=== PATIENT | female | born 2000 | race African-American/Black ===

== ENCOUNTER → 2020-11-05 14:37 | Outpatient (CLI) | payer MEDICAID, SELFPAY ==
[2020-11-05 15:01] LABS: Absolute Lymphocyte Count 2.62 X10^3/uL (0.83-4.51); Basophil# 0.02 X10^3/uL; Basophil% 0.2 % (0-1); Eosinophil# 0.09 X10^3/uL; Hematocrit 37.6 % (37-47); Hemoglobin 12.5 g/dL (12.0-15.0); Lymphocyte # 2.62 X10^3/ul (4.0); Lymphocyte % 28.8 % (19-41); Mean Corp Hgb Conc 33.2 g/dL (32-36); Mean Corpuscular Hgb 29.9 pg (27.0-32.0); Mean Platelet Vol. 8.9 fl (6.2-12.0); Monocyte# 0.37 X10^3/uL; Monocyte% 4.1 % (0-10); NRBC Flagged by Analyzer 0 % (0-5); Neutrophil # 5.98 X10^3/uL (2.7-7.7); Neutrophil % 65.7 % (47-70); Platelet Count 335 K/mm3 (150-450); RBC Distribution Width CV 15.1 % (11.6-14.6); RBC Distribution Width SD 49.8 fl (35.1-43.9); Red Blood Count 4.18 M/mm3 (4.2-5.4); White Blood Count 9.1 K/mm3 (4.4-11.0)
[2020-11-09 20:07] LABS: Alternaria tenuis <0.10 kU/L (Class 0); Ash, White <0.10 kU/L (Class 0); Aspergillus fumigatus <0.10 kU/L (Class 0); Bermuda Grass <0.10 kU/L (Class 0); Birch <0.10 kU/L (Class 0); Black Walnut <0.10 kU/L (Class 0); Cat Hair / Dander,Stand <0.10 kU/L (Class 0); Cedar, Mountain <0.10 kU/L (Class 0); Cladosporium herbarum <0.10 kU/L (Class 0); Cockroach, American <0.10 kU/L (Class 0); Cottonwood <0.10 kU/L (Class 0); D farinae Mite 1.38 kU/L (Class II); D pteronyssinus 0.32 kU/L (Class I); Dog Epithelia <0.10 kU/L (Class 0); Elm, American White <0.10 kU/L (Class 0); Immunoglobulin E 11 IU/mL (6-495); Maple/Box Elder <0.10 kU/L (Class 0); Mulberry, White <0.10 kU/L (Class 0); Oak, White <0.10 kU/L (Class 0); Pecan <0.10 kU/L (Class 0); Penicillium Notatum <0.10 kU/L (Class 0); Pigweed, Rough <0.10 kU/L (Class 0); Ragweed, Short/Common <0.10 kU/L (Class 0); Russian Thistle <0.10 kU/L (Class 0); Sheep Sorrel 0.11 kU/L (Class 0/I); Sycamore, American <0.10 kU/L (Class 0); Timothy Grass <0.10 kU/L (Class 0)
[2020-11-09 20:11] LABS: Mouse Urine <0.10 kU/L (Class 0)
[2020-11-10 15:01] LABS: Immunoglobulin E 11 IU/mL (6-495)
== END ==
PROVIDERS: PCP Family Medicine; Referring Provider Internal Medicine Critical Care Medicine; Visit Provider Internal Medicine Critical Care Medicine
DX: J45.909 Unspecified asthma, uncomplicated (principal)
CPT/HCPCS: 36415; 82785; 85025; 86003

== ENCOUNTER 2021-02-15 23:05 | Emergency (ER) | payer MEDICAID, SELFPAY ==
[2021-02-15 23:06] VITALS: BP 139/87; PULSE 101; RESP 18; TEMP 36.2; O2SAT 97; BMI 41.1
[2021-02-15 23:46] LABS: Bedside Glucose > 500 mg/dL (70-110)
[2021-02-15 23:55] LABS: Absolute Lymphocyte Count 2.97 X10^3/uL (0.83-4.51); Absolute Neutrophil Count 5.5 X10^3/uL (2.0-7.7); Basophil# 0.03 X10^3/uL; Basophil% 0.3 % (0-1); Eosinophil# 0.07 X10^3/uL; Eosinophils% 0.8 % (0-5); Hematocrit 41.6 % (37-47); Hemoglobin 14.8 g/dL (12.0-15.0); Lymphocyte # 2.97 X10^3/ul (0.83-4.51); Mean Corp Hgb Conc 35.6 g/dL (32-36); Mean Corpuscular Volume 92.9 fL (81-99); Mean Platelet Vol. 10.1 fl (6.2-12.0); Monocyte# 0.41 X10^3/uL; Monocyte% 4.6 % (0-10); NRBC Flagged by Analyzer 0 % (0-5); Neutrophil # 5.48 X10^3/uL (2.7-7.7); Platelet Count 295 K/mm3 (150-450); RBC Distribution Width CV 13.2 % (11.6-14.6); RBC Distribution Width SD 44.8 fl (35.1-43.9); Red Blood Count 4.48 M/mm3 (4.2-5.4)
[2021-02-16 00:01] LABS: Internal QC Validated? YES +Cl - CLEAR BKGD; Pregnancy, Serum, hCG Quali. NEGATIVE Negative
[2021-02-16 00:29] LABS: Anion Gap 13 (5-15); BUN 9 mg/dL (7-18); BUN/Creat Ratio 6.7 RATIO (10-20); Calcium,Total 8.8 mg/dL (8.5-10.1); Chloride 96 mmol/L (98-107); Creatinine, Serum 1.35 mg/dL (0.55-1.02); EST Glomerular Filtration Rate 52 mL/min (>60); Est Glom Filt Rate - Afr Amer 63 mL/min (>60); Estimated Creatinine Clearance 73.06 ml/min; Glucose 621 mg/dL (74-106); Potassium 4.4 mmol/L (3.5-5.1); Sodium Level 133 mmol/L (136-145)
[2021-02-16] MEDS: 0.9% Normal Saline 1,000 ML 999 ML IV (00:31)
--- NOTE | 2021-02-16 00:34 | EX.ED.DYSGE1 ---
HPI History of Present Illness Chief Complaint: Hyperglycemia Informant: patient Narrative Narrative: Patient is a 20-year-old female with a past medical history of diabetes, asthma who presents to the emergency department for hyperglycemia. She states that she has not been taking any of her insulin over the past couple of days. She follows with her physician for this but was referred to continuous conveyor screen drier but has not had a chance to get an appointment yet. She states that her sugars drop too quickly whenever she is on her normal dose of insulin. They have been tweaking her dose numbers. Because of this she quit taking it altogether. She has been having increased thirst and urination. She has been feeling generally weak. She has been having nausea and vomiting as well. She denies any fevers or chills. No cough. No chest pain. Some intermittent shortness of breath. No change in bowel movements. No abdominal pain. [facility] Medical History (Updated 02/16/21 @ 02:[address] Solis Gant, DO) Asthma Depression Diabetes Essential hypertension History of migraine Insomnia Left ventricular noncompaction Low back pain Pneumonia (09/09/20) Shortness of breath Home Medications L norgest/E estradiol-E estrad 0.15 mg-30 mcg (84)/10 mcg(7) tabs,3mos 1 tab PO DAILY 10/06/20 [History Last Taken Unknown] albuterol sulfate 2.5 mg INHALATION Q6H PRN 10/06/20 [History Last Taken Unknown] albuterol sulfate 90 mcg/actuation aerosol inhaler 2 puff INHALATION Q6H PRN 10/06/20 [History Last Taken Unknown] amlodipine 5 mg tablet 5 mg PO DAILY 10/06/20 [History Last Taken Unknown] budesonide-formoterol HFA 160 mcg-4.5 mcg/actuation aerosol inhaler 2 puff INHALATION BID 10/06/20 [History Last Taken Unknown] cetirizine 10 mg tablet 10 mg PO DAILY 10/06/20 [History Last Taken Unknown] fluticasone furoate 100 mcg-vilanterol 25 mcg/dose inhalation powder 1 inh INHALATION DAILY 10/06/20 [History Last Taken Unknown] fluticasone propionate 50 mcg/actuation nasal spray,suspension 2 spray INTRANASAL DAILY 10/06/20 [History Last Taken Unknown] insulin glargine 100 unit/mL (3 mL) subcutaneous pen 48 unit SC QPM ml 10/06/20 [History Last Taken Unknown] insulin lispro 100 unit/mL subcutaneous pen 9 unit SC TID ml 10/06/20 [History Last Taken Unknown] propranolol 20 mg tablet 20 mg PO BID 10/06/20 [History Last Taken Unknown] sumatriptan succinate 50 mg tablet See Rx Instructions PO .COMPLEX 10/06/20 [History Last Taken Unknown] sertraline 50 mg PO DAILY 02/15/21 [History Last Taken Unknown] Allergy/AdvReac Type Severity Reaction Status Date / Time amoxicillin Allergy Unknown unknown Verified 02/15/21 23:09 azithromycin Allergy Unknown unknown Verified 02/15/21 23:09 [From Zithromax Z-Clyde] Penicillins Allergy Unknown unknown Verified 02/15/21 23:09 Family History Father Suicide Surgical History History of myringotomy History of tonsillectomy and adenoidectomy Social History Smoking Status: Current every day smoker tobacco type: cigarettes alcohol intake: current alcohol intake frequency: a few times a month Alcohol type: hard liquor substance use type: does not use caffeine: No ROS ROS ED Constitutional Constitutional ED: Denies chills or fever(s) Eyes Eyes: Denies change in vision ENT ENT ED: Denies epistaxis or rhinorrhea Cardiovascular Cardiovascular: Denies chest pain or palpitations Respiratory/Chest Respiratory/Chest: Denies cough, dyspnea or dyspnea on exertion Gastrointestinal Gastrointestinal: Reports nausea and vomiting; Denies abdominal pain or diarrhea Genitourinary Genitourinary ED: Reports urinary frequency; Denies dysuria or hematuria Musculoskeletal Musculoskeletal: Denies back pain or neck pain Integumentary Denies rash Neurologic Neurologic: Denies dizziness, headache(s) or weakness Endocrine Endocrinology: Reports polydipsia and polyuria EXAM Physical Exam Const Vital Signs: 02/15/21 23:06 02/15/21 23:41 Temperature 97.1 F L Temperature Source Temporal Pulse Rate 101 H Respiratory Rate 18 Respiratory Effort Normal Non-Labored Respiratory Pattern Normal Blood Pressure 139/87 H Blood Pressure Mean 104 Pulse Ox 97 Oxygen Delivery Method Room Air Positive well nourished and well developed General Appearance ED: well developed and NAD HEENT Reports normocephalic, head/scalp atraumatic and moist mucous membranes Eyes PERRL and EOMs intact bilaterally Neck no lymphadenopathy and supple General: Negative for tenderness Chest Wall inspection of chest normal Resp normal respiratory effort and clear to auscultation bilaterally Auscultation: Negative for rales, rhonchi or wheezes Cardio regular rate, regular rhythm and no murmurs GI normal to inspection, nondistended, normoactive bowel sounds and non-tender Palpation: soft; Negative for guarding or rebound tenderness present Back/Spine no CVA tenderness Extremity normal to inspection General Extremety ED: Negative for edema or tenderness General Extremity: Negative for edema Neuro oriented x3, CN's II-XII intact bilaterally and no sensory deficits noted Sensorium / Orientation: alert Motor Exam: strength 5/5 throughout Psych mental status grossly normal Skin no rashes or lesions noted MDM MDM MDM Narrative Medical decision making narrative: Patient presents to the emergency department for hyperglycemia. She has not been taking any of her insulin over the past couple of days. Upon arrival she is borderline tachycardic but otherwise normal vital signs. She is in no acute distress. Basic lab work was obtained which did show her to be hyperglycemic. She started on normal saline and given a subcu dose of insulin. No evidence of diabetic ketoacidosis. She does have any ketones and she has a normal anion gap. After patient received fluids and insulin her glucose dropped from 621 to 488. The importance of being compliant with insulin medications was discussed with her. I talked her about acute and future risk associated with having elevated blood sugars. Patient otherwise has remained stable throughout ED stay. At this time will discharge home in stable condition. She is to follow-up with her PCP and continuous conveyor screen drier as soon as possible. She understands and is agreeable with plan. All questions were answered. Lab Data Labs: Laboratory Results - last 24 hr 02/15/21 02/15/21 02/15/21 23:35 23:35 23:35 WBC 9.0 RBC 4.48 Hgb 14.8 Hct 41.6 MCV 92.9 MCH 33.0 H MCHC 35.6 RDW Std Deviation 44.8 H RDW Coeff of [place] 13.2 Plt Count 295 MPV 10.1 Immature Gran % (Auto) 0.300 Neut % (Auto) 61.0 Lymph % (Auto) 33.0 Faulk % (Auto) 4.6 Eos % (Auto) 0.8 Baso % (Auto) 0.3 Absolute Neuts (auto) 5.5 Absolute Lymphs (auto) 2.97 Nucleated RBC % 0 Sodium 133 L Potassium 4.4 Chloride 96 L Carbon Dioxide 24.0 Anion Gap 13 BUN 9 Creatinine 1.35 H Estim Creat Clear Calc 73.06 Est GFR (MDRD) Af Amer 63 Est GFR (MDRD) Non-Af 52 L BUN/Creatinine Ratio 6.7 L Glucose 621 H* Calcium 8.8 Serum , Qual NEGATIVE Acetone Level POC Glucose 02/15/21 02/15/21 02/16/21 23:35 23:40 01:44 WBC RBC Hgb Hct MCV MCH MCHC RDW Std Deviation RDW Coeff of [place] Plt Count MPV Immature Gran % (Auto) Neut % (Auto) Lymph % (Auto) Faulk % (Auto) Eos % (Auto) Baso % (Auto) Absolute Neuts (auto) Absolute Lymphs (auto) Nucleated RBC % Sodium Potassium Chloride Carbon Dioxide Anion Gap BUN Creatinine Estim Creat Clear Calc Est GFR (MDRD) Af Amer Est GFR (MDRD) Non-Af BUN/Creatinine Ratio Glucose Calcium Serum , Qual Acetone Level NEGATIVE POC Glucose > 500 H* 488 H* Discharge Plan Triage Chief Complaint: Hyperglycemia ED Provider: Solis Gant Dx/Rx/DC Orders Clinical Impression: Hyperglycemia Instructions: ED Diabetic Hyperglycemia Prescriptions: No Action albuterol sulfate 2.5 mg /3 mL (0.083 %) solution for nebulization 2.5 mg INHALATION Q6H PRN (Reason: Shortness Of Breath Or Wheezing) RF: 0 albuterol sulfate [ProAir HFA] 90 mcg/actuation HFA aerosol inhaler 2 puff INHALATION Q6H PRN (Reason: Shortness Of Breath Or Wheezing) RF: 0 amlodipine 5 mg tablet 5 mg PO DAILY RF: 0 budesonide-formoterol [Symbicort] 160-4.5 mcg/actuation HFA aerosol inhaler 2 puff INHALATION BID RF: 0 cetirizine 10 mg tablet 10 mg PO DAILY RF: 0 L norgest/e.estradiol-e.estrad [Ashlyna] 0.15 mg-30 mcg (84)/10 mcg (7) tablets,dose pack,3 month 1 tab PO DAILY RF: 0 fluticasone propionate [Allergy Relief (fluticasone)] 50 mcg/actuation spray,suspension 2 spray INTRANASAL DAILY RF: 0 Breo Ellipta 100-25 mcg/dose blister with device 1 inh INHALATION DAILY RF: 0 insulin glargine 100 unit/mL (3 mL) insulin pen 48 unit SC QPM RF: 0 insulin lispro 100 unit/mL insulin pen 9 unit SC TID RF: 0 propranolol 20 mg tablet 20 mg PO BID RF: 0 sumatriptan succinate 50 mg tablet See Rx Instructions PO .COMPLEX RF: 0 sertraline 50 mg tablet 50 mg PO DAILY RF: 0 Primary Care Provider: Jose Sultana Referrals: Jose Sultana MD [Primary Care Provider] - 1 Day Disposition Disposition: Home, self care Discharge Date/Time: 02/16/21 02:14
[2021-02-16] MEDS: Insulin Lispro 100 UNIT/ML INSULN.PEN 15 UNIT SC (00:42)
[2021-02-16 01:51] LABS: Bedside Glucose 488 mg/dL (70-110)
== END 2021-02-16 02:14 | disposition home or self-care (01) ==
PROVIDERS: Emergency Provider Emergency Medicine; PCP Family Medicine
DX: E11.65 Type 2 diabetes mellitus with hyperglycemia (principal); J45.909 Unspecified asthma, uncomplicated; I10 Essential (primary) hypertension; F32.9 Major depressive disorder, single episode, unspecified; F17.210 Nicotine dependence, cigarettes, uncomplicated; Z91.14 Patient's other noncompliance with medication regimen; Z79.4 Long term (current) use of insulin; Z79.51 Long term (current) use of inhaled steroids; Z79.899 Other long term (current) drug therapy
CPT/HCPCS: 80048; 82009; 82962; 84703; 85025; 96360; 99283; J7030; A4216

== ENCOUNTER 2021-04-13 00:18 | Emergency (ER) | payer MEDICAID, SELFPAY ==
[2021-04-13 00:19] VITALS: BP 131/75; PULSE 58; RESP 17; TEMP 36.9; O2SAT 99; BMI 43.3
[2021-04-13] MEDS: Lidocaine 1% (20 ml mdv) 20 ML Vial INFILT (01:14)
[2021-04-13] MEDS: Fluconazole 100 MG Tablet 200 MG PO (01:14)
[2021-04-13] MEDS: Lidocaine/Epi/Tetracaine 50 ML 1 APPLIC TOPICAL (01:14)
--- NOTE | 2021-04-13 01:59 | EX.ED.DYSGE1 ---
HPI History of Present Illness Chief Complaint: General Illness Informant: patient Onset/Context/Timing Onset: Days Narrative Narrative: Patient presents with 2 complaints. She complains of a yeast infection that she has had for the last 1 week. She tried some [id number] treatment without improvement. Patient states she also has a growth on her right thigh for the past couple of days that is becoming larger and more painful. She denies fever or chills. [facility] Medical History Asthma Depression Diabetes Essential hypertension History of migraine Insomnia Left ventricular noncompaction Low back pain Pneumonia (09/09/20) Shortness of breath Home Medications albuterol sulfate 2.5 mg INHALATION Q6H PRN 10/06/20 [History Last Taken Unknown] albuterol sulfate 90 mcg/actuation aerosol inhaler 2 puff INHALATION Q6H PRN 10/06/20 [History Last Taken Unknown] amlodipine 5 mg tablet 5 mg PO DAILY 10/06/20 [History Last Taken Unknown] budesonide-formoterol HFA 160 mcg-4.5 mcg/actuation aerosol inhaler 2 puff INHALATION BID 10/06/20 [History Last Taken Unknown] cetirizine 10 mg tablet 10 mg PO DAILY 10/06/20 [History Last Taken Unknown] fluticasone propionate 50 mcg/actuation nasal spray,suspension 2 spray INTRANASAL DAILY 10/06/20 [History Last Taken Unknown] insulin glargine 100 unit/mL (3 mL) subcutaneous pen 48 unit SC QPM ml 10/06/20 [History Last Taken Unknown] insulin lispro 100 unit/mL subcutaneous pen 9 unit SC TID ml 10/06/20 [History Last Taken Unknown] propranolol 20 mg tablet 20 mg PO BID 10/06/20 [History Last Taken Unknown] sumatriptan succinate 50 mg tablet See Rx Instructions PO .COMPLEX 10/06/20 [History Last Taken Unknown] sertraline 50 mg PO DAILY 02/15/21 [History Last Taken Unknown] Allergy/AdvReac Type Severity Reaction Status Date / Time amoxicillin Allergy Unknown unknown Verified 04/13/21 00:24 azithromycin Allergy Unknown unknown Verified 04/13/21 00:24 [From ZiPearltreesx Z-Clyde] Penicillins Allergy Unknown unknown Verified 04/13/21 00:24 Family History Father Suicide Surgical History History of myringotomy History of tonsillectomy and adenoidectomy Social History Smoking Status: Current every day smoker tobacco type: cigarettes alcohol intake: current alcohol intake frequency: a few times a month Alcohol type: hard liquor substance use type: does not use caffeine: No ROS ROS ED Constitutional Constitutional ED: Denies chills or fever(s) Eyes Eyes: Denies change in vision ENT ENT ED: Denies sore throat Cardiovascular Cardiovascular: Denies chest pain Respiratory/Chest Respiratory/Chest: Denies cough or dyspnea Gastrointestinal Gastrointestinal: Denies abdominal pain, diarrhea, nausea or vomiting Genitourinary Genitourinary ED: Denies dysuria Musculoskeletal Musculoskeletal: Denies back pain Integumentary Reports abscess; Denies rash Neurologic Neurologic: Denies headache(s) or weakness Psychiatric Psychiatric: Denies anxiety or depression Endocrine Endocrinology: Denies polydipsia or polyuria Allergic/Immunologic Allergic/Immunologic ED: Denies urticaria EXAM Physical Exam Const Vital Signs: 04/13/21 00:19 04/13/21 02:27 Temperature 98.4 F Temperature Source Oral Pulse Rate 58 L 78 Respiratory Rate 17 15 Blood Pressure 131/75 H 130/78 H Blood Pressure Mean 93 Pulse Ox 99 99 Oxygen Delivery Method Room Air Positive well nourished and well developed General Appearance ED: well developed HEENT Reports normocephalic and head/scalp atraumatic Eyes PERRL and EOMs intact bilaterally Neck supple Chest Wall inspection of chest normal and palpation of chest normal Resp normal respiratory effort and clear to auscultation bilaterally Cardio regular rate and regular rhythm GI normal to inspection, nondistended, normoactive bowel sounds Palpation: soft Extremity normal to inspection Neuro oriented x3 and no sensory deficits noted Sensorium / Orientation: alert Motor Exam: strength 5/5 throughout Psych mental status grossly normal Skin Skin Narrative: 1 cm diameter cutaneous abscess the proximal right thigh. No surrounding cellulitis. MDM MDM MDM Narrative Medical decision making narrative: Patient given a tab of Diflucan. Patient did agree for I&D of her cutaneous abscess. Treatment and Re-Evaluation Comments:: 1 cc 1% lidocaine is used locally after let had been applied to the wound. As I was infusing the lidocaine the abscess open and spontaneously drained. Wound was cleansed and dressed. Discharge Plan Triage Chief Complaint: General Illness ED Provider: Mónica Zhou Dx/Rx/DC Orders Clinical Impression: Yeast vaginitis, Cutaneous abscess Instructions: ED Abscess Incision And Drainage, ED JUAN VAGINITIS Prescriptions: No Action albuterol sulfate 2.5 mg /3 mL (0.083 %) solution for nebulization 2.5 mg INHALATION Q6H PRN (Reason: Shortness Of Breath Or Wheezing) RF: 0 albuterol sulfate [ProAir HFA] 90 mcg/actuation HFA aerosol inhaler 2 puff INHALATION Q6H PRN (Reason: Shortness Of Breath Or Wheezing) RF: 0 amlodipine 5 mg tablet 5 mg PO DAILY RF: 0 budesonide-formoterol [Symbicort] 160-4.5 mcg/actuation HFA aerosol inhaler 2 puff INHALATION BID RF: 0 cetirizine 10 mg tablet 10 mg PO DAILY RF: 0 fluticasone propionate [Allergy Relief (fluticasone)] 50 mcg/actuation spray,suspension 2 spray INTRANASAL DAILY RF: 0 insulin glargine 100 unit/mL (3 mL) insulin pen 48 unit SC QPM RF: 0 insulin lispro 100 unit/mL insulin pen 9 unit SC TID RF: 0 propranolol 20 mg tablet 20 mg PO BID RF: 0 sumatriptan succinate 50 mg tablet See Rx Instructions PO .COMPLEX RF: 0 sertraline 50 mg tablet 50 mg PO DAILY RF: 0 Primary Care Provider: Jose Sultana Referrals: Jose Sultana MD [Primary Care Provider] - 5-7 Days Disposition Disposition: Home, Self Care Discharge Date/Time: 04/13/21 02:28
[2021-04-13 02:27] VITALS: BP 130/78; PULSE 78; RESP 15; O2SAT 99
== END 2021-04-13 02:28 | disposition home or self-care (01) ==
PROVIDERS: Emergency Provider Emergency Medicine; PCP Family Medicine
DX: L02.415 Cutaneous abscess of right lower limb (principal); B37.3 Candidiasis of vulva and vagina; J45.909 Unspecified asthma, uncomplicated; F32.9 Major depressive disorder, single episode, unspecified; E11.9 Type 2 diabetes mellitus without complications; I10 Essential (primary) hypertension; F17.210 Nicotine dependence, cigarettes, uncomplicated; Z79.4 Long term (current) use of insulin; Z79.51 Long term (current) use of inhaled steroids; Z79.899 Other long term (current) drug therapy
CPT/HCPCS: 10060; 99283

== ENCOUNTER 2021-05-15 23:23 | Emergency (ER) | payer MEDICAID, SELFPAY ==
[2021-05-15 23:23] VITALS: BP 144/95; PULSE 91; RESP 20; TEMP 36.9; O2SAT 98; BMI 39.9
--- NOTE | 2021-05-16 00:33 | EDS_ITS ---
HPI History of Present Illness Chief Complaint: General Illness Narrative Narrative: Patient is a 20-year-old female with history of diabetes who states she has had 3 days of nasal congestion and sinus pressure. She denies any known sick contacts or fevers. She denies any cough associated with this. She also reports he has had vaginal discharge consistent with a yeast infection. She states she feels her symptoms have been progressively worsening over the past few days and therefore comes in for evaluation [facility] Medical History (Updated 05/16/21 @ 00:[address] Elroy Jain, ) Asthma Depression Diabetes Essential hypertension History of migraine Insomnia Left ventricular noncompaction Low back pain Pneumonia (09/09/20) Shortness of breath Home Medications albuterol sulfate 2.5 mg INHALATION Q6H PRN 10/06/20 [History Last Taken Unknown] albuterol sulfate 90 mcg/actuation aerosol inhaler 2 puff INHALATION Q6H PRN 10/06/20 [History Last Taken Unknown] amlodipine 5 mg tablet 5 mg PO DAILY 10/06/20 [History Last Taken Unknown] budesonide-formoterol HFA 160 mcg-4.5 mcg/actuation aerosol inhaler 2 puff INHALATION BID 10/06/20 [History Last Taken Unknown] cetirizine 10 mg tablet 10 mg PO DAILY 10/06/20 [History Last Taken Unknown] fluticasone propionate 50 mcg/actuation nasal spray,suspension 2 spray INTRANASAL DAILY 10/06/20 [History Last Taken Unknown] insulin glargine 100 unit/mL (3 mL) subcutaneous pen 55 unit SC QPM ml 10/06/20 [History Last Taken Unknown] insulin lispro 100 unit/mL subcutaneous pen 15 unit SC TID ml 10/06/20 [History Last Taken Unknown] propranolol 20 mg tablet 20 mg PO BID 10/06/20 [History Last Taken Unknown] sumatriptan succinate 50 mg tablet See Rx Instructions PO .COMPLEX 10/06/20 [History Last Taken Unknown] sertraline 50 mg PO DAILY 02/15/21 [History Last Taken Unknown] azelastine 2 spray INTRANASAL BID #30 ml 05/16/21 [Rx Last Taken Unknown] fluconazole [Diflucan] 150 mg PO Q3D 3 Days #3 tab 05/16/21 [Rx Last Taken Unknown] lorazepam 1 mg PO 4X/DAY PRN PRN 05/16/21 [History Last Taken Unknown] prednisone 40 mg PO DAILY #10 tab 05/16/21 [Rx Last Taken Unknown] Allergy/AdvReac Type Severity Reaction Status Date / Time amoxicillin Allergy Unknown unknown Verified 05/16/21 00:12 azithromycin Allergy Unknown unknown Verified 05/16/21 00:12 [From Zithromax Z-Clyde] Penicillins Allergy Unknown unknown Verified 05/16/21 00:12 Family History Father Suicide Surgical History History of myringotomy History of tonsillectomy and adenoidectomy Social History Smoking Status: Former smoker alcohol intake: current alcohol intake frequency: a few times a month Alcohol type: hard liquor substance use type: does not use caffeine: No ROS ROS ED Constitutional Constitutional ED: Denies chills or fever(s) ENT ENT ED: Reports rhinorrhea; Denies sore throat Cardiovascular Cardiovascular: Denies chest pain Respiratory/Chest Respiratory/Chest: Denies cough or dyspnea Gastrointestinal Gastrointestinal: Denies abdominal pain, diarrhea, nausea or vomiting Genitourinary Genitourinary ED: Denies dysuria Musculoskeletal Musculoskeletal: Denies myalgias Integumentary Denies rash Neurologic Neurologic: Denies headache(s) Hematologic/Lymphatic Hematologic/Lymphatic: Denies easy bleeding or easy bruising EXAM Physical Exam Const Vital Signs: 05/15/21 23:23 05/16/21 00:14 Temperature 98.4 F Temperature Source Temporal Pulse Rate 91 Respiratory Rate 20 H Respiratory Effort Normal Non-Labored Respiratory Pattern Normal Blood Pressure 144/95 H Blood Pressure Mean 111 Pulse Ox 98 Oxygen Delivery Method Room Air Positive well nourished and well developed General Appearance ED: well developed HEENT Reports TM's clear and moist mucous membranes HEENT Narrative: Nasal mucosa is hyperemic and boggy with enlarged inferior nasal turbinates. There is cobblestoning the posterior pharynx consistent with sinus drainage but no airway edema or compromise. No pain to palpation over top the maxillary frontal or ethmoid sinuses Tympanic Membrane ED: Yes TM's clear Eyes PERRL and EOMs intact bilaterally Neck supple Neck Narrative: Positive anterior cervical lymphadenopathy noted Resp normal respiratory effort and clear to auscultation bilaterally Cardio regular rate and regular rhythm GI normal to inspection, nondistended, normoactive bowel sounds, non-tender and non-distended Auscultation: normoactive bowel sounds Palpation: soft Extremity normal to inspection Neuro oriented x3 and CN's II-XII intact bilaterally Sensorium / Orientation: alert Psych mental status grossly normal Skin no rashes or lesions noted MDM MDM MDM Narrative Medical decision making narrative: Patient presented to the ER afebrile with clear lungs and no report of cough or signs of respiratory distress. Her 3 days of congestion along with inflamed nasal turbinates indicates a viral illness. As she is not had symptoms for 10 to 14 days and no fever do not feel this is bacterial in nature. We discussed possible Covid swab the patient has no concern for this and therefore does not want one obtained. At this point I feel she has a viral sinusitis and and be placed on symptomatic medications for this but as I have low concern for systemic infection is safe for discharge Discharge Plan Triage Chief Complaint: General Illness ED Provider: Elroy Jain Dx/Rx/DC Orders Clinical Impression: Viral illness Instructions: ED URI, Viral, No Abx (Adult) Prescriptions: New prednisone 20 mg tablet 40 mg PO DAILY Qty: 10 RF: 0 fluconazole [Diflucan] 150 mg tablet 150 mg PO Q3D 3 Days Qty: 3 RF: 0 azelastine 137 mcg (0.1 %) aerosol,spray 2 spray intranasal BID Qty: 30 RF: 0 No Action albuterol sulfate 2.5 mg /3 mL (0.083 %) solution for nebulization 2.5 mg INHALATION Q6H PRN (Reason: Shortness Of Breath Or Wheezing) RF: 0 albuterol sulfate [ProAir HFA] 90 mcg/actuation HFA aerosol inhaler 2 puff INHALATION Q6H PRN (Reason: Shortness Of Breath Or Wheezing) RF: 0 amlodipine 5 mg tablet 5 mg PO DAILY RF: 0 budesonide-formoterol [Symbicort] 160-4.5 mcg/actuation HFA aerosol inhaler 2 puff INHALATION BID RF: 0 cetirizine 10 mg tablet 10 mg PO DAILY RF: 0 fluticasone propionate [Allergy Relief (fluticasone)] 50 mcg/actuation spray,suspension 2 spray INTRANASAL DAILY RF: 0 insulin glargine 100 unit/mL (3 mL) insulin pen 55 unit SC QPM RF: 0 insulin lispro 100 unit/mL insulin pen 15 unit SC TID RF: 0 propranolol 20 mg tablet 20 mg PO BID RF: 0 sumatriptan succinate 50 mg tablet See Rx Instructions PO .COMPLEX RF: 0 sertraline 50 mg tablet 50 mg PO DAILY RF: 0 lorazepam 1 mg tablet 1 mg PO 4X/DAY PRN PRN (Reason: Anxiety) RF: 0 Primary Care Provider: Jose Sultana Referrals: Jose Sultana MD [Primary Care Provider] - Disposition Disposition: Home, Self Care
[2021-05-16] MEDS: Fluconazole 100 MG Tablet 150 MG PO (00:39)
[2021-05-16] MEDS: dexAMETHasone 4 MG Tablet 10 MG PO (01:00)
== END 2021-05-16 01:32 | disposition home or self-care (01) ==
LOC: ED 05-16 00:53
PROVIDERS: Emergency Provider Emergency Medicine; PCP Family Medicine
DX: B34.9 Viral infection, unspecified (principal); J45.909 Unspecified asthma, uncomplicated; F32.9 Major depressive disorder, single episode, unspecified; E11.9 Type 2 diabetes mellitus without complications; I10 Essential (primary) hypertension; Z79.4 Long term (current) use of insulin; Z79.51 Long term (current) use of inhaled steroids; Z79.899 Other long term (current) drug therapy; Z87.891 Personal history of nicotine dependence
CPT/HCPCS: 99283

== ENCOUNTER → 2021-05-20 16:01 | Outpatient (CLI) | payer MEDICAID, SELFPAY ==
[2021-05-20 17:15] LABS: Vitamin B12 403 pg/mL (211-911); Vitamin D,25 Hydroxy 18.1 ng/mL
[2021-05-20 17:23] LABS: Cholesterol 191 mg/dL (200); High Density Lipoprotein 27 mg/dL; Thyroid Stim Hormone (TSH) 2.68 uIU/mL (0.358-3.74); Triglycerides 578 mg/dL
[2021-05-23 08:23] LABS: C-Peptide 1.6 ng/mL (1.1-4.4)
== END ==
PROVIDERS: PCP Family Medicine; Referring Provider Nurse Practitioner Family; Visit Provider Nurse Practitioner Family
DX: E11.9 Type 2 diabetes mellitus without complications (principal); R20.2 Paresthesia of skin
CPT/HCPCS: 36415; 80061; 82306; 82607; 84443; 84681

== ENCOUNTER 2021-06-08 14:14 | Observation (INO) | payer MEDICAID, SELFPAY ==
[2021-06-08] VITALS (12 sets, daily range): BP systolic 124–148; BP diastolic 74–110; PULSE 76–92; RESP 13–19; TEMP 36.2–37.2; O2SAT 96–99; BMI 33.0; BMI 38.0
--- NOTE | 2021-06-08 15:10 | EDS_ITS ---
HPI History of Present Illness Chief Complaint: General Illness Informant: patient Onset/Context/Timing Onset: Days (2) Context: Gradual Onset Timing: Continuous Quality: Burning, aching Location: Back Worsened by: Nothing Relieved by: Nothing Narrative Narrative: Patient presents with cough, sinus pressure, decreased appetite and myalgias for the past 2 days. Patient states it is gradually gotten worse. Patient states it has been constant. Patient states nothing makes it better nothing makes it worse. Patient admits to a cough but denies any sputum production. Patient admits to subjective fevers and chills. Patient admits to some sharp pain in her chest. Patient denies any exposures to COVID-19. Patient states she has not gotten her COVID-19 vaccine. [facility] Medical History Asthma Depression Diabetes Essential hypertension History of migraine Insomnia Left ventricular noncompaction Low back pain Obesity (BMI 30-39.9) Paresthesia Pneumonia (09/09/20) Shortness of breath Home Medications albuterol sulfate 2.5 mg INHALATION Q6H PRN 10/06/20 [History Last Taken Unkno wn] albuterol sulfate 90 mcg/actuation aerosol inhaler 2 puff INHALATION Q6H PRN 10/06/20 [History Last Taken Unknown] amlodipine 5 mg tablet 5 mg PO DAILY 10/06/20 [History Last Taken Unknown] budesonide-formoterol HFA 160 mcg-4.5 mcg/actuation aerosol inhaler 2 puff INHALATION BID 10/06/20 [History Last Taken Unknown] cetirizine 10 mg tablet 10 mg PO DAILY 10/06/20 [History Last Taken Unknown] fluticasone propionate 50 mcg/actuation nasal spray,suspension 2 spray INTRANASAL DAILY 10/06/20 [History Last Taken Unknown] insulin glargine 100 unit/mL (3 mL) subcutaneous pen 55 unit SC QPM ml 10/06/20 [History Last Taken Unknown] insulin lispro 100 unit/mL subcutaneous pen 15 unit SC TID ml 10/06/20 [History Last Taken Unknown] propranolol 20 mg tablet 20 mg PO BID 10/06/20 [History Last Taken Unknown] sumatriptan succinate 50 mg tablet See Rx Instructions PO .COMPLEX 10/06/20 [History Last Taken Unknown] sertraline 50 mg PO DAILY 02/15/21 [History Last Taken Unknown] azelastine 2 spray INTRANASAL BID #30 ml 05/16/21 [Rx Last Taken Unknown] lorazepam 1 mg PO 4X/DAY PRN PRN 05/16/21 [History Last Taken Unknown] cholecalciferol (vitamin D3) 1,250 mcg (50,000 unit) capsule 1,250 mcg PO QWEEK #12 cap 05/21/21 [Rx Last Taken Unknown] Allergy/AdvReac Type Severity Reaction Status Date / Time amoxicillin Allergy Unknown unknown Verified 06/08/21 14:18 azithromycin Allergy Unknown unknown Verified 06/08/21 14:18 [From Zithromax Z-Clyde] Penicillins Allergy Unknown unknown Verified 06/08/21 14:18 Family History Father Suicide Surgical History History of myringotomy History of tonsillectomy and adenoidectomy Social History Smoking Status: Former smoker alcohol intake: current alcohol intake frequency: a few times a month Alcohol type: hard liquor substance use type: does not use caffeine: No ROS ROS ED Constitutional Constitutional ED: Reports chills, fever(s) and subjective Eyes Eyes: Denies blurry vision or change in vision ENT ENT ED: Reports rhinorrhea; Denies sore throat Cardiovascular Cardiovascular: Reports chest pain; Denies palpitations Respiratory/Chest Respiratory/Chest: Reports cough and dyspnea Gastrointestinal Gastrointestinal: Reports nausea and vomiting Genitourinary Genitourinary ED: Denies dysuria or hematuria Musculoskeletal Musculoskeletal: Reports back pain and myalgias; Denies neck pain Integumentary Denies abscess or rash Neurologic Neurologic: Reports headache(s); Denies weakness Allergic/Immunologic Allergic/Immunologic ED: Denies mouth swelling or urticaria EXAM Physical Exam Const Vital Signs: 06/08/21 14:16 06/08/21 17:44 06/08/21 19:34 Temperature 99 F Temperature Source Oral Pulse Rate 92 88 Respiratory Rate 16 16 Blood Pressure 124/94 H 139/74 H Blood Pressure Mean 104 95 Pulse Ox 97 98 99 Oxygen Delivery Method Room Air Room Air Room Air Positive well nourished and well developed General Appearance ED: well developed HEENT Reports moist mucous membranes Neck supple and no JVD Resp normal respiratory effort and clear to auscultation bilaterally Cardio regular rate, regular rhythm and no murmurs GI normal to inspection, nondistended, normoactive bowel sounds and non-tender Palpation: soft Extremity normal to inspection General Extremety ED: Negative for edema or tenderness General Extremity: Negative for edema Neuro oriented x3, CN's II-XII intact bilaterally and no sensory deficits noted Sensorium / Orientation: alert Motor Exam: strength 5/5 throughout Psych mental status grossly normal Skin no rashes or lesions noted MDM MDM MDM Narrative Medical decision making narrative: COVID-19 rapid antigen was obtained and came back positive. CBC was within normal limits. Comprehensive metabolic profile showed an elevated glucose of 550 with CO2 of 17 and anion gap of 18. Because of this, serum acetone was obtained and was small. Urinalysis does not show any evidence of urinary tract infection. Portable 1 view chest x-ray was obtained. On my interpretation, lung núñez are clear. There is normal cardiac si lhouette. Bony thorax is normal. There is no acute process noted. Radiologist also interpreted the x-ray and agrees. Patient was advised of her findings. Patient was started on insulin drip. Case was discussed with the hospitalist. She will admit the patient to ICU. Patient understood and was agreeable with the plan. All questions were answered. Lab Data Attestation: I reviewed the patient's lab results. Labs: Laboratory Results - last 24 hr 06/08/21 06/08/21 06/08/21 15:20 15:24 15:24 WBC 4.8 RBC 4.12 L Hgb 14.2 Hct 38.9 MCV 94.4 MCH 34.5 H MCHC 36.5 H RDW Std Deviation 39.8 RDW Coeff of [place] 11.7 Plt Count 234 MPV 9.9 Immature Gran % (Auto) 0.200 Neut % (Auto) 74.9 H Lymph % (Auto) 18.7 L [place] % (Auto) 5.4 Eos % (Auto) 0.4 Baso % (Auto) 0.4 Absolute Neuts (auto) 3.6 Absolute Lymphs (auto) 0.90 Nucleated RBC % 0.6 Sodium 132 L Potassium 4.7 Chloride 97 L Carbon Dioxide 17.0 L Anion Gap 18 H BUN 15 Creatinine 0.93 Estim Creat Clear Calc 106.05 Est GFR (MDRD) Af Amer 96 Est GFR (MDRD) Non-Af 79 BUN/Creatinine Ratio 16.1 Glucose 550 H* Calcium 9.0 Total Bilirubin 0.30 AST 64 H ALT TNP Alkaline Phosphatase 106 Total Protein 7.9 Albumin 3.4 Globulin 4.5 H Albumin/Globulin Ratio 0.8 L Urine Color Yellow Urine Clarity Sl. Cloudy Urine pH 6.5 Ur Specific [place] 1.010 Urine Protein Negative Urine Glucose (UA) 1000 H Urine Ketones 5 H Urine Occult Blood Negative Urine Nitrite Negative Urine Bilirubin Negative Urine Urobilinogen Normal Ur Leukocyte Esterase Negative Urine RBC 0 SEEN Urine WBC 0 SEEN Ur Squamous Epith Cells 0-5 SEEN Urine Bacteria RARE Urine Mucus 0 SEEN Acetone Level 06/08/21 17:40 WBC RBC Hgb Hct MCV MCH MCHC RDW Std Deviation RDW Coeff of [place] Plt Count MPV Immature Gran % (Auto) Neut % (Auto) Lymph % (Auto) [place] % (Auto) Eos % (Auto) Baso % (Auto) Absolute Neuts (auto) Absolute Lymphs (auto) Nucleated RBC % Sodium Potassium Chloride Carbon Dioxide Anion Gap BUN Creatinine Estim Creat Clear Calc Est GFR (MDRD) Af Amer Est GFR (MDRD) Non-Af BUN/Creatinine Ratio Glucose Calcium Total Bilirubin AST ALT Alkaline Phosphatase Total Protein Albumin Globulin Albumin/Globulin Ratio Urine Color Urine Clarity Urine pH Ur Specific [place] Urine Protein Urine Glucose (UA) Urine Ketones Urine Occult Blood Urine Nitrite Urine Bilirubin Urine Urobilinogen Ur Leukocyte Esterase Urine RBC Urine WBC Ur Squamous Epith Cells Urine Bacteria Urine Mucus Acetone Level SMALL H Radiography Chest X-Ray - ED: 1 View, Read by ED Physician, Read by Radiologist and Normal Diagnostic Testing: Radiology Impression Chest X-Ray 06/08/21 15:45 IMPRESSION: Normal x-ray examination of the chest. Electronically Signed: Kaden Yoder MD at 16:02 EDT Tel , Service support , Treatment and Re-Evaluation Vital Sign Attestation:: Vital signs were reviewed prior to admission. They are stable. 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
[2021-06-08] MEDS: Acetaminophen 500 MG Tablet 1000 MG PO (15:28)
[2021-06-08 15:31] LABS: Mucous, Urine 0 SEEN /hpf (<or=2+); Red Blood Cells-Urine 0 SEEN /hpf (0-5); White Blood Cells 0 SEEN /hpf (0-5)
[2021-06-08 15:37] LABS: Color, Urine Yellow (Yellow); Glucose, Dipstick 1000 mg/dl (Normal); Ketone-Dipstick 5 mg/dl (Negative); Leukocyte Esterase-Dipstick Negative /ul (Negative); Nitrite-Dipstick Negative (Negative); Occult Blood-Urine Negative /ul (Negative); Protein-Dipstick Negative (Negative); Urine Bilirubin Dipstick Negative (Negative); Urine Clarity Sl. Cloudy (Clear); Urine Urobilinogen Normal (Normal); Urine pH 6.5 (5.0 - 8.0)
--- NOTE | 2021-06-08 15:45 | RAD_ITS ---
STUDY: X-RAY CHEST REASON FOR EXAM: Female, 20 years old. Cough TECHNIQUE: Single AP portable view of the chest. COMPARISON: None. FINDINGS: The lungs are clear and expanded. There is no demonstrated pleural abnormality. Normal size heart. Normal mediastinum and blake. Normal visualized pulmonary arteries. Normal visualized aortic arch and descending thoracic aorta. Normal visualized thoracic spine. Normal visualized ribs, clavicles, and shoulders. There is no demonstrated abnormality of the visualized soft tissue structures of the upper abdomen. RAD/Chest 1 View (Portable) IMPRESSION: Normal x-ray examination of the chest. Electronically Signed: Kaden Yoder MD at 16:02 EDT Tel , Service support ,
[2021-06-08 15:46] LABS: Bacteria RARE /hpf (None Seen); Squamous Epithelial Cells - UA 0-5 SEEN /hpf (5-10)
[2021-06-08 16:02] LABS: Absolute Neutrophil Count 3.6 X10^3/uL (2.0-7.7); Basophil# 0.02 X10^3/uL; Basophil% 0.4 % (0-1); Eosinophil# 0.02 X10^3/uL; Eosinophils% 0.4 % (0-5); Hematocrit 38.9 % (37-47); Hemoglobin 14.2 g/dL (12.0-15.0); Lymphocyte % 18.7 % (19-41); Mean Corp Hgb Conc 36.5 g/dL (32-36); Mean Corpuscular Hgb 34.5 pg (27.0-32.0); Mean Corpuscular Volume 94.4 fL (81-99); Mean Platelet Vol. 9.9 fl (6.2-12.0); Monocyte# 0.26 X10^3/uL; Monocyte% 5.4 % (0-10); NRBC Flagged by Analyzer 0.6 % (0-5); Neutrophil # 3.61 X10^3/uL (2.7-7.7); Neutrophil % 74.9 % (47-70); Platelet Count 234 K/mm3 (150-450); RBC Distribution Width CV 11.7 % (11.6-14.6); RBC Distribution Width SD 39.8 fl (35.1-43.9); Red Blood Count 4.12 M/mm3 (4.2-5.4); White Blood Count 4.8 K/mm3 (4.4-11.0)
[2021-06-08 17:26] LABS: ALB/GLOB Ratio 0.8 RATIO (0.9-2.4); AST(SGOT) 64 U/L (15-37); Albumin, Serum 3.4 g/dL (3.2-5.0); Alkaline Phosphatase 106 U/L (45-117); Anion Gap 18 (5-15); BUN 15 mg/dL (7-18); BUN/Creat Ratio 16.1 RATIO (10-20); Chloride 97 mmol/L (98-107); Creatinine, Serum 0.93 mg/dL (0.55-1.02); EST Glomerular Filtration Rate 79 mL/min (>60); Est Glom Filt Rate - Afr Amer 96 mL/min (>60); Estimated Creatinine Clearance 106.05 ml/min; Globulin 4.5 g/dL (2.2-4.2); Glucose 550 mg/dL (74-106); Potassium 4.7 mmol/L (3.5-5.1); Protein, Total 7.9 g/dL (6.4-8.2); Sodium Level 132 mmol/L (136-145)
[2021-06-08] MEDS: 0.9% Normal Saline 1,000 ML 100 ML IV (20:15)
[2021-06-08] MEDS: 0.9% Normal Saline 1,000 ML 999 ML IV (21:00)
--- NOTE | 2021-06-08 21:24 | PCM.HP.STD ---
HPI - General General Date of Admission: 06/08/21 Date of Service: 06/08/21 Chief Complaint: General Illness HPI Narrative SUGEY CHAVEZ, is a 20 F who presented to the emergency department [facility] on 06/08/2021 with a chief complaint of general illness. She reported that for approximately the past 2 days she has had cough, shortness of breath, sinus pressure, nasal drainage, postnasal drip, decreased appetite, myalgias/arthralgias, nausea, vomiting, loose stools, and chills with no fever. She has not been vaccinated for COVID-19. She reported on admission that nothing made it better or worse and states that her cough is dry with no sputum production. Her rapid Covid in the emergency department was positive for COVID-19. Her vital signs are stable and she is not febrile and is satting 97 to 99% on room air at this time. She has no dyspnea and is not tachycardic. Her CBC is overall unremarkable. [facility] CMP shows a hyponatremia but her serum glucose is is greater than 550. Her serum bicarb is 17, her anion gap is 18, her BUN is 15 with a serum creatinine of 0.93. She has mild transaminitis with an AST of 64 but a normal bilirubin. UA shows no sign of infection. Her chest x-ray is unremarkable at this time. She was started on insulin drip and given IV fluids in the emergency department and will be admitted to the intensive care unit. [facility] Medical History Asthma Depression Diabetes Essential hypertension History of migraine Insomnia Left ventricular noncompaction Low back pain Obesity (BMI 30-39.9) Paresthesia Pneumonia (09/09/20) Shortness of breath Home Medications albuterol sulfate 2.5 mg INHALATION Q6H PRN 10/06/20 [History Last Taken Unknown] albuterol sulfate 90 mcg/actuation aerosol inhaler 2 puff INHALATION Q6H PRN 10/06/20 [History Last Taken Unknown] amlodipine 5 mg tablet 5 mg PO DAILY 10/06/20 [History Last Taken Unknown] budesonide-formoterol HFA 160 mcg-4.5 mcg/actuation aerosol inhaler 2 puff INHALATION BID 10/06/20 [History Last Taken Unknown] cetirizine 10 mg tablet 10 mg PO DAILY 10/06/20 [History Last Taken Unknown] fluticasone propionate 50 mcg/actuation nasal spray,suspension 2 spray INTRANASAL DAILY 10/06/20 [History Last Taken Unknown] insulin glargine 100 unit/mL (3 mL) subcutaneous pen 55 unit SC QPM ml 10/06/20 [History Last Taken Unknown] insulin lispro 100 unit/mL subcutaneous pen 15 unit SC TID ml 10/06/20 [History Last Taken Unknown] propranolol 20 mg tablet 20 mg PO BID 10/06/20 [History Last Taken Unknown] sumatriptan succinate 50 mg tablet See Rx Instructions PO .COMPLEX 10/06/20 [History Last Taken Unknown] sertraline 50 mg PO DAILY 02/15/21 [History Last Taken Unknown] azelastine 2 spray INTRANASAL BID #30 ml 05/16/21 [Rx Last Taken Unknown] lorazepam 1 mg PO 4X/DAY PRN PRN 05/16/21 [History Last Taken Unknown] cholecalciferol (vitamin D3) 1,250 mcg (50,000 unit) capsule 1,250 mcg PO QWEEK #12 cap 05/21/21 [Rx Last Taken Unknown] Allergy/AdvReac Type Severity Reaction Status Date / Time amoxicillin Allergy Unknown unknown Verified 06/08/21 14:18 azithromycin Allergy Unknown unknown Verified 06/08/21 14:18 [From Zithromax Z-Clyde] Penicillins Allergy Unknown unknown Verified 06/08/21 14:18 Family History Father Suicide Surgical History History of myringotomy History of tonsillectomy and adenoidectomy Social History Smoking Status: Former smoker alcohol intake: current alcohol intake frequency: a few times a month Alcohol type: hard liquor substance use type: does not use caffeine: No ROS Constitutional Constitutional: Reports chills, fatigue, malaise and weakness; Denies anorexia, change in weight, fever(s), night sweats or other Eyes Eyes: Denies blurry vision, change in eye color, change in vision, discharge from eye(s), double vision, erythema, eye pain, loss of vision or other ENT HEENT: Reports headache(s), nasal congestion, nasal discharge, post nasal drip and sinus pressure; Denies abnormal hearing, dysphagia, ear pain, epistaxis, hearing loss, sore throat or other Cardiovascular Cardiovascular: Denies chest pain, claudication, dyspnea on exertion, edema, lightheadedness, orthopnea, palpitations, paroxysmal nocturnal dyspnea, rapid heart rate, syncope or other Respiratory/Chest Respiratory/Chest: Reports cough and shortness of breath with exertion; Denies dyspnea, excessive phlegm production, hemoptysis, productive cough, shortness of breath at rest, wheezing or other Gastrointestinal Gastrointestinal: Reports loose stools, nausea and vomiting Genitourinary Genitourinary: Denies burning urination, difficulty urinating, dysuria, hematuria, nocturia, urinary frequency, urinary hesitancy, urinary incontinence, urinary urgency or other Musculoskeletal Musculoskeletal: Reports arthralgias and myalgias; Denies back pain, joint pain, joint stiffness, joint swelling, neck pain or other Neurologic Neurologic: Denies abnormal gait, abnormal speech, confusion, disequilibrium, dizziness, focal weakness, headache(s), numbness, paresthesias, seizure-like activity, seizures, syncope, tingling, tremor(s) or other Psychiatric Psychiatric: Denies anxiety, depression, homicidal ideation, suicidal ideation or other Endocrine Endocrinology: Reports polydipsia and polyuria; Denies change in body appearance, cold intolerance, excessive sweating, heat intolerance or other Hematologic/Lymphatic Hematologic/Lymphatic: Denies anemia, easy bleeding, easy bruising, lymphadenopathy or other Allergic/Immunologic Allergic/Immunologic: Denies rhinitis, hives, eczemia, asthma or other Vital Signs Vital Signs Vital Signs: 06/08/21 14:16 06/08/21 17:44 06/08/21 19:34 Temperature 99 F Temperature Source Oral Pulse Rate 92 88 Respiratory Rate 16 16 Blood Pressure 124/94 H 139/74 H Blood Pressure Mean 104 95 Pulse Ox 97 98 99 Oxygen Delivery Method Room Air Room Air Room Air 06/08/21 20:26 06/08/21 21:05 Temperature 98.1 F Temperature Source Oral Pulse Rate 87 76 Respiratory Rate 16 Blood Pressure 139/91 H Blood Pressure Mean 107 Pulse Ox 97 Oxygen Delivery Method Room Air Weight Weight: 107.501 kg Body Mass Index (BMI) 33.0 Physical Exam Const alert, oriented x3 and no apparent distress Constitutional Narrative: Obese -[place] female sitting up in a chair at the bedside in the emergency department, overall appears nontoxic, pleasant General Appearance: cooperative HEENT normocephalic, head/scalp atraumatic, hearing grossly normal bilaterally and moist oral mucous membranes HEENT Narrative: Mallampati 3, no thrush, nasal congestion noted with erythema around her nares Eyes PERRL, EOMs intact bilaterally and conjunctivae normal Neck no lymphadenopathy, supple and no JVD Neck Narrative: Trachea midline, no thyroid enlargement Resp normal respiratory effort, no retractions, no use of accessory muscles and clear to auscultation bilaterally Auscultation: Negative for crackles, rales, rhonchi or wheezes Cardio regular rate, regular rhythm, S1 normal heart sound, S2 normal heart sound, no murmurs, no rub, no gallops, no clicks and no JVD GI normal to inspection, nondistended, normoactive bowel sounds, soft to palpation, non-tender and non-distended Extremity normal to inspection and no clubbing, cyanosis or edema Peripheral Pulses: Yes pulses 2+ throughout Skin no rashes or lesions noted, no wounds, skin turgor normal, no jaundice, no petechiae and no mottling Neuro oriented x3, CN's II-XII intact bilaterally, moves all extremities and no focal motor deficits Sensorium / Orientation: awake, alert, oriented to person, oriented to place and oriented to time Speech: speech normal Motor Exam: strength 5/5 throughout Psych affect normal Results Lab / Micro Data Attestation: I reviewed the patient's lab results. Result Diagrams: 06/08/21 15:24 06/08/21 15:24 Labs: Laboratory Results - last 24 hr 06/08/21 15:20: Urine Color Yellow, Urine Clarity Sl. Cloudy, Urine pH 6.5, Ur Specific [place] 1.010, Urine Protein Negative, Urine Glucose (UA) 1000 H, Urine Ketones 5 H, Urine Occult Blood Negative, Urine Nitrite Negative, Urine Bilirubin Negative, Urine Urobilinogen Normal, Ur Leukocyte Esterase Negative, Urine RBC 0 SEEN, Urine WBC 0 SEEN, Ur Squamous Epith Cells 0-5 SEEN, Urine Bacteria RARE, Urine Mucus 0 SEEN 06/08/21 15:24: WBC 4.8, RBC 4.12 L, Hgb 14.2, Hct 38.9, MCV 94.4, MCH 34.5 H, MCHC 36.5 H, RDW Std Deviation 39.8, RDW Coeff of [place] 11.7, Plt Count 234, MPV 9.9, Immature Gran % (Auto) 0.200, Neut % (Auto) 74.9 H, Lymph % (Auto) 18.7 L, [place] % (Auto) 5.4, Eos % (Auto) 0.4, Baso % (Auto) 0.4, Absolute Neuts (auto) 3.6, Absolute Lymphs (auto) 0.90, Nucleated RBC % 0.6 06/08/21 15:24: Sodium 132 L, Potassium 4.7, Chloride 97 L, Carbon Dioxide 17.0 L, Anion Gap 18 H, BUN 15, Creatinine 0.93, Estim Creat Clear Calc 106.05, Est GFR (MDRD) Af Amer 96, Est GFR (MDRD) Non-Af 79, BUN/Creatinine Ratio 16.1, Glucose 550 H*, Calcium 9.0, Total Bilirubin 0.30, AST 64 H, ALT TNP, Alkaline Phosphatase 106, Total Protein 7.9, Albumin 3.4, Globulin 4.5 H, Albumin/Globulin Ratio 0.8 L 06/08/21 17:40: Acetone Level SMALL H Micro: Microbiology 06/08/21 15:20 Nasal Secretion SARS-CoV-2 Antigen (Rapid) - Final SARS-CoV-2 (COVID 19) Radiology Impression Chest X-Ray 06/08/21 15:45 IMPRESSION: Normal x-ray examination of the chest. Electronically Signed: Kaden Yoder MD at 16:02 EDT Tel , Service support , Assessment & Plan Assessment/Plan (1) DKA (diabetic ketoacidoses): (2) COVID-19: (3) Pseudohyponatremia: (4) Increased anion gap metabolic acidosis: PLAN: Mild DKA -Serum acetone is positive, serum bicarbonate is slightly low at 17 and anion gap is high at 18 -Consistent with mild DKA -Start IV fluids -Start insulin drip -Check every 4 hour BMPs -Once gap is closed and bicarb is normalized we will convert to subcu insulin -Check hemoglobin A1c -N.p.o. until transitioned off insulin drip -Recommend close follow-up with endocrinology as an outpatient COVID-19 infection -Patient currently symptomatic with nausea, vomiting, diarrhea, congestion, postnasal drip, shortness of breath, cough, myalgias, fatigue -No hypoxia at this time and oxygen saturation is 97 to 99% on room air -No fevers -Supportive care at this time -If patient remains on room air she would qualify for monoclonal antibodies at discharge -I did discuss this initially in the emergency department and her mother indicated that they did not want that -I did recommend she have them and I told him it was their decision whether or not she get them or not and told him that we could make a referral if she changed her mind Anion gap metabolic acidosis -Secondary to DKA -Should resolve with treatment of her hyperglycemia -Every 4-hour BMPs until resolved DM-/2 -Patient reports that she was initially diagnosed as a type II diabetic but recent lab work has indicated she is more of a type I -She is due for more lab work soon per her report -It appears she had a recent visit with the RESORT DESK CLERK on 05/20/2021 for her diabetes and per these documents she was to increase her Lantus to 60 units at at bedtime and utilize a sliding scale since she is not eating meals regularly -Sliding scale is as follows-->humalog with sliding scale every 3 hours: 180-220+3; 221-260+5; 261-300+7; 301-340+9; >340+11 -Insulin pump has been discussed with the patient in the past but she was not ready to pursue this at that time -Check hemoglobin A1c -We will start subcutaneous insulin once patient's DKA resolves Pseudohyponatremia -Secondary to markedly elevated blood glucose level -Anticipate resolution with improved blood sugars Asthma -Continue home medication Hypertension -Continue home medication -Would consider the initiation of an MILDRED inhibitor at home if patient tolerates given her diabetes History of migraines -Hold sumatriptan Depression/anxiety -Continue sertraline -Continue home as needed Ativan Obesity -Recommend weight loss -Complicates treatment, prognosis, outcomes DVT prophylaxis -Subcu Lovenox CODE STATUS -Full code Charges/Coding Visit Charges Inpatient E&M: 05347 Init Hosp L3
[2021-06-08 21:44] LABS: Internal QC Validated? YES +Cl - CLEAR BKGD; Pregnancy, Urine Negative Negative
[2021-06-08 22:40] LABS: Bedside Glucose 223 mg/dL (70-110)
[2021-06-08 22:40] LABS: Bedside Glucose 251 mg/dL (70-110)
[2021-06-08] MEDS: Morphine 2 MG/ML Syringe IV (22:58)
[2021-06-08] MEDS: Propranolol 10 MG Tablet 20 MG PO (22:59)
[2021-06-08] MEDS: 0.9% Saline Lock 10 ML Syringe IV (22:59)
[2021-06-08] MEDS: Enoxaparin 40 MG/0.4 ML Syringe SC (22:59)
[2021-06-08] MEDS: Dext 5%-0.45% NS 1,000 ML 250 ML IV (23:04)
[2021-06-08 23:25] LABS: Bedside Glucose 275 mg/dL (70-110)
[2021-06-09] VITALS (22 sets, daily range): BP systolic 100–155; BP diastolic 45–109; PULSE 57–89; RESP 11–36; TEMP 35.7–36.6; O2SAT 86–100
[2021-06-09] MEDS: Acetaminophen 325 MG Tablet 650 MG PO ×2 (00:16→10:20)
[2021-06-09 00:18] LABS: Anion Gap 10 (5-15); BUN 10 mg/dL (7-18); BUN/Creat Ratio 16.9 RATIO (10-20); Calcium,Total 8.5 mg/dL (8.5-10.1); Chloride 104 mmol/L (98-107); Creatinine, Serum 0.59 mg/dL (0.55-1.02); EST Glomerular Filtration Rate 135 mL/min (>60); Est Glom Filt Rate - Afr Amer 163 mL/min (>60); Estimated Creatinine Clearance 167.17 ml/min; Glucose 222 mg/dL (74-106); Potassium 4.6 mmol/L (3.5-5.1); Sodium Level 137 mmol/L (136-145)
[2021-06-09] MEDS: Albuterol 2.5 MG/3 ML VIAL.NEB. INHALATION ×3 (00:35→14:24)
[2021-06-09 00:56] LABS: Bedside Glucose 190 mg/dL (70-110)
[2021-06-09 00:56] LABS: Bedside Glucose 204 mg/dL (70-110)
--- NOTE | 2021-06-09 02:00 | EKG12_ITS ---
Test Reason : CHEST PAIN Blood Pressure : / mmHG Vent. Rate : 062 BPM Atrial Rate : 062 BPM P-R Int : 186 ms QRS Dur : 108 ms QT Int : 430 ms P-R-T Axes : 043 048 036 degrees QTc Int : 436 ms Sinus rhythm with sinus arrhythmia with Fusion complexes Nonspecific T wave abnormality Abnormal ECG No previous ECGs available Confirmed by CAMERON LU, EDVIN ([id number]), publication editor ROB HATCH ([id number]) on 06/15/2021 10:12:45 AM Referred By: SASHA Confirmed By:EDVIN BARNES MD
[2021-06-09 02:11] LABS: Bedside Glucose 201 mg/dL (70-110)
[2021-06-09 02:41] LABS: Bedside Glucose 241 mg/dL (70-110)
[2021-06-09] MEDS: Morphine 2 MG/ML Syringe IV ×2 (02:52→10:20)
[2021-06-09] MEDS: Ondansetron 4 MG/2 ML Vial IV (02:52)
[2021-06-09] MEDS: 0.9% Saline Lock 10 ML Syringe IV (02:59)
[2021-06-09 03:15] LABS: D-Dimer Quantitative (DVT/PE) 0.37 FEU/ug/m (0.27-0.49)
[2021-06-09 03:20] LABS: Bedside Glucose 186 mg/dL (70-110)
[2021-06-09 03:32] LABS: Anion Gap 7 (5-15); BUN 11 mg/dL (7-18); Calcium,Total 8.4 mg/dL (8.5-10.1); Chloride 103 mmol/L (98-107); Creatinine, Serum 0.65 mg/dL (0.55-1.02); EST Glomerular Filtration Rate 122 mL/min (>60); Est Glom Filt Rate - Afr Amer 147 mL/min (>60); Estimated Creatinine Clearance 151.74 ml/min; Glucose 189 mg/dL (74-106); Potassium 3.6 mmol/L (3.5-5.1); Sodium Level 138 mmol/L (136-145)
[2021-06-09 03:36] LABS: Troponin-I HS 5 pg/mL (3.0-54.0)
[2021-06-09 04:56] LABS: Absolute Lymphocyte Count 2.21 X10^3/uL (0.83-4.51); Absolute Neutrophil Count 2.1 X10^3/uL (2.0-7.7); Basophil# 0.01 X10^3/uL; Basophil% 0.2 % (0-1); Eosinophil# 0.04 X10^3/uL; Eosinophils% 0.9 % (0-5); Hematocrit 37.6 % (37-47); Hemoglobin 13.3 g/dL (12.0-15.0); Lymphocyte # 2.21 X10^3/ul (0.83-4.51); Mean Corp Hgb Conc 35.4 g/dL (32-36); Mean Corpuscular Hgb 34.2 pg (27.0-32.0); Mean Corpuscular Volume 96.7 fL (81-99); Mean Platelet Vol. 9.2 fl (6.2-12.0); Monocyte# 0.21 X10^3/uL; Monocyte% 4.6 % (0-10); NRBC Flagged by Analyzer 0 % (0-5); Neutrophil # 2.12 X10^3/uL (2.7-7.7); Neutrophil % 46.1 % (47-70); Platelet Count 227 K/mm3 (150-450); RBC Distribution Width CV 11.6 % (11.6-14.6); RBC Distribution Width SD 40.5 fl (35.1-43.9); Red Blood Count 3.89 M/mm3 (4.2-5.4); White Blood Count 4.6 K/mm3 (4.4-11.0)
[2021-06-09 05:25] LABS: Anion Gap 7 (5-15); BUN 11 mg/dL (7-18); BUN/Creat Ratio 16.9 RATIO (10-20); Calcium,Total 8.3 mg/dL (8.5-10.1); Chloride 105 mmol/L (98-107); Creatinine, Serum 0.65 mg/dL (0.55-1.02); EST Glomerular Filtration Rate 120 mL/min (>60); Est Glom Filt Rate - Afr Amer 146 mL/min (>60); Estimated Creatinine Clearance 151.74 ml/min; Glucose 190 mg/dL (74-106); Magnesium 1.9 mg/dL (1.6-2.6); Phosphorus 3.9 mg/dL (2.5-4.9); Potassium 3.6 mmol/L (3.5-5.1); Sodium Level 140 mmol/L (136-145)
[2021-06-09 05:35] LABS: Troponin-I HS 6 pg/mL (3.0-54.0)
[2021-06-09] MEDS: Insulin NPH Human 100 UNITS/ML PEN 30 UNITS SC (05:47)
[2021-06-09] MEDS: Budesonide Respules 0.5 MG/2 ML AMPUL.NEB. INHALATION (06:52)
[2021-06-09 08:20] LABS: Bedside Glucose 165 mg/dL (70-110)
[2021-06-09 08:20] LABS: Bedside Glucose 164 mg/dL (70-110)
[2021-06-09 08:20] LABS: Bedside Glucose 176 mg/dL (70-110)
[2021-06-09 09:33] LABS: Troponin-I HS 6 pg/mL (3.0-54.0)
[2021-06-09] MEDS: Loratadine 10 MG Tablet PO (10:09)
[2021-06-09] MEDS: Sertraline 50 MG Tablet PO (10:09)
[2021-06-09] MEDS: Enoxaparin 40 MG/0.4 ML Syringe SC (10:09)
[2021-06-09] MEDS: Propranolol 10 MG Tablet 20 MG PO (10:09)
[2021-06-09] MEDS: Insulin Lispro 100 UNIT/ML INSULN.PEN SC ×3 (10:10→16:59)
[2021-06-09] MEDS: LORazepam 1 MG Tablet PO (10:19)
--- NOTE | 2021-06-09 10:20 | DS.PCM_ITS ---
Providers Date of Admission: 06/08/21 Primary Care Physician: Dr. Jose Sultana MD Reason For Visit: DKA Diagnosis Discharge Diagnosis (1) DKA (diabetic ketoacidoses): Status: Acute Code(s): E11.10 - Type 2 diabetes mellitus with ketoacidosis without coma (2) COVID-19: Status: Acute Code(s): U07.1 - COVID-19 (3) Pseudohyponatremia: Status: Acute Code(s): R79.89 - Other specified abnormal findings of blood chemistry (4) Increased anion gap metabolic acidosis: Status: Acute Code(s): E87.2 - Acidosis Medications at Discharge Home Medications albuterol sulfate 2.5 mg INHALATION Q6H PRN 10/06/20 albuterol sulfate 90 mcg/actuation aerosol inhaler 2 puff INHALATION Q6H PRN 10/06/20 amlodipine 5 mg tablet 5 mg PO DAILY 10/06/20 budesonide-formoterol HFA 160 mcg-4.5 mcg/actuation aerosol inhaler 2 puff INHALATION BID 10/06/20 cetirizine 10 mg tablet 10 mg PO DAILY 10/06/20 fluticasone propionate 50 mcg/actuation nasal spray,suspension 2 spray INTR ANASAL DAILY 10/06/20 insulin glargine 100 unit/mL (3 mL) subcutaneous pen 55 unit SC QPM ml 10/06/20 insulin lispro 100 unit/mL subcutaneous pen 15 unit SC TID ml 10/06/20 propranolol 20 mg tablet 20 mg PO BID 10/06/20 sumatriptan succinate 50 mg tablet See Rx Instructions PO .COMPLEX 10/06/20 sertraline 50 mg PO DAILY 02/15/21 azelastine 2 spray INTRANASAL BID #30 ml 05/16/21 lorazepam 1 mg PO 4X/DAY PRN PRN 05/16/21 cholecalciferol (vitamin D3) 1,250 mcg (50,000 unit) capsule 1,250 mcg PO QWEEK #12 cap 05/21/21 Hospital Course Operations None Procedures None Summary of Care Provided Minutes Spent on Discharge: 35 Hospital Course: Patient is a 20-year-old female with a past medical history of poorly controlled diabetes mellitus was admitted through the ED on 06/08/2021 with a complaint of generalized feeling of unwellness for 2 days prior to admission with associated cough and shortness of breath. Cough was not productive. Patient had not been vaccinated for Covid. On admission, she was found to have markedly elevated blood glucose more than 550 and her serum bicarb was 17 anion gap was 18. Chest x-ray was unremarkable. She was admitted and managed for DKA and started on heparin drip. She was admitted to the ICU. Covid test done was also positive. Anion gap closed and blood sugars trended down so she was transitioned to her home dose of Lantus 55 units nightly. She was transferred out of the ICU. Patient remained asymptomatic from Covid standpoint and remained on room air. Patient was transferred to the regular medical floor on 06/10/2021. Having during the evening of 03/15/2021, patient signed out AGAINST MEDICAL ADVICE. Of note, patient's last A1c in May 2021 was more than 14. Patient was counseled strongly about compliance with her diabetes medications. Patient was seen and examined prior to her signing out AGAINST MEDICAL ADVICE. She felt much better and had no complaints.. Sounds otherwise negative. Labs and vitals were reviewed. Patient was counseled about taking the Covid vaccine once recovered from the acute Covid infection but she adamantly refused. Physical Exam Const alert, oriented x3 and no apparent distress General Appearance: cooperative Exam Limitations: no limitations HEENT normocephalic, head/scalp atraumatic, hearing grossly normal bilaterally and moist oral mucous membranes Eyes PERRL, EOMs intact bilaterally and conjunctivae normal Neck no lymphadenopathy, supple and no JVD Resp normal respiratory effort, no retractions, no use of accessory muscles and clear to auscultation bilaterally Auscultation: Negative for crackles, rales, rhonchi or wheezes Cardio regular rate, regular rhythm, S1 normal heart sound, S2 normal heart sound, no murmurs, no rub, no gallops, no clicks and no JVD GI normal to inspection, nondistended, normoactive bowel sounds, soft to palpation, non-tender and non-distended Extremity normal to inspection, full ROM and no clubbing, cyanosis or edema Skin no rashes or lesions noted, no wounds, skin turgor normal, no jaundice, no petechiae and no mottling Neuro oriented x3, CN's II-XII intact bilaterally, moves all extremities and no focal motor deficits Sensorium / Orientation: awake, alert, oriented to person, oriented to place and oriented to time Speech: speech normal Motor Exam: strength 5/5 throughout Psych affect normal Weight / BMI Weight Weight: 273 lb 5.971 oz Body Mass Index (BMI) 38.0 ABG / Lab / Microbiology Data Result Diagrams: 06/09/21 04:50 06/09/21 04:50 Laboratory: Laboratory Results - last 24 hr 06/09/21 04:50: Hemoglobin A1c 12.7 H 06/09/21 08:51: POC Glucose 210 H 06/09/21 12:22: POC Glucose 278 H 06/09/21 16:55: POC Glucose 430 H 06/09/21 21:58: POC Glucose 267 H Microbiology: Microbiology 06/08/21 15:20 Nasal Secretion SARS-CoV-2 Antigen (Rapid) - Final SARS-CoV-2 (COVID 19) D/C Instructions Discharge Diet: Low fat / Low cholesterol and 1800 Calorie Control Diet Discharge Activity: Return to Normal Activity Call your doctor if you observe: Shortness of breath, Dizziness, Swelling in the ankles, Chest pain and Increased palpitations (irregular heartbeat) Meaningful Use Info Meaningful Use Diagnoses (Choose all that apply): None applicable Discharge Plan Admission Admit Date/Time: 06/08/21 19:53 Primary Reason for Your Visit: DKA, covid 19 infection Attending Provider: Astrid Danielle Primary Care Provider: Jose Sultana Discharge Orders/Prescriptions Prescriptions: No Action albuterol sulfate 2.5 mg /3 mL (0.083 %) solution for nebulization 2.5 mg INHALATION Q6H PRN (Reason: Shortness Of Breath Or Wheezing) RF: 0 albuterol sulfate [ProAir HFA] 90 mcg/actuation HFA aerosol inhaler 2 puff INHALATION Q6H PRN (Reason: Shortness Of Breath Or Wheezing) RF: 0 amlodipine 5 mg tablet 5 mg PO DAILY RF: 0 budesonide-formoterol [Symbicort] 160-4.5 mcg/actuation HFA aerosol inhaler 2 puff INHALATION BID RF: 0 cetirizine 10 mg tablet 10 mg PO DAILY RF: 0 fluticasone propionate [Allergy Relief (fluticasone)] 50 mcg/actuation spray,suspension 2 spray INTRANASAL DAILY RF: 0 insulin glargine 100 unit/mL (3 mL) insulin pen 55 unit SC QPM RF: 0 insulin lispro 100 unit/mL insulin pen 15 unit SC TID RF: 0 propranolol 20 mg tablet 20 mg PO BID RF: 0 sumatriptan succinate 50 mg tablet See Rx Instructions PO .COMPLEX RF: 0 cholecalciferol (vitamin D3) 1,250 mcg (50,000 unit) capsule 1,250 mcg PO QWEEK Qty: 12 RF: 0 sertraline 50 mg tablet 50 mg PO DAILY RF: 0 lorazepam 1 mg tablet 1 mg PO 4X/DAY PRN PRN (Reason: Anxiety) RF: 0 azelastine 137 mcg (0.1 %) aerosol,spray 2 spray intranasal BID Qty: 30 RF: 0 Referrals / Follow Up: Jose Sultana MD [Primary Care Provider] - Disposition Disposition (needs filled in before D/C Order can be placed): Against Medical Advice Charges/Coding Visit Charges Inpatient E&M: 05675 Disch Hosp
--- NOTE | 2021-06-09 10:45 | NS ---
Pt has an active referral for [facility] outpatient [facility] from She Jackson NP. Pt has not scheduled with outpatient team yet. Discussed w/ DM Clinic secretary office clerk Ron Gar will call pt next week to set up appointment once pt is d/c'd from [facility]/out of quarantine. Tristan Diaz MS, RDN, LD
[2021-06-09] MEDS: amLODIPine 5 MG Tablet PO (12:31)
[2021-06-09 12:56] LABS: Bedside Glucose 278 mg/dL (70-110)
--- NOTE | 2021-06-09 13:56 | CASEMGMT ---
RN CM Assessment Patient is Covid positive admitted for DKA, called patient listed cell phone to complete RNCM IA- patient answered and agreeable to complete IA at this time. Introduced role of RN CM to patient. Patient is alert, oriented and able to participate in RN CM Assessment. Care providers, pharmacy, and demographics verified. Admit Dx: DKA (Covid positive in ER) Re-Admit: No Barriers/Issues: Significant other whom patient lives with is also positive for Covid. [facility] gets grocery delivery. PCP: Jose Sultana Specialists: Dee Ross Preferred Pharmacy: [facility] Insurance: [facility] Rx Benefit: Yes LNOK: Gma/RalphJennifer Mag Brett LW/HPOA: None on file Living Arrangements: Lives with significant other Sada in a [facility] apartment with 14 steps ADL?s: Independent with ambulation and ADLs Transportation: Patient drives, significant other will transport upon DC DME: Nebulizer, Glucometer HHC: None SNF: None Goal: Return home and denies any issues, concerns, or questions with DC planning at this time or returning home. Confirmed Glucometer in working condition, has test strips, patient is on insulin and confirmed has insulin needles. Denies any additional needs or concerns with diabetes management. HgbA1C elevated per [facility] high scaler- patient confirmed is working with outpatient to get this down. was diagnosed with diabetes at age 15yo. DC PLAN: Home with no anticipated needs identified at this time. LISS Mendiola
[2021-06-09 15:26] LABS: Bedside Glucose 210 mg/dL (70-110)
--- NOTE | 2021-06-09 16:49 | PN.HOSP_ITS ---
Subjective Subjective Patient seen and examined. She was admitted through the ED on 06/08/2021 with a general feeling of unwellness with associated cough, shortness of breath and nasal discharge as well as nausea and vomiting and loose stools and chills. She did not have any fever. On admission, she tested positive for COVID-19. Her blood glucose was also elevated and bicarb was low at 70 and anion gap was 18. She was admitted and managed for DKA and COVID-19 infection. She had no complaints this morning and felt much better. She denied any chest pain, nausea, vomiting, palpitations or dizziness. Review of symptoms otherwise negative. She has been weaned off of insulin drip and has been transitioned to subcu long acting insulin dose. Objective Data Objective Data Vital Signs: Vital Signs Temp Pulse Resp BP Pulse Ox 97.8 F 67 16 124/73 H 100 06/09/21 16:11 06/09/21 16:11 06/09/21 16:11 06/09/21 16:11 06/09/21 16:11 Oxygen Flow Rate (L/min) 2 Oxygen Delivery Method Nasal Cannula Weight: 273 lb 5.971 oz Body Mass Index (BMI) 38.0 Intake & Output: Intake and Output for Last 24 Hours 06/07/21 06/08/21 06/09/21 23:59 23:59 23:59 Intake Total 1076.67 / 1196.67 740.67 / 740.67 Output Total 350 / 350 Balance 726.67 / 846.67 740.67 / 740.67 Lab / Micro Data Result Diagrams: 06/09/21 04:50 06/09/21 04:50 Labs: Laboratory Results - last 24 hr 06/08/21 15:24: Sodium 132 L, Potassium 4.7, Chloride 97 L, Carbon Dioxide 17.0 L, Anion Gap 18 H, BUN 15, Creatinine 0.93, Estim Creat Clear Calc 106.05, Est GFR (MDRD) Af Amer 96, Est GFR (MDRD) Non-Af 79, BUN/Creatinine Ratio 16.1, Glucose 550 H*, Calcium 9.0, Total Bilirubin 0.30, AST 64 H, ALT TNP, Alkaline Phosphatase 106, Total Protein 7.9, Albumin 3.4, Globulin 4.5 H, [place] min/Globulin Ratio 0.8 L 06/08/21 17:40: Acetone Level SMALL H 06/08/21 20:38: POC Glucose 275 H 06/08/21 21:02: POC Glucose 251 H 06/08/21 21:25: Urine Test Negative 06/08/21 22:00: POC Glucose 223 H 06/08/21 22:10: Sodium Cancelled, Potassium Cancelled, Chloride Cancelled, Carbon Dioxide Cancelled, Anion Gap Cancelled, BUN Cancelled, Creatinine Cancelled, Estim Creat Clear Calc Cancelled, Est GFR (MDRD) Af Amer Cancelled, Est GFR (MDRD) Non-Af Cancelled, BUN/Creatinine Ratio Cancelled, Glucose Cancelled, Calcium Cancelled 06/08/21 23:03: POC Glucose 190 H 06/08/21 23:38: Sodium 137, Potassium 4.6, Chloride 104, Carbon Dioxide 23.0, Anion Gap 10, BUN 10, Creatinine 0.59, Estim Creat Clear Calc 167.17, Est GFR (MDRD) Af Amer 163, Est GFR (MDRD) Non-Af 135, BUN/Creatinine Ratio 16.9, Glucose 222 H, Calcium 8.5 06/09/21 00:07: POC Glucose 204 H 06/09/21 00:54: POC Glucose 201 H 06/09/21 02:00: POC Glucose 241 H 06/09/21 02:50: Sodium 138, Potassium 3.6, Chloride 103, Carbon Dioxide 28.0, Anion Gap 7, BUN 11, Creatinine 0.65, Estim Creat Clear Calc 151.74, Est GFR (MDRD) Af Amer 147, Est GFR (MDRD) Non-Af 122, BUN/Creatinine Ratio 17.0, Glucose 189 H, Calcium 8.4 L 06/09/21 02:50: Troponin I High Sens 5 06/09/21 02:50: D-Dimer Quant (PE/DVT) 0.37 06/09/21 03:01: POC Glucose 186 H 06/09/21 04:07: POC Glucose 164 H 06/09/21 04:50: Sodium 140, Potassium 3.6, Chloride 105, Carbon Dioxide 28.0, Anion Gap 7, BUN 11, Creatinine 0.65, Estim Creat Clear Calc 151.74, Est GFR (M DRD) Af Amer 146, Est GFR (MDRD) Non-Af 120, BUN/Creatinine Ratio 16.9, Glucose 190 H, Calcium 8.3 L, Phosphorus 3.9, Magnesium 1.9 06/09/21 04:50: WBC 4.6, RBC 3.89 L, Hgb 13.3, Hct 37.6, MCV 96.7, MCH 34.2 H, MCHC 35.4, RDW Std Deviation 40.5, RDW Coeff of [place] 11.6, Plt Count 227, MPV 9.2, Immature Gran % (Auto) 0.200, Neut % (Auto) 46.1 L, Lymph % (Auto) 48.0 H, [place] % (Auto) 4.6, Eos % (Auto) 0.9, Baso % (Auto) 0.2, Absolute Neuts (auto) 2.1, Absolute Lymphs (auto) 2.21, Nucleated RBC % 0 06/09/21 04:50: Troponin I High Sens 6 06/09/21 04:55: POC Glucose 165 H 06/09/21 05:50: POC Glucose 176 H 06/09/21 08:51: POC Glucose 210 H 06/09/21 09:05: Troponin I High Sens 6 06/09/21 12:22: POC Glucose 278 H Micro: Microbiology 06/08/21 15:20 Nasal Secretion SARS-CoV-2 Antigen (Rapid) - Final SARS-CoV-2 (COVID 19) Physical Exam Const alert, oriented x3 and no apparent distress Exam Limitations: no limitations HEENT head/scalp atraumatic and moist oral mucous membranes Head and Scalp: normocephalic Eyes PERRL, EOMs intact bilaterally and conjunctivae normal Neck no lymphadenopathy Resp normal respiratory effort, no retractions, no use of accessory muscles and clear to auscultation bilaterally Cardio regular rate, regular rhythm, S1 normal heart sound, S2 normal heart sound and no murmurs GI normal to inspection, nondistended, normoactive bowel sounds, soft to palpation, non-tender and non-distended Extremity normal to inspection, full ROM and no clubbing, cyanosis or edema Peripheral Pulses: Yes pulses 2+ throughout Skin no rashes or lesions noted Neuro oriented x3, CN's II-XII intact bilaterally and moves all extremities Sensorium / Orientation: awake Psych affect normal Assessment & Plan Assessment/Plan (1) DKA (diabetic ketoacidoses): (2) COVID-19: (3) Pseudohyponatremia: (4) Increased anion gap metabolic acidosis: PLAN: #DKA in the setting of poorly controlled diabetes. * resolved. anion gap has closed. * off levophed drip * transitioned to SC lantus 55 units qhs, which is what she takes at home * ISS. Accjarrods ACHS * her last A1C on 05/20/2021 was >14 * patient counseled on compliance with her insulin * to follow up with prison officer upon discharge. * #ANion gap metabolic acidosis * due to DKA * resolved * #COVID 19 infection * currently on room air. feels well * refuses vaccine. Patient also refused to consider monoclonal antibodies if she qualified for it. * #Asthma: breathing treatment with bronchodilators. #History of migraines. on sumatriptan #Depression and anxiety: on sertraline. #Morbid Obesity: complicates acute care, prognosis and expected recovery DVT prophylaxis: lovenox. Charges/Coding Visit Charges Inpatient E&M: 26882 Subs Hosp L2
[2021-06-09 21:56] LABS: Bedside Glucose 430 mg/dL (70-110)
--- NOTE | 2021-06-09 22:10 | NURSING ---
pt tearful. pt had a nosebleed. states she hasn't had a nose bleed since she was 6. pt's hands and arm had blood on them-cleaned up p. pt used a papertowel to squeeze her nose. pt states her family is waiting outside for her and again states she is leaving. pt signed ama papers. pt states that when she was in the ICU she was all alone and she doesn't think people should have to be alone. provided emotional support. pt states she wants to go to [facility] where her aunt works.
--- NOTE | 2021-06-09 22:23 | NURSING ---
2216 Received t/c from Nidhi, resource officer, wanting to know what was going on with this Pt. Nidhi states that Pt's family member is there in the ER wanting her (Sue0 to escort her to Pt's room b/c the nurse will not let the Pt leave. This SN states that Pt is leaving AMA and that YOBANY Colon is currently in the Pt's room about to wheel Pt out in w/c. Nidhi states Pt's family member will meet Pt at main doors. RN aware.
[2021-06-09 22:36] LABS: Hemoglobin A1c 12.7 % (3.8-5.6)
[2021-06-09 23:21] LABS: Bedside Glucose 267 mg/dL (70-110)
== END 2021-06-09 22:15 | disposition left against medical advice (07) | DRG 420 ==
LOC: ED 15:18 → ICU 21:02 → MS3 07-20 11:05
PROVIDERS: Admitting Provider Internal Medicine; Emergency Provider Emergency Medicine; PCP Family Medicine; Visit Provider Student in an Organized Health Care Education/Training Program
DX: E11.10 Type 2 diabetes mellitus with ketoacidosis without coma (principal); U07.1 COVID-19; E66.01 Morbid (severe) obesity due to excess calories; Z68.38 Body mass index [BMI] 38.0-38.9, adult; I10 Essential (primary) hypertension; J45.909 Unspecified asthma, uncomplicated; F41.9 Anxiety disorder, unspecified; F32.9 Major depressive disorder, single episode, unspecified; G43.909 Migraine, unspecified, not intractable, without status migrainosus; Z87.891 Personal history of nicotine dependence; Z79.4 Long term (current) use of insulin; Z79.51 Long term (current) use of inhaled steroids; Z79.899 Other long term (current) drug therapy; Z28.3 Underimmunization status
CPT/HCPCS: 71045; 80048; 80053; 81001; 81025; 82009; 82962; 83036; 83735; 84100; 84484; 85025; 85379; 87426; 93005; 94640; 96361; 96372; 96374; 96375; 96376; 97802; 99218; 99284; J7030; A4216; G0378; J2405; J7799

== ENCOUNTER 2021-06-17 18:22 | Emergency (ER) | payer MEDICAID, SELFPAY ==
[2021-06-17 18:23] VITALS: BP 133/91; PULSE 104; RESP 14; TEMP 36.3; O2SAT 93; BMI 38.5
[2021-06-17 18:56] LABS: Bedside Glucose 390 mg/dL (70-110)
[2021-06-17 19:01] LABS: Bacteria 0 SEEN /hpf (None Seen); Mucous, Urine 0 SEEN /hpf (<or=2+); Red Blood Cells-Urine 0 SEEN /hpf (0-5)
[2021-06-17 19:02] LABS: Color, Urine Yellow (Yellow); Glucose, Dipstick 250 mg/dl (Normal); Ketone-Dipstick 5 mg/dl (Negative); Leukocyte Esterase-Dipstick 100 /ul (Negative); Nitrite-Dipstick Negative (Negative); Occult Blood-Urine Negative /ul (Negative); Protein-Dipstick 15 mg/dl (Negative); Urine Bilirubin Dipstick Negative (Negative); Urine Clarity Sl. Cloudy (Clear); Urine Urobilinogen Normal (Normal)
--- NOTE | 2021-06-17 19:12 | RAD_ITS ---
STUDY: X-RAY CHEST REASON FOR EXAM: Female, 20 years old. Cough. Left-sided jaw pain for 2 days. Bloody nose and coughing up blood for one week. TECHNIQUE: PA and lateral views of the chest. COMPARISON: 06/08/2021. FINDINGS: The lungs are clear and expanded. There is no demonstrated pleural abnormality. Normal size heart. Normal mediastinum and blake. Normal visualized pulmonary arteries. Normal visualized aortic arch and descending thoracic aorta. Normal visualized thoracic spine. Normal visualized ribs, clavicles, and shoulders. There is no demonstrated abnormality of the visualized soft tissue structures of the upper abdomen. RAD/Chest PA and Lateral IMPRESSION: No acute cardiopulmonary disease or major interval change. Electronically Signed: Rudy Sanon DO at 19:33 EDT Tel [phone], Service support ,
[2021-06-17 19:15] LABS: Squamous Epithelial Cells - UA 5-10 SEEN /hpf (5-10); White Blood Cells 0-5 SEEN /hpf (0-5); Yeast-Urine RARE /hpf (None Seen)
--- NOTE | 2021-06-17 20:15 | EDS_ITS ---
HPI History of Present Illness Chief Complaint: General Illness Informant: patient Narrative Narrative: Patient presents with multitude of different complaints. She is complaining of left-sided sinus pressure and jaw pain for the past couple of days. She states that she does have some blood in the mucus when she blows her nose and has intermittently been coughing up mucus with blood streaks for the past week. She denies chest pain. No fever or chills. She also reports yeast infection for the past week. Patient was recently diagnosed with Covid and is currently off quarantine. Patient was recently admitted with DKA. She admits she has not been checking her blood sugars at home. [facility] Medical History Asthma COVID-19 Depression Diabetes Essential hypertension History of migraine Insomnia Left ventricular noncompaction Low back pain Obesity (BMI 30-39.9) Paresthesia Pneumonia (09/09/20) Shortness of breath Home Medications albuterol sulfate 2.5 mg INHALATION Q6H PRN 10/06/20 [History Last Taken Unknown] albuterol sulfate 90 mcg/actuation aerosol inhaler 2 puff INHALATION Q6H PRN 10/06/20 [History Last Taken Unknown] amlodipine 5 mg tablet 5 mg PO DAILY 10/06/20 [History Last Taken Unknown] budesonide-formoterol HFA 160 mcg-4.5 mcg/actuation aerosol inhaler 2 puff INHALATION BID 10/06/20 [History Last Taken Unknown] cetirizine 10 mg tablet 10 mg PO DAILY 10/06/20 [History Last Taken Unknown] fluticasone propionate 50 mcg/actuation nasal spray,suspension 2 spray INTRANASAL DAILY 10/06/20 [History Last Taken Unknown] insulin glargine 100 unit/mL (3 mL) subcutaneous pen 55 unit SC QPM ml 10/06/20 [History Last Taken Unknown] insulin lispro 100 unit/mL subcutaneous pen 15 unit SC TID ml 10/06/20 [History Last Taken Unknown] propranolol 20 mg tablet 20 mg PO BID 10/06/20 [History Last Taken Unknown] sumatriptan succinate 50 mg tablet See Rx Instructions PO .COMPLEX 10/06/20 [History Last Taken Unknown] sertraline 50 mg PO DAILY 02/15/21 [History Last Taken Unknown] azelastine 2 spray INTRANASAL BID #30 ml 09/12/21 [Rx Last Taken Unknown] lorazepam 1 mg PO 4X/DAY PRN PRN 05/16/21 [History Last Taken Unknown] cholecalciferol (vitamin D3) 1,250 mcg (50,000 unit) capsule 1,250 mcg PO QWEEK #12 cap 05/21/21 [Rx Last Taken Unknown] fluconazole 150 mg tablet 150 mg PO Q3D #2 tab 06/15/21 [Rx Last Taken Unknown] doxycycline monohydrate 100 mg PO BID #20 cap 06/17/21 [Rx Last Taken Unknown] fluconazole [Diflucan] 150 mg PO DAILY #1 tab 06/17/21 [Rx Last Taken Unknown] Allergy/AdvReac Type Severity Reaction Status Date / Time amoxicillin Allergy Unknown unknown Verified 06/17/21 18:23 azithromycin Allergy Unknown unknown Verified 06/17/21 18:23 [From Zithromax Z-Clyde] Penicillins Allergy Unknown unknown Verified 06/17/21 18:23 Family History Father Suicide Surgical History History of myringotomy History of tonsillectomy and adenoidectomy Social History Smoking Status: Former smoker alcohol intake: current alcohol intake frequency: a few times a month Alcohol type: hard liquor substance use type: does not use caffeine: No ROS ROS ED Constitutional Constitutional ED: Denies chills or fever(s) Eyes Eyes: Denies change in vision ENT ENT ED: Reports other Details: Sinus pressure ; Denies sore throat Cardiovascular Cardiovascular: Denies chest pain Respiratory/Chest Respiratory/Chest: Reports cough; Denies dyspnea Gastrointestinal Gastrointestinal: Denies abdominal pain, diarrhea, nausea or vomiting Genitourinary Genitourinary ED: Reports other Details: Yeast infection ; Denies dysuria Musculoskeletal Musculoskeletal: Denies back pain Integumentary Denies rash Neurologic Neurologic: Denies headache(s) or weakness Allergic/Immunologic Allergic/Immunologic ED: Denies urticaria EXAM Physical Exam Const Vital Signs: 06/17/21 18:23 06/17/21 18:49 06/17/21 20:34 Temperature 97.3 F L Temperature Source Temporal Pulse Rate 104 H Respiratory Rate 14 14 Respiratory Effort Normal Non-Labored Respiratory Pattern Normal Blood Pressure 133/91 H Blood Pressure Mean 105 Pulse Ox 93 Oxygen Delivery Method Room Air Positive well nourished and well developed General Appearance ED: well developed HEENT Reports normocephalic and head/scalp atraumatic HEENT Narrative: Tenderness to palpation over the left frontal and left max illary sinus. Eyes PERRL and EOMs intact bilaterally Neck supple Chest Wall inspection of chest normal and palpation of chest normal Resp normal respiratory effort and clear to auscultation bilaterally Cardio regular rate and regular rhythm GI normal to inspection, nondistended, normoactive bowel sounds Palpation: soft Back/Spine Negative for no CVA tenderness Extremity normal to inspection Neuro oriented x3 and no sensory deficits noted Sensorium / Orientation: alert Motor Exam: strength 5/5 throughout Psych mental status grossly normal Skin no rashes or lesions noted MDM MDM MDM Narrative Medical decision making narrative: 2 view chest x-ray ordered. Accu-Chek and urinalysis obtained. Lab Data Attestation: I reviewed the patient's lab results. Labs: Laboratory Results - last 24 hr 06/17/21 06/17/21 18:51 18:52 Urine Color Yellow Urine Clarity Sl. Cloudy Urine pH 5.0 Ur Specific [place] 1.020 Urine Protein 15 H Urine Glucose (UA) 250 H Urine Ketones 5 H Urine Occult Blood Negative Urine Nitrite Negative Urine Bilirubin Negative Urine Urobilinogen Normal Ur Leukocyte Esterase 100 H Urine RBC 0 SEEN Urine WBC 0-5 SEEN Ur Squamous Epith Cells 5-10 SEEN Urine Bacteria 0 SEEN Urine Mucus 0 SEEN Urine Yeast RARE POC Glucose 390 H Radiography Diagnostic Testing: Clinical Impression(s) from Imaging Studies Chest X-Ray 06/17/21 19:12 IMPRESSION: No acute cardiopulmonary disease or major interval change. Electronically Signed: Rudy Sanon DO at 19:33 EDT Tel [phone], Service support , Treatment and Re-Evaluation Comments:: Blood sugar is elevated at 390. Patient is advised to closely monitor this at home. Urinalysis shows no sign of infection. She will be given a dose of Diflucan now along with a course of doxycycline to treat her sinus infection. She was written for 1 additional tab of Diflucan to take at the completion of her antibiotic course. Return instructions provided. Discharge Plan Triage Chief Complaint: General Illness ED Provider: Mónica Zhou Dx/Rx/DC Orders Clinical Impression: Sinusitis, Yeast infection Instructions: ED Sinusitis (Antibiotic Treatment), ED JUAN VAGINITIS Prescriptions: New fluconazole [Diflucan] 150 mg tablet 150 mg PO DAILY Qty: 1 RF: 0 doxycycline monohydrate 100 MG capsule 100 mg PO BID Qty: 20 RF: 0 No Action albuterol sulfate 2.5 mg /3 mL (0.083 %) solution for nebulization 2.5 mg INHALATION Q6H PRN (Reason: Shortness Of Breath Or Wheezing) RF: 0 albuterol sulfate [ProAir HFA] 90 mcg/actuation HFA aerosol inhaler 2 puff INHALATION Q6H PRN (Reason: Shortness Of Breath Or Wheezing) RF: 0 amlodipine 5 mg tablet 5 mg PO DAILY RF: 0 budesonide-formoterol [Symbicort] 160-4.5 mcg/actuation HFA aerosol inhaler 2 puff INHALATION BID RF: 0 cetirizine 10 mg tablet 10 mg PO DAILY RF: 0 fluticasone propionate [Allergy Relief (fluticasone)] 50 mcg/actuation spray,suspension 2 spray INTRANASAL DAILY RF: 0 insulin glargine 100 unit/mL (3 mL) insulin pen 55 unit SC QPM RF: 0 insulin lispro 100 unit/mL insulin pen 15 unit SC TID RF: 0 propranolol 20 mg tablet 20 mg PO BID RF: 0 sumatriptan succinate 50 mg tablet See Rx Instructions PO .COMPLEX RF: 0 cholecalciferol (vitamin D3) 1,250 mcg (50,000 unit) capsule 1,250 mcg PO QWEEK Qty: 12 RF: 0 sertraline 50 mg tablet 50 mg PO DAILY RF: 0 lorazepam 1 mg tablet 1 mg PO 4X/DAY PRN PRN (Reason: Anxiety) RF: 0 azelastine 137 mcg (0.1 %) aerosol,spray 2 spray intranasal BID Qty: 30 RF: 0 fluconazole [Diflucan] 150 mg tablet 150 mg PO Q3D Qty: 2 RF: 0 Primary Care Provider: Jose Sultana Referrals: Jose Sultana MD [Primary Care Provider] - 1 Week if not improving Disposition Disposition: Home, Self Care Discharge Date/Time: 06/17/21 21:31
[2021-06-17 20:34] VITALS: RESP 14
[2021-06-17] MEDS: Fluconazole 100 MG Tablet 200 MG PO (20:39)
[2021-06-17] MEDS: Doxycycline 100 MG CAPSULE PO (20:39)
[2021-06-17] MEDS: Acetaminophen 500 MG Tablet 1000 MG PO (21:01)
== END 2021-06-17 21:31 | disposition home or self-care (01) ==
PROVIDERS: Emergency Provider Emergency Medicine; PCP Family Medicine
DX: J32.1 Chronic frontal sinusitis (principal); J32.0 Chronic maxillary sinusitis; B37.9 Candidiasis, unspecified; J45.909 Unspecified asthma, uncomplicated; F32.A Depression, unspecified; E11.9 Type 2 diabetes mellitus without complications; I10 Essential (primary) hypertension; E66.9 Obesity, unspecified; Z79.51 Long term (current) use of inhaled steroids; Z79.4 Long term (current) use of insulin; Z79.899 Other long term (current) drug therapy; Z79.891 Long term (current) use of opiate analgesic
CPT/HCPCS: 71046; 81001; 82962; 99283

== ENCOUNTER → 2021-07-21 | Outpatient (CLI) | payer MEDICAID, SELFPAY ==
[2021-07-21 13:10] LABS: Microalbumin,Random Urine 25.1 mg/L (NO RANGE EST.); Microalbumin:Creatinine Ratio 15.9 mg/g CRE (<30 mg/g CRE)
== END | disposition home or self-care (01) ==
LOC: LABSPEC 10:46
PROVIDERS: PCP Family Medicine; Referring Provider Nurse Practitioner Family; Visit Provider Nurse Practitioner Family
DX: E11.65 Type 2 diabetes mellitus with hyperglycemia (principal); Z79.4 Long term (current) use of insulin
CPT/HCPCS: 82043; 82570

== ENCOUNTER 2021-11-17 15:05 | Outpatient (CLI) | payer MEDICAID, SELFPAY ==
[2021-11-17 17:34] LABS: Amphetamine Urine VISTA NEGATIVE (<1000 ng/mL); Barbiturate Urine VISTA NEGATIVE (< 200 ng/mL); Benzodiazepine Urine VISTA NEGATIVE (< 200 ng/mL); Cocaine Urine VISTA NEGATIVE (< 300 ng/mL); Ecstacy Urine VISTA NEGATIVE (< 500 ng/mL); Methadone Urine VISTA NEGATIVE (< 300 ng/mL); PCP Urine VISTA NEGATIVE (< 25 ng/mL); THC Urine VISTA POSITIVE (< 50 ng/mL); Vista UDS pH Range 5
== END 2021-11-17 23:59 | disposition home or self-care (01) ==
LOC: LABSPEC 15:06
PROVIDERS: PCP Internal Medicine; Visit Provider Nurse Practitioner Family
DX: Z79.899 Other long term (current) drug therapy (principal)
CPT/HCPCS: 80307

== ENCOUNTER 2021-12-08 17:12 | Emergency (ER) | payer MEDICAID, SELFPAY ==
[2021-12-08 17:13] VITALS: BP 144/122; PULSE 76; RESP 15; TEMP 35.9; O2SAT 98; BMI 40.0
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
[2021-12-08] MEDS: Diphth,Pertuss(Acell),Tet Vac 0.5 ML Vial IM (18:31)
[2021-12-08] MEDS: Lidocaine 1% /Epi 1:100 (20ml) 20 ML Vial INFILT (18:32)
== END 2021-12-08 19:51 | disposition home or self-care (01) ==
PROVIDERS: Emergency Provider Emergency Medicine; PCP Internal Medicine; Visit Provider Emergency Medicine
DX: S21.112A Laceration without foreign body of left front wall of thorax without penetration into thoracic cavity, initial encounter (principal); Z68.41 Body mass index [BMI] 40.0-44.9, adult; E11.9 Type 2 diabetes mellitus without complications; Z79.4 Long term (current) use of insulin; I10 Essential (primary) hypertension; Z87.891 Personal history of nicotine dependence; E78.00 Pure hypercholesterolemia, unspecified; W26.8XXA Contact with other sharp object(s), not elsewhere classified, initial encounter; Y93.89 Activity, other specified; Y99.9 Unspecified external cause status; Y92.9 Unspecified place or not applicable; Z23 Encounter for immunization; E66.9 Obesity, unspecified; F32.A Depression, unspecified; Z86.16 Personal history of COVID-19; F41.0 Panic disorder [episodic paroxysmal anxiety]; Z79.899 Other long term (current) drug therapy
CPT/HCPCS: 12001; 90715; 99282

== ENCOUNTER → 2022-06-15 | Outpatient (CLI) | payer MEDICAID, SELFPAY ==
[2022-06-15 12:25] LABS: Absolute Lymphocyte Count 3.02 X10^3/uL (0.83-4.51); Absolute Neutrophil Count 6.7 X10^3/uL (2.0-7.7); Basophil# 0.03 X10^3/uL; Basophil% 0.3 % (0-1); Eosinophil# 0.09 X10^3/uL; Eosinophils% 0.9 % (0-5); Hematocrit 42.2 % (37-47); Hemoglobin 14.3 g/dL (12.0-15.0); Lymphocyte # 3.02 X10^3/ul (0.83-4.51); Lymphocyte % 29.7 % (19-41); Mean Corp Hgb Conc 33.9 g/dL (32-36); Mean Corpuscular Hgb 33.4 pg (27.0-32.0); Mean Corpuscular Volume 98.6 fL (81-99); Monocyte# 0.35 X10^3/uL; Monocyte% 3.4 % (0-10); NRBC Flagged by Analyzer 0 % (0-5); Neutrophil # 6.65 X10^3/uL (2.7-7.7); Neutrophil % 65.3 % (47-70); Platelet Count 319 K/mm3 (150-450); RBC Distribution Width CV 11.9 % (11.6-14.6); RBC Distribution Width SD 42.6 fl (35.1-43.9); Red Blood Count 4.28 M/mm3 (4.2-5.4); White Blood Count 10.2 K/mm3 (4.4-11.0)
[2022-06-15 12:38] LABS: AST(SGOT) 16 U/L (15-37); Alanine Aminotransfer ALT/SGPT 31 U/L (13-56); Albumin, Serum 3.8 g/dL (3.2-5.0); Alkaline Phosphatase 58 U/L (45-117); Anion Gap 5 (5-15); BUN 14 mg/dL (7-18); BUN/Creat Ratio 15.2 RATIO (10-20); Calcium,Total 9.4 mg/dL (8.5-10.1); Chloride 108 mmol/L (98-107); Cholesterol 183 mg/dL (200); Creatinine, Serum 0.92 mg/dL (0.55-1.02); EST Glomerular Filtration Rate 80 mL/min (>60); Est Glom Filt Rate - Afr Amer 97 mL/min (>60); Globulin 3.9 g/dL (2.2-4.2); Glucose 130 mg/dL (74-106); High Density Lipoprotein 38 mg/dL; Potassium 3.9 mmol/L (3.5-5.1); Protein, Total 7.7 g/dL (6.4-8.2); Sodium Level 140 mmol/L (136-145); Thyroid Stim Hormone (TSH) 1.66 uIU/mL (0.358-3.74); Triglycerides 100 mg/dL; Very Low Density Lipoprotein 20 mg/dL (5-40)
[2022-06-15 13:07] LABS: Hemoglobin A1c 6.1 % (3.8-5.6)
== END | disposition home or self-care (01) ==
LOC: BIMLAB 10:42
PROVIDERS: PCP Internal Medicine; Referring Provider Nurse Practitioner Family; Visit Provider Nurse Practitioner Family
DX: I10 Essential (primary) hypertension (principal); E11.9 Type 2 diabetes mellitus without complications; E01.0 Iodine-deficiency related diffuse (endemic) goiter; R73.09 Other abnormal glucose
CPT/HCPCS: 36415; 80053; 80061; 83036; 84439; 84443; 85025

== ENCOUNTER 2022-06-25 13:08 | Emergency (ER) | payer MEDICAID, SELFPAY ==
[2022-06-25 13:09] VITALS: BP 163/137; PULSE 86; RESP 16; TEMP 36.4; O2SAT 98; BMI 37.5
--- NOTE | 2022-06-25 13:32 | EX.ED.VIS.UR ---
HPI HPI - URI History of Present Illness Chief Complaint: Cold Sx Narrative Narrative: 20-year-old female presenting with cough, nasal congestion, body aches, chills for 5 days. She states that she has burning in her chest from the coughing. She thinks she may be wheezing and has a history of asthma. She has albuterol at home and has been using this. Patient also states she has a history of diabetes and uses insulin at home to control her blood sugars. Patient not had a fever. She states she has 1 sick contact in her household. She has no nausea or vomiting. ROS ROS ED Constitutional Constitutional ED: Reports chills Eyes Eyes: Denies change in vision or diplopia ENT ENT ED: Reports rhinorrhea and sore throat Cardiovascular Cardiovascular: Denies chest pain or palpitations Respiratory/Chest Respiratory/Chest: Reports cough Gastrointestinal Gastrointestinal: Denies abdominal pain, nausea or vomiting Genitourinary Genitourinary ED: Denies dysuria or hematuria Musculoskeletal Musculoskeletal: Denies arthralgias or back pain Integumentary Denies abscess or Abrasions Neurologic Neurologic: Reports headache(s); Denies paresthesias Psychiatric Psychiatric: Denies anxiety or depression [facility] Medical History Anemia Asthma Chronic back pain Chronic bronchitis COVID-19 Depression Diabetes Essential hypertension Generalized anxiety disorder Generalized anxiety disorder with panic attacks High cholesterol History of migraine Hypersomnia Insomnia Left shoulder pain Left ventricular noncompaction Low back pain Low calcium levels Obesity (BMI 30-39.9) Paresthesia Pneumonia Right knee pain Shortness of breath Thyromegaly Thyromegaly Vision problems Vitamin deficiency Home Medications albuterol sulfate 2.5 mg/3 mL (0.083 %) solution for nebulization 2.5 mg inhalation Q6H PRN Shortness Of Breath Or Wheezing 10/06/20 [History Last Taken Unknown] albuterol sulfate 90 mcg/actuation aerosol inhaler (ProAir HFA) 2 puff inhalation Q6H PRN Shortness Of Breath Or Wheezing 10/06/20 [History Last Taken Unknown] amlodipine 5 mg tablet 5 mg PO DAILY 10/06/20 [History Last Taken Unknown] cetirizine 10 mg tablet 10 mg PO DAILY 10/06/20 [History Last Taken Unknown] fluticasone propionate 50 mcg/actuation nasal spray,suspension (Allergy Relief (fluticasone)) 2 spray intranasal DAILY 10/06/20 [History Last Taken Unknown] propranolol 20 mg tablet 20 mg PO BID 10/06/20 [History Last Taken Unknown] sumatriptan succinate 50 mg tablet See Rx Instructions PO .COMPLEX 10/06/20 [History Last Taken Unknown] azelastine 137 mcg (0.1 %) nasal spray aerosol 2 spray intranasal BID #30 mL 05/16/21 [Rx Last Taken Unknown] cholecalciferol (vitamin D3) 50 mcg (2,000 unit) capsule 50 mcg PO DAILY #90 caps 07/21/21 [Rx Last Taken Unknown] cyclobenzaprine 10 mg tablet 10 mg PO BID #60 tabs 09/02/21 [Rx Last Taken Unknown] lorazepam 1 mg tablet 1 mg PO 4X/DAY PRN PRN Anxiety #100 tabs 09/02/21 [Rx Last Taken Unknown] meloxicam 15 mg tablet 15 mg PO DAILY PRN Knee Pain #60 tabs 09/02/21 [Rx Last Taken Unknown] sertraline 100 mg tablet 100 mg PO DAILY #90 tabs 01/19/22 [Rx Last Taken Unknown] blood sugar diagnostic (FreeStyle Test strips) #50 ea 06/07/22 [Rx Last Taken Unknown] blood-glucose meter (FreeStyle System Kit) #1 ea 06/07/22 [Rx Last Taken Unknown] buspirone 10 mg tablet 10 mg PO TID #270 tabs 06/07/22 [Rx Last Taken Unknown] lancets 28 gauge (FreeStyle Lancets) #50 ea 06/07/22 [Rx Last Taken Unknown] albuterol sulfate 90 mcg/actuation breath activated powder inhaler 2 inh inhalation Q6H PRN shortness of breath #1 ea 06/25/22 [Rx Last Taken Unknown] prednisone 10 mg tablet 40 mg PO DAILY 4 days #16 tabs 06/25/22 [Rx Last Taken Unknown] Allergy/AdvReac Type Severity Reaction Status Date / Time amoxicillin Allergy Unknown unknown Verified 06/25/22 13:09 azithromycin Allergy Unknown unknown Verified 06/25/22 13:09 [From Zithromax Z-Clyde] Penicillins Allergy Unknown unknown Verified 06/25/22 13:09 Family History Father Suicide Grandfather Diabetes Grandmother Hypertension Aunt Hypertension Other Anxiety Arthritis Asthma Depression Osteoporosis Respiratory disease Severe allergy Surgical History History of myringotomy History of nasal cauterization History of tonsillectomy and adenoidectomy Social History Smoking Status: Former smoker Tobacco: How many years used: 4 how long ago did patient quit smokin09/04/2020 alcohol intake: current alcohol intake frequency: a few times a month Alcohol type: hard liquor substance use type: does not use caffeine: No what type of physical activity do you participate in: walking frequency: daily additional social history: DOES NOT TAKE ASPIRIN DOES TAKE IBUPROFEN NEEDED EXAM Physical Exam Const Vital Signs: 06/25/22 13:09 06/25/22 13:53 06/25/22 13:45 Temperature 97.5 F L Temperature Source Temporal Pulse Rate 86 89 Respiratory Rate 16 16 Respiratory Effort Normal Non-Labored Respiratory Depth Normal Respiratory Pattern Normal Normal Blood Pressure 163/137 H Blood Pressure Mean 145 Pulse Ox 98 Oxygen Delivery Method Room Air Room Air Positive well nourished General Appearance ED: NAD; Negative for pallor HEENT Reports moist mucous membranes normocephalic and atraumatic Throat: posterior oropharynx normal Eyes PERRL and EOMs intact bilaterally General Eye ED: Negative for pale conjunctiva or scleral icterus Neck no lymphadenopathy General: anterior neck swelling Resp normal respiratory effort Auscultation: wheezes scattered wheezes Cardio Rate: regular rate GI Negative for non-tender, non-distended or no masses Extremity normal to inspection Neuro oriented x3 and CN's II-XII intact bilaterally Sensorium / Orientation: alert Motor Exam: strength 5/5 throughout Psych mental status grossly normal Skin General Skin Exam: Negative for jaundice or pallor MDM MDM MDM Narrative Medical decision making narrative: Patient presenting with viral symptoms. On examination she has some mild wheezing. She is given prednisone and breathing treatments. She feels improved after this. I obtained a chest x-ray which on my interpretation shows no acute cardiopulmonary process. The radiologist interprets this and agrees. Patient states that she does have a history of diabetes and is well controlled. Her A1c has come down to 5.4. She does not currently take insulin anymore although she states she has in the past. She does understand that if she has a prednisone burst she should watch her blood sugars and treat them accordingly. She is to follow-up with her PCP to ensure resolution. I did not test her for COVID, influenza or other viral sources today because he is already at 5 days of symptoms. She understands this. I will discharge her home in stable condition. Impression: 1. ED asthma 2. URI Lab Data Attestation: I reviewed the patient's lab results. Radiography Diagnostic Testing: Clinical Impression(s) from Imaging Studies Chest X-Ray 06/25/22 13:34 IMPRESSION: Normal x-ray examination of the chest. Electronically Signed: Anil Laboy MD at 13:52 EDT , Discharge Plan Triage Chief Complaint: Cold Sx ED Provider: Judah Michelle Dx/Rx/DC Orders Instructions: ED Asthma, Acute (Adult), ED Bronchitis, No Antibiotic (Adult) Prescriptions: New prednisone 10 mg tablet 40 mg PO DAILY 4 Days Qty: 16 0RF albuterol sulfate 90 mcg/actuation aerosol powdr breath activated 2 inh inhalation Q6H PRN (Reason: shortness of breath) Qty: 1 0RF No Action albuterol sulfate 2.5 mg /3 mL (0.083 %) solution for nebulization 2.5 mg INHALATION Q6H PRN (Reason: Shortness Of Breath Or Wheezing) albuterol sulfate [ProAir HFA] 90 mcg/actuation HFA aerosol inhaler 2 puff INHALATION Q6H PRN (Reason: Shortness Of Breath Or Wheezing) amlodipine 5 mg tablet 5 mg PO DAILY cetirizine 10 mg tablet 10 mg PO DAILY fluticasone propionate [Allergy Relief (fluticasone)] 50 mcg/actuation spray,suspension 2 spray INTRANASAL DAILY Rx Instructions: administer into each nostril propranolol 20 mg tablet 20 mg PO BID sumatriptan succinate 50 mg tablet See Rx Instructions PO .COMPLEX Rx Instructions: take 1 tab at onset of headache; if no relief may repeat 1 tab after at least 2 hrs; max = 4 tabs/24 hr PO cholecalciferol (vitamin D3) 50 mcg (2,000 unit) capsule 50 mcg PO DAILY Qty: 90 3RF cyclobenzaprine 10 mg tablet 10 mg PO BID Qty: 60 1RF lorazepam 1 mg tablet 1 mg PO 4X/DAY PRN PRN (Reason: Anxiety) Qty: 100 0RF meloxicam 15 mg tablet 15 mg PO DAILY PRN (Reason: Knee Pain) Qty: 60 0RF Rx Instructions: Take daily for 7-10 days then just as needed. (DME) FreeStyle Test Strip See Rx Instructions .ROUTE .MEDSUPPLY Qty: 50 11RF Rx Instructions: check blood glucose daily (DME) blood-glucose meter [FreeStyle System Kit] Kit See Rx Instructions .ROUTE .MEDSUPPLY Qty: 1 0RF Rx Instructions: check blood glucose daily for type 2 DM (DME) lancets [FreeStyle Lancets] 28 gauge misc See Rx Instructions .ROUTE .MEDSUPPLY Qty: 50 11RF Rx Instructions: Check blood glucose daily for type 2 DM buspirone 10 mg tablet 10 mg PO TID Qty: 270 1RF azelastine 137 mcg (0.1 %) aerosol,spray 2 spray intranasal BID Qty: 30 0RF Rx Instructions: administer into each nostril sertraline 100 mg tablet 100 mg PO DAILY Qty: 90 1RF Rx Instructions: Increase to 150 mg in 2 weeks Primary Care Provider: Delma Amos Referrals: Delma Amos MD [Primary Care Provider] - Disposition Disposition: Home, Self Care
--- NOTE | 2022-06-25 13:34 | RAD_ITS ---
STUDY: X-RAY CHEST REASON FOR EXAM: Female, 21 years old. COUGH TECHNIQUE: Single AP portable view of the chest. COMPARISON: 06/17/2021 FINDINGS: The lungs are clear and expanded. There is no demonstrated pleural abnormality. Normal size heart. Normal mediastinum and blake. Normal visualized pulmonary arteries. Normal visualized aortic arch and descending thoracic aorta. Normal visualized thoracic spine. Normal visualized ribs, clavicles, and shoulders. There is no demonstrated abnormality of the visualized soft tissue structures of the upper abdomen. RAD/Chest 1 View (Portable) IMPRESSION: Normal x-ray examination of the chest. Electronically Signed: Anil Laboy MD at 13:52 EDT ,
[2022-06-25] MEDS: Albuterol 2.5 MG/3 ML VIAL.NEB. INHALATION (13:40)
[2022-06-25] MEDS: Ipratropium/Albuterol Sulfate 3 ML AMPUL.NEB INHALATION (13:40)
[2022-06-25] MEDS: predniSONE 20 MG Tablet 60 MG PO (13:44)
[2022-06-25 13:45] VITALS: O2SAT 97
[2022-06-25 13:53] VITALS: PULSE 89; RESP 16
== END 2022-06-25 14:43 | disposition home or self-care (01) ==
PROVIDERS: Emergency Provider Student in an Organized Health Care Education/Training Program; PCP Internal Medicine; Visit Provider Student in an Organized Health Care Education/Training Program
DX: J06.9 Acute upper respiratory infection, unspecified (principal); E11.9 Type 2 diabetes mellitus without complications; Z87.891 Personal history of nicotine dependence; I10 Essential (primary) hypertension; E78.00 Pure hypercholesterolemia, unspecified; J45.909 Unspecified asthma, uncomplicated; Z79.52 Long term (current) use of systemic steroids
CPT/HCPCS: 71045; 94640; 99283

== ENCOUNTER 2022-08-12 15:58 | Emergency (ER) | payer MEDICAID, SELFPAY ==
[2022-08-12 15:59] VITALS: BP 153/88; PULSE 109; RESP 18; TEMP 36.8; O2SAT 99; BMI 38.5
--- NOTE | 2022-08-12 17:00 | EKG12_ITS ---
Test Reason : Blood Pressure : / mmHG Vent. Rate : 094 BPM Atrial Rate : 094 BPM P-R Int : 162 ms QRS Dur : 094 ms QT Int : 362 ms P-R-T Axes : 067 084 047 degrees QTc Int : 452 ms Normal sinus rhythm Normal ECG Confirmed by YOVANY LU, ROBERTO CARLOS ([id number]), order editor ROB HATCH ([id number]) on 08/16/2022 11:06:41 AM Referred By: DELICIA Confirmed By:BOYD PEDROZA MD
--- NOTE | 2022-08-12 17:02 | ED.VIS.DYS ---
HPI History of Present Illness Chief Complaint: Shortness of Breath Narrative Narrative: 21-year-old female with history of asthma presenting with shortness of breath and cough since yesterday. She admits to chills and body aches but has not had a fever. She states her chest feels like it is burning. She denies chest pressure. She states she does not have any sharp or pleuritic pain. Most of the pain comes when she coughs. No cardiac history except for history of wearing a Holter monitor. There is no sputum production. No nausea or vomiting. Patient states the last time she felt this way she was admitted for pneumonia and DKA. She states she does not know if she is a type I or type II diabetic. [facility] Medical History Anemia Asthma Chronic back pain Chronic bronchitis COVID-19 Depression Diabetes Essential hypertension Generalized anxiety disorder Generalized anxiety disorder with panic attacks High cholesterol History of migraine Hypersomnia Insomnia Left shoulder pain Left ventricular noncompaction Low back pain Low calcium levels Obesity (BMI 30-39.9) Paresthesia Pneumonia Right knee pain Shortness of breath Thyromegaly Thyromegaly Vision problems Vitamin deficiency Home Medications albuterol sulfate 2.5 mg/3 mL (0.083 %) solution for nebulization 2.5 mg inhalation Q6H PRN Shortness Of Breath Or Wheezing 10/06/20 [History Last Taken Unknown] albuterol sulfate 90 mcg/actuation aerosol inhaler (ProAir HFA) 2 puff inhalation Q6H PRN Shortness Of Breath Or Wheezing 10/06/20 [History Last Taken Unknown] amlodipine 5 mg tablet 5 mg PO DAILY 10/06/20 [History Last Taken Unknown] cetirizine 10 mg tablet 10 mg PO DAILY 10/06/20 [History Last Taken Unknown] fluticasone propionate 50 mcg/actuation nasal spray,suspension (Allergy Relief (fluticasone)) 2 spray intranasal DAILY 10/06/20 [History Last Taken Unknown] propranolol 20 mg tablet 20 mg PO BID 10/06/20 [History Last Taken Unknown] sumatriptan succinate 50 mg tablet See Rx Instructions PO .COMPLEX 10/06/20 [History Last Taken Unknown] azelastine 137 mcg (0.1 %) nasal spray aerosol 2 spray intranasal BID #30 mL 05/16/21 [Rx Last Taken Unknown] cholecalciferol (vitamin D3) 50 mcg (2,000 unit) capsule 50 mcg PO DAILY #90 caps 07/21/21 [Rx Last Taken Unknown] cyclobenzaprine 10 mg tablet 10 mg PO BID #60 tabs 09/02/21 [Rx Last Taken Unknown] lorazepam 1 mg tablet 1 mg PO 4X/DAY PRN PRN Anxiety #100 tabs 09/02/21 [Rx Last Taken Unknown] meloxicam 15 mg tablet 15 mg PO DAILY PRN Knee Pain #60 tabs 09/02/21 [Rx Last Taken Unknown] sertraline 100 mg tablet 100 mg PO DAILY #90 tabs 01/19/22 [Rx Last Taken Unknown] blood sugar diagnostic (FreeStyle Test strips) #50 ea 06/07/22 [Rx Last Taken Unknown] blood-glucose meter (FreeStyle System Kit) #1 ea 06/07/22 [Rx Last Taken Unknown] buspirone 10 mg tablet 10 mg PO TID #270 tabs 06/07/22 [Rx Last Taken Unknown] lancets 28 gauge (FreeStyle Lancets) #50 ea 06/07/22 [Rx Last Taken Unknown] albuterol sulfate 90 mcg/actuation breath activated powder inhaler 2 inh inhalation Q6H PRN shortness of breath #1 ea 06/25/22 [Rx Last Taken Unknown] prednisone 10 mg tablet 40 mg PO DAILY 4 days #16 tabs 06/25/22 [Rx Last Taken Unknown] prednisone 50 mg tablet 50 mg PO DAILY 5 days #5 tabs 08/12/22 [Rx Last Taken Unknown] Allergy/AdvReac Type Severity Reaction Status Date / Time amoxicillin Allergy Unknown unknown Verified 08/12/22 15:59 azithromycin Allergy Unknown unknown Verified 08/12/22 15:59 [From Zithromax Z-Clyde] Penicillins Allergy Unknown unknown Verified 08/12/22 15:59 Family History Father Suicide Grandfather Diabetes Grandmother Hypertension Aunt Hypertension Other Anxiety Arthritis Asthma Depression Osteoporosis Respiratory disease Severe allergy Surgical History History of myringotomy History of nasal cauterization History of tonsillectomy and adenoidectomy Social History Smoking Status: Former smoker Tobacco: How many years used: 4 how long ago did patient quit smokin09/04/2020 alcohol intake: current alcohol intake frequency: a few times a month Alcohol type: hard liquor substance use type: does not use caffeine: No what type of physical activity do you participate in: walking frequency: daily additional social history: DOES NOT TAKE ASPIRIN DOES TAKE IBUPROFEN NEEDED ROS ROS ED Constitutional Constitutional ED: Denies chills or fever(s) Eyes Eyes: Denies change in vision or diplopia ENT ENT ED: Denies sore throat Cardiovascular Cardiovascular: Reports chest pain Respiratory/Chest Respiratory/Chest: Reports cough and dyspnea Gastrointestinal Gastrointestinal: Denies abdominal pain, nausea or vomiting Genitourinary Genitourinary ED: Denies dysuria or hematuria Musculoskeletal Musculoskeletal: Reports myalgias Integumentary Denies Abrasions Neurologic Neurologic: Denies headache(s) or paresthesias Psychiatric Psychiatric: Denies anxiety or depression EXAM Physical Exam Const Vital Signs: 08/12/22 15:59 08/12/22 16:53 08/12/22 17:13 Temperature 98.3 F Temperature Source Temporal Pulse Rate 109 H Respiratory Rate 18 Respiratory Effort Normal Non-Labored Respiratory Depth Normal Respiratory Pattern Normal Blood Pressure 153/88 H Blood Pressure Mean 109 Pulse Ox 99 Oxygen Delivery Method Room Air Room Air Room Air 08/12/22 17:08 08/12/22 18:14 Temperature Temperature Source Pulse Rate 96 103 H Respiratory Rate 20 H 15 Respiratory Effort Respiratory Depth Respiratory Pattern Normal Blood Pressure Blood Pressure Mean Pulse Ox 99 Oxygen Delivery Method Room Air Positive well nourished HEENT Reports moist mucous membranes atraumatic Neck no lymphadenopathy and supple Resp normal respiratory effort and clear to auscultation bilaterally Auscultation: Negative for rales, rhonchi or wheezes Cardio regular rate and regular rhythm Neuro oriented x3 and CN's II-XII intact bilaterally Sensorium / Orientation: alert Psych mental status grossly normal Skin no wounds and skin turgor normal MDM MDM MDM Narrative Medical decision making narrative: Patient presenting with shortness of breath and burning in her lungs. She requested DuoNeb but she is not wheezing. She has no chest pressure or pleuritic chest pain. I obtain basic blood work and her CBC is within normal limits. BMP shows a slight glucose elevation of 187 without an anion gap. Electrolytes are unremarkable. High-sensitivity troponin is 5 and this has been going on since yesterday in addition to the fact that she is complaining of burning and not pressure or pleuritic pain. Rapid COVID and influenza are negative chest x-ray on my interpretation shows no acute cardiopulmonary process and the radiologist report is agrees. EKG on my interpretation is a normal sinus rhythm with a ventricular rate of 94 bpm without signs of ischemic change or dysrhythmia. Patient feels improved from shortness of breath this point active but states her lungs are still burning. She request prednisone. I did tell her that with her history of diabetes this would make her blood sugars go up. She states I do not care about my blood sugars. Patient was given a dose of prednisone here in the ER. Since her work-up is normal I feel she can be discharged home. She will be given a burst of prednisone for home as well. Return precautions were discussed. Impression: 1. Dyspnea 2. Hyperglycemia 3. Chest pain noncardiac 4. Viral syndrome Lab Data Attestation: I reviewed the patient's lab results. Labs: Laboratory Results - last 24 hr 08/12/22 08/12/22 08/12/22 17:00 17:00 17:10 WBC 9.5 RBC 4.29 Hgb 14.1 Hct 42.4 MCV 98.8 MCH 32.9 H MCHC 33.3 RDW Std Deviation 44.1 H RDW Coeff of [place] 12.1 Plt Count 264 MPV 8.9 Immature Gran % (Auto) 0.400 Neut % (Auto) 71.7 H Lymph % (Auto) 23.0 [place] % (Auto) 4.0 Eos % (Auto) 0.7 Baso % (Auto) 0.2 Absolute Neuts (auto) 6.8 Absolute Lymphs (auto) 2.19 Nucleated RBC % 0 Sodium 141 Potassium 3.6 Chloride 109 H Carbon Dioxide 29.0 Anion Gap 3 L BUN 11 Creatinine 0.83 Estim Creat Clear Calc 117.82 Est GFR (MDRD) Af Amer 110 Est GFR (MDRD) Non-Af 91 BUN/Creatinine Ratio 13.3 Glucose 187 H Calcium 9.5 Troponin I High Sens 5 POC Glucose 186 H Radiography Diagnostic Testing: Clinical Impression(s) from Imaging Studies Chest X-Ray 08/12/22 17:25 IMPRESSION: No radiographic evidence of acute cardiopulmonary disease. Electronically Signed: Efraín Bonilla MD at 17:55 EST , Discharge Plan Triage Chief Complaint: Shortness of Breath Other Complaint: Cough ED Provider: Judah Michelle Dx/Rx/DC Orders Instructions: ED Viral Syndrome (Adult) Prescriptions: New prednisone 50 mg tablet 50 mg PO DAILY 5 Days Qty: 5 0RF No Action albuterol sulfate 2.5 mg /3 mL (0.083 %) solution for nebulization 2.5 mg INHALATION Q6H PRN (Reason: Shortness Of Breath Or Wheezing) albuterol sulfate [ProAir HFA] 90 mcg/actuation HFA aerosol inhaler 2 puff INHALATION Q6H PRN (Reason: Shortness Of Breath Or Wheezing) amlodipine 5 mg tablet 5 mg PO DAILY cetirizine 10 mg tablet 10 mg PO DAILY fluticasone propionate [Allergy Relief (fluticasone)] 50 mcg/actuation spray,suspension 2 spray INTRANASAL DAILY Rx Instructions: administer into each nostril propranolol 20 mg tablet 20 mg PO BID sumatriptan succinate 50 mg tablet See Rx Instructions PO .COMPLEX Rx Instructions: take 1 tab at onset of headache; if no relief may repeat 1 tab after at least 2 hrs; max = 4 tabs/24 hr PO cholecalciferol (vitamin D3) 50 mcg (2,000 unit) capsule 50 mcg PO DAILY Qty: 90 3RF cyclobenzaprine 10 mg tablet 10 mg PO BID Qty: 60 1RF lorazepam 1 mg tablet 1 mg PO 4X/DAY PRN PRN (Reason: Anxiety) Qty: 100 0RF meloxicam 15 mg tablet 15 mg PO DAILY PRN (Reason: Knee Pain) Qty: 60 0RF Rx Instructions: Take daily for 7-10 days then just as needed. (DME) FreeStyle Test Strip See Rx Instructions .ROUTE .MEDSUPPLY Qty: 50 11RF Rx Instructions: check blood glucose daily (DME) blood-glucose meter [FreeStyle System Kit] Kit See Rx Instructions .ROUTE .MEDSUPPLY Qty: 1 0RF Rx Instructions: check blood glucose daily for type 2 DM (DME) lancets [FreeStyle Lancets] 28 gauge misc See Rx Instructions .ROUTE .MEDSUPPLY Qty: 50 11RF Rx Instructions: Check blood glucose daily for type 2 DM buspirone 10 mg tablet 10 mg PO TID Qty: 270 1RF azelastine 137 mcg (0.1 %) aerosol,spray 2 spray intranasal BID Qty: 30 0RF Rx Instructions: administer into each nostril prednisone 10 mg tablet 40 mg PO DAILY 4 Days Qty: 16 0RF albuterol sulfate 90 mcg/actuation aerosol powdr breath activated 2 inh inhalation Q6H PRN (Reason: shortness of breath) Qty: 1 0RF sertraline 100 mg tablet 100 mg PO DAILY Qty: 90 1RF Rx Instructions: Increase to 150 mg in 2 weeks Primary Care Provider: Delma Amos Referrals: Delma Amos MD [Primary Care Provider] - Disposition Disposition: Home, Self Care
[2022-08-12 17:07] LABS: Absolute Lymphocyte Count 2.19 X10^3/uL (0.83-4.51); Absolute Neutrophil Count 6.8 X10^3/uL (2.0-7.7); Basophil# 0.02 X10^3/uL; Basophil% 0.2 % (0-1); Eosinophil# 0.07 X10^3/uL; Eosinophils% 0.7 % (0-5); Hematocrit 42.4 % (37-47); Hemoglobin 14.1 g/dL (12.0-15.0); Lymphocyte # 2.19 X10^3/ul (0.83-4.51); Mean Corp Hgb Conc 33.3 g/dL (32-36); Mean Corpuscular Hgb 32.9 pg (27.0-32.0); Mean Corpuscular Volume 98.8 fL (81-99); Mean Platelet Vol. 8.9 fl (6.2-12.0); Monocyte# 0.38 X10^3/uL; NRBC Flagged by Analyzer 0 % (0-5); Neutrophil # 6.83 X10^3/uL (2.7-7.7); Neutrophil % 71.7 % (47-70); Platelet Count 264 K/mm3 (150-450); RBC Distribution Width CV 12.1 % (11.6-14.6); RBC Distribution Width SD 44.1 fl (35.1-43.9); Red Blood Count 4.29 M/mm3 (4.2-5.4); White Blood Count 9.5 K/mm3 (4.4-11.0)
[2022-08-12 17:08] VITALS: PULSE 96; RESP 20
[2022-08-12] MEDS: Ipratropium/Albuterol Sulfate 3 ML AMPUL.NEB INHALATION (17:08)
[2022-08-12 17:24] LABS: Anion Gap 3 (5-15); BUN 11 mg/dL (7-18); BUN/Creat Ratio 13.3 RATIO (10-20); Calcium,Total 9.5 mg/dL (8.5-10.1); Chloride 109 mmol/L (98-107); Creatinine, Serum 0.83 mg/dL (0.55-1.02); EST Glomerular Filtration Rate 91 mL/min (>60); Est Glom Filt Rate - Afr Amer 110 mL/min (>60); Estimated Creatinine Clearance 117.82 ml/min; Glucose 187 mg/dL (74-106); Potassium 3.6 mmol/L (3.5-5.1); Sodium Level 141 mmol/L (136-145); Troponin-I HS 5 pg/mL (3.0-54.0)
--- NOTE | 2022-08-12 17:25 | RAD_ITS ---
INDICATION: chest pain EXAMINATION/TECHNIQUE: X-RAY - XR Chest 1 View COMPARISON: None. FINDINGS: LINES/DEVICES: None. LUNGS: No consolidation, edema or effusion. No pneumothorax. MEDIASTINUM AND CARDIOVASCULAR STRUCTURES: Cardiac silhouette not enlarged. Central airways and mediastinal contour are unremarkable. BONES AND SOFT TISSUES: Unremarkable. RAD/Chest 1 View (Portable) IMPRESSION: No radiographic evidence of acute cardiopulmonary disease. Electronically Signed: Efraín Bonilla MD at 17:55 EST ,
[2022-08-12 17:30] LABS: Bedside Glucose 186 mg/dL (74-106)
[2022-08-12 18:14] VITALS: PULSE 103; RESP 15; O2SAT 99
[2022-08-12] MEDS: predniSONE 20 MG Tablet 60 MG PO (19:44)
[2022-08-12 19:45] VITALS: RESP 16
== END 2022-08-12 19:46 | disposition home or self-care (01) ==
PROVIDERS: Emergency Provider Student in an Organized Health Care Education/Training Program; PCP Internal Medicine; Visit Provider Student in an Organized Health Care Education/Training Program
DX: R07.89 Other chest pain (principal); E11.65 Type 2 diabetes mellitus with hyperglycemia; B34.9 Viral infection, unspecified; E78.00 Pure hypercholesterolemia, unspecified; I10 Essential (primary) hypertension; R06.02 Shortness of breath; Z87.891 Personal history of nicotine dependence; Z20.822 Contact with and (suspected) exposure to COVID-19
CPT/HCPCS: 71045; 80048; 82962; 84484; 85025; 87428; 93005; 94640; 99285; A4216

== ENCOUNTER → 2022-12-23 | Outpatient (CLI) | payer MEDICAID, SELFPAY ==
--- NOTE | 2022-12-23 10:03 | TELEMED_ITS ---
[facility] has confirmed receipt of a request for visit. This document confirms receipt of the order initiating the consult. To find the results of the consultation, please view the patient's reports for the scanned Tele[facility] Consult.
== END | disposition home or self-care (01) ==
LOC: PSN 08:41
PROVIDERS: PCP Internal Medicine; Referring Provider Psychiatry & Neurology Neurology; Visit Provider Psychiatry & Neurology Neurology
DX: F07.81 Postconcussional syndrome (principal); R41.3 Other amnesia
CPT/HCPCS: 95819

== ENCOUNTER → 2023-03-16 | Outpatient (CLI) | payer MEDICAID, SELFPAY ==
--- NOTE | 2023-03-16 13:11 | MRI_ITS ---
STUDY: MRI RIGHT KNEE REASON FOR EXAM: Female, 22 years old. Medial knee pain. History of fall 7 years ago. TECHNIQUE: Standardized fat and water weighted pulse sequences were obtained in all 3 orthogonal planes. COMPARISON: None. FINDINGS: Complex tear of the posterior horn of the medial meniscus with a vertical component to the tear extending into the anterior horn (coronal series 6 images 7-20). Mild thinning of the articular cartilage of the medial femorotibial compartment (coronal series 6 images 10-16). Normal medial femoral condyle and tibial plateau. Slight thickening of the proximal medial collateral ligament (coronal series 6 image 15). Normal distal semimembranosus, gracilis and semitendinosus tendons. Normal lateral meniscus. Normal hyaline cartilage of the lateral femorotibial compartment. Normal lateral femoral condyle and tibial plateau. Normal proximal tibiofibular articulation. Normal lateral collateral (fibular) ligament. Normal popliteus tendon. Normal biceps femoris tendon. Remote tear of the anteromedial bundle of the ACL with preservation of the posterolateral bundle (sagittal series 3 images 20-24, coronal series 6 images 10-15). Buckling of the PCL compatible with anterior tibial translation (sagittal series 3 image 24). Normal congruent patellofemoral articulation. Normal hyaline cartilage of the patellofemoral compartment. Normal medial and lateral patellar retinaculum. Normal quadriceps tendon. Normal patellar tendon. Normal Hoffa''s fat pad. Small joint effusion (axial series 2 images 7-10). Soft tissues and visualized osseous structures are normal.. MRI/Lower Ext Joint Only (Routine) IMPRESSION: Complex tear of the posterior horn of the medial meniscus with a vertical component to the tear extending from the posterior horn to the anterior horn. No displacement of the inner fragment. Mild thinning of the articular cartilage of the medial femorotibial compartment. Slight thickening of the proximal MCL. Remote tear of the anteromedial bundle of the ACL with preservation of the posterolateral bundle. Buckling of the PCL compatible with anterior tibial translation. Small joint effusion. Electronically Signed: Larry Frost MD at 18:26 EDT ,
--- NOTE | 2023-03-16 13:12 | MRI_ITS ---
INDICATION: POST CONCUSSIVE SYNDROME,HEDACHES,MEMORY LOSS EXAMINATION: MRI - MR Brain WO/W Contrast TECHNIQUE: Multiplanar and multisequence MR images of the brain were obtained without and with gadolinium. IV Contrast Dosage and Agent: 23 ml Clariscan. COMPARISON: None FINDINGS: BRAIN PARENCHYMA: Normal midline developmental anatomy. Cerebellar pontine angles are clear. No Chiari malformation. Borderline low right cerebellar tonsil of unlikely clinical significance. No hydrocephalus. Unremarkable sella and pituitary. Normal naik-white matter signal. No diffusion restriction. No focal susceptibility artifact or other evidence of prior hemorrhage. No evidence of intracranial space occupying mass or mass effect. No abnormal brain parenchymal or meningeal enhancement. INTERNAL AUDITORY CANALS: The internal auditory canals are well visualized and patent. No mass identified. VASCULAR SYSTEM: Normal flow voids in the major intracranial circulation. Scattered mild paranasal sinus mucoperiosteal thickening. Mastoid air cells are clear. CALVARIUM, SKULL BASE, PARANASAL SINUSES AND MASTOID AIR CELLS: Clear. No expansile changes. ORBITS: Both globes, extraocular muscles, optic nerves and retrobulbar fat appear unremarkable. MRI/Brain W/WO Contrast IMPRESSION: No evidence of acute intracranial process or sequela of focal injury. Mild scattered paranasal sinus disease. Electronically Signed: Caio Moralez MD at 3:16 EDT Reading Location ID and State: [facility] / [place] Tel , Service support ,
[2023-03-16 13:40] LABS: CREATININE FINGERSTICK 0.9 mg/dL (0.55-1.02); EGFR FINGERSTICK > 60.0000 mL/min (>60)
[2023-03-16 15:34] LABS: Hematocrit 42.8 % (37-47); Hemoglobin 15.2 g/dL (12.0-15.0); Mean Corp Hgb Conc 35.5 g/dL (32-36); Mean Corpuscular Hgb 34.9 pg (27.0-32.0); Mean Corpuscular Volume 98.2 fL (81-99); Mean Platelet Vol. 9.4 fl (6.2-12.0); Platelet Count 295 K/mm3 (150-450); RBC Distribution Width CV 11.9 % (11.6-14.6); RBC Distribution Width SD 43.1 fl (35.1-43.9); Red Blood Count 4.36 M/mm3 (4.2-5.4); White Blood Count 9.5 K/mm3 (4.4-11.0)
[2023-03-16 16:07] LABS: Vitamin B12 380 pg/mL (211-911)
[2023-03-16 16:18] LABS: AST(SGOT) 17 U/L (15-37); Alanine Aminotransfer ALT/SGPT 46 U/L (13-56); Albumin, Serum 3.8 g/dL (3.2-5.0); Alkaline Phosphatase 74 U/L (45-117); Anion Gap 6 (5-15); BUN 12 mg/dL (7-18); BUN/Creat Ratio 13.5 RATIO (10-20); Calcium,Total 9.3 mg/dL (8.5-10.1); Chloride 104 mmol/L (98-107); Creatinine, Serum 0.89 mg/dL (0.55-1.02); EST Glomerular Filtration Rate 83 mL/min (>60); Est Glom Filt Rate - Afr Amer 101 mL/min (>60); Globulin 3.8 g/dL (2.2-4.2); Glucose 291 mg/dL (74-106); Protein, Total 7.6 g/dL (6.4-8.2); Sodium Level 137 mmol/L (136-145); T4 Free Direct 0.99 ng/dL (0.76-1.46); Thyroid Stim Hormone (TSH) 1.45 uIU/mL (0.358-3.74)
[2023-03-20 12:08] LABS: Vitamin D 1,25-Dihydroxy 49.1 pg/mL (24.8-81.5)
[2023-03-21 17:07] LABS: Vitamin B1, Thiamine 143.8 nmol/L (66.5-200.0)
== END | disposition home or self-care (01) ==
PROVIDERS: PCP Internal Medicine; Referring Provider Psychiatry & Neurology Neurology; Visit Provider Psychiatry & Neurology Neurology
DX: R53.83 Other fatigue (principal); E55.9 Vitamin D deficiency, unspecified; F07.81 Postconcussional syndrome; G43.009 Migraine without aura, not intractable, without status migrainosus; E01.0 Iodine-deficiency related diffuse (endemic) goiter; M25.561 Pain in right knee
CPT/HCPCS: 36415; 70553; 73721; 80053; 82607; 82652; 82746; 84425; 84439; 84443; 85027; A9575

== ENCOUNTER → 2023-05-11 | Outpatient (CLI) | payer MEDICAID, SELFPAY ==
[2023-05-11 16:47] LABS: Absolute Lymphocyte Count 2.33 X10^3/uL (0.83-4.51); Absolute Neutrophil Count 6.9 X10^3/uL (2.0-7.7); Basophil# 0.04 X10^3/uL; Basophil% 0.4 % (0-1); Eosinophil# 0.19 X10^3/uL; Eosinophils% 1.9 % (0-5); Hematocrit 41.6 % (37-47); Hemoglobin 14.1 g/dL (12.0-15.0); Lymphocyte # 2.33 X10^3/ul (0.83-4.51); Lymphocyte % 23.7 % (19-41); Mean Corp Hgb Conc 33.9 g/dL (32-36); Mean Corpuscular Hgb 33.5 pg (27.0-32.0); Mean Corpuscular Volume 98.8 fL (81-99); Mean Platelet Vol. 9.3 fl (6.2-12.0); Monocyte% 4.1 % (0-10); NRBC Flagged by Analyzer 0 % (0-5); Neutrophil # 6.85 X10^3/uL (2.7-7.7); Neutrophil % 69.7 % (47-70); Platelet Count 290 K/mm3 (150-450); RBC Distribution Width CV 11.7 % (11.6-14.6); RBC Distribution Width SD 42.1 fl (35.1-43.9); Red Blood Count 4.21 M/mm3 (4.2-5.4); White Blood Count 9.8 K/mm3 (4.4-11.0)
[2023-05-11 17:15] LABS: ALB/GLOB Ratio 0.9 RATIO (0.9-2.4); AST(SGOT) 16 U/L (15-37); Alanine Aminotransfer ALT/SGPT 32 U/L (13-56); Albumin, Serum 3.4 g/dL (3.2-5.0); Alkaline Phosphatase 66 U/L (45-117); Anion Gap 6 (5-15); BUN 12 mg/dL (7-18); BUN/Creat Ratio 14.8 RATIO (10-20); Calcium,Total 9.1 mg/dL (8.5-10.1); Chloride 107 mmol/L (98-107); Creatinine, Serum 0.81 mg/dL (0.55-1.02); EST Glomerular Filtration Rate 92 mL/min (>60); Est Glom Filt Rate - Afr Amer 111 mL/min (>60); Globulin 3.8 g/dL (2.2-4.2); Glucose 286 mg/dL (74-106); Potassium 3.7 mmol/L (3.5-5.1); Protein, Total 7.2 g/dL (6.4-8.2); Sodium Level 139 mmol/L (136-145)
== END | disposition home or self-care (01) ==
LOC: BIMLAB 15:20
PROVIDERS: PCP Internal Medicine; Visit Provider Internal Medicine
DX: Z01.818 Encounter for other preprocedural examination (principal)
CPT/HCPCS: 36415; 80053; 85025

== ENCOUNTER → 2023-08-03 | Outpatient (CLI) | payer MEDICAID, SELFPAY ==
[2023-08-03 17:13] LABS: Absolute Lymphocyte Count 2.77 X10^3/uL (0.83-4.51); Absolute Neutrophil Count 5.1 X10^3/uL (2.0-7.7); Basophil# 0.02 X10^3/uL; Basophil% 0.2 % (0-1); Eosinophil# 0.09 X10^3/uL; Eosinophils% 1.1 % (0-5); Hematocrit 41.3 % (37-47); Lymphocyte # 2.77 X10^3/ul (0.83-4.51); Lymphocyte % 33.2 % (19-41); Mean Corp Hgb Conc 33.9 g/dL (32-36); Mean Corpuscular Hgb 34.2 pg (27.0-32.0); Mean Platelet Vol. 8.9 fl (6.2-12.0); Monocyte# 0.33 X10^3/uL; NRBC Flagged by Analyzer 0 % (0-5); Neutrophil # 5.13 X10^3/uL (2.7-7.7); Neutrophil % 61.4 % (47-70); Platelet Count 294 K/mm3 (150-450); RBC Distribution Width CV 11.9 % (11.6-14.6); RBC Distribution Width SD 43.4 fl (35.1-43.9); Red Blood Count 4.09 M/mm3 (4.2-5.4); White Blood Count 8.4 K/mm3 (4.4-11.0)
[2023-08-03 17:33] LABS: ALB/GLOB Ratio 0.9 RATIO (0.9-2.4); AST(SGOT) 18 U/L (15-37); Alanine Aminotransfer ALT/SGPT 39 U/L (13-56); Albumin, Serum 3.7 g/dL (3.2-5.0); Alkaline Phosphatase 58 U/L (45-117); Anion Gap 4 (5-15); BUN 14 mg/dL (7-18); BUN/Creat Ratio 19.5 RATIO (10-20); Calcium,Total 9.4 mg/dL (8.5-10.1); Chloride 106 mmol/L (98-107); Creatinine, Serum 0.72 mg/dL (0.55-1.02); EST Glomerular Filtration Rate 105 mL/min (>60); Est Glom Filt Rate - Afr Amer 128 mL/min (>60); Globulin 3.9 g/dL (2.2-4.2); Glucose 90 mg/dL (74-106); Potassium 4.1 mmol/L (3.5-5.1); Protein, Total 7.6 g/dL (6.4-8.2); Sodium Level 140 mmol/L (136-145)
== END | disposition home or self-care (01) ==
LOC: BIMLAB 15:09
PROVIDERS: PCP Internal Medicine; Referring Provider Internal Medicine; Visit Provider Internal Medicine
DX: R05.9 Cough, unspecified (principal); R04.2 Hemoptysis
CPT/HCPCS: 36415; 80053; 85025

== ENCOUNTER → 2023-09-27 | Outpatient (CLI) | payer MEDICAID, SELFPAY ==
--- OUTSIDE RECORDS SUMMARY | 2023-09-27 11:10 | XMS RPT_ITS | CCD ---
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 CONSTRUCTION MANAGER - 06/21/2023 12:15 PM Colleen Jaramillo RDMS - 05/19/2023 10:30 AM EDT Note Date & Type Note Facility 09-11-2023 Note HNO ID: [id number] Author: TORI DURBIN RD Service: ? Author Type: Registered Dietitian Type: Progress Notes Filed: 09/11/2023 13:12 Note Text: Nutrition Therapy Initial Assessment Nutrition Diagnosis: Altered nutrition-related lab values, related to, endocrine dysfunction, as evidenced by uncontrolled diabetes . RECOMMENDED MALNUTRITION DIAGNOSIS: NO MALNUTRITION IDENTIFIED NUTRITION CARE PLAN Nutrition Intervention 09/11/2023: modify type and amount of food or beverage Consider keeping a food and glucose record to determine cause of low blood sugars Have protein and fiber for breakfast; Follow the Plate Method at lunch and dinner: aiming for 2-3 carb choices per meal; make sure carbs are whole grain and high fiber. Use a 9 plate - 1/2 plate vegetables-non starchy such as green beans, greens, broccoli, cauliflower, etc (1 serving of fruit optional outside of plate) - 1/4 plate lean protein-primarily chicken, turkey fish, lean red 1-2 x per week at most (size of palm) - 1/4 plate whole grain or starchy vegetable such as corn, peas, potatoes, beans (size of fist, 1 cup) Nutrition Monitoring AND Evaluation: weight loss and labs in target range Need for Follow up: 4-6 weeks Patient presents for initial MNT as relates to type 2 DM, uncontrolled, diagnosed about 3 years ago. Last HgA1c 6.8 as ob July . Has less appetite with Trulicity, typically eats two meals per day, dinner meal may be late after work if unable to eat at work. Stopped insulin due to frequent low bloods, has on reserve as needed. Will be starting a 75 Hard plan, plans on Pescatarian diet, will avoid alcohol and sugar Patient's symptoms are: fluctuating blood sugars Diet History: 109 range Breakfast - usually skip Snack - no 126 Lunch - usually first meal around noon: broccoli, carrots, vegan sausage, noodles Ramen, perogis, yesterday: chili with turkey and ital sausage and beans, corn bread and deviled eggs. 142 Snack - not usually Dinner - eat at work or after chicken tenders with Ff and broccolli, burger with FF and shauna salad ,or salmon with potato and broccoili; water Snack - not unless sugar low Beverages - water, zero poweraid, o juice if sugar Alcohol- 1-2 x per month, selter drinks Vitamins/Supplements - D3, B12, vit C Lows random: through the night or randomly To the 50's Activity: Activities of Daily Living: Active 50% of the day. 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 Resting Metabolic Rate: 2122 Malnutrition Screening Significant unintentional weight loss? No Eating less than 75% of usual intake for more than 2 weeks? No Potential Signs of Inflammation: no identifiable sources Education Materials Provided: Plate method READINESS TO LEARN Cognitive ability: Alert and oriented Motivation to learn: Interested Family support: Unable to assess - Family not present Instruction provided to: Patient Patient learns best by: Individual Instruction Factors affecting learning: None Physical limitations affecting learning: None Referred/Supervised by: Renzo/Bill LOPES Billing Type: Initial Assess/15 min 3 units SIGNATURE: Tori Durbin RD PATIENT NAME: Sugey West DATE: September 11, 2023 TIME: 11:11 AM [facility] 09-11-2023 Note Education (NUTRWS) KATHYSUGEY ([id number]) 2000 F T Date Time Provider Department 09/11/23 11:00 AM TORI DURBIN Reason for Visit: Patient Education [91] Assessment [673] Primary Visit Diagnosis:Obesity, Class II, BMI 35-39.9 [E66.9] Other Visit Diagnoses:Type II diabetes mellitus with manifestations (HCC) [E11.8] Dietary counseling [Z71.3] Order(s):CONSULT TO NUTRITION THERAPY [9020] Order #: [id number]: 4 During your visit today, we recorded the following information about you: Weight Height 127.6 kg 1.803 m Allergies As of Date: 09/11/2023 Noted Allergy Reaction AMOXICILLIN 04/05/2023 16 - Unknown PENICILLINS 04/05/2023 16 - Unknown SEASONAL ALLERGIES 12/10/2012 14 - Other: See Comments Comments: sneezing, watery eyes, tired ZITHROMAX (AZITHROMYCIN) 05/12/2008 8 - GI Upset Date Reviewed: 09/11/2023 Reviewed by: Tori Durbin, POLINA - Fully Assessed Prescriptions as of 09/11/2023 - dulaglutide (TRULICITY) 3 mg/0.5 mL pen injector Inject 3 mg subcutaneously one time a week. - Blood-Glucose Sensor (FREESTYLE JAZMIN 3 SENSOR) osito CHANGE SENSOR EVERY 14 days. USE FOR CONTINUOUS GLUCOSE MONITORING> MULTIPLE INSULIN INJECTIONS. E11.9 - metFORMIN ER (GLUCOPHAGE XR) 500 mg 24 hr tablet Take 2 tabs with breakfast, 2 tabs with dinner - cyanocobalamin (VITAMIN B-12) 1,000 mcg tab Take 1 tablet by mouth once daily. - cholecalciferol (VITAMIN D-3) 5,000 unit tab Take 1 tablet by mouth once daily. - galcanezumab-gnlm (EMGALITY SYRINGE) 120 mg/mL syringe Inject subcutaneously once every month. Do not shake. - busPIRone (BUSPAR) 7.5 mg tablet 7.5 mg. - FREESTYLE JAZMIN 2 SENSOR kit - fluticasone (FLONASE) 50 mcg/actuation nasal spray place 2 sprays into each nostril once daily - nystatin-triamcinolone (MYCOLOG II) cream 0.5 gm, Topical, BID, # 30 gram(s), 0 Refill(s), Pharmacy: [id number], 177.5, cm, 03/13/23 10:35:00 EDT, Height, 117.5 - SUMAtriptan (IMITREX) 50 mg tablet TAKE 1 TABLET BY MOUTH EVERY 2 HOURS NEEDED FOR HEADACHE. MAX DOSE OF 2 TABLETS A DAY - cyclobenzaprine (FLEXERIL) 10 mg tablet Take 10 mg by mouth three times daily. prn - Insulin Eastman, Disposable, (BD ULTRAFINE III MINI PEN) 31 gauge x 3/16 Uses 4 per day with insulin injection E11.9 - FREESTYLE LITE STRIPS test strip Use up to 3 daily to calibrate CGM or check blood sugar as needed. INSULIN USE, multiple injections. E11.9 - sertraline (ZOLOFT) 25 mg tablet Take 25 mg by mouth once daily. - loratadine 10 mg ORAL Cap Take by mouth. - albuterol HFA 90 mcg/Actuation INHALATION inhaler Inhale 2 Puffs as instructed every 4 hours as needed for Wheezing/Shortness of Breath. - ALBUTEROL SULFATE 2.5 MG/3 ML (0.083 %) NEB SOLUTION 1 nebule every 6 hours as needed for wheezing Encounter Status:Closed by TORI DURBIN on 09/11/23 [facility] 08-30-2023 Note HNO ID: [id number] Author: Masood Lemus RN Service: ? Author Type: Registered Nurse Type: Progress Notes Filed: 08/30/2023 2:50 PM Note Text: DIABETES CARE AND EDUCATION VISIT Location: [place] Type of visit: In person individual PATIENT'S MAIN CONCERN TODAY: Not sure what is causing my weight gain Support person present for education today: none Cognitive ability: Alert and oriented Motivation to learn: Interested Learning barriers identified by educator: none Method of instruction: written, verbal, and demonstration DIABETES FINDINGS: Patient reports she is still having frequent lows, despite only being on the Metformin and Trulicity; stopped insulin due to frequent lows. Gained 20 lbs since June. Reports low blood sugars as often as 2-3x per day in the 50s per patient, although when I reviewed last two weeks of data there was only 4 low events but still uncommon that this would occur. Unclear cause of lows or weight gain. HANDOUTS: Healthy You: Survival Skills and Healthy You: Planning Healthy Meals LEARNING RESPONSE: Healthy eating: Demonstrated understanding/competency today or at previous visit Being active: Demonstrated understanding/competency today or at previous visit Taking medications: Demonstrated understanding/competency today or at previous visit POSSIBLE FUTURE TOPICS: 1. DIABETES CARE AND EDUCATION PLAN: Individual follow-up Time Spent (Minutes): 45 This visit note will be communicated to the healthcare provider via access to shared medical record. SIGNATURE: Masood Leums RN PATIENT NAME: Sugey West DATE: August 30, 2023 TIME: 1:52 PM [facility] 08-09-2023 Note HNO ID: [id number] Author: Mónica Casiano Service: ? Author Type: ? Type: Progress Notes Filed: 08/09/2023 9:52 AM Note Text: [facility] 08-09-2023 Note HNO ID: [id number] Author: Paige Muller APRN.CNP Service: ? Author Type: Nurse Practitioner Type: Progress Notes Filed: 08/09/2023 9:52 AM Note Text: OFFICE VISIT PROGRESS NOTE CC Sugey West is a 22 year old female who presents today for blood sugar review, insulin injections dose adjust. HPI Diagnosed with pre diabetes age 16 Dx with DM2 2019 Last endocrine OV 06/21/2023 Some elements copied from my note 06/21/2023 which have been updated where appropriate, and all reflect current medical decision making from date of this visit. Hospitalized for possible DKA 14% Started on basal and prandial insulin 2019 through 10/2022 In October 2022, patient was using: LANTUS 30 units once daily HUMALOG 15 units with meals. States was taken off the insulin because she was at 5% A1C Previously on OMNIPOD DASH Wants to go back on pump system Since end of November 2022 sugars again elevated into the 300s Pt is modified her diet - more greens, etc Reports neuropathy bilateral feet Did not see DM education Was scheduled for ACL/meniscus needs less than 8% on her A1c Does use FREESTYLE JAZMIN CGM for BG Has not been able to schedule her thyroid ultrasound until this coming Monday. Reports leg cramping, all over cramping - wondering if insulin may be causing Patient was started on EMGALITY one month ago. With further questioning, patient confirms that cramping started with EMGALITY injection start Vit D/B12 was checked during her son hospitalization for DKA Vit D level was 49 B12 low, but in normal range 349 HPI 06/20/2023 Walking for exercise more No changes to nutrition at this time Cut excess sugars out - did increase her greens intake Reports her blood sugars have been much better Would like to start the GLP1 Initially denied for francisco Trulicity was covered HPI 08/09/2023 Stopped insulin all together because she had low Ss fam MD did A1C and her last A1C was 6.1% (aug 03) Sts was on TRULICITY and Metformin and having lows Has not seen DM education Has not seen admissions manager Breakfast: oranges or grits and water Lunch: vegetables and noodles and paki sticks (dumpling) or chicken w cabbage Dinner: potato soup OR ham/mac/cheese and greens OR chicken/rice/brocolli Snacks: none Water for drinks CURRENT DM MEDS TRULICITY 1.5 weekly injection METFORMIN 500 2 tab BID Has not been using the followin weeks HUMALOG plus SS#2 (uses ~ 4-6 extra units) - has not needed TOUJEO units-300 inject 40 units daily - has not needed SMBG Freestyle jazmin Type of Monitor: Other Frequency of Monitorin times a day Hypoglycemia: no Diet: Low carbohydrate Exercise: walking DM REVIEW OF SYSTEMS Last Eye Exam : scheduled today at [facility] Last Podiatry Exam: due Cardiorespiratory: negative, denies chest pain, pressure Claudication: no Dyslipidemia: No High Blood Pressure: yes, on medication CURRENT LABS Component Latest Ref Rng AND Units 04/05/2023 06/21/2023 Hemoglobin A1C 4.3 - 5.6 % 10.9 (H) Estimated Average Glucose mg/dL 266 Glutamic Acid Decarboxylas Ab Qualitative Negative Negative Glutamic Acid Decarboxylase Ab <=5.0 IU/mL <5.0 Islet Cell Ab <1:4 <1:4 Hemoglobin A1C (POCT) 4.2 - 5.6 % 9.1 (A) PAST MEDICAL HISTORY Diagnosis Date Depression Diabetes mellitus (HCC) Essential hypertension Generalized anxiety disorder NEGATIVE MEDICAL HISTORY 09/04/2010 normal color vision PMH - PAST MEDICAL HISTORY OF mother reports has had varicella at age 3-4 years PMH - PAST MEDICAL HISTORY OF intentional ingestion of 10 restoril tabs Post concussion syndrome d/t accident in 2021 Unspecified asthma(493.90) PAST SURGICAL HISTORY Procedure Laterality Date PAST SURGICAL HISTORY OF nose cauterized x 4 PAST SURGICAL HISTORY OF tubes in both ears TONSILLECTOMY AND ADENOIDECTOMY FAMILY HISTORY Problem Relation Age of Onset Hypertension Maternal Grandmother and degenerative disc disease Cataract Other other (mother [Other]) Other other (father [Other]) Other Social History Tobacco Use Smoking status: Never Passive exposure: Yes Smokeless tobacco: Never Tobacco comments: grandmother smokes - she is child's guardian Vaping Use Vaping Use: current everyday user Substances: Nicotine Substance Use Topics Alcohol use: No Drug use: No Current Outpatient Medications Medication Sig dulaglutide (TRULICITY) 1.5 mg/0.5 mL pen injector Inject 1.5 mg subcutaneously one time a week. metFORMIN ER (GLUCOPHAGE XR) 500 mg 24 hr tablet Take 2 tabs with breakfast, 2 tabs with dinner cyanocobalamin (VITAMIN B-12) 1,000 mcg tab Take 1 tablet by mouth once daily. insulin glargine U-300 conc (TOUJEO MAX U-300 SOLOSTAR) 300 unit/mL (3 mL) inpn Inject 40 units daily - can increase by 2 units each week until morning sugar 130 then stay at that dose cholecalciferol (VITAMIN D (more content not included)... [facility] 08-09-2023 History of Presen t illness Narrative Images from the original note were not included. Images from the original note were not included. OFFICE VISIT PROGRESS NOTE MELISSA West is a 22 year old female who presents today for blood sugar review, insulin injections dose adjust. HPI Diagnosed with pre diabetes age 16 Dx with DM2 2020 Last endocrine OV 06/21/2023 Some elements copied from my note 06/21/2023 which have been updated where appropriate, and all reflect current medical decision making from date of this visit. Hospitalized for possible DKA 14% Started on basal and prandial insulin 2019 through 10/2022 In October 2022, patient was using: LANTUS 30 units once daily HUMALOG 15 units with meals. States was taken off the insulin because she was at 5% A1C Previously on OMNIPOD DASH Wants to go back on pump system Since end of November 2022 sugars again elevated into the 300s Pt is modified her diet - more greens, etc Reports neuropathy bilateral feet Did not see DM education Was scheduled for ACL/meniscus needs less than 8% on her A1c Does use [employer] JAZMIN CGM for BG Has not been able to schedule her thyroid ultrasound until this coming Monday. Reports leg cramping, all over cramping - wondering if insulin may be causing Patient was started on EMGALITY one month ago. With further questioning, patient confirms that cramping started with EMGALITY injection start Vit D/B12 was checked during her son hospitalization for DKA Vit D level was 49 B12 low, but in normal range 349 HPI 06/20/2023 Walking for exercise more No changes to nutrition at this time Cut excess sugars out - did increase her greens intake Reports her blood sugars have been much better Would like to start the GLP1 Initially denied for francisco Trulicity was covered HPI 08/09/2023 Stopped insulin all together because she had low Ss fam did A1C and her last A1C was 6.1% (aug 03) Sts was on TRULICITY and Metformin and having lows Has not seen DM education Has not seen admissions manager Breakfast: oranges or grits and water Lunch: vegetables and noodles and paki sticks (dumpling) or chicken w cabbage Dinner: potato soup OR ham/mac/cheese and greens OR chicken/rice/brocolli Snacks: none Water for drinks CURRENT DM MEDS TRULICITY 1.5 weekly injection METFORMIN 500 2 tab BID Has not been using the followin weeks HUMALOG plus SS#2 (uses ~ 4-6 extra units) - has not needed TOUJEO units-300 inject 40 units daily - has not needed SMBG Freestyle jazmin Type of Monitor: Other Frequency of Monitorin times a day Hypoglycemia: no Diet: Low carbohydrate Exercise: walking DM REVIEW OF SYSTEMS Last Eye Exam : scheduled today at [facility] Last Podiatry Exam: due Cardiorespiratory: negative, denies chest pain, pressure Claudication: no Dyslipidemia: No High Blood Pressure: yes, on medication CURRENT LABS Component Latest Ref Rng & Units 04/05/2023 06/21/2023 Hemoglobin A1C 4.3 - 5.6 % 10.9 (H) Estimated Average Glucose mg/dL 266 Glutamic Acid Decarboxylas Ab Qualitative Negative Negative Glutamic Acid Decarboxylase Ab <=5.0 IU/mL <5.0 Islet Cell Ab <1:4 <1:4 Hemoglobin A1C (POCT) 4.2 - 5.6 % 9.1 (A) PAST MEDICAL HISTORY Diagnosis Date Depression Diabetes mellitus (HCC) Essential hypertension Generalized anxiety disorder NEGATIVE MEDICAL HISTORY 09/04/2010 normal color vision PMH - PAST MEDICAL HISTORY OF mother reports has had varicella at age 3-4 years PMH - PAST MEDICAL HISTORY OF intentional ingestion of 10 restoril tabs Post concussion syndrome d/t accident in 2021 Unspecified asthma(493.90) PAST SURGICAL HISTORY Procedure Laterality Date PAST SURGICAL HISTORY OF nose cauterized x 4 PAST SURGICAL HISTORY OF tubes in both ears TONSILLECTOMY & ADENOIDECTOMY <AGE 10 FAMILY HISTORY Problem Relation Age of Onset Hypertension Maternal Grandmother and degenerative disc disease Cataract Other other (mother [Other]) Other other (father [Other]) Other Social History Tobacco Use Smoking status: Never Passive exposure: Yes Smokeless tobacco: Never Tobacco comments: grandmother smokes - she is child's guardian Vaping Use Vaping Use: current everyday user Substances: Nicotine Substance Use Topics Alcohol use: No Drug use: No Current Outpatient Medications Medication Sig dulaglutide (TRULICITY) 1.5 mg/0.5 mL pen injector Inject 1.5 mg subcutaneously one time a week. metFORMIN ER (GLUCOPHAGE XR) 500 mg 24 hr tablet Take 2 tabs with breakfast, 2 tabs with dinner cyanocobalamin (VITAMIN B-12) 1,000 mcg tab Take 1 tablet by mouth once daily. insulin glargine U-300 conc (TOUJEO MAX U-300 SOLOSTAR) 300 unit/mL (3 mL) inpn Inject 40 units daily - can increase by 2 units each week until morning sugar 130 then stay at that dose cholecalciferol (VITAMIN D-3) 5,000 unit tab Take 1 tablet by mouth once daily. insulin lispro (HUMALOG KWIKPEN) 100 unit/mL INJECT 22 UNITS SUBCUTANEOUSLY WITH MEALS PLUS SLIDING SCALE #2 (2 EXTRA UNITS FOR EVERY 50 OVER 150) - 60 UNITS TDD galcanezumab-gnlm (EMGALITY SYRINGE) 120 mg/mL syringe Inject subcutaneously once every month. Do not shake. busPIRone (BUSPAR) 7.5 mg tablet 7.5 mg. FREESTYLE JAZMIN 2 SENSOR kit fluticasone (FLONASE) 50 mcg/actuation nasal spray place 2 sprays into each nostril once daily nystatin-triamcinolone (MYCOLOG II) cream 0.5 gm, Topical, BID, # 30 gram(s), 0 Refill(s), Pharmacy: [facility] #[id number], 177.5, cm, 03/13/23 10:35:00 EDT, Height, 117.5 SUMAtriptan (IMITREX) 50 mg tablet TAKE 1 TABLET BY MOUTH EVERY 2 HOURS NEEDED FOR HEADACHE. MAX DOSE OF 2 TABLETS A DAY cyclobenzaprine (FLEXERIL) 10 mg tablet Take 10 mg by mouth three times daily. prn Insulin Eastman, Disposable, (BD ULTRAFINE III MINI PEN) 31 gauge x 3/16 Uses 4 per day with insulin injection E11.9 FREESTYLE LITE STRIPS test strip Use up to 3 daily to calibrate CGM or check blood sugar as needed. INSULIN USE, multiple injections. E11.9 sertraline (ZOLOFT) 25 mg tablet Take 25 mg by mouth once daily. loratadine 10 mg ORAL Cap Take by mouth. albuterol HFA 90 mcg/Actuation INHALATION inhaler Inhale 2 Puffs as instructed every 4 hours as needed for Wheezing/Shortness of Breath. ALBUTEROL SULFATE 2.5 MG/3 ML (0.083 %) NEB SOLUTION 1 nebule every 6 hours as needed for wheezing No current facility-administered medications for this visit. ALLERGIES Allergen Reactions Amoxicillin Unknown Penicillins Unknown Seasonal Allergies Other: See Comments sneezing, watery eyes, tired Zithromax [Azithrom* GI Upset REVIEW OF SYSTEMS - POSITIVES IN BOLD GENERAL:No weight loss, malaise or fevers HEENT:Negative for frequent or significant headaches, No changes in hearing or vision, no nose bleeds or other nasal problems NECK:Negative for lumps, goiter, pain and significant neck swelling RESPIRATORY: Negative for cough, hemoptysis, wheezing, COPD, dyspnea or shortness of breath CARDIOVASCULAR: Negative for chest pain, leg swelling, hypertension, CHF or palpitations PHYSICAL EXAMINATION: BP 140/90 Pulse 96 Temp 36.9 C (98.5 F) (Temporal Artery) Wt 129 kg (284 lb 6.4 oz) LMP 07/17/2023 (Approximate) SpO2 97% BMI 39.67 kg/m GENERAL: alert and appropriate, in no distress and well-hydrated, well nourished SKIN: no rash noted HEAD: normocephalic, no abnormality or lesion noted EYES: PERRL NECK: full ROM, no cervical LNs noted ACANTHOSIS: none noted EXTREMITIES: no edema NEUROLOGIC: no obvious deficit ASSESSMENT: (E11.65) Poorly controlled type 2 diabetes mellitus (HCC) (primary encounter diagnosis) CGM downloaded and reviewed for OV Recommendations per review and follows Comment: Recommend increase TRULICITY to 3 mg Cont with METFORMIN, cont with B12 RECOMMEND UPGRADE to [employer] JAZMIN 3 for accuracy CGM F/U in December 2023 with full labs Recommended diet: Low carbohydrate and Low saturated fat, low simple sugar, high fiber diet Exercise minimally 150 minutes per week, increase as tolerated. Adequate hydration - 1/2 body wgt in oz of water daily, unless fluid restriction applies. I instructed the patient to monitor blood sugars 4 times per day If blood sugars are persistently high or low, to call our office. Patient to continue to follow up with her PCP and with other consultants regarding her other medical problems. Plan: HEMOGLOBIN A1C (POC) Paige Muller CNP documented in this encounter [facility] 06-21-2023 Note HNO ID: [id number] Author: Paige Muller APRN.CNP Service: ? Author Type: Nurse Practitioner Type: Progress Notes Filed: 06/21/2023 12:45 PM Note Text: OFFICE VISIT PROGRESS NOTE CC Sugey West is a 22 year old female who presents today for blood sugar review, insulin dose review/adjust. HPI Diagnosed with pre diabetes age 16 Dx with DM2 2019 Last endocrine OV 05/17/2023 Some elements copied from my note 05/17/2023 which have been updated where appropriate, and all reflect current medical decision making from date of this visit. Hospitalized for possible DKA 14% Started on basal and prandial insulin 2019 through 10/2022 In October 2022, patient was using: LANTUS 30 units once daily HUMALOG 15 units with meals. States was taken off the insulin because she was at 5% A1C Previously on OMNIPOD DASH Wants to go back on pump system Since end of November 2022 sugars again elevated into the 300s Pt is modified her diet - more greens, etc Reports neuropathy bilateral feet Did not see DM education Was scheduled for ACL/meniscus needs less than 8% on her A1c Does use FREESTYLE JAZMIN CGM for BG Has not been able to schedule her thyroid ultrasound until this coming Monday. Reports leg cramping, all over cramping - wondering if insulin may be causing Patient was started on EMGALITY one month ago. With further questioning, patient confirms that cramping started with EMGALITY injection start Vit D/B12 was checked during her son hospitalization for DKA Vit D level was 49 B12 low, but in normal range 349 HPI 06/20/2023 Walking for exercise more No changes to nutrition at this time Cut excess sugars out - did increase her greens intake Reports her blood sugars have been much better Would like to start the GLP1 Initially denied for Jennifer singh was covered CURRENT DM MEDS HUMALOG plus SS#2 (uses ~ 4-6 extra units) TOUJEO units-300 inject 40 SMBG Freestyle jazmin Type of Monitor: Other Frequency of Monitorin times a day BG Values: Breakfast: 120-125 Lunch: 150-160 Dinner: 160-190 Bed-time: 150 Values over past week: Highest 253; Lowest 92 Hypoglycemia: no Diet: Low carbohydrate Exercise: walking DM REVIEW OF SYSTEMS Last Eye Exam : due Last Podiatry Exam: due Cardiorespiratory: negative, denies chest pain, pressure Claudication: no Dyslipidemia: No High Blood Pressure: yes, on medication CURRENT LABS Component Latest Ref Rng AND Units 04/05/2023 Glucose 74 - 99 mg/dL 235 (H) BUN 7 - 21 mg/dL 14 Creatinine 0.58 - 0.96 mg/dL 0.60 Sodium 136 - 144 mmol/L 139 Potassium 3.7 - 5.1 mmol/L 3.8 Chloride 97 - 105 mmol/L 102 CO2 22 - 30 mmol/L 24 Anion Gap 9 - 18 mmol/L 13 eGFR >=60 mL/min/1.73mA? 129 Total Cholesterol, Nonfasting <200 mg/dL 184 Triglycerides, Nonfasting <150 mg/dL 210 (H) HDL Cholesterol, Nonfasting >39 mg/dL 36 (L) LDL Cholesterol, Nonfasting <100 mg/dL 106 (H) Non HDL Cholesterol, Nonfasting <130 mg/dL 148 (H) VLDL Cholesterol, Nonfasting <30 mg/dL 42 (H) Total Chol/HDL Ratio, Nonfasting <5.10 mg/dL 5.11 (H) LDL/HDL Ratio, Nonfasting <2.54 mg/dL 2.94 (H) Creatinine, Ur Random (UCRR) 20.0 - 300.0 mg/dL 128.4 Albumin, Urine Random mg/L <12.0 Albumin/Creat Ratio <30 mg/g <9 Hemoglobin A1C 4.3 - 5.6 % 10.9 (H) Estimated Average Glucose mg/dL 266 Glutamic Acid Decarboxylas Ab Qualitative Negative Negative Glutamic Acid Decarboxylase Ab <=5.0 IU/mL <5.0 TSH 0.270 - 4.200 mIU/L 0.777 Free T4 0.9 - 1.7 ng/dL 1.0 Islet Cell Ab <1:4 <1:4 Microsomal Antibody <5.6 IU/mL 5.2 PAST MEDICAL HISTORY Diagnosis Date Depression Diabetes mellitus (HCC) Essential hypertension Generalized anxiety disorder NEGATIVE MEDICAL HISTORY 09/04/2010 normal color vision PMH - PAST MEDICAL HISTORY OF mother reports has had varicella at age 3-4 years PMH - PAST MEDICAL HISTORY OF intentional ingestion of 10 restoril tabs Post concussion syndrome d/t accident in 2021 Unspecified asthma(493.90) PAST SURGICAL HISTORY Procedure Laterality Date PAST SURGICAL HISTORY OF nose cauterized x 4 PAST SURGICAL HISTORY OF tubes in both ears TONSILLECTOMY AND ADENOIDECTOMY FAMILY HISTORY Problem Relation Age of Onset Hypertension Maternal Grandmother and degenerative disc disease Cataract Other other (mother [Other]) Other other (father [Other]) Other Social History Tobacco Use Smoking status: Never Passive exposure: Yes Smokeless tobacco: Never Tobacco comments: grandmother smokes - she is child's guardian Vaping Use Vaping Use: current everyday user Substances: Nicotine Substance Use Topics Alcohol use: No Drug use: No Current Outpatient Medications Medication Sig metFORMIN ER (GLUCOPHAGE XR) 500 mg 24 hr tablet Take 2 tabs with breakfast, 2 tabs with dinner cyanocobalamin (VITAMIN B-12) 1,000 mcg tab Take 1 tablet by mouth once da (more content not included)... [facility] 06-21-2023 History of Presen t illness Narrative OFFICE VISIT PROGRESS NOTE CC Sugey West is a 22 year old female who presents today for blood sugar review, insulin dose review/adjust. HPI Diagnosed with pre diabetes age 16 Dx with DM2 2019 Last endocrine OV 05/17/2023 Some elements copied from my note 05/17/2023 which have been updated where appropriate, and all reflect current medical decision making from date of this visit. Hospitalized for possible DKA 14% Started on basal and prandial insulin 2019 through 10/2022 In October 2022, patient was using: LANTUS 30 units once daily HUMALOG 15 units with meals. States was taken off the insulin because she was at 5% A1C Previously on OMNIPOD DASH Wants to go back on pump system Since end of November 2022 sugars again elevated into the 300s Pt is modified her diet - more greens, etc Reports neuropathy bilateral feet Did not see DM education Was scheduled for ACL/meniscus needs less than 8% on her A1c Does use FREESTYLE JAZMIN CGM for BG Has not been able to schedule her thyroid ultrasound until this coming Monday. Reports leg cramping, all over cramping - wondering if insulin may be causing Patient was started on EMGALITY one month ago. With further questioning, patient confirms that cramping started with EMGALITY injection start Vit D/B12 was checked during her son hospitalization for DKA Vit D level was 49 B12 low, but in normal range 349 HPI 06/20/2023 Walking for exercise more No changes to nutrition at this time Cut excess sugars out - did increase her greens intake Reports her blood sugars have been much better Would like to start the GLP1 Initially denied for Mendel singhulicity was covered CURRENT DM MEDS HUMALOG 22-22 plus SS#2 (uses ~ 4-6 extra units) TRINITYO units-300 inject 40 SMBG Freestyle jazmin Type of Monitor: Other Frequency of Monitorin times a day BG Values: Breakfast: 120-125 Lunch: 150-160 Dinner: 160-190 Bed-time: 150 Values over past week: Highest 253; Lowest 92 Hypoglycemia: no Diet: Low carbohydrate Exercise: walking DM REVIEW OF SYSTEMS Last Eye Exam : due Last Podiatry Exam: due Cardiorespiratory: negative, denies chest pain, pressure Claudication: no Dyslipidemia: No High Blood Pressure: yes, on medication CURRENT LABS Component Latest Ref Rng & Units 04/05/2023 Glucose 74 - 99 mg/dL 235 (H) BUN 7 - 21 mg/dL 14 Creatinine 0.58 - 0.96 mg/dL 0.60 Sodium 136 - 144 mmol/L 139 Potassium 3.7 - 5.1 mmol/L 3.8 Chloride 97 - 105 mmol/L 102 CO2 22 - 30 mmol/L 24 Anion Gap 9 - 18 mmol/L 13 eGFR >=60 mL/min/1.73m 129 Total Cholesterol, Nonfasting <200 mg/dL 184 Triglycerides, Nonfasting <150 mg/dL 210 (H) HDL Cholesterol, Nonfasting >39 mg/dL 36 (L) LDL Cholesterol, Nonfasting <100 mg/dL 106 (H) Non HDL Cholesterol, Nonfasting <130 mg/dL 148 (H) VLDL Cholesterol, Nonfasting <30 mg/dL 42 (H) Total Chol/HDL Ratio, Nonfasting <5.10 mg/dL 5.11 (H) LDL/HDL Ratio, Nonfasting <2.54 mg/dL 2.94 (H) Creatinine, Ur Random (UCRR) 20.0 - 300.0 mg/dL 128.4 Albumin, Urine Random mg/L <12.0 Albumin/Creat Ratio <30 mg/g <9 Hemoglobin A1C 4.3 - 5.6 % 10.9 (H) Estimated Average Glucose mg/dL 266 Glutamic Acid Decarboxylas Ab Qualitative Negative Negative Glutamic Acid Decarboxylase Ab <=5.0 IU/mL <5.0 TSH 0.270 - 4.200 mIU/L 0.777 Free T4 0.9 - 1.7 ng/dL 1.0 Islet Cell Ab <1:4 <1:4 Microsomal Antibody <5.6 IU/mL 5.2 PAST MEDICAL HISTORY Diagnosis Date Depression Diabetes mellitus (HCC) Essential hypertension Generalized anxiety disorder NEGATIVE MEDICAL HISTORY 09/04/2010 normal color vision PMH - PAST MEDICAL HISTORY OF mother reports has had varicella at age 3-4 years PMH - PAST MEDICAL HISTORY OF intentional ingestion of 10 restoril tabs Post concussion syndrome d/t accident in 2021 Unspecified asthma(493.90) PAST SURGICAL HISTORY Procedure Laterality Date PAST SURGICAL HISTORY OF nose cauterized x 4 PAST SURGICAL HISTORY OF tubes in both ears TONSILLECTOMY & ADENOIDECTOMY <AGE 10 FAMILY HISTORY Problem Relation Age of Onset Hypertension Maternal Grandmother and degenerative disc disease Cataract Other other (mother [Other]) Other other (father [Other]) Other Social History Tobacco Use Smoking status: Never Passive exposure: Yes Smokeless tobacco: Never Tobacco comments: grandmother smokes - she is child's guardian Vaping Use Vaping Use: current everyday user Substances: Nicotine Substance Use Topics Alcohol use: No Drug use: No Current Outpatient Medications Medication Sig metFORMIN ER (GLUCOPHAGE XR) 500 mg 24 hr tablet Take 2 tabs with breakfast, 2 tabs with dinner cyanocobalamin (VITAMIN B-12) 1,000 mcg tab Take 1 tablet by mouth once daily. insulin glargine U-300 conc (TOUJEO MAX U-300 SOLOSTAR) 300 unit/mL (3 mL) inpn Inject 40 units daily - can increase by 2 units each week until morning sugar 130 then stay at that dose cholecalciferol (VITAMIN D-3) 5,000 unit tab Take 1 tablet by mouth once daily. insulin lispro (HUMALOG KWIKPEN) 100 unit/mL INJECT 22 UNITS SUBCUTANEOUSLY WITH MEALS PLUS SLIDING SCALE #2 (2 EXTRA UNITS FOR EVERY 50 OVER 150) - 60 UNITS TDD galcanezumab-gnlm (EMGALITY SYRINGE) 120 mg/mL syringe Inject subcutaneously once every month. Do not shake. busPIRone (BUSPAR) 7.5 mg tablet 7.5 mg. FREESTYLE JAZMIN 2 SENSOR kit fluticasone (FLONASE) 50 mcg/actuation nasal spray place 2 sprays into each nostril once daily nystatin-triamcinolone (MYCOLOG II) cream 0.5 gm, Topical, BID, # 30 gram(s), 0 Refill(s), Pharmacy: [id number], 177.5, cm, 03/13/23 10:35:00 EDT, Height, 117.5 SUMAtriptan (IMITREX) 50 mg tablet TAKE 1 TABLET BY MOUTH EVERY 2 HOURS NEEDED FOR HEADACHE. MAX DOSE OF 2 TABLETS A DAY cyclobenzaprine (FLEXERIL) 10 mg tablet Take 10 mg by mouth three times daily. prn Insulin [place]man, Disposable, (BD ULTRAFINE III MINI PEN) 31 gauge x 3/16 Uses 4 per day with insulin injection E11.9 FREESTYLE LITE STRIPS test strip Use up to 3 daily to calibrate CGM or check blood sugar as needed. INSULIN USE, multiple injections. E11.9 sertraline (ZOLOFT) 25 mg tablet Take 25 mg by mouth once daily. loratadine 10 mg ORAL Cap Take by mouth. albuterol HFA 90 mcg/Actuation INHALATION inhaler Inhale 2 Puffs as instructed every 4 hours as needed for Wheezing/Shortness of Breath. ALBUTEROL SULFATE 2.5 MG/3 ML (0.083 %) NEB SOLUTION 1 nebule every 6 hours as needed for wheezing No current facility-administered medications for this visit. ALLERGIES Allergen Reactions Amoxicillin Unknown Penicillins Unknown Seasonal Allergies Other: See Comments sneezing, watery eyes, tired Zithromax [Azithrom* GI Upset REVIEW OF SYSTEMS - POSITIVES IN BOLD GENERAL:No weight loss, malaise or fevers HEENT:Negative for frequent or significant headaches, No changes in hearing or vision, no nose bleeds or other nasal problems NECK:Negative for lumps, goiter, pain and significant neck swelling RESPIRATORY: Negative for cough, hemoptysis, wheezing, COPD, dyspnea or shortness of breath CARDIOVASCULAR: Negative for chest pain, leg swelling, hypertension, CHF or palpitations PHYSICAL EXAMINATION: BP 138/84 Pulse 69 Ht 180.3 cm (5' 11 ) Wt 123.8 kg (273 lb) LMP 06/16/2023 (Exact Date) SpO2 95% BMI 38.08 kg/m GENERAL: alert and appropriate, in no distress, well-hydrated, well nourished, and happy, smiling, interactive SKIN: no rash noted HEAD: normocephalic, no abnormality or lesion noted EYES: PERRL NECK: full ROM, no cervical LNs noted ACANTHOSIS: none noted EXTREMITIES: normal NEUROLOGIC: no obvious deficit ASSESSMENT: (E11.65) Poorly controlled type 2 diabetes mellitus (HCC) (primary encounter diagnosis) Comment: Much improved on both reported BG readings AND A1C in office today 9.1 down from 10.9 Start TRULICITY 0.75 once weekly with plans to uptitrate dosing as tolerated, pt will notify us Needs to have her A1C under 8 for ortho surgery. REPEAT A1C July 22. Order placed for patient Recommended diet: Low carbohydrate and Low saturated fat, low simple sugar, high fiber diet Exercise minimally 150 minutes per week, increase as tolerated. Adequate hydration - 1/2 body wgt in oz of water daily, unless fluid restriction applies. I instructed the patient to monitor blood sugars 4 times per day If blood sugars are persistently high or low, to call our office. Patient to continue to follow up with her PCP and with other consultants regarding her other medical problems. Plan: COMP METABOLIC PANEL, LIPID PANEL, NONFASTING, ALBUMIN/CREAT RATIO RND UR, HGB A1C Paige Muller CNP documented in this encounter [facility] 05-30-2023 Miscellaneous Notes Phoned patient relayed message as below. Prior Auth sent for mounjaro electronically. Her thyroid ultrasound showed enlarged thyroid, but no nodules. I did send MOUNJARO for her, this is a once per week injectable, single use pen. Patient's request for medication is as follows Requested Prescriptions Signed Prescriptions Disp Refills tirzepatide (MOUNJARO) 2.5 mg/0.5 mL pen injector 4 Each 4 Sig: Inject 2.5 mg subcutaneously one time a week. Mónica Casiano MA Please call the patient. Her thyroid ultrasound showed enlarged thyroid, but no nodules. I did send MOUNJARO for her, this is a once per week injectable, single use pen. Patient's request for medication is as follows Requested Prescriptions Signed Prescriptions Disp Refills tirzepatide (MOUNJARO) 2.5 mg/0.5 mL pen injector 4 Each 4 Sig: Inject 2.5 mg subcutaneously one time a week. Order entered - please phone pharmacy and notify patient. Paige Muller APRN.CNP documented in this encounter [facility] 05-19-2023 Note HNO ID: [id number] Author: Colleen Wood RDMS Service: ? Author Type: Pleat Patternmaker Type: Progress Notes Filed: 05/19/2023 10:49 AM Note Text: Radiology Service Progress Note PATIENT NAME: Sugey West DATE OF SERVICE: May 19, 2023 TIME: 10:48 AM PATIENT IDENTITY VERIFICATION COMPLETED USING TWO (2) IDENTIFIERS: Name and Date of confirmed by patient verbally. FALL SCREENING: Has the patient had 2 falls in the last year or 1 fall with injury or currently using an Ambulatory Assistive Device (Walker, Cane, Wheelchair, Crutches, etc.)? No PATIENT GENDER DATA: Female. status: : No status: NO. PATIENT RELEVANT IMPLANT DATA REVIEWED: Not Applicable RADIOLOGY DEPARTMENT: Ultrasound PERIPHERAL IV DATA: Not applicable SIGNED BY: Colleen Wood RDMS May 19, 2023 10:48 AM [facility] 05-19-2023 History of Presen t illness Narrative Radiology Service Progress Note PATIENT NAME: Sugey West DATE OF SERVICE: May 19, 2023 TIME: 10:48 AM PATIENT IDENTITY VERIFICATION COMPLETED USING TWO (2) IDENTIFIERS: Name and Date of confirmed by patient verbally. FALL SCREENING: Has the patient had 2 falls in the last year or 1 fall with injury or currently using an Ambulatory Assistive Device (Walker, Cane, Wheelchair, Crutches, etc.)? No PATIENT GENDER DATA: Female. status: : No status: NO. PATIENT RELEVANT IMPLANT DATA REVIEWED: Not Applicable RADIOLOGY DEPARTMENT: Ultrasound PERIPHERAL IV DATA: Not applicable SIGNED BY: Colleen Wood RDMS May 19, 2023 10:48 AM documented in this encounter [facility] 05-17-2023 Note HNO ID: [id number] Author: Mónica Casiano Service: ? Author Type: ? Type: Progress Notes Filed: 05/17/2023 12:06 PM Note Text: [facility] 05-17-2023 Note HNO ID: [id number] Author: Paige Muller APRN.CNP Service: ? Author Type: Nurse Practitioner Type: Progress Notes Filed: 05/17/2023 10:07 AM Note Text: OFFICE VISIT PROGRESS NOTE CC Sugey West is a 22 year old female who presents today for blood sugar review. HPI diagnosed with pre diabetes age 16 Dx with DM2 2019 Last endocrine OV 04/05/2023 Some elements copied from my note 04/05/2023 which have been updated where appropriate, and all reflect current medical decision making from date of this visit. Hospitalized for possible DKA 14% Started on basal and prandial insulin 2019 through 10/2022 In October 2022, patient was using: LANTUS 30 units once daily HUMALOG 15 units with meals. States was taken off the insulin because she was at 5% A1C Previously on OMNIPOD DASH Wants to go back on pump system Since end of November 2022 sugars again elevated into the 300s Pt is modified her diet - more greens, etc Reports neuropathy bilateral feet Did not see DM education Was scheduled for ACL/meniscus needs less than 8% on her A1c Does use FREESTYLE JAZMIN CGM for BG Has not been able to schedule her thyroid ultrasound until this coming Monday. Reports leg cramping, all over cramping - wondering if insulin may be causing Patient was started on EMGALITY one month ago. With further questioning, patient confirms that cramping started with EMGALITY injection start Vit D/B12 was checked during her son hospitalization for DKA Vit D level was 49 B12 low, but in normal range 349 CURRENT DM MEDS HUMALOG 15-15-15 plus SS#2 (uses ~ 4-6 extra units) TOUJEO units-300 Inject 30 units daily SMBG Freestyle jazmin Type of Monitor: Other Frequency of Monitorin times a day BG Values: Breakfast: 250-300 Lunch: 200-350 Dinner: 250 Bed-time: 220-300 Values over past week: Highest 318; Lowest 180 Hypoglycemia: no Diet: Low carbohydrate Exercise: walking DM REVIEW OF SYSTEMS Last Eye Exam : due Last Podiatry Exam: due Cardiorespiratory: negative, denies chest pain, pressure Claudication: no Dyslipidemia: No High Blood Pressure: yes, on medication CURRENT LABS Component Latest Ref Rng AND Units 04/05/2023 Glucose 74 - 99 mg/dL 235 (H) BUN 7 - 21 mg/dL 14 Creatinine 0.58 - 0.96 mg/dL 0.60 Sodium 136 - 144 mmol/L 139 Potassium 3.7 - 5.1 mmol/L 3.8 Chloride 97 - 105 mmol/L 102 CO2 22 - 30 mmol/L 24 Anion Gap 9 - 18 mmol/L 13 eGFR >=60 mL/min/1.73mA? 129 Total Cholesterol, Nonfasting <200 mg/dL 184 Triglycerides, Nonfasting <150 mg/dL 210 (H) HDL Cholesterol, Nonfasting >39 mg/dL 36 (L) LDL Cholesterol, Nonfasting <100 mg/dL 106 (H) Non HDL Cholesterol, Nonfasting <130 mg/dL 148 (H) VLDL Cholesterol, Nonfasting <30 mg/dL 42 (H) Total Chol/HDL Ratio, Nonfasting <5.10 mg/dL 5.11 (H) LDL/HDL Ratio, Nonfasting <2.54 mg/dL 2.94 (H) Creatinine, Ur Random (UCRR) 20.0 - 300.0 mg/dL 128.4 Albumin, Urine Random mg/L <12.0 Albumin/Creat Ratio <30 mg/g <9 Hemoglobin A1C 4.3 - 5.6 % 10.9 (H) Estimated Average Glucose mg/dL 266 Glutamic Acid Decarboxylas Ab Qualitative Negative Negative Glutamic Acid Decarboxylase Ab <=5.0 IU/mL <5.0 TSH 0.270 - 4.200 mIU/L 0.777 Free T4 0.9 - 1.7 ng/dL 1.0 Islet Cell Ab <1:4 <1:4 Microsomal Antibody <5.6 IU/mL 5.2 PAST MEDICAL HISTORY Diagnosis Date Depression Diabetes mellitus (HCC) Essential hypertension Generalized anxiety disorder NEGATIVE MEDICAL HISTORY 09/04/2010 normal color vision PMH - PAST MEDICAL HISTORY OF mother reports has had varicella at age 3-4 years PMH - PAST MEDICAL HISTORY OF intentional ingestion of 10 restoril tabs Post concussion syndrome d/t accident in 2021 Unspecified asthma(493.90) PAST SURGICAL HISTORY Procedure Laterality Date PAST SURGICAL HISTORY OF nose cauterized x 4 PAST SURGICAL HISTORY OF tubes in both ears TONSILLECTOMY AND ADENOIDECTOMY FAMILY HISTORY Problem Relation Age of Onset Hypertension Maternal Grandmother and degenerative disc disease Cataract Other other (mother [Other]) Other other (father [Other]) Other Social History Tobacco Use Smoking status: Never Passive exposure: Yes Smokeless tobacco: Never Tobacco comments: grandmother smokes - she is child's guardian Vaping Use Vaping Use: current everyday user Substances: Nicotine Substance Use Topics Alcohol use: No Drug use: No Current Outpatient Medications Medication Sig insulin lispro (HUMALOG KWIKPEN) 100 unit/mL INJECT 15 UNITS SUBCUTANEOUSLY WITH MEALS PLUS SLIDING SCALE #2 (2 EXTRA UNITS FOR EVERY 50 OVER 150) - 60 UNITS TDD insulin lispro (HUMALOG KWIKPEN INSULIN) 100 unit/mL Inject 15 units with meals PLUS Sliding scale #2 (2 extra units for every 50 over 150) ~ TDD 60 units insulin glargine U-300 conc (TOUJEO MAX U-300 SOLOSTAR) 300 unit/mL (3 mL) inpn Inject 30 units daily - can increase by 2 units each week u (more content not included)... [facility] 05-17-2023 Instructions Paige Muller APRN.CNP - 05/17/2023 9:40 AM EDT TOUJEO Inject 40 units once daily HUMALOG Inject 22 units with meals PLUS SS#2 (PRE MEAL BLOOD SUGAR) Sliding Scale Insulin Dosing Sliding Scale 2 (2 units for every 50 mg/dL > 150 mg/dL) SUPPLEMENTAL INSULIN If Blood Glucose (mg/dL) is < 150 Give 0 units 151-200 Give 2 units 201-250 Give 4 units 251-300 Give 6 units 301-350 Give 8 units 351-400 Give 10 units >400 Give 12 units, call physician if blood glucose does not improve. documented in this encounter [facility] 05-17-2023 History of Presen t illness Narrative Images from the original note were not included. OFFICE VISIT PROGRESS NOTE MELISSA West is a 22 year old female who presents today for blood sugar review. HPI diagnosed with pre diabetes age 16 Dx with DM2 2019 Last endocrine OV 04/05/2023 Some elements copied from my note 04/05/2023 which have been updated where appropriate, and all reflect current medical decision making from date of this visit. Hospitalized for possible DKA 14% Started on basal and prandial insulin 2019 through 10/2022 In October 2022, patient was using: LANTUS 30 units once daily HUMALOG 15 units with meals. States was taken off the insulin because she was at 5% A1C Previously on OMNIPOD DASH Wants to go back on pump system Since end of November 2022 sugars again elevated into the 300s Pt is modified her diet - more greens, etc Reports neuropathy bilateral feet Did not see DM education Was scheduled for ACL/meniscus needs less than 8% on her A1c Does use FREESTYLE JAZMIN CGM for BG Has not been able to schedule her thyroid ultrasound until this coming Monday. Reports leg cramping, all over cramping - wondering if insulin may be causing Patient was started on EMGALITY one month ago. With further questioning, patient confirms that cramping started with EMGALITY injection start Vit D/B12 was checked during her son hospitalization for DKA Vit D level was 49 B12 low, but in normal range 349 CURRENT DM MEDS HUMALOG 15-15-15 plus SS#2 (uses ~ 4-6 extra units) TOUJEO units-300 Inject 30 units daily SMBG Freestyle jazmin Type of Monitor: Other Frequency of Monitorin times a day BG Values: Breakfast: 250-300 Lunch: 200-350 Dinner: 250 Bed-time: 220-300 Values over past week: Highest 318; Lowest 180 Hypoglycemia: no Diet: Low carbohydrate Exercise: walking DM REVIEW OF SYSTEMS Last Eye Exam : due Last Podiatry Exam: due Cardiorespiratory: negative, denies chest pain, pressure Claudication: no Dyslipidemia: No High Blood Pressure: yes, on medication CURRENT LABS Component Latest Ref Rng & Units 04/05/2023 Glucose 74 - 99 mg/dL 235 (H) BUN 7 - 21 mg/dL 14 Creatinine 0.58 - 0.96 mg/dL 0.60 Sodium 136 - 144 mmol/L 139 Potassium 3.7 - 5.1 mmol/L 3.8 Chloride 97 - 105 mmol/L 102 CO2 22 - 30 mmol/L 24 Anion Gap 9 - 18 mmol/L 13 eGFR >=60 mL/min/1.73m 129 Total Cholesterol, Nonfasting <200 mg/dL 184 Triglycerides, Nonfasting <150 mg/dL 210 (H) HDL Cholesterol, Nonfasting >39 mg/dL 36 (L) LDL Cholesterol, Nonfasting <100 mg/dL 106 (H) Non HDL Cholesterol, Nonfasting <130 mg/dL 148 (H) VLDL Cholesterol, Nonfasting <30 mg/dL 42 (H) Total Chol/HDL Ratio, Nonfasting <5.10 mg/dL 5.11 (H) LDL/HDL Ratio, Nonfasting <2.54 mg/dL 2.94 (H) Creatinine, Ur Random (UCRR) 20.0 - 300.0 mg/dL 128.4 Albumin, Urine Random mg/L <12.0 Albumin/Creat Ratio <30 mg/g <9 Hemoglobin A1C 4.3 - 5.6 % 10.9 (H) Estimated Average Glucose mg/dL 266 Glutamic Acid Decarboxylas Ab Qualitative Negative Negative Glutamic Acid Decarboxylase Ab <=5.0 IU/mL <5.0 TSH 0.270 - 4.200 mIU/L 0.777 Free T4 0.9 - 1.7 ng/dL 1.0 Islet Cell Ab <1:4 <1:4 Microsomal Antibody <5.6 IU/mL 5.2 PAST MEDICAL HISTORY Diagnosis Date Depression Diabetes mellitus (HCC) Essential hypertension Generalized anxiety disorder NEGATIVE MEDICAL HISTORY 09/04/2010 normal color vision PMH - PAST MEDICAL HISTORY OF mother reports has had varicella at age 3-4 years PMH - PAST MEDICAL HISTORY OF intentional ingestion of 10 restoril tabs Post concussion syndrome d/t accident in 2021 Unspecified asthma(493.90) PAST SURGICAL HISTORY Procedure Laterality Date PAST SURGICAL HISTORY OF nose cauterized x 4 PAST SURGICAL HISTORY OF tubes in both ears TONSILLECTOMY & ADENOIDECTOMY <AGE 10 FAMILY HISTORY Problem Relation Age of Onset Hypertension Maternal Grandmother and degenerative disc disease Cataract Other other (mother [Other]) Other other (father [Other]) Other Social History Tobacco Use Smoking status: Never Passive exposure: Yes Smokeless tobacco: Never Tobacco comments: grandmother smokes - she is child's guardian Vaping Use Vaping Use: current everyday user Substances: Nicotine Substance Use Topics Alcohol use: No Drug use: No Current Outpatient Medications Medication Sig insulin lispro (HUMALOG KWIKPEN) 100 unit/mL INJECT 15 UNITS SUBCUTANEOUSLY WITH MEALS PLUS SLIDING SCALE #2 (2 EXTRA UNITS FOR EVERY 50 OVER 150) - 60 UNITS TDD insulin lispro (HUMALOG KWIKPEN INSULIN) 100 unit/mL Inject 15 units with meals PLUS Sliding scale #2 (2 extra units for every 50 over 150) ~ TDD 60 units insulin glargine U-300 conc (TOUJEO MAX U-300 SOLOSTAR) 300 unit/mL (3 mL) inpn Inject 30 units daily - can increase by 2 units each week until morning sugar 130 then stay at that dose busPIRone (BUSPAR) 7.5 mg tablet 7.5 mg. Cholecalciferol, Vitamin D3, 50 mcg (2,000 unit) cap Take 1 capsule by mouth every afternoon. FREESTYLE JAZMIN 2 SENSOR kit fluticasone (FLONASE) 50 mcg/actuation nasal spray place 2 sprays into each nostril once daily nystatin-triamcinolone (MYCOLOG II) cream 0.5 gm, Topical, BID, # 30 gram(s), 0 Refill(s), Pharmacy: [facility] [facility] #[id number], 177.5, cm, 03/13/23 10:35:00 EDT, Height, 117.5 SUMAtriptan (IMITREX) 50 mg tablet TAKE 1 TABLET BY MOUTH EVERY 2 HOURS NEEDED FOR HEADACHE. MAX DOSE OF 2 TABLETS A DAY cyclobenzaprine (FLEXERIL) 10 mg tablet Take 10 mg by mouth three times daily. prn Insulin Eastman, Disposable, (BD ULTRAFINE III MINI PEN) 31 gauge x 3/16 Uses 4 per day with insulin injection E11.9 FREESTYLE LITE STRIPS test strip Use up to 3 daily to calibrate CGM or check blood sugar as needed. INSULIN USE, multiple injections. E11.9 sertraline (ZOLOFT) 25 mg tablet Take 25 mg by mouth once daily. loratadine 10 mg ORAL Cap Take by mouth. albuterol HFA 90 mcg/Actuation INHALATION inhaler Inhale 2 Puffs as instructed every 4 hours as needed for Wheezing/Shortness of Breath. ALBUTEROL SULFATE 2.5 MG/3 ML (0.083 %) NEB SOLUTION 1 nebule every 6 hours as needed for wheezing No current facility-administered medications for this visit. ALLERGIES Allergen Reactions Amoxicillin Unknown Penicillins Unknown Seasonal Allergies Other: See Comments sneezing, watery eyes, tired Zithromax [Azithrom* GI Upset REVIEW OF SYSTEMS - POSITIVES IN BOLD GENERAL:No weight loss, malaise or fevers HEENT:Negative for frequent or significant headaches, No changes in hearing or vision, no nose bleeds or other nasal problems NECK:Negative for lumps, goiter, pain and significant neck swelling RESPIRATORY: Negative for cough, hemoptysis, wheezing, COPD, dyspnea or shortness of breath CARDIOVASCULAR: Negative for chest pain, leg swelling, hypertension, CHF or palpitations PHYSICAL EXAMINATION: Pulse 68 Temp 36.4 C (97.6 F) (Temporal Artery) Ht 180.3 cm (5' 11 ) Wt 119.9 kg (264 lb 6.4 oz) LMP 04/18/2023 SpO2 96% BMI 36.88 kg/m GENERAL: alert and appropriate, in no distress and well-hydrated, well nourished SKIN: no rash noted HEAD: normocephalic, no abnormality or lesion noted EYES: PERRL NECK: full ROM, no cervical LNs noted ACANTHOSIS: none noted EXTREMITIES: normal NEUROLOGIC: no obvious deficit ASSESSMENT: (E11.8) Type II diabetes mellitus with manifestations (HCC) (primary encounter diagnosis) Comment: Consider addt of GLP1, however, will await results of thyroid study, pt has appt Monday. Per review of CGM (manual) recommendations are as below: START METFORMIN ER 500 mg 2 tab BID to decrease insulin resistance Start Vit D3 and B12 (due to Metformin use) TOUJEO Inject 40 units once daily HUMALOG Inject 22 units with meals PLUS SS#2 (PRE MEAL BLOOD SUGAR) Sliding Scale Insulin Dosing Sliding Scale 2 (2 units for every 50 mg/dL > 150 mg/dL) SUPPLEMENTAL INSULIN If Blood Glucose (mg/dL) is < 150 Give 0 units 151-200 Give 2 units 201-250 Give 4 units 251-300 Give 6 units 301-350 Give 8 units 351-400 Give 10 units >400 Give 12 units, call physician if blood glucose does not improve. Recommended diet: Low carbohydrate and Low saturated fat, low simple sugar, high fiber diet Exercise minimally 150 minutes per week, increase as tolerated. Adequate hydration - 1/2 body wgt in oz of water daily, unless fluid restriction applies. I instructed the patient to monitor blood sugars 4 times per day If blood sugars are persistently high or low, to call our office. Patient to continue to follow up with her PCP and with other consultants regarding her other medical problems. Plan: COMP METABOLIC PANEL, LIPID PANEL, NONFASTING, ALBUMIN/CREAT RATIO RND UR, HGB A1C Paige Muller CNP documented in this encounter [facility] 04-09-2023 Miscellaneous Notes Please call the patient. Her antibodies are negative. She is confirmed TYPE 2 diabetes. This is treated with lifestyle changes - healthy diet, exercise, weight loss and medications. She can use insulin initially to get her control, but she has options for oral medications in combination with lifestyle changes. I would like for her to see DM education. Order had been placed for her. documented in this encounter [facility] 04-05-2023 Note HNO ID: [id number] Author: Mónica Casiano Service: ? Author Type: ? Type: Progress Notes Filed: 04/06/2023 4:40 PM Note Text: [facility] 04-05-2023 Note HNO ID: [id number] Author: Paige Muller APRN.CNP Service: ? Author Type: Nurse Practitioner Type: Progress Notes Filed: 04/06/2023 4:40 PM Note Text: NEW CONSULT OFFICE PROGRESS NOTE Reason for Consultation: DM Type 2 Referring Physician: SELF My final recommendations will be communicated back to the requesting physician by way of shared Medical record or letter via [place] mail. HISTORY OF PRESENT ILLNESS; Sugey West is a 22 year old FEMALE is presenting as a new patient to me regarding DM Type 2. She was initially diagnosed with diabetes in pre diabetes age 16 Dx with DM2 2019 Hospitalized for possible DKA 14% Started on basal and prandial insulin 2019 through 10/2022 In October 2022, patient was using: LANTUS 30 units once daily HUMALOG 15 units with meals. States was taken off the insulin because she was at 5% A1C Previously on OMNIPOD DASH Wants to go back on pump system Since end of November 2022 sugars again elevated into the 300s Pt is modified her diet - more greens, etc Reports neuropathy bilateral feet She does have a family history of diabetes mellitus in her Grandparents. Maternal The patient reports the following microvascular complications: peripheral neuropathy. Sugey has no know macrovascular complications of diabetes.. DM Education No Knows how to carb count No DIETARY HISTORY: Breakfast: skip IF eating, eggs, sausage and toast (2) water Lunch water, now eating more salads, previously, fast food, frozen preprocessed Dinner same as lunch Snacks none Drinks water, gatorade zero, OJ or apple juice Exercise: walking CURRENT DM MEDS Previously on insulin, basal/prandial following initial dx, 2019, taken off Oct 2022 SMBG Type of Monitor: Other Frequency of Monitoring: FREESTYLE JAZMIN times a day BG Values: Hypoglycemia: no Diet: Low carbohydrate Exercise: walking DM REVIEW OF SYSTEMS Last Eye Exam : due Last Podiatry Exam: due Cardiorespiratory: negative, denies chest pain, pressure Claudication: no Dyslipidemia: No High Blood Pressure: yes, on medication CURRENT LABS none PAST MEDICAL HISTORY Diagnosis Date NEGATIVE MEDICAL HISTORY 2010 normal color vision PMH - PAST MEDICAL HISTORY OF mother reports has had varicella at age 3-4 years PMH - PAST MEDICAL HISTORY OF intentional ingestion of 10 restoril tabs Unspecified asthma(493.90) PAST SURGICAL HISTORY Procedure Laterality Date PAST SURGICAL HISTORY OF nose cauterized x 4 PAST SURGICAL HISTORY OF tubes in both ears TONSILLECTOMY AND ADENOIDECTOMY FAMILY HISTORY Problem Relation Age of Onset Hypertension Maternal Grandmother and degenerative disc disease Cataract Other other (mother [Other]) Other other (father [Other]) Other Social History Tobacco Use Smoking status: Passive Smoke Exposure - Never Smoker Smokeless tobacco: Never Tobacco comments: grandmother smokes - she is child's guardian Substance Use Topics Alcohol use: No Drug use: No Current Outpatient Medications Medication Sig LORazepam (ATIVAN) 1 mg tablet Take 1 mg by mouth every 6 hours as needed. sertraline (ZOLOFT) 25 mg tablet Take 25 mg by mouth once daily. BALZIVA, 28, 0.4-35 mg-mcg per tablet take 1 tablet by mouth once daily COMPOUNDED PRESCRIPTION CONTROL loratadine 10 mg ORAL Cap Take by mouth. albuterol HFA 90 mcg/Actuation INHALATION inhaler Inhale 2 Puffs as instructed every 4 hours as needed for Wheezing/Shortness of Breath. ALBUTEROL SULFATE 2.5 MG/3 ML (0.083 %) NEB SOLUTION 1 nebule every 6 hours as needed for wheezing No current facility-administered medications for this visit. ALLERGIES Allergen Reactions Seasonal Allergies Other: See Comments sneezing, watery eyes, tired Zithromax [Azithrom* GI Upset REVIEW OF SYSTEMS - POSITIVES IN BOLD GENERAL:No weight loss, malaise or fevers HEENT:Negative for frequent or significant headaches, No changes in hearing or vision, no nose bleeds or other nasal problems NECK:Negative for lumps, goiter, pain and significant neck swelling RESPIRATORY: Negative for cough, hemoptysis, wheezing, COPD, dyspnea or shortness of breath CARDIOVASCULAR: Negative for chest pain, leg swelling, hypertension, CHF or palpitations PHYSICAL EXAMINATION: BP 112/82 (BP Site: Right Arm, BP Position: Sitting, BP Cuff Size: Extra Large Adult) Pulse 68 Resp 14 Ht 180.3 cm (5' 11 ) Wt 122 kg (269 lb) LMP 12/05/2012 BMI 37.52 kg/m? General appearance: Well appearing, alert, in no acute distress, well-hydrated, well nourished. and Morbidly obese Skin: Skin color, texture, turgor normal, no suspicious rashes or lesions Head: Normocephalic, no masses, lesions, tenderness or abnormalities Eyes: LINDA Neck: thyroid enlarged, no distinct nodule palpated, ~28 grams size Acanthosis: moderate Extremities: Edema: none Neuro: Negative., Oriented X 3 ASSESSMENT: (E (more content not included)... [facility] 04-05-2023 Miscellaneous Notes [facility] called and they need clarification on the Humalog quick pen. Please advise documented in this encounter [facility] 04-05-2023 Instructions Paige Muller APRN.EVA - 04/05/2023 2:54 PM EDT Sliding Scale Insulin Dosing Sliding Scale 2 (2 units for every 50 mg/dL > 150 mg/dL) SUPPLEMENTAL INSULIN If Blood Glucose (mg/dL) is < 150 Give 0 units 151-200 Give 2 units 201-250 Give 4 units 251-300 Give 6 units 301-350 Give 8 units 351-400 Give 10 units >400 Give 12 units, call physician if blood glucose does not improve. documented in this encounter [facility] 04-05-2023 History of Presen t illness Narrative Images from the original note were not included. Images from the original note were not included. NEW CONSULT OFFICE PROGRESS NOTE Reason for Consultation: DM Type 2 Referring Physician: SELF My final recommendations will be communicated back to the requesting physician by way of shared Medical record or letter via [place] mail. HISTORY OF PRESENT ILLNESS; Sugey West is a 22 year old FEMALE is presenting as a new patient to me regarding DM Type 2. She was initially diagnosed with diabetes in pre diabetes age 16 Dx with DM2 2020 Hospitalized for possible DKA 14% Started on basal and prandial insulin 2019 through 10/2022 In October 2022, patient was using: LANTUS 30 units once daily HUMALOG 15 units with meals. States was taken off the insulin because she was at 5% A1C Previously on OMNIPOD DASH Wants to go back on pump system Since end of November 2022 sugars again elevated into the 300s Pt is modified her diet - more greens, etc Reports neuropathy bilateral feet She does have a family history of diabetes mellitus in her Grandparents. Maternal The patient reports the following microvascular complications: peripheral neuropathy. Sugey has no know macrovascular complications of diabetes.. DM Education No Knows how to carb count No DIETARY HISTORY: Breakfast: skip IF eating, eggs, sausage and toast (2) water Lunch water, now eating more salads, previously, fast food, frozen preprocessed Dinner same as lunch Snacks none Drinks water, gatorade zero, OJ or apple juice Exercise: walking CURRENT DM MEDS Previously on insulin, basal/prandial following initial , 2019, taken off Oct 2022 SMBG Type of Monitor: Other Frequency of Monitoring: FREESTYLE JAZMIN times a day BG Values: Hypoglycemia: no Diet: Low carbohydrate Exercise: walking DM REVIEW OF SYSTEMS Last Eye Exam : due Last Podiatry Exam: due Cardiorespiratory: negative, denies chest pain, pressure Claudication: no Dyslipidemia: No High Blood Pressure: yes, on medication CURRENT LABS none PAST MEDICAL HISTORY Diagnosis Date NEGATIVE MEDICAL HISTORY 2010 normal color vision PMH - PAST MEDICAL HISTORY OF mother reports has had varicella at age 3-4 years PMH - PAST MEDICAL HISTORY OF intentional ingestion of 10 restoril tabs Unspecified asthma(493.90) PAST SURGICAL HISTORY Procedure Laterality Date PAST SURGICAL HISTORY OF nose cauterized x 4 PAST SURGICAL HISTORY OF tubes in both ears TONSILLECTOMY & ADENOIDECTOMY <AGE 10 FAMILY HISTORY Problem Relation Age of Onset Hypertension Maternal Grandmother and degenerative disc disease Cataract Other other (mother [Other]) Other other (father [Other]) Other Social History Tobacco Use Smoking status: Passive Smoke Exposure - Never Smoker Smokeless tobacco: Never Tobacco comments: grandmother smokes - she is child's guardian Substance Use Topics Alcohol use: No Drug use: No Current Outpatient Medications Medication Sig LORazepam (ATIVAN) 1 mg tablet Take 1 mg by mouth every 6 hours as needed. sertraline (ZOLOFT) 25 mg tablet Take 25 mg by mouth once daily. BALZIVA, 28, 0.4-35 mg-mcg per tablet take 1 tablet by mouth once daily COMPOUNDED PRESCRIPTION CONTROL loratadine 10 mg ORAL Cap Take by mouth. albuterol HFA 90 mcg/Actuation INHALATION inhaler Inhale 2 Puffs as instructed every 4 hours as needed for Wheezing/Shortness of Breath. ALBUTEROL SULFATE 2.5 MG/3 ML (0.083 %) NEB SOLUTION 1 nebule every 6 hours as needed for wheezing No current facility-administered medications for this visit. ALLERGIES Allergen Reactions Seasonal Allergies Other: See Comments sneezing, watery eyes, tired Zithromax [Azithrom* GI Upset REVIEW OF SYSTEMS - POSITIVES IN BOLD GENERAL:No weight loss, malaise or fevers HEENT:Negative for frequent or significant headaches, No changes in hearing or vision, no nose bleeds or other nasal problems NECK:Negative for lumps, goiter, pain and significant neck swelling RESPIRATORY: Negative for cough, hemoptysis, wheezing, COPD, dyspnea or shortness of breath CARDIOVASCULAR: Negative for chest pain, leg swelling, hypertension, CHF or palpitations PHYSICAL EXAMINATION: BP 112/82 (BP Site: Right Arm, BP Position: Sitting, BP Cuff Size: Extra Large Adult) Pulse 68 Resp 14 Ht 180.3 cm (5' 11 ) Wt 122 kg (269 lb) LMP 12/05/2012 BMI 37.52 kg/m General appearance: Well appearing, alert, in no acute distress, well-hydrated, well nourished. and Morbidly obese Skin: Skin color, texture, turgor normal, no suspicious rashes or lesions Head: Normocephalic, no masses, lesions, tenderness or abnormalities Eyes: LINDA Neck: thyroid enlarged, no distinct nodule palpated, ~28 grams size Acanthosis: moderate Extremities: Edema: none Neuro: Negative., Oriented X 3 ASSESSMENT: (E11.8) Type II diabetes mellitus with manifestations (HCC) (primary encounter diagnosis) Comment: CGM downloaded and reviewed during OV Recommendations per CGM review as follows: Rule out type 1 status. Patient modified her diet, sugars remain very elevated. DO LABS ON WAY OUT. AWAIT RESULTS. RESTART BASAL/PRANDIAL insulin - will start with insulin dosing that patient was previously using in October. Patient is interested in possible insulin pump therapy. Will await labs for antibodies Toujeo 30 units once daily, can increased by 2 units every 3-4 days until morning fasting sugar is 130 then stay at that dose. HUMALOG 15 units with meals plus SS#2 pre meal blood sugar CONSULT TO DM ED Recommended diet: Low carbohydrate and Low saturated fat, low simple sugar, high fiber diet Exercise minimally 150 minutes per week, increase as tolerated. Adequate hydration - 1/2 body wgt in oz of water daily, unless fluid restriction applies. I instructed the patient to monitor blood sugars 4 times per day If blood sugars are persistently high or low, to call our office. Patient to continue to follow up with her PCP and with other consultants regarding her other medical problems. Plan: CONSULT TO DIABETES EDUCATION DSME/MNT, COMP METABOLIC PANEL, LIPID PANEL, NONFASTING, ALBUMIN/CREAT RATIO RND UR, HGB A1C, TSH BLD, T4 FREE/FREE THYROX, GLUTAMIC AC DECARBOXYLASE AB, ISLET CELL AB, THYROID PEROXIDASE ANTIBODY BLOOD, US THYROID/PARATHYROID (E04.9) Goiter Comment: do labs on way out for thyroid, please schedule for THYROID ULTRASOUND. Order placed for patient Plan: US THYROID/PARATHYROID Paige Muller CNP documented in this encounter [facility] 04-05-2023 Nurse Note Patient presents with: Diabetes: Type II Neuropathy AMB ROOMING INTAKE FLOWSHEET DATA Risk Screening Do you have concerns about personal safety or safety in the home?: No Pain Pain Location: Other: See Comment (Bilateral feet and hands) Description: Tingling Duration Units: Months Frequency: Continuous Type II DM using Freestyle Jazmin sensors documented in this encounter [facility] 03-14-2023 Note . MICRO - Microbiology PROCEDURE: Urine Culture [*1] SOURCE: Urine BODY SITE: COLLECTED DATE/TIME: 03/13/2023 11:09 EDT RECEIVED DATE/TIME: 03/13/2023 18:59 EDT START DATE/TIME: 03/13/2023 18:59 EDT FREE TEXT SOURCE: FINAL REPORTS Final Report [] Verified Date/Time/Personnel: 03/14/2023 15:00 EDT >100,000 cfu/ml Mixed growth consistent with normal urogenital paty. Including >100,000 cfu/ml Group B Beta Hemolytic Strep (Strep agalactiae) Sensitivity testing is not recommended for one of the following reasons: 1. Established susceptibility patterns are available or 2. Interpretative criteria are not available. Performing Locations *1: This test was performed at: [facility], [address] [place] [address], [phone] , [place] [facility] ([place]) 03-13-2023 Evaluation + Plan note Diagnostic Tests PendingHPV Screen, DNA Probe 03/13/23 [facility] 12-09-2022 Note ORIGINAL EXAMINATION: THREE XRAY VIEWS OF THE RIGHT KNEE 12/09/2022 4:01 pm COMPARISON: Right knee x-ray 07/10/2022 HISTORY: ORDERING SYSTEM PROVIDED HISTORY: Reason for Exam: pain. Popped knee today, unable to bear weight. FINDINGS: There appears to be mild deformity to the lateral femoral condyle which may be from lateral patellar subluxation injury. This appears similar to prior studies and may be just related to patient positioning. No evidence of dislocation. The patella appears to be in appropriate position. No large joint effusion or significant soft tissue swelling. IMPRESSION: Question mild deformity of the lateral femoral condyle which appears similar to prior studies and may represent a chronic injury from lateral patellar dislocation or may be related to patient positioning. No evidence of acute fracture. Recommend correlation with patient's history and point tenderness. I have personally reviewed the images of this examination, and agree with the resident's findings and interpretation. Interpreted by: Art Merino MD Preliminary Report By: Torrey Larsen Electronically signed By Art Merino MD Dictated Date: 12/09/2022 4:11:49 PM Prelim Date: 12/09/2022 5:11:23 PM Sign Date: 12/09/2022 11:57:33 PM Ordering Provider: SPRING [facility]AN[facility] 12-09-2022 Hospital Discharg e instructions Patient Education 12/09/2022 17:07:27 Knee Immobilizer Knee Immobilizer A knee immobilizer is a type of brace used to provide support and limit movement of the knee. This will make you more comfortable as your injury heals. Home care The knee brace should be worn whenever you are out of bed, unless told otherwise. You may wear it in bed while asleep for the first few nights or until the pain starts to go away. Otherwise, you can remove the brace at night to avoid muscle stiffness from lack of joint movement. You can open the [id number] brace to dress, bathe, and apply ice or heat packs as directed. Call 911 Call 911 if you have: Shortness of breath Chest pain When to seek medical advice Call your healthcare provider right away if any of these occur: Worsening pain in the knee Weakness, numbness, or tingling in the foot Increased swelling, redness or warmth of the knee joint [id number] [employer]. [address] [place] [address], [place] [address]. All rights reserved. This information is not intended as a substitute for professional medical care. Always follow your healthcare professional's instructions. 12/09/2022 17:07:19 Using Crutches: Up and Down Steps Using Crutches: Up and Down Steps When climbing up and down steps, remember this rule: Up with the good (unaffected leg) and down with the bad (affected leg). Note: If you re supposed to keep all weight off your leg (non weight-bearing), ask your healthcare provider for special instructions. Tip: Ask a friend to carry one of your crutches while you climb or descend stairs. Precautions for using stairs Always use an elevator if one is available. Have someone guard you as you learn to use stairs. A guard stands below you. He or she holds your belt (or a special gait belt you can borrow or buy) to assist you if you lose your balance. When there is no handrail, keep one crutch under each arm. Follow the instructions above. If the stairs are slippery or steep, it may be safer to lift or lower yourself from step to step while sitting. Hold both your crutches in one hand as you do so. Up stairs Hold the handrail with one hand. If a friend is not available to carry one of the crutches, put both crutches in your other hand. Support your weight evenly between the handrail and your crutches. Put some weight on the crutches. Step up with your unaffected foot. Get your balance. Straighten your unaffected knee and lift your body weight. Bring your crutches and affected leg up. Down stairs Hold the handrail with one hand. If a friend is not available to carry one of the crutches, put both crutches in your other hand. Bend your unaffected knee, moving your crutches and affected leg down. Support your weight evenly between the handrail and your crutches. Slowly bring your unaffected leg down. Don t hop. [id number] [employer] [address] [place] [address]. All rights reserved. This information is not intended as a substitute for professional medical care. Always follow your healthcare professional's instructions. 12/09/2022 17:07:17 Using Crutches: Sitting, Standing, Through Doors Using Crutches: Sitting, Standing, Through Doors These instructions will help you get around while on crutches. Sitting down 1. Back up until you feel the chair with the back of your leg. Hold both crutches in the hand on your affected side. 2. Grab the armrest or the side of the chair with your free hand. 3. Lower yourself onto the front of the chair, then slide back. 4. To get up, reverse the 3 steps. Tip: Find sturdy, high-seated chairs with arms. If you must use a chair that swivels or has wheels, back it against something stable before you sit down. Getting into cars 1. Follow the first step above for sitting in a chair. Use the doorjamb or the dashboard for support as you lower yourself. Watch your head. Don t hold on to the car door, or it may close on you. 2. With your hands, lift your affected leg into the car. Or use your unaffected leg to hook your affected leg behind the ankle and lift it in. Through doors To push a door open, stand sideways and push the door open with your body. To pull a door open, stand to the side. Get your balance and pull the door fully open with your hand. Plant the tip of the nearest crutch inside the door to act as a doorstop. Leave the crutch in place until you ve walked through. Tip: Don't go through revolving doors. Instead, use entrances designed for disabled people. 5157-8106 [employer]. [address] [place] [address]. All rights reserved. This information is not intended as a substitute for professional medical care. Always follow your healthcare professional's instructions. 12/09/2022 17:07:16 Fitting Your Crutches Fitting Your Crutches Proper fitting helps you use your crutches safely and effectively. When fitting crutches, stand up straight and wear the shoes you will normally use to walk. If the crutches don t feel right, ask your healthcare provider, nurse, or physical therapist (PT) to check the fit. Getting to know your crutches Crutches are often used for injuries to the knee, ankle, foot, or hip. Using crutches requires good coordination, balance, and upper body strength. If you re using only one crutch, keep it on the unaffected (uninjured) side unless told otherwise. The crutches fit if: You can put 2 to 3 fingers between your armpit and the top of the axillary pad. Your arms are slightly bent at the elbows when your hands are on the handgrips. Your wrists are even with the handgrips when your arms hang at your sides. Precautions Crutches should have nonskid rubber tips to prevent slipping. Change tips that look worn. Don t let your armpits rest on the pads this can cause tingling, numbness, and loss of muscle strength in your arm. Don t use crutches that are too short, too long, or mismatched. They can cause back pain and falls. In wet weather, dry crutch tips when coming indoors. 2276-[address] [employer] [place], [place] [id number]. All rights reserved. This information is not intended as a substitute for professional medical care. Always follow your healthcare professional's instructions. 12/09/2022 17:07:12 Crutch Walking Crutch Walking Crutch adjustment Make sure the crutches you use are adjusted to fit you. When you stand, there should be room to fit 2 to 3 fingers between the top of the crutch and your armpit. Your elbow should be slightly bent when holding the hand brushing machine operator. When your arms hang down, the crutch handle should be at the top of your hip. Crutch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 stairs. Precautions for using stairs Always use an elevator if one is available. Have someone guard you as you learn to use stairs. A guard stands below you. He or she holds your belt (or a special gait belt you can borrow or buy) to assist you if you lose your balance. When there is no handrail, keep one crutch under each arm. Follow the instructions above. If the stairs are slippery or steep, it may be safer to lift or lower yourself from step to step while sitting. Hold both your crutches in one hand as you do so. Up stairs Hold the handrail with one hand. If a friend is not available to carry one of the crutches, put both crutches in your other hand. Support your weight evenly between the handrail and your crutches. Put some weight on the crutches. Step up with your unaffected foot. Get your balance. Straighten your unaffected knee and lift your body weight. Bring your crutches and affected leg up. Down stairs Hold the handrail with one hand. If a friend is not available to carry one of the crutches, put both crutches in your other hand. Bend your unaffected knee, moving your crutches and affected leg down. Support your weight evenly between the handrail and your crutches. Slowly bring your unaffected leg down. Don t hop. 4048-[address] [employer] [place], [place] [id number]. All rights reserved. This information is not intended as a substitute for professional medical care. Always follow your healthcare professional's instructions. Using Crutches: Sitting, Standing, Through Doors These instructions will help you get around while on crutches. Sitting down 1. Back up until you feel the chair with the back of your leg. Hold both crutches in the hand on your affected side. 2. Grab the armrest or the side of the chair with your free hand. 3. Lower yourself onto the front of the chair, then slide back. 4. To get up, reverse the 3 steps. Tip: Find sturdy, high-seated chairs with arms. If you must use a chair that swivels or has wheels, back it against something stable before you sit down. Getting into cars 1. Follow the first step above for sitting in a chair. Use the doorjamb or the dashboard for support as you lower yourself. Watch your head. Don t hold on to the car door, or it may close on you. 2. With your hands, lift your affected leg into the car. Or use your unaffected leg to hook your affected leg behind the ankle and lift it in. Through doors To push a door open, stand sideways and push the door open with your body. To pull a door open, stand to the side. Get your balance and pull the door fully open with your hand. Plant the tip of the nearest crutch inside the door to act as a doorstop. Leave the crutch in place until you ve walked through. Tip: Don't go through revolving doors. Instead, use entrances designed for disabled people. 4462-[address] [employer]. [address] [place] [address]. All rights reserved. This information is not intended as a substitute for professional medical care. Always follow your healthcare professional's instructions. Fitting Your Crutches Proper fitting helps you use your crutches safely and effectively. When fitting crutches, stand up straight and wear the shoes you will normally use to walk. If the crutches don t feel right, ask your healthcare provider, nurse, or physical therapist (PT) to check the fit. Getting to know your crutches Crutches are often used for injuries to the knee, ankle, foot, or hip. Using crutches requires good coordination, balance, and upper body strength. If you re using only one crutch, keep it on the unaffected (uninjured) side unless told otherwise. The crutches fit if: You can put 2 to 3 fingers between your armpit and the top of the axillary pad. Your arms are slightly bent at the elbows when your hands are on the handgrips. Your wrists are even with the handgrips when your arms hang at your sides. Precautions Crutches should have nonskid rubber tips to prevent slipping. Change tips that look worn. Don t let your armpits rest on the pads this can cause tingling, numbness, and loss of muscle strength in your arm. Don t use crutches that are too short, too long, or mismatched. They can cause back pain and falls. In wet weather, dry crutch tips when coming indoors. 1067-[address] [employer]. [address] [place] [address], [place] [address]. All rights reserved. This information is not intended as a substitute for professional medical care. Always follow your healthcare professional's instructions. Crutch Walking Crutch adjustment Make sure the crutches you use are adjusted to fit you. When you stand, there should be room to fit 2 to 3 fingers between the top of the crutch and your armpit. Your elbow should be slightly bent when holding the hand brushing machine operator. When your arms hang down, the crutch handle should be at the top of your hip. Crutch walking Place the crutches forward about 1 foot in front of you. The crutches should be a little farther apart than your body. Lean your weight forward as you push down on the hand brushing machine operator. Make sure your weight is on your hands and your strong leg, not your armpits. Let your body swing forward, landing on the strong leg. Move the crutches forward again. The crutch and your injured leg should move together. Going up steps with no handrails (Up with the good leg) With both crutches (under each armpit) on the same step as your feet, push down on the hand brushing machine operator. Balancing with very light pressure on the weak leg, let your hands support your weight. Raise your strong leg onto the next higher step. Transfer all your weight to your strong leg (still bent). Move the crutches up to the next step, next to your strong leg. Keep your weight evenly balanced on the two crutches and your strong leg. Straighten your strong knee as you raise your weak leg up to the next step. Going down steps with no handrails (Down with the bad leg) With both crutches (under each armpit) on the same step as your feet, push down on the hand brushing machine operator. Keep your weight evenly balanced on the two crutches and your strong leg. Bend your strong knee as you lower your weak leg down to the next step. Let your strong leg support you (still bent) as you move the crutches down next to the weak leg. Transfer your weight to your hands. Balance with very light pressure on your weak leg as you lower your strong leg next to your weak leg Going up steps with handrails (Up with the good leg) Face the stairs, holding the handrail with one hand. Place both crutches under your armpit on the opposite side. Push down on the hand brushing machine operator. Balancing with very light pressure on the weak leg, let your hands support your weight. Raise your strong leg onto the next higher step. Transfer all your weight to your strong leg (still bent) as you move the crutches up (while holding on to the handrail) to the next step next to the strong leg. Keep your weight evenly balanced on the handrail, the crutches (still under the same armpit opposite the handrail), and your strong leg. Straighten your strong knee as you raise the weak leg up to the next step. Going down steps with handrails (Down with the bad leg) Face the stairs, holding the handrail with one hand. Place both crutches under your armpit on the opposite side. Push down on the hand brushing machine operator. Balance your weight evenly on the crutches, handrail, and your strong leg. Then bend your strong knee as you lower the weak leg down to the next step. Let the handrail and your strong leg support you (still bent) as you move the crutches down alongside the weak leg. While holding on to the handrail and crutches (under the same armpit on the other side), transfer your weight to your hands, balancing with very light pressure on the weak leg as you lower your strong leg alongside your weak leg Tip: If you are worried about falling or you feel unsteady, try sitting when going up or down stairs instead. Sit on the bottom step and keep your injured leg out in front of you. Hold your crutches flat against the stairs. Then slide up to the next step on your bottom. Use your free hand and good leg for support. Face the same way when going down stairs. 2359-2358 [employer]. [address] [place] [address], [place] [address]. All rights reserved. This information is not intended as a substitute for professional medical care. Always follow your healthcare professional's instructions. Knee Sprain A sprain is an injury to the ligaments or capsule that holds a joint together. There are no broken bones. Most sprains take 3 to 6 weeks to heal. If it a severe sprain where the ligament is completely torn, it can take months to recover. Most knee sprains are treated with a splint, knee immobilizer brace, or elastic wrap for support. Severe sprains may rarely require surgery. Home care Stay off the injured leg as much as possible until you can walk on it without pain. If you have a lot of pain with walking, crutches or a walker may be prescribed. (These can be rented or purchased at many pharmacies and surgical or orthopedic supply stores). Follow your healthcare provider's advice about when to begin putting weight on that leg. Keep your leg elevated to reduce pain and swelling. When sleeping, place a pillow under the injured leg. When sitting, support the injured leg so it is above heart level. This is very important during the first 48 hours. Apply an ice pack over the injured area for 15 to 20 minutes every 3 to 6 hours. You should do this for the first 24 to 48 hours. You can make an ice pack by filling a plastic bag that seals at the top with ice cubes and then wrapping it with a thin towel. Continue to use ice packs for relief of pain and swelling as needed. As the ice melts, be careful to avoid getting your wrap, splint, or cast wet. After 48 hours, apply heat (warm shower or warm bath) for 15 to 20 minutes several times a day, or alternate ice and heat. You can place the ice pack directly over the splint. If you have to wear a jodv-spo-urjb knee brace, you can open it to apply the ice pack, or heat, directly to the knee. Never put ice directly on the skin. Always wrap the ice in a towel or other type of cloth. You may use uiih-pqu-egcvnsf pain medicine to control pain, unless another pain medicine was prescribed. If you have chronic liver or kidney disease or ever had a stomach ulcer or gastrointestinal bleeding, talk with your healthcare provider before using these medicines. If you were given a splint, keep it completely dry at all times. Bathe with your splint out of the water, protected with 2 large plastic bags, sealed with rubber bands or tape at the top end. If a fiberglass splint gets wet, you can dry it with a rolling chair pusher set to cool. If you have a osca-jeb-eovq knee brace, you can remove this to bathe, unless told otherwise. Follow-up care Follow up with your doctor as advised. Any X-rays you had today don t show any broken bones, breaks, or fractures. Sometimes fractures don t show up on the first X-ray. Bruises and sprains can sometimes hurt as much as a fracture. These injuries can take time to heal completely. If your symptoms don t improve or they get worse, talk with your doctor. You may need a repeat X-ray. If X-rays were taken, you will be told of any new findings that may affect your care. Call 911 Call 911 if you have: Shortness of breath Chest pain When to seek medical advice Call your healthcare provider right away if any of these occur: The splint or knee immobilizer brace becomes wet or soft The fiberglass cast or splint remains wet for more than 24 hours Pain or swelling increases The injured leg or toes become cold, blue, numb, or tingly [id number] [employer]. [address] [place] [address]. All rights reserved. This information is not intended as a substitute for professional medical care. Always follow your healthcare professional's instructions. Result type: XR Knee 3 Views Right Result date: December 09, 2022 16:01 EDT Result status: In Progress Result title: XR KNEE THREE VIEWS RIGHT Performed by: TORREY LARSEN DO on December 09, 2022 15:58 EDT Cosigned by: TORREY LARSEN DO Encounter info: [id number], [facility], Emergency, 12/09/2022 - Contributor system: [employer] * Preliminary Report * [id number] ORIGINAL EXAMINATION: THREE XRAY VIEWS OF THE RIGHT KNEE 12/09/2022 4:01 pm COMPARISON: Right knee x-ray 07/10/2022 HISTORY: ORDERING SYSTEM PROVIDED HISTORY: Reason for Exam: pain. Popped knee today, unable to bear weight. FINDINGS: There is deformity to the lateral femoral condyle likely from lateral patellar subluxation injury. This appears similar to prior studies. No evidence of dislocation. The patella appears to be in appropriate position. No large joint effusion or significant soft tissue swelling. 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 No evidence of acute fracture. Preliminary Report was Dictated by a Resident Preliminary Report By: Torrey Larsen Dictated Time: 12/09/2022 4:11:49 PM Prelim Time: 12/09/2022 4:17:03 PM Ordering Provider: [employer] This document has an image Document Released: 08/21/2006 Document Revised: 08/07/2013 Document Reviewed: 08/22/2014 ExitCare Patient Information 2015 [employer] [facility]. This information is not intended to replace advice given to you by your health care provider. Make sure you discuss any questions you have with your health care provider. Additional Information VACCINATE! IT SAVES LIVES! Members of the community who have not yet received the COVID-19 vaccine and would like to receive it can visit one of [facility] vaccine clinics. There are many vaccine clinic locations within the [facility]. For locations and available times, please visit [email or web address] It is important to note that some COVID mobile vaccine clinics are held outdoors and may be canceled in rainy or stormy conditions. To learn more about pediatric vaccinations (ages 5-11), we invite you to visit the [facility] webpage. [email or web address]/ [email or web address]-[email or web address] To learn more about the COVID-19 vaccine, we invite you to visit the CDC website for a list of frequently asked questions. https://www.cdc.gov/coronavirus /2019-ncov/vaccines/faq.html [facility] Patient Portal Access Instructions: Stay connected with your healthcare team and access your personal medical information anytime with the [facility] Patient Portal. If you would like a full copy of your medical records please contact the [facility] Medical Records Department Monday through Monday between 8a.m. and 4:30p.m. Please follow the directions below to access the portal: 1.Access the email account you provided upon registration to the [facility].2.Look for an invitation email from [facility].3.Open the email and access the invitation link: Accept Invitation to [employer]4.Fill in the required núñez to create your account. Sign into www.[employer] with your username and password that you created in the above steps to stay up to date. You can then view a summary of results, a summary of your visits, and the ability to download your summaries to your computer or send the information securely to a physician. Remember that your healthcare information is confidential, so carefully consider who you will allow to register on the [employer] Patient Portal for access to your information. You can also access the [employer] Patient Portal on the [employer]. Simply click on Health Records under [employer] and then click on the [employer] logo. HOW TO SAFELY DISPOSE OF PRESCRIPTION MEDICATIONS Please use one of the following methods to safely dispose of your unused medications. 1.Use a drug disposal kit: the drug disposal pouch allows you to safely discard your old and unused drugs. Ask your nurse to give you one when you are discharged.2.Visit a local take-back location: Many local pharmacies and police departments have programs that collect old and unwanted prescription drugs. Call your local pharmacy or go to http://[place]anberry/6O6Cv9q to find one close to you.3.Make use of household items: Use cat litter or old coffee grounds to dispose medications if other options are not available. Mix your drugs with these household products, seal them in an airtight container and throw it into the garbage. Call [facility]: [phone] to be sure your drugs can be disposed of in this way. Some medicines may require a different approach.4.Never flush your medications down the toilet. IF YOU HAVE BEEN PRESCRIBED AN OPIOIDS FOR PAIN If you have been prescribed an opioid (such as hydrocodone, oxycodone or morphine), it is critical to understand the possible side effects and risks of opioid pain medications. Even when taken as directed, opioids can have several side effects including: Tolerance, meaning you might need to take more of a medication for the same pain relief. Nausea, vomiting and/or constipation. Sleepiness, dizziness, dry mouth, confusion, depression or itching. Physical dependence, meaning you have withdrawal symptoms when a medication is stopped ? this can develop within a few days. KNOW YOUR RESPONSIBILITIES It is important to know exactly how much and how often to take the opioid pain medications you are prescribed. Never take opioids in higher amounts or more often than prescribed. Do not combine opioids with alcohol or other drugs that cause drowsiness, such as benzodiazepines, also known as benzos, including diazepam and alprazolam, muscle relaxants or sleep aids. Never sell or share prescription opioids. This is illegal. Store opioids in a secure place and out of reach of others (including children, family, friends and visitors). The last page(s) of this document has been signed and retained as a CHART COPY Signatures Patient Education Materials Knee Immobilizer Using Crutches: Up and Down Steps Using Crutches: Sitting, Standing, Through Doors Fitting Your Crutches Crutch Walking Knee Sprain AA Melissa PIZARRO (CUSTOM) Medication Leaflets naproxen My discharge plan and instructions have been reviewed and explained to me and I,SUGEY WEST understand my current condition and have read and understand these discharge instructions. I have received a written copy of the plan/instructions. If I have questions, I am aware that I should contact my doctor. 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 Popped knee today, unable to bear weight. FINDINGS: There appears to be mild deformity to the lateral femoral condyle which may be from lateral patellar subluxation injury. This appears similar to prior studies and may be just related to patient positioning. No evidence of dislocation. The patella appears to be in appropriate position. No large joint effusion or significant soft tissue swelling. IMPRESSION: Question mild deformity of the lateral femoral condyle which appears similar to prior studies and may represent a chronic injury from lateral patellar dislocation or may be related to patient positioning. No evidence of acute fracture. Recommend correlation with patient's history and point tenderness. I have personally reviewed the images of this examination, and agree with the resident's findings and interpretation. Interpreted by: Art Merino MD Preliminary Report By: Torrey Larsen Electronically signed By Art Merino MD Dictated Date: 12/09/2022 4:11:49 PM Prelim Date: 12/09/2022 5:11:23 PM Sign Date: 12/09/2022 11:57:33 PM Ordering Provider: [facility] 12-07-2022 Hospital Discharg e instructions Patient Education 12/07/2022 14:40:13 DYSPNEA Shortness of Breath (Dyspnea) Shortness of breath is the feeling that you can't catch your breath or can't get enough air. It is also known as dyspnea. Dyspnea can be caused by many different conditions. Here are some: Acute asthma attack Worsening of COPD, chronic bronchitis, or emphysema Congestive heart failure, or CHF. This is a weak heart muscle allows extra fluid to collect in the lungs. Panic attacks or anxiety. Fear can cause rapid breathing (hyperventilation). Pneumonia, or an infection in the lung tissue. Exposure to toxic substances, fumes, smoke, or certain medicines Blood clot in the lung (pulmonary embolus) Heart attack or angina Anemia Collapsed lung (pneumothorax) Dehydration Based on your visit today, the exact cause of your shortness of breath is not certain. Your tests don t show any of the serious causes of dyspnea. You may need other tests to find out if you have a serious problem. It s important to watch for any new symptoms or symptoms that get worse. Follow up with your doctor as directed. Home care Follow these tips to take care of yourself at home: When your symptoms are better, go back to your usual activities. If you smoke, you need to stop. Join a stop-smoking program or ask your doctor for help. Eat a healthy diet and get plenty of sleep. Get regular exercise. But talk with your doctor before starting to exercise, especially if you have other medical problems. Cut down on the amount of caffeine and stimulants you have. Follow-up care Follow up with your health care provider. If a culture was done, you will be told if your treatment needs to be changed. You can call in 2 to 3 days, or as directed, for the results. If X-rays were taken, and a radiologist did not see them while you were here, they will be reviewed. You will be told if there is a change in the reading, especially if it affects your treatment. When to call 911 Call 911 if any of these occur: You have trouble breathing You feel confused or it s difficult to wake you You faint or lose consciousness You have a rapid heart rate New pain in your chest, arm, shoulder, neck, or upper back When to seek medical advice Call your health care provider right away if any of these occur: Shortness of breath or wheezing that gets worse Redness, pain or swelling in one leg Swelling in both legs or ankles Unexpected weight gain Chest, arm, shoulder, neck, or upper back pain Dizziness or weakness The sense that your heart is fluttering, or beating fast or hard (palpitations) Fever of 100.4 F (38 C) or higher, or as directed by your health care provider Cough with dark-colored or bloody sputum (mucus) [id number] [employer]. [address] [place] [address], [place] [address]. All rights reserved. This information is not intended as a substitute for professional medical care. Always follow your healthcare professional's instructions. 12/07/2022 14:40:10 Understanding Dysphagia Understanding Dysphagia If you have a problem swallowing foods or liquids, you may have dysphagia. This condition has a number of causes. Your healthcare provider can find out what is causing your problem and help relieve your symptoms. When You Swallow Your tongue pushes foods or liquids from your mouth to your throat as you eat or drink and swallow. They then pass down the esophagus (a muscular tube) into the stomach. To keep foods or liquids moving, the esophagus muscles tighten and relax in wavelive motions. Causes of dysphagia With dysphagia, foods or liquids do not easily pass down the esophagus. Dysphagia may happen if the esophagus mayberry thicken, causing a narrowing (stricture) of the passage. Dysphagia can also be caused by any of the following: A problem in the esophagus, such as an ulcer, stricture, irritation, infection, inflammation, or cancer Muscles in your mouth, throat, or esophagus that don t work right or are not coordinated A nerve or brain problem (such as a stroke) that leaves your mouth, tongue, or throat muscles weak or changes how your muscles coordinate Common symptoms If you have dysphagia, you may: Feel chest pressure or pain when you swallow Choke or cough when swallowing Vomit after eating or drinking Regurgitate food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 manifestations (HCC) Procedures CONSULT TO NUTRITION THERAPY MEDICAL NUTRITION ASSMT&IVNTJ INDIV EACH 15 ND MEDICAL NUTRITION ASSMT&IVNTJ INDIV EACH 15 ND MEDICAL NUTRITION ASSMT&IVNTJ INDIV EACH 15 ND MEDICAL NUTRITION ASSMT&IVNTJ INDIV EACH 15 ND Paige Muller APRN.CNP [id number] [facility] [place] [id number] Referral ID Status Reason Start Date Expiration Date Visits Requested Visits Authorized [id number] Authorized PCP Requested Referral 05/17/2023 05/16/2024 1 1 Specialty Diagnoses / Procedures Referred By Contac t Referred To Contact Paige Muller APRN.PROJECT CONSTRUCTION MANAGER [address] [place] [address] Referral ID Status Reason Start Date Expiration Date Visits Re quested Visits Authorized [id number] Closed 1 1 Specialty Diagnoses / Procedures Referred By Contac t Referred To Contact US IMAGING Diagnoses Type II diabetes mellitus with manifestations (HCC) Procedures US THYROID/PARATHYROID US SOFT TISSUE HEAD & NECK REAL TIME IMGE DOCM Paige Muller, REVERSING MILL ROLLER.PROJECT CONSTRUCTION MANAGER [address] [place] [address] [facility] Referral ID Status Reason Start Date Expiration Date Visits Requested Visits Authorized [id number] Authorized Auto-Generat ed Referral 04/05/2023 05/04/2024 1 1 Specialty Diagnoses / Procedures Referred By Contac t Referred To Contact Diagnoses Type II diabetes mellitus with manifestations (HCC) Procedures CONSULT TO DIABETES EDUCATION DSME/MNT MEDICAL NUTRITION ASSMT&IVNTJ INDIV EACH 15 ND MEDICAL NUTRITION ASSMT&IVNTJ INDIV EACH 15 ND MEDICAL NUTRITION ASSMT&IVNTJ INDIV EACH 15 ND MEDICAL NUTRITION ASSMT&IVNTJ INDIV EACH 15 ND Paige Muller, REVERSING MILL ROLLER.PROJECT CONSTRUCTION MANAGER [address] [place] [address] Referral ID Status Reason Start Date Expiration Date Visits Requested Visits Authorized [id number] Authorized PCP Requested Referral 04/05/2023 04/04/2024 1 1 Additional Source Comments INFORMATION SOURCE (unrecogn ized section and content) DATE CREATED AUTHOR AUTHOR'S ORGANIZ ATION 03/23/2023 [facility] ([place]) DATE CREATED AUTHOR AUTHOR'S ORGANIZ ATION 09/16/2023 [facility] Care Team (unrecognized sect ion and content) Maintenance Mechanic 2Nd Shift Relationship Specialty Start Date End Date Eliazar Amos MD [address] [address] PCP - General Internal Medicine 04/05/23 Maintenance Mechanic 2Nd Shift Relationship Specialty Start Date End Date Eliazar Amos MD [address] [place] [address] PCP - General Internal Medicine 04/05/23 Maintenance Mechanic 2Nd Shift Relationship Specialty Start Date End Date Eliazar Amos MD [address] [place] [address] PCP - General Internal Medicine 04/05/23 Maintenance Mechanic 2Nd Shift Relationship Specialty Start Date End Date Eliazar Amos MD [address] [place] [address] PCP - General Internal Medicine 04/05/23 Maintenance Mechanic 2Nd Shift Relationship Specialty Start Date End Date Eliazar Amos MD [address] [place] [address] PCP - General Internal Medicine 04/05/23 Maintenance Mechanic 2Nd Shift Relationship Specialty Start Date End Date Eliazar Amos MD [address] [place] [address] PCP - General Internal Medicine 04/05/23 Maintenance Mechanic 2Nd Shift Relationship Specialty Start Date End Date Eliazar Amos MD [address] [place] [address] PCP - General Internal Medicine 04/05/23 Care Team (unrecognized sect ion and content) Care Team Personnel Name: ELIAZAR AMOS MD Member Role: Primary Care Physician Address: Address: [address] [place] [address]- Care Team Related Persons Name: DELORES WEST Care Team Personnel Name: ELIAZAR AMOS MD Member Role: Primary Care Physician Address: Address: [address] [place] [address]- [place] Name: DEAN LYON MD Position: ED Physician Member Role: ED Physician Address: Address: [address] [facility] [address] [place], [place] [address] Care Team Related Persons Name: DELORES WEST Source Comments (unrecognize d section and content) In the event this informatio n is protected by the Federal Confidentiality of Alcohol and Drug Abuse Patient Records regulations: The Federal rules restrict any use of the information to criminally investigate or prosecute any alcohol or drug abuse patient.[facility] the event this information is protected by the Federal Confidentiality of Alcohol and Drug Abuse Patient Records regulations: The Federal rules restrict any use of the information to criminally investigate or prosecute any alcohol or drug abuse patient.[facility] the event this information is protected by the Federal Confidentiality of Alcohol and Drug Abuse Patient Records regulations: The Federal rules restrict any use of the information to criminally investigate or prosecute any alcohol or drug abuse patient.[facility] the event this information is protected by the Federal Confidentiality of Alcohol and Drug Abuse Patient Records regulations: The Federal rules restrict any use of the information to criminally investigate or prosecute any alcohol or drug abuse patient.[facility] the event this information is protected by the Federal Confidentiality of Alcohol and Drug Abuse Patient Records regulations: The Federal rules restrict any use of the information to criminally investigate or prosecute any alcohol or drug abuse patient.[facility] the event this information is protected by the Federal Confidentiality of Alcohol and Drug Abuse Patient Records regulations: The Federal rules restrict any use of the information to criminally investigate or prosecute any alcohol or drug abuse patient.[facility] the event this information is protected by the Federal Confidentiality of Alcohol and Drug Abuse Patient Records regulations: The Federal rules restrict any use of the information to criminally investigate or prosecute any alcohol or drug abuse patient.[facility] the event this information is protected by the Federal Confidentiality of Alcohol and Drug Abuse Patient Records regulations: The Federal rules restrict any use of the information to criminally investigate or prosecute any alcohol or drug abuse patient.[facility] the event this information is protected by the Federal Confidentiality of Alcohol and Drug Abuse Patient Records regulations: The Federal rules restrict any use of the information to criminally investigate or prosecute any alcohol or drug abuse patient.[facility] Reason for Visit (unrecogniz ed section and content) Reason Comments Diabetes Type II Neuropathy Reason Comments Med Change Request Reason Comments Results Reason Comments type 2 diabetes Reason Comments type 2 diabetes Reason Comments Radiology US Specialty Diagnoses / Procedures Referred By Contac t Referred To Contact US IMAGING Diagnoses Type II diabetes mellitus with manifestations (HCC) Procedures US THYROID/PARATHYROID US SOFT TISSUE HEAD & NECK REAL TIME IMGE Paige Littlejohn, REVERSING MILL ROLLER.PROJECT CONSTRUCTION MANAGER [address] [place] [address] [place] [id number] Referral ID Status Reason Start Date Expiration Date V isits Requested Visits Authorized [id number] Closed Auto-Generate d Referral 04/05/2023 05/04/2024 1 1 Reason Comments type 2 diabetes Reporting low sugar events FOR RECORDS PERTAINING TO PATIENTS WHO ARE OR HAVE BEEN ENROLLED IN A CHEMICAL DEPENDENCY/SUBSTANCEABUSE PROGRAM, SOME INFORMATION MAY BE OMITTED. This clinical summary was aggregated from multiple sources. Caution should be exercised in using it in the provision of clinical care. This summary normalizes information from multiple sources, and as a consequence, information in this document may materially change the coding, format and clinical context of patient data. In addition, data may be omitted in some cases. CLINICAL DECISIONS SHOULD BE BASED ON THE PRIMARY CLINICAL RECORDS. [employer] [facility]. provides no warranty or guarantee of the accuracy or completeness of information in this document.
--- NOTE | 2023-09-27 11:53 | NEURO ---
NCS and/or EMG Patient Report Ordering Doctor: Indio Olivares DATE OF SERVICE: 09/27/23 Clinical Summary: This is a 22 year old female patient presenting with symptoms of numbness that runs from the elbow along the medial region of the forearm to the left hand. This EMG/NCS was performed to evaluate for left ulnar mononeuropathy. Nerve Conduction Studies Summary: The left median motor conduction velocity was reduced in the forearm segment. Otherwise, nerve conduction studies were normal. Needle Examination Summary: Needle examination of select muscles of the left upper extremity was normal. Impression: There is no electrodiagnostic evidence of a left ulnar mononeuropathy or median mononeuropathy at the wrist (carpal tunnel syndrome). Multi Select Codes Neurology Neurology Interp Codes: 84190-42 Musc test done w/n test comp (interp) (1) and 43551-58 Nrv cndj test 7-8 studies (interp)
== END | disposition home or self-care (01) ==
LOC: PSN 10:44
PROVIDERS: PCP Internal Medicine; Referring Provider Orthopaedic Surgery Sports Medicine; Visit Provider Orthopaedic Surgery Sports Medicine
DX: G56.22 Lesion of ulnar nerve, left upper limb (principal)
CPT/HCPCS: 95886; 95910

== ENCOUNTER → 2023-10-12 | Outpatient (CLI) | payer MEDICAID, SELFPAY ==
[2023-10-12 17:18] LABS: T4 Free Direct 0.88 ng/dL (0.76-1.46); Thyroid Stim Hormone (TSH) 0.87 uIU/mL (0.358-3.74)
== END | disposition home or self-care (01) ==
LOC: BIMLAB 14:42
PROVIDERS: PCP Internal Medicine; Visit Provider Internal Medicine
DX: Z13.29 Encounter for screening for other suspected endocrine disorder (principal)
CPT/HCPCS: 36415; 84439; 84443

== ENCOUNTER 2023-11-22 08:33 | Day surgery (SDC) | payer MEDICAID, SELFPAY ==
[2023-11-22] VITALS (13 sets, daily range): BP systolic 103–150; BP diastolic 84–100; PULSE 89–107; RESP 16–22; TEMP 36.2–36.9; O2SAT 91–99; BMI 41.3
--- NOTE | 2023-11-22 08:42 | EKG12_ITS ---
Test Reason : PRE OP Blood Pressure : / mmHG Vent. Rate : 088 BPM Atrial Rate : 088 BPM P-R Int : 168 ms QRS Dur : 094 ms QT Int : 380 ms P-R-T Axes : 067 055 042 degrees QTc Int : 459 ms Normal sinus rhythm Normal ECG When compared with ECG of 12-AUG-2022 16:10, No significant change was found Confirmed by Galen Stone ([id number]), scientific publications editor ЕЛЕНА TIAN ([id number]) on 11/24/2023 8:39:14 AM Referred By: Delma Amos Confirmed By:Galen Stone
[2023-11-22 09:04] LABS: Internal QC Validated? YES +Cl - CLEAR BKGD; Pregnancy, Urine Negative Negative
[2023-11-22 09:10] LABS: Mean Corp Hgb Conc 33.3 g/dL (32-36); Mean Corpuscular Hgb 32.7 pg (27.0-32.0); Mean Platelet Vol. 8.5 fl (6.2-12.0); Platelet Count 303 K/mm3 (150-450); RBC Distribution Width CV 12.2 % (11.6-14.6); RBC Distribution Width SD 43.5 fl (35.1-43.9); Red Blood Count 3.98 M/mm3 (4.2-5.4); White Blood Count 9.6 K/mm3 (4.4-11.0)
[2023-11-22] MEDS: Lactated Ringers 1,000 ML 15 ML IV (09:17)
[2023-11-22 09:20] LABS: Partial Thromboplast Time 28.1 Seconds (24.1-36.2)
[2023-11-22 09:24] LABS: Prothrombin Time (Protime)PT. 13.6 SECONDS (11.7-14.9)
[2023-11-22 09:36] LABS: Bedside Glucose 117 mg/dL (74-106)
[2023-11-22 09:42] LABS: AST(SGOT) 15 U/L (15-37); Alanine Aminotransfer ALT/SGPT 23 U/L (13-56); Albumin, Serum 3.6 g/dL (3.2-5.0); Alkaline Phosphatase 52 U/L (45-117); Anion Gap 7 (5-15); BUN 8 mg/dL (7-18); BUN/Creat Ratio 11.1 RATIO (10-20); Bilirubin, Direct 0.11 mg/dL (0.00-0.30); Calcium,Total 8.6 mg/dL (8.5-10.1); Chloride 110 mmol/L (98-107); Creatinine, Serum 0.72 mg/dL (0.55-1.02); EST Glomerular Filtration Rate 105 mL/min (>60); Est Glom Filt Rate - Afr Amer 127 mL/min (>60); Estimated Creatinine Clearance 182.94 ml/min; Globulin 3.3 g/dL (2.2-4.2); Glucose 123 mg/dL (74-106); Potassium 3.5 mmol/L (3.5-5.1); Protein, Total 6.9 g/dL (6.4-8.2); Sodium Level 141 mmol/L (136-145)
--- NOTE | 2023-11-22 10:22 | HP.PCM_ITS ---
HPI - General HPI Narrative * SUGEY CHAVEZ, is a 22 F who presents for right knee arthroscopy, anterior cruciate ligament reconstruction quadriceps autograft, medial meniscus repair possible partial meniscectomy. No changes to history and physical exam. Risks alternatives benefits discussed as well as postoperative protocol and narcotic counseling. Patient advised if meniscus repair then it would be partial weightbearing in full extension for 6 weeks with passive range of motion 0 to 90 degrees. They would like to do the physical therapy in [place]. Consent updated right knee marked. The patient would like to go ahead no further concerns. MR#: [id number] Acct: [id number] Name: SUGEY CHAVEZ Rep #: [id number] : 2000 Provider: Dr. Indio Olivares MD Age/Sex: 22/F Location: [facility] [place] Status: Signed Intake Vital Signs 08/03/2314:42 Height 5 ft 11 in Weight: 280 lb BMI 39.0 BP 122/82 H Blood Pressure Location Lt brachial Position Sitting Respiration 16 Pulse 86 Pulse Source Monitor Temp 98.9 F Temp Source Temporal Pulse Oximetry (%) 97 Oxygen Delivery Method room air Intake Visit Reasons: right knee Is patient in pain?: Yes Allergies amoxicillin Allergy (Unknown, Verified 08/21/23 10:49) unknownazithromycin [From Zithromax Z-Clyde] Allergy (Unknown, Verified 08/21/23 10:49) unknownPenicillins Allergy (Unknown, Verified 08/21/23 10:49) unknown Medications albuterol sulfate 2.5 mg/3 mL (0.083 %) solution for nebulization 2.5 mg inhalation Q6H PRN Shortness Of Breath Or Wheezing 10/06/20 [History Confirmed 08/21/23] azelastine 137 mcg (0.1 %) nasal spray aerosol 2 spray intranasal BID #30 mL 05/16/21 [Rx Confirmed 08/21/23] blood-glucose meter (Emprego LigadoStyle System Kit) #1 ea 06/07/22 [Rx Confirmed 08/21/23] buspirone 10 mg tablet 10 mg PO TID #270 tabs 06/07/22 [Rx Confirmed 08/21/23] lancets 28 gauge (FreeStyle Lancets) #50 ea 06/07/22 [Rx Confirmed 08/21/23] albuterol sulfate 90 mcg/actuation breath activated powder inhaler 2 inh inhalation Q6H PRN shortness of breath #1 ea 06/25/22 [Rx Confirmed 08/21/23] blood sugar diagnostic (FreeStyle Test strips) #100 ea 09/23/22 [Rx Confirmed 08/21/23] cetirizine 10 mg tablet 10 mg PO DAILY #90 tabs 01/09/23 [Rx Confirmed 08/21/23] cholecalciferol (vitamin D3) 50 mcg (2,000 unit) capsule 50 mcg PO DAILY #90 caps 01/09/23 [Rx Confirmed 08/21/23] flash glucose sensor (FreeStyle Gualberto 14 Day Sensor kit) #1 ea 01/09/23 [Rx Confirmed 08/21/23] fluticasone propionate 50 mcg/actuation nasal spray,suspension (Allergy Relief (fluticasone)) 2 spray intranasal DAILY #16 grams 01/09/23 [Rx Confirmed 08/21/23] ondansetron HCl 4 mg tablet 4 mg PO TID PRN nausea and vomiting #90 tabs 05/02/23 [Rx Confirmed 08/21/23] sumatriptan succinate 100 mg tablet See Rx Instructions PO .COMPLEX #9 tabs 05/02/23 [Rx Confirmed 08/21/23] albuterol sulfate 90 mcg/actuation aerosol inhaler (ProAir HFA) 2 puff inhalation Q6H PRN Shortness Of Breath Or Wheezing #8.5 grams 05/03/23 [Rx Confirmed 08/21/23] amitriptyline 50 mg tablet 50 mg PO 05/03/23 [History Confirmed 08/21/23] amlodipine 5 mg tablet 5 mg PO DAILY #90 tabs 05/03/23 [Rx Confirmed 08/21/23] cyclobenzaprine 10 mg tablet 10 mg PO BID #60 tabs 05/03/23 [Rx Confirmed 08/21/23] nystatin-triamcinolone 100,000 unit/g-0.1 % topical cream applic topical 05/03/23 [History Confirmed 08/21/23] pen needle, diabetic 31 gauge x 3/16 (Droplet Pen Needle) #1,200 ea 05/03/23 [History Confirmed 08/21/23] arm brace (MILDRED Elbow Brace) #1 ea 05/11/23 [Rx Confirmed 08/21/23] meloxicam 15 mg tablet 15 mg PO DAILY #60 tabs 05/11/23 [Rx Confirmed 08/21/23] sertraline 100 mg tablet 100 mg PO DAILY #90 tabs 05/11/23 [Rx Confirmed 08/21/23] erenumab-aooe 70 mg/mL subcutaneous auto-injector (Aimovig Autoinjector) 70 mg subcut QMONTH #1 mL 05/31/23 [Rx Confirmed 08/21/23] flash glucose sensor (FreeStyle Gualberto 2 Sensor kit) #1 KIT 07/26/23 [Rx Confirmed 08/21/23] dulaglutide 1.5 mg/0.5 mL subcutaneous pen injector (Trulicity) 1.5 mg (0.5 mL) subcut QWEEK #2 mL 08/03/23 [Rx Confirmed 08/21/23] ibuprofen 600 mg tablet 600 mg PO Q6H PRN 08/03/23 [History Confirmed 08/21/23] metformin 500 mg tablet,extended release 24 hr 1,000 mg (2 x 500 mg) PO QPM #180 tabs 08/03/23 [Rx Confirmed 08/21/23] triamcinolone acetonide 0.1 % topical ointment 1 applic topical BID PRN rash #453.6 grams 08/03/23 [Rx Confirmed 08/21/23] PFSH Medical History (Updated 08/03/23 @ 16:[address] Delma Amos MD) Anemia Asthma Chronic back pain Chronic bronchitis Cough COVID-19 Cubital tunnel syndrome on left Depression Dermatitis Diabetes Essential hypertension Generalized anxiety disorder Generalized anxiety disorder with panic attacks Hemoptysis High cholesterol History of migraine Hypersomnia Insomnia Left shoulder pain Left ventricular noncompaction Low back pain Low calcium levels Migraine Obesity (BMI 30-39.9) Paresthesia Pneumonia Post concussion syndrome Preoperative evaluation to rule out surgical contraindication Right knee pain Shortness of breath Thyromegaly Thyromegaly Type 2 diabetes mellitus Ulnar neuropathy Vision problems Vitamin deficiency Surgical History History of myringotomy History of nasal cauterization History of tonsillectomy and adenoidectomy Family History Father No problems noted. Grandfather DiabetesGrandmother HypertensionAunt HypertensionOther Anxiety Arthritis Asthma Depression Osteoporosis Respiratory disease Severe allergy Social History Smoking Status: Former smoker Tobacco: How many years used: 4 how long ago did patient quit smokin09/04/2020 second hand exposure: No alcohol intake: current alcohol intake frequency: a few times a month Alcohol type: hard liquor substance use type: does not use caffeine: No what type of physical activity do you participate in: walking frequency: daily seatbelt use: sometimes additional social history: DOES NOT TAKE ASPIRIN DOES TAKE IBUPROFEN NEEDED HPI right knee Details: This documentation accurately reflects the service provided and the decisions made by me, Dr. Indio Olivares MD 08/21/23 1002. Part of today?s visit was documented by [ ], acting as scribe. SUGEY CHAVEZ is a 22 year old F here today for FU R knee acl and MM to book surgery after hb a1c check. Pt got sugar under control, still having L hand numbness despite brace. Ortho Exam General General: Yes no acute distress Neurologic: Yes alert and Yes oriented x3 Psychologic: Yes reasonable and appropriate Right Knee Skin/Wound: Yes CDI, No erythema, No ecchymosis and No swelling Knee ROM: Yes ROM-Flexion 0-140 Examination: Yes Med jt line tenderness, No Lat jt line tenderness, No TTP inf pole patella, No Crepitus, No Pain with flexion, No Pain with extention, Yes Bhavya's Test and No Illiotibial band tenderness Quad Atrophy: Yes Stability: NML: Posterior Drawer, NML: Valgus 0, NML: Valgus 30, NML: Varus 0 and NML: Varus 30 and 2+: Anterior Drawer and 2+: Veronika Patella Translation: 2 Apprehension with Lateral Translation: No Patellar Tilt Normal: Yes Patella Grind: No KNEE: 2+ pivot shift, nvi, normal sens and motor to the foot, Left Knee Patella Translation: 2 Supplemental Info [facility] [address] [place] [address] Lower Ext Joint Only (Routine) MR#: [id number] Acct: [id number] Name: SUGEY CHAVEZ Rep #: [id number] : 2000 F 22 From: Larry Frost MD PCP: Dr. Delma Amos MD Status: REG CLI Study: Lower Ext Joint Only (Routine) Date of Exam: 03/16/23 Exam# [id number] Ordering Dr: Solis Hassan DO STUDY: MRI RIGHT KNEE REASON FOR EXAM: Female, 22 years old. Medial knee pain. History of fall 7 years ago. TECHNIQUE: Standardized fat and water weighted pulse sequences were obtained in all 3 orthogonal planes. COMPARISON: None. FINDINGS: Complex tear of the posterior horn of the medial meniscus with a vertical component to the tear extending into the anterior horn (coronal series 6 images 7-20). Mild thinning of the articular cartilage of the medial femorotibial compartment (coronal series 6 images 10-16). Normal medial femoral condyle and tibial plateau. Slight thickening of the proximal medial collateral ligament (coronal series 6 image 15). Normal distal semimembranosus, gracilis and semitendinosus tendons. Normal lateral meniscus. Normal hyaline cartilage of the lateral femorotibial compartment. Normal lateral femoral condyle and tibial plateau. Normal proximal tibiofibular articulation. Normal lateral collateral (fibular) ligament. Normal popliteus tendon. Normal biceps femoris tendon. Remote tear of the anteromedial bundle of the ACL with preservation of the posterolateral bundle (sagittal series 3 images 20-24, coronal series 6 images 10-15). Buckling of the PCL compatible with anterior tibial translation (sagittal series 3 image 24). Normal congruent patellofemoral articulation. Normal hyaline cartilage of the patellofemoral compartment. Normal medial and lateral patellar retinaculum. Normal quadriceps tendon. Normal patellar tendon. Normal Hoffa''s fat pad. Small joint effusion (axial series 2 images 7-10). Soft tissues and visualized osseous structures are normal.. MRI/Lower Ext Joint Only (Routine) IMPRESSION: Complex tear of the posterior horn of the medial meniscus with a vertical component to the tear extending from the posterior horn to the anterior horn. No displacement of the inner fragment. Mild thinning of the articular cartilage of the medial femorotibial compartment. Slight thickening of the proximal MCL. Remote tear of the anteromedial bundle of the ACL with preservation of the posterolateral bundle. Buckling of the PCL compatible with anterior tibial translation. Small joint effusion. Electronically Signed: Larry Frost MD at 18:26 EDT , hg a1c down to 6.8 Coding Level of Care Code Off vis,est,level 4 Diagnoses Rupture of anterior cruciate ligament of right knee, subsequent encounter S83.511D Encounter type: subsequent encounter Laterality: right Complex tear of medial meniscus of right knee as current injury, subsequent encounter S83.231D Encounter type: subsequent encounter Laterality: right Meniscus tear of knee type: complex Tear current or old: current Cubital tunnel syndrome on left G56.22 Assessment and Plan Assessment and Plan (1) ACL (anterior cruciate ligament) rupture: Status: Acute Qualifiers: Encounter type: subsequent encounter Laterality: right Qualified Code(s): S83.511D - Sprain of anterior cruciate ligament of right knee, subsequent encounter Plan: 22-year-old female with a right knee ACL tear and medial meniscus tear. She has tried extensive conservative management including bracing. The knee continues to be loose and unstable and giving way. My physical examination and MRI concurs. Patient can continue on nonoperative management although with this degree of laxity and symptoms as well as patient's age and physically demanding job surgery is certainly to be considered here. Patient understands wished to go ahead with surgery may be at increased risk of infection or other complications due to thyroid problems and diabetes. Patient wishes to proceed with right knee arthroscopy, anterior cruciate ligament reconstruction quadriceps autograft, medial meniscus repair possible partial meniscectomy Pros and cons risks and benefits were discussed with the patient including but not limited to infection, pain, stiffness, bleeding, damage to surrounding st ructures, neurovascular injury, recurrence or retear, failure or wear of hardware or fixation, instability, fracture, deep vein thrombosis and pulmonary embolism, anesthetic risks, , patient dissatisfaction, need for further surgery and other risks. Patient understood and wished to proceed with surgery, and signed the informed consent documentation. (2) Medial meniscus tear: Status: Acute Qualifiers: Encounter type: subsequent encounter Laterality: right Meniscus tear of knee type: complex Tear current or old: current Qualified Code(s): S83.231D - Complex tear of medial meniscus, current injury, right knee, subsequent encounter [facility] Medical History (Updated 11/08/23 @ 10:11 by Dori Harrison) Anxiety Asthma Asthma Cardiology follow-up encounter Chronic back pain Cough Cubital tunnel syndrome on left Depression Depression Dermatitis Diabetes Diabetes Dietary restriction Easy bruising Essential hypertension Gastroenteritis Generalized anxiety disorder Generalized anxiety disorder with panic attacks Hemoptysis High cholesterol History of edema History of migraine History of pain when walking Hypersomnia Hypertension Injury of head and neck Insomnia Left shoulder pain Left ventricular noncompaction Low back pain Low iron Migraine Migraine headache Obesity (BMI 30-39.9) Paresthesia Pneumonia Post concussion syndrome Preoperative evaluation to rule out surgical contraindication Right knee pain Screening for thyroid disorder Shortness of breath Shortness of breath on exertion Thyromegaly Thyromegaly Type 2 diabetes mellitus Ulnar neuropathy Vapes nicotine containing substance Vision problems Wears glasses Home Medications albuterol sulfate 2.5 mg/3 mL (0.083 %) solution for nebulization 2.5 mg inhalation PRN PRN Shortness Of Breath Or Wheezing 10/06/20 [History Last Taken Unknown] blood-glucose meter (Emprego LigadoStyle System Kit) #1 ea 06/07/22 [Rx Last Taken Unknown] buspirone 10 mg tablet 10 mg PO TID #270 tabs 06/07/22 [Rx Last Taken 11/21/23] cetirizine 10 mg tablet 10 mg PO DAILY #90 tabs 01/09/23 [Rx Last Taken Unknown] cholecalciferol (vitamin D3) 50 mcg (2,000 unit) capsule 50 mcg PO DAILY #90 caps 01/09/23 [Rx Last Taken Unknown] flash glucose sensor (FreeStyle Gualberto 14 Day Sensor kit) #1 ea 01/09/23 [Rx Last Taken Unknown] fluticasone propionate 50 mcg/actuation nasal spray,suspension (Allergy Relief (fluticasone)) 2 spray intranasal DAILY #16 grams 01/09/23 [Rx Last Taken Unknown] sumatriptan succinate 100 mg tablet See Rx Instructions PO .COMPLEX #9 tabs 05/02/23 [Rx Last Taken Unknown] albuterol sulfate 90 mcg/actuation aerosol inhaler (ProAir HFA) 2 puff inhalation Q6H PRN Shortness Of Breath Or Wheezing #8.5 grams 05/03/23 [Rx Last Taken Unknown] amitriptyline 50 mg tablet 50 mg PO QHS 05/03/23 [History Last Taken Unknown] cyclobenzaprine 10 mg tablet 10 mg PO BID #60 tabs 05/03/23 [Rx Last Taken Unknown] nystatin-triamcinolone 100,000 unit/g-0.1 % topical cream 1 applic topical PRN PRN SKIN 05/03/23 [History Last Taken Unknown] sertraline 100 mg tablet 100 mg PO DAILY #90 tabs 05/11/23 [Rx Last Taken Unknown] ibuprofen 600 mg tablet 600 mg PO Q6H PRN pain 08/03/23 [History Last Taken 11/22/23 07:00] triamcinolone acetonide 0.1 % topical ointment 1 applic topical BID PRN rash #453.6 grams 08/03/23 [Rx Last Taken Unknown] ondansetron HCl 4 mg tablet 4 mg PO TID PRN nausea and vomiting #90 tabs 10/12/23 [Rx Last Taken Unknown] amlodipine 5 mg tablet 5 mg PO DAILY 11/08/23 [History Last Taken Unknown] dulaglutide 1.5 mg/0.5 mL subcutaneous pen injector (Trulicity) 3 mg subcut BO 11/08/23 [History Last Taken Unknown] metformin 500 mg tablet,extended release 24 hr 1,000 mg PO TID 11/08/23 [History Last Taken Unknown] vitamin B12 500 mcg-folic acid 400 mcg tablet 1 tab PO DAILY 11/08/23 [History Last Taken Unknown] Allergy/AdvReac Type Severity Reaction Status Date / Time amoxicillin Allergy Unknown unknown Verified 11/22/23 09:07 azithromycin Allergy Unknown unknown Verified 11/22/23 09:07 [From Zithromax Z-Clyde] Penicillins Allergy Unknown unknown Verified 11/22/23 09:07 Family History Father No problems noted. Grandfather Diabetes Grandmother Hypertension Aunt Hypertension Other Anxiety Arthritis Asthma Depression Osteoporosis Respiratory disease Severe allergy Surgical History (Updated 11/08/23 @ 10:11 by Dori Harrison) History of nasal cauterization History of nasal cauterization History of tonsillectomy and adenoidectomy Hx of myringotomy Social History Smoking Status: Current every day smoker tobacco type: e-cigarettes Tobacco: How many years used: 4 how long ago did patient quit smokin09/04/2020 second hand exposure: No alcohol intake: current alcohol intake frequency: a few times a month Alcohol type: hard liquor substance use type: does not use caffeine: No what type of physical activity do you participate in: walking frequency: daily seatbelt use: sometimes additional social history: DOES NOT TAKE ASPIRIN DOES TAKE IBUPROFEN NEEDED Vital Signs Vital Signs Vital Signs: 11/22/23 09:11 11/22/23 09:11 Temperature 97.1 F L Temperature Source Temporal Pulse Rate 91 Respiratory Rate 16 Respiratory Pattern Normal Blood Pressure 137/89 H Blood Pressure Mean 105 Blood Pressure Source Monitor Blood Pressure Position Sitting Blood Pressure Location Right Arm Pulse Ox 99 Oxygen Delivery Method Room Air Weight Weight: 296 lb Body Mass Index (BMI) 41.3 Results Lab / Micro Data 11/22/23 09:05 11/22/23 09:05 Labs: Laboratory Results - last 24 hr 11/22/23 08:53: Urine Test Negative 11/22/23 09:05: WBC 9.6, RBC 3.98 L, Hgb 13.0, Hct 39.0, MCV 98.0, MCH 32.7 H, MCHC 33.3, RDW Std Deviation 43.5, RDW Coeff of [place] 12.2, Plt Count 303, MPV 8.5, PT 13.6, INR 1.0, APTT 28.1, Sodium 141, Potassium 3.5, Chloride 110 H, Carbon Dioxide 24.0, Anion Gap 7, BUN 8, Creatinine 0.72, Estim Creat Clear Calc 182.94, Est GFR (MDRD) Af Amer 127, Est GFR (MDRD) Non-Af 105, BUN/Creatinine Ratio 11.1, Glucose 123 H, Calcium 8.6, Total Bilirubin 0.40, Direct Bilirubin 0.11, AST 15, ALT 23, Alkaline Phosphatase 52, Total Protein 6.9, Albumin 3.6, Globulin 3.3 11/22/23 09:10: POC Glucose 117 H
[2023-11-22] MEDS: Cefazolin 3 GM in 0.9% Normal Saline (100mL Bag) 100 ML IV (10:35)
[2023-11-22] MEDS: Epinephrine (1 mg/ml) 1 MG/ML VIAL (11:18)
[2023-11-22] MEDS: Bupivacaine 0.25% 30 ML Vial (12:30)
--- NOTE | 2023-11-22 12:45 | PCM.OPRPT ---
Problems Associated Problem List Diagnoses (1) ACL (anterior cruciate ligament) rupture: (2) Medial meniscus tear: Report of Operation Date of Procedure: 11/22/23 Pre-Operative Diagnosis: Left knee ACL tear and medial meniscus tear Post-Operative Diagnosis: Same Surgery/Procedure Performed:: Left knee quadriceps tendon autograft ACL reconstruction and medial meniscus repair Surgeon: Indio Olivares Type of Anesthesia: General and Local Anesthesiologist: Ede Vyas Estimated Blood Loss (mL): 30 Description of Procedure: Patient brought to the operating room theater. Placed supine on the table. 2 g IV Ancef administered prior to start the case. General anesthesia induced. All bony prominences padded. SCD on the nonoperative leg. 40 inch tourniquet applied to the right thigh appropriately padded. Stress positioner to the patient's right side. Lower extremity prepped and draped in the usual sterile fashion with chlorhexidine-based prep solution allowing over 3 minutes drying time prior to draping. Preoperative timeout performed to confirm the site patient and surgery. Began by elevating the limb inflated the tourniquet to 250 mmHg. The standard anterolateral and anteromedial arthroscopy portals as well as accessory anterolateral and anteromedial arthroscopy portals. Did a full diagnostic arthroscopy. Cartilage in all 3 compartments was normal. Normal medial and lateral gutters no loose bodies. There was a full-thickness ACL tear. I debrided the remnant as well as the ligamentum mucosum. PCL appeared normal. Lateral meniscus appears stable solid to probing. Medial meniscus had a vertical outer surface tear at the meniscocapsular junction. This was very unstable that extended from just anterior to the posterior root to the anterior one third junction. Roots were stable. I first used a rasp to freshen up the capsular side. I then used a Arthrex fiber stitch implants 6 implants in total to create a vertical mattress sutures which stabilized and repaired the meniscus nicely against the capsule. I also used a piecrust technique at the proximal origin of the MCL percutaneous spinal needle to open up the medial compartment as well. I took arthroscopy pictures throughout and saved them onto the system. I then turned my attention to harvesting the quadriceps tendon autograft ACL graft. I made a small 1-1/2 inch transverse incision at the superior border of the patella. Carried dissection down through skin and subcutaneous tissue to meticulous hemostasis. I used the Arthrex quad pro 9 mm harvester. I harvested a central third strip extra-articular of the quadriceps tendon. This was a length of about 7-1/2 cm which I shorten to about 7 cm in length. I closed the defect in the quad [id number] loosely with a #1 Vicryl suture. I then took the graft to the back table. The graft I removed any muscle and other soft tissue attachments of the graft. Shorten the graft to length of 7 cm. I used the Arthrex attachable button system on both sides with adjustable loops and ABS tight rope on the tibial side. The graft measured 9 mm throughout. I then put the graft on tension with a wet sponge. I then turned my attention back to the knee. Using arthroscopic retrograde drilling using the third-generation flip cutter I drilled at the appropriate location on the femur a 2-1/2 cm tunnel 9 mm in diameter as well as on the tibial side 9 mm diameter by 3-1/2 cm length well. 4cm long femur and 4.5cm tibia lengths. Cleaned out any sort of bone dust, drove the camera up into the femoral tunnel to confirm appropriate lateral wall. I placed the femoral tunnel in an appropriate low and posterior position ensuring good backwall and the tibial side I placed a approximately 9 mm anterior to the PCL and at the in line with the anterior horn lateral meniscus as well as using previous soft tissue attachments to guide both tunnel placements. I placed a passport cannula at the anteromedial aspect portal and passed sutures passing sutures. I then remove the passport to ensure no soft tissue bridges passed the femoral button up into the femoral tunnel flipped the button and delivered 2 and half centimeters of graft into the femur. I then used a luggage tag passing suture to pass the adjustable button loop sutures through the tibial side. I then attached the tibial button. I cycled the knee 15 times and attached the button in full extension and tension the button appropriately, sequential going back and forth both sides. I ensured that there is no soft tissue impingement of the graft in full extension in the notch. I also performed a small notchplasty at the medial side of the lateral femoral condyle. Graft was tested and found to be stable with Veronika testing. I took final arthroscopy pictures and saved them onto the system.Tourniquet down and hemostasis achieved. Wound thoroughly irrigated subcutaneous tissue closed with 2-0 Vicryl suture skin with 3-0 Monocryl. Skin cleaned with wet and dry dressing 15 cc quarter percent bupivacaine around the incision sites followed by Steri-Strips Adaptic 4 x 4 gauze ABD dressing loosely wrapped Forrest wrap and a hinged knee brace locked in full extension. Patient woken up from the general anesthetic transferred off the operating table and taken to postanesthetic care unit in stable condition. All sponge needle instrument counts were correct. Plan for the patient on crutches at least 2 weeks with the brace locked in full extension ambulating passive range of motion 0 to 90 degrees with physical therapy. cpt 86602, [id number]? Complications none Admit VTE Documentation VTE Present on Admission: No VTE Mechan Device Prophylaxis: SCD's VTE Pharm Prophylaxis ordered?: No Reason prophylaxis not ordered:: Treatment Not Indicated Procedures Musculoskeletal 20xxx-29xxx: Other Procedure See Report
--- NOTE | 2023-11-22 13:04 | DCINST_ITS ---
Discharge Instructions Diet Discharge Diet: No restrictions Activity Discharge Activity: Use Crutches May shower in (days): 10 Weight Bearing Status: Toe touch weight bearing Keep extremity elevated above heart level: Operative Extremity Additional Activity Instructions:: use crutches with leg straight Dressing / Incision Call your doctor if your incision/area has: Continuous Slow Oozing, Sudden Increased Bleeding, Increased Pain/ Swelling, Increased Redness, Foul Smelling Discharge and Swelling at the incision site Change Dressing in: leave in place till F/U Cleanse incision/area with: Keep Dressing Clean & Dry Follow Up Care Please Follow Up With: Indio Olivares MD When: 2 days Test Results: Test results from this visit will be discussed in further detail at your follow- up appointment, if applicable. Discharge Plan Admission Attending Provider: Indio Olivares Primary Care Provider: Delma Amos Discharge Orders/Prescriptions Prescriptions: New aspirin [Adult Aspirin Regimen] 81 mg tablet,delayed release (DR/EC) 81 mg PO BID MDD 2 30 Days Qty: 60 0RF oxycodone-acetaminophen [Percocet] 5-325 mg tablet 1 tab PO Q4H MDD 6 PRN (Reason: pain) 5 Days Qty: 20 0RF No Action albuterol sulfate 2.5 mg /3 mL (0.083 %) solution for nebulization 2.5 mg INHALATION PRN PRN (Reason: Shortness Of Breath Or Wheezing) (DME) blood-glucose meter [FreeStyle System Kit] Kit See Rx Instructions .ROUTE .MEDSUPPLY Qty: 1 0RF Rx Instructions: check blood glucose daily for type 2 DM buspirone 10 mg tablet 10 mg PO TID Qty: 270 1RF sumatriptan succinate 100 mg tablet See Rx Instructions PO .COMPLEX Qty: 9 4RF Rx Instructions: Take 1 tablet PO every 2 hours as needed for headache up to 2 tablets/day amitriptyline 50 mg tablet 50 mg PO QHS Patient Comments: take 1 tablet by mouth at bedtime nystatin-triamcinolone 100,000-0.1 unit/g-% cream 1 applic topical PRN PRN (Reason: SKIN) Patient Comments: apply 1/2 gram topically to affected area twice a day albuterol sulfate [ProAir HFA] 90 mcg/actuation HFA aerosol inhaler 2 puff INHALATION Q6H PRN (Reason: Shortness Of Breath Or Wheezing) Qty: 8.5 1RF cyclobenzaprine 10 mg tablet 10 mg PO BID Qty: 60 1RF ibuprofen 600 mg tablet 600 mg PO Q6H PRN (Reason: pain) triamcinolone acetonide 0.1 % ointment 1 applic topical BID PRN (Reason: rash) Qty: 453.6 0RF sertraline 100 mg tablet 100 mg PO DAILY Qty: 90 1RF ondansetron HCl 4 mg tablet 4 mg PO TID PRN (Reason: nausea and vomiting) Qty: 90 1RF vitamin [id number] acid 500-400 mcg tablet 1 tab PO DAILY Rx Instructions: administer with a meal metformin 500 mg tablet extended release 24 hr 1,000 mg PO TID Trulicity 1.5 mg/0.5 mL pen injector 3 mg subcut BO amlodipine 5 mg tablet 5 mg PO DAILY Rx Instructions: take 1 tablet by mouth daily fluticasone propionate [Allergy Relief (fluticasone)] 50 mcg/actuation spray,suspension 2 spray INTRANASAL DAILY Qty: 16 2RF Rx Instructions: administer into each nostril (DME) FreeStyle Gualberto 14 Day Sensor Kit See Rx Instructions .Route Qty: 1 3RF Rx Instructions: Check blood glucose daily cholecalciferol (vitamin D3) 50 mcg (2,000 unit) capsule 50 mcg PO DAILY Qty: 90 3RF cetirizine 10 mg tablet 10 mg PO DAILY Qty: 90 1RF Other Ambulatory Orders: 12 Lead EKG (Routine) Timeframe: 20231114 Facility: [facility] - Location: Cardiovascular Services Ordered By: Dr. Fortunato Yap Referrals / Follow Up: Delma Amos MD [Primary Care Provider] - Indio Olivares MD [Med Staff - Active Staff] - Disposition Disposition (needs filled in before D/C Order can be placed): Home, Self Care
[2023-11-22 15:32] LABS: Bedside Glucose 165 mg/dL (74-106)
[2023-11-22] MEDS: Oxycodone/Apap 5/325 Tablet PO (16:01)
== END 2023-11-22 17:07 | disposition home or self-care (01) ==
LOC: SDC 08:33 → AC 08:35
PROVIDERS: Anesthesiology; PCP Internal Medicine; Referring Provider Internal Medicine; Visit Provider Orthopaedic Surgery Sports Medicine
PROC: (CPT 29888; principal; 2023-11-22 09:35)
DX: S83.511A Sprain of anterior cruciate ligament of right knee, initial encounter (principal); E11.9 Type 2 diabetes mellitus without complications; S83.231A Complex tear of medial meniscus, current injury, right knee, initial encounter; E78.00 Pure hypercholesterolemia, unspecified; I10 Essential (primary) hypertension; J45.909 Unspecified asthma, uncomplicated; G56.22 Lesion of ulnar nerve, left upper limb; Z79.84 Long term (current) use of oral hypoglycemic drugs; Z79.899 Other long term (current) drug therapy; Z79.85 Long-term (current) use of injectable non-insulin antidiabetic drugs; Z87.891 Personal history of nicotine dependence; W19.XXXA Unspecified fall, initial encounter
CPT/HCPCS: 29888; 29882; 01400; 80048; 80076; 81025; 82962; 85027; 85610; 85730; 93005; J7120; J2405

== ENCOUNTER 2024-03-22 00:08 | Emergency (ER) | payer MEDICAID, SELFPAY ==
[2024-03-22 00:09] VITALS: BP 159/98; PULSE 110; RESP 16; TEMP 37; O2SAT 99; BMI 41.3
--- NOTE | 2024-03-22 00:23 | RAD_ITS ---
EXAM: XR LEFT ELBOW COMPLETE, 3 OR MORE VIEWS CLINICAL INDICATION: pain/injury poss infection TECHNIQUE: Frontal, lateral and oblique views of the left elbow. COMPARISON: No relevant prior studies available. FINDINGS: BONES/JOINTS: Unremarkable. There is no displacement of the anterior or posterior fat pads. No acute fracture. No subluxation. Normal alignment. Preservation of the joint space. No destructive or sclerotic lesions. SOFT TISSUES: Volar soft tissue swelling. No radiopaque foreign body. RAD/Elbow min 3 Views IMPRESSION: Volar soft tissue swelling. Electronically Signed: Dick Nichole MD at 1:08 EDT ,
--- NOTE | 2024-03-22 00:25 | EDS_ITS ---
HPI History of Present Illness Chief Complaint: Abscess Informant: patient Narrative Narrative: Patient states she drank alcohol and was fairly intoxicated last night to the point where she does not remember some of what happened late in the evening/night, and woke up this morning with an abrasion and some bruising in the area of her left antecubital fossa. She does not do any IV drugs, but does not remember how she injured it when she was intoxicated the night before. She states it was maybe a little sore like she had a scrape there but she did not have any significant pain. She presents around midnight because throughout the course of the entire day, it started getting red and more painful and the redness has spread down her forearm. She is diabetic, her blood sugar has been around 150 today, which is not unusual for her, and she denies any fevers, chills, malaise, or other systemic symptoms. She put liquid bandage on it and noticed that during the course of the day there is a little bit of discharge within the bandage but it has not been leaking out. [facility] Medical History Wears glasses Depression Anxiety Diabetes Low iron Easy bruising Injury of head and neck Migraine headache Dietary restriction Vapes nicotine containing substance Asthma Shortness of breath on exertion History of pain when walking History of edema Cardiology follow-up encounter Hypertension Gastroenteritis Screening for thyroid disorder Dermatitis Hemoptysis Cough Cubital tunnel syndrome on left Ulnar neuropathy Preoperative evaluation to rule out surgical contraindication Migraine Type 2 diabetes mellitus Post concussion syndrome Hypersomnia Left shoulder pain Thyromegaly Thyromegaly Vision problems High cholesterol Chronic back pain Right knee pain Generalized anxiety disorder with panic attacks Generalized anxiety disorder Obesity (BMI 30-39.9) Paresthesia Low back pain Shortness of breath Left ventricular noncompaction Pneumonia Asthma Essential hypertension Insomnia History of migraine Diabetes Depression Home Medications ?Medication ?Instructions ?Recorded ?Last Taken ?Type cephalexin 500 mg capsule 500 mg PO Q6 #40 CAPSULES 03/22/24 Unknown Rx Allergy/AdvReac Type Severity Reaction Status Date / Time amoxicillin Allergy Unknown unknown Verified 03/22/24 00:09 azithromycin (From Zithromax Allergy Unknown unknown Verified 03/22/24 00:09 Z-Clyde) Penicillins Allergy Unknown unknown Verified 03/22/24 00:09 Family History Father No problems noted. Grandfather Diabetes Grandmother Hypertension Aunt Hypertension Other Anxiety Arthritis Asthma Depression Osteoporosis Respiratory disease Severe allergy Surgical History History of nasal cauterization History of nasal cauterization History of tonsillectomy and adenoidectomy Hx of myringotomy Social History Smoking Status: Current every day smoker tobacco type: e-cigarettes Tobacco: How many years used: 4 how long ago did patient quit smokin09/04/2020 second hand exposure: No alcohol intake: current alcohol intake frequency: a few times a month Alcohol type: hard liquor substance use type: does not use caffeine: No what type of physical activity do you participate in: walking frequency: daily seatbelt use: sometimes additional social history: DOES NOT TAKE ASPIRIN DOES TAKE IBUPROFEN NEEDED ROS ROS ED Constitutional Constitutional ED: Denies chills, fever(s) or malaise Cardiovascular Cardiovascular: Denies chest pain Respiratory/Chest Respiratory/Chest: Denies dyspnea Gastrointestinal Gastrointestinal: Denies nausea or vomiting Musculoskeletal Musculoskeletal: Reports extremity pain; Denies neck pain Integumentary Reports rash and wounds; Denies Abrasions Neurologic Neurologic: Denies paresthesias or weakness EXAM Physical Exam Const Vital Signs: 03/22/24 00:09 03/22/24 01:14 Temperature 98.6 F 98.8 F Temperature Source Oral Oral Pulse Rate 110 H 88 Respiratory Rate 16 16 Blood Pressure 159/98 H 148/98 H Blood Pressure Mean 118 114 Pulse Ox 99 97 Oxygen Delivery Method Room Air Positive well nourished and well developed General Appearance ED: well developed and NAD Neck full ROM and supple Back/Spine normal ROM and normal to inspection Extremity Extremity Narrative: Left upper extremity abrasion at the mid antecubital fossa with nearby bruising medially distal upper arm as well as some just laterally within the antecubital fossa, and then surrounding erythema that is not ecchymosis or purpura surrounding this and more distal into the volar forearm about 10 or 12 cm then proximal; no lymphangitis. No abscess. No induration around the abrasion and no expressible discharge, the abrasion does look very superficial. Able to range the elbow fully without any difficulty. All compartments soft and nondistended. No palpable subcutaneous emphysema. All of the erythematous area is mildly tender, but the majority of the tenderness is at the abrasion itself. There is a small amount of discharge on the inside of a liquid bandage I had the patient remove from the abrasion. Neuro oriented x3, no focal motor deficits and no sensory deficits noted Sensorium / Orientation: alert Psych mental status grossly normal and thought process normal Skin Skin Narrative: Abrasion with what appears to be surrounding cellulitis without a palpable abscess left volar proximal forearm see above MDM MDM MDM Narrative Medical decision making narrative: There is no abscess here, there is no palpable collection or induration in the area of this abrasion which appears to be the cause of secondary cellulitis given that she is diabetic in my judgment. Hence I had to remove the liquid bandage, and we will replace it with gauze and bacitracin, obtain labs, and give her empiric IV vancomycin 50 mg/kg to cover staph and strep since she is penicillin allergic. Also prior to even obtaining a workup or starting an IV, I outlined the cellulitis with a skin marking pen. She is well-appearing her vital signs are normal and she is not septic from this. I did obtain a three- view x-ray series of the left elbow, mainly to look at the soft tissues and ensure that there is no subcutaneous emphysema to suggest necrotizing fasciitis. On my interpretation, the x-rays do not show any subcutaneous air, radiopaque foreign body, or bony fracture/injury. Labs noted, they are normal. After 1-2 hours in the emergency department I reevaluated the patient, the borders of the erythema is unchanged compared with when I first terry a line around it. Given all of this I think the chances of this being necrotizing fasciitis are extremely low and I think outpatient treatment with antibiotics is appropriate I explained all this to her and we discussed reasons to return to the ER, she understands and is comfortable with that overall plan. With regards to her penicillin allergy she does not know she was a young child, but was never admitted to the ICU in the past. Very unlikely to be anaphylaxis, she has never had Keflex/cephalexin before, but I think the chances of cross-reactivity and reaction here are very low and I think that is the most appropriate medication for this. No evidence that this is MRSA. Lab Data Attestation: I reviewed the patient's lab results. Labs: Laboratory Results - last 24 hr 03/22/24 00:26 WBC 9.0 RBC 4.20 Hgb 13.9 Hct 40.1 MCV 95.5 MCH 33.1 H MCHC 34.7 RDW Std Deviation 42.1 RDW Coeff of [place] 12.1 Plt Count 314 MPV 8.9 Immature Gran % (Auto) 0.800 Neut % (Auto) 59.1 Lymph % (Auto) 35.0 [place] % (Auto) 4.1 Eos % (Auto) 0.9 Baso % (Auto) 0.1 Absolute Neuts (auto) 5.3 Absolute Lymphs (auto) 3.15 Nucleated RBC % 0 Sodium 141 Potassium 3.6 Chloride 107 Carbon Dioxide 27.0 Anion Gap 7 BUN 10 Creatinine 0.78 Estim Creat Clear Calc 167.65 Est GFR (MDRD) Af Amer 115 Est GFR (MDRD) Non-Af 95 BUN/Creatinine Ratio 12.8 Glucose 172 H Calcium 9.1 Radiography Diagnostic Testing: Clinical Impression(s) from Imaging Studies Elbow X-Ray 03/22/24 00:23 IMPRESSION: Volar soft tissue swelling. Electronically Signed: Dick Nichole MD at 1:08 EDT , Discharge Plan Triage Chief Complaint: Abscess ED Provider: Vini Sun Dx/Rx/DC Orders Clinical Impression: Cellulitis of left upper extremity, Type 2 diabetes mellitus, Infected abrasion of forearm Instructions: ED Cellulitis Prescriptions: New cephalexin 500 mg capsule 500 mg PO Q6 Qty: 40 0RF Primary Care Provider: Delma Amos Referrals: Delma Amos MD [Primary Care Provider] - 3-5 Days Print Language: Divehi Disposition Disposition: Home, Self Care
[2024-03-22] MEDS: Vancomycin HCl 2,000 MG in 0.9% Normal Saline (500mL Bag) 500 ML 250 MG IV (00:36)
[2024-03-22 00:42] LABS: Absolute Lymphocyte Count 3.15 X10^3/uL (0.83-4.51); Absolute Neutrophil Count 5.3 X10^3/uL (2.0-7.7); Basophil# 0.01 X10^3/uL; Basophil% 0.1 % (0-1); Eosinophil# 0.08 X10^3/uL; Eosinophils% 0.9 % (0-5); Hematocrit 40.1 % (37-47); Hemoglobin 13.9 g/dL (12.0-15.0); Lymphocyte # 3.15 X10^3/ul (0.83-4.51); Mean Corp Hgb Conc 34.7 g/dL (32-36); Mean Corpuscular Hgb 33.1 pg (27.0-32.0); Mean Corpuscular Volume 95.5 fL (81-99); Mean Platelet Vol. 8.9 fl (6.2-12.0); Monocyte# 0.37 X10^3/uL; Monocyte% 4.1 % (0-10); NRBC Flagged by Analyzer 0 % (0-5); Neutrophil # 5.31 X10^3/uL (2.7-7.7); Neutrophil % 59.1 % (47-70); Platelet Count 314 K/mm3 (150-450); RBC Distribution Width CV 12.1 % (11.6-14.6); RBC Distribution Width SD 42.1 fl (35.1-43.9)
[2024-03-22 00:45] LABS: Anion Gap 7 (5-15); BUN 10 mg/dL (7-18); BUN/Creat Ratio 12.8 RATIO (10-20); Calcium,Total 9.1 mg/dL (8.5-10.1); Chloride 107 mmol/L (98-107); Creatinine, Serum 0.78 mg/dL (0.55-1.02); EST Glomerular Filtration Rate 95 mL/min (>60); Est Glom Filt Rate - Afr Amer 115 mL/min (>60); Estimated Creatinine Clearance 167.65 ml/min; Glucose 172 mg/dL (74-106); Potassium 3.6 mmol/L (3.5-5.1); Sodium Level 141 mmol/L (136-145)
[2024-03-22 01:14] VITALS: BP 148/98; PULSE 88; RESP 16; TEMP 37.1; O2SAT 97
[2024-03-22 02:00] VITALS: BP 146/86; PULSE 88; RESP 18; TEMP 36.8; O2SAT 96
--- NOTE | 2024-03-22 02:15 | ED.RN ---
While triaging patient, patient's visitors are talking stating I hate this [facility], fuck this [facility]. They don't know what they are doing and are fucking stupid. This nurse advised to visitors that they would need to maintain respectful behavior while in the emergency department. Visitors verbalized that they weren't talking to this nurse and to stay out of their conversation. Advised visitors that any additional unruly behavior would not be tolerated and they would be asked to leave. Later, both visitors ambulated out of department with [facility] blankets. This nurse advised that blankets would need to stay in the hospital. Visitors huffed at this nurse and threw blankets. Visitors later return and asked for more blankets. Advised that blankets are for patients and multiple blankets would not be handed out to visitors. Visitors upset and ambulated back to room.
[2024-03-22] MEDS: DiphenhydrAMINE 50 MG/ML Syringe 25 MG IV (02:33)
--- NOTE | 2024-03-22 02:35 | ED.RN ---
Pt called out c/o itching. This RN walked in and noticed hives on one arm. Vancomycin was stopped, dr Sun was informed. Appropriate meds were ordered, see MAR.
[2024-03-22] MEDS: Cephalexin 250 MG Capsule 500 MG PO (03:08)
== END 2024-03-22 03:14 | disposition home or self-care (01) ==
PROVIDERS: Emergency Provider Emergency Medicine; PCP Internal Medicine; Visit Provider Emergency Medicine
DX: L03.114 Cellulitis of left upper limb (principal); E11.9 Type 2 diabetes mellitus without complications; I10 Essential (primary) hypertension; E78.00 Pure hypercholesterolemia, unspecified; F17.290 Nicotine dependence, other tobacco product, uncomplicated; S50.812A Abrasion of left forearm, initial encounter; J45.909 Unspecified asthma, uncomplicated; X58.XXXA Exposure to other specified factors, initial encounter
CPT/HCPCS: 73080; 80048; 85025; 96365; 96366; 96375; 99283; J7040; J7050; A4216

== ENCOUNTER 2024-10-14 22:11 | Emergency (ER) | payer MEDICAID, SELFPAY ==
[2024-10-14 22:15] VITALS: BP 149/106; PULSE 82; RESP 18; TEMP 36.7; O2SAT 99; BMI 44.5
--- NOTE | 2024-10-14 22:41 | EKG12_ITS ---
Test Reason : HYPOGLYCEMIA Blood Pressure : */* mmHG Vent. Rate : 73 BPM Atrial Rate : 73 BPM P-R Int : 180 ms QRS Dur : 98 ms QT Int : 400 ms P-R-T Axes : 26 32 35 degrees QTcB Int : 440 ms Sinus rhythm with marked sinus arrhythmia Otherwise normal ECG Confirmed by Galen Stone ([id number]), acquisition editor ROB HATCH ([id number]) on 10/15/2024 10:00:34 AM Referred By: Confirmed By: Galen Stone
--- NOTE | 2024-10-14 22:41 | RAD_ITS ---
PROCEDURE: CHEST PA AND LATERAL REASON FOR EXAM: Chest pain. TECHNIQUE: Frontal and lateral views of the chest. COMPARISON: Chest x-ray from 08/12/2022. FINDINGS: Cardiac size and pulmonary vasculature are within normal limits. No consolidation, pleural effusion, or pneumothorax is present. RAD/Chest PA and Lateral IMPRESSION: No acute cardiopulmonary process. Reading [facility]
--- NOTE | 2024-10-14 22:47 | EX.ED.DYSGE1 ---
HPI History of Present Illness Chief Complaint: Hypoglycemia Narrative Narrative: Patient is a 23-year-old female with past medical history of anxiety, depression, asthma, diabetes on Trulicity who presented to the emergency department with a chief complaint of chest pain and recurrent low blood glucose. States that no matter what she does her sugar does not go above 120. States that earlier today before work around 10:00 she ate and noted that she did not feel well about an hour into her work. She states that she checked her sugar and was noted to be around 50. Patient states that she has been trying to stay on top of it throughout the day. States that she ate dinner tonight she ate a lunch meat sandwich chips cookie and had a drink. She states that about an hour prior to arrival here her glucose was noted to be 60. She states that she got her Trulicity shot yesterday. [facility] Medical History Poor appetite Wears glasses Depression Anxiety Diabetes Low iron Easy bruising Injury of head and neck Migraine headache Dietary restriction Vapes nicotine containing substance Asthma Shortness of breath on exertion History of pain when walking History of edema Cardiology follow-up encounter Hypertension Gastroenteritis Screening for thyroid disorder Dermatitis Hemoptysis Cough Cubital tunnel syndrome on left Ulnar neuropathy Preoperative evaluation to rule out surgical contraindication Migraine Type 2 diabetes mellitus Post concussion syndrome Hypersomnia Left shoulder pain Thyromegaly Thyromegaly Vision problems High cholesterol Chronic back pain Right knee pain Generalized anxiety disorder with panic attacks Generalized anxiety disorder Obesity (BMI 30-39.9) Paresthesia Low back pain Shortness of breath Left ventricular noncompaction Pneumonia Asthma Essential hypertension Insomnia History of migraine Diabetes Depression Home Medications ?Medication ?Instructions ?Recorded ?Last Taken ?Type blood-glucose sensor (FreeStyle #1 ea 05/03/24 Unknown History Gualberto 3 Sensor device) cholecalciferol (vitamin D3) 125 125 mcg PO QDAY 05/03/24 Unknown History mcg (5,000 unit) tablet cyanocobalamin (vitamin B-12) 1,000 mcg PO QDAY 05/03/24 Unknown History 1,000 mcg tablet famotidine 40 mg tablet 40 mg PO QDAY 05/03/24 Unknown History prednisone 50 mg tablet 50 mg PO QDAY 05/03/24 Unknown History triamcinolone acetonide 0.1 % 1 applic topical BID PRN rash #30 05/03/24 Unknown Rx topical ointment grams dulaglutide 3 mg/0.5 mL 3 mg (0.5 mL) subcut QWEEK #2 mL 07/19/24 Unknown Rx subcutaneous pen injector (Trulicity) sumatriptan succinate 25 mg tablet See Rx Instructions PO .COMPLEX 07/19/24 Unknown Rx (Imitrex) #14 tabs topiramate 25 mg tablet (Topamax) 25 mg PO BID #60 tabs 07/19/24 Unknown Rx hydroxyzine HCl 25 mg tablet 25 mg PO BID PRN anxiety #90 tabs 08/21/24 Unknown Rx quetiapine 50 mg tablet (Seroquel) 50 mg PO QHS #30 tabs 09/09/24 Unknown Rx Allergy/AdvReac Type Severity Reaction Status Date / Time vancomycin Allergy Mild Hives Verified 10/14/24 22:13 amoxicillin Allergy Unknown unknown Verified 10/14/24 22:13 azithromycin (From Zithromax Allergy Unknown unknown Verified 10/14/24 22:13 Z-Clyde) Penicillins Allergy Unknown unknown Verified 10/14/24 22:13 Family History Father No problems noted. Grandfather Diabetes Grandmother Hypertension Aunt Hypertension Other Anxiety Arthritis Asthma Depression Osteoporosis Respiratory disease Severe allergy Surgical History History of nasal cauterization History of tonsillectomy and adenoidectomy Hx of myringotomy History of nasal cauterization Social History Smoking Status: Current every day smoker tobacco type: e-cigarettes Tobacco: How many years used: 4 how long ago did patient quit smokin09/04/2020 second hand exposure: No alcohol intake: current alcohol intake frequency: a few times a month Alcohol type: hard liquor substance use type: does not use caffeine: No what type of physical activity do you participate in: walking frequency: daily seatbelt use: sometimes additional social history: DOES NOT TAKE ASPIRIN DOES TAKE IBUPROFEN NEEDED ROS ROS ED ROS Narrative Constitutional: Denies any fevers, chills, headaches, lightness, dizziness Eyes: Denies change in vision double vision blurry vision Cardiovascular: Denies chest pain denies palpitations Respiratory: Denies coughing wheezing shortness of breath Abdomen: Denies abdominal pain nausea vomit diarrhea : Denies any urinary symptoms Neurological: Denies any numbness, weakness, tingling Musculoskeletal: Denies back pain Skin: Denies rashes or lesions EXAM Physical Exam Narrative Exam Narrative: General: Patient was lying in bed rest comfortably did not appear to be in acute distress Head: Atraumatic, normocephalic Eyes ears, nose, throat: PERRL bilaterally, EOMI bilaterally, no conjunctival injection noted, uvula midline, no concern for peritonsillar abscess, no exudates noted no sublingual swelling Neck: Soft, supple, trachea midline, patient has full range of motion of her neck Cardiovascular: Patient following commands regular rate and rhythm no murmurs gallops rubs noted Respiratory: Clear to auscultation bilaterally no rales rhonchi or wheezes noted Abdomen: Soft, nondistended, nontender to palpation, bowel sounds present x 4 Extremities: +5/5 strength noted in the bilateral upper and lower extremities R, radial pulses +2/4 in the bilateral extremities, no pedal edema no exam Neurological: Patient following commands knew that she was at [facility] the year is 2023 Skin: Warm, dry, tact no rashes or lesions noted Const Vital Signs: 10/14/24 22:13 10/14/24 22:15 10/14/24 22:41 Temperature 98.1 F Temperature Source Temporal Pulse Rate 82 Respiratory Rate 18 Respiratory Effort Normal Non-Labored Respiratory Pattern Normal Blood Pressure 149/106 H Blood Pressure Mean 120 Pulse Ox 99 Oxygen Delivery Method Room Air Room Air 10/15/24 00:13 Temperature Temperature Source Pulse Rate 76 Respiratory Rate 18 Respiratory Effort Respiratory Pattern Blood Pressure 136/99 H Blood Pressure Mean 111 Pulse Ox 99 Oxygen Delivery Method MDM MDM MDM Narrative Medical decision making narrative: Patient is a 23-year-old female who presented to the emerged part with a chief complaint of chest pain and recurrent hypoglycemia after receiving her Trulicity shot yesterday. On the differential diagnose includes but not limited to medication side effect from Trulicity, hyperthyroidism, ACS. Once workup is obtained reviewed she will be reevaluated Patient CBC reviewed and showed no evidence leukocytosis white blood count normal at 9.9, hemoglobin 12.5, plate count was noted to be 273. Patient sodium normal 143, potassium normal at 3.6, creatinine normal at 0.72. Patient glucose was noted to be 108 on her chemistry, troponin normal at 5. Patient's EKG reviewed and independently turbid of myself showed sinus rhythm with a rate of 73 bpm. Patient TSH was 4.22 with a free T4 and T3 normal at 0.95 and 3.4 respectively. Patient's chest x-ray reviewed by myself and by radiology showed no acute cardiopulmonary processes. Patient was observed here in the emergency department for several hours and was made n.p.o. on repeat glucose testing she was noted to be normoglycemic at 88. Did discuss results with the patient she would like to go home at this point time. Patient was advised to eat something before going to bed and wake up with her friend/significant other every few hours to check her glucose. They are advised to return with worsening symptoms and concerns. They are agreeable this plan all question concerns answered she was discharged home in stable condition. Lab Data Labs: Laboratory Results - last 24 hr 10/14/24 10/14/24 10/15/24 22:36 23:02 00:56 WBC 9.9 RBC 3.78 L Hgb 12.5 Hct 35.3 L MCV 93.4 MCH 33.1 H MCHC 35.4 RDW Std Deviation 42.0 RDW Coeff of [place] 12.3 Plt Count 273 MPV 8.4 Immature Gran % (Auto) 0.300 Neut % (Auto) 55.9 Lymph % (Auto) 38.9 [place] % (Auto) 3.5 Eos % (Auto) 1.2 Baso % (Auto) 0.2 Absolute Neuts (auto) 5.5 Absolute Lymphs (auto) 3.85 Nucleated RBC % 0 Sodium 143 Potassium 3.6 Chloride 108 H Carbon Dioxide 30.0 Anion Gap 5 BUN 9 Creatinine 0.72 Estim Creat Clear Calc 189.31 Est GFR (MDRD) Af Amer 127 Est GFR (MDRD) Non-Af 105 BUN/Creatinine Ratio 12.6 Glucose 108 H Calcium 8.9 Troponin I High Sens 5 TSH 4.220 H Free T4 0.95 Free T3 pg/dL 3.4 POC Glucose 98 88 Radiography Diagnostic Testing: Clinical Impression(s) from Imaging Studies Chest X-Ray 10/14/24 22:41 IMPRESSION: No acute cardiopulmonary process. Reading Location: [facility] Discharge Plan Triage Chief Complaint: Hypoglycemia ED Provider: Shlomo Santizo Dx/Rx/DC Orders Clinical Impression: Hypoglycemia, Diabetes Prescriptions: No Action cyanocobalamin (vitamin B-12) 1,000 mcg tablet 1,000 mcg PO QDAY famotidine 40 mg tablet 40 mg PO QDAY prednisone 50 mg tablet 50 mg PO QDAY cholecalciferol (vitamin D3) 125 mcg (5,000 unit) tablet 125 mcg PO QDAY (DME) FreeStyle Gualberto 3 Sensor Device See Rx Instructions .ROUTE .MEDSUPPLY Qty: 1 Patient Comments: [NO ORIGINAL SIG] Rx Instructions: As directed triamcinolone acetonide 0.1 % ointment 1 applic topical BID PRN (Reason: rash) Qty: 30 1RF topiramate [Topamax] 25 mg tablet 25 mg PO BID Qty: 60 1RF Rx Instructions: Take QHS x 2 weeks then increase to BID Trulicity 3 mg/0.5 mL pen injector 3 mg subcut QWEEK Qty: 2 0RF sumatriptan succinate [Imitrex] 25 mg tablet See Rx Instructions PO .COMPLEX Qty: 14 2RF Rx Instructions: take 1 tab at onset of headache; if no relief may repeat 1 tab after at least 2 hrs; max = 4 tabs/24 hr PO hydroxyzine HCl 25 mg tablet 25 mg PO BID PRN (Reason: anxiety) Qty: 90 1RF quetiapine [Seroquel] 50 mg tablet 50 mg PO QHS Qty: 30 1RF Primary Care Provider: Delma Amos Referrals: Delma Amos MD [Primary Care Provider] - Activity Restrictions/Additional Instructions: 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 Admission sure you eat something prior to going to bed. Wake up every 1-2 hours to check your glucose. Return with worsening symptoms or concerns. Your glucose remained normal after several hours of not having any oral intake here in the emergency department Print Language: Belarusian Disposition Disposition: Home, Self Care
[2024-10-14 22:55] LABS: Bedside Glucose 98 mg/dL (74-106)
[2024-10-14 23:14] LABS: Absolute Lymphocyte Count 3.85 X10^3/uL (0.83-4.51); Absolute Neutrophil Count 5.5 X10^3/uL (2.0-7.7); Basophil# 0.02 X10^3/uL; Basophil% 0.2 % (0-1); Eosinophil# 0.12 X10^3/uL; Eosinophils% 1.2 % (0-5); Hematocrit 35.3 % (37-47); Hemoglobin 12.5 g/dL (12.0-15.0); Lymphocyte # 3.85 X10^3/ul (0.83-4.51); Lymphocyte % 38.9 % (19-41); Mean Corp Hgb Conc 35.4 g/dL (32-36); Mean Corpuscular Hgb 33.1 pg (27.0-32.0); Mean Corpuscular Volume 93.4 fL (81-99); Mean Platelet Vol. 8.4 fl (6.2-12.0); Monocyte# 0.35 X10^3/uL; Monocyte% 3.5 % (0-10); NRBC Flagged by Analyzer 0 % (0-5); Neutrophil # 5.52 X10^3/uL (2.7-7.7); Neutrophil % 55.9 % (47-70); Platelet Count 273 K/mm3 (150-450); RBC Distribution Width CV 12.3 % (11.6-14.6); Red Blood Count 3.78 M/mm3 (4.2-5.4); White Blood Count 9.9 K/mm3 (4.4-11.0)
[2024-10-14 23:37] LABS: Anion Gap 5 (5-15); BUN 9 mg/dL (7-18); BUN/Creat Ratio 12.6 RATIO (10-20); Calcium,Total 8.9 mg/dL (8.5-10.1); Chloride 108 mmol/L (98-107); Creatinine, Serum 0.72 mg/dL (0.55-1.02); EST Glomerular Filtration Rate 105 mL/min (>60); Est Glom Filt Rate - Afr Amer 127 mL/min (>60); Estimated Creatinine Clearance 189.31 ml/min; Free T3 3.4 pg/mL (2.18-3.98); Glucose 108 mg/dL (74-106); Potassium 3.6 mmol/L (3.5-5.1); Sodium Level 143 mmol/L (136-145); T4 Free Direct 0.95 ng/dL (0.76-1.46); Troponin-I HS 5 pg/mL (3.0-54.0)
[2024-10-15 00:13] VITALS: BP 136/99; PULSE 76; RESP 18; O2SAT 99
[2024-10-15 01:14] LABS: Bedside Glucose 88 mg/dL (74-106)
[2024-10-15 01:52] VITALS: BP 147/100; PULSE 95; RESP 18; TEMP 36.7; O2SAT 99
== END 2024-10-15 01:53 | disposition home or self-care (01) ==
PROVIDERS: Emergency Provider Emergency Medicine; PCP Internal Medicine; Visit Provider Emergency Medicine
DX: E11.649 Type 2 diabetes mellitus with hypoglycemia without coma (principal); I10 Essential (primary) hypertension; F41.9 Anxiety disorder, unspecified; E78.00 Pure hypercholesterolemia, unspecified; F32.A Depression, unspecified; J45.909 Unspecified asthma, uncomplicated; G43.909 Migraine, unspecified, not intractable, without status migrainosus; F17.290 Nicotine dependence, other tobacco product, uncomplicated; Z88.0 Allergy status to penicillin; Z88.1 Allergy status to other antibiotic agents; Z79.85 Long-term (current) use of injectable non-insulin antidiabetic drugs; Z79.899 Other long term (current) drug therapy
CPT/HCPCS: 71046; 80048; 82962; 84439; 84443; 84481; 84484; 85025; 87631; 93005; 99283; A4216

== ENCOUNTER → 2024-11-15 | Outpatient (CLI) | payer MEDICAID, SELFPAY | END | disposition home or self-care (01) | LOC: LABSPEC 11:53 | PROVIDERS: PCP Internal Medicine; Referring Provider Internal Medicine; Visit Provider Internal Medicine | DX: J02.9 Acute pharyngitis, unspecified (principal) | CPT/HCPCS: 87631 ==

== ENCOUNTER 2025-01-17 20:44 | Emergency (ER) | payer MEDICAID, SELFPAY ==
[2025-01-17 20:44] VITALS: BP 166/114; PULSE 88; RESP 16; TEMP 36.7; O2SAT 96; BMI 42.9
--- NOTE | 2025-01-17 20:57 | EX.ED.DYSGE1 ---
HPI <ALEJANDRA Fry - Last Filed: 01/17/25 21:56> History of Present Illness Chief Complaint: Chest Pain Narrative Narrative: 24-year-old female with past medical history of asthma, diabetes has had 2 days of subjective fever, headache, cough, wheezing, and chest pain. She has been using her albuterol inhaler. She has no exertional or pleuritic chest pain, it just hurts when she coughs. No vomiting. She had a few episodes of loose nonbloody stools yesterday. No urinary symptoms. She vapes nicotine. PFS <ALEJANDRA Fry - Last Filed: 01/17/25 21:56> [facility] Medical History (Updated 01/17/25 @ 21:16 by ALEJANDRA Fry) Upper respiratory infection Poor appetite Wears glasses Depression Anxiety Diabetes Low iron Easy bruising Injury of head and neck Migraine headache Dietary restriction Vapes nicotine containing substance Asthma Shortness of breath on exertion History of pain when walking History of edema Cardiology follow-up encounter Hypertension Gastroenteritis Screening for thyroid disorder Dermatitis Hemoptysis Cough Cubital tunnel syndrome on left Ulnar neuropathy Preoperative evaluation to rule out surgical contraindication Migraine Type 2 diabetes mellitus Post concussion syndrome Hypersomnia Left shoulder pain Thyromegaly Thyromegaly Vision problems High cholesterol Chronic back pain Right knee pain Generalized anxiety disorder with panic attacks Generalized anxiety disorder Obesity (BMI 30-39.9) Paresthesia Low back pain Shortness of breath Left ventricular noncompaction Pneumonia Asthma Essential hypertension Insomnia History of migraine Diabetes Depression Home Medications ?Medication ?Instructions ?Recorded ?Last Taken ?Type blood-glucose sensor (SkillshareStyle #1 ea 05/03/24 Unknown History Gualberto 3 Sensor device) triamcinolone acetonide 0.1 % 1 applic topical BID PRN rash #30 05/03/24 Unknown Rx topical ointment grams sumatriptan succinate 25 mg tablet See Rx Instructions PO .COMPLEX 07/19/24 Unknown Rx (Imitrex) #14 tabs hydroxyzine HCl 25 mg tablet 25 mg PO BID PRN anxiety #90 tabs 08/21/24 Unknown Rx quetiapine 50 mg tablet (Seroquel) 50 mg PO QHS #60 tabs 10/31/24 Unknown Rx blood sugar diagnostic (OneTouch #10 ea 11/06/24 Unknown History Verio test strips) blood-glucose meter (OneTouch #1 ea 11/06/24 Unknown History Verio Flex Meter) dulaglutide 1.5 mg/0.5 mL 1.5 mg subcut QWEEK 11/06/24 Unknown History subcutaneous pen injector (Trulicity) lancets 30 gauge (OneTouch Delica #100 ea 11/06/24 Unknown History Plus Lancet) lorazepam 1 mg capsule,extended 1 mg PO QDAY 11/06/24 Unknown History release 24 hr cholecalciferol (vitamin D3) 125 125 mcg PO QDAY #90 tabs 11/15/24 Unknown Rx mcg (5,000 unit) tablet cyanocobalamin (vitamin B-12) 1,000 mcg PO QDAY #90 tabs 11/15/24 Unknown Rx 1,000 mcg tablet famotidine 40 mg tablet 40 mg PO QDAY #90 tabs 11/15/24 Unknown Rx losartan 25 mg tablet 25 mg PO QDAY #30 tabs 11/15/24 Unknown Rx topiramate 25 mg tablet (Topamax) 75 mg (3 x 25 mg) PO BID 1 month 11/15/24 Unknown Rx #180 tabs albuterol sulfate 90 mcg/actuation 2 puff inhalation Q6H PRN 01/03/25 Unknown Rx aerosol inhaler Shortness Of Breath Or Wheezing #8.5 grams benzonatate 200 mg capsule 200 mg PO BID PRN cough 7 days #14 01/17/25 Unknown Rx caps Allergy/AdvReac Type Severity Reaction Status Date / Time vancomycin Allergy Mild Hives Verified 01/17/25 20:44 amoxicillin Allergy Unknown unknown Verified 01/17/25 20:44 azithromycin (From Zithromax Allergy Unknown unknown Verified 01/17/25 20:44 Z-Clyde) Penicillins Allergy Unknown unknown Verified 01/17/25 20:44 Family History Father No problems noted. Grandfather Diabetes Grandmother Hypertension Aunt Hypertension Other Anxiety Arthritis Asthma Depression Osteoporosis Respiratory disease Severe allergy Surgical History History of nasal cauterization History of tonsillectomy and adenoidectomy Hx of myringotomy History of nasal cauterization Social History Smoking Status: Current every day smoker tobacco type: e-cigarettes Tobacco: How many years used: 4 how long ago did patient quit smokin09/04/2020- pt vapes second hand exposure: No alcohol intake: current alcohol intake frequency: a few times a month Alcohol type: hard liquor substance use type: does not use caffeine: No what type of physical activity do you participate in: walking frequency: daily seatbelt use: sometimes additional social history: DOES NOT TAKE ASPIRIN DOES TAKE IBUPROFEN NEEDED pt admits to vaping, denies marijuana use, denies edibles ROS <ALEJANDRA Fry - Last Filed: 01/17/25 21:56> ROS ED ROS Narrative Constitutional: Positive for fever, chills, malaise. Respiratory: Positive for shortness of breath, cough. GI: Negative for abdominal pain, nausea, vomiting. Neuro: Positive for headache. EXAM <ALEJANDRA Fry - Last Filed: 01/17/25 21:56> Physical Exam Narrative Exam Narrative: CONST: Patient sitting in no acute distress. EYES: Normal inspection. ENT: Normal inspection, moist mucous membranes. NECK: Normal inspection. RESP: No respiratory distress, mild expiratory wheezing throughout. CVS: Regular rate and rhythm, no murmur, no gallop. SKIN: Color normal, no rash, warm, dry, intact. EXTREMITIES: Normal appearance, no pedal edema. NEURO: Alert and answering questions appropriately. PSYCH: Normal affect. Const Vital Signs: 01/17/25 20:44 01/17/25 20:57 01/17/25 21:03 Temperature 98.1 F Temperature Source Oral Pulse Rate 88 81 Respiratory Rate 16 18 Respiratory Effort Short of Breath Respiratory Pattern Normal Blood Pressure 166/114 H Blood Pressure Mean 131 Pulse Ox 96 Oxygen Delivery Method Room Air 01/17/25 21:36 01/17/25 22:05 Temperature 98.1 F Temperature Source Pulse Rate 78 81 Respiratory Rate 23 H Respiratory Effort Respiratory Pattern Blood Pressure 149/86 H 129/95 H Blood Pressure Mean 107 106 Pulse Ox 95 Oxygen Delivery Method <Dr. Fortunato Medina DO - Last Filed: 01/17/25 22:10> Physical Exam Const Vital Signs: 01/17/25 20:44 01/17/25 20:57 01/17/25 21:03 Temperature 98.1 F Temperature Source Oral Pulse Rate 88 81 Respiratory Rate 16 18 Respiratory Effort Short of Breath Respiratory Pattern Normal Blood Pressure 166/114 H Blood Pressure Mean 131 Pulse Ox 96 Oxygen Delivery Method Room Air 01/17/25 21:36 01/17/25 22:05 Temperature 98.1 F Temperature Source Pulse Rate 78 81 Respiratory Rate 23 H Respiratory Effort Respiratory Pattern Blood Pressure 149/86 H 129/95 H Blood Pressure Mean 107 106 Pulse Ox 95 Oxygen Delivery Method [facility] <Faby Niño PA - Last Filed: 01/17/25 21:56> [facility] Narrative Medical decision making narrative: 24-year-old female presents with constellation of fever, chills, and upper respiratory symptoms that flared her asthma symptoms. She appears well and nontoxic. Vital signs noted for hypertension. She speaking in full sentences without distress and is 96% on room air. She has mild to moderate diffuse expiratory wheezing from her asthma. She states she is prone to pneumonia. Differential includes viral URI versus pneumonia so I will order chest x-ray and DuoNebs for her symptoms. On my review 2 view chest x-ray shows no acute infiltrate. After DuoNeb she has improved aeration. Repeat BMP is normal. She has a viral URI with mild asthma exacerbation. She will continue her albuterol inhaler and I prescribed Tessalon Perles. She does not have severe symptoms and since she is diabetic I we will avoid steroids at this time. Return precautions were discussed and she was discharged in stable condition. Radiography Diagnostic Testing: Clinical Impression(s) from Imaging Studies Chest X-Ray 01/17/25 21:00 IMPRESSION: No acute cardiopulmonary process. Reading Location: [facility] <Dr. Fortunato Medina DO - Last Filed: 01/17/25 22:10> [facility] Radiography Chest X-Ray - ED: 2 View, Read by ED Physician, Read by Radiologist and No Acute Disease Diagnostic Testing: Clinical Impression(s) from Imaging Studies Chest X-Ray 01/17/25 21:00 IMPRESSION: No acute cardiopulmonary process. Reading Location: [facility] PA and lateral chest x-ray was obtained. There are 2 views. On my independent interpretation, lung núñez are clear. There is normal cardiac silhouette. Bony thorax is normal. There is no acute process noted. Radiologist also interpreted the x-ray and agrees. Treatment and Re-Evaluation :: I have personally performed a face to face assessment of the patient and have reviewed the DARLENE Note. I performed a substantive portion of the visit including all aspects of the following. My mancia findings include: History: Patient presents with chest pain, cough, and shortness of breath that began yesterday. Patient states it is gradually getting worse. Patient describes her pain as a burning sensation. Patient states it is worse with coughing and better with drinking. Patient admits to some subjective fevers. Patient admits to some shortness of breath. Patient denies any nausea or vomiting. Patient denies any diaphoresis. Exam: Vital signs are stable except for an elevated blood pressure 166/114. Patient is afebrile. Patient is in no acute distress. Oral mucosa is pink and moist. Neck is supple. Trachea is midline. There is no JVD. Heart was regular rate and rhythm. Lungs showed few expiratory wheezes. There is good respiratory effort noted. Abdomen is soft. Bowel sounds are normal. There is no tenderness. Cranial nerves II through XII are intact. There are no focal motor or sensory deficits. Medical Decision Making: Differential diagnosis includes pneumonia, bronchitis, viral illness, upper respiratory infection, and asthma exacerbation. Chest x-ray will be obtained to assess for pneumonia and bronchitis. Patient was given a DuoNeb aerosol here. PA and lateral chest x-ray was obtained. There are 2 views. On my independent interpretation, lung núñez are clear. There is normal cardiac silhouette. Bony thorax is normal. There is no acute process noted. Radiologist also interpreted the x-ray and agrees. Patient was advised of her findings. Patient was instructed to follow-up with her primary care physician in 5 to 7 days. Patient was instructed to return if worse in any way. Patient understood and was agreeable with the plan. All questions were answered. Discharge Plan Triage Chief Complaint: Chest Pain ED Midlevel Provider: Faby Niño ED Provider: Fortunato Medina Dx/Rx/DC Orders Clinical Impression: Acute URI, Asthma exacerbation Instructions: ED URI, Viral, No Abx (Adult), Asthma Prescriptions: New benzonatate 200 mg capsule 200 mg PO BID PRN (Reason: cough) 7 Days Qty: 14 0RF No Action (DME) FreeStyle Gualberto 3 Sensor Device See Rx Instructions .ROUTE .MEDSUPPLY Qty: 1 Patient Comments: [NO ORIGINAL SIG] Rx Instructions: As directed triamcinolone acetonide 0.1 % ointment 1 applic topical BID PRN (Reason: rash) Qty: 30 1RF sumatriptan succinate [Imitrex] 25 mg tablet See Rx Instructions PO .COMPLEX Qty: 14 2RF Rx Instructions: take 1 tab at onset of headache; if no relief may repeat 1 tab after at least 2 hrs; max = 4 tabs/24 hr PO losartan 25 mg tablet 25 mg PO QDAY Qty: 30 3RF topiramate [Topamax] 25 mg tablet 75 mg PO BID 30 Days Qty: 180 1RF Rx Instructions: Take 50 mg at night and 25 mg in the morning. famotidine 40 mg tablet 40 mg PO QDAY Qty: 90 1RF cholecalciferol (vitamin D3) 125 mcg (5,000 unit) tablet 125 mcg PO QDAY Qty: 90 1RF cyanocobalamin (vitamin B-12) 1,000 mcg tablet 1,000 mcg PO QDAY Qty: 90 1RF (DME) blood-glucose meter [OneTouch Verio Flex meter] Misc See Rx Instructions .ROUTE .MEDSUPPLY Qty: 1 Rx Instructions: As directed (DME) OneTouch Verio test strips Strip See Rx Instructions .ROUTE BID Qty: 10 Rx Instructions: As directed (DME) lancets [OneTouch Delica Plus Lancet] 30 gauge misc See Rx Instructions .ROUTE BID Qty: 100 Rx Instructions: As directed Trulicity 1.5 mg/0.5 mL pen injector 1.5 mg subcut QWEEK lorazepam 1 mg capsule,extended release 24hr 1 mg PO QDAY hydroxyzine HCl 25 mg tablet 25 mg PO BID PRN (Reason: anxiety) Qty: 90 1RF quetiapine [Seroquel] 50 mg tablet 50 mg PO QHS Qty: 60 1RF albuterol sulfate 90 mcg/actuation HFA aerosol inhaler 2 puff INHALATION Q6H PRN (Reason: Shortness Of Breath Or Wheezing) Qty: 8.5 1RF Primary Care Provider: Delma Amos Referrals: Delma Amos MD [Primary Care Provider] - Activity Restrictions/Additional Instructions: Thanks for letting us take care of you today. Your chest x-ray showed no signs of pneumonia. I think you have a viral illness causing upper respiratory symptoms. Continue use of your inhaler and I prescribed Tessalon Perles which can help with cough. You can also take [id number] cough medication. Take Tylenol or ibuprofen as needed for fever or pain. Viral illnesses usually last 7 to 10 days. If you have significantly worsening shortness of breath/asthma symptoms please come back to the ER. Print Language: Cape Verdean Disposition Disposition: Home, Self Care
--- NOTE | 2025-01-17 21:00 | RAD_ITS ---
EXAM: XR Chest, 2 Views CLINICAL INDICATION: COUGH TECHNIQUE: Frontal and lateral views of the chest. COMPARISON: No relevant prior studies available. FINDINGS: LUNGS AND PLEURAL SPACES: Unremarkable. No consolidation. No pneumothorax. HEART: Unremarkable. No cardiomegaly. MEDIASTINUM: Unremarkable. Normal mediastinal contour. BONES/JOINTS: Unremarkable. No acute fracture. RAD/Chest PA and Lateral IMPRESSION: No acute cardiopulmonary process. Reading Location: [id number]
[2025-01-17 21:03] VITALS: PULSE 81; RESP 18
[2025-01-17] MEDS: Ipratropium/Albuterol Sulfate 3 ML AMPUL.NEB INHALATION (21:03)
[2025-01-17 21:36] VITALS: BP 149/86; PULSE 78
[2025-01-17 22:05] VITALS: BP 129/95; PULSE 81; RESP 23; TEMP 36.7; O2SAT 95
== END 2025-01-17 22:13 | disposition home or self-care (01) ==
PROVIDERS: Emergency Provider Emergency Medicine; PCP Internal Medicine; Visit Provider Emergency Medicine
DX: J06.9 Acute upper respiratory infection, unspecified (principal); E11.9 Type 2 diabetes mellitus without complications; J45.901 Unspecified asthma with (acute) exacerbation; E78.00 Pure hypercholesterolemia, unspecified; I10 Essential (primary) hypertension; F17.290 Nicotine dependence, other tobacco product, uncomplicated
CPT/HCPCS: 71046; 94640; 99282

== ENCOUNTER 2025-03-18 11:01 | Emergency (ER) | payer MEDICAID, SELFPAY ==
[2025-03-18 11:01] VITALS: BP 133/112; PULSE 77; RESP 16; TEMP 36.9; O2SAT 98; BMI 42.3
--- NOTE | 2025-03-18 11:29 | ED.VIS.BACK ---
HPI History of Present Illness Chief Complaint: Back Narrative Narrative: Chief complaint and HPI: Lumbar back pain. 24-year-old female with past medical history of DM2, depression, migraines, anxiety, chronic back pain presents for evaluation of lumbar back pain. Patient states that she was dropping her kids off at daycare. States while getting in and out of the car she developed lumbar back pain-worse on the right. Describes it as crampy. Denies any trauma or injury. Denies numbness, weakness, urinary retention, stool or urinary incontinence, saddle anesthesia, recent invasive manipulation of the spine, intravenous drug use, or fever. Review of systems: See HPI Medications: As listed on the chart Allergies: As listed on the chart PFSH: Per chart Vital signs: As listed on the chart. Reviewed. Physical exam: Gen: A&O x3, NAD Head: Normocephalic, atraumatic Eyes: No sclera icterus, conjunctiva clear ENT: Moist mucous membranes Neck: Trachea midline, No JVD, full range of motion, nontender CV: RRR, no murmurs, no peripheral edema Resp: Lungs CTA BL, no w/r/c GI: Abd soft, non-distended, non-tender, no r/r/g Musc: Full ROM, no deformity, no midline spinal tenderness, no bony step-offs, tender to palpation of the paraspinal musculature of the lower lumbar spine-worse on the right compared to the left -recreates her pain-muscles are tense, strength +5/5 Skin: Warm, dry Neuro: Alert, oriented, grossly intact, sensation intact Psych: Cooperative, appropriate mood and affect [facility] Medical History (Updated 03/18/25 @ 12:[address] Dedrick Lagos, ) Upper respiratory infection Poor appetite Wears glasses Depression Anxiety Diabetes Low iron Easy bruising Injury of head and neck Migraine headache Dietary restriction Vapes nicotine containing substance Asthma Shortness of breath on exertion History of pain when walking History of edema Cardiology follow-up encounter Hypertension Gastroenteritis Screening for thyroid disorder Dermatitis Hemoptysis Cough Cubital tunnel syndrome on left Ulnar neuropathy Preoperative evaluation to rule out surgical contraindication Migraine Type 2 diabetes mellitus Post concussion syndrome Hypersomnia Left shoulder pain Thyromegaly Thyromegaly Vision problems High cholesterol Chronic back pain Right knee pain Generalized anxiety disorder with panic attacks Generalized anxiety disorder Obesity (BMI 30-39.9) Paresthesia Low back pain Shortness of breath Left ventricular noncompaction Pneumonia Asthma Essential hypertension Insomnia History of migraine Diabetes Depression Home Medications ?Medication ?Instructions ?Recorded ?Last Taken ?Type blood-glucose sensor (FreeStyle #1 ea 05/03/24 Unknown History Gualberto 3 Sensor device) triamcinolone acetonide 0.1 % 1 applic topical BID PRN rash #30 05/03/24 Unknown Rx topical ointment grams sumatriptan succinate 25 mg tablet See Rx Instructions PO .COMPLEX 07/19/24 Unknown Rx (Imitrex) #14 tabs hydroxyzine HCl 25 mg tablet 25 mg PO BID PRN anxiety #90 tabs 08/21/24 Unknown Rx quetiapine 50 mg tablet (Seroquel) 50 mg PO QHS #60 tabs 10/31/24 Unknown Rx blood sugar diagnostic (OneTouch #10 ea 11/06/24 Unknown History Verio test strips) blood-glucose meter (OneTouch #1 ea 11/06/24 Unknown History Verio Flex Meter) dulaglutide 1.5 mg/0.5 mL 1.5 mg subcut QWEEK 11/06/24 Unknown History subcutaneous pen injector (Trulicity) lancets 30 gauge (OneTouch Delica #100 ea 11/06/24 Unknown History Plus Lancet) lorazepam 1 mg capsule,extended 1 mg PO QDAY 11/06/24 Unknown History release 24 hr cholecalciferol (vitamin D3) 125 125 mcg PO QDAY #90 tabs 11/15/24 Unknown Rx mcg (5,000 unit) tablet cyanocobalamin (vitamin B-12) 1,000 mcg PO QDAY #90 tabs 11/15/24 Unknown Rx 1,000 mcg tablet famotidine 40 mg tablet 40 mg PO QDAY #90 tabs 11/15/24 Unknown Rx losartan 25 mg tablet 25 mg PO QDAY #30 tabs 11/15/24 Unknown Rx topiramate 25 mg tablet (Topamax) 75 mg (3 x 25 mg) PO BID 1 month 11/15/24 Unknown Rx #180 tabs albuterol sulfate 90 mcg/actuation 2 puff inhalation Q6H PRN 01/03/25 Unknown Rx aerosol inhaler Shortness Of Breath Or Wheezing #8.5 grams benzonatate 200 mg capsule 200 mg PO BID PRN cough 7 days #14 01/17/25 Unknown Rx caps cyclobenzaprine 5 mg tablet 5 mg PO TID PRN muscle spasm 3 03/18/25 Unknown Rx days #9 tabs Allergy/AdvReac Type Severity Reaction Status Date / Time vancomycin Allergy Mild Hives Verified 03/18/25 11:04 amoxicillin Allergy Unknown unknown Verified 03/18/25 11:04 azithromycin (From Zithromax Allergy Unknown unknown Verified 03/18/25 11:04 Z-Clyde) Penicillins Allergy Unknown unknown Verified 03/18/25 11:04 Family History Father No problems noted. Grandfather Diabetes Grandmother Hypertension Aunt Hypertension Other Anxiety Arthritis Asthma Depression Osteoporosis Respiratory disease Severe allergy Surgical History History of nasal cauterization History of tonsillectomy and adenoidectomy Hx of myringotomy History of nasal cauterization Social History Smoking Status: Current every day smoker tobacco type: e-cigarettes Tobacco: How many years used: 4 how long ago did patient quit smokin09/04/2020- pt vapes second hand exposure: No alcohol intake: current alcohol intake frequency: a few times a month Alcohol type: hard liquor substance use type: does not use caffeine: No what type of physical activity do you participate in: walking frequency: daily seatbelt use: sometimes additional social history: DOES NOT TAKE ASPIRIN DOES TAKE IBUPROFEN NEEDED pt admits to vaping, denies marijuana use, denies edibles EXAM Physical Exam Const Vital Signs: 03/18/25 11:01 03/18/25 11:46 Temperature 98.4 F Temperature Source Temporal Pulse Rate 77 Respiratory Rate 16 Blood Pressure 133/112 H 121/93 H Blood Pressure Mean 119 102 Pulse Ox 98 Oxygen Delivery Method Room Air MDM MDM MDM Narrative Medical decision making narrative: 24-year-old female with past medical history of DM2, depression, migraines, anxiety, chronic back pain presents for evaluation of lumbar back pain. Patient states that she was dropping her kids off at daycare. States while getting in and out of the car she developed lumbar back pain-worse on the right. Physical exam consistent with lumbar paraspinal musculature tenderness. Recreates her pain. There has been no trauma. There is nothing to suggest any infectious etiology. There is no neurologic findings to suggest an acute cauda equina syndrome, infectious etiology, or any acute radiculopathy. At this point I do not feel any emergent imaging such as x-rays or MRI are warranted. Patient symptoms will be treated. She would not be given a muscle relaxer given that she is driving. Will give IM Toradol. Muscle relaxers as needed for home. Patient's blood pressure improved with pain medicine. Patient stable to discharge home. Follow-up with primary care physician. Tylenol and Motrin as needed for pain. Prescription for muscle relaxers as needed. Recommended IcyHot and heating pad as well as gentle stretching. Return precautions explained. Patient confirmed understand the plan. Impression: 1. Lumbar back spasm Discharge Plan Triage Chief Complaint: Back ED Provider: Dedrick Lagos Dx/Rx/DC Orders Clinical Impression: Back muscle spasm Instructions: ED Muscle Spasm Prescriptions: New cyclobenzaprine 5 mg tablet 5 mg PO TID PRN (Reason: muscle spasm) 3 Days Qty: 9 0RF No Action (DME) [email or web address] Gualberto 3 Sensor Device See Rx Instructions .ROUTE .MEDSUPPLY Qty: 1 Patient Comments: [NO ORIGINAL SIG] Rx Instructions: As directed triamcinolone acetonide 0.1 % ointment 1 applic topical BID PRN (Reason: rash) Qty: 30 1RF sumatriptan succinate [Imitrex] 25 mg tablet See Rx Instructions PO .COMPLEX Qty: 14 2RF Rx Instructions: take 1 tab at onset of headache; if no relief may repeat 1 tab after at least 2 hrs; max = 4 tabs/24 hr PO losartan 25 mg tablet 25 mg PO QDAY Qty: 30 3RF topiramate [Topamax] 25 mg tablet 75 mg PO BID 30 Days Qty: 180 1RF Rx Instructions: Take 50 mg at night and 25 mg in the morning. famotidine 40 mg tablet 40 mg PO QDAY Qty: 90 1RF cholecalciferol (vitamin D3) 125 mcg (5,000 unit) tablet 125 mcg PO QDAY Qty: 90 1RF cyanocobalamin (vitamin B-12) 1,000 mcg tablet 1,000 mcg PO QDAY Qty: 90 1RF (DME) blood-glucose meter [OneTouch Verio Flex meter] Misc See Rx Instructions .ROUTE .MEDSUPPLY Qty: 1 Rx Instructions: As directed (DME) OneTouch Verio test strips Strip See Rx Instructions .ROUTE BID Qty: 10 Rx Instructions: As directed (DME) lancets [OneTouch Delica Plus Lancet] 30 gauge misc See Rx Instructions .ROUTE BID Qty: 100 Rx Instructions: As directed Trulicity 1.5 mg/0.5 mL pen injector 1.5 mg subcut QWEEK lorazepam 1 mg capsule,extended release 24hr 1 mg PO QDAY benzonatate 200 mg capsule 200 mg PO BID PRN (Reason: cough) 7 Days Qty: 14 0RF hydroxyzine HCl 25 mg tablet 25 mg PO BID PRN (Reason: anxiety) Qty: 90 1RF quetiapine [Seroquel] 50 mg tablet 50 mg PO QHS Qty: 60 1RF albuterol sulfate 90 mcg/actuation HFA aerosol inhaler 2 puff INHALATION Q6H PRN (Reason: Shortness Of Breath Or Wheezing) Qty: 8.5 1RF Primary Care Provider: Delma Amos Referrals: Delma Amos MD [Primary Care Provider] - 3-5 Days Activity Restrictions/Additional Instructions: You received Toradol here in the emergency department, no ibuprofen for 8 hours. Okay for Tylenol. IcyHot and heating pad as needed for pain. Recommend gentle stretching. Follow-up with primary care physician. Return back to the ED if symptoms change or worsen. Muscle relaxers as needed. Do not drive or operate heavy machinery while taking these. They can increase confusion, fatigue, falls. Print Language: Eritrean Disposition Disposition: Home, Self Care
[2025-03-18] MEDS: Ketorolac 30 MG/ML Syringe IM (11:39)
[2025-03-18 11:46] VITALS: BP 121/93
[2025-03-18 12:30] VITALS: BP 121/93; PULSE 77; RESP 16; TEMP 36.9; O2SAT 98
== END 2025-03-18 12:33 | disposition home or self-care (01) ==
PROVIDERS: Emergency Provider Surgery; PCP Internal Medicine; Visit Provider Surgery
DX: M62.830 Muscle spasm of back (principal); E11.40 Type 2 diabetes mellitus with diabetic neuropathy, unspecified; I10 Essential (primary) hypertension; F32.A Depression, unspecified; F41.1 Generalized anxiety disorder; M54.50 Low back pain, unspecified; G89.29 Other chronic pain; E78.00 Pure hypercholesterolemia, unspecified; J45.909 Unspecified asthma, uncomplicated; G43.909 Migraine, unspecified, not intractable, without status migrainosus; F17.290 Nicotine dependence, other tobacco product, uncomplicated; Z79.85 Long-term (current) use of injectable non-insulin antidiabetic drugs; Z79.899 Other long term (current) drug therapy
CPT/HCPCS: 96372; 99282; A4216

== ENCOUNTER 2025-04-08 23:13 | Emergency (ER) | payer MEDICAID, SELFPAY ==
[2025-04-08 23:14] VITALS: BP 144/88; PULSE 92; RESP 18; TEMP 36.6; O2SAT 98; BMI 41.5
--- NOTE | 2025-04-08 23:21 | EDS_ITS ---
HPI History of Present Illness Chief Complaint: Ear Problem [facility] Medical History (Updated 04/08/25 @ 23:[address] Timo Harris, DO) Acute back pain Upper respiratory infection Poor appetite Wears glasses Depression Anxiety Diabetes Low iron Easy bruising Injury of head and neck Migraine headache Dietary restriction Vapes nicotine containing substance Asthma Shortness of breath on exertion History of pain when walking History of edema Cardiology follow-up encounter Hypertension Gastroenteritis Screening for thyroid disorder Dermatitis Hemoptysis Cough Cubital tunnel syndrome on left Ulnar neuropathy Preoperative evaluation to rule out surgical contraindication Migraine Type 2 diabetes mellitus Post concussion syndrome Hypersomnia Left shoulder pain Thyromegaly Thyromegaly Vision problems High cholesterol Chronic back pain Right knee pain Generalized anxiety disorder with panic attacks Generalized anxiety disorder Obesity (BMI 30-39.9) Paresthesia Low back pain Shortness of breath Left ventricular noncompaction Pneumonia Asthma Essential hypertension Insomnia History of migraine Diabetes Depression Home Medications ?Medication ?Instructions ?Recorded ?Last Taken ?Type blood-glucose sensor (LizhiStyle #1 ea 05/03/24 Unknown History Gualberto 3 Sensor device) triamcinolone acetonide 0.1 % 1 applic topical BID PRN rash #30 05/03/24 Unknown Rx topical ointment grams sumatriptan succinate 25 mg tablet See Rx Instructions PO .COMPLEX 07/19/24 Unknown Rx (Imitrex) #14 tabs hydroxyzine HCl 25 mg tablet 25 mg PO BID PRN anxiety #90 tabs 08/21/24 Unknown Rx quetiapine 50 mg tablet (Seroquel) 50 mg PO QHS #60 ta bs 10/31/24 Unknown Rx blood sugar diagnostic (BranchTouch #10 ea 11/06/24 Unkno wn History Verio test strips) blood-glucose meter (BranchTouch #1 ea 11/06/24 Unknown H istory Verio Flex Meter) dulaglutide 1.5 mg/0.5 mL 1.5 mg subcut QWEEK 11/06/24 Unknown History subcutaneous pen injector (Trulicity) lancets 30 gauge (BranchTouch Delica #100 ea 11/06/24 Unk nown History Plus Lancet) lorazepam 1 mg capsule,extended 1 mg PO QDAY 11/06/24 Unknown History release 24 hr cholecalciferol (vitamin D3) 125 125 mcg PO QDAY #90 t abs 11/15/24 Unknown Rx mcg (5,000 unit) tablet cyanocobalamin (vitamin B-12) 1,000 mcg PO QDAY #90 ta bs 11/15/24 Unknown Rx 1,000 mcg tablet famotidine 40 mg tablet 40 mg PO QDAY #90 tabs 11/15 Unknown Rx losartan 25 mg tablet 25 mg PO QDAY #30 tabs 11/15 Unknown Rx topiramate 25 mg tablet (Topamax) 75 mg (3 x 25 mg) PO BID 1 month 11/15/24 Unknown Rx #180 tabs albuterol sulfate 90 mcg/actuation 2 puff inhalation Q 6H PRN 01/03/25 Unknown Rx aerosol inhaler Shortness Of Breath Or Wheez ing #8.5 grams benzonatate 200 mg capsule 200 mg PO BID PRN cough 7 d ays #14 01/17/25 Unknown Rx caps cyclobenzaprine 5 mg tablet 5 mg PO TID PRN muscle spa sm 3 03/18/25 Unknown Rx days #9 tabs meloxicam 15 mg tablet 15 mg PO QDAY PRN pain #60 t abs 03/20/25 Unknown Rx Allergy/AdvReac Type Severity Reaction Status Date / Time vancomycin Allergy Mild Hives Verified 04/08/25 23:14 amoxicillin Allergy Unknown unknown Verified 04/08/25 23:14 azithromycin (From Zithromax Allergy Unknown unknown Verified 04/08/25 23:14 Z-Clyde) Penicillins Allergy Unknown unknown Verified 04/08/25 23:14 Family History Father No problems noted. Grandfather Diabetes Grandmother Hypertension Aunt Hypertension Other Anxiety Arthritis Asthma Depression Osteoporosis Respiratory disease Severe allergy Surgical History History of nasal cauterization History of tonsillectomy and adenoidectomy Hx of myringotomy History of nasal cauterization Social History (Updated 04/08/25 @ 23:21 by Mariela Olmos) housing: house Smoking Status: Current every day smoker tobacco type: e-cigarettes Tobacco: How many years used: 4 how long ago did patient quit smokin09/04/2020- pt vapes second hand exposure: No alcohol intake: current alcohol intake frequency: a few times a month Alcohol type: hard liquor substance use type: does not use caffeine: No what type of physical activity do you participate in: walking frequency: daily seatbelt use: sometimes additional social history: DOES NOT TAKE ASPIRIN DOES TAKE IBUPROFEN NEEDED pt admits to vaping, denies marijuana use, denies edibles EXAM Physical Exam Const Vital Signs: 04/08/25 23:14 04/08/25 23:35 Temperature 98 F 98 F Temperature Source Temporal Pulse Rate 92 92 Respiratory Rate 18 18 Blood Pressure 144/88 H 144/88 H Blood Pressure Mean 106 106 Pulse Ox 98 98 Oxygen Delivery Method Room Air [facility] [place] Narrative Medical decision making narrative: HISTORY OF PRESENT ILLNESS: Chief complaint: Ear pain 24-year-old female presents with ear pain. Notes she felt something crawl into her ear last night. Noted buzzing noise. Notes today she had ear pain and resulting headache. Patient denies sudden onset or thunderclap headache, denies maximal intensity within 1 minute, vomiting, neck pain, stiffness, changes in vision, fever, history malignancy, syncope, or seizures associated with headache. REVIEW OF SYSTEMS: Pertinent positives: Ear pain, headache Pertinent negatives: Vomiting, loss of vision, focal weakness PHYSICAL EXAM: Nursing triage notes reviewed, Vital signs reviewed Constitutional: please see mdm HENT: MMM, left TM pearly naik, left external auditory canal patent. Right TM pearly naik, intact no sign of TM perforation, right external canal with a small pinpoint abrasion noted to the posterior wall. No active bleeding noted. Eyes: Pupils equal round and reactive to light, Extraocular muscles intact Neck: No stridor, no JVD, full neck ROM Lungs: Clear to auscultation, No wheezing or rales. No increased work of breathing, no conversational dyspnea, no accessory muscle use, no nasal flaring. No respiratory distress noted Heart: Regular rate and rhythm, No murmurs, No rubs and No gallops, 2+ distal pulses (radial, femoral, posterior tibial) in all extremities Abdomen: Soft, there is no tenderness, rigidity, rebound or guarding, no obvious peritoneal signs, no palpable pulsatile abdominal masses, no auscultated abdominal bruit Neuro: Alert and oriented x3, neuro exam at baseline, cranial nerves II through XII are intact. No pain with extraocular muscle movement. There is negative test of skew. 5 of 5 strength in upper and lower extremities in flexion extension. Intact sensation to light touch in upper and lower extremity dermat omes. No truncal or extremity ataxia. No dysdiadochokinesia. Normal gait. 2+ reflexes in upper and lower extremities. No meningeal signs. Negative Babinski. NIH of 0. Skin: No rash or lesions noted MEDICAL DECISION MAKING: Chief Complaint: please see HPI MDM Narrative: The patient was initially hemodynamically stable, afebrile and nontoxic- appearing. Exam with a small abrasion noted to the external auditory canal. No active bleeding noted. TM pearly naki and intact. I considered the following differential diagnosis: Ear foreign body, otitis media, otitis externa The patient's history and physical exam not consistent with acute life- threatening headache pathology. The patient and/or family, caregivers express understanding. The patient and/or family, caregivers agrees with the plan. Shared decision making: I will have a discussion with the patient and or visitors regarding risk/benefits of further testing or admission. They will be made aware of of the risk/benefits inherent in this decision they will be given the opportunity to voice understanding. Total critical care time today provided was at least 0 minutes. This excludes separately billable procedures. Critical care time (if documented) is secondary to the patient having high probability of clinically significant/life threatening deterioration in the patient's condition which required my urgent intervention. Impression: 1. Ear canal abrasion Dispo: Discharge home This note was generated with [employer] dictation software. It may contain incorrect words, spelling, and punctuation that were not noted in review of the chart prior to signing. Discharge Plan Triage Chief Complaint: Ear Problem ED Provider: Timo Harris Dx/Rx/DC Orders Clinical Impression: Ear canal abrasion Instructions: Anatomy of the Ear Prescriptions: No Action (DME) FreeStyle Gualberto 3 Sensor Device See Rx Instructions .ROUTE .MEDSUPPLY Qty: 1 Patient Comments: [NO ORIGINAL SIG] Rx Instructions: As directed triamcinolone acetonide 0.1 % ointment 1 applic topical BID PRN (Reason: rash) Qty: 30 1RF sumatriptan succinate [Imitrex] 25 mg tablet See Rx Instructions PO .COMPLEX Qty: 14 2RF Rx Instructions: take 1 tab at onset of headache; if no relief may repeat 1 tab after at least 2 hrs; max = 4 tabs/24 hr PO losartan 25 mg tablet 25 mg PO QDAY Qty: 30 3RF topiramate [Topamax] 25 mg tablet 75 mg PO BID 30 Days Qty: 180 1RF Rx Instructions: Take 50 mg at night and 25 mg in the morning. famotidine 40 mg tablet 40 mg PO QDAY Qty: 90 1RF cholecalciferol (vitamin D3) 125 mcg (5,000 unit) tablet 125 mcg PO QDAY Qty: 90 1RF cyanocobalamin (vitamin B-12) 1,000 mcg tablet 1,000 mcg PO QDAY Qty: 90 1RF (DME) blood-glucose meter [OneTouch Verio Flex meter] Misc See Rx Instructions .ROUTE .MEDSUPPLY Qty: 1 Rx Instructions: As directed (DME) OneTouch Verio test strips Strip See Rx Instructions .ROUTE BID Qty: 10 Rx Instructions: As directed (DME) lancets [OneTouch Delica Plus Lancet] 30 gauge misc See Rx Instructions .ROUTE BID Qty: 100 Rx Instructions: As directed Trulicity 1.5 mg/0.5 mL pen injector 1.5 mg subcut QWEEK lorazepam 1 mg capsule,extended release 24hr 1 mg PO QDAY meloxicam 15 mg tablet 15 mg PO QDAY PRN (Reason: pain) Qty: 60 0RF benzonatate 200 mg capsule 200 mg PO BID PRN (Reason: cough) 7 Days Qty: 14 0RF cyclobenzaprine 5 mg tablet 5 mg PO TID PRN (Reason: muscle spasm) 3 Days Qty: 9 0RF hydroxyzine HCl 25 mg tablet 25 mg PO BID PRN (Reason: anxiety) Qty: 90 1RF quetiapine [Seroquel] 50 mg tablet 50 mg PO QHS Qty: 60 1RF albuterol sulfate 90 mcg/actuation HFA aerosol inhaler 2 puff INHALATION Q6H PRN (Reason: Shortness Of Breath Or Wheezing) Qty: 8.5 1RF Primary Care Provider: Delma Amos Referrals: Mukesh Vaughan MD [[facility] Staff - Active Staff] - Activity Restrictions/Additional Instructions: Thank you for trusting us with your care today! Your exam was consistent with a ear canal abrasion. This may have been related to the bug or from minor ear canal trauma. Pain should improve in the next several days. You can use peroxide once daily to improve healing and prevent infection as well. Please take Tylenol (2 pills, 650 mg), ibuprofen (2 pills, 400 mg) every 6 hours as needed for pain and fever control. Please return to the emergency department if your symptoms change or worsen. Please follow with [facility] and Throat (Dr. Vaughan) for further outpatient evaluation and management. Print Language: Slovak Disposition Disposition: Home, Self Care Discharge Date/Time: 04/08/25 23:35
[2025-04-08 23:35] VITALS: BP 144/88; PULSE 92; RESP 18; TEMP 36.6; O2SAT 98
--- OUTSIDE RECORDS SUMMARY | 2025-04-08 23:37 | XMS RPT_ITS | CCD ---
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 [place] [address] Performed By: #### U ACR ####[facility] LABCLIA [id number] [place] [address] [place] Albumin/Creatinine (U) [Mass ratio] <19 Normal <30 [facility] Comment on above: Order Comment: Speci men Type: URINE SPECIMENOrdering Facility: [facility] Address: [address] [place] [address] Result Comment: Adul t Male and Female Nephrotic Criteria: <30 mg/g is considered normal to mildly increased 30-300 mg/g is considered moderately increased >300 mg/g is considered severely increased KDIGO. (2013). KDIGO 2012 Clinical Practice Guideline for the Evaluation and Management of Chronic Kidney Disease. Official Journal of the International Society of Nephrology, 3(1), 1-150. Performed By: #### U ACR ####[facility] LABCLIA [id number] [place] [address] [place] Creatinine (U) [Mass/Vol] 62.5 mg/dL Normal 20.0-300.0 [facility] Comment on above: Order Comment: Speci men Type: URINE SPECIMENOrdering Facility: [facility] Address: [address] [place] [address] Performed By: #### U ACR ####[facility] LABCLIA [id number] [place] [id number] [place] CBC W Auto Differential pane l (Bld)on 01-01-2025 Basophils (Bld) [#/Vol] 0.03 10*3/uL [facility] Basophils/100 WBC (Bld) 0.3 % C [facility] Differential cell count method Nom (Bld) Auto [facility] Eosinophils (Bld) [#/Vol] 0.1 10*3/uL [facility] Eosinophils/100 WBC (Bld) 1.2 % [facility] Erythrocyte distribution width (RBC) [Ratio] 12.3 % 11.5 - 15.0 % [facility] Hematocrit (Bld) [Volume fraction] 39.8 % 36.0 - 46.0 % [facility] Hemoglobin (Bld) [Mass/Vol] 13.9 g/dL 11.5 - 15.5 g/dL [facility] Immature granulocytes (Bld) [#/Vol] [facility] Immature granulocytes/100 WBC (Bld) 0.2 % [facility] Lymphocytes (Bld) [#/Vol] 2.97 10*3/uL [facility] Lymphocytes/100 WBC (Bld) 34.5 % [facility] MCH (RBC) [Entitic mass] 33.3 pg 26.0 - 34.0 pg [facility] MCHC (RBC) [Mass/Vol] 34.9 g/dL 30.5 - 36.0 g/dL [facility] MCV (RBC) [Entitic vol] 95.2 fL 80.0 - 100.0 fL [facility] Monocytes (Bld) [#/Vol] 0.43 10*3/uL [facility] Monocytes/100 WBC (Bld) 5 % C [facility] Neutrophils (Bld) [#/Vol] 5.07 10*3/uL [facility] Neutrophils/100 WBC (Bld) 58.8 % [facility] Nucleated RBC (Bld) [#/Vol] [facility] Nucleated RBC/100 WBC (Bld) [Ratio] 0 % /100 WBC [facility] Platelet mean volume (Bld) [Entitic vol] 9.2 fL 9.0 - 12.7 fL [facility] Platelets (Bld) [#/Vol] 280 10*3/uL [facility] RBC (Bld) [#/Vol] 4.18 10*6/uL 3.90 - 5.2 0 m/uL [facility] WBC (Bld) [#/Vol] 8.62 10*3/uL [facility] Basophils (Bld) [#/Vol] 0.03 10*3/uL Normal <0.11 [facility] Comment on above: Order Comment: Speci men Type: BLOOD SPECIMENOrdering Facility: [facility] Address: [address] [place] [address] Performed By: #### 5 7021-8 ####[facility]ITALWWINDOM AREA HOSPITALA [id number] [place] [address] [place] Basophils/100 WBC (Bld) 0.3 % Normal [place] Comment on above: Order Comment: Speci men Type: BLOOD SPECIMENOrdering Facility: [facility] Address: [address] [place] [address] Performed By: #### 5 7021-8 ####[facility] [id number] [place] [address] [place] Differential cell count method Nom (Bld) Auto Normal [facility] Comment on above: Order Comment: Speci men Type: BLOOD SPECIMENOrdering Facility: [facility] Address: [address] [place] [address] Performed By: #### 5 7021-8 ####[facility] HOSPITALLIA [id number] [place] [address] [place] Eosinophils (Bld) [#/Vol] 0.10 10*3/uL Normal <0.46 [facility] Comment on above: Order Comment: Speci men Type: BLOOD SPECIMENOrdering Facility: [facility] Address: [address] [place] [address] Performed By: #### 5 7021-8 ####[facility] FLORIDANCLIA [id number] [place] [address] [place] Eosinophils/100 WBC (Bld) 1.2 % Normal [facility] Comment on above: Order Comment: Speci men Type: BLOOD SPECIMENOrdering Facility: [facility] Address: [address] [place] [address] Performed By: #### 5 7021-8 ####[facility] YOVANY [id number] [place] [address] [place] Erythrocyte distribution width (RBC) [Ratio] 12.3 % Normal 11.5-15.0 [facility] Comment on above: Order Comment: Speci men Type: BLOOD SPECIMENOrdering Facility: [facility] Address: [address] [place] [address] Performed By: #### 5 7021-8 ####[facility] MILADYSCOLORADO CITYELÍAS [id number] [place] [address] [place] Hematocrit (Bld) [Volume fraction] 39.8 % Normal 36.0-46.0 [facility] Comment on above: Order Comment: Speci men Type: BLOOD SPECIMENOrdering Facility: [facility] Address: [address] [place] [address] Performed By: #### 5 7021-8 ####[facility] MILADYSCOLORADO CITYELÍAS [id number] [place] [address] [place] Hemoglobin (Bld) [Mass/Vol] 13.9 g/dL Normal 11.5-15.5 [facility] Comment on above: Order Comment: Speci men Type: BLOOD SPECIMENOrdering Facility: [facility] Address: [address] [place] [address] Performed By: #### 5 7021-8 ####[facility] FLORIDAALICEA [id number] [place] [address] [place] Immature granulocytes (Bld) [#/Vol] 10*3/uL Normal <0.10 [facility] Comment on above: Order Comment: Speci men Type: BLOOD SPECIMENOrdering Facility: [facility] Address: [address] [place] [address] Performed By: #### 5 7021-8 ####[facility] MILLWNCLIA [id number] [address] [place] [facility] Immature granulocytes/100 WBC (Bld) 0.2 % Normal [facility] Comment on above: Order Comment: Speci men Type: BLOOD SPECIMENOrdering Facility: [facility] Address: [address] [place] [address] Performed By: #### 5 7021-8 ####[facility] FLORIDANCLIA [id number] [place] [address] [place] Lymphocytes (Bld) [#/Vol] 2.97 10*3/uL Normal 1.00-4.00 [facility] Comment on above: Order Comment: Speci men Type: BLOOD SPECIMENOrdering Facility: [facility] Address: [address] [place] [address] Performed By: #### 5 7021-8 ####[facility] [id number] [place] [address] [place] Lymphocytes/100 WBC (Bld) 34.5 % Normal [facility] Comment on above: Order Comment: Speci men Type: BLOOD SPECIMENOrdering Facility: [facility] Address: [address] [place] [address] Performed By: #### 5 7021-8 ####[facility] HOSPITALLIA [id number] [place] [address] [place] MCH (RBC) [Entitic mass] 33.3 pg Normal 26.0-34.0 [facility] Comment on above: Order Comment: Speci men Type: BLOOD SPECIMENOrdering Facility: [facility] Address: [address] [place] [address] Performed By: #### 5 7021-8 ####[facility] [id number] [place] [address] [place] MCHC (RBC) [Mass/Vol] 34.9 g/dL Normal 30.5-36.0 [facility] Comment on above: Order Comment: Speci men Type: BLOOD SPECIMENOrdering Facility: [facility] Address: [address] [place] [address] Performed By: #### 5 7021-8 ####[facility]IDANCAMER[facility] [id number] [place] [address] [place] MCV (RBC) [Entitic vol] 95.2 fL Normal 80.0-100.0 [facility] Comment on above: Order Comment: Speci men Type: BLOOD SPECIMENOrdering Facility: [facility] Address: [address] [place] [address] Performed By: #### 5 7021-8 ####[facility] [id number] [place] [address] [place] Monocytes (Bld) [#/Vol] 0.43 10*3/uL Normal <0.87 [facility] Comment on above: Order Comment: Speci men Type: BLOOD SPECIMENOrdering Facility: [facility] Address: [address] [place] [address] Performed By: #### 5 7021-8 ####[facility] FL[facility]IDANCLI [id number] [place] [address] [place] Monocytes/100 WBC (Bld) 5.0 % Normal [facility] Comment on above: Order Comment: Speci men Type: BLOOD SPECIMENOrdering Facility: [facility] Address: [address] [place] [address] Performed By: #### 5 7021-8 ####[facility] FLORIDANCLI [id number] [place] [address] [place] Neutrophils (Bld) [#/Vol] 5.07 10*3/uL Normal 1.45-7.50 [facility] Comment on above: Order Comment: Speci men Type: BLOOD SPECIMENOrdering Facility: [facility] Address: [address] [place] [address] Performed By: #### 5 7021-8 ####[facility] MILADYSCOLORADO CITYELÍAS [id number] [place] [address] [place] Neutrophils/100 WBC (Bld) 58.8 % Normal [facility] Comment on above: Order Comment: Speci men Type: BLOOD SPECIMENOrdering Facility: [facility] Address: [address] [place] [address] Performed By: #### 5 7021-8 ####[facility] [id number] [place] [address] [place] Nucleated RBC (Bld) [#/Vol] 10*3/uL Normal <0.01 [facility] Comment on above: Order Comment: Speci men Type: BLOOD SPECIMENOrdering Facility: [facility] Address: [address] [place] [address] Performed By: #### 5 7021-8 ####[facility] [id number] [place] [address] [place] Nucleated RBC/100 WBC (Bld) [Ratio] 0.0 /100 WBC Normal [facility] Comment on above: Order Comment: Speci men Type: BLOOD SPECIMENOrdering Facility: [facility] Address: [address] [place] [address] Performed By: #### 5 7021-8 ####[facility] [id number] [place] [address] [place] Platelet mean volume (Bld) [Entitic vol] 9.2 fL Normal 9.0-12.7 [facility] Comment on above: Order Comment: Speci men Type: BLOOD SPECIMENOrdering Facility: [facility] Address: [address] [place] [address] Performed By: #### 5 7021-8 ####[facility]OSPITALWNCLIA [id number] [place] [address] [place] Platelets (Bld) [#/Vol] 280 10*3/uL Normal 150-400 [facility] Comment on above: Order Comment: Speci men Type: BLOOD SPECIMENOrdering Facility: [facility] Address: [address] [place] [address] Performed By: #### 5 7021-8 ####[facility] FLORIDANCLIA [id number] [place] [address] [place] RBC (Bld) [#/Vol] 4.18 10*6/uL Normal 3.90-5.20 [facility] Comment on above: Order Comment: Speci men Type: BLOOD SPECIMENOrdering Facility: [facility] Address: [address] [place] [address] Performed By: #### 5 7021-8 ####[facility] FL[facility]IDANCLIA [id number] [place] [address] [place] WBC (Bld) [#/Vol] 8.62 10*3/uL Normal 3.70-11.00 [facility] Comment on above: Order Comment: Speci men Type: BLOOD SPECIMENOrdering Facility: [facility] Address: [address] [place] [address] Performed By: #### 5 7021-8 ####[facility] FLORIDANCLIA [id number] [place] [address] [place] CNOVon 01-01-2025 CNOV Office Visit (ENWSTR ) SUGEY WEST ([id number]) 2000 F CHT Date Time Provider Department 01/01/25 8:45 AM PAIGE MULLER During your visit today, we recorded the following information about you: Pulse Blood pressure Weight 81/minute 123/85 137.4 kg Mónica Casiano MA 01/01/2025 9:01 AM Signed Paige Muller, [employer]EVA 01/01/2025 9:01 AM Signed OFFICE VISIT PROGRESS NOTE CC Sugey West is a 23 year old who presents today for blood sugar review, DM med dose review, adjust. HPI Diagnosed with pre diabetes age 16 Dx with DM2 2019 Last endocrine OV 01/24/2024 Some elements copied from my note 01/24/2024 which have been updated where appropriate, and all reflect current medical decision making from date of this visit. HPI 12/31/2024 Did not do labs for appt Sts is doing well Sts takes TRULICITY and then has 'low event' Sts CGM falls off her arm Not sticky' enough Weight Sts is not using METFORMIN for awhile Did not change her diet - eating 3 meals a day Did have illness several weeks ago, allergies she believes Losing voice - sore throat, coughing, did not feel well CURRENT DM MEDS TRULICITY 1.5 mg weekly injection METFORMIN 500 2 tab BID Has not been using the followin weeks HUMALOG -22-22 plus SS#2 (uses ~ 4-6 extra units) - has not needed TOUJEO units-300 inject 40 units daily - has not needed SMBG Freestyle jazmin 3 Type of Monitor: Other Frequency of Monitorin times a day Hypoglycemia: no Diet: Low carbohydrate Exercise: walking and bike riding DM REVIEW OF SYSTEMS Last Eye Exam : 06/2024 - glasses, normal Last Podiatry Exam: due Cardiorespiratory: negative, denies chest pain, pressure Claudication: no Dyslipidemia: No High Blood Pressure: yes, on medication CURRENT LABS LABS ORDERED FOR APPT, PATIENT DID NOT COMPLETE Recent Labs 02/21/21 0643 04/05/23 1530 04/05/23 1532 06/21/23 1230 02/02/24 1139 05/31/24 1151 ALT -- 30 -- -- 23 -- AST -- 21 -- -- 20 -- UCRR -- -- 128.4 -- -- 256.6 UALBR -- -- <12.0 -- -- 213.8 UALBCR -- -- <9 -- -- 83* TSH -- 0.777 -- -- -- -- TPROT 6.6 6.9 -- -- 7.3 -- ALB 3.9 4.1 -- -- 4.5 -- CA 8.9 9.6 -- -- 10.0 -- TBILI 0.2 0.2 -- -- 0.4 -- ALKPHOS 76 72 -- -- 65 -- GLUC 319* 235* -- -- 202* -- BUN 5* 14 -- -- 11 -- CREAT 0.50* 0.60 -- -- 0.64 -- NA 136 139 -- -- 140 -- K 4.3 3.8 -- -- 3.9 -- CHLOR 102 102 -- -- 105 -- CO2 18* 24 -- -- 27 -- ANION 16 13 -- -- 8* -- EGFROTH >60 129 -- -- 126 -- HBA1C -- 10.9* -- 9.1* 6.4* -- Recent Labs 04/05/23 1530 06/21/23 1230 02/02/24 1139 TG 210* -- 94 CHOL 184 -- 189 HDL 36* -- 34* VLDL 42* -- 19 LDL 106* -- 136* TCHDL 5.11* -- 5.56* LDLHDL 2.94* -- 4.00* NONHDL 148* -- 155* HBA1C 10.9* 9.1* 6.4* HBA0 266 -- 137 PAST MEDICAL HISTORY Diagnosis Date Depression Diabetes [...] she is child's guardian Vaping Use Vaping status: current everyday user Substances: Nicotine Substance Use Topics Alcohol use: No Drug use: No Current Outpatient Medications Medication Sig dulaglutide (TRULICITY) 1.5 mg/0.5 mL pen injector Inject 1.5 mg subcutaneously one time a week. Lancets Checks blood sugar 2 times daily Blood-Glucose Meter DISPENSE ONE METER KIT blood sugar diagnostic (BLOOD GLUCOSE TEST) test strip Use with blood glucose test TWO TIMES DAILY Blood-Glucose Sensor (SwipeToSpin JAZMIN 3 SENSOR PLUS) osito CHANGE SENSOR EVERY 14 days. USE FOR CONTINUOUS GLUCOSE MONITORING> MULTIPLE INSULIN INJECTIONS. E11.9 cyanocobalamin (VITAMIN B-12) 1,000 mcg tab Take 1 tablet by mouth once daily. cholecalciferol (VITAMIN D-3) 5,000 unit tab Take 1 tablet by mouth once daily. metFORMIN ER (GLUCOPHAGE XR) 500 mg 24 hr tablet Take 2 tabs with breakfast, 2 tabs with dinner galcanezumab-gnlm (EMGALITY SYRINGE) 120 mg/mL syringe Inject subcutaneously once every month. Do not shake. busPIRone (BUSPAR) 7.5 mg tablet 7.5 mg. fluticas (more content not included)... Normal [facility] metabolic 2000 panelOrdered By: Jayleen Wilks on 01-01-2025 Albumin [Mass/Vol] 4.3 g/dL 3.9 - 4.9 g/dL [facility] ALP [Catalytic activity/Vol] 67 U/L 34 - 123 U/L [facility] ALT [Catalytic activity/Vol] 59 U/L High 7 - 38 U/L [facility] Anion gap [Moles/Vol] 11 mmol/L 8 - 15 mmol/L [facility] AST [Catalytic activity/Vol] 41 U/L High 13 - 35 U/L [facility] Bilirubin [Mass/Vol] 0.3 mg/dL 0.2 - 1 .3 mg/dL [facility] Calcium [Mass/Vol] 9.6 mg/dL 8.5 - 10. 2 mg/dL [facility] Chloride [Moles/Vol] 103 mmol/L 98 - 10 7 mmol/L [facility] CO2 [Moles/Vol] 27 mmol/L 22 - 30 mmol/L [facility] Creatinine [Mass/Vol] 0.64 mg/dL 0.58 - 0.96 mg/dL [facility] GFR/1.73 sq M.predicted among non-blacks MDRD (S/P/Bld) [Vol rate/Area] 125 mL/min/{1.73_m2} - PINF [facility] Comment on above: Estimated Glomerular Filtration Rate (eGFR) is calculated using the 2020 CKD-EPI creatinine equation. This equation utilizes serum creatinine, sex, and age as parameters. The creatinine assay has traceable calibration to isotope dilution-mass spectrometry. Refer to KDIGO guidelines for clinical interpretation. In patients with unstable renal function, e.g. those with acute kidney injury, the eGFR may not accurately reflect actual GFR. Glucose [Mass/Vol] 264 mg/dL High 74 - 99 mg/dL [facility] Comment on above: The [place] Diabete s Association (ADA) provides guidance for cutoff values for fasting glucose and random glucose. The ADA defines fasting as no caloric intake for at least 8 hours. Fasting plasma glucose results between 100 to 125 mg/dL indicate increased risk for diabetes (prediabetes). Fasting plasma glucose results greater than or equal to 126 mg/dL meet the criteria for diagnosis of diabetes. In the absence of unequivocal hyperglycemia, results should be confirmed by repeat testing. In a patient with classic symptoms of hyperglycemia or hyperglycemic crisis, random plasma glucose results greater than or equal to 200 mg/dL meet the criteria for diagnosis of diabetes. Reference: Standards of Medical Care in Diabetes 2016, [place] Diabetes Association. Diabetes Care. 2016.39(Suppl 1). Interpretation and review of laboratory results Abnormal [facility] Potassium [Moles/Vol] 4.1 mmol/L 3.7 - 5.1 mmol/L [facility] Protein [Mass/Vol] 7 g/dL 6.3 - 8.0 g/dL [facility] Sodium [Moles/Vol] 141 mmol/L 136 - 144 mmol/L [facility] Urea nitrogen [Mass/Vol] 10 mg/dL 7 - 21 mg/dL [facility] Comprehensive metabolic 2000 panelon 01-01-2025 Albumin [Mass/Vol] 4.3 g/dL Normal 3.9-4.9 [facility] Comment on above: Order Comment: Speci men Type: BLOOD SPECIMENOrdering Facility: [facility] Address: [address] [place] [address] Performed By: #### 2 4323-8 ####[facility] FLORIDANCLIA [id number] [place] [address] [place] ALP [Catalytic activity/Vol] 67 U/L Normal 34-123 [facility] Comment on above: Order Comment: Speci men Type: BLOOD SPECIMENOrdering Facility: [facility] Address: [address] [place] [address] Performed By: #### 2 4323-8 ####[facility] FLORIDANCA [id number] [place] [address] [place] ALT [Catalytic activity/Vol] 59 U/L High 7-38 [facility] Comment on above: Order Comment: Speci men Type: BLOOD SPECIMENOrdering Facility: [facility] Address: [address] [place] [address] Performed By: #### 2 4323-8 ####[facility] FLORIDANCLIA [id number] [place] [address] [place] Anion gap [Moles/Vol] 11 mmol/L Normal 8-15 [facility] Comment on above: Order Comment: Speci men Type: BLOOD SPECIMENOrdering Facility: [facility] Address: [address] [place] [address] Performed By: #### 2 4323-8 ####[facility] FLORIDANCLIA [id number] [place] [address] [place] AST [Catalytic activity/Vol] 41 U/L High 13-35 [facility] Comment on above: Order Comment: Speci men Type: BLOOD SPECIMENOrdering Facility: [facility] Address: [address] [place] [address] Performed By: #### 2 4323-8 ####[facility] MILLTOWNCLIA [id number] [place] [address] [place] Bilirubin [Mass/Vol] 0.3 mg/dL Normal 0.2-1.3 [facility] Comment on above: Order Comment: Speci men Type: BLOOD SPECIMENOrdering Facility: [facility] Address: [address] [place] [address] Performed By: #### 2 4323-8 ####[facility] MILLTOWNCLIA [id number] [place] [address] [place] Calcium [Mass/Vol] 9.6 mg/dL Normal 8.5-10.2 [facility] Comment on above: Order Comment: Speci men Type: BLOOD SPECIMENOrdering Facility: [facility] Address: [address] [place] [address] Performed By: #### 2 4323-8 ####[facility] MILLTOWNCLIA [id number] [place] [address] [place] Chloride [Moles/Vol] 103 mmol/L Normal 98-107 [facility] Comment on above: Order Comment: Speci men Type: BLOOD SPECIMENOrdering Facility: [facility] Address: [address] [place] [address] Performed By: #### 2 4323-8 ####[facility] MILLTOWNCLIA [id number] [place] [address] [place] CO2 [Moles/Vol] 27 mmol/L Normal 22-30 [facility] Comment on above: Order Comment: Speci men Type: BLOOD SPECIMENOrdering Facility: [facility] Address: [address] [place] [address] Performed By: #### 2 4323-8 ####[facility] MILLTOWNCLIA [id number] [place] [address] [place] Creatinine [Mass/Vol] 0.64 mg/dL Normal 0.58-0.96 [facility] Comment on above: Order Comment: Yoanna cuba Type: BLOOD SPECIMENOrdering Facility: [facility] Address: [address] [place] [address] Performed By: #### 2 4323-8 ####[facility] [id number] [place] [address] [place] Creatinine and Glomerular filtration rate.predicted panel (S/P/Bld) 125 mL/min/1.73m??? Normal >=60 [facility] Comment on above: Order Comment: Yoanna cuba Type: BLOOD SPECIMENOrdering Facility: [facility] Address: [address] [place] [address] Result Comment: Lizzeth mated Glomerular Filtration Rate (eGFR) is calculated using the 2020 CKD-EPI creatinine equation. This equation utilizes serum creatinine, sex, and age as parameters. The creatinine assay has traceable calibration to isotope dilution-mass spectrometry. Refer to KDIGO guidelines for clinical interpretation. In patients with unstable renal function, e.g. those with acute kidney injury, the eGFR may not accurately reflect actual GFR. Performed By: #### 2 4323-8 ####[facility] [id number] [place] [address] [place] Glucose [Mass/Vol] 264 mg/dL High 74-99 [facility] Comment on above: Order Comment: Yoanna cuba Type: BLOOD SPECIMENOrdering Facility: [facility] Address: [address] [place] [address] Result Comment: The [place] Diabetes Association (ADA) provides guidance for cutoff values for fasting glucose and random glucose. The ADA defines fasting as no caloric intake for at least 8 hours. Fasting plasma glucose results between 100 to 125 mg/dL indicate increased risk for diabetes (prediabetes). Fasting plasma glucose results greater than or equal to 126 mg/dL meet the criteria for diagnosis of diabetes. In the absence of unequivocal hyperglycemia, results should be confirmed by repeat testing. In a patient with classic symptoms of hyperglycemia or hyperglycemic crisis, random plasma glucose results greater than or equal to 200 mg/dL meet the criteria for diagnosis of diabetes. Reference: Standards of Medical Care in Diabetes 2016, [place] Diabetes Association. Diabetes Care. 2016.39(Suppl 1). Performed By: #### 2 4323-8 ####[facility] [id number] [place] [address] [place] Potassium [Moles/Vol] 4.1 mmol/L Normal 3.7-5.1 [facility] Comment on above: Order Comment: Speci men Type: BLOOD SPECIMENOrdering Facility: [facility] Address: [address] [place] [address] Performed By: #### 2 4323-8 ####[facility] [id number] [place] [address] [place] Protein [Mass/Vol] 7.0 g/dL Normal 6.3-8.0 [facility] Comment on above: Order Comment: Speci men Type: BLOOD SPECIMENOrdering Facility: [facility] Address: [address] [place], [place] [address] Performed By: #### 2 4323-8 ####[facility] [id number] [place] [address] [place] Sodium [Moles/Vol] 141 mmol/L Normal 136-144 [facility] Comment on above: Order Comment: Speci men Type: BLOOD SPECIMENOrdering Facility: [facility] Address: [address] [place] [address] Performed By: #### 2 4323-8 ####[facility] [id number] [place] [address] [place] Urea nitrogen [Mass/Vol] 10 mg/dL Normal 7-21 [facility] Comment on above: Order Comment: Speci men Type: BLOOD SPECIMENOrdering Facility: [facility] Address: [address] [place] [address] Performed By: #### 2 4323-8 ####[facility] [id number] [place] [address] [facility] [place] HbA1c (Bld)on 01-01-2025 Average glucose Estimated from glycated hemoglobin (Bld) [Mass/Vol] 171 mg/dL Normal [facility] Comment on above: Order Comment: Yoanna cuba Type: BLOOD SPECIMENOrdering Facility: [facility] Address: [address] [place] [address] Result Comment: eAG: (Estimated average glucose) is a calculated value from HgbA1c and is hr representative of the average blood glucose level in the last 2-3 month period. Performed By: #### 5 5454-3 ####[facility] LABIA [id number] [address] STATES OF [facility] HbA1c (Bld) [Mass fraction] 7.6 % High 4.3-5.6 [facility] Comment on above: Order Comment: Yoanna cuba Type: BLOOD SPECIMENOrdering Facility: [facility] Address: [address] [place] [address] Result Comment: Amer ican Diabetes Association guidelines indicate that patients with HgbA1c in the range 5.7-6.4% are at increased risk for development of diabetes, and intervention by lifestyle modification may be beneficial. HgbA1c greater or equal to 6.5% is considered diagnostic of diabetes. Performed By: #### 5 5454-3 ####[facility] LABIA [id number] [place] [id number] [place] LIPID PANEL, NONFASTINGon Cholesterol [Mass/Vol] 178 mg/dL Normal <200 [facility] Comment on above: Order Comment: Yoanna cuba Type: BLOOD SPECIMENOrdering Facility: [facility] Address: [address] [place] [address] Result Comment: <200 mg/dL, Desirable 200-239 mg/dL, Borderline high >239 mg/dL, High Performed By: #### L IPNF, 3023-7, 3015-3 ####[facility] LABCLIA [id number] [address] [place] HDL CHOLESTEROL, NF 32 mg/dL Low >39 [facility] Comment on above: Order Comment: Speci men Type: BLOOD SPECIMENOrdering Facility: [facility] Address: [address] [place] [address] Result Comment: 40-5 9 mg/dL, Acceptable >59 mg/dL, High: Negative risk factor for coronary heart disease <40 mg/dL, Low: Positive risk factor for coronary heart disease Performed By: #### L IPNF, 3023-, 3015-11 ####[facility] LABCLIA [id number] [address] LDL CHOLESTEROL CALCULATED, NF 120 mg/dL High <100 [facility] Comment on above: Order Comment: Yoanna [facility] Type: BLOOD SPECIMENOrdering Facility: [facility] Address: [address] [place] [address] Result Comment: <100 mg/dL, Optimal 100-129 mg/dL, Near optimal/above optimal 130-159 mg/dL, Borderline high 160-189 mg/dL, High >189 mg/dL, Very high Secondary prevention optimal LDL Cholesterol levels are recommended to be <70 mg/dL LDL cholesterol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 Serum or plasma calcium jalyn urement (mass/volume)Ordered By: Fortunato Yap on 11-22-2023 Calcium [Mass/Vol] 8.6 mg/dL 8.5-10.1 [facility] Serum or plasma creatinine m easurement (mass/volume)Ordered By: Fortunato Yap on 11-22-2023 Creatinine [Mass/Vol] 0.72 mg/dL 0.55-1.02 [facility] Comment on above: The validity of the calculated GFR & GFRAA in patients over 70 years has not been determined. Clinical correlation is essential. Serum or plasma urea nitroge n measurement (mass/volume)Ordered By: Fortunato Yap on 11-22-2023 Urea nitrogen [Mass/Vol] 8 mg/dL 7-18 [facility] Thin prep Papanicolaou smear with manual screeningOrdered By: Indio Olivares on 11-22-2023 Thin prep Papanicolaou smear with manual screening 165 mg/dL 74-106 [facility] Comment on above: MANAGEMENT OF PATIEN T CARE PER NURSING PROTOCOL Thin prep Papanicolaou smear with manual screeningOrdered By: Fortunato Yap on 11-22-2023 Thin prep Papanicolaou smear with manual screening 3.6 g/dL 3.2-5.0 [facility] Thin prep Papanicolaou smear with manual screening 15 U/L 15-37 [facility] Thin prep Papanicolaou smear with manual screening 7 5-15 [facility] CVFLURVon 10-25-2023 FLU A PCR Negative Normal Negative [facility] ([place]) Comment on above: Performed By: #### C VFLURV, STREPA ####[address] [place], [place] [address] FLU B PCR Negative Normal Negative [facility] ([place] Comment on above: Performed By: #### C VFLURV, STREPA ####[address] [place], [place] [address] RSV PCR Negative Normal Negative [facility] ([place] Comment on above: Performed By: #### C VFLURV STREPA ####[address] [place] [address] SARS-CoV-2 (COVID-19) RNA GREYSON+probe Ql (Unsp spec) Negative Normal Negative [facility] ([place]) Comment on above: Result Comment: Resu lts from the Xpert Xpress CoV-2/Flu/RSV plus test should be correlated with the clinical history, epidemiological data, and other data available to the clinical evaluating the patient. Performance of the Xpert Xpress CoV-2/Flu/RSV plus test has only been established in nasopharyngeal swab specimen. Erroneous test results might occur from improper specimen collection, failure to follow the recommended sample collection, handling and storage procedures, technical error, or sample mix-up. False negative results may occur if a virus is present at a level below the analytical limit of detection. Viral nucleic acid may persist in vivo, independent of virus viability. Detection of analyte target(s) does not imply that the corresponding virus(es) are infectious or are the causative agents for clinical symptoms. Recent patient exposure to FluMist or other live attenuated influenza vaccines may cause inaccurate positive results. Performed By: #### C VFLURV STREPA ####[address] [address] STREPAon 10-25-2023 Group A Strep PCR Not detected Normal Not Detected [facility] ([place]) Comment on above: Performed By: #### C VFNICOL STREPA ####[address] [place] [address] Group A Strep PCR Int Normal [facility] ([place]) Comment on above: Result Comment: Nega tive Results: Negative for Streptococcus pyogenes by PCR. A negative test result does not exclude the possibility of infection because the test result may be affected by improper specimen collection, technical error, sample mix-up, or because the number of organisms in the sample is below the limit of detection of the test. The Xpert Xpress Strep A test should not be used as the sole basis for treatment or other patient management decisions. The Xpert Xpress Strep A test does not differentiate asymptomatic carriers of Group A streptococci from those exhibiting streptococcal infection. The results from the Xpert Xpress Strep A test should be interpreted in conjunction with other laboratory and clinical data available to the clinician. The Xpert Xpress Strep A Assay is a real-time polymerase chain reaction (PCR) based qualitative in vitro diagnostic test for the direct detection of Streptococcus pyogenes (Group A Beta hemolytic Streptococcus) in throat swab specimens from patients with signs and symptoms of pharyngitis. The assay is not intended to monitor treatment for Group A Streptococcus infections. See Interp Performed By: #### C VFLUCELESTINA STREPA ####[address] [place], [place] [address] LABORATORYOrdered By: Edith Rodriguez on 10-24-2023 FLUAV RNA GREYSON+probe Ql (Resp) Negative (10/24/23 10:57 PM) Normal Negative AO Auto Urine SS FLUBV RNA GREYSON+probe Ql (Resp) Negative (10/24/23 10:57 PM) Normal Negative AO Auto Urine SS Group A Strep PCR Int Negative Results: Negative for Streptococcus pyogenes by PCR. A negative test result does not exclude the possibility of infection because the test result may be affected by improper specimen collection, technical error, sample mix-up, or because the number of organisms in the sample is below the limit of detection of the test.The Xpert Xpress Strep A test should not be used as the sole basis for treatment or other patient management decisions. The Xpert Xpress Strep A test does not differentiate asymptomatic carriers of Group A streptococci from those exhibiting streptococcal infection. The results from the Xpert Xpress Strep A test should be interpreted in conjunction with other laboratory and clinical data available to the clinician.The Xpert Xpress Strep A Assay is a real-time polymerase chain reaction (PCR) based qualitative in vitro diagnostic test for the direct detection of Streptococcus pyogenes (Group A Beta hemolytic Streptococcus) in throat swab specimens from patients with signs and symptoms of pharyngitis.The assay is not intended to monitor treatment for Group A Streptococcus infections. Normal AO Auto Urine SS RSV RNA GREYSON+probe Ql (Resp) Negative (10/24/23 10:57 PM) Normal Negative AO Auto Urine SS S. pyogenes DNA GREYSON+probe Ql (Throat) Not Detected (10/24/23 10:57 PM) Normal Not Detected AO Auto Urine SS SARS-CoV-2 (COVID-19) RNA GREYSON+probe Ql (Resp) Negative 1 (10/24/23 10:57 PM) Normal Negative AO Auto Urine SS Comment on above: Interpretive Data: R esults from the Xpert Xpress CoV-2/Flu/RSV plus test should be correlated with the clinical history, epidemiological data, and other data available to the clinical evaluating the patient. Performance of the Xpert Xpress CoV-2/Flu/RSV plus test has only been established in nasopharyngeal swab specimen. Erroneous test results might occur from improper specimen collection, failure to follow the recommended sample collection, handling and storage procedures, technical error, or sample mix-up. False negative results may occur if a virus is present at a level below the analytical limit of detection. Viral nucleic acid may persist in vivo, independent of virus viability. Detection of analyte target(s) does not imply that the corresponding virus(es) are infectious or are the causative agents for clinical symptoms. Recent patient exposure to FluMist or other live attenuated influenza vaccines may cause inaccurate positive results. Laboratory - Hematology and Cell countson 10-12-2023 HbA1c (Bld) [Mass fraction] 5.9 % 4.2-6.3 [facility] Serum or plasma thyroid stim ulating hormone (TSH) measurement (units/volume)Ordered By: [facility] Eduardbonnycy[facility] on 10-12-2023 TSH Qn 0.87 uIU/mL 0.358-3.74 [facility] Thin prep Papanicolaou smear with manual screeningOrdered By: [facility] on 10-12-2023 Thin prep Papanicolaou smear with manual screening 0.88 ng/dL 0.76-1.46 [facility] Absolute lymphocyte countOrd ered By: [facility] on 08-03-2023 Lymphocytes Auto (Unsp spec) [#/Vol] 2.77 10*3/uL 0.83-4.51 [facility] Basophil percentageOrdered B y: [facility] Eduardcyn on 08-03-2023 Basophils/100 WBC (Bld) 0.2 % 0-1 [facility] Bilirubin [Mass/Vol] 0.20 mg/dL 0.20-1.00 [facility] Comment on above: For patients on eltr ombopag therapy, use of Dimension Dinosaur TBIL is not recommended. Chloride [Moles/Vol] 106 mmol/L 98-107 [facility] Eosinophils/100 WBC (Bld) 1.1 % 0-5 [facility] Glucose [Mass/Vol] 90 mg/dL 74-106 [facility] Neutrophils (Bld) [#/Vol] 5.1 10*3/uL 2.0-7.7 [facility] Neutrophils/100 WBC (Bld) 61.4 % 47-70 [facility] Potassium [Moles/Vol] 4.1 mmol/L 3.5-5.1 [facility] Protein [Mass/Vol] 7.6 g/dL 6.4-8.2 [facility] Sodium [Moles/Vol] 140 mmol/L 136-145 [facility] WBC (Bld) [#/Vol] 8.4 10*3/uL 4.4-11.0 [facility] Blood erythrocytes count (nu mber/volume)Ordered By: Eliazar Amos on 08-03-2023 RBC (Bld) [#/Vol] 4.09 10*6/uL 4.2-5.4 [facility] Blood hemoglobin measurement (mass/volume)Ordered By: Eliazar Amos on 08-03-2023 Hemoglobin (Bld) [Mass/Vol] 14.0 g/dL 12.0-15.0 [facility] Blood lymphocytes/100 leukoc ytesOrdered By: [facility] on 08-03-2023 Lymphocytes/100 WBC (Bld) 33.2 % 19-41 [facility] Blood monocytes/100 leukocyt esOrdered By: [facility] Am[facility] on 08-03-2023 Monocytes/100 WBC (Bld) 4.0 % 0-10 [facility] Blood platelet mean volumeOr dered By: erniecarbondalesharon Amos on 08-03-2023 Platelet mean volume (Bld) [Entitic vol] 8.9 fL 6.2-12.0 [facility] Determination of erythrocyte mean corpuscular volume (MCV)Ordered By: Eliazar Amos on 08-03-2023 MCV (RBC) [Entitic vol] 101.0 fL 81-99 [facility] Hematocrit Auto (Bld) [Volum e fraction]Ordered By: erniecarbondalesharon Chapacyn on 08-03-2023 Hematocrit (Bld) [Volume fraction] 41.3 % 37-47 [facility] Laboratory - Chemistry and C hemistry - challengeOrdered By: erniecarbondalesharon Amos on 08-03-2023 ALP [Catalytic activity/Vol] 58 U/L 45-117 [facility] ALT [Catalytic activity/Vol] 39 U/L 13-56 [facility] CO2 [Moles/Vol] 30.0 mmol/L 21.0-32.0 [facility] Globulin (S) [Mass/Vol] 3.9 g/dL 2.2-4.2 [facility] Urea nitrogen/Creatinine [Mass ratio] 19.5 mg/mg 10-20 [facility] Laboratory - Hematology and Cell countsOrdered By: Eliazar Amos on 08-03-2023 Erythrocyte distribution width (RBC) [Entitic vol] 43.4 fL 35.1-43.9 [facility] Erythrocyte distribution width (RBC) [Ratio] 11.9 % 11.6-14.6 [facility] Immature granulocytes/100 WBC (Bld) 0.100 % 0.0-0.9 [facility] Comment on above: IG% - Immature Granu locytes (promyelocytes, myelocytes and metamyelocytes) > 1% indicates that a LEFT SHIFT is Present. MCH (RBC) [Entitic mass] 34.2 pg 27.0-32.0 [facility] Nucleated RBC/100 WBC (Bld) [Ratio] 0 % 0-5 [facility] Laboratory - Hematology and Cell countson 08-03-2023 HbA1c (Bld) [Mass fraction] 6.8 % 4.2-6.3 [facility] MCHC Auto (RBC) [Mass/Vol]Or dered By: Eliazar Amos on 08-03-2023 MCHC (RBC) [Mass/Vol] 33.9 g/dL 32-36 [facility] No Panel InformationOrdered By: Eliazar Amos on 08-03-2023 Estimated GFR (MDRD) Amer 128 mL/min >60 [facility] Comment on above: GFR Calc Estimated GFR (MDRD) Non-Af Amer 105 mL/min >60 [facility] Comment on above: Non- GFR Calc Platelets bldOrdered By: Minh Amos on 08-03-2023 Platelets (Bld) [#/Vol] 294 10*3/uL 150-450 [facility] Serum or plasma albumin jalyn urement (mass/volume)Ordered By: Eliazar Amos on 08-03-2023 Albumin [Mass/Vol] 3.7 g/dL 3.2-5.0 [facility] Serum or plasma albumin/glob ulin mass ratioOrdered By: Eliazar Amos on 08-03-2023 Albumin/Globulin [Mass ratio] 0.9 {ratio} 0.9-2.4 [facility] Serum or plasma calcium jalyn urement (mass/volume)Ordered By: Eliazar Amos on 08-03-2023 Calcium [Mass/Vol] 9.4 mg/dL 8.5-10.1 [facility] Serum or plasma creatinine m easurement (mass/volume)Ordered By: Eliazar Amos on 08-03-2023 Creatinine [Mass/Vol] 0.72 mg/dL 0.55-1.02 [facility] Comment on above: The validity of the calculated GFR & GFRAA in patients over 70 years has not been determined. Clinical correlation is essential. Serum or plasma urea nitroge n measurement (mass/volume)Ordered By: Eliazar Amos on 08-03-2023 Urea nitrogen [Mass/Vol] 14 mg/dL - [facility] Thin prep Papanicolaou smear with manual screeningOrdered By: Eliazar Amos on 08-03-2023 Thin prep Papanicolaou smear with manual screening 18 U/L 15- [facility] Thin prep Papanicolaou smear with manual screening 4 5-15 [facility] HEMOGLOBIN A1C (POC)on 06-21 HbA1c (Bld) [Mass fraction] 9.1 % Abnormal 4.2 - 5.6 % [facility] US THYROID/PARATHYROIDon [facility] Absolute lymphocyte countOrd ered By: Eliazar Amos on 05-11-2023 Lymphocytes Auto (Unsp spec) [#/Vol] 2.33 10*3/uL 0.83-4.51 [facility] Basophil percentageOrdered B y: Eliazar Amos on 05-11-2023 Basophils/100 WBC (Bld) 0.4 % 0-1 [facility] Bilirubin [Mass/Vol] 0.40 mg/dL 0.20-1.00 [facility] Comment on above: For patients on eltr ombopag therapy, use of Dimension Dinosaur TBIL is not recommended. Chloride [Moles/Vol] 107 mmol/L 98-107 [facility] Eosinophils/100 WBC (Bld) 1.9 % 0-5 [facility] Glucose [Mass/Vol] 286 mg/dL 74-106 [facility] Comment on above: Glucose result great er than or equal to 200 mg/dLsuggests DIABETES MELLITUS per A.D.A. criteria. Neutrophils (Bld) [#/Vol] 6.9 10*3/uL 2.0-7.7 [facility] Neutrophils/100 WBC (Bld) 69.7 % 47-70 [facility] Potassium [Moles/Vol] 3.7 mmol/L 3.5-5.1 [facility] Protein [Mass/Vol] 7.2 g/dL 6.4-8.2 [facility] Sodium [Moles/Vol] 139 mmol/L 136-145 [facility] WBC (Bld) [#/Vol] 9.8 10*3/uL 4.4-11.0 [facility] Blood erythrocytes count (nu mber/volume)Ordered By: Eliazar Amos on 05-11-2023 RBC (Bld) [#/Vol] 4.21 10*6/uL 4.2-5.4 [facility] Blood hemoglobin measurement (mass/volume)Ordered By: Eliazar Amos on 05-11-2023 Hemoglobin (Bld) [Mass/Vol] 14.1 g/dL 12.0-15.0 [facility] Blood lymphocytes/100 leukoc ytesOrdered By: Eliazar Amos on 05-11-2023 Lymphocytes/100 WBC (Bld) 23.7 % 19-41 [facility] Blood monocytes/100 leukocyt esOrdered By: Eliazar Amos on 05-11-2023 Monocytes/100 WBC (Bld) 4.1 % 0-10 [facility] Blood platelet mean volumeOr dered By: Eliazar Amos on 05-11-2023 Platelet mean volume (Bld) [Entitic vol] 9.3 fL 6.2-12.0 [facility] Determination of erythrocyte mean corpuscular volume (MCV)Ordered By: Eliazar Amos on 05-11-2023 MCV (RBC) [Entitic vol] 98.8 fL 81-99 [facility] Hematocrit Auto (Bld) [Volum e fraction]Ordered By: Eliazar Amos on 05-11-2023 Hematocrit (Bld) [Volume fraction] 41.6 % 37-47 [facility] Laboratory - Chemistry and C hemistry - challengeOrdered By: Eliazar Amos on 05-11-2023 ALP [Catalytic activity/Vol] 66 U/L 45-117 [facility] ALT [Catalytic activity/Vol] 32 U/L 13-56 [facility] CO2 [Moles/Vol] 26.0 mmol/L 21.0-32.0 [facility] Globulin (S) [Mass/Vol] 3.8 g/dL 2.2-4.2 [facility] Urea nitrogen/Creatinine [Mass ratio] 14.8 mg/mg 10-20 [facility] Laboratory - Hematology and Cell countsOrdered By: Eliazar Amos on 05-11-2023 Erythrocyte distribution width (RBC) [Entitic vol] 42.1 fL 35.1-43.9 [facility] Erythrocyte distribution width (RBC) [Ratio] 11.7 % 11.6-14.6 [facility] Immature granulocytes/100 WBC (Bld) 0.200 % 0.0-0.9 [facility] Comment on above: IG% - Immature Granu locytes (promyelocytes, myelocytes and metamyelocytes) > 1% indicates that a LEFT SHIFT is Present. MCH (RBC) [Entitic mass] 33.5 pg 27.0-32.0 [facility] Nucleated RBC/100 WBC (Bld) [Ratio] 0 % 0-5 [facility] MCHC Auto (RBC) [Mass/Vol]Or dered By: Eliazar Amos on 05-11-2023 MCHC (RBC) [Mass/Vol] 33.9 g/dL 32-36 [facility] No Panel InformationOrdered By: Eliazar Amos on 05-11-2023 Estimated GFR (MDRD) Amer 111 mL/min >60 [facility] Comment on above: GFR Calc Estimated GFR (MDRD) Non-Af Amer 92 mL/min >60 [facility] Comment on above: Non- GFR Calc Platelets bldOrdered By: Minh Amos on 05-11-2023 Platelets (Bld) [#/Vol] 290 10*3/uL 150-450 [facility] Serum or plasma albumin jalyn urement (mass/volume)Ordered By: Eliazar Amos on 05-11-2023 Albumin [Mass/Vol] 3.4 g/dL 3.2-5.0 [facility] Serum or plasma albumin/glob ulin mass ratioOrdered By: Eliazar Amos on 05-11-2023 Albumin/Globulin [Mass ratio] 0.9 {ratio} 0.9-2.4 [facility] Serum or plasma calcium jalyn urement (mass/volume)Ordered By: Calvincarbondalesharon Amos on 05-11-2023 Calcium [Mass/Vol] 9.1 mg/dL 8.5-10.1 [facility] Serum or plasma creatinine m easurement (mass/volume)Ordered By: Eliazar Amos on 05-11-2023 Creatinine [Mass/Vol] 0.81 mg/dL 0.55-1.02 [facility] Comment on above: The validity of the calculated GFR & GFRAA in patients over 70 years has not been determined. Clinical correlation is essential. Serum or plasma urea nitroge n measurement (mass/volume)Ordered By: Eliazar Amos on 05-11-2023 Urea nitrogen [Mass/Vol] 12 mg/dL 7-18 [facility] Thin prep Papanicolaou smear with manual screeningOrdered By: Calvincarbondalesharon Amos on 05-11-2023 Thin prep Papanicolaou smear with manual screening 16 U/L 15-37 [facility] Thin prep Papanicolaou smear with manual screening 6 5-15 [facility] Laboratory - Hematology and Cell countson 05-03-2023 HbA1c (Bld) [Mass fraction] 11.9 % 4.2-6.3 [facility] ALBUMIN/CREAT RATIO RND URon 04-06-2023 Albumin DL <= 20 mg/L (U) [Mass/Vol] [facility] Albumin/Creatinine (U) [Mass ratio] <30 mg/g [facility] Creatinine (U) [Mass/Vol] 128.4 mg/dL 20.0 - 300.0 mg/dL [facility] LIPID PANEL, NONFASTINGon Cholesterol [Mass/Vol] 184 mg/dL <200 mg/dL Cl [facility] HDL Cholesterol, Nonfasting 36 mg/dL Low >39 mg/dL [facility] LDL Cholesterol, Nonfasting 106 mg/dL High <100 mg/dL [facility] LDL/HDL Ratio, Nonfasting 2.94 mg/dL High <2.54 mg/dL [facility] Non HDL Cholesterol, Nonfasting 148 mg/dL High <130 mg/dL [facility] Total Chol/HDL Ratio, Nonfasting 5.11 mg/dL High <5.10 mg/dL [facility] Triglycerides, Nonfasting 210 mg/dL High <150 mg/dL [facility] VLDL Cholesterol, Nonfasting 42 mg/dL High <30 mg/dL [facility] T4 FREE/FREE THYROXon 2022 Free T4 [Mass/Vol] 1.0 ng/dL 0.9 - 1.7 ng/dL [facility] TSH BLDon 04-06-2023 TSH Qn 0.777 m[IU]/L 0.270 - 4.200 mIU/L [facility] Comprehensive metabolic 2000 panelon 04-05-2023 Albumin [Mass/Vol] 4.1 g/dL 3.9 - 4.9 g/dL [facility] ALP [Catalytic activity/Vol] 72 U/L 34 - 123 U/L [facility] ALT [Catalytic activity/Vol] 30 U/L 7 - 38 U/L [facility] Anion gap [Moles/Vol] 13 mmol/L 9 - 18 mmol/L [facility] AST [Catalytic activity/Vol] 21 U/L 13 - 35 U/L [facility] Bilirubin [Mass/Vol] 0.2 mg/dL 0.2 - 1 .3 mg/dL [facility] Calcium [Mass/Vol] 9.6 mg/dL 8.5 - 10. 2 mg/dL [facility] Chloride [Moles/Vol] 102 mmol/L 97 - 10 5 mmol/L [facility] CO2 [Moles/Vol] 24 mmol/L 22 - 30 mmol/L [facility] Creatinine [Mass/Vol] 0.60 mg/dL 0.58 - 0.96 mg/dL [facility] Estimated Glomerular Filtration Rate 129 mL/min/1.73m >=60 mL/min/1.73 m [facility] Glucose [Mass/Vol] 235 mg/dL High 74 - 99 mg/dL [facility] Potassium [Moles/Vol] 3.8 mmol/L 3.7 - 5.1 mmol/L [facility] Protein [Mass/Vol] 6.9 g/dL 6.3 - 8.0 g/dL [facility] Sodium [Moles/Vol] 139 mmol/L 136 - 144 mmol/L [facility] Urea nitrogen [Mass/Vol] 14 mg/dL 7 - 21 mg/dL [facility] HbA1c (Bld)on 04-05-2023 Average glucose Estimated from glycated hemoglobin (Bld) [Mass/Vol] 266 mg/dL [facility] HbA1c (Bld) [Mass fraction] 10.9 % High 4.3 - 5.6 % [facility] THYROID PEROXIDASE ANTIBODY BLOODon 04-05-2023 TPO Ab Qn 5.2 [IU]/mL <5.6 IU/mL [facility] US PELVIS NON-OB W/TRANSVAGI NALon 03-22-2023 US PELVIS NON-OB W/TRANSVAGINAL ORIGINAL EXAMINATION: TRANSVAGINAL PELVIC ULTRASOUND03/17/2023 2:57 pm Ultrasound Pelvis: Transabdominal and transvaginal study COMPARISON: 01/23/2018 HISTORY: ORDERING SYSTEM PROVIDED HISTORY: Reason for Exam: oligomenorrhea w prolonged menses. eval endom, FINDINGS: The uterus is retroflexed 7.8 x 5.5 x 4.5 cms. The myometrium is homogeneous. No myometrial mass is seen. The endometrial double wall thickness is 6.6 mm. Right ovary: 4.5 x 2.6 x 2.0 cm.. Volume 11.9 cc Left ovary: 2.7 x 2.2 x 2.5 cm. Volume 7.6 cc. There is no suspicious ovarian lesion. There are a few subcentimeter follicles in the ovaries more on the right side. No dominant ovarian cyst.. No pelvic or adnexal masses are seen. There is a small amount of free fluid in the pelvis which is probably a physiological amount from a recent cyst rupture or leakage. IMPRESSION: Small amount of probably physiologic fluid in the pelvis. Otherwise, normal pelvic echogram. Interpreted by: Claude Wilkerson MD Preliminary Report By: Claude Wilkersno MD Electronically signed By Claude Wilkerson MD Dictated Date: 03/22/2023 12:36:50 PM Prelim Date: 03/22/2023 12:39:27 PM Sign Date: 03/22/2023 12:39:27 PM Ordering Provider: MARINE Alvarado [facility] ([place]) [employer] Cytology Reporton 2022 [employer] Cytology Report . Pathology Reports Accession: Collected Date/Time: Received Date/Time: Pathologist: [id number] 03/13/2023 11:09 EDT 03/13/2023 18:00 EDT TORREY WADE MD [employer] Cytology Report SPECIMEN: Specimen Description: Liquid Prep w/ HPV Specimen: Cervical/Endocervical Screening or Diagnostic: Screening RELEVANT HISTORY: LMP: 02/23/23 SPECIMEN ADEQUACY: SATISFACTORY FOR EVALUATION Endocervical/Transforma tional zone component present INTERPRETATION/RESULTS: EPITHELIAL CELL ABNORMALITIES, SQUAMOUS Atypical squamous cells of undetermined significance (ASC-US) HIGH RISK HPV TESTING: Event Code Result HPV Interp See Interp HPVN HPV Interp Text: High Risk HPV Typing: NEGATIVE HPV types 16, 18, 31, 33, 35, 39, 45, 51, 52, 56, 58, 59, 66 and 68 DNA were undetectable or below the pre-set threshold. The christopher High-Risk HPV DNA Test is not intended for use as a screening device for Pap normal women under age 30 and is not intended to substitute for regular Pap screening. The christopher High-Risk HPV DNA Test is designed to augment existing methods for the detection of cervical disease and should be used in conjunction with clinical information derived from other diagnostic and screening tests, physical examinations and full medical history in accordance with appropriate patient management procedures. NOTE: A negative result does not preclude the presence of HPV infection because results depend on adequate specimen collection, absence of inhibitors and sufficient DNA to be detected. As of: 03/21/23 11:32 EDT COMMENT: This Pap Test was successfully processed and evaluated with the assistance of the [employer] ThinPrep Test Imaging System. Pathology Reports Accession: Collected Date/Time: Received Date/Time: Pathologist: [id number] 03/13/2023 11:09 EDT 03/13/2023 18:00 EDT TORREY WADE MD Electronically Signed by Pathology report verified by [facility] Screened by: ADIN ENCINAS Electronically signed by TORREY WADE Sign-Out Date: 03/21/2023 13:21 Performing Lab: [facility], [address] [place] [id number] [facility] Pathology Dept Disclaimer The Pap test is a screening test for cervical cancer. As evidenced by published data, it is subject to both inherent false negative and false positive results. Your patient's results should be interpreted in context with pertinent clinical history including gynecological examination. Normal [facility] ([place]) HPVon 03-20-2023 HPV Interp Normal See Interp HPVN [facility]) Comment on above: Order Comment: Order placed by AP_HPV_ORDER rule from [id number] Result Comment: High Risk HPV Typing: NEGATIVE HPV types 16, 18, 31, 33, 35, 39, 45, 51, 52, 56, 58, 59, 66 and 68 DNA were undetectable or below the pre-set threshold. The christopher High-Risk HPV DNA Test is not intended for use as a screening device for Pap normal women under age 30 and is not intended to substitute for regular Pap screening. The christopher High-Risk HPV DNA Test is designed to augment existing methods for the detection of cervical disease and should be used in conjunction with clinical information derived from other diagnostic and screening tests, physical examinations and full medical history in accordance with appropriate patient management procedures. NOTE: A negative result does not preclude the presence of HPV infection because results depend on adequate specimen collection, absence of inhibitors and sufficient DNA to be detected. See [facility] HPVN Performed By: #### H PV ####[place] [address] HPV Source Cervix Normal [facility] ([place]) Comment on above: Order Comment: Order placed by AP_HPV_ORDER rule from [id number] Performed By: #### H PV ####[place] [id number] Basophil percentageOrdered B y: Saulo Lacy on 03-16-2023 Bilirubin [Mass/Vol] 0.60 mg/dL 0.20-1.00 [facility] Comment on above: For patients on eltr ombopag therapy, use of Dimension Dinosaur TBIL is not recommended. Chloride [Moles/Vol] 104 mmol/L 98-107 [facility] Glucose [Mass/Vol] 291 mg/dL 74-106 [facility] Comment on above: Glucose result great er than or equal to 200 mg/dLsuggests DIABETES MELLITUS per A.D.A. criteria. Potassium [Moles/Vol] 4.0 mmol/L 3.5-5.1 [facility] Protein [Mass/Vol] 7.6 g/dL 6.4-8.2 [facility] Sodium [Moles/Vol] 137 mmol/L 136-145 [facility] WBC (Bld) [#/Vol] 9.5 10*3/uL 4.4-11.0 [facility] Creatinine [Mass/Vol] 0.9 mg/dL 0.55-1.02 [facility] Blood erythrocytes count (nu mber/volume)Ordered By: Saulo Lacy on 03-16-2023 RBC (Bld) [#/Vol] 4.36 10*6/uL 4.2-5.4 [facility] Blood hemoglobin measurement (mass/volume)Ordered By: Saulo Lacy on 03-16-2023 Hemoglobin (Bld) [Mass/Vol] 15.2 g/dL 12.0-15.0 [facility] Blood platelet mean volumeOr dered By: Saulo Lacy on 03-16-2023 Platelet mean volume (Bld) [Entitic vol] 9.4 fL 6.2-12.0 [facility] Determination of erythrocyte mean corpuscular volume (MCV)Ordered By: Saulo Lacy on 03-16-2023 MCV (RBC) [Entitic vol] 98.2 fL 81-99 [facility] Hematocrit Auto (Bld) [Volum e fraction]Ordered By: Saulo Lacy on 03-16-2023 Hematocrit (Bld) [Volume fraction] 42.8 % 37-47 [facility] Laboratory - Chemistry and C hemistry - challengeOrdered By: Saulo Lacy on 03-16-2023 ALP [Catalytic activity/Vol] 74 U/L 45-117 [facility] ALT [Catalytic activity/Vol] 46 U/L 13-56 [facility] CO2 [Moles/Vol] 27.0 mmol/L 21.0-32.0 [facility] Cobalamin (Vitamin B12) [Mass/Vol] 380 pg/mL 211-911 [facility] Free T4 [Mass/Vol] 0.99 ng/dL 0.76-1.46 [facility] Globulin (S) [Mass/Vol] 3.8 g/dL 2.2-4.2 [facility] Urea nitrogen/Creatinine [Mass ratio] 13.5 mg/mg 10-20 [facility] Laboratory - Hematology and Cell countsOrdered By: Saulo Lacy on 03-16-2023 Erythrocyte distribution width (RBC) [Entitic vol] 43.1 fL 35.1-43.9 [facility] Erythrocyte distribution width (RBC) [Ratio] 11.9 % 11.6-14.6 [facility] MCH (RBC) [Entitic mass] 34.9 pg 27.0-32.0 [facility] MCHC Auto (RBC) [Mass/Vol]Or dered By: Saulo Lacy on 03-16-2023 MCHC (RBC) [Mass/Vol] 35.5 g/dL 32-36 [facility] No Panel InformationOrdered By: Saulo Lacy on 03-16-2023 Estimated GFR (MDRD) Amer 101 mL/min >60 [facility] Comment on above: GFR Calc Estimated GFR (MDRD) Non-Af Amer 83 mL/min >60 [facility] Comment on above: Non- GFR Calc Thyroid Stimulating Hormone (TSH) 1.45 uIU/mL 0.358-3.74 [facility] Whole Blood Vitamin B1 Level 143.8 nmol/L 66.5-200.0 [facility] Comment on above: Performed at: - [address] [id number] Director: Tim Altamirano MD, Phone: [phone] Bedside Estimated GFR (eGFR) > 60.0000 mL/min >60 [facility] Platelets bldOrdered By: Solo Lacy on 03-16-2023 Platelets (Bld) [#/Vol] 295 10*3/uL 150-450 [facility] Serum or plasma albumin jalyn urement (mass/volume)Ordered By: Saulo Lacy on 03-16-2023 Albumin [Mass/Vol] 3.8 g/dL 3.2-5.0 [facility] Serum or plasma albumin/glob ulin mass ratioOrdered By: Saulo Lacy on 03-16-2023 Albumin/Globulin [Mass ratio] 1.0 {ratio} 0.9-2.4 [facility] Serum or plasma calcitriol m easurement (mass/volume)Ordered By: Saulo Lacy on 03-16-2023 1,25-dihydroxyvitamin D3 [Mass/Vol] 49.1 pg/mL 24.8-81.5 [facility] Comment on above: Performed at: [employer] [facility] [id number] Director: Tim Altamirano MD, Phone: [phone] Serum or plasma calcium jalyn urement (mass/volume)Ordered By: Saulo Lacy on 03-16-2023 Calcium [Mass/Vol] 9.3 mg/dL 8.5-10.1 [facility] Serum or plasma creatinine m easurement (mass/volume)Ordered By: Saulo Lacy on 03-16-2023 Creatinine [Mass/Vol] 0.89 mg/dL 0.55-1.02 [facility] Comment on above: The validity of the calculated GFR & GFRAA in patients over 70 years has not been determined. Clinical correlation is essential. Serum or plasma folate measu rement (mass/volume)Ordered By: Saulo Lacy on 03-16-2023 Folate [Mass/Vol] 19.50 ng/mL 3.1-55.4 [facility] Serum or plasma urea nitroge n measurement (mass/volume)Ordered By: Saulo Lacy on 03-16-2023 Urea nitrogen [Mass/Vol] 12 mg/dL 7-18 [facility] Thin prep Papanicolaou smear with manual screeningOrdered By: Saulo Lacy on 03-16-2023 Thin prep Papanicolaou smear with manual screening 17 U/L 15-37 [facility] Thin prep Papanicolaou smear with manual screening 6 5-15 [facility] CTPCRon 03-14-2023 C. trachomatis Interp Normal See CT Interp N [facility] ([place]) Comment on above: Result Comment: C. t rachomatis DNA not detected. Specimen is presumptive negative for C. trachomatis. A negative result does not preclude C. trachomatis infection because results depend on adequate specimen collection, absence of inhibitors, and sufficient DNA to be detected. See CT Interp N Performed By: #### N GPCR1, CTPCR #### [place] [address] C.trachomatis PCR Negative Normal Negative [facility] ([place]) Comment on above: Result Comment: Mole cular (PCR) assay performed on the [employer] 4800 system. Performed By: #### N GPCR1, CTPCR #### [place] [id number] Chlam Source Urine Normal [facility] ([place]) Comment on above: Performed By: #### N GPCR1, CTPCR #### [place] [address] [id number] 03-14-2023 GC PCR Source Urine Normal [facility] ([place]) Comment on above: Performed By: #### N GPCR1, CTPCR #### [place] [address] N. gonorrhoeae (PCR) Negative Normal Negative [facility] ([place]) Comment on above: Result Comment: Mole cular (PCR) assay performed on the [employer] 4800 System. Performed By: #### N GPCR1, CTPCR #### [place] [address] N. gonorrhoeae Interp Normal See NG Interp N [facility] ([place]) Comment on above: Result Comment: N. g onorrhoeae DNA not detected. Specimen is presumptive negative for N. gonorrhoeae. A negative result does not preclude Neisseria gonorrhoeae infection because results depend on adequate specimen collection, absence of inhibitors, and sufficient DNA to be detected. See NG Interp N Performed By: #### N GPCR1, CTPCR #### [place] [address] LABORATORYOrdered By: Clarisse Parker on 03-13-2023 C. trachomatis DNA GREYSON+probe Ql (Unsp spec) Negative (03/13/23 11:09 AM) Invalid Interpretation Code Negative AH Auto Viro/Sero SS C. trachomatis DNA GREYSON+probe Ql (Unsp spec) C. trachomatis DNA not detected. Specimen is presumptive negative forC. trachomatis.A negative result does not preclude C. trachomatis infection becauseresults depend on adequate specimen collection, absence of inhibitors,and sufficient DNA to be detected. Invalid Interpretation Code See CT Interp N AH Auto Viro/Sero SS N. gonorrhoeae DNA GREYSON+probe Ql (Unsp spec) Negative (03/13/23 11:09 AM) Invalid Interpretation Code Negative AH Auto Viro/Sero SS N. gonorrhoeae DNA GREYSON+probe Ql (Unsp spec) N. gonorrhoeae DNA not detected. Specimen is presumptive negative forN. gonorrhoeae. A negative result does not preclude Neisseria gonorrhoeaeinfection because results depend on adequate specimen collection, absenceof inhibitors, and sufficient DNA to be detected. Invalid Interpretation Code See NG Interp N AH Auto Viro/Sero SS Laboratory - Specimen inform ationOrdered By: Clarisse Parker on 03-13-2023 Specimen source Nom (Unsp spec) Urine (03/13/23 11:09 AM) Invalid Interpretation Code AH Auto Viro/Sero SS No Panel Informationon 03-13 Culture Urine >100,000 cfu/ml Mixed growth consistent with normal urogenital paty. Including >100,000 cfu/ml Group B Beta Hemolytic Strep (Strep agalactiae) Sensitivity testing is not recommended for one of the following reasons: 1. Established susceptibility patterns are available or 2. Interpretative criteria are not available. [facility] Work Phone: XR KNEE THREE VIEWS RIGHTon 12-10-2022 XR KNEE THREE VIEWS RIGHT ORIGINAL EXAMINATION: THREE XRAY VIEWS OF THE [...] Date: 12/09/2022 11:57:33 PM Ordering Provider: SPRING Alvarado [facility] ([place]) T4on 12-08-2022 T4 [Mass/Vol] 8.1 ug/dL Normal 4.5-10.9 [facility] ([place]) Comment on above: Result Comment: No te - New Reference Range in effect 20 Performed By: #### M DW, TSH, CBC, GFR, BMP, ADIFF, ANEU ####[place] [id number]#### T4 ####[place] [address] .Auto Diffon 12-07-2022 Basophil, Absolute 0.0 10 3/mcL Normal 0.0-0.2 [facility]) Comment on above: Performed By: #### M DW, TSH, CBC, GFR, BMP, ADIFF, ANEU #### [place] [address] #### T4 #### [address] [address] Basophils/100 WBC (Bld) 0.5 % Normal 0.0-2.5 [facility] ([place]) Comment on above: Performed By: #### M DW, TSH, CBC, GFR, BMP, ADIFF, ANEU #### [place] [address] #### T4 #### [facility] [address] [place], [place] [address] Eosinophil, Absolute 0.1 10 3/mcL Normal 0.0-0.4 [facility] ([place]) Comment on above: Performed By: #### M DW, TSH, CBC, GFR, BMP, ADIFF, ANEU #### [address] [address] #### T4 #### [address] [address] Eosinophils/100 WBC (Bld) 1.0 % Normal 0.0-7.0 [facility] ([place]) Comment on above: Performed By: #### M DW, TSH, CBC, GFR, BMP, ADIFF, ANEU #### [place] [address] #### T4 #### [address] [address] Lymphocyte, Absolute 2.7 10 3/mcL Normal 0.8-3.9 [facility] ([place]) Comment on above: Performed By: #### M DW, TSH, CBC, GFR, BMP, ADIFF, ANEU #### [place] [address] #### T4 #### [address] [address] Lymphocytes/100 WBC (Bld) 33.6 % Normal 10.0-50.0 [facility] ([place]) Comment on above: Performed By: #### M DW, TSH, CBC, GFR, BMP, ADIFF, ANEU #### [place] [address] #### T4 #### [address] [address] Monocyte, Absolute 0.3 10 3/mcL Normal 0.2-1.0 [facility] ([place]) Comment on above: Performed By: #### M DW, TSH, CBC, GFR, BMP, ADIFF, ANEU #### [address] [address] #### T4 #### [address] [address] Monocytes/100 WBC (Bld) 3.6 % Normal 1.7-13.0 [facility] ([place]) Comment on above: Performed By: #### M DW, TSH, CBC, GFR, BMP, ADIFF, ANEU #### [place] [address] [place], [place] [address] #### T4 #### [facility] [address] [place] [address] Neutrophils/100 WBC (Bld) 61.3 % Normal 37.0-80.0 [facility] ([place]) Comment on above: Performed By: #### M DW, TSH, CBC, GFR, BMP, ADIFF, ANEU #### [address] [address] #### T4 #### [facility] [address] [place] [address] .GFRon 12-07-2022 GFR 100 ml/min/1.73sqm Normal [facility] ([place]) Comment on above: Result Comment: GFR Population mean for , Non- Americans Ages 20-29 = 116 mL/min/1.73 sq.m. Ages 30-39 = 107 mL/min/1.73 sq.m. Ages 40-49 = 99 mL/min/1.73 sq.m. Ages 50-59 = 93 mL/min/1.73 sq.m. Ages 60-69 = 85 mL/min/1.73 sq.m. Ages 70+ = 75 mL/min/1.73 sq.m. Chronic Kidney Disease: Less than 60 mL/min/1.73 square meters End Stage Renal Disease: Less than 15 mL/min/1.73 square meters Performed By: #### M DW, TSH, CBC, GFR, BMP, ADIFF, ANEU ####[facility] [place] [place], [place] [address]#### T4 ####[facility] [place] [address] GFR Non- 83 ml/min/1.73sqm Normal [facility] ([place]) Comment on above: Result Comment: GFR Population mean for , Non- Americans Ages 20-29 = 116 mL/min/1.73 sq.m. Ages 30-39 = 107 mL/min/1.73 sq.m. Ages 40-49 = 99 mL/min/1.73 sq.m. Ages 50-59 = 93 mL/min/1.73 sq.m. Ages 60-69 = 85 mL/min/1.73 sq.m. Ages 70+ = 75 mL/min/1.73 sq.m. Chronic Kidney Disease: Less than 60 mL/min/1.73 square meters End Stage Renal Disease: Less than 15 mL/min/1.73 square meters Performed By: #### M DW, TSH, CBC, GFR, BMP, ADIFF, ANEU ####[address] [address]#### T4 ####[place] [address] .MDWon 12-07-2022 Monocyte Distribution Width 15.40 Normal 0.00-20.00 [facility] ([place]) Comment on above: Result Comment: For ED adult patients suspected of sepsis, MDW<=20.0 does not rule out sepsis or risk of sepsis Performed By: #### M DW, TSH, CBC, GFR, BMP, ADIFF, ANEU #### [place] [address] #### T4 #### [place] [address] .NEUABSon 12-07-2022 Neutrophil, Absolute 4.9 10 3/mcL Normal 2.9-6.2 [facility] ([place]) Comment on above: Performed By: #### M DW, TSH, CBC, GFR, BMP, ADIFF, ANEU #### [place] [id number] #### T4 #### [address] 12-07-2022 BUN/Creatinine Ratio 12 ratio Normal 7-27 [facility] ([place] Comment on above: Performed By: #### M DW, TSH, CBC, GFR, BMP, ADIFF, ANEU #### [place] [address] #### T4 #### [address] [address] Calcium [Mass/Vol] 9.2 mg/dL Normal 8.4-10.2 [facility] ([place]) Comment on above: Performed By: #### M DW, TSH, CBC, GFR, BMP, ADIFF, ANEU #### [address] [address] #### T4 #### [address] [address] Chloride [Moles/Vol] 103 mmol/L Normal 98-107 [facility] ([place]) Comment on above: Performed By: #### M DW, TSH, CBC, GFR, BMP, ADIFF, ANEU #### [place] [address] #### T4 #### [address] [address] CO2 [Moles/Vol] 28 mmol/L Normal 22-29 [facility] ([place]) Comment on above: Performed By: #### M DW, TSH, CBC, GFR, BMP, ADIFF, ANEU #### [place] [address] #### T4 #### [place] [address] Creatinine [Mass/Vol] 0.85 mg/dL Normal 0.55-1.02 [facility] ([place]) Comment on above: Performed By: #### M DW, TSH, CBC, GFR, BMP, ADIFF, ANEU #### [place] [address] #### T4 #### [address] [address] Electrolyte Balance 9.0 mEq/L Normal 4.0-15.0 [facility] Comment on above: Performed By: #### M DW, TSH, CBC, GFR, BMP, ADIFF, ANEU #### [place] [address] #### T4 #### [place] [address] Glucose [Mass/Vol] 216 mg/dL High 70-105 [facility] ([place]) Comment on above: Performed By: #### M DW, TSH, CBC, GFR, BMP, ADIFF, ANEU #### [address] [address] #### T4 #### [address] [address] Potassium [Moles/Vol] 4.2 mmol/L Normal 3.5-5.1 [facility] ([place]) Comment on above: Performed By: #### M DW, TSH, CBC, GFR, BMP, ADIFF, ANEU #### [address] [address] #### T4 #### [address] [address] Sodium [Moles/Vol] 140 mmol/L Normal 136-145 [facility] ([place]) Comment on above: Performed By: #### M DW, TSH, CBC, GFR, BMP, ADIFF, ANEU #### [address] [address] #### T4 #### [address] [address] Urea nitrogen [Mass/Vol] 10 mg/dL Normal 7-18 [facility] ([place]) Comment on above: Performed By: #### M DW, TSH, CBC, GFR, BMP, ADIFF, ANEU #### [address] [address] #### T4 #### [address] [address] CBCon 12-07-2022 Erythrocyte distribution width (RBC) [Ratio] 13.0 % Normal 11.5-14.5 [facility] ([place]) Comment on above: Performed By: #### M DW, TSH, CBC, GFR, BMP, ADIFF, ANEU #### [address] [address] #### T4 #### [address] [address] Hematocrit (Bld) [Volume fraction] 41.1 % Normal 37.0-47.0 [facility] ([place]) Comment on above: Performed By: #### M DW, TSH, CBC, GFR, BMP, ADIFF, ANEU #### [place] [address] #### T4 #### [place] [address] Hgb 14.2 G/dL Normal 12.0-16.0 [facility] ([place]) Comment on above: Performed By: #### M DW, TSH, CBC, GFR, BMP, ADIFF, ANEU #### [place] [address] #### T4 #### [place] [address] MCH (RBC) [Entitic mass] 33.8 pg High 27.0-31.2 [facility] ([place]) Comment on above: Performed By: #### M DW, TSH, CBC, GFR, BMP, ADIFF, ANEU #### [place] [address] #### T4 #### [place] [address] MCHC 34.6 G/dL Normal 33.0-37.0 [facility] ([place]) Comment on above: Performed By: #### M DW, TSH, CBC, GFR, BMP, ADIFF, ANEU #### [place] [address] #### T4 #### [place] [address] MCV (RBC) [Entitic vol] 97.6 fL High 80.0-94.0 [facility] ([place]) Comment on above: Performed By: #### M DW, TSH, CBC, GFR, BMP, ADIFF, ANEU #### [place] [address] #### T4 #### [place] [address] Platelet 281 10 3/mcL Normal 130-400 [facility] ([place]) Comment on above: Performed By: #### M DW, TSH, CBC, GFR, BMP, ADIFF, ANEU #### [place] [address] #### T4 #### [place] [address] Platelet mean volume (Bld) [Entitic vol] 6.9 fL Low 7.4-10.4 [facility] ([place]) Comment on above: Performed By: #### M DW, TSH, CBC, GFR, BMP, ADIFF, ANEU #### [place] [address] #### T4 #### [place] [address] RBC 4.21 10 6/mcL Normal 4.20-5.40 [facility] ([place]) Comment on above: Performed By: #### M DW, TSH, CBC, GFR, BMP, ADIFF, ANEU #### [place] [address] #### T4 #### [place] [address] WBC 7.9 10 3/mcL Normal 4.6-10.8 [facility] ([place]) Comment on above: Performed By: #### M DW, TSH, CBC, GFR, BMP, ADIFF, ANEU #### [place] [address] #### T4 #### [place] [address] LABORATORYOrdered By: Brandon Walden on 12-07-2022 Basophil, Absolute 0.0 103/mcL Invalid Interpretation Code 0.0 - 0.2 10^3/mcL AO Workflow SS Basophils/100 WBC (Bld) 0.5 % Invalid Interpretation Code 0.0 - 2.5 % AO Workflow SS Eosinophil, Absolute 0.1 103/mcL Invalid Interpretation Code 0.0 - 0.4 10^3/mcL AO Workflow SS Eosinophils/100 WBC (Bld) 1.0 % Invalid Interpretation Code 0.0 - 7.0 % AO Workflow SS Erythrocyte distribution width (RBC) [Ratio] 13.0 % Invalid Interpretation Code 11.5 - 14.5 % AO Workflow SS Hematocrit (Bld) [Volume fraction] 41.1 % Invalid Interpretation Code 37.0 - 47.0 % AO Workflow SS Hemoglobin (Bld) [Mass/Vol] 14.2 G/dL Invalid Interpretation Code 12.0 - 16.0 G/dL AO Workflow SS Lymphocyte, Absolute 2.7 103/mcL Invalid Interpretation Code 0.8 - 3.9 10^3/mcL AO Workflow SS Lymphocytes/100 WBC (Bld) 33.6 % Invalid Interpretation Code 10.0 - 50.0 % AO Workflow SS MCH (RBC) [Entitic mass] 33.8 pg Invalid Interpretation Code 27.0 - 31.2 pg AO Workflow SS MCHC 34.6 G/dL Invalid Interpretation Code 33.0 - 37.0 G/dL AO Workflow SS MCV (RBC) [Entitic vol] 97.6 fL Invalid Interpretation Code 80.0 - 94.0 fL AO Workflow SS Monocyte distribution width Auto (Bld) [Entitic vol] 15.40 Invalid Interpretation Code 0.00 - 20.00 AO Workflow SS Comment on above: Result Comment: For ED adult patients suspected of sepsis, MDW<=20.0 does not rule out sepsis or risk of sepsis Monocyte, Absolute 0.3 103/mcL Invalid Interpretation Code 0.2 - 1.0 10^3/mcL AO Workflow SS Monocytes/100 WBC (Bld) 3.6 % Invalid Interpretation Code 1.7 - 13.0 % AO Workflow SS Neutrophil, Absolute 4.9 103/mcL Invalid Interpretation Code 2.9 - 6.2 10^3/mcL AO Workflow SS Neutrophils/100 WBC (Bld) 61.3 % Invalid Interpretation Code 37.0 - 80.0 % AO Workflow SS Platelet mean volume (Bld) [Entitic vol] 6.9 fL Invalid Interpretation Code 7.4 - 10.4 fL AO Workflow SS Platelets (Bld) [#/Vol] 281 103/mcL Invalid Interpretation Code 130 - 400 10^3/mcL AO Workflow SS RBC (Bld) [#/Vol] 4.21 106/mcL Invalid Interpretation Code 4.20 - 5.40 10^6/mcL AO Workflow SS WBC (Bld) [#/Vol] 7.9 103/mcL Invalid Interpretation Code 4.6 - 10.8 10^3/mcL AO Workflow SS LABORATORYOrdered By: SYSTEM SYSTEM on 12-07-2022 Calcium [Mass/Vol] 9.2 mg/dL Invalid Interpretation Code 8.4 - 10.2 mg/dL AO ADM SS Chloride [Moles/Vol] 103 mmol/L Invalid Interpretation Code 98 - 107 mmol/L AO ADM SS CO2 [Moles/Vol] 28 mmol/L Invalid Interpretation Code 22 - 29 mmol/L AO ADM SS Creatinine [Mass/Vol] 0.85 mg/dL Invalid Interpretation Code 0.55 - 1.02 mg/dL AO ADM SS Electrolyte Balance 9.0 mEq/L Invalid Interpretation Code 4.0 - 15.0 mEq/L AO ADM SS GFR 100 ml/min/1.73sqm Invalid Interpretation Code AO Chemistry S GFR Non- 83 ml/min/1.73sqm Invalid Interpretation Code AO Chemistry S Glucose [Mass/Vol] 216 mg/dL Invalid Interpretation Code 70 - 105 mg/dL AO ADM SS Potassium [Moles/Vol] 4.2 mmol/L Invalid Interpretation Code 3.5 - 5.1 mmol/L AO ADM SS Sodium [Moles/Vol] 140 mmol/L Invalid Interpretation Code 136 - 145 mmol/L AO ADM SS T4 [Mass/Vol] 8.1 ug/dL Invalid Interpretation Code 4.5 - 10.9 mcg/dL AH ADM SS TSH Qn 1.27 m[IU]/L Invalid Interpretation Code 0.36 - 3.74 mcIU/mL AO ADM SS Urea nitrogen [Mass/Vol] 10 mg/dL Invalid Interpretation Code 7 - 18 mg/dL AO ADM SS Urea nitrogen/Creatinine [Mass ratio] 12 ratio Invalid Interpretation Code 7 - 27 ratio AO ADM SS LABORATORYOrdered By: Blanco Souza on 12-07-2022 Glucose [Mass/Vol] 232 mg/dL Invalid Interpretation Code 70 - 110 mg/dL [facility] Work Phone: TSHon 12-07-2022 TSH Qn 1.27 m[IU]/L Normal 0.36-3.74 [facility] ([place]) Comment on above: Performed By: #### M DW, TSH, CBC, GFR, BMP, ADIFF, ANEU #### [place] [address] #### T4 #### [facility] [address] [place] [address] XR CHEST 2 VIEWSon 3 XR CHEST 2 VIEWS ORIGINAL EXAMINATION: TWO XRAY VIEWS OF THE [...] Date: 12/07/2022 1:47:20 PM Ordering Provider: NAYELY FISHER [facility] ([place]) XR NECK SOFT TISSUEon 2022 XR NECK SOFT TISSUE ORIGINAL EXAMINATION: TWO XRAY VIEWS OF THE [...] Date: 12/07/2022 1:36:44 PM Ordering Provider: NAYELY FISHER [facility] ([place]) Absolute lymphocyte counton 08-12-2022 Lymphocytes Auto (Unsp spec) [#/Vol] 2.19 10*3/uL 0.83-4.51 [facility] Work Phone: Basophil percentageon 2021 Basophils/100 WBC (Bld) 0.2 % 0-1 [facility] Work Phone: Chloride [Moles/Vol] 109 mmol/L 98-107 [facility] Work Phone: Eosinophils/100 WBC (Bld) 0.7 % 0-5 [facility] Work Phone: Glucose [Mass/Vol] 187 mg/dL 74-106 [facility] Work Phone: Comment on above: Fasting Glucose resu lt greater than or equal to 126 mg/dL suggests DIABETES MELLITUS per A.D.A. criteria. Neutrophils (Bld) [#/Vol] 6.8 10*3/uL 2.0-7.7 [facility] Work Phone: Neutrophils/100 WBC (Bld) 71.7 % 47-70 [facility] Work Phone: Potassium [Moles/Vol] 3.6 mmol/L 3.5-5.1 [facility] Work Phone: Sodium [Moles/Vol] 141 mmol/L 136-145 [facility] Work Phone: WBC (Bld) [#/Vol] 9.5 10*3/uL 4.4-11.0 [facility] Work Phone: Blood erythrocytes count (nu mber/volume)on 08-12-2022 RBC (Bld) [#/Vol] 4.29 10*6/uL 4.2-5.4 [facility] Work Phone: Blood hemoglobin measurement (mass/volume)on 08-12-2022 Hemoglobin (Bld) [Mass/Vol] 14.1 g/dL 12.0-15.0 [facility] Work Phone: Blood lymphocytes/100 leukoc yteson 08-12-2022 Lymphocytes/100 WBC (Bld) 23.0 % 19-41 [facility] Work Phone: Blood monocytes/100 leukocyt eson 08-12-2022 Monocytes/100 WBC (Bld) 4.0 % 0-10 [facility] Work Phone: [phone] Blood platelet mean volumeon 08-12-2022 Platelet mean volume (Bld) [Entitic vol] 8.9 fL 6.2-12.0 [facility] Work Phone: [phone] Determination of erythrocyte mean corpuscular volume (MCV)on 08-12-2022 MCV (RBC) [Entitic vol] 98.8 fL 81-99 [facility] Work Phone: [phone] Glucose Glucometer (BldC) [M ass/Vol]on 08-12-2022 Glucose [Mass/Vol] 186 mg/dL 74-106 [facility] Work Phone: [phone] Comment on above: MANAGEMENT OF PATIEN T CARE PER NURSING PROTOCOL Hematocrit Auto (Bld) [Volum e fraction]on 08-12-2022 Hematocrit (Bld) [Volume fraction] 42.4 % 37-47 [facility] Work Phone: [phone] Laboratory - Chemistry and C hemistry - challengeon 08-12-2022 CO2 [Moles/Vol] 29.0 mmol/L 21.0-32.0 [facility] Work Phone: [phone] Urea nitrogen/Creatinine [Mass ratio] 13.3 mg/mg 10-20 [facility] Work Phone: [phone] Laboratory - Hematology and Cell countson 08-12-2022 Erythrocyte distribution width (RBC) [Entitic vol] 44.1 fL 35.1-43.9 [facility] Work Phone: [phone] Erythrocyte distribution width (RBC) [Ratio] 12.1 % 11.6-14.6 [facility] Work Phone: [phone] Immature granulocytes/100 WBC (Bld) 0.400 % 0.0-0.9 [facility] Work Phone: [phone] Comment on above: IG% - Immature Granu locytes (promyelocytes, myelocytes and metamyelocytes) > 1% indicates that a LEFT SHIFT is Present. MCH (RBC) [Entitic mass] 32.9 pg 27.0-32.0 [facility] Work Phone: [phone] Nucleated RBC/100 WBC (Bld) [Ratio] 0 % 0-5 [facility] Work Phone: [phone] MCHC Auto (RBC) [Mass/Vol]on 08-12-2022 MCHC (RBC) [Mass/Vol] 33.3 g/dL 32-36 [facility] Work Phone: No Panel Informationon 08-12 Estimated Creatinine Clearance Calc 117.82 ml/min [facility] Work Phone: [phone] Estimated GFR (MDRD) Amer 110 mL/min >60 [facility] Work Phone: [phone] Comment on above: GFR Calc Estimated GFR (MDRD) Non-Af Amer 91 mL/min >60 [facility] Work Phone: [phone] Comment on above: Non- GFR Calc Troponin I High Sensitivity 5 pg/mL 3.0-54.0 [facility] Work Phone: [phone] Comment on above: Please Note: New Emy t Units and Gender Specific Reference Ranges. For more information see Policy Stat Procedure Dinosaur High Sensitivity Troponin (TNIH) and attachments. Platelets bldon 08-12-2022 Platelets (Bld) [#/Vol] 264 10*3/uL 150-450 [facility] Work Phone: [phone] Serum or plasma calcium jalyn urement (mass/volume)on 08-12-2022 Calcium [Mass/Vol] 9.5 mg/dL 8.5-10.1 [facility] Work Phone: [phone] Serum or plasma creatinine m easurement (mass/volume)on 08-12-2022 Creatinine [Mass/Vol] 0.83 mg/dL 0.55-1.02 [facility] Work Phone: [phone] Comment on above: The validity of the calculated GFR & GFRAA in patients over 70 years has not been determined. Clinical correlation is essential. Serum or plasma urea nitroge n measurement (mass/volume)on 08-12-2022 Urea nitrogen [Mass/Vol] 11 mg/dL 7-18 [facility] Work Phone: Thin prep Papanicolaou smear with manual screeningon 08-12-2022 Thin prep Papanicolaou smear with manual screening 3 5-15 [facility] Work Phone: Absolute lymphocyte counton 06-15-2022 Lymphocytes Auto (Unsp spec) [#/Vol] 3.02 10*3/uL 0.83-4.51 [facility] Work Phone: Basophil percentageon 2021 Basophils/100 WBC (Bld) 0.3 % 0-1 [facility] Work Phone: Bilirubin [Mass/Vol] 0.40 mg/dL 0.20-1.00 [facility] Work Phone: Comment on above: For patients on eltr ombopag therapy, use of Dimension Dinosaur TBIL is not recommended. Chloride [Moles/Vol] 108 mmol/L 98-107 [facility] Work Phone: Cholesterol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 [facility] 04-05-2023 14:22-0400 Respiratory rate 14 /min Paige Cioce HAND BINDER CUTTER.[employer] Work Phone: [facility] 04-05-2023 14:22-0400 Systolic blood pressure 112 mm[Hg] Paige Muller APRN.ELECTRICIAN [employer] Work Phone: [facility] 12-20-2022 09:06-0400 Body height 180.[address] Eliazar Amos Work Phone: [facility] 12-20-2022 09:06-0400 Body mass index (BMI) [Ratio] 38.6 kg/m2 Dr. Eliazar Amos Work Phone: [facility] 12-20-2022 09:06-0400 Body temperature 97.8 [degF] Dr. Eliazar Amos Work Phone: [facility] 12-20-2022 09:06-0400 Body weight 125.[address] Eliazar Amos Work Phone: [facility] 12-20-2022 09:06-0400 Diastolic blood pressure 86 mm[Hg] Dr. Eliazar Amos Work Phone: [facility] 12-20-2022 09:06-0400 Heart rate 78 /min Dr. Eliazar Amos Work Phone: [facility] 12-20-2022 09:06-0400 Respiratory rate 17 /min Dr. Eliazar Amos Work Phone: [facility] 12-20-2022 09:06-0400 SaO2% (BldA) [Mass fraction] 98 % Dr. Eliazar Amos Work Phone: [facility] 12-20-2022 09:06-0400 Systolic blood pressure 120 mm[Hg] Dr. Eliazar Amos Work Phone: [facility] 12-09-2022 17:06-0400 Diastolic Blood Pressure Non-Invasive 96 1 [facility] 12-09-2022 17:06-0400 Heart rate 67 /min SPRING REICHFIELD DO [facility] 12-09-2022 17:06-0400 Respiratory rate 16 /min SPRING REICHFIELD DO [facility] 12-09-2022 17:06-0400 Systolic Blood Pressure Non-Invasive 145 1 SPRING REICHFIELD DO [facility] 12-09-2022 15:35-0400 Body height 180 cm SPRING REICHFIELD DO [facility] 12-09-2022 15:35-0400 Body temperature 97.52 [degF] SPRING REICHFIELD DO [facility] 12-09-2022 15:35-0400 Body weight 110 kg SPRING REICHFIELD DO [facility] 12-09-2022 15:35-0400 Diastolic Blood Pressure Non-Invasive 93 1 SPRING REICHFIELD DO [facility] 12-09-2022 15:35-0400 Heart rate 75 /min SPRING REICHFIELD DO [facility] 12-09-2022 15:35-0400 Respiratory rate 16 /min SPRING REICHFIELD DO [facility] 12-09-2022 15:35-0400 Systolic Blood Pressure Non-Invasive 134 1 SPRING REICHFIELD DO [facility] 12-07-2022 14:43-0400 Diastolic Blood Pressure Non-Invasive [address] NAYELY FISHER MD [facility] 12-07-2022 14:43-0400 Heart rate 90 /min DR NAYELY FISHER MD [facility] 12-07-2022 14:43-0400 Reason For Taking VItal Signs DR NAYELY FISHER MD [facility] 12-07-2022 14:43-0400 Respiratory rate 18 /min DR NAYELY FISHER MD [facility] 12-07-2022 14:43-0400 Systolic Blood Pressure Non-Invasive [address] NAYELY FISHER MD [facility] 12-07-2022 12:52-0400 Diastolic Blood Pressure Non-Invasive [address] NAYELY FISHER MD [facility] 12-07-2022 12:52-0400 Heart rate 68 /min DR NAYELY FISHER MD [facility] 12-07-2022 12:52-0400 Respiratory rate 16 /min DR NAYELY FISHER MD [facility] 12-07-2022 12:52-0400 Systolic Blood Pressure Non-Invasive [address] NAYELY FISHER MD [facility] 12-07-2022 12:30-0400 Body temperature 96.98 [degF] DR NAYELY FISHER MD [facility] 12-07-2022 12:30-0400 Diastolic Blood Pressure Non-Invasive [address] NAYELY FISHER MD [facility] 12-07-2022 12:30-0400 Heart rate 100 /min DR NAYELY FISHER MD [facility] 12-07-2022 12:30-0400 Respiratory rate 18 /min DR NAYELY FISHER MD [facility] 12-07-2022 12:30-0400 Systolic Blood Pressure Non-Invasive [address] NAYELY FISHER MD [facility] 08-12-2022 19:45-0500 Respiratory rate 16 /min Dr. Eliazar Amos Work Phone: [facility] Work Phone: 08-12-2022 18:14-0500 Heart rate 103 /min Dr. Eliazar Amos Work Phone: [facility] Work Phone: 08-12-2022 18:14-0500 SaO2% (BldA) [Mass fraction] 99 % Dr. Eliazar Amos Work Phone: [facility] Work Phone: 08-12-2022 15:59-0500 Body height 180.[address] Eliazar Amos Work Phone: [facility] Work Phone: 08-12-2022 15:59-0500 Body mass index (BMI) [Ratio] 38.5 kg/m2 Dr. Eliazar Amos Work Phone: [facility] Work Phone: 08-12-2022 15:59-0500 Body temperature 98.3 [degF] Dr. Eliazar Amos Work Phone: [facility] Work Phone: 08-12-2022 15:59-0500 Body weight 125.[address] Eliazar Amos Work Phone: [facility] Work Phone: 08-12-2022 15:59-0500 Diastolic blood pressure 88 mm[Hg] Dr. Eliazar Amos Work Phone: [facility] Work Phone: 08-12-2022 15:59-0500 Systolic blood pressure 153 mm[Hg] Dr. Eliazar Amos Work Phone: [facility] Work Phone: 07-10-2022 13:47-0500 Body temperature 98.6 [degF] DEAN LYON MD [facility] 07-10-2022 13:47-0500 Diastolic blood pressure 80 mm[Hg] DEAN LYON MD [facility] 07-10-2022 13:47-0500 Heart rate 85 /min DEAN LYON MD [facility] 07-10-2022 13:47-0500 Respiratory rate 18 /min DEAN LYON MD [facility] 07-10-2022 13:47-0500 Systolic blood pressure 123 mm[Hg] DEAN LYON MD [facility] 06-25-2022 13:53-0400 Heart rate 89 /min Dr. Eliazar Amos Work Phone: [facility] Work Phone: 06-25-2022 13:53-0400 Respiratory rate 16 /min Dr. Eliazar Amos Work Phone: [facility] Work Phone: 06-25-2022 13:09-0400 Body height 180.[address] Eliazar Amos Work Phone: [facility] Work Phone: 06-25-2022 13:09-0400 Body mass index (BMI) [Ratio] 37.5 kg/m2 Dr. Eliazar Amos Work Phone: [facility] Work Phone: 06-25-2022 13:09-0400 Body temperature 97.5 [degF] Dr. Eliazar Amos Work Phone: [facility] Work Phone: 06-25-2022 13:09-0400 Body weight 122.[address] Eliazar Amos Work Phone: [facility] Work Phone: 06-25-2022 13:09-0400 Diastolic blood pressure 137 mm[Hg] Dr. Eliazar Amos Work Phone: [facility] Work Phone: 06-25-2022 13:09-0400 SaO2% (BldA) [Mass fraction] 98 % Dr. Eliazar Amos Work Phone: [facility] Work Phone: 06-25-2022 13:09-0400 Systolic blood pressure 163 mm[Hg] Dr. Eliazar Amos Work Phone: [facility] Work Phone: 06-07-2022 14:33-0400 Body height 180.[address] Eliazar Amos Work Phone: [facility] Work Phone: 06-07-2022 14:33-0400 Body mass index (BMI) [Ratio] 40 kg/m2 Dr. Eliazar Amos Work Phone: [facility] Work Phone: 06-07-2022 14:33-0400 Body temperature 97.1 [degF] Dr. Eliazar Amos Work Phone: [facility] Work Phone: 06-07-2022 14:33-0400 Body weight 130.[address] Eliazar Amos Work Phone: [facility] Work Phone: 06-07-2022 14:33-0400 Diastolic blood pressure 92 mm[Hg] Dr. Eliazar Amos Work Phone: [facility] Work Phone: 06-07-2022 14:33-0400 Heart rate 69 /min Dr. Eliazar Amos Work Phone: [facility] Work Phone: 06-07-2022 14:33-0400 Respiratory rate 14 /min Dr. Eliazar Amos Work Phone: [facility] Work Phone: 06-07-2022 14:33-0400 SaO2% (BldA) [Mass fraction] 97 % Dr. Eliazar Amos Work Phone: [facility] Work Phone: 06-07-2022 14:33-0400 Systolic blood pressure 142 mm[Hg] Dr. Eliazar Amos Work Phone: [facility] Work Phone: 04-04-2022 22:16-0400 Body height 180.[address] PATRIA PARRA DO [facility] 04-04-2022 22:16-0400 Body temperature 98.06 [degF] DR PATRIA PARRA DO [facility] 04-04-2022 22:16-0400 Body weight 118.[address] PATRIA PARRA DO [facility] 04-04-2022 22:16-0400 Diastolic blood pressure 90 mm[Hg] DR PATRIA PARRA DO [facility] 04-04-2022 22:16-0400 Heart rate 75 /min DR PATRIA PARRA DO [facility] 04-04-2022 22:16-0400 Respiratory rate 18 /min DR PATRIA PARRA DO [facility] 04-04-2022 22:16-0400 Systolic blood pressure 135 mm[Hg] DR PATRIA PARRA DO [facility] 02-16-2022 14:15-0400 Body height 177 cm MARIYARADHA LEALKA DO [facility] 02-16-2022 14:15-0400 Body temperature 98.42 [degF] MARIYA BELLAESKA DO [facility] 02-16-2022 14:15-0400 Body weight 122 kg MARIYARADHA LEALKA DO [facility] 02-16-2022 14:15-0400 Diastolic blood pressure 89 mm[Hg] MARIYA BELLAESKA DO [facility] 02-16-2022 14:15-0400 Heart rate 110 /min MARIYA JENAESKA DO [facility] 02-16-2022 14:15-0400 Respiratory rate 18 /min MARIYA JENAESKA DO [facility] 02-16-2022 14:15-0400 Systolic blood pressure 135 mm[Hg] MARIYA BELLAESKA DO [facility] 12-26-2021 16:10-0400 Body temperature 97.7 [degF] DR PATRIA PARRA DO [facility] 12-26-2021 16:10-0400 Diastolic blood pressure 84 mm[Hg] DR PATRIA PARRA DO [facility] 12-26-2021 16:10-0400 Heart rate 94 /min DR PATRIA PARRA DO [facility] 12-26-2021 16:10-0400 Respiratory rate 18 /min DR PATRIA PARRA DO [facility] 12-26-2021 16:10-0400 Systolic blood pressure 122 mm[Hg] DR PATRIA PARRA DO [facility] 12-08-2021 17:13-0400 Body height 180.[address] Maren Sultana Work Phone: [facility] Work Phone: 12-08-2021 17:13-0400 Body mass index (BMI) [Ratio] 40 kg/m2 Dr. Maren Sultana Work Phone: [facility] Work Phone: 12-08-2021 17:13-0400 Body temperature 96.7 [degF] Dr. Maren Sultana Work Phone: [facility] Work Phone: 12-08-2021 17:13-0400 Body weight 130.[address] Maren Sultana Work Phone: [facility] Work Phone: 12-08-2021 17:13-0400 Diastolic blood pressure 122 mm[Hg] Dr. Maren Sultana Work Phone: [facility] Work Phone: 12-08-2021 17:13-0400 Heart rate 76 /min Dr. Maren Sultana Work Phone: [facility] Work Phone: 12-08-2021 17:13-0400 Respiratory rate 15 /min Dr. Maren Sultana Work Phone: [facility] Work Phone: 12-08-2021 17:13-0400 SaO2% (BldA) [Mass fraction] 98 % Dr. Maren Sultana Work Phone: [facility] Work Phone: 12-08-2021 17:13-0400 Systolic blood pressure 144 mm[Hg] Dr. Maren Sultana Work Phone: [facility] Work Phone: 11-17-2021 14:46-0400 Body mass index (BMI) [Ratio] 39.4 kg/m2 Dr. Maren Sultana Work Phone: [facility] Work Phone: 11-17-2021 14:46-0400 Body temperature 98.3 [degF] Dr. Maren Sultana Work Phone: [facility] Work Phone: 11-17-2021 14:46-0400 Body weight 128.[address] Maren Sultana Work Phone: [facility] Work Phone: 11-17-2021 14:46-0400 Diastolic blood pressure 82 mm[Hg] Dr. Maren Sultana Work Phone: [facility] Work Phone: 11-17-2021 14:46-0400 Heart rate 90 /min Dr. Maren Sultana Work Phone: [facility] Work Phone: 11-17-2021 14:46-0400 Respiratory rate 14 /min Dr. Maren Sultana Work Phone: [facility] Work Phone: 11-17-2021 14:46-0400 SaO2% (BldA) [Mass fraction] 98 % Dr. Maren Sultana Work Phone: [facility] Work Phone: 11-17-2021 14:46-0400 Systolic blood pressure 126 mm[Hg] Dr. Maren Sultana Work Phone: [facility] Work Phone: 10-28-2021 13:27-0500 Body mass index (BMI) [Ratio] 40 kg/m2 Dr. Maren Sultana Work Phone: [facility] Work Phone: 10-28-2021 13:27-0500 Body temperature 97.7 [degF] Dr. Maren Sultana Work Phone: [facility] Work Phone: 10-28-2021 13:27-0500 Body weight 130.[address] Maren Sultana Work Phone: [facility] Work Phone: 10-28-2021 13:27-0500 Heart rate 67 /min Dr. Maren Sultana Work Phone: [facility] Work Phone: 10-28-2021 13:27-0500 Respiratory rate 16 /min Dr. Maren Sultana Work Phone: [facility] Work Phone: 10-28-2021 13:27-0500 SaO2% (BldA) [Mass fraction] 97 % Dr. Maren Sultana Work Phone: [facility] Work Phone: 09-02-2021 12:19-0500 Body mass index (BMI) [Ratio] 38.9 kg/m2 Dr. Maren Sultana Work Phone: [facility] Work Phone: 09-02-2021 12:19-0500 Body temperature 95.9 [degF] Dr. Maren Sultana Work Phone: [facility] Work Phone: 09-02-2021 12:19-0500 Body weight 126.[address] Maren Sultana Work Phone: [facility] Work Phone: 09-02-2021 12:19-0500 Diastolic blood pressure 86 mm[Hg] Dr. Maren Sultana Work Phone: [facility] Work Phone: 09-02-2021 12:19-0500 Heart rate 90 /min Dr. Maren Sultana Work Phone: [facility] Work Phone: 09-02-2021 12:19-0500 Respiratory rate 16 /min Dr. Maren Sultana Work Phone: [facility] Work Phone: 09-02-2021 12:19-0500 SaO2% (BldA) [Mass fraction] 97 % Dr. Maren Sultana Work Phone: [facility] Work Phone: 09-02-2021 12:19-0500 Systolic blood pressure 124 mm[Hg] Dr. Maren Sultana Work Phone: [facility] Work Phone: Encounters Encounter Date Encounter Type Care Provider Facility Start: 03-20-2025 End: 03-20-[address] Eliazar Amos MD -[facility] Work Phone: Start: 03-20-2025 End: 03-20-[address] Eliazar Amos MD Work Phone: -[facility] Start: 03-18-2025 End: 03-18-2025 Emergency department patient visit Dr. Eliazar Amos MD Work Phone: -Emergency Department Work Phone: Start: 02-17-2025 ambulatory Eliazar Amos Facili ty:[facility] Start: 01-20-2025 End: 01-20-2025 Telephone encounter Paige Muller HAND BINDER C[employer]TER[employer] Work Phone: [facility] [place] Comment on above: Insurance Authorizat ion (OZEMPIC) 1 mg/dose (4 mg/3 mL)) Start: 01-17-2025 End: 01-17-2025 Emergency department patient visit Dr. Eliazar Amos MD Work Phone: -Emergency Department Work Phone: Start: 01-16-2025 End: 01-20-2025 Telephone encounter Paige Muller HAND BINDER CUTTER.[employer] Work Phone: [facility] [place] Comment on above: Medication Preauthor ization Start: 01-02-2025 End: 01-14-2025 Telephone encounter Paige Muller HAND BINDER CUTTER.[employer] Work Phone: [facility] [place] Comment on above: Insurance Authorizat ion ( (MOUNJARO) 5 mg/0.5 mL); Medication Problem Start: 01-01-2025 End: 01-01-2025 Patient encounter procedure Paige Muller HAND B[employer]ER C[employer]TER.[employer] Work Phone: Endocrinology Comment on above: Diabetes mellitus tr eated with injections of non-insulin medication (HCC) (Primary Dx) Start: 01-01-2025 End: 01-01-2025 ambulatory PAIGE MULLER Facility:[facility] Start: 11-15-2024 End: 11-15-[address] Eliazar Amos MD Work Phone: [facility] Work Phone: Start: 11-15-2024 End: 11-15-[address] Eliazar Amos MD -Laboratory, Specimen Work Phone: Start: 11-15-2024 End: 11-15-[address] Eliazar Amos MD -[facility] Work Phone: Start: 11-15-2024 End: 11-15-2024 ambulatory [facility] Facility:[facility] Start: 11-15-2024 End: 11-15-2024 ambulatory [facility] Facility:[facility] Start: 11-07-2024 End: 11-07-2024 Telephone encounter Paige Hectoroce HAND BINDER CUTTER.[employer] Work Phone: Endocrinology Comment on above: Appointment Office V erification Start: 11-06-2024 End: 11-06-[address] Delores Begum MD -[facility] Work Phone: Start: 11-06-2024 End: 11-06-2024 ambulatory [facility] Facility:[facility] Start: 10-30-2024 End: 10-30-2024 ambulatory Paige C Cioce HAND B[employer]ER C[employer]TER.[employer] Work Phone: Endocrinology Comment on above: Unruly Denial Start: 10-30-2024 End: 10-30-2024 E-mail encounter from caregiver Paige Hectoroce HAND BINDER CUTTER.[employer] Work Phone: Endocrinology Start: 10-28-2024 End: 10-29-2024 Telephone encounter Paige Rober Cioce HAND BINDER CUTTER.[employer] Work Phone: Endocrinology Comment on above: Patient Question (Re quest medication change) Start: 10-14-2024 End: 10-15-2024 Emergency department patient visit Dr. Shlomo Santizo DO -Emergency Department Work Phone: Start: 10-10-2024 End: 10-10-2024 Refill Paige C Cioce HAND B[employer]ER C[employer]TER.[employer] Work Phone: Endocrinology Comment on above: Refill Request Start: 09-24-2024 End: 09-24-2024 Telephone encounter Paigemadeleine Muller APRN.ELECTRICIAN [employer] Work Phone: Endocrinology Comment on above: Prior Authorization freestyle test strips Start: 09-23-2024 End: 09-23-2024 Refill Paige Muller APRN.ELECT[employer]IC[employer] Work Phone: Endocrinology Comment on above: Refill Request Start: 09-07-2024 End: 09-07-2024 Emergency department patient visit Mona Collazo DO Work Phone: [facility] Comment on above: URI with cough and c ongestion (Primary Dx); Left otitis media, unspecified otitis media type; Pharyngitis, unspecified etiology Start: 07-25-2024 End: 07-25-2024 ambulatory KATIE BRIZUELA Facility:[facility] Start: 07-25-2024 End: 07-25-2024 Office outpatient visit 15 minutes Katie Brizuela MD Work Phone: [facility] Comment on above: Acute upper respirat ory infection (Primary Dx) Start: 07-19-2024 End: 07-19-20[facility] Start: 06-26-2024 End: 06-27-2024 Telephone encounter Paige Muller APRN.ELECT[employer]IC[employer] Work Phone: Endocrinology Comment on above: Refill Request (trul icity) Start: 05-31-2024 End: 05-31-2024 ambulatory Paige Muller APRN.ELECT[employer]IC[employer] Work Phone: Endocrinology Comment on above: Trulicity Start: 05-31-2024 End: 05-31-2024 E-mail encounter from caregiver Paige Muller APRN.ELECT[employer]IC[employer] Work Phone: Endocrinology Start: 05-27-2024 End: 05-27-2024 Orders Only Paige Muller APRN.ELECT[employer]IC[employer] Work Phone: Endocrinology Comment on above: Diabetes mellitus tr eated with injections of non-insulin medication (HCC) (Primary Dx) Start: 05-24-2024 End: 05-25-2024 Telephone encounter Paige C Cioce HAND BINDER CUTTER.[employer] Work Phone: Endocrinology Comment on above: Medication Problem Start: 05-03-2024 End: 05-03-2024 ambulatory Eliazar Amos Facility:[facility] Start: 05-02-2024 End: 05-02-2024 Emergency department patient visit SPRING BRANCH DO [facility] Start: 02-20-2024 Refill Paige C Cioce HAND BINDER CUTTER.[employer] Work Phone: Endocrinology Comment on above: Refill Request Start: 02-13-2024 Telephone encounter Paige C C ioce HAND BINDER CUTTER.[employer] Work Phone: Endocrinology Comment on above: Medication Problem; Results; Prior Auth Appeal (Unruly) Start: 02-02-2024 End: 02-02-2024 ambulatory PAIGE C CIOCE Facility:[facility] Start: 01-25-2024 Telephone encounter Paige C C ioce HAND BINDER CUTTER.[employer] Work Phone: Endocrinology Comment on above: Prior Authorization Unruly (Please resend PA in 3 days, to [facility] through [facility]. Not available yet//[place]) Start: 01-24-2024 End: 01-24-2024 ambulatory PAIGE C CIOCE Facility:[facility] Start: 01-24-2024 End: 01-24-2024 Patient encounter procedure Paige C Cioce HAND BINDER CUTTER.[employer] Work Phone: Endocrinology Comment on above: Poorly controlled ty pe 2 diabetes mellitus (HCC) (Primary Dx) Start: 01-16-2024 Refill Paige C Cioce HAND BINDER CUTTER.[employer] Work Phone: Endocrinology Comment on above: Refill Request Start: 11-22-2023 Non-patient / Non-visit Dr. Edwin Amos Work Phone: [facility] Start: 11-22-2023 End: 11-22-2023 Admission to same day surgery center Dr. Eliazar Amos Work Phone: [facility] Start: 11-22-2023 End: 11-22-[address] Eliazar Amos Work Phone: [facility] Work Phone: Start: 10-25-2023 End: 10-25-2023 Emergency department patient visit ELIAZAR AMOS MD Facility:[facility] Start: 10-24-2023 End: 10-24-2023 Emergency department patient visit DR MAREN WAN MD [facility] Start: 10-12-2023 End: 10-12-[address] Eliazar Amos Work Phone: [facility] Work Phone: Start: 10-12-2023 End: 10-12-[address] Eliazar Amos Work Phone: [facility] Work Phone: Start: 10-10-2023 End: 10-10-[address] Eliazar Amos Work Phone: [facility] Work Phone: Start: 09-27-2023 Non-patient / Non-visit Dr. Edwin Amos Work Phone: [facility] Start: 09-27-2023 End: 09-27-[address] Eliazar Amos Work Phone: [facility] Work Phone: Start: 09-27-2023 End: 09-27-[address] Eliazar Amos Work Phone: [facility]/Neurology Work Phone: Start: 08-21-2023 End: 08-21-[address] Eliazar Amos Work Phone: [facility] Work Phone: Start: 08-09-2023 End: 08-09-2023 Patient encounter procedure Paige Muller APRN.[employer]LECTRICIAN [employer] Work Phone: Endocrinology Comment on above: Poorly controlled ty pe 2 diabetes mellitus (HCC) (Primary Dx) Start: 08-03-2023 End: 08-03-[address] Eliazar Amos Work Phone: [facility] Work Phone: Start: 08-03-2023 End: 08-03-[address] Eliazar Amos Work Phone: [facility] Work Phone: Start: 06-21-2023 End: 06-21-2023 Patient encounter procedure Paige Muller HAND BINDER CUTTER.[employer]IC[employer] Work Phone: Endocrinology Comment on above: Poorly controlled ty pe 2 diabetes mellitus (HCC) (Primary Dx) Start: 05-30-2023 End: 05-30-[address] Eliazar Amos Work Phone: [facility] Work Phone: Start: 05-28-2023 ambulatory Paige Muller APRN.[employer]LECT[employer]IC[employer] Work Phone: Endocrinology Comment on above: Thyroid Start: 05-19-2023 End: 05-19-2023 Subsequent hospital visit by physician [facility] Work Phone: Radiology Comment on above: Type II diabetes debbie litus with manifestations (HCC) [E11.8] Start: 05-17-2023 End: 05-17-2023 Patient encounter procedure Paige Muller HAND BINDER CUTTER.[employer] Work Phone: Endocrinology Comment on above: Type II diabetes debbie litus with manifestations (HCC) (Primary Dx) Start: 05-11-[address] Cyn Amos Work Phone: [facility] Start: 05-11-2023 End: 05-11-2023 Emergency department patient visit Dr. Eliazar Amos Work Phone: [facility] Start: 05-11-2023 End: 05-11-[address] Eliazar Amos Work Phone: [facility] Work Phone: Start: 05-09-2023 End: 05-09-[address] Eliazar Amos Work Phone: [facility] Work Phone: Start: 05-03-2023 End: 05-03-[address] Eliazar Amos Work Phone: [facility] Work Phone: Start: 05-03-2023 End: 05-03-[address] Eliazar Amos Work Phone: [facility] Work Phone: Start: 05-02-2023 End: 05-02-[address] Eliazar Amos Work Phone: [facility] Work Phone: Start: 04-09-2023 Telephone encounter Paige ivy HAND BINDER CUTTER.[employer] Work Phone: Endocrinology Comment on above: Results Start: 04-06-2023 Refill Paige Muller HAND BINDER CUTTER.[employer] Work Phone: Endocrinology Comment on above: Med Change Request Start: 04-05-2023 End: 04-05-2023 Patient encounter procedure Paige Muller HAND BINDER CUTTER.[employer] Work Phone: Endocrinology Comment on above: Type II diabetes debbie litus with manifestations (HCC) (Primary Dx); Goiter Start: 04-05-2023 Telephone encounter Paige ivy HAND BINDER CUTTER.[employer] Work Phone: Endocrinology Comment on above: Patient Question Start: 03-17-2023 End: 03-18-2023 ambulatory ELIAZAR AMOS MD Facility:B Start: 03-16-2023 End: 03-16-[address] Eliazar Amos Work Phone: [facility] Work Phone: Start: 03-16-2023 End: 03-16-[address] Eliazar Amos Work Phone: [facility] Work Phone: Start: 03-13-2023 End: 03-18-2023 ambulatory MARINE BACON MD Facility:B Start: 03-13-2023 End: 03-17-2023 Outreach Lab MARINE BACON MD [facility] Start: 12-23-2022 End: 12-23-[address] Eliazar Amos Work Phone: [facility]-Pulmonary Services/Neurology Work Phone: Start: 12-20-2022 End: 12-20-[address] Eliazar Amos Work Phone: [facility] Work Phone: Start: 12-19-2022 End: 12-19-[address] Eliazar Amos Work Phone: [facility] Work Phone: Start: 12-09-2022 End: 12-09-2022 Emergency department patient visit [facility] Facility:B Start: 12-09-2022 End: 12-09-2022 Emergency department patient visit [facility] Start: 12-07-2022 End: 12-07-2022 Emergency department patient visit DR NAYELY FISHER MD Facility:B Start: 12-07-2022 End: 12-07-2022 Emergency department patient visit DR NAYELY FISHER MD [facility] Start: 08-12-2022 End: 08-12-2022 Emergency department patient visit Dr. Eliazar Amos Work Phone: [facility]-Emergency Department Start: 07-10-2022 End: 07-10-2022 Emergency department patient visit DEAN LYON MD [facility] Start: 06-25-2022 End: 06-25-2022 Emergency department patient visit Dr. Eliazar Amos Work Phone: [facility]-Emergency Department Start: 06-15-2022 End: 06-15-[address] Eliazar Amos Work Phone: [facility] Work Phone: Start: 06-15-2022 End: 06-15-[address] Eliazar Amos Work Phone: [facility] Start: 06-07-2022 End: 06-07-[address] Eliazar Amos Work Phone: [facility] Start: 04-04-2022 End: 04-04-2022 Emergency department patient visit DR PATRIA PARRA DO [facility] Start: 02-16-2022 End: 02-16-2022 Emergency department patient visit MARIYA CALI DO [facility] Start: 12-26-2021 End: 12-26-2021 Emergency department patient visit DR PATRIA PARRA DO [facility] Start: 12-08-2021 End: 12-08-2021 Emergency department patient visit Dr. Maren Sultana Work Phone: [facility]-Emergency Department Start: 11-17-2021 End: 11-17-[address] Maren Sultana Work Phone: [facility]-Laboratory, Specimen Start: 10-28-2021 End: 10-28-[address] Maren Sultana Work Phone: [facility] Start: 09-02-2021 End: 09-02-[address] Maren Sultana Work Phone: [facility] Procedures Date Procedure Procedure Detail Performing Clinician Start: 01-17-2025 X-ray of chest, PA a nd lateral views Dr. Eliazar Amos MD Work Phone: Start: 11-15-2024 SARS-CoV-2, Influenz a & RSV (PCR) Dr. Eliazar Amos MD Work Phone: Start: 10-14-[address] Eliazar Amos MD Work Phone: Start: 10-14-2024 Measurement of renal function Dr. Eliazar Amos MD Work Phone: Comment on above: GFR Calc Start: 10-14-2024 X-ray of chest, PA a nd lateral views Dr. Eliazar Amos MD Work Phone: Start: 10-14-2024 SARS-CoV-2, Influenz a & RSV (PCR) Dr. Eliazar Amos MD Work Phone: Start: 11-22-2023 Chondrectomy of semilunar cartilage of knee Dr. 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 Eliazar Amos Work Phone: Start: 03-16-2023 MRI of joint of lowe r extremity Dr. Eliazar Amos Work Phone: Start: 08-12-2022 Plain chest X-ray Dr. Cyn Amos Work Phone: Start: 06-25-2022 Plain chest X-ray Dr. Cyn Amos Work Phone: Start: 02-21-2021 Antibody screen Comment on above: Order Comment: Speci men Type: BLOOD SPECIMEN Performed By: #### T SCR #### [facility] CLIA [id number] [address] [place] [id number] PATRIA PARRA DO Comment on above: nose bleed H/O: surgery History of myringotomy Dr. Rodri Sultana Work Phone: History of tonsillectomy History of tonsillectomy and adenoidectomy Dr. Maren Sultana Work Phone: Myringotomy and insertion of tympanic ventilation tube DR PATRIA PARRA DO SARS-CoV-2 & FLU Ant igen (Rapid) Dr. Eliazar Amos Work Phone: Tonsillectomy and adenoidectomy DR PATRIA PARRA DO Plan of Treatment Date Care Activity Detail Author Start: 04-16-2074 RSV Immunization for Adults (1 - 1-dose 75+ series) RSV Immunization for Adults (1 - 1-dose 75+ series) [facility] Start: 2048 Zoster Vaccines (1 of 2) Zoster Vaccines (1 of 2) [facility] Start: 12-09-2031 Tetanus vaccination [facility] Start: 12-09-2031 Urine microalbumin profile DTaP,Tdap,Td Vaccine (9 - Td or Tdap) [facility] Start: 02-21-2031 DTaP/Tdap/Td Vaccines (8 - Td or Tdap) DTaP/Tdap/Td Vaccines (8 - Td or Tdap) [facility] Start: 02-21-2031 Urine microalbumin profile [facility] Start: 01-01-2026 Hepatitis B screening Urine Albumin:Creatinine Ratio [facility] Start: 01-01-2026 Hepatitis B surface antibody level LDL Cholesterol [facility] Start: 07-03-2025 Hemoglobin A1c measurement HbA1C [facility] Start: 05-05-2025 Influenza vaccination Influenza Vaccine (Season Ended) [facility] Start: 04-02-2025 End: 04-02-2025 Patient encounter procedure 04/02/2025 2:45 PM EDT Office Visit Endocrinology [address] [place] [address] Paige Muller APRN.ELECTRICIAN [employer] [address] [place] [address] 3 month follow up Endocrinology Comment on above: 3 month follow up Start: 03-18-2025 [facility] Start: 02-05-2025 End: 02-05-2025 Patient encounter procedure 02/05/2025 12:15 PM EDT Office Visit Endocrinology [address] [place] [address] Paige Muller APRN.ELECTRICIAN [employer] [address] [place] [address] diabetes Endocrinology Comment on above: diabetes Start: 02-03-2025 End: 02-03-2025 ambulatory 02/03/2025 11:00 AM EDT Education Endocrinology [address] [place] [address] Cristina Delgado, RD [address] [address] Diabetes mellitus treated with injections of non-insulin medication (HCC) [E11.9, Z79.85] Endocrinology Comment on above: Diabetes mellitus treated with injection s of non-insulin medication (HCC) [E11.9, Z79.85] Start: 02-01-2025 Hepatitis B screening Urine Albumin:Creatinine Ratio [facility] Start: 02-01-2025 Hepatitis B surface antibody level LDL Cholesterol [facility] Start: 01-17-2025 End: 01-17-2025 [facility] Start: 01-01-2025 End: 04-02-2025 25-hydroxyvitamin D3 [Mass/volume] in Serum or Plasma [facility] Comment on above: Expected: 01/01/2025, Expires: Start: 01-01-2025 End: 04-02-2025 Hemoglobin A1c in Blood [facility] Comment on above: Expected: 01/01/2025, Expires: Start: 01-01-2025 End: 04-02-2025 LIPID PANEL, NONFASTING [facility] Work Phone: Comment on above: Expected: 01/01/2025, Expires: Start: 01-01-2025 End: 04-02-2025 Microalbumin/Creatinine [Mass Ratio] in Urine [facility] Comment on above: Expected: 01/01/2025, Expires: Start: 01-01-2025 End: 04-02-2025 Thyrotropin [Units/volume] in Serum or Plasma [facility] Comment on above: Expected: 01/01/2025, Expires: Start: 01-01-2025 End: 04-02-2025 Thyroxine (T4) free [Mass/volume] in Serum or Plasma [facility] Comment on above: Expected: 01/01/2025, Expires: Start: 11-07-2024 End: 11-07-2024 Patient encounter procedure 11/07/2024 1:15 PM EST Office Visit Endocrinology [address] [place] [address] Paige Muller APRN.ELECTRICIAN [employer] [address] [place] [address] Follow Up Endocrinology Comment on above: Follow Up Start: 10-15-2024 [facility] Start: 10-14-2024 [facility] Start: 08-03-2024 Hemoglobin A1c measurement HbA1C [facility] Start: 05-05-2024 COVID-19 VACCINE ( season) COVID-19 VACCINE () [facility] Start: 05-05-2024 Covid-19 Vaccine () Covid-19 Vaccine () [facility] Start: 05-05-2024 Influenza vaccination [facility] Start: 04-05-2024 Hepatitis B screening Urine Albumin:Creatinine Ratio [facility] Start: 04-05-2024 Hepatitis B surface antibody level LDL Cholesterol [facility] Start: 12-04-2023 End: 03-04-2024 ALBUMIN/CREAT RATIO RND UR [facility] Work Phone: Comment on above: Expected: 12/04/2023, Expires: 4 Expected: 12/04/2023 , Expires: 03/04/2024 Start: 12-04-2023 End: 03-04-2024 Comprehensive metabolic 2000 panel - Serum or Plasma [facility] Work Phone: Comment on above: Expected: 12/04/2023, Expires: 4 Expected: 12/04/2023 , Expires: 03/04/2024 Start: 12-04-2023 End: 03-04-2024 Hemoglobin A1c in Blood [facility] Work Phone: Comment on above: Expected: 12/04/2023, Expires: 4 Expected: 12/04/2023 , Expires: 03/04/2024 Start: 12-04-2023 End: 03-04-2024 LIPID PANEL, NONFASTING [facility] Work Phone: Comment on above: Expected: 12/04/2023, Expires: Expected: 12/04/2023 , Expires: 03/04/2024 Start: 11-22-2023 Patient discharge [facility] Start: 11-22-2023 Application of ice collar, cap or bag [facility] Start: 11-22-2023 Assessment of risk of venous thromboembolism [facility] Start: 11-22-2023 Catheterization of vein [facility] Start: 11-22-2023 Deep breathing and coughing exercises [facility] Start: 11-22-2023 Following clinical pathway protocol [facility] Start: 11-22-2023 Gait training procedure [facility] Start: 11-22-2023 Incentive spirometry [facility] Start: 11-22-2023 Introduction of urinary catheter [facility] Start: 11-22-2023 Patient education [facility] Start: 11-22-2023 Taking patient vital signs [facility] Start: 11-22-2023 Vital signs measurements [facility] Start: 11-22-2023 [facility] Start: 11-22-2023 Electrocardiographic procedure [facility] Start: 11-22-2023 Medication education [facility] Start: 11-03-2023 End: 01-03-2024 ALBUMIN/CREAT RATIO RND UR ALBUMIN/CREAT RATIO RND UR Lab Routine Type II diabetes mellitus with manifestations (HCC) Expected: 11/03/2023, Expires: 01/03/2024 [facility] Work Phone: Comment on above: Expected: 11/03/2023, Expires: 4 Start: 11-03-2023 End: 01-03-2024 Comprehensive metabolic 2000 panel - Serum or Plasma COMP METABOLIC PANEL Lab Routine Type II diabetes mellitus with manifestations (HCC) Expected: 11/03/2023, Expires: 01/03/2024 [facility] Work Phone: Comment on above: Expected: 11/03/2023, Expires: 4 Start: 11-03-2023 End: 01-03-2024 Hemoglobin A1c in Blood HGB A1C Lab Routine Type II diabetes mellitus with manifestations (HCC) Expected: 11/03/2023, Expires: 01/03/2024 [facility] Work Phone: Comment on above: Expected: 11/03/2023, Expires: Start: 11-03-2023 End: 01-03-2024 LIPID PANEL, NONFASTING LIPID PANEL, NONFASTING Lab Routine Type II diabetes mellitus with manifestations (HCC) Expected: 11/03/2023, Expires: 01/03/2024 [facility] Work Phone: Comment on above: Expected: 11/03/2023, Expires: Start: 09-21-2023 Hemoglobin A1c measurement HbA1C [facility] Start: 09-21-2023 Hemoglobin A1c/Hemoglobin.total in Blood HbA1C [facility] Start: 09-04-2023 Behavioral Health Screening Behavioral Health Screening [facility] Start: 07-06-2023 Hemoglobin A1c/Hemoglobin.total in Blood HbA1C [facility] Start: 06-21-2023 End: 09-20-2023 Hemoglobin A1c in Blood HGB A1C Lab Routine Poorly controlled type 2 diabetes mellitus (HCC) Expected: 06/21/2023, Expires: 09/20/2023 [facility] Work Phone: Comment on above: Expected: 06/21/2023, Expires: 4 Start: 05-05-2023 Covid-19 Vaccine () Covid-19 Vaccine () [facility] Start: 05-05-2023 Influenza vaccination [facility] Start: 04-05-2023 End: 06-05-2023 Glutamate decarboxylase 65 Ab [Units/volume] in Serum [facility] Work Phone: Comment on above: Expected: 04/05/2023, Expires: 3 Start: 04-05-2023 End: 06-05-2023 Pancreatic islet cell Ab [Titer] in Serum [facility] Work Phone: Comment on above: Expected: 04/05/2023, Expires: 3 Start: 09-04-2022 DEPRESSION ASSESSMENT DEPRESSION ASSESSMENT [facility] Start: 08-12-2022 [facility] Work Phone: Start: 06-25-2022 [facility] Work Phone: Start: 01-12-2022 COVID-19 VACCINE (2 - Moderna series) COVID-19 VACCINE (2 - Moderna series) [facility] Start: 12-19-2019 PAP TESTING PAP TESTING [facility] Start: 12-19-2019 Screening for malignant neoplasm of cervix [facility] Start: 2017 Pneumococcal vaccination Pneumococcal Vaccine (1 of 2 - PCV) [facility] Start: 2017 Pneumococcal Vaccine: Pediatrics (0 to 5 Years) and At-Risk Patients (6 to 49 Years) (1 of 2 - PCV) Pneumococcal Vaccine: Pediatrics (0 to 5 Years) and At-Risk Patients (6 to 49 Years) (1 of 2 - PCV) [facility] Start: 2016 Annual PCP Team Chronic Disease Visit Annual PCP Team Chronic Disease Visit [facility] Start: 2016 Anxiety Screening Anxiety Screening [facility] Start: 2016 Depression Screening Depression Screening [facility] Start: 2016 HEPATITIS C SCREENING HEPATITIS C SCREENING [facility] Start: 2016 Hepatitis C screening Hepatitis C Screening [facility] Start: 2016 HIV SCREENING HIV SCREENING [facility] Start: 2016 HIV screening HIV Screening [facility] Start: 2014 Meningococcal B Vaccine: Consider Based On Risk (1 of 2 - Patient Seeks Protection) Meningococcal B Vaccine: Consider Based On Risk (1 of 2 - Patient Seeks Protection) [facility] Start: 2014 MENINGOCOCCAL B: Consider based on risk (1 of 2 - Patient Seeks Protection) MENINGOCOCCAL B: Consider based on risk (1 of 2 - Patient Seeks Protection) [facility] Start: 2014 Screening for Chlamydia trachomatis CHLAMYDIA SCREEN [facility] Start: 2013 HIV screening HIV SCREENING DISCUSSION [facility] Start: 2012 PEDS TO ADULT TRANSITION ANNUAL ASSESSMENT PEDS TO ADULT TRANSITION ANNUAL ASSESSMENT [facility] Start: 12-19-2011 Varicella vaccination Varicella Vaccines (1 of 2 - 13+ 2-dose series) [facility] Start: 11-17-2011 HPV VACCINE (2 - 2-dose series) HPV VACCINE (2 - 2-dose series) [facility] Start: 11-17-2011 HPV Vaccines (2 - 2-dose series) HPV Vaccines (2 - 2-dose series) [facility] Start: 11-17-2011 Vaccination for human papillomavirus HPV VACCINE ADOL (2 - 2-dose series) [facility] Start: 05-24-2011 Glaucoma screening Dilated Retinal Exam [facility] Start: 05-24-2011 Hepatitis C antibody, confirmatory test Dilated Retinal Exam [facility] Start: 2010 Depression Monitoring Depression Monitoring [facility] Start: 2010 PEDS TO ADULT TRANSITION INITIAL DISCUSSION PEDS TO ADULT TRANSITION INITIAL DISCUSSION [facility] Start: 2008 3 comp foot exam completed Diabetic Foot Exam [facility] Start: 2008 Diabetic foot examination [facility]abetic Foot Exam [facility] Start: 2004 Pneumococcal vaccination [facility] Start: 1998 Hepatitis C screening HEPATITIS C VIRUS SCREENING [facility] Start: 1998 HIV screening HIV Screening [facility] Start: 1998 Screening for Chlamydia trachomatis GONORRHEA SCREEN [facility] Basic metabolic 2008 panel with ionized calcium - Serum or Plasma [facility] Electrocardiographic procedure [facility] Hemoglobin A1c/Hemoglobin.total in Blood HEMOGLOBIN A1C (POC) Lab Routine Poorly controlled type 2 diabetes mellitus (HCC) Ordered: 08/08/2023 [facility] Work Phone: Comment on above: Ordered: 08/08/2023 MRA Head vessels contrast [facility] Patient Education [facility] Work Phone: Patient referral [facility] Work Phone: Polysomnography [facility] Work Phone: Polysomnography [facility] Polysomnography [facility] Urine microalbumin/creatinine ratio measurement [facility] Work Phone: End: 05-04-2024 Us soft tissue head & neck real time imge docm US THYROID/PARATHYROID Radiology Routine Type II diabetes mellitus with manifestations (HCC) 1 Occurrences starting 04/05/2023 until 05/04/2024 [facility] Work Phone: Comment on above: 1 Occurrences starting 04/05/2023 until 05/04/2024 XR Chest PA and Lateral [facility] Immunizations Immunization Date Immunization Notes Care Provider Robbie [email or web address] 12-08-2021 tetanus toxoid, redu brannon diphtheria toxoid, and acellular pertussis vaccine, adsorbed Dr. Maren Sultana Work Phone: [facility] 02-21-2021 tetanus toxoid, redu brannon diphtheria toxoid, and acellular pertussis vaccine, adsorbed Paige Cioce HAND BINDER CUTTER.[employer] Work Phone: [facility] 08-17-[address] PATRIA PARRA DO [facility] 08-17-2016 meningococcal polysaccharide (groups A, C, Y and W-135) diphtheria toxoid conjugate vaccine (MCV4P) DR PATRIA PARRA DO [facility] 05-19-2011 human papilloma viru s vaccine, quadrivalent Paige Cioce HAND BINDER CUTTER.[employer] Work Phone: [facility] Work Phone: 05-19-[address] PATRIA PARRA DO [facility] 05-19-2011 meningococcal polysaccharide (groups A, C, Y and W-135) diphtheria toxoid conjugate vaccine (MCV4P) DR PATRIA PARRA DO [facility] 05-19-2011 Meningococcal, MCV4, unspecified conjugate formulation(groups A, C, Y and W-135) Paige Cioce HAND BINDER CUTTER.[employer] Work Phone: [facility] 05-19-2011 tetanus toxoid, redu brannon diphtheria toxoid, and acellular pertussis vaccine, adsorbed DR PATRIA PARRA DO [facility] 05-19-2011 HPV, unspecified formulation Mona Collazo DO Work Phone: [facility] 04-25-2003 diphtheria, tetanus toxoids and acellular pertussis vaccine DR PATRIA PARRA DO [facility] 04-25-2003 measles, mumps and rubella virus vaccine Paige Muller APRN.ELECT[employer] Work Phone: [facility] Work Phone: 04-25-2003 measles/mumps/rubell a virus vaccine DR PATRIA PARRA DO [facility] 04-25-2003 poliovirus vaccine, inactivated DR PARTIA PARRA DO [facility] 03-25-2002 diphtheria, tetanus toxoids and acellular pertussis vaccine DR PATRIA PARRA DO [facility] 03-25-2002 haemophilus influenz ae type b vaccine, HbOC conjugate Paige Muller APRN.[employer] Work Phone: [facility] Work Phone: 03-25-2002 haemophilus influenz ae type b vaccine, PRP-T conjugate DR PATRIA PARRA DO [facility] 03-25-2002 poliovirus vaccine, inactivated DR PATRIA PARRA DO [facility] 02-11-2000 diphtheria, tetanus toxoids and acellular pertussis vaccine DR PATRIA PARRA DO [facility] 02-11-2000 haemophilus influenz ae type b vaccine, HbOC conjugate Paige Cioce HAND BINDER CUTTER.[employer] Work Phone: [facility] Work Phone: 02-11-2000 haemophilus influenz ae type b vaccine, PRP-T conjugate DR PATRIA PARRA DO [facility] 02-11-2000 hepatitis B pediatri c vaccine DR PATRIA PARRA DO [facility] 02-11-2000 hepatitis B vaccine, pediatric or pediatric/adolescent dosage Paige Cioce HAND BINDER CUTTER.ELECTRICIAN SUPERVISOR [employer] Work Phone: [facility] Work Phone: 02-11-2000 measles, mumps and rubella virus vaccine Paige Cioce HAND BINDER CUTTER.ELECTRICIAN SUPER[employer]OR [employer] Work Phone: [facility] Work Phone: 02-11-2000 measles/mumps/rubell a virus vaccine DR PATRIA PARRA DO [facility] 10-30-1999 diphtheria, tetanus toxoids and acellular pertussis vaccine DR PATRIA PARRA DO [facility] 10-30-1999 haemophilus influenz ae type b vaccine, HbOC conjugate Paige Cioce HAND BINDER CUTTER.ELECTRICIAN SUPERVISOR [employer] Work Phone: [facility] Work Phone: 10-30-1999 haemophilus influenz ae type b vaccine, PRP-T conjugate DR PATRIA PARRA DO [facility] 10-30-1999 hepatitis B pediatri c vaccine DR PATRIA PARRA DO [facility] 10-30-1999 hepatitis B vaccine, pediatric or pediatric/adolescent dosage Paige Cioce HAND BINDER CUTTER.ELECTRICIAN SUPER[employer]OR [employer] Work Phone: [facility] Work Phone: 10-30-1999 poliovirus vaccine, inactivated DR PATRIA PARRA DO [facility] 02-22-1999 diphtheria, tetanus toxoids and acellular pertussis vaccine DR PATRIA PARRA DO [facility] 02-22-1999 haemophilus influenz ae type b vaccine, HbOC conjugate Paige Cioce HAND BINDER CUTTER.ELECTRICIAN SUPER[employer]OR [employer] Work Phone: [facility] Work Phone: 02-22-1999 haemophilus influenz ae type b vaccine, PRP-T conjugate DR PATRIA PARRA DO [facility] 02-22-1999 hepatitis B pediatri c vaccine DR PATRIA PARRA DO [facility] 02-22-1999 hepatitis B vaccine, pediatric or pediatric/adolescent dosage Paige Cioce HAND BINDER CUTTER.ELECTRICIAN SUPER[employer]OR [employer] Work Phone: [facility] Work Phone: 02-22-1999 poliovirus vaccine, inactivated DR PATRIA PARRA DO [facility] 1998 hepatitis B pediatri c vaccine DR PATRIA PARRA DO [facility] 2000 hepatitis B vaccine, pediatric or pediatric/adolescent dosage Paige Cioce HAND BINDER CUTTER.ELECTRICIAN SUPERVISOR [employer] Work Phone: [facility] Work Phone: Payers Date Payer Category Payer Medicaid HMO [employer] ODM [id number] 2024 Unknown [employer]D SCHAEFER [id number] 2024-Present [address] [place] [address] [id number] 2024 Self-pay [id number] 2022 Medicaid [id number] 2022 Unknown [id number] 2000 Unknown [id number] 1998 Unknown [id number] 2.840.1.989654.3.579.2.7 1998 Unknown [id number] 1998 Unknown [id number] 2.16840.1.005540.3.579.2.627 1998 Unknown [id number] 2.16.840.1.061091.3.579.2.627 1998 Unknown [id number] [id number]8 Unknown [id number] Unknown [id number] 2.16.840.1.248604.3.579.2.543 Unknown [id number] 2.16.840.1.251806.3.579.2.462 Unknown [id number] 2.16.840.1.288291.3.579.2.462 Unknown [id number] 2.16.840.1.053592.3.579.2.462 Unknown [id number] 2.16.840.1.140961.3.579.2.462 Unknown [id number] 2.16.840.1.598795.3.579.2.462 Unknown [id number] 2.16.840.1.598842.3.579.2.462 Unknown [id number] 2.16.840.1.781160.3.579.2.462 Unknown [id number] 2.16.840.1.957898.3.579.2.462 Unknown [id number] 2.16.840.1.367742.3.579.2.462 Unknown [id number] Social History Date Type Detail Facility Start: 11-17-2021 End: 11-08-2023 Tobacco smoking status DEIS Unknown if ever smoked [facility] Start: 2000 Sex Assigned At Female [facility] Start: 12-21-2020 End: 03-13-2023 Tobacco smoking status Light tobacco smoker (finding) [facility] Sex Assigned At Sex [facility] Tobacco Nicotine Use: Va ping Product in Last 90 Days. Type: Electronic Cigarettes (Vaping). [facility] Start: 11-06-2024 End: 03-18-2025 Tobacco smoking status Smokes tobacco daily (finding) [facility] Start: 04-05-2023 Tobacco smoking status NHIS Never smoked tobacco [facility] History of tobacco use Passive smoker [facility] Start: 04-05-2023 Tobacco use and exposure Smokeless tobacco non-user [facility] Start: 04-05-2023 End: 01-01-2025 Alcohol intake Current non-drinker of alcohol (finding) [facility] Start: 04-05-2023 End: 01-01-2025 History of Social function [facility] Start: 04-05-2023 End: 01-01-2025 Tobacco use panel [facility] National Score (1-100), lower number is lower risk 63 [facility] Start: 04-05-2023 Tobacco Comment grandmother alex jaeger - she is child's guardian [facility] Start: 2000 Sex Assigned At Not on file C [facility] How often to you hav e a drink containing alcohol? Never [facility] Start: 09-07-2024 End: 11-24-2024 Sex Female (finding) [facility] [employer] NEGATED: Highlighted row [facility] Medical Equipment Procedure Code Equipment Code Equipment Origin al Text Equipment Identifier Dates Arthroscopy, knee, with meniscectomy SUT TAPE,T-LOOP [id number] FDA Start: 11-22-2023 Arthroscopy, knee, with meniscectomy Tendon/ligament bone anchor, non-bioabsorbable ()[id number] FDA Start: 11-22-2023 Arthroscopy, knee, with meniscectomy Soft-tissue/mesh anchor, non-bioabsorbable ()[id number] FDA Start: 11-22-2023 Arthroscopy, knee, with meniscectomy Soft-tissue/mesh anchor, non-bioabsorbable ()[id number] J26 FDA Start: 11-22-2023 Arthroscopy, knee, with meniscectomy Soft-tissue/mesh anchor, non-bioabsorbable [id number])[id number] K66 FDA Start: 11-22-2023 Arthroscopy, knee, with meniscectomy Soft-tissue/mesh anchor, non-bioabsorbable [id number] P38 FDA Start: 11-22-2023 Arthroscopy, knee, with meniscectomy Soft-tissue/mesh anchor, non-bioabsorbable [id number] FDA Start: 11-22-2023 Arthroscopy, knee, with meniscectomy Soft-tissue/mesh anchor, non-bioabsorbable [id number])[id number] B43 FDA Start: 11-22-2023 Arthroscopy, knee, with meniscectomy SUT TAPE,T-LOOP [id number] FDA Start: 11-22-2023 Arthroscopy, knee, with meniscectomy SUT TAPE,T-LOOP [id number] FDA Start: 11-22-2023 Arthroscopy, knee, with meniscectomy SUT TAPE,T-LOOP [id number] FDA Start: 11-22-2023 See Instructions , Tests twice daily. Please dispense enough for 3 months with 3 refills, # 1 EA, 3 Refill(s), Pharmacy: [facility] [address] Diabetes, 175.5, cm, 02/08/21 14:56:00 EDT, Height, 136.8, kg, 02/08/21 14:56:00 EDT, Dosing Weight Start: 02-08-2021 See Instructions , qs 1 month supply. check daily. Dx: uncontrolled DM. Adjust to formulary requirements/brand, # 1 EA, 11 Refill(s), Pharmacy: [facility] 180, cm, 02/24/20 14:27:00 EDT, Height, 126.2, kg, 03/18/20 14:08:00 EDT, Dosing We... Start: 03-26-2020 See Instructions , Tests twice daily. Please dispense enough for 3 months with 3 refills, # 1 EA, 3 Refill(s), [facility]: [facility] [address] Diabetes, 175.5, cm, 02/08/21 14:56:00 EDT, Height, 136.8, kg, 02/08/21 14:56:00 EDT, Dosing Weight Start: 02-08-2021 See Instructions , qs 1 month supply. check daily. Dx: uncontrolled DM. Adjust to formulary requirements/brand, # 1 EA, 11 Refill(s), [facility]: [facility] [address] 180, cm, 02/24/20 14:27:00 EDT, Height, 126.2, kg, 03/18/20 14:08:00 EDT, Dosing We... Start: 03-26-2020 See Instructions , Tests twice daily. Please dispense enough for 3 months with 3 refills, # 1 EA, 3 Refill(s), [facility]: [facility] [address] Diabetes, 175.5, cm, 02/08/21 14:56:00 EDT, Height, 136.8, kg, 02/08/21 14:56:00 EDT, Dosing Weight Start: 02-08-2021 See Instructions , qs 1 month supply. check daily. Dx: uncontrolled DM. Adjust to formulary requirements/brand, # 1 EA, 11 Refill(s), [facility]acy: [facility] [address] 180, cm, 02/24/20 14:27:00 EDT, Height, 126.2, kg, 03/18/20 14:08:00 EDT, Dosing We... Start: 03-26-2020 Blood Sugar Diagnostic (Freestyle Test) strip Start: 06-07-2022 Lancets (Freesty le Lancets) 28 gauge misc Start: 06-07-2022 Blood Sugar Diagnostic (Freestyle Test) strip Start: 06-07-2022 Lancets (Freesty le Lancets) 28 gauge misc Start: 06-07-2022 See Instructions , Tests twice daily. Please dispense enough for 3 months with 3 refills, # 1 EA, 3 Refill(s), [facility]acy: [facility] [address] Diabetes, 175.5, cm, 02/08/21 14:56:00 EDT, Height, 136.8, kg, 02/08/21 14:56:00 EDT, Dosing Weight Start: 02-08-2021 See Instructions , qs 1 month supply. check daily. Dx: uncontrolled DM. Adjust to formulary requirements/brand, # 1 EA, 11 Refill(s), Pharmacy: [facility] 180, cm, 02/24/20 14:27:00 EDT, Height, 126.2, kg, 03/18/20 14:08:00 EDT, Dosing We... Start: 03-26-2020 Blood Sugar Diagnostic (Freestyle Test) strip Start: 06-07-2022 Lancets (Freesty le Lancets) 28 gauge misc Start: 06-07-2022 See Instructions , Tests twice daily. Please dispense enough for 3 months with 3 refills, # 1 EA, 3 Refill(s), Pharmacy: [facility] [address] Diabetes, 175.5, cm, 02/08/21 14:56:00 EDT, Height, 136.8, kg, 02/08/21 14:56:00 EDT, Dosing Weight Start: 02-08-2021 See Instructions , qs 1 month supply. check daily. Dx: uncontrolled DM. Adjust to formulary requirements/brand, # 1 EA, 11 Refill(s), Pharmacy: [facility] 180, cm, 02/24/20 14:27:00 EDT, Height, 126.2, kg, 03/18/20 14:08:00 EDT, Dosing We... Start: 03-26-2020 See Instructions , Tests twice daily. Please dispense enough for 3 months with 3 refills, # 1 EA, 3 Refill(s), Pharmacy: [facility] [address] Diabetes, 175.5, cm, 02/08/21 14:56:00 EDT, Height, 136.8, kg, 02/08/21 14:56:00 EDT, Dosing Weight Start: 02-08-2021 See Instructions , qs 1 month supply. check daily. Dx: uncontrolled DM. Adjust to formulary requirements/brand, # 1 EA, 11 Refill(s), Pharmacy: [facility] [address] 180, cm, 02/24/20 14:27:00 EDT, Height, 126.2, kg, 03/18/20 14:08:00 EDT, Dosing We... Start: 03-26-2020 See Instructions , Tests twice daily. Please dispense enough for 3 months with 3 refills, # 1 EA, 3 Refill(s), [facility]: [facility] [address] Diabetes, 175.5, cm, 02/08/21 14:56:00 EDT, Height, 136.8, kg, 02/08/21 14:56:00 EDT, Dosing Weight Start: 02-08-2021 See Instructions , qs 1 month supply. check daily. Dx: uncontrolled DM. Adjust to formulary requirements/brand, # 1 EA, 11 Refill(s), Pharmacy: [facility] [address] 180, cm, 02/24/20 14:27:00 EDT, Height, 126.2, kg, 03/18/20 14:08:00 EDT, Dosing We... Start: 03-26-2020 Blood Sugar Diagnostic (Freestyle Test) strip Start: 09-23-2022 Lancets (Freesty le Lancets) 28 gauge misc Start: 06-07-2022 Blood Sugar Diagnostic (Freestyle Test) strip Start: 06-07-2022 End: 09-22-2022 Blood Sugar Diagnostic (Freestyle Test) strip Start: 09-22-2022 End: 09-23-2022 [id number], [id number], [id number], [id number], [id number] Start: 03-09-2023 End: 09-23-2024 Comment on above: Use up to 3 daily to calibrate CGM or check blood sugar as needed. INSULIN USE, multiple injections. E11.9 Uses 4 per day with insulin injection E11.9 once daily. Blood Sugar Diagnostic (Freestyle Test) strip Start: 09-23-2022 Lancets (Freesty le Lancets) 28 gauge misc Start: 06-07-2022 Pen Needle, Diabetic (Droplet Pen Needle) 31 gauge x 3/16 needle Start: 05-03-2023 Blood Sugar Diagnostic (Freestyle Test) strip Start: 06-07-2022 End: 09-22-2022 Blood Sugar Diagnostic (Freestyle Test) strip Start: 09-22-2022 End: 09-23-2022 Blood Sugar Diagnostic (Freestyle Test) strip Start: 09-23-2022 Lancets (Freesty le Lancets) 28 gauge misc Start: 06-07-2022 Pen Needle, Diabetic (Droplet Pen Needle) 31 gauge x 3/16 needle Start: 05-03-2023 Blood Sugar Diagnostic (Freestyle Test) strip Start: 06-07-2022 End: 09-22-2022 Blood Sugar Diagnostic (Freestyle Test) strip Start: 09-22-2022 End: 09-23-2022 Blood Sugar Diagnostic (Freestyle Test) strip Start: 09-23-2022 Lancets (Freesty le Lancets) 28 gauge misc Start: 06-07-2022 Pen Needle, Diabetic (Droplet Pen Needle) 31 gauge x 3/16 needle Start: 05-03-2023 Blood Sugar Diagnostic (Freestyle Test) strip Start: 06-07-2022 End: 09-22-2022 Blood Sugar Diagnostic (Freestyle Test) strip Start: 09-22-2022 End: 09-23-2022 See Instructions , Tests twice daily. Please dispense enough for 3 months with 3 refills, # 1 EA, 3 Refill(s), Pharmacy: [facility] [address] Diabetes, 175.5, cm, 02/08/21 14:56:00 EDT, Height, 136.8, kg, 02/08/21 14:56:00 EDT, Dosing Weight Start: 02-08-2021 See Instructions , qs 1 month supply. check daily. Dx: uncontrolled DM. Adjust to formulary requirements/brand, # 1 EA, 11 Refill(s), Pharmacy: [facility] [address] 180, cm, 02/24/20 14:27:00 EDT, Height, 126.2, kg, 03/18/20 14:08:00 EDT, Dosing Weight Start: 03-26-2020 Blood Sugar Diagnostic (Freestyle Test) strip Start: 06-07-2022 End: 09-22-2022 Blood Sugar Diagnostic (Freestyle Test) strip Start: 09-22-2022 End: 09-23-2022 See Instructions , Tests twice daily. Please dispense enough for 3 months with 3 refills, # 1 EA, 3 Refill(s), Pharmacy: [facility] [address] Diabetes, 175.5, cm, 02/08/21 14:56:00 EDT, Height, 136.8, kg, 02/08/21 14:56:00 EDT, Dosing Weight Start: 02-08-2021 See Instructions , qs 1 month supply. check daily. Dx: uncontrolled DM. Adjust to formulary requirements/brand, # 1 EA, 11 Refill(s), Pharmacy: [facility] [address] 180, cm, 02/24/20 14:27:00 EDT, Height, 126.2, kg, 03/18/20 14:08:00 EDT, Dosing Weight Start: 03-26-2020 Blood Sugar Diagnostic (Onetouch Verio Test Strips) strip Start: 11-06-2024 Lancets (Onetouc h Delica Plus Lancet) 30 gauge misc Start: 11-06-2024 Blood Sugar Diagnostic (Freestyle Test) strip Start: 06-07-2022 End: 09-22-2022 Blood Sugar Diagnostic (Freestyle Test) strip Start: 09-22-2022 End: 09-23-2022 Blood Sugar Diagnostic (Onetouch Verio Test Strips) strip Start: 11-06-2024 Lancets (Onetouc h Delica Plus Lancet) 30 gauge misc Start: 11-06-2024 Blood Sugar Diagnostic (Freestyle Test) strip Start: 06-07-2022 End: 09-22-2022 Blood Sugar Diagnostic (Freestyle Test) strip Start: 09-22-2022 End: 09-23-2022 Blood Sugar Diagnostic (Onetouch Verio Test Strips) strip Start: 11-06-2024 Lancets (Onetouc h Delica Plus Lancet) 30 gauge misc Start: 11-06-2024 Blood Sugar Diagnostic (Freestyle Test) strip Start: 06-07-2022 End: 09-22-2022 Blood Sugar Diagnostic (Freestyle Test) strip Start: 09-22-2022 End: 09-23-2022 Blood Sugar Diagnostic (Onetouch Verio Test Strips) strip Start: 11-06-2024 Lancets (Onetouc h Delica Plus Lancet) 30 gauge misc Start: 11-06-2024 Blood Sugar Diagnostic (Freestyle Test) strip Start: 06-07-2022 End: 09-22-2022 Blood Sugar Diagnostic (Freestyle Test) strip Start: 09-22-2022 End: 09-23-2022 Goals Date Patient Goal Desired Activity /State Functional Status Date Assessment Result Facility 05-02-2024 Functional Status Independent [facility] 05-02-2024 Functional Status Standard Safet y ID band on, Allergy Band on, Call device within reach, Bed in low position, Wheels locked, personal items within reach, Bedside Cart Locked, Visitor at bedside [facility] 10-24-2023 Functional Status Independent [facility] 12-09-2022 Functional Status Independent [facility] 12-09-2022 Functional Status Standard Safet y ID band on, Allergy Band on, Call device within reach, Bed in low position, Wheels locked, Visitor at bedside [facility] 12-07-2022 Functional Status ID band on, Call device within reach, Bed in low position, Wheels locked, Bedside Cart Locked, Safety level maintained [facility] 07-10-2022 Functional Status Independent [facility] 07-10-2022 Functional Status Standard Safet y ID band on, Allergy Band on, Call device within reach, Bed in low position, Wheels locked, Upper/Half-Length side-rails up, Phone within reach, personal items within reach, Assistive devices within reach, Toileting device within reach, Bedside Cart Locked, Visitor at bedside, Safety level maintained [facility] 04-04-2022 Functional Status Ambulating in huerta, Ambulating in room, Awake [facility] 02-16-2022 Functional Status Standard Safet y ID band on, Allergy Band on, Call device within reach, Bed in low position, Wheels locked [facility] 12-26-2021 Functional Status [facility] Angel gloria [facility] 02-21-2021 Are you deaf, or do you have serious difficulty hearing No 02/21/2021 5:37 PM EDT Bernadette Stanford RN No [facility] 02-21-2021 Are you blind, or do you have serious difficulty seeing, even when wearing glasses No 02/21/2021 5:37 PM EDT Bernadette Stanford RN No [facility] 02-21-2021 Do you have serious difficulty walking or climbing stairs No 02/21/2021 5:37 PM EDT Bernadette Stanford RN No [facility] 02-21-2021 Do you have difficul ty dressing or bathing No 02/21/2021 5:37 PM EDT Bernadette Stanford RN No [facility] 02-21-2021 Because of a physica l, mental, or emotional condition, do you have difficulty doing errands alone such as visiting a physician's office or shopping No 02/21/2021 5:37 PM EDT Bernadette Stanford RN No [facility] Mental Status Date Assessment Result Facility 01-17-2025 Cognitive function Voice/Name [facility] Work Phone: 10-14-2024 Cognitive function Level Of Cons ciousness Awake;Alert;Appropriate;Fol lows Commands [facility] Work Phone: 05-02-2024 Mental Status Orientation Oriented x 4 [facility] 05-02-2024 Mental Status [facility] 11-22-2023 Cognitive function Voice/Name [facility] Work Phone: 10-24-2023 Mental Status Orientation Oriented x 4 [facility] 10-24-2023 Mental Status [facility] 12-09-2022 Mental Status Orientation Oriented x 4 [facility] 12-09-2022 [facility] Status [facility] 12-07-[facility]22 Mental Status Oriented x 4 [facility] 12-07-2022 Mental Status [facility] 07-10-2022 Mental Status Orientation Oriented x 4 [facility] 07-10-2022 Mental Status [facility] 04-04-2022 Mental Status Oriented x 4 [facility] 02-16-2022 Mental Status Orientation Oriented x 4 [facility] 12-26-2021 Mental Status [facility] 02-21-2021 Because of a physica l, mental, or emotional condition, do you have serious difficulty concentrating, remembering, or making decisions 02/21/2021 5:37 PM EDT Bernadette Stanford RN No [facility] Clinical Notes 02-10-2021 to 03-18-2025 Telephone Encounter - Kendrick Fong - 01/20/2025 5:14 PM EDTTelephone Encounter - Kendrick Fong - 01/20/2025 5:14 PM EDTTelephone Encounter - Arlene Carty - 01/16/2025 4:12 PM EDT Note Date & Type Note Facility 03-18-2025 Discharge summary [facility] 01-20-2025 Telephone encounter Note Images from the original note were not included. Kendrick Red Prior Program Counselor Endocrinology & Metabolism [place] [facility] 01-20-2025 Miscellaneous Notes Images from the original note were not included. Kendrick Red Prior Program Counselor Endocrinology & Metabolism [place] Patient calling to report that she uploaded her [employer] insurance card through [employer] (available for review in 01/16/25 scanned docs). RTE verified plan is active. Patient states that she does not have a separate plan for prescription coverage. She spoke with [email or web address] and they advised her to provide their prior auth ph. [phone] to the ordering practitioner. documented in this encounter [facility] 01-20-2025 Telephone encounter Note Initiated PA for semaglutide (OZEMPIC) 1 mg/dose (4 mg/3 mL) through Covermymeds Questions Completed/attached notes Waiting for determination Kendrick Red Prior Program Counselor Endocrinology & Metabolism [place] [facility] 01-20-2025 Miscellaneous Notes Initiated PA for semaglutide (OZEMPIC) 1 mg/dose (4 mg/3 mL) through Covermymeds Questions Completed/attached notes Waiting for determination Kendrick Red Prior Program Counselor Endocrinology & Metabolism [place] documented in this encounter [facility] 01-17-2025 Radiology Diagnostic study note [facility] Imaging Services [address] [place], [place] [id number] Chest PA and Lateral MR#: [id number] Acct: [id number] Name: SUGEY WEST Rep #: [id number] : 2000 F 24 From: Yolanda Patel MD PCP: Dr. Eliazar Amos MD Status: R EG ER Study:Chest PA and Lateral Date of Exam: 01/17/25 Exam# [id number] Ordering Dr: Faby Morales EXAM: XR Chest, 2 Views CLINICAL INDICATION: COUGH TECHNIQUE: Frontal and lateral views of the chest. COMPARISON: No relevant prior studies available. FINDINGS: LUNGS AND PLEURAL SPACES: Unremarkable. No consolidation. No pneumothorax. HEART: Unremarkable. No cardiomegaly. MEDIASTINUM: Unremarkable. Normal mediastinal contour. BONES/JOINTS: Unremarkable. No acute fracture. RAD/Chest PA and Lateral IMPRESSION: No acute cardiopulmonary process. Reading Location: [facility] CC: Dr. Eliazar Amos MD; ALEJANDRA Fry ~ Public Interviewer: Signed [facility] 01-17-2025 Hospital Discharg e instructions Additional Instructions Thanks for letting us take care of you today. Your chest x-ray showed no signs of pneumonia. I think you have a viral illness causing upper respiratory symptoms. Continue use of your inhaler and I prescribed Tessalon Perles which can help with cough. You can also take dmxg-kch-fmpghja cough medication. Take Tylenol or ibuprofen as needed for fever or pain. Viral illnesses usually last 7 to 10 days. If you have significantly worsening shortness of breath/asthma symptoms please come back to the ER. [facility] Work Phone: 01-16-2025 Telephone encounter Note Patient calling to report that she uploaded her [employer] insurance card through [employer] (available for review in 01/16/25 scanned docs). RTE verified plan is active. Patient states that she does not have a separate plan for prescription coverage. She spoke with [employer] and they advised her to provide their prior auth ph. [phone] to the ordering practitioner. [facility] 01-14-2025 Telephone encounter Note Patient's request for medication is as follows Requested Prescriptions Signed Prescriptions Disp Refills semaglutide (OZEMPIC) 1 mg/dose (4 mg/3 mL) pen 9 mL 3 Sig: Inject 1 mg subcutaneously one time a week. Authorizing Provider: PAIGE MULLER Order entered - please phone pharmacy and notify patient. Paige Muller APRN.ELECTRICIAN SUPERVISOR [employer] [facility] 01-14-2025 Miscellaneous Notes Patient's request for medication is as follows Requested Prescriptions Signed Prescriptions Disp Refills semaglutide (OZEMPIC) 1 mg/dose (4 mg/3 mL) pen 9 mL 3 Sig: Inject 1 mg subcutaneously one time a week. Authorizing Provider: PAIGE MULLER Order entered - please phone pharmacy and notify patient. Paige Muller APRN.ELECTRICIAN SUPERVISOR [employer] Patient called. The MOUNJARO is not covered and would like Ozempic order placed to [facility]. Cynthia Redding LPN Images from the original note were not included. Initiated PA for tirzepatide (MOUNJARO) 5 mg/0.5 mL through Covermymeds Waiting on Questions Questions Completed Waiting for determination Darrellieta R. Prior Program Counselor Endocrinology & Metabolism [place] documented in this encounter [facility] 01-13-2025 Telephone encounter Note Patient called. The MOUNJARO is not covered and would like Ozempic order placed to [facility]. Cynthia Redding LPN [facility] 01-02-2025 Telephone encounter Note Images from the original note were not included. Initiated PA for tirzepatide (MOUNJARO) 5 mg/0.5 mL through Covermymeds Waiting on Questions Questions Completed Waiting for determination Tena R. Prior Program Counselor Endocrinology & Metabolism [place] [facility] 01-01-2025 History of Presen t illness Narrative Images from the original note were not included. OFFICE VISIT PROGRESS NOTE CC Sugey West is a 23 year old who presents today for blood sugar review, DM med dose review, adjust. HPI Diagnosed with pre diabetes age 16 Dx with DM2 2019 Last endocrine OV 01/24/2024 Some elements copied from my note 01/24/2024 which have been updated where appropriate, and all reflect current medical decision making from date of this visit. HPI 12/31/2024 Did not do labs for appt Sts is doing well Sts takes TRULICITY and then has 'low event' Sts CGM falls off her arm Not sticky' enough Weight Sts is not using METFORMIN for awhile Did not change her diet - eating 3 meals a day Did have illness several weeks ago, allergies she believes Losing voice - sore throat, coughing, did not feel well CURRENT DM MEDS TRULICITY 1.5 mg weekly injection METFORMIN 500 2 tab BID Has not been using the followin weeks HUMALOG plus SS#2 (uses ~ 4-6 extra units) - has not needed TOUJEO units-300 inject 40 units daily - has not needed SMBG Freestyle jazmin 3 Type of Monitor: Other Frequency of Monitorin times a day Hypoglycemia: no Diet: Low carbohydrate Exercise: walking and bike riding DM REVIEW OF SYSTEMS Last Eye Exam : 06/2024 - glasses, normal Last Podiatry Exam: due Cardiorespiratory: negative, denies chest pain, pressure Claudication: no Dyslipidemia: No High Blood Pressure: yes, on medication CURRENT LABS LABS ORDERED FOR APPT, PATIENT DID NOT COMPLETE Recent Labs 02/21/21 0643 04/05/23 1530 04/05/23 1532 06/21/23 1230 02/02/24 1139 02/02/24 1151 ALT -- 30 -- -- 23 -- AST -- 21 -- -- 20 -- UCRR -- -- 128.4 -- -- 256.6 UALBR -- -- <12.0 -- -- 213.8 UALBCR -- -- <9 -- -- 83* TSH -- 0.777 -- -- -- -- TPROT 6.6 6.9 -- -- 7.3 -- ALB 3.9 4.1 -- -- 4.5 -- CA 8.9 9.6 -- -- 10.0 -- TBILI 0.2 0.2 -- -- 0.4 -- ALKPHOS 76 72 -- -- 65 -- GLUC 319* 235* -- -- 202* -- BUN 5* 14 -- -- 11 -- CREAT 0.50* 0.60 -- -- 0.64 -- NA 136 139 -- -- 140 -- K 4.3 3.8 -- -- 3.9 -- CHLOR 102 102 -- -- 105 -- CO2 18* 24 -- -- 27 -- ANION 16 13 -- -- 8* -- EGFROTH >60 129 -- -- 126 -- HBA1C -- 10.9* -- 9.1* 6.4* -- Recent Labs 04/05/23 1530 06/21/23 1230 02/02/24 1139 TG 210* -- 94 CHOL 184 -- 189 HDL 36* -- 34* VLDL 42* -- 19 LDL 106* -- 136* TCHDL 5.11* -- 5.56* LDLHDL 2.94* -- 4.00* NONHDL 148* -- 155* HBA1C 10.9* 9.1* 6.4* HBA0 266 -- 137 PAST MEDICAL HISTORY Diagnosis Date Depression Diabetes [...] she is child's guardian Vaping Use Vaping status: current everyday user Substances: Nicotine Substance Use Topics Alcohol use: No Drug use: No Current Outpatient Medications Medication Sig dulaglutide (TRULICITY) 1.5 mg/0.5 mL pen injector Inject 1.5 mg subcutaneously one time a week. Lancets Checks blood sugar 2 times daily Blood-Glucose Meter DISPENSE ONE METER KIT blood sugar diagnostic (BLOOD GLUCOSE TEST) test strip Use with blood glucose test TWO TIMES DAILY Blood-Glucose Sensor (FREESTYLE JAZMIN 3 SENSOR PLUS) osito CHANGE SENSOR EVERY 14 days. USE FOR CONTINUOUS GLUCOSE MONITORING> MULTIPLE INSULIN INJECTIONS. E11.9 cyanocobalamin (VITAMIN B-12) 1,000 mcg tab Take 1 tablet by mouth once daily. cholecalciferol (VITAMIN D-3) 5,000 unit tab Take 1 tablet by mouth once daily. metFORMIN ER (GLUCOPHAGE XR) 500 mg 24 hr tablet Take 2 tabs with breakfast, 2 tabs with dinner galcanezumab-gnlm (EMGALITY SYRINGE) 120 mg/mL syringe Inject subcutaneously once every month. Do not shake. busPIRone (BUSPAR) 7.5 mg tablet 7.5 mg. fluticasone (FLONASE) 50 mcg/actuation nasal spray place 2 sprays into each nostril once daily nystatin-triamcinolone (MYCOLOG II) cream 0.5 gm, Topical, BID, # 30 gram(s), 0 Refill(s), [id number], 177.5, cm, 03/13/23 10:35:00 EDT, Height, 117.5 SUMAtriptan (IMITREX) 50 mg tablet TAKE 1 TABLET BY MOUTH EVERY 2 HOURS NEEDED FOR HEADACHE. MAX DOSE OF 2 TABLETS A DAY cyclobenzaprine (FLEXERIL) 10 mg tablet Take 10 mg by mouth three times daily. prn Insulin [place], Disposable, (BD ULTRAFINE III MINI PEN) 31 gauge x 3/16 Uses 4 per day with insulin injection E11.9 sertraline (ZOLOFT) 25 mg tablet Take [...] hypertension, CHF or palpitations PHYSICAL EXAMINATION: BP 123/85 Pulse 81 Wt (!) 137.4 kg (303 lb) LMP 12/20/2023 (Exact Date) SpO2 97% BMI 42.26 kg/m GENERAL: alert and appropriate, in no distress and well-hydrated, well nourished SKIN: no rash noted HEAD: normocephalic, no abnormality or lesion noted EYES: pupil sizes are equal NECK: no obvious neck swelling or mass ACANTHOSIS: none noted EXTREMITIES: normal NEUROLOGIC: no obvious deficit ASSESSMENT/PLAN (E11.9, Z79.85) Diabetes mellitus treated with injections of non-insulin medication (HCC) (primary encounter diagnosis) Comment: Patient did not do labs since last year, to do on way out, ordered in Oct 2024 CGM DOWNLOADED AND REVIEWED FOR OV RECOMMENDATIONS PER REVIEW FOLLOWS: Patient is compliant with CGM use and is benefiting from sensor use. TRULICITY not effective for control of BLOOD SUGARS, patient is gaining weight, recent CGM shows A1C of 8% + CONSULT TO ENDO CHIEF [facility]OOK Will do labs on way out CONT with metformin Supplement with B12 - 1000 mcg Vitamin D3 - 5000 international unit(s) daily with food Recommended diet: Low carbohydrate and Low saturated [...] consultants regarding her other medical problems. Plan: COMPREHENSIVE METABOLIC PANEL, LIPID PANEL, NONFASTING, ALBUMIN/CREATININE RATIO, URINE, HEMOGLOBIN A1C Paige Muller CNP Images from the original note were not included. documented in this encounter [facility] 01-01-2025 Note HNO ID: [id number] Author: PAIGE MULLER APRN.CNP Service: ? Author Type: Nurse Practitioner Type: Progress Notes Filed: 01/01/2025 09:01 Note Text: OFFICE VISIT PROGRESS NOTE CC Sugey West is a 23 year old who presents today for blood sugar review, DM med dose review, adjust. HPI Diagnosed with pre diabetes age 16 Dx with DM2 2019 Last endocrine OV 01/24/2024 Some elements copied from my note 01/24/2024 which have been updated where appropriate, and all reflect current medical decision making from date of this visit. HPI 12/31/2024 Did not do labs for appt Sts is doing well Sts takes TRULICITY and then has 'low event' Sts CGM falls off her arm Not sticky' enough Weight Sts is not using METFORMIN for awhile Did not change her diet - eating 3 meals a day Did have illness several weeks ago, allergies she believes Losing voice - sore throat, coughing, did not feel well CURRENT DM MEDS TRULICITY 1.5 mg weekly injection METFORMIN 500 2 tab BID Has not been using the followin weeks HUMALOG plus SS#2 (uses ~ 4-6 extra units) - has not needed TOUJEO units-300 inject 40 units daily - has not needed SMBG Freestyle jazmin 3 Type of Monitor: Other Frequency of Monitorin times a day Hypoglycemia: no Diet: Low carbohydrate Exercise: walking and bike riding DM REVIEW OF SYSTEMS Last Eye Exam : 06/2024 - glasses, normal Last Podiatry Exam: due Cardiorespiratory: negative, denies chest pain, pressure Claudication: no Dyslipidemia: No High Blood Pressure: yes, on medication CURRENT LABS LABS ORDERED FOR APPT, PATIENT DID NOT COMPLETE Recent Labs 02/21/21 0643 04/05/23 1530 04/05/23 1532 06/21/23 1230 02/02/24 1139 02/02/24 1151 ALT -- 30 -- -- 23 -- AST -- 21 -- -- 20 -- UCRR -- -- 128.4 -- -- 256.6 UALBR -- -- <12.0 -- -- 213.8 UALBCR -- -- <9 -- -- 83* TSH -- 0.777 -- -- -- -- TPROT 6.6 6.9 -- -- 7.3 -- ALB 3.9 4.1 -- -- 4.5 -- CA 8.9 9.6 -- -- 10.0 -- TBILI 0.2 0.2 -- -- 0.4 -- ALKPHOS 76 72 -- -- 65 -- GLUC 319* 235* -- -- 202* -- BUN 5* 14 -- -- 11 -- CREAT 0.50* 0.60 -- -- 0.64 -- NA 136 139 -- -- 140 -- K 4.3 3.8 -- -- 3.9 -- CHLOR 102 102 -- -- 105 -- CO2 18* 24 -- -- 27 -- ANION 16 13 -- -- 8* -- EGFROTH >60 129 -- -- 126 -- HBA1C -- 10.9* -- 9.1* 6.4* -- Recent Labs 04/05/23 1530 06/21/23 1230 02/02/24 1139 TG 210* -- 94 CHOL 184 -- 189 HDL 36* -- 34* VLDL 42* -- 19 LDL 106* -- 136* TCHDL 5.11* -- 5.56* LDLHDL 2.94* -- 4.00* NONHDL 148* -- 155* HBA1C 10.9* 9.1* 6.4* HBA0 266 -- 137 PAST MEDICAL HISTORY Diagnosis Date Depression Diabetes [...] she is child's guardian Vaping Use Vaping status: current everyday user Substances: Nicotine Substance Use Topics Alcohol use: No Drug use: No Current Outpatient Medications Medication Sig dulaglutide (TRULICITY) 1.5 mg/0.5 mL pen injector Inject 1.5 mg subcutaneously one time a week. Lancets Checks blood sugar 2 times daily Blood-Glucose Meter DISPENSE ONE METER KIT blood sugar diagnostic (BLOOD GLUCOSE TEST) test strip Use with blood glucose test TWO TIMES DAILY Blood-Glucose Sensor (Swipe[employer]Spin JAZMIN 3 SENSOR PLUS) osito CHANGE SENSOR EVERY 14 days. USE FOR CONTINUOUS GLUCOSE MONITORING> MULTIPLE INSULIN INJECTIONS. E11.9 cyanocobalamin (VITAMIN B-12) 1,000 mcg tab Take 1 tablet by mouth once daily. cholecalciferol (VITAMIN D-3) 5,000 unit tab Take 1 tablet by mouth once daily. metFORMIN ER (GLUCOPHAGE XR) 500 mg 24 hr tablet Take 2 tabs with breakfast, 2 tabs with dinner galcanezumab-gnlm (EMGALITY SYRINGE) 120 mg/mL syringe Inject subcutaneously once every month. Do not shake. busPIRone (BUSPAR) 7.5 mg tablet 7.5 mg. fluticasone (FLONASE) 50 mcg/actuation nasal spray place 2 sprays into each nostril once daily nystatin-triamcinolone (MYCOLOG II) cream 0.5 gm, Topical, BID, # 30 gram(s), 0 Refill(s), Pharmacy: [facility] #[id number], 177.5, cm, 03/13/23 10:35:00 EDT, Height, 117.5 SUMAtriptan (IMITREX) 50 mg tablet TA (more content not included)... [facility] 01-01-2025 Note HNO ID: [id number] Author: MÓNICA CASIANO MA Service: ? Author Type: Spinner Tender Type: Progress Notes Filed: 01/01/2025 09:01 Note Text: [facility] 11-07-2024 Telephone encounter Note Left patient message to let her know she was scheduled at the [place] office,and that we are 2 1/2 hours away I said she could reschedule with the [place] office.I asked that she call and confirm appointment or message the office. Madison Carlisle MA [facility] 11-07-2024 Miscellaneous Notes Left patient message to let her know she was scheduled at the [place] office,and that we are 2 1/2 hours away I said she could reschedule with the [place] office.I asked that she call and confirm appointment or message the office. Madison Carlisle MA documented in this encounter [facility] 11-06-2024 Evaluation note Diagnosis Onset Date Resolution Breast hypertrophy acute November 06, 2024 3:05pm Breast ptosis acute November 06, 2024 3:05pm Current every day vaping acute November 06, 2024 3:05pm Severe obesity (BMI >= 40) acute November 06, 2024 3:05pm Chronic back pain chronic November 062024 3:05pm Breast hypertrophy acute November 15, 2024 10:07am Upper respiratory infection acute November 15, 2024 10:07am Essential hypertension chronic [facility] 2024 10:07am Migraine chronic November 15 10:07am Type 2 diabetes mellitus chronic November 15, 2024 10:07am [facility] Work Phone: [phone]) 281-242102-24-2025 Telephone encounter Note* Telephone Encounter - Mónica Casiano MA - 10/28/2024 4:38 PM EST Patient phones to request changing trulicity to mounjaro. Patient reports allergic reactions to trulicity. She has been seen in the ED recently for hypoglycemia,tachycardia, rashes, difficulty breathing. Patient states her insurance required her to trial trulicity prior to getting mounjaro. She needs a freestyle lite glucometer as she lost hers. Mónica Casiano MA [facility]02-24-2025 Miscellaneous Notes* Telephone Encounter - Mónica Casiano MA - 10/28/2024 4:38 PM EST Patient phones to request changing trulicity to mounjaro. Patient reports allergic reactions to trulicity. She has been seen in the ED recently for hypoglycemia,tachycardia, rashes, difficulty breathing. Patient states her insurance required her to trial trulicity prior to getting mounjaro. She needs a freestyle lite glucometer as she lost hers. Mónica Casiano MA [facility] Telephone encounter Note * Telephone Encounter - Joana Silva MA - 10/10/2024 12:57 PM EST Requester: Pharmacy Patients last Endocrinology visit occurred 01/24/2024. Follow-up evaluation has been established Upcoming Endocrinology Appointments - Next 365 Days Visit Type Date Time Department EST FRANNY PATIENT 11/07/2024 1:15 PM [facility] . Requested Prescriptions Pending Prescriptions Disp Refills TRULICITY 3 mg/0.5 mL pen injector [Pharmacy Med Name: TRULICITY 3 MG/0.5 ML PEN] Sig: INJECT 3 MG SUBCUTANEOUSLY ONE TIME PER WEEK Patient needs scheduled appointment No Joana Silva MA [facility]02-06-2025 Miscellaneous Notes* Telephone Encounter - Joana Silva MA - 10/10/2024 12:57 PM EST Requester: Pharmacy Patients last Endocrinology visit occurred 01/24/2024. Follow-up evaluation has been established Upcoming Endocrinology Appointments - Next 365 Days Visit Type Date Time Department EST FRANNY PATIENT 11/07/2024 1:15 PM [facility] . Requested Prescriptions Pending Prescriptions Disp Refills TRULICITY 3 mg/0.5 mL pen injector [Pharmacy Med Name: TRULICITY 3 MG/0.5 ML PEN] Sig: INJECT 3 MG SUBCUTANEOUSLY ONE TIME PER WEEK Patient needs scheduled appointment No Joana Silva MA [facility] Tele[facility] encounter Note * Telephone Encounter - Mónica Casiano MA - 09/24/2024 3:36 PM EST Cover my meds PA mancia [id number] started. Mónica Casiano MA [facility]01-21-2025 Miscellaneous Notes* Telephone Encounter - Mónica Casiano MA - 09/24/2024 3:36 PM EST Cover my meds PA mancia [id number] started. Mónica Casiano MA [facility] Telephone encounter Note * Telephone Encounter - Joana Silva MA - 09/23/2024 2:02 PM EST Requester: Patient Patients last Endocrinology visit occurred 01/24/2024. Follow-up evaluation has been established Upcoming Endocrinology Appointments - Next 365 Days No appointments to display . Requested Prescriptions Pending Prescriptions Disp Refills FREESTYLE LITE STRIPS test strip 300 Strip 3 Sig: Use up to 3 daily to calibrate CGM or check blood sugar as needed. INSULIN USE, multiple injections. E11.9 PSS NOTE: please call and schedule a follow up Patient needs scheduled appointment Yes Joana Silva MA [facility]01-20-2025 Miscellaneous Notes* Telephone Encounter - Joana Silva MA - 09/23/2024 2:02 PM EST Requester: Patient Patients last Endocrinology visit occurred 01/24/2024. Follow-up evaluation has been established Upcoming Endocrinology Appointments - Next 365 Days No appointments to display . Requested Prescriptions Pending Prescriptions Disp Refills FREESTYLE LITE STRIPS test strip 300 Strip 3 Sig: Use up to 3 daily to calibrate CGM or check blood sugar as needed. INSULIN USE, multiple injections. E11.9 PSS NOTE: please call and schedule a follow up Patient needs scheduled appointment Yes Joana Silva MA [facility] Hospital Discharge instructions* Discharge Instructions* Mona Collazo DO - 09/07/2024 10:06 PM EST Take Motrin for symptom management. Finish full course of antibiotics. Follow-up with PCP or returnto the ED if no signs of improvement or if worsening shortness of breath. * Attachments The following attachments cannot be sent through Care Everywhere. * Sore Throat in Adults ([place]) * Ear Infections (Otitis Media) in Adults Discharge Instructions ([place]) documented in this [facility]01-04-2025 Emergency department Note* Mona Collazo DO - 09/07/2024 9:31 PM EST EMERGENCY DEPARTMENT ENCOUNTER Pt Name: Sugey West Birthdate 2000 Date of evaluation: 09/07/2024 ED Provider: Mona Collazo DO CHIEF COMPLAINT Chief Complaint Patient presents with Flu Symptoms Cough, headache, chills x2 days. HISTORY OF PRESENT ILLNESS (Location/Symptom, Timing/Onset, Context/Setting, Quality, Duration, Modifying Factors, Severity) Note limiting factors. I wore appropriate PPE for the entirety of this encounter. HPI 23-year-old presents emergency department today with cough, headache, chills ongoing for last 2 days as well as sore throat and earache bilaterally. Nursing Notes were reviewed. Limitations to history: None Outside historians: None REVIEW OF SYSTEMS Review of Systems Constitutional: Positive for chills and fever. HENT: Positive for congestion and ear pain. Respiratory: Positive for cough. Gastrointestinal: Positive for diarrhea. Pertinent positives and negatives as per HPI. PAST MEDICAL HISTORY No past medical history on file. SURGICAL HISTORY No past surgical history on file. CURRENT MEDICATIONS Previous Medications No medications on file ALLERGIES Penicillins FAMILY HISTORY No family history on file. SOCIAL HISTORY SCREENINGS PHYSICAL EXAM ED Triage Vitals [09/07/24 2141] Temp Heart Rate Resp BP 36.6 C (97.8 F) 87 18 (!) 138/98 SpO2 Temp Source Heart Rate Source Patient Position (!) 92 % Temporal Monitor -- BP Location FiO2 (%) -- -- Physical Exam Vitals and nursing note reviewed. Constitutional: General: She is not in acute distress. Appearance: She is well-developed. HENT: Head: Normocephalic and atraumatic. Ears: Comments: Left TM with erythema Nose: Congestion present. Mouth/Throat: Pharynx: Posterior oropharyngeal erythema present. No oropharyngeal exudate. Eyes: Conjunctiva/sclera: Conjunctivae normal. Cardiovascular: Rate and Rhythm: Normal rate and regular rhythm. Heart sounds: No murmur heard. Pulmonary: Effort: Pulmonary effort is normal. No respiratory distress. Breath sounds: Normal breath sounds. Abdominal: Palpations: Abdomen is soft. Tenderness: There is no abdominal tenderness. Musculoskeletal: General: No swelling. Skin: General: Skin is warm and dry. Neurological: Mental Status: She is alert. Psychiatric: Mood and Affect: Mood normal. DIAGNOSTIC RESULTS Procedures/EKG: EKG was reviewed by myself. Physician EKG interpretation can be found in [facility] RADIOLOGY (Per Emergency Physician): Interpretation per the Radiologist below, if available at the time of this note: No orders to display ED BEDSIDE ULTRASOUND: Performed by ED Physician - none LABS: Labs Reviewed - No data to display All other labs were within normal range or not returned as of this dictation. EMERGENCY DEPARTMENT COURSE and DIFFERENTIAL DIAGNOSIS/MDM: Vitals: Vitals: 09/07/24214009/07/242142 BP: (!) 138/98 Pulse: 87 Resp: 18 Temp: 36.6 C (97.8 F) TempSrc: Temporal SpO2: (!) 92% 95% ED Course as of 09/07/242205 Sat Sep 07, [id number] 23-year-old presents emergency department today with cough, headache, chills ongoing for last 2 days as well as sore throat and earache bilaterally. On exam has erythema of the posterior pharynxno exudates or tonsillar hypertrophy does have left otitis media. Lungs clear to auscultation bilate rally. Will treat with cefuroxime for both pharyngitis as well as left otitis media given allergy to both penicillin and azithromycin. Will send in prescription as well for cough syrup. Told to follow-up with PCP if not improving and to return for any worsening shortness of breath. [BM] ED Course User Index [BM] Mona Collazo, Diagnoses as of 09/07/242205 URI with cough and congestion Left otitis media, unspecified otitis media type Pharyngitis, unspecified etiology Medications cefuroxime (Ceftin) tablet 500 mg (has no administration in time range) REVAL: CRITICAL CARE TIME FINAL IMPRESSION 1. URI with cough and congestion 2. Left otitis media, unspecified otitis media type 3. Pharyngitis, unspecified etiology DISPOSITION Discharge 09/07/2024 10:03:59 PM PATIENT REFERRED TO: [facility] EM[facility] [address] [place] [id number] As needed, If symptoms worsen DISCHARGE MEDICATIONS: New Prescriptions CEFUROXIME (CEFTIN) 500 MG TABLET Take 1 tablet (500 mg) by mouth 2 times daily for 10 days. GUAIFENESIN (ROBITUSSIN) 100 MG/5ML SYRUP Take 10 mL (200 mg) by mouth 3 times daily as needed for cough for up to 10 days. IBUPROFEN 800 MG TABLET Take 1 tablet (800 mg) by mouth 3 times daily as needed for mild pain (1-3)for up to 7 days. (Comment: Please note this report has been produced using speech recognition software and may contain errors related to that system including errors in grammar, punctuation, and spelling, as well as words and phrases that may be inappropriate. If there are any questions or concerns please feel freeto contact the dictating provider for clarification.) Mona Collazo DO (electronically signed) Emergency Medicine Provider Mona Collazo DO 09/07/[address] [facility]01-04-2025 Physician Emergency department Note* Mona Collazo DO - 09/07/2024 9:31 PM EST EMERGENCY DEPARTMENT ENCOUNTER Pt Name: Sugey West Birthdate 2000 Date of evaluation: 09/07/2024 ED Provider: Mona Collazo DO CHIEF COMPLAINT Chief Complaint Patient presents with Flu Symptoms Cough, headache, chills x2 days. HISTORY OF PRESENT ILLNESS (Location/Symptom, Timing/Onset, Context/Setting, Quality, Duration, Modifying Factors, Severity) Note limiting factors. I wore appropriate PPE for the entirety of this encounter. HPI 23-year-old presents emergency department today with cough, headache, chills ongoing for last 2 days as well as sore throat and earache bilaterally. Nursing Notes were reviewed. Limitations to history: None Outside historians: None REVIEW OF SYSTEMS Review of Systems Constitutional: Positive for chills and fever. HENT: Positive for congestion and ear pain. Respiratory: Positive for cough. Gastrointestinal: Positive for diarrhea. Pertinent positives and negatives as per HPI. PAST MEDICAL HISTORY No past medical history on file. SURGICAL HISTORY No past surgical history on file. CURRENT MEDICATIONS Previous Medications No medications on file ALLERGIES Penicillins FAMILY HISTORY No family history on file. SOCIAL HISTORY SCREENINGS PHYSICAL EXAM ED Triage Vitals [09/07/24 2141] Temp Heart Rate Resp BP 36.6 C (97.8 F) 87 18 (!) 138/98 SpO2 Temp Source Heart Rate Source Patient Position (!) 92 % Temporal Monitor -- BP Location FiO2 (%) -- -- Physical Exam Vitals and nursing note reviewed. Constitutional: General: She is not in acute distress. Appearance: She is well-developed. HENT: Head: Normocephalic and atraumatic. Ears: Comments: Left TM with erythema Nose: Congestion present. Mouth/Throat: Pharynx: Posterior oropharyngeal erythema present. No oropharyngeal exudate. Eyes: Conjunctiva/sclera: Conjunctivae normal. Cardiovascular: Rate and Rhythm: Normal rate and regular rhythm. Heart sounds: No murmur heard. Pulmonary: Effort: Pulmonary effort is normal. No respiratory distress. Breath sounds: Normal breath sounds. Abdominal: Palpations: Abdomen is soft. Tenderness: There is no abdominal tenderness. Musculoskeletal: General: No swelling. Skin: General: Skin is warm and dry. Neurological: Mental Status: She is alert. Psychiatric: Mood and Affect: Mood normal. DIAGNOSTIC RESULTS Procedures/EKG: EKG was reviewed by myself. Physician EKG interpretation can be found in [facility] RADIOLOGY (Per Emergency Physician): Interpretation per the Radiologist below, if available at the time of this note: No orders to display ED BEDSIDE ULTRASOUND: Performed by ED Physician - none LABS: Labs Reviewed - No data to display All other labs were within normal range or not returned as of this dictation. EMERGENCY DEPARTMENT COURSE and DIFFERENTIAL DIAGNOSIS/MDM: Vitals: Vitals: 09/07/24 2141 09/07/24 2143 BP: (!) 138/98 Pulse: 87 Resp: 18 Temp: 36.6 C (97.8 F) TempSrc: Temporal SpO2: (!) 92% 95% ED Course as of 09/07/242205 Sat Sep 07, 2024 2202 23-year-old presents emergency department today with cough, headache, chills ongoing for last 2 days as well as sore throat and earache bilaterally. On exam has erythema of the posterior pharynxno exudates or tonsillar hypertrophy does have left otitis media. Lungs clear to auscultation bilate rally. Will treat with cefuroxime for both pharyngitis as well as left otitis media given allergy to both penicillin and azithromycin. Will send in prescription as well for cough syrup. Told to follow-up with PCP if not improving and to return for any worsening shortness of breath. [BM] ED Course User Index [BM] Mona Collazo DO Diagnoses as of 01/04/25 2206 URI with cough and congestion Left otitis media, unspecified otitis media type Pharyngitis, unspecified etiology Medications cefuroxime (Ceftin) tablet 500 mg (has no administration in time range) REVAL: CRITICAL CARE TIME FINAL IMPRESSION 1. URI with cough and congestion 2. Left otitis media, unspecified otitis media type 3. Pharyngitis, unspecified etiology DISPOSITION Discharge 09/07/2024 10:03:59 PM PATIENT REFERRED TO: [facility] EM[facility]PT [address] [place] [id number] As needed, If symptoms worsen DISCHARGE MEDICATIONS: New Prescriptions CEFUROXIME (CEFTIN) 500 MG TABLET Take 1 tablet (500 mg) by mouth 2 times daily for 10 days. GUAIFENESIN (ROBITUSSIN) 100 MG/5ML SYRUP Take 10 mL (200 mg) by mouth 3 times daily as needed for cough for up to 10 days. IBUPROFEN 800 MG TABLET Take 1 tablet (800 mg) by mouth 3 times daily as needed for mild pain (1-3)for up to 7 days. (Comment: Please note this report has been produced using speech recognition software and may contain errors related to that system including errors in grammar, punctuation, and spelling, as well as words and phrases that may be inappropriate. If there are any questions or concerns please feel freeto contact the dictating provider for clarification.) Mona Collazo DO (electronically signed) Emergency Medicine Provider Mona Collazo DO 09/07/24 2634 [facility]11-21-2024 History of Present illness Narrative* Katie Brizuela MD - 07/25/2024 11:20 AM EST [facility] PATIENT NAME: Sugey West DATE OF : 2000 DATE OF VISIT: 07/25/2024 PROVIDER: Katie Brizuela MD HISTORY OF PRESENT ILLNESS: Sugey West is a 23 y.o. female who is presenting today with about 4 days of symptoms starting with sore throat and nasal congestion. Has developed some dry cough with intermittent tightness treatedeffectively with her albuterol inhaler. She does have a history of asthma and does tend to get a little tight whenever she gets a cold. There has been no fevers, chills, complaint of nausea, vomiting or diarrhea. Not taking anything for congestion or cough VITAL SIGNS: Vitals: 07/25/24 1128 BP: (!) 135/106 Pulse: 83 Resp: 18 Temp: 98 degrees F (36.7 degrees C) TempSrc: Temporal SpO2: 96% ALLERGIES: Azithromycin and Penicillins MEDICATIONS: Outpatient Medications Prior to Visit Medication Sig Dispense Refill Dulaglutide 3 MG/0.5ML Solution Auto-injector Inject 3 mg under the skin Once a week. QUEtiapine 25 MG tablet Take 1 tablet by mouth 2 times daily. hydrOXYzine hcl 10 MG tablet Take 1 tablet by mouth 3 times daily as needed for Anxiety. No facility-administered medications prior to visit. PAST MEDICAL HISTORY: No past medical history on file. PAST SURGICAL HISTORY: No past surgical history on file. FAMILY HISTORY: No family history on file. SOCIAL HISTORY: Social History Tobacco Use Smoking status: Not on file Smokeless tobacco: Not on file Substance Use Topics Alcohol use: Not on file ROS Constitutional: No complaint of Fever, chills, or body aches Eyes: No complaint of eye pain or vision changes Head/Ear/Nose/Throat: No complaint of headaches, no earache, moderate runny nose, mild sore throat now resolved Cardiac: No complaint of chest pain or palpitations Respiratory: Dry cough with mild intermittent wheezing helped with albuterol, no significant shortness of breath Gastrointestinal: No complaint of abdominal pain, nausea, vomiting, or diarrhea Urinary: No complaint of dysuria, increased urinary frequency, or urinary urgency Musculoskeletal: No complaint of Joint or muscle pain Skin: No complaint of Rash Neurologic: No complaint of numbness/tingling, dizziness, or muscle weakness PHYSICAL EXAM Primary Assessment: Airway patent. Respirations unlabored, Normal respiratory effort Constitutional: Vital signs reviewed. Well appearing. No distress Psychiatric: Mental status appropriate. Normal affect Skin: Warm and dry. No rashes noted HEENT: Normocephalic. Conjunctiva without erythema or photophobia or discharge. Normal TMs. Mild nasal drainage. Mucous membranes moist. Posterior pharynx clear. Sinuses without tenderness to palpation. No submandibular lymphadenopathy or tenderness. Thorax/ Respiratory: Respiratory effort non-labored. Clear to auscultation bilaterally without wheezing or rhonchi. Heart: Regular rate and rhythm without murmurs. Musculoskeletal: Neck supple. All joints grossly normal. Neurologic: Alert and Oriented x 3, CN II-XII grossly intact and nonfocal, gait w/o abnl and unassisted, sensation and strength in major muscle groups intact and symmetric LAB RESULTS: No results found for this or any previous visit (from the past 2 hour(s)). ASSESSMENT & PLAN: Sugey was seen today for nasal congestion, sore throat and cough. Diagnoses and all orders for this visit: Acute upper respiratory infection Other orders - dgsbyzsfjyuetaj-yvjopeakzetmeyf-rgqikwjlanstnpzx 30-2-10 MG/5ML Syrup; Take 5- 10 mL by mouth every 6 hours as needed for Cold Symptoms, Cough or Congestion for up to 10 days. Patient Instructions Thank you for allowing us to care for you! We would love to have you complete your post visit survey and give us an excellent rating. Please let us know now if there is any way we can better serve you in the future. Symptoms are consistent with a viral upper respiratory infection that will have to run its course. This usually takes about 7-10 days with a peak worse day around day 6. However symptoms can persist for several weeks. Drink plenty of extra fluids and get extra rest. Continue your breathing treatments with albuterol as needed. Take the cough/congestion medicine as directed. Cepacol lozenges are helpful for throat pain. I recommend taking the following supplements when starting a viral upper respiratory illness: (Doctor's Best brand is excellent) 1. Chelated Zinc 75 mg daily for 5 days (Three 22mg tabs) 2. Vitamin-C 1000 mg twice a day until symptoms resolve 3. Chelated Magnesium 100 mg twice a day until symptoms resolve 4. Vitamin-D3 2000 iu (50 mcg) twice a day until symptoms resolve Tylenol every 6 hours as needed for fevers or pain. Return for a recheck if there develops worsening shortness of breath, rattling or wheezing with breathing, or sustained fevers over 102. Go directly to the ER if rapidly worsening symptoms with difficulty breathing. You must understand that you've received Urgent Care treatment only and that you may be released before all of your medical problems are known or fully treated. If your condition worsens we recommendthat you either return for a recheck, receive another evaluation at the emergency room immediately,or contact your primary care provider to discuss your concerns. You, the patient, will arrange for follow up care as instructed. If symptoms significantly or rapidly worsen in any way, please make a visit to the ER. [facility] Phone: [phone]) 707-586311-21-2024 Instructions* Patient Instructions* Katie Brizuela MD - 07/25/2024 11:20 AM EST Thank you for allowing us to care for you! We would love to have you complete your post visit survey and give us an excellent rating. Please let us know now if there is any way we can better serve you in the future. Symptoms are consistent with a viral upper respiratory infection that will have to run its course. This usually takes about 7-10 days with a peak worse day around day 6. However symptoms can persist for several weeks. Drink plenty of extra fluids and get extra rest. Continue your breathing treatments with albuterol as needed. Take the cough/congestion medicine as directed. Cepacol lozenges are helpful for throat pain. I recommend taking the following supplements when starting a viral upper respiratory illness: (Doctor's Best brand is excellent) 1. Chelated Zinc 75 mg daily for 5 days (Three 22mg tabs) 2. Vitamin-C 1000 mg twice a day until symptoms resolve 3. Chelated Magnesium 100 mg twice a day until symptoms resolve 4. Vitamin-D3 2000 iu (50 mcg) twice a day until symptoms resolve Tylenol every 6 hours as needed for fevers or pain. Return for a recheck if there develops worsening shortness of breath, rattling or wheezing with breathing, or sustained fevers over 102. Go directly to the ER if rapidly worsening symptoms with difficulty breathing. You must understand that you've received Urgent Care treatment only and that you may be released before all of your medical problems are known or fully treated. If your condition worsens we recommendthat you either return for a recheck, receive another evaluation at the emergency room immediately,or contact your primary care provider to discuss your concerns. You, the patient, will arrange for follow up care as instructed. If symptoms significantly or rapidly worsen in any way, please make a visit to the ER. [facility] Work Phone: [phone] Telephone encounter Note* Telephone Encounter - Mónica Casiano MA - 06/26/2024 3:15 PM EDT Phoned patient regarding request for Trulicity. Previous notes in chart reports patient was seen inED for symptoms caused by trulicity 4.5 mg. Patient states she was told the symptoms were due to the higher dosage by the ED physician. Patient is requesting 3mg Trulicity to updated pharmacy on file. Mónica Casiano MA [facility]10-23-2024 Miscellaneous Notes* Telephone Encounter - Mónica Casiano MA - 06/26/2024 3:15 PM EDT Phoned patient regarding request for Trulicity. Previous notes in chart reports patient was seen inED for symptoms caused by trulicity 4.5 mg. Patient states she was told the symptoms were due to the higher dosage by the ED physician. Patient is requesting 3mg Trulicity to updated pharmacy on file. Mónica Casiano MA * Telephone Encounter - Paige Muller APRN.CNP - 06/26/2024 2:19 PM EDT Message states patient has moved. Which pharmacy does the TRULICITY go now? * Telephone Encounter - Yessica Clemons MA - 06/26/2024 1:21 PM EDT Prescription Refill Information The patient has been identified by name and date of : Yes Caregiver verified no other encounters exist for this prescription request: Yes Caregiver confirmed with patient/requestor that no other refills are due, in the near future, with this provider at this time: No The last office visit in the department: 01/24/24 Does the patient have a future office visit with this provider/department: No Requested Prescriptions No prescriptions requested or ordered in this encounter Yessica Clemons MA June 26, 2024 1:24 PM Patient calling and states she has moved and is able to get the Trulicity in 3 mg. She is asking ifan prescription can be sent for the lower dose since she is unable to take the 4.5 mg? [facility] Telephone encounter Note * Telephone Encounter - Paige Muller APRN.CNP - 06/26/2024 2:19 PM EDT Message states patient has moved. Which pharmacy does the TRULICITY go now? [facility]10-23-2024 Telephone encounter Note* Telephone Encounter - Yessica Clemons MA - 06/26/2024 1:21 PM EDT Prescription Refill Information The patient has been identified by name and date of : Yes Caregiver verified no other encounters exist for this prescription request: Yes Caregiver confirmed with patient/requestor that no other refills are due, in the near future, with this provider at this time: No The last office visit in the department: 01/24/24 Does the patient have a future office visit with this provider/department: No Requested Prescriptions No prescriptions requested or ordered in this encounter Yessica Clemons MA June 26, 2024 1:24 PM Patient calling and states she has moved and is able to get the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 safe to use certain medications at the same time. Some drugs can affect your blood levels of other drugs you take, which may increase side effects or make the medications less effective. Tell your doctor about all your current medicines. Many drugs can affect prednisone, especially: bupropion; cyclosporine; digoxin; ketoconazole; an antibiotic; control pills or hormone replacement therapy; a diuretic or 'water pill'; insulin or oral diabetes medicine; a blood thinner--warfarin, Coumadin, Jantoven; or NSAIDs (nonsteroidal anti-inflammatory drugs)--aspirin, ibuprofen (Advil, Motrin), naproxen (Aleve), celecoxib, diclofenac, indomethacin, meloxicam, and others. This list is not complete and many other drugs may affect prednisone. This includes prescription and njkv-isg-lsemtmo medicines, vitamins, and herbal products. Not all possible drug interactions are listed here. Where can I get more information? Your pharmacist can provide more information about prednisone. Remember, keep this and all other medicines out of the reach of children, never share your medicines with others, and use this medication only for the indication prescribed. Every effort has been made to ensure that the information provided by [employer]. [employer]') is accurate, up-to-date, and complete, but no guarantee is made to that effect. Drug information contained herein may be time sensitive. [employer] information has been compiled for use by healthcare practitioners and consumers in the [place] and therefore [employer] does not warrant that uses outside of the [place] are appropriate, unless specifically indicated otherwise. [employer] drug information does not endorse drugs, diagnose patients or recommend therapy. [employer] drug information isan informational resource designed to assist licensed healthcare practitioners in caring for their p atients and/or to serve consumers viewing this service as a supplement to, and not a substitute for, the expertise, skill, knowledge and judgment of healthcare practitioners. The absence of a warningfor a given drug or drug combination in no way should be construed to indicate that the drug or drug combination is safe, effective or appropriate for any given patient. [employer] does not assume any responsibility for any aspect of healthcare administered with the aid of information [employer] provides. The information contained herein is not intended to cover all possible uses, directions, precautions, warnings, drug interactions, allergic reactions, or adverse effects. If you have questions about the drugs you are taking, check with your doctor, nurse or pharmacist. Copyright 9691-4811 [employer]. Version: 10.. Revision Date: 11/29/2018. diphenhydramine (DYE fen SONU mg) Allergy (Diphenhydramine HCl), Allergy Relief (Diphenhydramine HCl), Banophen, Benadryl, Benadryl Allergy, Benadryl Children's Allergy, Benadryl Children's Allergy Fastmelt, Benadryl Children's Dye Free, Benadryl DF, Benadryl Dye Free Allergy, Benadryl Fastmelt, Benadryl Ultratab, Children's Allergy, Children's Allergy Relief, Childrens Dye-Free Allergy Relief, Compoz Nighttime Sleep Aid, Diphedryl, Diphenhist, Dormin, Fannie-Dryl, K[employer] Kids' Allergy, M-Dryl, Nytol QuickCaps, Scot-Tussin Allergy Relief Formula, Siladryl Allergy, Silphen Cough, Simply Sleep, Sleep-ettes D, Sleepinal, Sominex, Sominex Maximum Strength, Twilite, Un[employer]om Sleep Gels, Un[employer]om Sleepgels Maximum Strength, Unisom Sl eepMelts, Valu-Dryl, Z-Sleep, ZzzQuil What is the most important information I should know about diphenhydramine? Use this medicine exactly as directed. Taking too much diphenhydramine can lead to serious heart problems, seizures, coma, or . Do not use this medicine to make a child sleepy. Diphenhydramine sleep aid medicine is not for use in children younger than 12 years old. What is diphenhydramine? Diphenhydramine is an antihistamine that is used to treat sneezing, runny nose, watery eyes, hives,skin rash, itching, and other cold or allergy symptoms. Diphenhydramine is also used to treat motion sickness, to induce sleep, and to treat certain symptoms of Parkinson's disease. Diphenhydramine sleep aid medicine is not for use in children younger than 12 years old. There are many brands and forms of diphenhydramine available. Not all brands are listed on this leaflet. Diphenhydramine may also be used for purposes not listed in this medication guide. What should I discuss with my healthcare provider before taking diphenhydramine? You should not use diphenhydramine if you are allergic to it. Ask a doctor or pharmacist if this medicine is safe to use if you have ever had: an enlarged prostate or urination problems; asthma, chronic obstructive pulmonary disease (COPD), or other breathing disorder; glaucoma; or a thyroid disorder. Ask a doctor before using this medicine if you are or . Diphenhydramine may slow breast milk production. How should I take diphenhydramine? Use exactly as directed on the label, or as prescribed by your doctor. Diphenhydramine is only for short-term use until your symptoms clear up. Taking too much diphenhydramine can lead to serious heart problems, seizures, coma, or . Always follow directions on the medicine label about giving diphenhydramine to a child. Do not use the medicine only to make a child sleepy. can occur from the misuse of antihistamines in very young children. For motion sickness, take diphenhydramine 30 minutes before you will be in a situation that causes you motion sickness (such as a long car ride, airplane or boat travel, amusement park rides, etc). Continue taking diphenhydramine with meals and at bedtime for the rest of the time you will be in a motion-sickness situation. As a sleep aid, take diphenhydramine within 30 minutes before bedtime. You must chew the chewable tablet before you swallow it. Measure liquid medicine carefully. Use the dosing syringe provided, or use a medicine dose-measuring device (not a kitchen spoon). Remove an orally disintegrating tablet from the package only when you are ready to take the medicine. Place the tablet in your mouth and allow it to dissolve, without chewing. Swallow several times as the tablet dissolves. Call your doctor if the condition you are treating with diphenhydramine does not improve, or if youhave a fever with a headache, cough, or skin rash. Do not use diphenhydramine for longer than 2 weeks to treat sleep problems, or longer than 7 days to treat cold or allergy symptoms. This medicine can affect the results of allergy skin tests. Tell any doctor who treats you that youare using diphenhydramine. Store at room temperature away from moisture and heat. What happens if I miss a dose? Since diphenhydramine is used when needed, you may not be on a dosing schedule. Skip any missed dose if it's almost time for your next dose. Do not use two doses at one time. What happens if I overdose? Seek emergency medical attention or call the Poison Help line at . An overdose of diphenhydramine can be fatal. Overdose symptoms may include vomiting, confusion, severe drowsiness, ringing in your ears, no urination, very dry eyes and mouth, dilated pupils, fast heartbeats, tremor, agitation, hallucinations, or seizure. What should I avoid while taking diphenhydramine? Avoid driving or hazardous activity until you know how this medicine will affect you. Your reactions could be impaired. Drinking alcohol can increase certain side effects of diphenhydramine. Ask a doctor or pharmacist before using any other medicine that may contain diphenhydramine. This includes medicines for sleep, cold/allergy symptoms, or anti-itch medicine used on the skin. Using too much diphenhydramine may lead to a fatal overdose. What are the possible side effects of diphenhydramine? Get emergency medical help if you have signs of an allergic reaction: hives; difficult breathing; swelling of your face, lips, tongue, or throat. Stop using diphenhydramine and call your doctor at once if you have: severe drowsiness; or painful or difficult urination. Side effects such as dry mouth, constipation, and confusion may be more likely in older adults. Common side effects may include: drowsiness; dry eyes, blurred vision; dry mouth, nose, or throat; decreased urination; constipation; feeling restless or excited (especially in children); or day-time drowsiness or 'hangover' feeling after night-time use. This is not a complete list of side effects and others may occur. Call your doctor for medical advice about side effects. You may report side effects to FDA at 9-652-BLW-7383. What other drugs will affect diphenhydramine? Ask a doctor or pharmacist before using diphenhydramine with any other medicines, especially drugs that can cause drowsiness (such as opioid medication, sleep medicine, a muscle relaxer, or medicine for anxiety or seizures). Tell your doctor about all your current medicines and any medicine you start or stop using. This includes prescription and rllj-zyz-bcedgxn medicines, vitamins, and herbal products. Not all possible interactions are listed here. Where can I get more information? Your pharmacist can provide more information about diphenhydramine. Remember, keep this and all other medicines out of the reach of children, never share your medicines with others, and use this medication only for the indication prescribed. Every effort has been made to ensure that the information provided by [employer]. [employer]') is accurate, up-to-date, and complete, but no guarantee is made to that effect. Drug information contained herein may be time sensitive. [employer] information has been compiled for use by healthcare practitioners and consumers in the [place] and therefore [employer] does not warrant that uses outside of the [place] are appropriate, unless specifically indicated otherwise. [employer] drug information does not endorse drugs, diagnose patients or recommend therapy. [employer] drug information isan informational resource designed to assist licensed healthcare practitioners in caring for their p atients and/or to serve consumers viewing this service as a supplement to, and not a substitute for, the expertise, skill, knowledge and judgment of healthcare practitioners. The absence of a warningfor a given drug or drug combination in no way should be construed to indicate that the drug or drug combination is safe, effective or appropriate for any given patient. [facility] does not assume any responsibility for any aspect of healthcare administered with the aid of information [facility] provides. The information contained herein is not intended to cover all possible uses, directions, precautions, warnings, drug interactions, allergic reactions, or adverse effects. If you have questions about the drugs you are taking, check with your doctor, nurse or pharmacist. Copyright [id number] [facility], [facility]. Version: 9.. Revision Date: 04/04/2023. Education Materials General Allergic Reactions An allergic reaction is a set of symptoms caused by an allergen. An allergen is something that causes a person s immune system to react. When a person comes in contact with an allergen, it causes thebody to release chemicals. These include the chemical histamine. Histamine causes swelling and itching. It may affect the entire body. This is called a general allergic reaction. Often symptoms affect only 1 part of the body. This is called a local allergic reaction. You are having an allergic reaction. Almost anything can cause one. Different people are allergic to different things. It is usually something that you ate or swallowed, came into contact with by getting or putting it on your skin or clothes, or something you breathed in the air. This can be very annoying and sometimes scary. Most of us think of allergic reactions when we have a rash or itchy skin. Symptoms can include: Itching of the eyes, nose, and roof of the mouth Runny or stuffy nose Watery eyes Sneezing or coughing A blocked feeling in the ear Red, itchy rash called hives Red and purple spots Rash, redness, welts, blisters Itching, burning, stinging, pain Dry, flaky, cracking, scaly skin Severe symptoms include: Swelling of the face, lips, or other parts of the body Hoarse voice Trouble swallowing, feeling like your throat is closing Trouble breathing, wheezing Nausea, vomiting, diarrhea, stomach cramps Feeling faint or lightheaded, rapid heart rate Sometimes the cause may be obvious. But there are so many things that can cause a reaction that youmay not be able to figure out. The most important things to help find your allergen are: Remembering when it started What you were doing at the time or just before that Any activities you were involved in Any new products or contacts Below are some common causes. But remember that almost anything can cause a reaction. You may not even be aware that you came into contact with one of these things: Dust, mold, pollen Plants (common ones are poison bart and poison oak, but there are many others) Animals Foods such as shrimp, shellfish, peanuts, milk products, gluten, and eggs. Also food colorings, flavorings, and additives. Insect bites or stings such as bees, mosquitos, fleas, ticks Medicines such as penicillin, sulfa medicines, amoxicillin, aspirin, and ibuprofen. But any medicine can cause a reaction. Jewelry such as nickel or gold. This can be new, or something you ve worn for a while, including zippers and buttons. Latex such as in gloves, clothes, toys, balloons, or some tapes. Some people allergic to latex may also have problems with foods like bananas, avocados, kiwi, papaya, or chestnuts. Lotions, perfumes, cosmetics, soaps, shampoos, skincare products, nail products Chemicals or dyes in clothing, linen, vulcanized fiber unit operator, hair dyes, soaps, iodine Many viruses and common colds can cause a rash that is not an allergic reaction. Sometimes it is hard to tell the difference between allergies, sensitivity, or an intolerance to something. This is especially true with food. Many things can cause diarrhea, vomiting, stomach cramps, and skin irritation. Home care The goal of treatment is to help relieve the symptoms and get you feeling better. The rash will usually fade over several days. But it can sometimes last a couple of weeks. Over the next couple of days, there may be times when it is gets a little worse, and then better again. Here are some things to do: If you know what you are allergic to, stay away from it. Future reactions could be worse than this one. Avoid tight clothing and anything that heats up your skin (hot showers or baths, direct sunlight). Heat will make itching worse. An ice pack will relieve local areas of intense itching and redness. To make an ice pack, put ice cubes in a plastic bag that seals at the top. Wrap it in a thin, clean towel. Don t put the ice directly on the skin because it can damage the skin. Oral diphenhydramine is an xpel-gop-hwqpuau antihistamine sold at pharmacy and grocery stores. Unless a prescription antihistamine was given, diphenhydramine may be used to reduce itching if large areas of the skin are involved. It may make you sleepy. So be careful using it in the daytime or when going to school, working, or driving. Note: Don t use diphenhydramine if you have glaucoma or if youare a man with trouble urinating due to an enlarged prostate. There are other antihistamines that won t make you so sleepy. These are good choices for daytime use. Ask your pharmacist for suggestions. Don t use diphenhydramine cream on your skin. It can cause a further reaction in some people. To help prevent an infection, don't scratch the affected area. Scratching may worsen the reaction and damage your skin. It can also lead to an infection. Always check the affected for signs of an infection. Call your healthcare provider and ask what you can use to help decrease the itching. To decrease allergic reactions, try the following: Use heat-steam to clean your home Use high-efficiency particulate (HEPA) vacuums and filters Stay away from food and pet triggers Kill any cockroaches Clean your house often Follow-up care Follow up with your healthcare provider, or as advised. If you had a severe reaction today, or if you have had several mild to medium allergic reactions in the past, ask your provider about allergy testing. This can help you find out what you are allergic to. If your reaction included dizziness, fainting, or trouble breathing or swallowing, ask your provider about carrying auto- injectable epinephrine. Call 911 Call 911 if any of these occur: Trouble breathing or swallowing, wheezing Cool, moist, pale skin Shortness of breath Hoarse voice or trouble speaking Confused Very drowsy or trouble awakening Fainting or loss of consciousness Rapid heart rate Feeling of dizziness or weakness or a sudden drop in blood pressure Feeling of doom Feeling lightheaded Severe nausea or vomiting, or diarrhea Seizure Swelling in the face, eyelids, lips, mouth, throat or tongue Drooling When to seek medical advice Call your healthcare provider right away if any of these occur: Spreading areas of itching, redness or swelling Nausea or stomach cramps or abdominal pain Continuing or recurring symptoms Spreading areas of redness, swelling, or itching Signs of infection at the affected site: oSpreading redness oIncreased pain or swelling oFluid or colored drainage from the site oFever of 100.4 F (38 C) or above lasting for 24 to 48 hours, or as directed by your provider [id number] The [employer]. [address] [place] [address]. All rights reserved. This information is not intended as a substitute for professional medical care. Always follow yourhealthcare professional's instructions. Additional Information VACCINATE! IT SAVES LIVES! Members of the community who have not yet received the COVID-19 vaccine and would like to receive it can visit one of [facility] vaccine clinics. There are many vaccine clinic locations within the [facility]. For locations and available times, please visit [email or web address] It is important to note that some COVID mobile vaccine clinics are held outdoors and may be canceled in rainy or stormy conditions. To learn more about pediatric vaccinations (ages 5-11), we invite you to visit the [facility] webpage. [email or web address] learn more about the COVID-19 vaccine, we invite you to visit the CDC website for a list of frequently asked questions. https://www.cdc.gov/coronavirus/2019-ncov/vaccines/faq.html [facility] Patient Portal Access Instructions: Stay connected with your healthcare team and access your personal medical information anytime with the [facility] Patient Portal. If you would like a full copy of your medical records please contact the [facility] Medical Records Department Monday through Monday between 8a.m. and 4:30p.m. Please follow the directions below to access the portal: 1.Access the email account you provided upon registration to the [facility].2.Look for an invitation email from [facility].3.Open the email and access the invitation link: Accept Invitation to [facility] CS4.Fill in the required núñez to create your account. Sign into [email or web address] with your username and password that you [...] you will allow to register on the [facility] Patient Portal for access to your information. You can also access the [facility] Patient Portal on the [employer]. Simply click on Health Records under [employer] and then click on the [employer] logo. HOW TO SAFELY DISPOSE OF PRESCRIPTION MEDICATIONS Please use one of the following methods to safely dispose of your unused medications. 1.Use a drug disposal kit: the drug disposal pouch allows you to safely discard your old and unuseddrugs. Ask your nurse to give you one when you are discharged.2.Visit a local take-back location: Many local pharmacies and police departments have programs that collect old and unwanted prescriptiondrugs. Call your local pharmacy or go to http://Tervela.Podio/[email or web address] to find one close to you.3.Make use of household items: Use cat litter or old coffee grounds to dispose medications if other options arenot available. Mix your drugs with these household products, seal them in an airtight container andthrow it into the garbage. Call [facility]: [phone] to be sure your drugs can be [...] drowsiness, such as benzodiazepines, also known as benzos,including diazepam and alprazolam, muscle relaxants or sleep aids. Never sell or share prescriptionopioids. This is illegal. Store opioids in a secure place and out of reach of others (including children, family, friends and visitors). The last page(s) of this document has been signed and retained as a CHART COPY Signatures Patient Education Materials Allergic Reaction, Other (General) Medication Leaflets famotidine (oral/injection), prednisone, diphenhydramine My discharge plan and instructions have been reviewed and explained to me and IKATHY NAUTECA C understand my current condition and have read and understand these discharge instructions. I have received a written copy of the plan/instructions. If I have questions, I am aware that I should contact my doctor. 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 Fax confirmation received. Jhoana Anderson RN February 13, 2024 11:01 AM [facility]06-11-2024 Miscellaneous Notes* Telephone Encounter - Jhoana Anderson RN - 02/13/2024 11:00 AM EDT Most recent OV note(s) and lab results faxed to [employer] [place] per Pt request. Fax confirmation received. Jhoana Anderson RN February 13, 2024 11:01 AM * Telephone Encounter - Jhoana Anderson RN - 02/13/2024 10:23 AM EDT Images from the original note were not included. Call received from Pt - name & verified. Pt calls and reports that the pharmacy is unable to get her Trulicity 4.5 mg in stock. Unruly wasDENIED by her insurance. She wonders what she can do to ensure she gets her medication. She's been without for quite a while now, and her sugars are creeping back up to the mid-200's again. Most recent A1c was down to 6.4% on 02/02/2024. 7-day Freestyle Jazmin report pulled into encounter below: Jhoana Anderson RN February 13, 2024 10:29 AM documented in [facility] Telephone encounter Note * Telephone Encounter - Jhoana Anderson RN - 02/13/2024 10:23 AM EDT Images from the original note were not included. Call received from Pt - name & verified. Pt calls and reports that the pharmacy is unable to get her Trulicity 4.5 mg in stock. Unruly wasDENIED by her insurance. She wonders what she can do to ensure she gets her medication. She's been without for quite a while now, and her sugars are creeping back up to the mid-200's again. Most recent A1c was down to 6.4% on 02/02/2024. 7-day Freestyle Jazmin report pulled into encounter below: Jhoana Anderson RN February 13, 2024 10:29 AM [facility]05-23-2024 Note* Addendum Note - Paige Muller APRN.CNP - 01/25/2024 4:31 PM EDTAddended by: PAIGE MULLER on: 01/25/2024 04:31 PM Modules accepted: Orders [facility]05-23-2024 Miscellaneous Notes* Addendum Note - Paige Muller APRN.CNP - 01/25/2024 4:31 PM EDTAddended by: PAIGE MULLER on: 01/25/2024 04:31 PM Modules accepted: Orders * Telephone Encounter - Paige Muller APRN.CNP - 01/25/2024 4:30 PM EDT Patient's request for medication is as follows Requested Prescriptions Signed Prescriptions Disp Refills dulaglutide (TRULICITY) 4.5 mg/0.5 mL pen injector 12 Each 3 Sig: Inject 4.5 mg subcutaneously one time a week. Authorizing Provider: PAIGE MULLER Order entered - please phone pharmacy and notify patient. Paige Muller APRN.ELECTRICIAN SUPERVISOR AIRPLANE * Telephone Encounter - Madison Carlisle MA - 01/25/2024 9:31 AM EDT Denied (MOUNJARO) 7.5 mg/0.5 mL pen injector Inject 7.5 mg subcutaneously one time a week. Coverage is provided when the member meets all the followin. Coverage is provided when the member has a history of at least 120 days of therapy with THREE preferred (medication covered by the Plan) 120 day trials must be Byetta , Victoza Trulicity Farxiga Invokan and Jardiance inadequate clinical response (the inability to reach A1C goal (less than 7%) (a test result that shows a three-month average of blood sugars 4.Documentation includes a patient specific A1C goal if less than 7% and must include current A1C (within the last 6 months). [facility] Policy for Medical Necessity Patient Hospitalized 3 times for DKA, SEE OUTSIDE HOSPITAL RECORDS STARTING 2018. ER VISITS ALSO INCLUDE HYPERGLYCEMIA 7 mo ago Hemoglobin A1C (POCT) 9 mo ago 10.9 High 9.1 Abnormal Madison Carlisle MA documented in this encounterA[facility] Telephone encounter Note * Telephone Encounter - Paige Muller APRN.CNP - 01/25/2024 4:30 PM EDT Patient's request for medication is as follows Requested Prescriptions Signed Prescriptions Disp Refills dulaglutide (TRULICITY) 4.5 mg/0.5 mL pen injector 12 Each 3 Sig: Inject 4.5 mg subcutaneously one time a week. Authorizing Provider: PAIGE MULLER Order entered - please phone pharmacy and notify patient. Paige Muller APRN.CNP [facility]05-23-2024 Telephone encounter Note* Telephone Encounter - Madison Carlisle MA - 01/25/2024 9:31 AM EDT Denied (MOUNJARO) 7.5 mg/0.5 mL pen injector Inject 7.5 mg subcutaneously one time a week. Coverage is provided when the member meets all the followin. Coverage is provided when the member has a history of at least 120 days of therapy with THREE preferred (medication covered by the Plan) 120 day trials must be Byetta , Victoza Trulicity Farxiga Invokan and Jardiance inadequate clinical response (the inability to reach A1C goal (less than 7%) (a test result that shows a three-month average of blood sugars 4.Documentation includes a patient specific A1C goal if less than 7% and must include current A1C (within the last 6 months). [facility] Policy for Medical Necessity Patient Hospitalized 3 times for DKA, SEE OUTSIDE HOSPITAL RECORDS STARTING 2018. ER VISITS ALSO INCLUDE HYPERGLYCEMIA 7 mo ago Hemoglobin A1C (POCT) 9 mo ago 10.9 High 9.1 Abnormal Madison Carlisle MA [facility]05-22-2024 History of Present illness Narrative* Paige Muller, HAND BINDER CUTTER.ELECTRICIAN SUPERVISOR AIRPLANE - 01/24/2024 3:15 PM EDT OFFICE VISIT PROGRESS NOTE MELISSA West is a 22 year old female who presents today for blood sugar review, insulin injections dose adjust. HPI Diagnosed with pre diabetes age 16 Dx with DM2 2019 Last endocrine OV 08/09/2023 Some elements copied from my note 08/09/2023 which have been updated where appropriate, and [...] to start the GLP1 Initially denied for unruly, Trulicity was covered HPI 08/09/2023 Stopped insulin all together because she had low Ss fam did A1C and her last A1C was 6.1% (aug 03) Sts was on TRULICITY and Metformin and having lows Has not seen DM education Has not seen tire beader maker Breakfast: oranges or grits and water Lunch: vegetables and noodles and paki sticks (dumpling) or chicken w cabbage Dinner: potato soup OR ham/mac/cheese and greens OR chicken/rice/brocolli Snacks: none Water for drinks HPI 01/24/2024 Sts eating more protein and less carbs Less rice/ noodles No trulicity for 1-1/2 months - numbers increased Weight - gained SAW DM ED SAW NUTRITION Surgery for meniscus, bed bound for 2 weeks, then limited activity, released january 08 to use brace, which is unlocked. Started back to work this past weekend with restrictions Breakfast: shredded mini wheats OR chex, blackberries or blueberries OJ or water Lunch: black beans, carrots, brocolli, with sausage OR chicken water Dinner: SKIPS or will have turkey sandwich Snack pistachios or almonds or chips doritos Water or OJ for drinks CURRENT DM MEDS TRULICITY 3 mg weekly injection METFORMIN 500 2 tab BID Has not been using the followin weeks HUMALOG plus SS#2 (uses ~ 4-6 extra units) - has not needed TOUJEO units-300 inject 40 units daily - has not needed SMBG Freestyle jazmin 3 Type of Monitor: Other Frequency of Monitorin times a day Breakfast: 150-160 Lunch 150-160 Dinner 160-250 Bedtime: 170 HIGH 280 LOW 68 Hypoglycemia: no Diet: Low carbohydrate Exercise: none secondary DM REVIEW OF SYSTEMS Last Eye Exam : 06/2023 Last Podiatry Exam: due Cardiorespiratory: negative, denies [...] Current Outpatient Medications Medication Sig dulaglutide (TRULICITY) 3 mg/0.5 mL pen injector Inject 3 mg subcutaneously one time a week. Blood-Glucose Sensor (FREESTYLE JAZMIN 3 SENSOR) osito CHANGE SENSOR EVERY 14 days. USE FOR CONTINUOUS GLUCOSE MONITORING> MULTIPLE INSULIN INJECTIONS. E11.9 metFORMIN ER (GLUCOPHAGE XR) 500 mg 24 hr tablet Take 2 tabs with breakfast, 2 tabs with dinner cyanocobalamin (VITAMIN B-12) 1,000 mcg tab Take 1 tablet by mouth once daily. cholecalciferol (VITAMIN D-3) 5,000 unit tab Take 1 tablet by mouth once daily. galcanezumab-gnlm (EMGALITY SYRINGE) 120 mg/mL syringe Inject subcutaneously once every month. Do not shake. busPIRone (BUSPAR) 7.5 mg tablet 7.5 mg. FREESTYLE JAZMIN 2 SENSOR kit fluticasone (FLONASE) 50 mcg/actuation nasal spray place 2 sprays into each nostril once daily nystatin-triamcinolone (MYCOLOG II) cream 0.5 gm, Topical, BID, # 30 gram(s), 0 Refill(s), Pharmacy: [id number], 177.5, cm, 03/13/23 10:35:00 EDT, Height, 117.5 SUMAtriptan (IMITREX) 50 mg tablet TAKE 1 TABLET BY MOUTH EVERY 2 HOURS NEEDED FOR HEADACHE. MAXDOSE OF 2 TABLETS A DAY cyclobenzaprine (FLEXERIL) 10 mg tablet Take 10 mg by mouth three times daily. prn Insulin Bagley, Disposable, (BD ULTRAFINE III MINI PEN) 31 gauge x 3/16 Uses 4 per day with insulin injection E11.9 FREESTYLE LITE STRIPS test strip Use up to 3 daily to calibrate CGM or check blood sugar as needed.INSULIN USE, multiple injections. E11.9 sertraline (ZOLOFT) 25 [...] hypertension, CHF or palpitations PHYSICAL EXAMINATION: BP 108/78 Pulse 86 Temp 36.3 C (97.3 F) (Temporal Artery) Ht 180.3 cm (5' 11) Wt 135 kg (297 lb 9.6 oz) LMP 12/20/2023 (Exact Date) SpO2 96% BMI 41.51 kg/m GENERAL: alert and appropriate, in no distress and well-hydrated, well nourished SKIN: no rash noted HEAD: normocephalic, no abnormality or lesion noted EYES: PERRL NECK: full ROM, no cervical LNs noted ACANTHOSIS: none noted EXTREMITIES: no edema NEUROLOGIC: no obvious deficit ASSESSMENT: (E11.65) Poorly controlled type 2 diabetes mellitus (HCC) (primary encounter diagnosis) No current labs, ordered not completed by patient Had been off her GLP1 for 1-1/2 months due to back order Recommend switch to MOUNJARO for improved efficacy weight loss/blood sugars and portion control. 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 [facility]IEF [facility]OOK when that provider opens her clinic schedules in February Recommended diet: Low carbohydrate and Low saturated [...] regarding her other medical problems. Plan: HEMOGLOBIN A1C, ALBUMIN/CREAT RA, LIPID PANEL, NONF, CMP Paige Muller CNP documented in this encounterA[facility] NoteHNO ID: [id number] Author: PAIGE MULLER APRN.EVA Service: ? Author Type: Nurse Practitioner Type: Progress Notes Filed: 01/25/2024 16:42 Note Text: OFFICE VISIT PROGRESS NOTE CC Sugey West is a 22 year old female who presents today for blood sugar review, insulin injections dose adjust. HPI Diagnosed with pre diabetes age 16 Dx with DM2 2020 Last endocrine OV 08/09/2023 Some elements copied from my note 08/09/2023 which have been updated where appropriate, and [...] to start the GLP1 Initially denied for unruly, Trulicity was covered HPI 08/09/2023 Stopped insulin all together because she had low Ss fam MD did A1C and her last A1C was 6.1% (aug 03) Sts was on TRULICITY and Metformin and having lows Has not seen DM education Has not seen tire beader maker Breakfast: oranges or grits and water Lunch: vegetables and noodles and paki sticks (dumpling) or chicken w cabbage Dinner: potato soup OR ham/mac/cheese and greens OR chicken/rice/brocolli Snacks: none Water for drinks HPI 01/24/2024 Sts eating more protein and less carbs Less rice/ noodles No trulicity for 1-1/2 months - numbers increased Weight - gained SAW DM ED SAW NUTRITION Surgery for meniscus, bed bound for 2 weeks, then limited activity, released january 08 to use brace, which is unlocked. Started back to work this past weekend with restrictions Breakfast: shredded mini wheats OR chex, blackberries or blueberries OJ or water Lunch: black beans, carrots, brocolli, with sausage OR chicken water Dinner: SKIPS or will have turkey sandwich Snack pistachios or almonds or chips doritos Water or OJ for drinks CURRENT DM MEDS TRULICITY 3 mg weekly injection METFORMIN 500 2 tab BID Has not been using the followin weeks HUMALOG 22-22-22 plus SS#2 (uses ~ 4-6 extra units) - has not needed TOUJEO units-300 inject 40 units daily - has not needed SMBG Freestyle jazmin 3 Type of Monitor: Other Frequency of Monitorin times a day Breakfast: 150-160 Lunch 150-160 Dinner 160-250 Bedtime: 170 HIGH 280 LOW 68 Hypoglycemia: no Diet: Low carbohydrate Exercise: none secondary DM REVIEW OF SYSTEMS Last Eye Exam : 06/2023 Last Podiatry Exam: due Cardiorespiratory: negative, denies [...] Tobacco comments: grandmother smokes - she is (more content not included)...[facility]05-14-2024 Telephone encounter Note* Telephone Encounter - Joana Silva MA - 01/16/2024 1:23 PM EDT Patient comment: The pharmacy is having trouble getting this in it s been on back order for a whilenow they suggested I speak to my doctor about switching to a different medication Joana Silva MA Requester: Patient Patients last Endocrinology visit occurred 08/09/2023. Follow-up evaluation has been established Upcoming Endocrinology Appointments - Next 365 Days No appointments to display . Requested Prescriptions Pending Prescriptions Disp Refills dulaglutide (TRULICITY) 3 mg/0.5 mL pen injector 4 Each 5 Sig: Inject 3 mg subcutaneously one time a week. Patient needs scheduled appointment No Joana Silva MA [facility]05-14-2024 Miscellaneous Notes* Telephone Encounter - Joana Silva MA - 01/16/2024 1:23 PM EDT Patient comment: The pharmacy is having trouble getting this in it s been on back order for a whilenow they suggested I speak to my doctor about switching to a different medication Joana Silva MA Requester: Patient Patients last Endocrinology visit occurred 08/09/2023. Follow-up evaluation has been established Upcoming Endocrinology Appointments - Next 365 Days No appointments to display . Requested Prescriptions Pending Prescriptions Disp Refills dulaglutide (TRULICITY) 3 mg/0.5 mL pen injector 4 Each 5 Sig: Inject 3 mg subcutaneously one time a week. Patient needs scheduled appointment No Joana Silva MA [facility] Discharge summary Author Indio Olivares [facility] November 22, 2023 1:08pm Note Date/Time November 22, 2023 1:0 5pm [facility] Medical Records Department [address] [place] [address] Instructions for Home/Discharge Instructions 11/22/23 1304 MR#: [id number] Acct: [id number] Name: SUGEY WEST Rep #:[id number] : 2000 22 From: Indio Olivares MD PCP: Dr. Eliazar Amos MD Status:R [facility] Discharge Instructions Diet Discharge Diet: No restrictions Activity Discharge Activity: Use Crutches May shower in (days): 10 Weight Bearing Status: Toe touch weight bearing Keep extremity elevated above heart level: Operative Extremity Additional Activity Instructions:: use crutches with leg straight Dressing / Incision Call your doctor if your incision/area has: Continuous Slow Oozing, Sudden Increased Bleeding, Increased Pain/ Swelling, Increased Redness, Foul Smelling Discharge and Swelling at the incision site Change Dressing in: leave in place till F/U Cleanse incision/area with: Keep Dressing Clean & Dry Follow Up Care Please Follow Up With: Indio Olivares MD When: 2 days Test Results: Test results from this visit will be discussed in further detail at your follow- up appointment, if applicable. Discharge Plan Admission Attending Provider: Indio Olivares Primary Care Provider: Eliazar Amos Discharge Orders/Prescriptions Prescriptions: New aspirin [Adult Aspirin Regimen] 81 mg tablet,delayed release (DR/EC) 81 mg PO BID MDD 2 30 Days Qty: 60 0RF oxycodone-acetaminophen [Percocet] 5-325 mg tablet 1 tab PO Q4H MDD 6 PRN (Reason: pain) 5 Days Qty: 20 0RF No Action albuterol sulfate 2.5 mg /3 mL (0.083 %) solution for nebulization 2.5 mg INHALATION PRN PRN (Reason: Shortness Of Breath Or Wheezing) (DME) blood-glucose meter [FreeStyle System Kit] Kit See Rx Instructions .ROUTE .MEDSUPPLY Qty: 1 0RF Rx Instructions: check blood glucose daily for type 2 DM buspirone 10 mg tablet 10 mg PO TID Qty: 270 1RF sumatriptan succinate 100 mg tablet See Rx Instructions PO .COMPLEX Qty: 9 4RF Rx Instructions: Take 1 tablet PO every 2 hours as needed for headache up to 2 tablets/day amitriptyline 50 mg tablet 50 mg PO QHS Patient Comments: take 1 tablet by mouth at bedtime nystatin-triamcinolone 100,000-0.1 unit/g-% cream 1 applic topical PRN PRN (Reason: SKIN) Patient Comments: apply 1/2 gram topically to affected area twice a day albuterol sulfate [ProAir HFA] 90 mcg/actuation HFA aerosol inhaler 2 puff INHALATION Q6H PRN (Reason: Shortness Of Breath Or Wheezing) Qty: 8.5 1RF cyclobenzaprine 10 mg tablet 10 mg PO BID Qty: 60 1RF ibuprofen 600 mg tablet 600 mg PO Q6H PRN (Reason: pain) triamcinolone acetonide 0.1 % ointment 1 applic topical BID PRN (Reason: rash) Qty: 453.6 0RF sertraline 100 mg tablet 100 mg PO DAILY Qty: 90 1RF ondansetron HCl 4 mg tablet 4 mg PO TID PRN (Reason: nausea and vomiting) Qty: 90 1RF vitamin Y29-xebxa acid 500-400 mcg tablet 1 tab PO DAILY Rx Instructions: administer with a meal metformin 500 mg tablet extended release 24 hr 1,000 mg PO TID Trulicity 1.5 mg/0.5 mL pen injector 3 mg subcut BO amlodipine 5 mg tablet 5 mg PO DAILY Rx Instructions: take 1 tablet by mouth daily fluticasone propionate [Allergy Relief (fluticasone)] 50 mcg/actuation spray,suspension 2 spray INTRANASAL DAILY Qty: 16 2RF Rx Instructions: administer into each nostril (DME) FreeStyle Jazmin 14 Day Sensor Kit See Rx Instructions .Route Qty: 1 3RF Rx Instructions: Check blood glucose daily cholecalciferol (vitamin D3) 50 mcg (2,000 unit) capsule 50 mcg PO DAILY Qty: 90 3RF cetirizine 10 mg tablet 10 mg PO DAILY Qty: 90 1RF Other Ambulatory Orders: 12 Lead EKG (Routine) Timeframe: 20231114 Facility: [facility] - Location: Cardiovascular Services Ordered By: Dr. Fortunato Yap Referrals / Follow Up: Eliazar Amos MD [Primary Care Provider] - Indio Olivares MD [Med Staff - Active Staff] - Disposition Disposition (needs filled in before D/C Order can be placed): Home, Self Care 11/22/23 1308<Electronically signed by Indio Olivares MD>Indio Olivares MD CC: Dr. Eliazar Amos MD ~ Signed [facility] Work Phone: 1(533) 325-262303-20-2024 Procedure [facility] 11-22-2023 History and physical note Author Indio Olivares [facility] November 22, 2023 10:24am Note Date/Time November 22, 2023 10: 24am [facility] Medical Records Department [address] [place] [address] History & Physical Exam 11/22/23 1022 MR#: [id number] Acct: [id number] Name: SUGEY WEST Rep #:[id number] : 2000 22 From: Indio Olivares MD PCP: Dr. Eliazar Amos MD Status:R [facility] Location: [place] [address] HPI - General HPI Narrative * SUGEY WEST, is a 22 F who presents for right knee arthroscopy, anterior cruciate ligament reconstruction quadriceps autograft, medial meniscus repair possible partial meniscectomy. No changes to history and physical exam. Risks alternatives benefits discussed as well as postoperative protocol and n arcotic counseling. Patient advised if meniscus repair then it would be partial weightbearing in full extension for 6 weeks with passive range of motion 0 to 90 degrees. They would like to do the physical therapy in [place]. Consent updated right knee marked. The patient would like to go ahead no further concerns. MR#: [id number] Acct: [id number] Name: SUGEY WEST Rep #: [id number] : 2000 Provider: Dr. Indio Olivares MD Age/Sex: 22/F Location: [facility] Status: Signed Intake Vital Signs 08/03/2314:42 Height 5 ft 11 in Weight: 280 lb BMI 39.0 BP 122/82 H Blood Pressure Location Lt brachial Position Sitting Respiration 16 Pulse 86 Pulse Source Monitor Temp 98.9 F Temp Source Temporal Pulse Oximetry (%) 97 Oxygen Delivery Method room air Intake Visit Reasons: right knee Is patient in pain?: Yes Allergies amoxicillin Allergy (Unknown, Verified 08/21/23 10:49) unknownazithromycin [From Zithromax Z-Clyde] Allergy (Unknown, Verified 08/21/23 10:49) unknownPenicillins Allergy (Unknown, Verified 08/21/23 10:49) unknown Medications albuterol sulfate 2.5 mg/3 mL (0.083 %) solution for nebulization 2.5 mg inhalation Q6H PRN Shortness Of Breath Or Wheezing 10/06/20 [History Confirmed 08/21/23] azelastine 137 mcg (0.1 %) nasal spray aerosol 2 spray intranasal BID #30 mL 05/16/21 [Rx Confirmed 08/21/23] blood-glucose meter (FreeStyle System Kit) #1 ea 06/07/22 [Rx Confirmed 08/21/23] buspirone 10 mg tablet 10 mg PO TID #270 tabs 06/07/22 [Rx Confirmed 08/21/23] lancets 28 gauge (FreeStyle Lancets) #50 ea 06/07/22 [Rx Confirmed 08/21/23] albuterol sulfate 90 mcg/actuation breath activated powder inhaler 2 inh inhalation Q6H PRN shortness of breath #1 ea 06/25/22 [Rx Confirmed 08/21/23] blood sugar diagnostic (FreeStyle Test strips) #100 ea 09/23/22 [Rx Confirmed 08/21/23] cetirizine 10 mg tablet 10 mg PO DAILY #90 tabs 01/09/23 [Rx Confirmed 08/21/23] cholecalciferol (vitamin D3) 50 mcg (2,000 unit) capsule 50 mcg PO DAILY #90 caps 01/09/23 [Rx Confirmed 08/21/23] flash glucose sensor (FreeStyle Jazmin 14 Day Sensor kit) #1 ea 01/09/23 [Rx Confirmed 08/21/23] fluticasone propionate 50 mcg/actuation nasal spray,suspension (Allergy Relief (fluticasone)) 2 spray intranasal DAILY #16 grams 01/09/23 [Rx Confirmed 08/21/23] ondansetron HCl 4 mg tablet 4 mg PO TID PRN nausea and vomiting #90 tabs 05/02/23 [Rx Confirmed 08/21/23] sumatriptan succinate 100 mg tablet See Rx Instructions PO .COMPLEX #9 tabs 05/02/23 [Rx Confirmed 08/21/23] albuterol sulfate 90 mcg/actuation aerosol inhaler (ProAir HFA) 2 puff inhalation Q6H PRN Shortness Of Breath Or Wheezing #8.5 grams 05/03/23 [Rx Confirmed 08/21/23] amitriptyline 50 mg tablet 50 mg PO 05/03/23 [History Confirmed 08/21/23] amlodipine 5 mg tablet 5 mg PO DAILY #90 tabs 05/03/23 [Rx Confirmed 08/21/23] cyclobenzaprine 10 mg tablet 10 mg PO BID #60 tabs 05/03/23 [Rx Confirmed 08/21/23] nystatin-triamcinolone 100,000 unit/g-0.1 % topical cream applic topical 05/03/23 [History Confirmed 08/21/23] pen needle, diabetic 31 gauge x 3/16 (Droplet Pen Needle) #1,200 ea 05/03/23 [History Confirmed 08/21/23] arm brace (MILDRED Elbow Brace) #1 ea 05/11/23 [Rx Confirmed 08/21/23] meloxicam 15 mg tablet 15 mg PO DAILY #60 tabs 05/11/23 [Rx Confirmed 08/21/23] sertraline 100 mg tablet 100 mg PO DAILY #90 tabs 05/11/23 [Rx Confirmed 08/21/23] erenumab-aooe 70 mg/mL subcutaneous auto-injector (Aimovig Autoinjector) 70 mg subcut QMONTH #1 mL 05/31/23 [Rx Confirmed 08/21/23] flash glucose sensor (FreeStyle Jazmin 2 Sensor kit) #1 KIT 07/26/23 [Rx Confirmed 08/21/23] dulaglutide 1.5 mg/0.5 mL subcutaneous pen injector (Trulicity) 1.5 mg (0.5 mL) subcut QWEEK #2 mL 08/03/23 [Rx Confirmed 08/21/23] ibuprofen 600 mg tablet 600 mg PO Q6H PRN 08/03/23 [History Confirmed 08/21/23] metformin 500 mg tablet,extended release 24 hr 1,000 mg (2 x 500 mg) PO QPM #180tabs 08/03/23 [Rx Confirmed 08/21/23] triamcinolone acetonide 0.1 % topical ointment 1 applic topical BID PRN rash #453.6 grams 08/03/23 [Rx Confirmed 08/21/23] PFSH Medical History (Updated 08/03/23 @ 16:[address] Eliazar Amos MD) Anemia Asthma Chronic back pain Chronic bronchitis Cough COVID-19 Cubital tunnel syndrome on left Depression Dermatitis Diabetes Essential hypertension Generalized anxiety disorder Generalized anxiety disorder with panic attacks Hemoptysis High cholesterol History of migraine Hypersomnia Insomnia Left shoulder pain Left ventricular noncompaction Low back pain Low calcium levels Migraine Obesity (BMI 30-39.9) Paresthesia Pneumonia Post concussion syndrome Preoperative evaluation to rule out surgical contraindication Right knee pain Shortness of breath Thyromegaly Thyromegaly Type 2 diabetes mellitus Ulnar neuropathy Vision problems Vitamin deficiency Surgical History History of myringotomy History of nasal cauterization History of tonsillectomy and adenoidectomy Family History Father No problems noted. Grandfather DiabetesGrandmother HypertensionAunt HypertensionOther Anxiety Arthritis Asthma Depression Osteoporosis Respiratory disease Severe allergy Social History Smoking Status: Former smoker Tobacco: How many years used: 4 how long ago did patient quit smokin09/04/2020 second hand exposure: No alcohol intake: current alcohol intake frequency: a few times a month Alcohol type: hard liquor substance use type: does not use caffeine: No what type of physical activity do you participate in: walking frequency: daily seatbelt use: sometimes additional social history: DOES NOT TAKE ASPIRIN DOES TAKE IBUPROFEN NEEDED HPI right knee Details: This documentation accurately reflects the service provided and the decisions made by me, Dr. Indio Olivares MD 08/21/23 1002. Part of today?s visit was documented by [ ], acting as scribe. SUGEY WEST is a 22 year old F here today for FU R knee acl and MM to book surgery after hb a1c check. Pt got sugar under control, still having L hand numbness despite brace. Ortho Exam General General: Yes no acute distress Neurologic: Yes alert and Yes oriented x3 Psychologic: Yes reasonable and appropriate Right Knee Skin/Wound: Yes CDI, No erythema, No ecchymosis and No swelling Knee ROM: Yes ROM-Flexion 0-140 Examination: Yes Med jt line tenderness, No Lat jt line tenderness, No TTP inf pole patella, No Crepitus, No Pain with flexion, No Pain with extention, Yes Bhavya's Test and No Illiotibial band tenderness Quad Atrophy: Yes Stability: NML: Posterior Drawer, NML: Valgus 0, NML: Valgus 30, NML: Varus 0 and NML: Varus 30 and 2+: Anterior Drawer and 2+: Veronika Patella Translation: 2 Apprehension with Lateral Translation: No Patellar Tilt Normal: Yes Patella Grind: No KNEE: 2+ pivot shift, nvi, normal sens and motor to the foot, Left Knee Patella Translation: 2 Supplemental Info [facility] Imaging Services [address] [place] [address] Lower Ext Joint Only (Routine) MR#: [id number] Acct: [id number] Name: SUGEY WEST Rep #: [id number] : 2000 F 22 From: Larry Frost MD PCP: Dr. Eliazar Amos MD Status: REG CLI Study: Lower Ext Joint Only (Routine) Date of Exam: 03/16/23 Exam# [id number] Ordering Dr: oSlis Hassan DO STUDY: MRI RIGHT KNEE REASON FOR EXAM: Female, 22 years old. Medial knee pain. History of fall 7 years ago. TECHNIQUE: Standardized fat and water weighted pulse sequences were obtained in all 3 orthogonal planes. COMPARISON: None. FINDINGS: Complex tear of the posterior horn of the medial meniscus with a vertical component to the tear extending into the anterior horn (coronal series 6 images 7-20). Mild thinning of the articular cartilage of the medial femorotibial compartment (coronal series 6 images 10-16). Normal medial femoral condyle and tibial plateau. Slight thickening of the proximal medial collateral ligament (coronal series 6 image 15). Normal distal semimembranosus, gracilis and semitendinosus tendons. Normal lateral meniscus. Normal hyaline cartilage of the lateral femorotibial compartment. Normal lateral femoral condyle and tibial plateau. Normal proximal tibiofibular articulation. Normal lateral collateral (fibular) ligament. Normal popliteus tendon. Normal biceps femoris tendon. Remote tear of the anteromedial bundle of the ACL with preservation of the posterolateral bundle (sagittal series 3 images 20-24, coronal series 6 images 10-15). Buckling of the PCL compatible with anterior tibial translation (sagittal series 3 image 24). Normal congruent patellofemoral articulation. Normal hyaline cartilage of the patellofemoral compartment. Normal medial and lateral patellar retinaculum. Normal quadriceps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 MAXDOSE OF 2 TABLETS A DAY cyclobenzaprine (FLEXERIL) 10 mg tablet Take 10 mg by mouth three times daily. prn Insulin Bagley, Disposable, (BD ULTRAFINE III MINI PEN) 31 gauge x 3/16 Uses 4 per day with insulin injection E11.9 FREESTYLE LITE STRIPS test strip Use up to 3 daily to calibrate CGM or check blood sugar as needed.INSULIN USE, multiple injections. E11.9 sertraline (ZOLOFT) 25 [...] METFORMIN, cont with B12 RECOMMEND UPGRADE to AngiodroidYLE JAZMIN 3 for accuracy CGM F/U in [...] (POC) Paige Muller CNP documented in this encounterA[facility]10-18-[facility] History of Present illness Narrative* Paige Muller, JELENA.ELECTRICIAN SUPERVIS[employer] - 06/21/2023 12:15 PM EDT OFFICE VISIT PROGRESS NOTE CC Sugey West [...] singh was covered CURRENT DM MEDS HUMALOG 2222-22 plus SS#2 (uses ~ 4-6 extra units) [...] INJECT 22 UNITS SUBCUTANEOUSLY WITH MEALS PLUS SLIDINGSCALE #2 (2 EXTRA UNITS FOR EVERY 50 [...] BID, # 30 gram(s), 0 Refill(s), Pharmacy: [facility] #[id number], 177.5, cm, 03/13/23 10:35:00 EDT, Height, 117.5 SUMAtriptan (IMITREX) 50 mg tablet TAKE 1 TABLET BY MOUTH EVERY 2 HOURS NEEDED FOR HEADACHE. MAXDOSE OF 2 TABLETS A DAY cyclobenzaprine (FLEXERIL) 10 mg tablet Take 10 mg by mouth three times daily. prn Insulin Bagley, Disposable, (BD ULTRAFINE III MINI PEN) 31 gauge x 3/16 Uses 4 per day with insulin injection E11.9 FREESTYLE LITE STRIPS test strip Use up to 3 daily to calibrate CGM or check blood sugar as needed.INSULIN USE, multiple injections. E11.9 sertraline (ZOLOFT) 25 [...] 138/84 Pulse 69 Ht 180.3 cm (5' 11) Wt 123.8 kg (273 lb) LMP 06/16/2023 [...] A1C Paige Muller CNP documented in this encounterAultman [facility]09-26-2023 Miscellaneous Notes* Telephone Encounter - Mónica Casiano - 05/30/2023 1:53 PM EDT Phoned patient relayed message as below. Prior [...] one time a week. Mónica Casiano MA * Telephone Encounter - Paige Muller APRN.CNP - 05/30/2023 10:36 AM EDT Please call the patient. Her thyroid ultrasound [...] patient. Paige Muller APRN.CNP documented in this encounterAultman [facility]09-15-2023 History of Present illness Narrative* Colleen Wood RDMS - 05/19/2023 10:30 AM EDT Radiology Service Progress Note PATIENT NAME: Sugey West DATE OF SERVICE: May 19, 2023 TIME: 10:48 AM PATIENT IDENTITY VERIFICATION COMPLETED USING TWO (2) IDENTIFIERS: Name and Date of confirmedby patient verbally. FALL SCREENING: Has the patient [...] 19, 2023 10:48 AM documented in this encounterAultman [facility]09-13-2023 Instructions* Patient Instructions* Paige Muller APRN.CNP - 05/17/2023 9:40 AM [...] glucose does not improve. documented in this encounterAultman [facility]ville [facility]09-13-2023 History of Present illness Narrative* Mónica Casiano - 05/17/2023 9:26 AM EDT Images from the original note were not included. * Paige Muller APRN.ELECTRICIAN SUPERVIS[employer]PLANE - 05/17/2023 9:15 AM EDT OFFICE VISIT PROGRESS NOTE CC Sugey West [...] INJECT 15 UNITS SUBCUTANEOUSLY WITH MEALS PLUS SLIDINGSCALE #2 (2 EXTRA UNITS FOR EVERY 50 [...] BID, # 30 gram(s), 0 Refill(s), Pharmacy: [facility] #[id number], 177.5, cm, 03/13/23 10:35:00 EDT, Height, 117.5 SUMAtriptan (IMITREX) 50 mg tablet TAKE 1 TABLET BY MOUTH EVERY 2 HOURS NEEDED FOR HEADACHE. MAXDOSE OF 2 TABLETS A DAY cyclobenzaprine (FLEXERIL) 10 mg tablet Take 10 mg by mouth three times daily. prn Insulin Bagley, Disposable, (BD ULTRAFINE III MINI PEN) 31 gauge x 3/16 Uses 4 per day with insulin injection E11.9 FREESTYLE LITE STRIPS test strip Use up to 3 daily to calibrate CGM or check blood sugar as needed.INSULIN USE, multiple injections. E11.9 sertraline (ZOLOFT) 25 [...] F) (Temporal Artery) Ht 180.3 cm (5' 11) Wt 119.9 kg (264 lb 6.4 oz) [...] A1C Paige Muller CNP documented in this encounterAultman [facility]08-06-2023 Miscellaneous Notes* Telephone Encounter - Paige Muller APRN.CNP - 04/09/2023 3:31 PM EDT Please call the patient. Her antibodies are [...] been placed for her. documented in this encounterAultman [facility]08-02-2023 Miscellaneous Notes* Telephone Encounter - Clary Urbano - 04/05/2023 3:11 PM EDT [facility] called and they need clarification on the Humalog quick pen. Please advise documented in this encounterAultman Orrville [facility]08-02-2023 Instructions* Patient Instructions* Paige Muller APRN.ELECTRICIAN SUPER[employer] - 04/05/2023 2:54 PM EDT Sliding Scale [...] glucose does not improve. documented in this encounterAultman [facility]08-02-2023 History of Present illness Narrative* Mónica Casiano - 04/05/2023 2:42 PM EDT Images from the original note were not included. * Paige Muller APRN.CNP - 04/05/2023 2:00 PM EDT Images from the original note were not [...] MEDS Previously on insulin, basal/prandial following initial 2019, taken off Oct 2022 SMBG Type [...] 68 Resp 14 Ht 180.3 cm (5' 11) Wt 122 kg (269 lb) LMP 12/05/2012 BMI 37.52 kg/m General appearance: Well appearing, alert, in no acute distress, well-hydrated, well nourished. andMorbidly obese Skin: Skin color, texture, turgor normal, [...] THYROID/PARATHYROID Paige Muller CNP documented in this encounterAultman [facility]08-02-2023 Nurse Note* Gayle Alonso RN - 04/05/2023 2:34 PM EDT Patient presents with: Diabetes: Type II Neuropathy AMB ROOMING INTAKE FLOWSHEET DATA Risk Screening Do you have concerns about personal safety or safety in the home?: No Pain Pain Location: Other: See Comment (Bilateral feet and hands) Description: Tingling Duration Units: Months Frequency: Continuous Type II DM using Freestyle Jazmin sensors documented in this encounterAultman [facility]rville [facility]07-11-2023 Note. MICRO - Microbiology PROCEDURE: Urine Culture [*1] [...] Locations *1: This test was performed at: [facility], [address] [place] [address], [phone] , [facility] ([place])03-13-2023 Evaluation + Plan note Diagnostic Tests Pending * HPV Screen, DNA Probe 03/13/23 [facility] 04-07-2023 Note ORIGINAL EXAMINATION: THREE XRAY VIEWS OF [...] 12/09/2022 11:57:33 PM Ordering Provider: [facility]04-07-2023 Hospital Discharge instructions Patient Education 12/09/2022 17:07:27 Knee Immobilizer [...] of joint movement. You can open the zubk-bin-xadp brace to dress, bathe, and apply ice or heat packs as directed. Call 911 Call 911 if you have: Shortness of breath Chest pain When to seek medical advice Call your healthcare provider right away if any of these occur: Worsening pain in the knee Weakness, numbness, or tingling in the foot Increased swelling, redness or warmth of the knee joint [id number] [employer]. [address] [place], [place] [id number]. All rights reserved. This information is not intended as a substitute for professional medical care. Always follow yourhealthcare professional's instructions. 12/09/2022 17:07:19 Using Crutches: Up [...] your unaffected leg down. Don t hop. [employer]. [address] [place] [address]. All rights reserved. This information is not intended as a substitute for professional medical care. Always follow yourhealthcare professional's instructions. 12/09/2022 17:07:17 Using Crutches: Sitting, [...] use a chair that swivels or has wheels,back it against something stable before you sit [...] Instead, use entrances designed for disabled people. [employer]. [address] [place] [address]. All rights reserved. This information is not intended as a substitute for professional medical care. Always follow yourhealthcare professional's instructions. 12/09/2022 17:07:16 Fitting Your Crutches [...] ankle, foot, or hip. Using crutches requires goodcoordination, balance, and upper body strength. If you [...] weather, dry crutch tips when coming indoors. [id number] [employer]. [address] [place] [address]. All rights reserved. This information is not intended as a substitute for professional medical care. Always follow yourhealthcare professional's instructions. 12/09/2022 17:07:12 Crutch Walking Crutch Walking Crutch adjustment Make sure the crutches you use are adjusted to fit you. When you stand, there should be room to fit2 to 3 fingers between the top of the crutch and your armpit. Your elbow should be slightly bent when holding the hand director long term care. When your arms hang down, the crutch handle should be at the top of your hip. Crutch walking Place the crutches forward about 1 foot in front of you. The crutches should be a little farther apart than your body. Lean your weight forward as you push down on the hand director long term care. Make sure your weight is on your [...] your feet, push down on the hand director long term care. Balancing with very light pressure on the [...] your feet, push down on the hand director long term care. Keep your weight evenly balanced on the [...] opposite side. Push down on the hand director long term care. Balancing with very light pressure on the weak leg, let your hands support your weight. Raise your strong leg onto the next higher step. Transfer all your weight to your strong leg (still bent) as you move the crutches up (while holdingon to the handrail) to the next step [...] opposite side. Push down on the hand director long term care. Balance your weight evenly on the crutches, [...] the same way when going down stairs. 7762-2033 [employer]. [address] [place] [address]. All rights reserved. This information is not intended as a substitute for professional medical care. Always follow yourhealthcare professional's instructions. 12/09/2022 16:48:18 Knee Sprain Knee [...] When sleeping, place a pillow under the injuredleg. When sitting, support the injured leg so it is above heart level. This is very important during the first 48 hours. Apply an ice pack over the injured area for 15 to 20 minutes every 3 to 6 hours. You should do thisfor the first 24 to 48 hours. You [...] 15 to 20 minutes several times a day,or alternate ice and heat. You can place the ice pack directly over the splint. If you have to weara jgoo-lmb-htxq knee brace, you can open it to apply the ice pack, or heat, directly to the knee. Never put ice directly on the skin. Always wrap the ice in a towel or other type of cloth. You may use kgps-lxg-cwgruss pain medicine to control pain, unless another [...] wet, you can dry it with a social sciences department chair set to cool. If you have a kvhw-ukz-ulbj knee brace, you can remove this to [...] toes become cold, blue, numb, or tingly 5441-3696 [employer]. [address] [place] [address]. All rights reserved. This information is not intended as a substitute for professional medical care. Always follow yourhealthcare professional's instructions. 12/09/2022 16:48:11 AA Melissa PIZARRO (CUSTOM) Result type:XR Knee 3 Views Right Result date:December 09, 2022 16:01 EDT Result status:In Progress Result title:XR KNEE THREE VIEWS RIGHT Performed by:TORREY LARSEN DO on December 09, 2022 15:58 EDT Cosigned by:TORREY LARSEN DO Encounter info:[id number], [facility], Emergency, 12/09/2022 - Contributor system:Psydex * Preliminary Report * [id number] ORIGINAL EXAMINATION: THREE XRAY VIEWS OF THE [...] 08/21/2006 Document Revised: 08/07/2013 Document Reviewed: 08/22/2014 [facility] Patient Information 2015 [employer]. This information is not intended to replace advicegiven to you by your health care provider. Make sure you discuss any questions you have with your health care provider. Follow Up Care 12/09/2022 15:31:02 With:DO GEORGE VELEZ DO Address: [address] [place], [place] [address] [address] [place] [address] When:3-5 days With:Go to emergency room if symptoms worsen Address:Unknown When:2-4 days With:ELIAZAR AMOS MD Address: [address] [place] [address] [phone] When:2-4 days [facility] 04-07-2023 Note Discharge Instructions Thank you for allowing [facility] to assist you with your healthcare needs. The following is importantdischarge information regarding your hospital visit. Diagnosis from Today's Visit Knee pain Knee injury - Minor What to Do Next Instructions from Your Care Team Wear knee immobilizer and use crutches as instructed. Follow-up with Dr. Velez of orthopedic. Takenaproxen as needed for pain May otherwise take [...] VELEZ DO When Within 3-5 days Where: [address] [place] [address] [address] [place] [address] Follow Up with Go to emergency room if symptoms worsen When Within 2-4 days Follow Up with ELIAZAR AMOS MD When Within 2-4 days Where: [facility] [address] [phone] Allergies Zithromax Z-Clyde amoxicillin penicillin Medications Please ask your primary doctor or pharmacist before taking any other medication not listed, including over the counter drugs, herbal medications, vitamins and or supplements as they may interact withyour home medications. 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 What other drugs will affect naproxen? Ask your doctor before using naproxen if you take an antidepressant. Taking certain antidepressantswith an NSAID may cause you to bruise [...] drugs may affect naproxen, including prescription and kmnr-lau-rfeccyv medicines, vitamins, and herbal products. Not all [...] to ensure that the information provided by [employer]. ('[employer]') is accurate, up-to-date, and complete, but no guarantee is made to that effect. Drug information contained herein may be time sensitive. [employer] information has been compiled for use by healthcare practitioners and consumers in the [place] and therefore [employer] does not warrant that uses outside of the [place] are appropriate, unless specifically indicated otherwise. [employer] drug information does not endorse drugs, diagnose patients or recommend therapy. [employer] drug information isan informational resource designed to assist licensed healthcare practitioners in caring for their p atients and/or to serve consumers viewing this service as a supplement to, and not a substitute for, the expertise, skill, knowledge and judgment of healthcare practitioners. The absence of a warningfor a given drug or drug combination in no way should be construed to indicate that the drug or drug combination is safe, effective or appropriate for any given patient. [employer] does not assume any responsibility for any aspect of healthcare administered with the aid of information [employer] provides. The information contained herein is not intended to cover all possible uses, directions, precautions, warnings, drug interactions, allergic reactions, or adverse effects. If you have questions about the drugs you are taking, check with your doctor, nurse or pharmacist. Copyright 8627-7750 [employer]. Version: 20.. Revision Date: 01/11/2022. Education Materials Knee Immobilizer [...] of joint movement. You can open the psfn-cnq-yufv brace to dress, bathe, and apply ice or heat packs as directed. Call 911 Call 911 if you have: Shortness of breath Chest pain When to seek medical advice Call your healthcare provider right away if any of these occur: Worsening pain in the knee Weakness, numbness, or tingling in the foot Increased swelling, redness or warmth of the knee joint 7995-8361 [employer]. [address] [place] [address], [place] [address]. All rights reserved. This information is not intended as a substitute for professional medical care. Always follow yourhealthcare professional's instructions. Using Crutches: Up and Down [...] your unaffected leg down. Don t hop. 6993-0290 [employer]. [address] [place] [address], [place] [address]. All rights reserved. This information is not intended as a substitute for professional medical care. Always follow yourhealthcare professional's instructions. Using Crutches: Sitting, Standing, Through [...] use a chair that swivels or has wheels,back it against something stable before you sit [...] Instead, use entrances designed for disabled people. 2883-9221 [employer]. [address] [place] [address]. All rights reserved. This information is not intended as a substitute for professional medical care. Always follow yourhealthcare professional's instructions. Fitting Your Crutches Proper fitting [...] ankle, foot, or hip. Using crutches requires goodcoordination, balance, and upper body strength. If you [...] weather, dry crutch tips when coming indoors. 8216-4137 [employer]. [address] [place] [address], [place] [address]. All rights reserved. This information is not intended as a substitute for professional medical care. Always follow yourhealthcare professional's instructions. Crutch Walking Crutch adjustment Make sure the crutches you use are adjusted to fit you. When you stand, there should be room to fit2 to 3 fingers between the top of the crutch and your armpit. Your elbow should be slightly bent when holding the hand director long term care. When your arms hang down, the crutch handle should be at the top of your hip. Crutch walking Place the crutches forward about 1 foot in front of you. The crutches should be a little farther apart than your body. Lean your weight forward as you push down on the hand director long term care. Make sure your weight is on your [...] your feet, push down on the hand director long term care. Balancing with very light pressure on the [...] your feet, push down on the hand director long term care. Keep your weight evenly balanced on the [...] opposite side. Push down on the hand director long term care. Balancing with very light pressure on the weak leg, let your hands support your weight. Raise your strong leg onto the next higher step. Transfer all your weight to your strong leg (still bent) as you move the crutches up (while holdingon to the handrail) to the next step [...] opposite side. Push down on the hand director long term care. Balance your weight evenly on the crutches, [...] the same way when going down stairs. 2977-3000 [employer]. [address] [place], [place] [address] [address]. All rights reserved. This information is not intended as a substitute for professional medical care. Always follow yourhealthcare professional's instructions. Knee Sprain A sprain is [...] When sleeping, place a pillow under the injuredleg. When sitting, support the injured leg so it is above heart level. This is very important during the first 48 hours. Apply an ice pack over the injured area for 15 to 20 minutes every 3 to 6 hours. You should do thisfor the first 24 to 48 hours. You [...] 15 to 20 minutes several times a day,or alternate ice and heat. You can place the ice pack directly over the splint. If you have to weara iuga-sry-pkfr knee brace, you can open it to apply the ice pack, or heat, directly to the knee. Never put ice directly on the skin. Always wrap the ice in a towel or other type of cloth. You may use duew-fux-tudxypx pain medicine to control pain, unless another [...] wet, you can dry it with a social sciences department chair set to cool. If you have a yfxb-swj-zhjc knee brace, you can remove this to [...] toes become cold, blue, numb, or tingly 2763-4900 [employer]. [address] [place] [address]. All rights reserved. This information is not intended as a substitute for professional medical care. Always follow yourhealthcare professional's instructions. Result type: XR Knee 3 Views Right Result date: December 09, 2022 16:01 EDT Result status: In Progress Result title: XR KNEE THREE VIEWS RIGHT Performed by: TORREY LARSEN DO on December 09, 2022 15:58 EDT Cosigned by: TORREY LARSEN DO Encounter info: [id number], [facility], Emergency, 12/09/2022 - Contributor system: Psydex * Preliminary Report * [id number] ORIGINAL EXAMINATION: THREE XRAY VIEWS OF THE [...] Document Reviewed: 08/22/2014 [employer] Patient Information 2015 [employer]. This information is not intended to replace advicegiven to you by your health care provider. Make sure you discuss any questions you have with your health care provider. Additional Information VACCINATE! IT SAVES LIVES! Members of the community who have not yet received the COVID-19 vaccine and would like to receive it can visit one of [facility] vaccine clinics. There are many vaccine clinic locations within the [facility]. For locations and available times, please visit [email or web address]/. It is important to note that some COVID mobile vaccine clinics are held outdoors and may be canceled in rainy or stormy conditions. To learn more about pediatric vaccinations (ages 5-11), we invite you to visit the [facility] webpage. https://www.[facility].org/pages/5450-Rahtu-Nkkanyjtdyw-Eylxbrtuok-Ozgan-Yrl stions.htmlTo learn more about the COVID-19 vaccine, we invite you to visit the CDC website for a list of frequently asked questions. https://www.cdc.gov/coronavirus/2019-ncov/vaccines/faq.html [facility] Patient Portal Access Instructions: Stay connected with your healthcare team and access your personal medical information anytime with the [facility] Patient Portal. If you would like a full copy of your medical records please contact the [facility] Medical Records Department Monday through Monday between 8a.m. and 4:30p.m. Please follow the directions below to access the portal: 1.Access the email account you provided upon registration to the hospital.2.Look for an invitation email from [facility].3.Open the email and access the invitation link: Accept Invitation to [facility]4.Fill in the required núñez to create your account. Sign into [email or web address] Crowd with your username and password that you [...] you will allow to register on the [facility] [employer] Patient Portal for access to your information. You can also access the [facility] Patient Portal on the [employer]. Simply click on Health Records under [employer] and then click on the [employer] logo. HOW TO SAFELY DISPOSE OF PRESCRIPTION MEDICATIONS Please use one of the following methods to safely dispose of your unused medications. 1.Use a drug disposal kit: the drug disposal pouch allows you to safely discard your old and unuseddrugs. Ask your nurse to give you one when you are discharged.2.Visit a local take-back location: Many local pharmacies and police departments have programs that collect old and unwanted prescriptiondrugs. Call your local pharmacy or go to http://Tervela.Podio/5H9Ce4b to find one close to you.3.Make use of household items: Use cat litter or old coffee grounds to dispose medications if other options arenot available. Mix your drugs with these household products, seal them in an airtight container andthrow it into the garbage. Call [facility] [place] [facility]: [phone] to be sure your drugs can be [...] drowsiness, such as benzodiazepines, also known as benzos,including diazepam and alprazolam, muscle relaxants or sleep aids. Never sell or share prescriptionopioids. This is illegal. Store opioids in a [...] aware that I should contact my doctor. Patient/Pharmacology Associate Signature: Date/Time: Relationship to Patient: Witness Name/Signature: Date/Time: [facility]04-07-2023 Note ORIGINAL EXAMINATION: THREE XRAY VIEWS OF [...] Sign Date: 12/09/2022 11:57:33 PM Ordering Provider: [facility]04-05-2023 Hospital Discharge instructions Patient Education 12/07/2022 14:40:13 DYSPNEA Shortness [...] before starting to exercise, especially if you haveother medical problems. Cut down on the amount of caffeine and stimulants you have. Follow-up care Follow up with your health care provider. If a culture was done, you will be told if your treatment needs to be changed. You can call in 2 to3 days, or as directed, for the results. [...] Cough with dark-colored or bloody sputum (mucus) 7958-3165 [employer]. [address] [place] [address]. All rights reserved. This information is not intended as a substitute for professional medical care. Always follow yourhealthcare professional's instructions. 12/07/2022 14:40:10 Understanding Dysphagia Understanding [...] throat as you eat or drink and swallow.They then pass down the esophagus (a muscular tube) into the stomach. To keep foods or liquids moving, the esophagus muscles tighten and relax in wavelive motions. Causes of dysphagia With dysphagia, foods or liquids do not easily pass down the esophagus. Dysphagia may happen if theesophagus mayberry thicken, causing a narrowing (stricture) of [...] you swallow Have fatigue and weight loss 0329-9549 [employer]. [address] [place] [address], [place] [address]. All rights reserved. This information is not intended as a substitute for professional medical care. Always follow yourhealthcare professional's instructions. Follow Up Care 12/07/2022 12:11:20 With:ELIAZAR AMOS MD Address: [address] [place] [phone] When:2-4 days [facility] 04-05-2023 Emergency department Discharge summary Discharge Instructions Thank you for allowing [facility] to assist you with your healthcare needs. The following is importantdischarge information regarding your hospital visit. Diagnosis from [...] AMOS MD When Within 2-4 days Where: [address] [phone] Allergies Zithromax Z-Clyde amoxicillin penicillin Medications Please ask your primary doctor or pharmacist before taking any other medication not listed, including over the counter drugs, herbal medications, vitamins and or supplements as they may interact withyour home medications. 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 Cut down on the amount of caffeine and stimulants you have. Follow-up care Follow up with your health care provider. If a culture was done, you will be told if your treatment needs to be changed. You can call in 2 to3 days, or as directed, for the results. [...] Cough with dark-colored or bloody sputum (mucus) 8957-5800 [employer]. [address] [place] [address], [place] [address]. All rights reserved. This information is not intended as a substitute for professional medical care. Always follow yourhealthcare professional's instructions. Understanding Dysphagia If you have a problem swallowing foods or liquids, you may have dysphagia. This condition has a number of causes. Your healthcare provider can find out what is causing your problem and help relieve your symptoms. When You Swallow Your tongue pushes foods or liquids from your mouth to your throat as you eat or drink and swallow.They then pass down the esophagus (a muscular tube) into the stomach. To keep foods or liquids moving, the esophagus muscles tighten and relax in wavelive motions. Causes of dysphagia With dysphagia, foods or liquids do not easily pass down the esophagus. Dysphagia may happen if theesophagus mayberry thicken, causing a narrowing (stricture) of [...] you swallow Have fatigue and weight loss 3002-5222 [employer]. [address] [place] [address]. All rights reserved. This information is not intended as a substitute for professional medical care. Always follow yourhealthcare professional's instructions. Additional Information VACCINATE! IT SAVES LIVES! Members of the community who have not yet received the COVID-19 vaccine and would like to receive it can visit one of [facility] vaccine clinics. There are many vaccine clinic locations within the [facility]. For locations and available times, please visit [email or web address]/. It is important to note that some COVID mobile vaccine clinics are held outdoors and may be canceled in rainy or stormy conditions. To learn more about pediatric vaccinations (ages 5-11), we invite you to visit the [facility] webpage. https://www.[facility].org/pages/0042-Raerc-Gzvtcpseezk-Zeeaqpminm-Pxhob-Ryx stions.htmlTo learn more about the COVID-19 vaccine, we invite you to visit the CDC website for a list of frequently asked questions. https://www.cdc.gov/coronavirus/2019-ncov/vaccines/faq.html [facility] Patient Portal Access Instructions: Stay connected with your healthcare team and access your personal medical information anytime with the [facility] [employer] Patient Portal. If you would like a full copy of your medical records please contact the [facility] Medical Records Department Monday through Monday between 8a.m. and 4:30p.m. Please follow the directions below to access the portal: 1.Access the email account you provided upon [facility].2.Look for an invitation email from [facility].3.Open the email and access the invitation link: Accept Invitation to [facility]4.Fill in the required núñez to create your account. Sign into www.[email or web address] Crowd with your username and password that you [...] you will allow to register on the [facility] Patient Portal for access to your information. You can also access the [facility] Patient Portal on the [employer]. Simply click on Health Records under [employer] and then click on the [employer] logo. HOW TO SAFELY DISPOSE OF PRESCRIPTION MEDICATIONS Please use one of the following methods to safely dispose of your unused medications. 1.Use a drug disposal kit: the drug disposal pouch allows you to safely discard your old and unuseddrugs. Ask your nurse to give you one when you are discharged.2.Visit a local take-back location: Many local pharmacies and police departments have programs that collect old and unwanted prescriptiondrugs. Call your local pharmacy or go to http://bit.Podio/2M3Rt7l to find one close to you.3.Make use of household items: Use cat litter or old coffee grounds to dispose medications if other options arenot available. Mix your drugs with these household products, seal them in an airtight container andthrow it into the garbage. Call [facility]: [phone] to be sure your drugs can be [...] drowsiness, such as benzodiazepines, also known as benzos,including diazepam and alprazolam, muscle relaxants or sleep aids. Never sell or share prescriptionopioids. This is illegal. Store opioids in a [...] aware that I should contact my doctor. Patient/Pharmacology Associate Signature: Date/Time: Relationship to Patient: Witness Name/Signature: Date/Time: [facility] [id number] Note ORIGINAL EXAMINATION: TWO XRAY VIEWS OF [...] Sign Date: 12/07/2022 1:47:20 PM Ordering Provider: [place] [id number] Note ORIGINAL EXAMINATION: TWO XRAY VIEWS OF [...] Sign Date: 12/07/2022 1:36:44 PM Ordering Provider: [facility]04-05-2023 Note ORIGINAL EXAMINATION: TWO XRAY VIEWS OF [...] Sign Date: 12/07/2022 1:36:44 PM Ordering Provider: [facility]04-05-2023 Note ORIGINAL EXAMINATION: TWO XRAY VIEWS OF [...] Sign Date: 12/07/2022 1:47:20 PM Ordering Provider: [facility]11-06-2022 Hospital Discharge instructions Patient Education 07/10/2022 15:13:52 Knee Sprain [...] When sleeping, place a pillow under the injuredleg. When sitting, support the injured leg so it is above heart level. This is very important during the first 48 hours. Apply an ice pack over the injured area for 15 to 20 minutes every 3 to 6 hours. You should do thisfor the first 24 to 48 hours. You [...] 15 to 20 minutes several times a day,or alternate ice and heat. You can place the ice pack directly over the splint. If you have to weara htpx-jgd-hmzu knee brace, you can open it to apply the ice pack, or heat, directly to the knee. Never put ice directly on the skin. Always wrap the ice in a towel or other type of cloth. You may use lvoi-ekc-biihxvl pain medicine to control pain, unless another [...] wet, you can dry it with a social sciences department chair set to cool. If you have a qqgc-ace-gegi knee brace, you can remove this to [...] toes become cold, blue, numb, or tingly 0282-3208 [employer]. [address] [place] [address]. All rights reserved. This information is not intended as a substitute for professional medical care. Always follow yourhealthcare professional's instructions. Follow Up Care 07/10/2022 13:28:37 With:ELIAZAR AMOS MD Address: [place] [address] [phone] When:2-4 days [facility] 11-06-2022 Emergency department Discharge summary Discharge Instructions Thank you for allowing [facility] to assist you with your healthcare needs. The following is importantdischarge information regarding your hospital visit. Diagnosis from [...] AMOS MD When Within 2-4 days Where: [place] [phone] [phone] Allergies Zithromax Z-Clyde amoxicillin penicillin Medications Please ask your primary doctor or pharmacist before taking any other medication not listed, including over the counter drugs, herbal medications, vitamins and or supplements as they may interact withyour home medications. 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 What happens if I miss a dose? Since this medicine is used for pain, you are not likely to miss a dose. Skip any missed dose if itis almost time for your next dose. Do [...] health department. Make sure any person caring foryou knows where you keep naloxone and how to use it. What should I avoid while taking acetaminophen and hydrocodone? Avoid driving or operating machinery until you know how this medicine will affect you. Dizziness ordrowsiness can cause falls, accidents, or severe injuries. [...] if you have slow breathing with long pauses,blue colored lips, or if you are hard to wake up. In rare cases, acetaminophen may cause a severe skin reaction that can be fatal. This could occur even if you have taken acetaminophen in the past and had no reaction. Stop taking this medicine and call your doctor right away if you have skin redness or a rash that spreads and causes blistering andpeeling. Call your doctor at once if you [...] may report side effects to FDA at 6-376-EFP-8150. What other drugs will affect acetaminophen and [...] affect acetaminophen and hydrocodone, including prescription and hqhy-ppi-ykjkfja medicines, vitamins, and herbal products. Not all [...] to ensure that the information provided by [employer]. ('[employer]') is accurate, up-to-date, and complete, but no guarantee is made to that effect. Drug information contained herein may be time sensitive. [employer] information has been compiled for use by healthcare practitioners and consumers in the [place] and therefore [employer] does not warrant that uses outside of the [place] are appropriate, unless specifically indicated otherwise. [employer] drug information does not endorse drugs, diagnose patients or recommend therapy. [employer] drug information isan informational resource designed to assist licensed healthcare practitioners in caring for their p atients and/or to serve consumers viewing this service as a supplement to, and not a substitute for, the expertise, skill, knowledge and judgment of healthcare practitioners. The absence of a warningfor a given drug or drug combination in no way should be construed to indicate that the drug or drug combination is safe, effective or appropriate for any given patient. [employer] does not assume any responsibility for any aspect of healthcare administered with the aid of information [employer] provides. The information contained herein is not intended to cover all possible uses, directions, precautions, warnings, drug interactions, allergic reactions, or adverse effects. If you have questions about the drugs you are taking, check with your doctor, nurse or pharmacist. Copyright 3277-7078 [employer]. Version: 16.03. Revision Date: 10/06/2020. cefdinir (SE di nebelinda) Omnicef, Omnicef Omni-Pac What is the most [...] feet or ankles, feeling tired or short ofbreath. Common side effects may include: nausea, vomiting, stomach pain, diarrhea; vaginal itching or discharge; headache; or rash (including diaper rash in an taking liquid cefdinir. This is not a complete list of side effects and others may occur. Call your doctor for medical advice about side effects. You may report side effects to FDA at 2-429-ZGB-5154. What other drugs will affect cefdinir? Tell your doctor about all your other medicines, especially: probenecid; or vitamin or mineral supplements that contain iron. This list is not complete. Other drugs may affect cefdinir, including prescription and ksxo-ulz-uvwpfwa medicines, vitamins, and herbal products. Not all [...] to ensure that the information provided by [employer]. ('[employer]') is accurate, up-to-date, and complete, but no guarantee is made to that effect. Drug information contained herein may be time sensitive. [employer] information has been compiled for use by healthcare practitioners and consumers in the [place] and therefore [employer] does not warrant that uses outside of the [place] are appropriate, unless specifically indicated otherwise. [employer] drug information does not endorse drugs, diagnose patients or recommend therapy. [employer] drug information isan informational resource designed to assist licensed healthcare practitioners in caring for their p atients and/or to serve consumers viewing this service as a supplement to, and not a substitute for, the expertise, skill, knowledge and judgment of healthcare practitioners. The absence of a warningfor a given drug or drug combination in no way should be construed to indicate that the drug or drug combination is safe, effective or appropriate for any given patient. [employer] does not assume any responsibility for any aspect of healthcare administered with the aid of information [employer] provides. The information contained herein is not intended to cover all possible uses, directions, precautions, warnings, drug interactions, allergic reactions, or adverse effects. If you have questions about the drugs you are taking, check with your doctor, nurse or pharmacist. Copyright 5157-5028 [employer]. Version: 7.03. Revision Date: 09/07/2020. Education Materials [...] When sleeping, place a pillow under the injuredleg. When sitting, support the injured leg so it is above heart level. This is very important during the first 48 hours. Apply an ice pack over the injured area for 15 to 20 minutes every 3 to 6 hours. You should do thisfor the first 24 to 48 hours. You [...] 15 to 20 minutes several times a day,or alternate ice and heat. You can place the ice pack directly over the splint. If you have to weara hlzv-qpw-jqym knee brace, you can open it to apply the ice pack, or heat, directly to the knee. Never put ice directly on the skin. Always wrap the ice in a towel or other type of cloth. You may use krvy-nru-hyeiscs pain medicine to control pain, unless another [...] wet, you can dry it with a social sciences department chair set to cool. If you have a awfp-syn-nplo knee brace, you can remove this to [...] toes become cold, blue, numb, or tingly 4096-1956 [employer]. [address] [place] [address], [place] [address]. All rights reserved. This information is not intended as a substitute for professional medical care. Always follow yourhealthcare professional's instructions. Additional Information VACCINATE! IT SAVES LIVES! Members of the community who have not yet received the COVID-19 vaccine and would like to receive it can visit one of [facility] vaccine clinics. There are many vaccine clinic locations within the [facility]. For locations and available times, please visit [email or web address]. It is important to note that some COVID mobile vaccine clinics are held outdoors and may be canceled in rainy orstormy conditions. To learn more about pediatric vaccinations (ages 5-11), we invite you to visit the [facility] webpage. [email or web address]/[email or web address] [email or web address].htmlTo learn more about the COVID-19 vaccine, we invite you to visit the [facility] website for a list of frequently asked questions. [email or web address]-[email or web address]/[email or web address]-[email or web address] _[email or web address].pdf [facility] Patient Portal Access Instructions: Stay connected with your healthcare team and access your personal medical information anytime with the [facility] Patient Portal. If you would like a full copy of your medical records please contact the [facility] Medical Records Department Monday through Monday between 8a.m. and 4:30p.m. Please follow the directions below to access the portal: 1.Access the email account you provided upon [facility] to the [facility].2.Look for an invitation email from [facility].3.Open the email and access the invitation link: Accept Invitation to [facility]4.Fill in the required núñez to create your account. Sign into www.[employer] with your username and password that you [...] you will allow to register on the [facility] Patient Portal for access to your information. You can also access the [facility] Patient Portal on the [employer] ambar. Simply click on Health Records under Sokrati and then click on the [employer] logo. HOW TO SAFELY DISPOSE OF PRESCRIPTION MEDICATIONS Please use one of the following methods to safely dispose of your unused medications. 1.Use a drug disposal kit: the drug disposal pouch allows you to safely discard your old and unuseddrugs. Ask your nurse to give you one when you are discharged.2.Visit a local take-back location: Many local pharmacies and police departments have programs that collect old and unwanted prescriptiondrugs. Call your local pharmacy or go to http://Tervela.Podio/[email or web address] to find one close to you.3.Make use of household items: Use cat litter or old coffee grounds to dispose medications if other options arenot available. Mix your drugs with these household products, seal them in an airtight container andthrow it into the garbage. Call [facility] [place] [facility]: [phone] to be sure your drugs can be [...] drowsiness, such as benzodiazepines, also known as benzos,including diazepam and alprazolam, muscle relaxants or sleep aids. Never sell or share prescriptionopioids. This is illegal. Store opioids in a secure place and out of reach of others (including children, family, friends and visitors). The last page(s) of this document has been signed and retained as a CHART COPY Signatures Patient Education Materials Knee Sprain Medication Leaflets acetaminophen and hydrocodone, cefdinir My discharge plan and instructions have been reviewed and explained to me and I,WESTSUGEY Rober understand my current condition and have read and understand these discharge instructions. I have received a written copy of the plan/instructions. If I have questions, I am aware that I should contact my doctor. Patient/Pharmacology Associate Signature: Date/Time: Relationship to Patient: Witness Name/Signature: Date/Time: [facility]11-06-2022 Note ORIGINAL EXAMINATION: THREE XRAY VIEWS OF [...] Sign Date: 07/10/2022 3:14:40 PM Ordering Provider: [facility]11-06-2022 Note ORIGINAL EXAMINATION: THREE XRAY VIEWS OF [...] Sign Date: 07/10/2022 3:14:40 PM Ordering Provider: [facility]08-02-2022 Hospital Discharge instructions Patient Education 04/04/2022 22:29:58 R.I.C.E. RICE [...] and reduce pain. Don t place ice directlyon your skin. Wrap a cold pack or [...] worsens and is not improved with elevation. 8528-2287 [employer]. [address] [place] [address]. All rights reserved. This information is not intended as a substitute for professional medical care. Always follow yourhealthcare professional's instructions. Follow Up Care 04/04/2022 22:10:41 With:ELIAZAR AMOS MD Address: [address] [place] [address] [phone] When:2-4 days [facility] 08-01-2022 Note Discharge Instructions Thank you for allowing [facility] to assist you with your healthcare needs. The following is importantdischarge information regarding your hospital visit. Diagnosis from Today's Visit Knee injury - Minor What to Do Next Instructions from Your Care Team No qualifying data available. Post Acute Orders No qualifying data available. You Need to Schedule the Following Appointments Follow Up with ELIAZAR AMOS MD When Within 2-4 days Where: [facility] [place], [place] [address]- [phone] Allergies Zithromax Z-Clyde amoxicillin penicillin Medications Please ask your primary doctor or pharmacist before taking any other medication not listed, including over the counter drugs, herbal medications, vitamins and or supplements as they may interact withyour home medications. 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 Don t place ice directlyon your skin. Wrap a cold pack or [...] worsens and is not improved with elevation. 3015-2780 [employer]. [address] [place] [address], [place] [address]. All rights reserved. This information is not intended as a substitute for professional medical care. Always follow yourhealthcare professional's instructions. Additional Information VACCINATE! IT SAVES LIVES! Members of the community who have not yet received the COVID-19 vaccine and would like to receive it can visit one of [facility] vaccine clinics. There are many vaccine clinic locations within the [facility]. For locations and available times, please visit [email or web address]. It is important to note that some COVID mobile vaccine clinics are held outdoors and may be canceled in rainy orstormy conditions. To learn more about pediatric vaccinations (ages 5-11), we invite you to visit the [facility] webpage. [email or web address]/pages/[email or web address]-Tlued-Bfqlazyyetv-Mcwbdldzjs-Nixvf-Wkf stions.htmlTo learn more about the COVID-19 vaccine, we invite you to visit the [facility] website for a list of frequently asked questions. [email or web address]/[email or web address]-Ayoxuggyvc _Asked-Questions.pdf [facility] Patient Portal Access Instructions: Stay connected with your healthcare team and access your personal medical information anytime with the [facility] Patient Portal. If you would like a full copy of your medical records please contact the [facility] Medical Records Department Monday through Monday between 8a.m. and 4:30p.m. Please follow the directions below to access the portal: 1.Access the email account you provided upon registration to the hospital.2.Look for an invitation email from [facility].3.Open the email and access the invitation link: Accept Invitation to [facility]4.Fill in the required núñez to create your account. Sign into www.Part[employer]place with your username and password that you [...] you will allow to register on the [facility] Patient Portal for access to your information. You can also access the [facility] Patient Portal on the [employer] ambar. Simply click on Health Records under Sokrati and then click on the Ro[facility] logo. HOW TO SAFELY DISPOSE OF PRESCRIPTION MEDICATIONS Please use one of the following methods to safely dispose of your unused medications. 1.Use a drug disposal kit: the drug disposal pouch allows you to safely discard your old and unuseddrugs. Ask your nurse to give you one when you are discharged.2.Visit a local take-back location: Many local pharmacies and police departments have programs that collect old and unwanted prescriptiondrugs. Call your local pharmacy or go to http://Tervela.Podio/5X3Ze0b to find one close to you.3.Make use of household items: Use cat litter or old coffee grounds to dispose medications if other options arenot available. Mix your drugs with these household products, seal them in an airtight container andthrow it into the garbage. Call [facility] [place] [facility]: [phone] to be sure your drugs can be [...] drowsiness, such as benzodiazepines, also known as benzos,including diazepam and alprazolam, muscle relaxants or sleep aids. Never sell or share prescriptionopioids. This is illegal. Store opioids in a secure place and out of reach of others (including children, family, friends and visitors). The last page(s) of this document has been signed and retained as a CHART COPY Signatures Patient Education Materials R.I.C.E. Medication Leaflets My discharge plan and instructions have been reviewed and explained to me and KATHY Rod NAUTECA C understand my current condition and have read and understand these discharge instructions. I have received a written copy of the plan/instructions. If I have questions, I am aware that I should contact my doctor. Patient/Pharmacology Associate Signature: Date/Time: Relationship to Patient: Witness Name/Signature: Date/Time: [facility]08-01-2022 Note ORIGINAL EXAMINATION: THREE XRAY VIEWS OF [...] Sign Date: 04/04/2022 10:46:56 PM Ordering Provider: PATRIA PARRA [facility]08-01-2022 Note ORIGINAL EXAMINATION: THREE XRAY VIEWS OF [...] Sign Date: 04/04/2022 10:46:56 PM Ordering Provider: [facility]04-24-2022 Hospital Discharge instructions Patient Education 12/26/2021 16:36:18 Viral Syndrome [...] tests to know the difference. Watch for thewarning signs listed below for when to seek medical advice. Home care Follow these guidelines for taking care of yourself at home: If symptoms are severe, rest at home for the first 2 to 3 days. Stay away from cigarette smoke - both your smoke and the smoke from others. You may use emnc-xoh-xeetfeb acetaminophen or ibuprofen for fever, muscle aching, [...] replacement and sports drinks; and decaffeinated teas andcoffee. If you have been diagnosed with a kidney disease, ask your healthcare provider how much andwhat types of fluids you should drink to prevent dehydration. If you have kidney disease, drinking too much fluid can cause it build up in the your body and be dangerous to your health. Cejq-kva-vqzxlnm remedies won't shorten the length of the [...] or as directed by your healthcare provider 3540-1977 [employer]. [address] [place] [address]. All rights reserved. This information is not intended as a substitute for professional medical care. Always follow yourhealthcare professional's instructions. Follow Up Care 12/26/2021 16:05:33 With:ELIAZAR AMOS MD Address: [address] [place] [phone] When:2-4 days [facility] 06-09-2021 Evaluation + Plan note Future Scheduled Tests Laboratory* Pathology Lithograph Press Feeder Request 02/10/21 * Hepatitis B Surface Antigen 02/10/21 * Rapid Plasma Reagin Test 02/10/21 * Rubella Antibody 02/10/21 * Varicella Zoster Antibody 02/10/21 [facility] Date/Time March 18, 2025 12:3 1pm [facility] Medical Records Department [address] [place] [address] Emergency Department Summary 03/18/25 MR#: [id number] Acct: [id number] Name: SUGEY WEST Rep #:[id number] : 2000 24 From: Dedrick calhoun DO PCP: Dr. Eliazar Amos MD Status:R EG ER Location: ED HPI History of Present Illness Chief Complaint: Back Narrative Narrative: Chief complaint and HPI: Lumbar back pain. 24-year-old female with past medicalhistory of DM2, depression, migraines, anxiety, chronic back pain presents for evaluation of lumbar back pain. Patient states that she was dropping her kids off at daycare. States while getting in and out of the car she developed lumbarback pain-worse on the right. Describes it as crampy. Denies any trauma or injury. Denies numbness, weakness, urinary retention, stool or urinary incontinence, saddle anesthesia, recent invasive manipulation of the spine, intravenous drug use, or fever. Review of systems: See HPI Medications: As listed on the chart Allergies: As listed on the chart PFSH: Per chart Vital signs: As listed on the chart. Reviewed. Physical exam: Gen: A&O x3, NAD Head: Normocephalic, atraumatic Eyes: No sclera icterus, conjunctiva clear ENT: Moist mucous membranes Neck: Trachea midline, No JVD, full range of motion, nontender CV: RRR, no murmurs, no peripheral edema Resp: Lungs CTA BL, no w/r/c GI: Abd soft, non-distended, non-tender, no r/r/g Musc: Full ROM, no deformity, no midline spinal tenderness, no bony step-offs, tender to palpation of the paraspinal musculature of the lower lumbar spine-worse on the right compared to the left -recreates her pain-muscles are tense, strength +5/5 Skin: Warm, dry Neuro: Alert, oriented, grossly intact, sensation intact Psych: Cooperative, appropriate mood and affect [facility] Medical History (Updated 03/18/25 @ 12:[address] Dedrick aLgos DO) Upper respiratory infection Poor appetite Wears glasses Depression Anxiety Diabetes Low iron Easy bruising Injury of head and neck Migraine headache Dietary restriction Vapes nicotine containing substance Asthma Shortness of breath on exertion History of pain when walking History of edema Cardiology follow-up encounter Hypertension Gastroenteritis Screening for thyroid disorder Dermatitis Hemoptysis Cough Cubital tunnel syndrome on left Ulnar neuropathy Preoperative evaluation to rule out surgical contraindication Migraine Type 2 diabetes mellitus Post concussion syndrome Hypersomnia Left shoulder pain Thyromegaly Thyromegaly Vision problems High cholesterol Chronic back pain Right knee pain Generalized anxiety disorder with panic attacks Generalized anxiety disorder Obesity (BMI 30-39.9) Paresthesia Low back pain Shortness of breath Left ventricular noncompaction Pneumonia Asthma Essential hypertension Insomnia History of migraine Diabetes Depression Home Medications ?Medication ?Instructions ?Recorded ?Last Taken ?Type blood-glucose sensor (FreeStyle #1 ea 05/03/24 Unknown History Jazmin 3 Sensor device) triamcinolone acetonide 0.1 % 1 applic topical BID PRN rash #30 05/03/24 Unknown Rx topical ointment grams sumatriptan succinate 25 mg tablet See Rx Instructions PO .COMPLEX 07/19/24 Unknown Rx (Imitrex) #14 tabs hydroxyzine HCl 25 mg tablet 25 mg PO BID PRN anxiety #90 tabs 08/21/24 Unknown Rx quetiapine 50 mg tablet (Seroquel) 50 mg PO QHS #60 ta bs 10/31/24 Unknown Rx blood sugar diagnostic (OneTouch #10 ea 11/06/24 Unkno wn History Verio test strips) blood-glucose meter (OneTouch #1 ea 11/06/24 Unknown H istory Verio Flex Meter) dulaglutide 1.5 mg/0.5 mL 1.5 mg subcut QWEEK 11/06/24 Unknown History subcutaneous pen injector (Trulicity) lancets 30 gauge (OneTouch Delica #100 ea 11/06/24 Unk nown History Plus Lancet) lorazepam 1 mg capsule,extended 1 mg PO QDAY 11/06/24 Unknown History release 24 hr cholecalciferol (vitamin D3) 125 125 mcg PO QDAY #90 t abs 11/15/24 Unknown Rx mcg (5,000 unit) tablet cyanocobalamin (vitamin B-12) 1,000 mcg PO QDAY #90 ta bs 11/15/24 Unknown Rx 1,000 mcg tablet famotidine 40 mg tablet 40 mg PO QDAY #90 tabs 11/15 Unknown Rx losartan 25 mg tablet 25 mg PO QDAY #30 tabs 11/15 Unknown Rx topiramate 25 mg tablet (Topamax) 75 mg (3 x 25 mg) PO BID 1 month 11/15/24 Unknown Rx #180 tabs albuterol sulfate 90 mcg/actuation 2 puff inhalation Q 6H PRN 01/03/25 Unknown Rx aerosol inhaler Shortness Of Breath Or Wheez ing #8.5 grams benzonatate 200 mg capsule 200 mg PO BID PRN cough 7 d ays #14 01/17/25 Unknown Rx caps cyclobenzaprine 5 mg tablet 5 mg PO TID PRN muscle spa sm 3 03/18/25 Unknown Rx days #9 tabs Allergy/AdvReac Type Severity Reaction Status Date / Time vancomycin Allergy Mild Hives Verified 03/18/25 11:04 amoxicillin Allergy Unknown unknown Verified 03/18/25 11:04 azithromycin (From Zithromax Allergy Unknown unknown Verified 03/18/25 11:04 Z-Clyde) Penicillins Allergy Unknown unknown Verified 03/18/25 11:04 Family History Father No problems noted. Grandfather Diabetes Grandmother Hypertension Aunt Hypertension Other Anxiety Arthritis Asthma Depression Osteoporosis Respiratory disease Severe allergy Surgical History History of nasal cauterization History of tonsillectomy and adenoidectomy Hx of myringotomy History of nasal cauterization Social History Smoking Status: Current every day smoker tobacco type: e-cigarettes Tobacco: How many years used: 4 how long ago did patient quit smokin09/04/2020- pt vapes second hand exposure: No alcohol intake: current alcohol intake frequency: a few times a month Alcohol type: hard liquor substance use type: does not use caffeine: No what type of physical activity do you participate in: walking frequency: daily seatbelt use: sometimes additional social history: DOES NOT TAKE ASPIRIN DOES TAKE IBUPROFEN NEEDED pt admits to vaping, denies marijuana use, denies edibles EXAM Physical Exam Const Vital Signs: 03/18/25 11:01 03/18/25 11:46 Temperature 98.4 F Temperature Source Temporal Pulse Rate 77 Respiratory Rate 16 Blood Pressure 133/112 H 121/93 H Blood Pressure Mean 119 102 Pulse Ox 98 Oxygen Delivery Method Room Air MDM MDM MDM Narrative Medical decision making narrative: 24-year-old female with past medical history of DM2, depression, migraines, anxiety, chronic back pain presents for evaluation of lumbar back pain. Patientstates that she was dropping her kids off at daycare. States while getting in and out of the car she developed lumbar back pain-worse on the right. Physical exam consistent with lumbar paraspinal musculature tenderness. Recreates her pain. There has been no trauma. There is nothing to suggest any infectious etiology. There is no neurologic findings to suggest an acute cauda equina syndrome, infectious etiology, or any acute radiculopathy. At this point I do not feel any emergent imaging such as x-rays or MRI are warranted. Patient symptoms will be treated. She would not be given a muscle relaxer given that she is driving. Will give IM Toradol. Muscle relaxers as needed for home. Patient's blood pressure improved with pain medicine. Patient stable to discharge home. Follow-up with primary care physician. Tylenol and Motrin as needed for pain. Prescription for muscle relaxers as needed. Recommended IcyHot and heating pad as well as gentle stretching. Return precautions explained. Patient confirmed understand the plan. Impression: 1. Lumbar back spasm Discharge Plan Triage Chief Complaint: Back ED Provider: Dedrick Lagos Dx/Rx/DC Orders Clinical Impression: Back muscle spasm Instructions: ED Muscle Spasm Prescriptions: New cyclobenzaprine 5 mg tablet 5 mg PO TID PRN (Reason: muscle spasm) 3 Days Qty: 9 0RF No Action (DME) FreeStyle Jazmin 3 Sensor Device See Rx Instructions .ROUTE .MEDSUPPLY Qty: 1 Patient Comments: [NO ORIGINAL SIG] Rx Instructions: As directed triamcinolone acetonide 0.1 % ointment 1 applic topical BID PRN (Reason: rash) Qty: 30 1RF sumatriptan succinate [Imitrex] 25 mg tablet See Rx Instructions PO .COMPLEX Qty: 14 2RF Rx Instructions: take 1 tab at onset of headache; if no relief may repeat 1 tab after at least 2 hrs; max = 4 tabs/24 hr PO losartan 25 mg tablet 25 mg PO QDAY Qty: 30 3RF topiramate [Topamax] 25 mg tablet 75 mg PO BID 30 Days Qty: 180 1RF Rx Instructions: Take 50 mg at night and 25 mg in the morning. famotidine 40 mg tablet 40 mg PO QDAY Qty: 90 1RF cholecalciferol (vitamin D3) 125 mcg (5,000 unit) tablet 125 mcg PO QDAY Qty: 90 1RF cyanocobalamin (vitamin B-12) 1,000 mcg tablet 1,000 mcg PO QDAY Qty: 90 1RF (DME) blood-glucose meter [OneTouch Verio Flex meter] Misc See Rx Instructions .ROUTE .MEDSUPPLY Qty: 1 Rx Instructions: As directed (DME) OneTouch Verio test strips Strip See Rx Instructions .ROUTE BID Qty: 10 Rx Instructions: As directed (DME) lancets [OneTouch Delica Plus Lancet] 30 gauge misc See Rx Instructions .ROUTE BID Qty: 100 Rx Instructions: As directed Trulicity 1.5 mg/0.5 mL pen injector 1.5 mg subcut QWEEK lorazepam 1 mg capsule,extended release 24hr 1 mg PO QDAY benzonatate 200 mg capsule 200 mg PO BID PRN (Reason: cough) 7 Days Qty: 14 0RF hydroxyzine HCl 25 mg tablet 25 mg PO BID PRN (Reason: anxiety) Qty: 90 1RF quetiapine [Seroquel] 50 mg tablet 50 mg PO QHS Qty: 60 1RF albuterol sulfate 90 mcg/actuation HFA aerosol inhaler 2 puff INHALATION Q6H PRN (Reason: Shortness Of Breath Or Wheezing) Qty: 8.5 1RF Primary Care Provider: Eliazar Amos Referrals: Eliazar Amos MD [Primary Care Provider] - 3-5 Days Activity Restrictions/Additional Instructions: You received Toradol here in the emergency department, no ibuprofen for 8 hours. Okay for Tylenol. IcyHot and heating pad as needed for pain. Recommend gentlestretching. Follow-up with primary care physician. Return back to the ED if symptoms change or worsen. Muscle relaxers as needed. Do not drive or operate heavy machinery while taking these. They can increase confusion, fatigue, falls. Print Language: [place] Disposition Disposition: Home, Self Care What to do if you have Problems For any increased pain, shortness of breath, bleeding, nausea or vomiting, chestpain, or any unexpected problems, contact your Primary Care Provider. Call [facility] ([phone]) or report to the closest Emergency Room. Call 911 if necessary. 03/18/25 1231 <Electronically signed by Dedrick Lagos DO> Cosigner Signature (if applicable): CC: Dr. Eliazar Amos MD ~ Signed [facility] Work Phone: Evaluation note* Diagnosis Onset Date Resolution Status Right knee pain acute Chronic back pain chronic Diabetes chronic Essential hypertension chron ic Generalized anxiety disorder with panic attacks chronic Former smoker acute Hemoglobin A1c greater than 9.0% acute Intertrigo acute Macromastia acute Chronic midline thoracic back pain chronic Chronic neck pain chronic Diabetes chronic Shoulder pain chronic Generalized anxiety disorder acute Left shoulder pain acute Thyromegaly acute [facility] Work Phone: Evaluation note* Diagnosis Onset Date Resolution Status Hypersomnia acute Thyromegaly acute Diabetes chronic Essential hypertension chron ic Generalized anxiety disorder chronic [facility] Work Phone: Evaluation note* Diagnosis Onset Date Resolution Status Mechanical pain of right knee acute Anxiety chronic Depression chronic Family history of cerebral aneurysm chronic Hypersomnia chronic Migraine headache without aura chronic Post concussion syndrome chr onic [facility] Work Phone: Evaluation note* Diagnosis Type II diabetes mellitus with manifestations (HCC)- Primary Type II or unspecified type diabetes mellitus with other specified manifestations, not stated as uncontrolled Goiter Goiter, unspecified [facility] Diagnosis Type II diabetes mellitus with manifestations (HCC)- Primary Type II or unspecified type diabetes mellitus with other specified manifestations, not stated as uncontrolled [facility] Diagnosis Poorly controlled type 2 diabetes mellitus (HCC)- Primary Type II or unspecified type diabetes mellitus without mention of complication, not stated as uncontrolled [facility] Diagnosis Type II diabetes mellitus with manifestations (HCC) Type II or unspecified type diabetes mellitus with other specified manifestations, not stated as uncontrolled [facility] Diagnosis Onset Date Resolution Status Family history of cerebral aneurysm chronic Fatigue chronic Hypersomnia chronic Migraine headache without aura chronic Post concussion syndrome chr onic ACL (anterior cruciate ligament) rupture acute Medial meniscus tear acute Yeast vaginitis acute Essential hypertension chron ic Post concussion syndrome chr onic Type 2 diabetes mellitus chr onic ACL (anterior cruciate ligament) rupture acute Medial meniscus tear acute Preoperative evaluation to r viviane out surgical contraindication acute Ulnar neuropathy acute Cubital tunnel syndrome on left acute Cough acute Dermatitis acute Hemoptysis acute Essential hypertension chron ic Type 2 diabetes mellitus chr [facility] Work Phone: Evaluation note* Diagnosis Poorly controlled type 2 diabetes mellitus (HCC)- Primary Type II or unspecified type diabetes mellitus without mention of complication, not stated as uncontrolled [facility] Diagnosis Onset Date Resolution Status Cough acute Dermatitis acute Hemoptysis acute Essential hypertension chron ic Type 2 diabetes mellitus chr onic ACL (anterior cruciate ligament) rupture acute Cubital tunnel syndrome on left acute Medial meniscus tear acute [facility] Work Phone: Evaluation note* Diagnosis Onset Date Resolution Status Cough acute Dermatitis acute Hemoptysis acute Essential hypertension chron ic Type 2 diabetes mellitus chr onic ACL (anterior cruciate ligament) rupture acute Cubital tunnel syndrome on left acute Medial meniscus tear acute Gastroenteritis acute Essential hypertension chron ic Generalized anxiety disorder with panic attacks chronic Obesity (BMI 30-39.9) chroni c Type 2 diabetes mellitus chr [facility] Work Phone: Evaluation note* Diagnosis Onset Date Resolution Status Cough acute Dermatitis acute Hemoptysis acute Essential hypertension chron ic Type 2 diabetes mellitus chr onic ACL (anterior cruciate ligament) rupture acute Cubital tunnel syndrome on left acute Medial meniscus tear acute Gastroenteritis acute Essential hypertension chron ic Generalized anxiety disorder with panic attacks chronic Obesity (BMI 30-39.9) chroni c Type 2 diabetes mellitus chr onic ACL (anterior cruciate ligament) rupture acute Medial meniscus tear acute [facility] Work Phone: Evaluation note* Diagnosis Poorly controlled type 2 diabetes mellitus (HCC)- Primary Type II or unspecified type diabetes mellitus without mention of complication, not stated as uncontrolled [facility] Diagnosis Diabetes mellitus treated with injections of non-insulin medication (HCC)- Primary documented in this encounter [facility] note* Diagnosis Acute upper respiratory infection- Primary Acute upper respiratory infections of unspecified site documented in this encounter [facility] Work Phone: Evaluation note* Diagnosis URI with cough and congestion- Primary Left otitis media, unspecified otitis media type Pharyngitis, unspecified etiology documented in this encounter [facility] note* Diagnosis Type II diabetes mellitus with manifestations (HCC)- Primary Type II or unspecified type diabetes mellitus with other specified manifestations, not stated as uncontrolled Poorly controlled type 2 diabetes mellitus (HCC)- Primary Type II or unspecified type diabetes mellitus without mention of complication, not stated as uncontrolled documented in this encounter [facility] note* Diagnosis Diabetes mellitus treated with injections of non-insulin medication (HCC)- Primary documented in this encounter [facility] noteNo assessment information availableWMadison Health Work Phone: Hospital course Narrative No data available for this section [facility] Hospital Discharge instructions No data available for this section [facility] Hospital Discharge instructions Additional Instructions Implant Used?: [facility] Work [facility]: Hospital Discharge instructionsAdditional Instructions You received Toradol here in the emergency department, no ibuprofen for 8 hours. Okay for Tylenol. IcyHot and heating pad as needed for pain. Recommend gentle stretching. Follow- up with primary care physician. Return back to the ED if symptoms change or worsen. Muscle relaxers as needed. Do not drive or operate heavy machinery while taking these. They can increase confusion, fatigue, falls.[facility] Work Phone: Hospital Discharge instructionsAmbulatory Orders* Dermatology Location: None Selected [facility] Work Phone: Progress note No data available for this section [facility] Reason for referral (narrative)* Diagnostic Procedure Only (Routine) - Closed Specialty Diagnoses / Procedures Referred By Lincoln evans Referred To Contact [facility] Diagnoses Type II diabetes mellitus with manifestations (HCC) Procedures US THYROID/PARATHYROID US SOFT TISSUE HEAD & NECK REAL TIME IMGE DOCM Paige Muller APRN.CNP [id number] [place] [address] [place] [address] Referral ID Status Reason Start Date Expiration Date V isits Requested Visits Authorized [id number] Closed Auto-Generate d Referral 04/05/2023 05/04/2024 1 1 [facility]No reason for referral information availableWMadison Health Work Phone: Reason for referral (narrative)* Medication Prior Authorization - Pending Review Specialty Diagnoses / Procedures Referred By Contshirlene t Referred To Contact Paige Muller APRN.CNP [id number] [place] [address] Phone: tel: fax: Referral ID Status Reason Start Date Expiration Date V isits Requested Visits Authorized [id number] Pending Review 1 1 [facility] Summary Purpose Family History No Family History Records Found Relationship Condition Age at Onset Recorded Date/T amena Not Specified Severe allergy Unknown Osteoporosis Unknown Anxiety Unknown Arthritis Unknown Depression Unknown Disorder of respiratory system Unknown Asthma Unknown father Suicide Unknown grandfather Diabetes mellitus Unknown grandmother Hypertension Unknown aunt Hypertension Unknown Relationship Condition Age at Onset Recorded Date/T amena Not Specified Severe allergy Unknown Osteoporosis Unknown Anxiety Unknown Arthritis Unknown Depression Unknown Disorder of respiratory system Unknown Asthma Unknown grandfather Diabetes mellitus Unknown grandmother Hypertension Unknown aunt Hypertension Unknown Advance Directives No Advanced Directives Records Found Advance Directive Response Recorded Date/ Time Living Will No November 17, 2021 3:11pm Power of Pigs Feet Cleaner No November 17 3:11pm Advance Directive Response Recorded Date/ Time Living Will No December 08, 2021 6:35pm Power of Pigs Feet Cleaner No December 08 6:35pm Advance Directive Response Recorded Date/ Time Living Will No June 25 1:45pm Power of Pigs Feet Cleaner No June 25, 2022 1:45pm Advance Directive Response Recorded Date/ Time Living Will No August 12 5:07pm Power of Pigs Feet Cleaner No August 12, 2022 5:07pm Advance Directive Response Recorded Date/ Time Living Will No August 12 6:07pm Power of Pigs Feet Cleaner No August 12, 2022 6:07pm Advance Directive Response Recorded Date/ Time Living Will No October 10 11:53am Power of Pigs Feet Cleaner No October 10, 2023 11:53am Advance Directive Response Recorded Date/ Time Living Will No November 08, 2023 11:01am Power of Pigs Feet Cleaner No November 07 11:01am Advance Directive Response Recorded Date/ Time Living Will No October 14 11:13pm Do you have a Healthcare Power of Pigs Feet Cleaner? No October 14, 2024 11:13pm Advance Directive Response Recorded Date/ Time Living Will No October 14 11:13pm Do you have a Healthcare Power of Pigs Feet Cleaner? No October 14, 2024 11:13pm Do you have a Healthcare Power of Pigs Feet Cleaner? No January 17, 2025 8:56pm Advance Directive Response Recorded Date/ Time Do you have a Healthcare Power of Pigs Feet Cleaner? No January 17, 2025 8:56pm Do you have a Healthcare Power of Pigs Feet Cleaner? 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 PT CONSULT MED REFILL LACERATION Reason for Visit Right knee pain Chronic back pain Diabetes Essential hypertension Generalized anxiety disorder with panic attacks Former smoker Hemoglobin A1c greater than 9.0% Intertrigo Macromastia Chronic midline thoracic back pain Chronic neck pain Diabetes Shoulder pain Generalized anxiety disorder Left shoulder pain Thyromegaly Chief Complaint MED REFILLS AND TSH CONCERNS Reason for Visit Hypersomnia Thyromegaly Diabetes Essential hypertension Generalized anxiety disorder Chief Complaint MED REFILLS AND TSH CONCERNS COLD SX Reason for Visit Hypersomnia Thyromegaly Diabetes Essential hypertension Generalized anxiety disorder Chief Complaint MED REFILLS AND TSH CONCERNS COLD SX COUGH Reason for Visit Hypersomnia Thyromegaly Diabetes Essential hypertension Generalized anxiety disorder Chief Complaint RIGHT KNEE Memory loss, Dizziness, migraines AMNESIA RIGHT KNEE PAIN/ eorders labs/dr lacy Reason for Visit Mechanical pain of r ight knee Anxiety Depression Family history of cerebral aneurysm Hypersomnia Migraine headache without aura Post concussion syndrome Chief Complaint 4 M FU RIGHT KNEE DIABETES FOLLOW UP RIGHT KNEE numbness in lft hand/surgery clearance ELBOW 3 M FU Reason for Visit Family history of ce rebral aneurysm Fatigue Hypersomnia Migraine headache without aura Post concussion syndrome ACL (anterior cruciate ligament) rupture Medial meniscus tear Yeast vaginitis Essential hypertension Post concussion syndrome Type 2 diabetes mellitus ACL (anterior cruciate ligament) rupture Medial meniscus tear Preoperative evaluation to rule out surgical contraindication Ulnar neuropathy Cubital tunnel syndrome on left Cough Dermatitis Hemoptysis Essential hypertension Type 2 diabetes mellitus Chief Complaint 3 M FU right knee LEFT UPPER CTS LEFT UPPER CTS Reason for Visit Cough Dermatitis Hemoptysis Essential hypertension Type 2 diabetes mellitus ACL (anterior cruciate ligament) rupture Cubital tunnel syndrome on left Medial meniscus tear Chief Complaint 3 M FU right knee LEFT UPPER CTS LEFT UPPER CTS PRE EMP/NON DOT/DRUG SCREEN/[place] follow up Reason for Visit Cough Dermatitis Hemoptysis Essential hypertension Type 2 diabetes mellitus ACL (anterior cruciate ligament) rupture Cubital tunnel syndrome on left Medial meniscus tear Gastroenteritis Essential hypertension Generalized anxiety disorder with panic attacks Obesity (BMI 30-39.9) Type 2 diabetes mellitus Chief Complaint 3 M FU right knee LEFT UPPER CTS LEFT UPPER CTS PRE EMP/NON DOT/DRUG SCREEN/[place] follow up RT KNEE ARTHROSCOPY ACL RECONSTRUCTION QUADRICEPS RT KNEE ARTHROSCOPY ACL RECONSTRUCTION QUADRICEPS Reason for Visit Cough Dermatitis Hemoptysis Essential hypertension Type 2 diabetes mellitus ACL (anterior cruciate ligament) rupture Cubital tunnel syndrome on left Medial meniscus tear Gastroenteritis Essential hypertension Generalized anxiety disorder with panic attacks Obesity (BMI 30-39.9) Type 2 diabetes mellitus ACL (anterior cruciate ligament) rupture Medial meniscus tear Chief Complaint Admit Date hypoglycemia October 14, 2024 10:11pm BREAST REDUCTION November 06, 2024 3:05 pm 4 M FU November 15, 2024 10: 07am Reason for Visit Admit Date Breast hypertrophy November 06, 2024 3:05 pm Breast ptosis November 06, 2024 3:05 pm Current every day vaping November 06, 2024 3:05pm Severe obesity (BMI >= 40) November 06 3:05pm Chronic back pain November 06, 2024 3:05 pm Breast hypertrophy November 15, 2024 10: 07am Upper respiratory infection November 15, 2024 10:07am Essential hypertension November 15, 2024 10:07am Migraine November 15, 2024 10: 07am Type 2 diabetes mellitus November 15 10:07am Chief Complaint Admit Date hypoglycemia October 14, 2024 10:11pm BREAST REDUCTION November 06, 2024 3:05 pm 4 M FU November 15, 2024 10: 07am CHEST PAIN January 17, 2025 8:44p m Chief Complaint Admit Date CHEST PAIN January 17, 2025 8:44p m BACK March 18, 2025 11:0 1am Chief Complaint Admit Date CHEST PAIN January 17, 2025 8:44p m BACK March 18, 2025 11:0 1am BACK PAIN March 20, 2025 5:59 pm Reason for Referral Specialty Diagnoses / Procedures Referred By Contac t Referred To Contact Diagnoses Diabetes mellitus treated with injections of non-insulin medication (HCC) Procedures ENDOCRINOLOGY DIETITIAN VISIT (MNT) MEDICAL NUTRITION ASSMT&IVNTJ INDIV EACH 15 CA MEDICAL NUTRITION ASSMT&IVNTJ INDIV EACH 15 CA MEDICAL NUTRITION ASSMT&IVNTJ INDIV EACH 15 CA MEDICAL NUTRITION ASSMT&IVNTJ INDIV EACH 15 CA Paige Muller HAND BINDER CUTTER.ELECTRICIAN SUPERVISOR AIRPLANE [address] [place] [address] Referral ID Status Reason Start Date Expiration Date Visits Requested Visits Authorized [id number] Authorized PCP Requested Referral 05/27/2024 05/27/2025 1 1 Specialty Diagnoses / Procedures Referred By Contac t Referred To Contact Nutrition Diagnoses Type II diabetes mellitus with manifestations (HCC) Procedures CONSULT TO NUTRITION THERAPY MEDICAL NUTRITION ASSMT&IVNTJ INDIV EACH 15 CA MEDICAL NUTRITION ASSMT&IVNTJ INDIV EACH 15 CA MEDICAL NUTRITION ASSMT&IVNTJ INDIV EACH 15 CA MEDICAL NUTRITION ASSMT&IVNTJ INDIV EACH 15 CA Paige Muller APRN.ELECTRICIAN SUPERVISOR [employer]PLANE [address] [place] [address] Referral ID Status Reason Start Date Expiration Date Visits Requested Visits Authorized [id number] Authorized PCP Requested Referral 05/17/2023 05/16/2024 1 1 Specialty Diagnoses / Procedures Referred By Contac t Referred To Contact Paige Muller APRN.ELECTRICIAN SUPERVISOR [employer] [address] [place] [id number] Referral ID Status Reason Start Date Expiration Date Visits Re quested Visits Authorized [id number] Closed 1 1 Specialty Diagnoses / Procedures Referred By Contac t Referred To Contact US IMAGING Diagnoses Type II diabetes mellitus with manifestations (HCC) Procedures US THYROID/PARATHYROID US SOFT TISSUE HEAD & NECK REAL TIME IMGE DOCM Paige Muller APRN.ELECTRICIAN SUPERVISOR [employer]PL[employer] [id number] [place] [id number] [facility] Referral ID Status Reason Start Date Expiration Date Visits Requested Visits Authorized [id number] Authorized Auto-Generat ed Referral 04/05/2023 05/04/2024 1 1 Specialty Diagnoses / Procedures Referred By Contac t Referred To Contact Diagnoses Type II diabetes mellitus with manifestations (HCC) Procedures CONSULT TO DIABETES EDUCATION DSME/MNT MEDICAL NUTRITION ASSMT&IVNTJ INDIV EACH 15 [place] MEDICAL NUTRITION ASSMT&IVNTJ INDIV EACH 15 CA MEDICAL NUTRITION ASSMT&IVNTJ INDIV EACH 15 [place] MEDICAL NUTRITION ASSMT&IVNTJ INDIV EACH 15 [place] Paige Muller APRN.ELECTRICIAN SUPERVISOR [employer] [id number] [place] [id number] Referral ID Status Reason Start Date Expiration Date Visits Requested Visits Authorized [id number] Authorized PCP Requested Referral 04/05/2023 04/04/2024 1 1 Additional Source Comments INFORMATION SOURCE (unrecogn ized section and content) DATE CREATED AUTHOR 03/18/2021 [facility] DATE CREATED AUTHOR AUTHOR'S ORGANIZ ATION 11/01/2023 [facility] DATE CREATED AUTHOR AUTHOR'S ORGANIZ ATION 07/28/2024 [facility] DATE CREATED AUTHOR AUTHOR'S ORGANIZ ATION 08/06/2024 Re Hutchinson jennifer DATE CREATED AUTHOR AUTHOR'S ORGANIZ ATION 09/15/2024 [facility] DATE CREATED AUTHOR AUTHOR'S ORGANIZ ATION 01/21/2025 [facility] DATE CREATED AUTHOR AUTHOR'S ORGANIZ ATION 03/27/2025 [facility] Goals (unrecognized section and content) Goals may be documented in a n alternate sectionGoals may be documented in an alternate section No data available for this section No data available for this section No data available for this sectionGoals may be documented in an alternate sectionGoals may be documented in an alternate section No data available for this sectionGoals may be documented in an alternate section No data available for this section No data available for this section No data available for this sectionGoals may be documented in an alternate sectionGoals may be documented in an alternate sectionGoals may be documented in an alternate sectionGoals may be documented in an alternate section No data available for this section No data available for this sectionGoals may be documented in an alternate sectionGoals may be documented in an alternate sectionGoals may be documented in an alternate sectionGoals may be documented in an alternate section Care Team (unrecognized sect ion and content) Team Status: Active Member Role Status Dates Dr. Clara Green MD Family Provider Active Dr. Eliazar Amos MD Primary Care Provider Active Team Status: Inactive Member Role Status Dates Dr. Eliazar Amos MD Primary Care Provider, Refer ring Provider Active Dr. Saulo Lacy MD Attending Provider Active Team Status: Inactive Member Role Status Dates Dr. Eliazar Amos MD Primary Care Provider, Refer ring Provider Active Dr. Solis Hassan DO Attending Provider Active Team Status: Inactive Member Role Status Dates Dr. Eliazar Amos MD Primary Care Provider Active Dr. Saulo Lacy MD Attending Provider, Referring Provider Active Dr. Solis Hassan DO Other Provider Active Team Status: Inactive Member Role Status Dates Dr. Eliazar Amos MD Primary Care Provider Active Dr. Saulo Lacy MD Attending Provider, Referring Provider Active General Forecaster Relationship Specialty Start Date End Date Eliazar Amos MD [address] [address] PCP - General Internal Medicine 04/05/23 General Forecaster Relationship Specialty Start Date End Date Eliazar Amos MD [address] [address] PCP - General Internal Medicine 04/05/23 General Forecaster Relationship Specialty Start Date End Date Eliazar Amos MD [address] [place] [address] PCP - General Internal Medicine 04/05/23 General Forecaster Relationship Specialty Start Date End Date Eliazar Amos MD [address] [place] [address] PCP - General Internal Medicine 04/05/23 General Forecaster Relationship Specialty Start Date End Date Eliazar Amos MD [address] [address] PCP - General Internal Medicine 04/05/23 General Forecaster Relationship Specialty Start Date End Date Eliazar Amos MD [address] [address] PCP - General Internal Medicine 04/05/23 General Forecaster Relationship Specialty Start Date End Date Eliazar Amos MD [address] [place] [address] PCP - General Internal Medicine 04/05/23 Team Status: Inactive Member Role Status Dates Dr. Eliazar Amos MD Primary Care Moriah pickett, Attending Provider, Referring Provider Active Team Status: Inactive Member Role Status Dates Dr. Eliazar Amos MD Primary Care Provider, Refer ring Provider Active Indio Olivares MD Attending Provider Active Team Status: Inactive Member Role Status Dates Dr. Eliazar Amos MD Primary Care Provider, Atten ding Provider Active General Forecaster Relationship Specialty Start Date End Date Eliazar Amos MD [address] [place] [address] (Fax) PCP - General Internal Medicine 04/05/23 Team Status: Active Member Role Status Dates Dr. Eliazar Amos MD Primary Care Provider Active Indio Olivares MD Referring Provider, Other Provider Active Dr. Juan Fischer MD Attending Provider Active Team Status: Inactive Member Role Status Dates Dr. Eliazar Amos MD Primary Care Provider Active Indio Olivares MD Attending Provider, Referring Prov ider Active Team Status: Inactive Member Role Status Dates Dr. Eliazar Amos MD Primary Care Provider, Refer ring Provider Active Chad ROBERTS, [place] Attending Provider Active Team Status: Active Member Role Status Dates Dr. Eliazar Amos MD Primary Care Provider, Refer ring Provider Active Indio Olivares MD Attending Provider, Other Provider Active General Forecaster Relationship Specialty Start Date End Date Eliazar Amos MD [address] [place] [address] PCP - General Internal Medicine 04/05/23 General Forecaster Relationship Specialty Start Date End Date Eliazar Amos MD [address] [place] [address] PCP - General Internal Medicine 04/05/23 General Forecaster Relationship Specialty Start Date End Date Eliazar Amos MD [address] [place] [address] (Fax) PCP - General Internal Medicine 04/05/23 General Forecaster Relationship Specialty Start Date End Date Eliazar Amos MD [address] [place] [address] PCP - General Internal Medicine 04/05/23 General Forecaster Relationship Specialty Start Date End Date Eliazar Amos MD [address] [address] PCP - General Internal Medicine 04/05/23 General Forecaster Relationship Specialty Start Date End Date Eliazar Amos MD [address] [address] PCP - General Internal Medicine 04/05/23 General Forecaster Relationship Specialty Start Date End Date Eliazar Amos MD [address] [address] PCP - General Internal Medicine 04/05/23 Team Status: Active Member Role Status Dates Dr. Eliazar Amos MD Primary Care Provider Active Team Status: Inactive Member Role Status Dates Dr. Eliazar Amos MD Primary Care Provider Active Start: October 14, 2024 End: October 15, 2024 Dr. Shlomo Santizo DO Attending Provider Active Start: October 14, 2024 End: October 15, 2024 Dr. Shlomo Santizo DO Emergency Provider Active Start: October 14, 2024 End: October 15, 2024 Team Status: Inactive Member Role Status Dates Dr. Eliazar Amos MD Primary Care Provider Active Start: November 06, 2024 End: November 06, 2024 Dr. Eliazar Amos MD Referring Provider Active Start: November 06, 2024 End: November 06, 2024 Dr. Delores Begum MD Attending Provider Active Start: November 06, 2024 End: November 06, 2024 Team Status: Inactive Member Role Status Dates Dr. Eliazar Amos MD Primary Care Provider Active Start: November 15, 2024 End: November 15, 2024 Dr. Eliazar Amos MD Attending Provider Active Start: November 15, 2024 End: November 15, 2024 Dr. Eliazar Amos MD Referring Provider Active Start: November 15, 2024 End: November 15, 2024 General Forecaster Relationship Specialty Start Date End Date Eliazar Amos MD [address] [address] PCP - General Internal Medicine 04/05/23 General Forecaster Relationship Specialty Start Date End Date Eliazar Amos MD [address] [place], [place] [address] PCP - General Internal Medicine 04/05/23 Team Status: Inactive Member Role Status Dates Dr. Eliazar Amos MD Primary Care Provider Active Start: January 17, 2025 End: January 17, 2025 Dr. Fortunato Medina DO Emergency Provider Active Start: January 17, 2025 End: January 17, 2025 Team Status: Active Member Role/Relationship Status Dates Dr. Eliazar Amos MD Primary Care Provider Active Team Status: Inactive Member Role/Relationship Status Dates Dr. Eliazar Amos MD Primary Care Provider Active Start: January 17, 2025 End: January 17, 2025 Dr. Fortunato Medina DO Attending Provider Active Start: January 17, 2025 End: January 17, 2025 Dr. Fortunato Medina DO Emergency Provider Active Start: January 17, 2025 End: January 17, 2025 Team Status: Inactive Member Role/Relationship Status Dates Dr. Eliazar Amos MD Primary Care Provider Active Start: March 18, 2025 End: March 18, 2025 Dr. Dedrick Lagos DO Emergency Provider Activ e Start: March 18, 2025 End: March 18, 2025 Team Status: Inactive Member Role/Relationship Status Dates Dr. Eliazar Amos MD Primary Care Provider Active Start: March 20, 2025 End: March 20, 2025 Dr. Eliazar Amos MD Attending Provider Active Start: March 20, 2025 End: March 20, 2025 Dr. Eliazar Amos MD Referring Provider Active Start: March 20, 2025 End: March 20, 2025 Care Team (unrecognized sect ion and content) Care Team Personnel Name: ELIAZAR AMOS MD Member Role: Primary Care Physician Address: Address: [address] [place], [place] [address] Care Team Related Persons Name: DELORES WEST Care Team Personnel Name: ELIAZAR AMOS MD Member Role: Primary Care Physician Address: Address: [address] [place] [address] A [place], [facility] Name: DEAN LYON MD Position: ED Physician Member Role: ED Physician Address: Address: [address] [place] [address] Care Team Related Persons Name: DELORES WEST Source Comments (unrecognize d section and content) In the event this informatio n is protected by the Federal Confidentiality of Alcohol and Drug Abuse Patient Records regulations: The Federal rules restrict any use of the information to criminally investigate or prosecute any alcohol or drug abuse patient.[facility] the event this information is protected by the Federal Confidentiality of Alcohol and Drug Abuse Patient Records regulations: The Federal rules restrict any use of the information to criminally investigate or prosecute any alcohol or drug abuse patient.[facility] the event this information is protected by the Federal Confidentiality of Alcohol and Drug Abuse Patient Records regulations: The Federal rules restrict any use of the information to criminally investigate or prosecute any alcohol or drug abuse patient.[facility] the event this information is protected by the Federal Confidentiality of Alcohol and Drug Abuse Patient Records regulations: The Federal rules restrict any use of the information to criminally investigate or prosecute any alcohol or drug abuse patient.[facility] the event this information is protected by the Federal Confidentiality of Alcohol and Drug Abuse Patient Records regulations: The Federal rules restrict any use of the information to criminally investigate or prosecute any alcohol or drug abuse patient.[facility]In the event this information is protected by the Federal Confidentiality of Alcohol and Drug Abuse Patient Records regulations: The Federal rules restrict any use of the information to criminally investigate or prosecute any alcohol or drug abuse patient.[facility] the event this information is protected by the Federal Confidentiality of Alcohol and Drug Abuse Patient Records regulations: The Federal rules restrict any use of the information to criminally investigate or prosecute any alcohol or drug abuse patient.[facility] the event this information is protected by the Federal Confidentiality of Alcohol and Drug Abuse Patient Records regulations: The Federal rules restrict any use of the information to criminally investigate or prosecute any alcohol or drug abuse patient.[facility] the event this information is protected by the Federal Confidentiality of Alcohol and Drug Abuse Patient Records regulations: The Federal rules restrict any use of the information to criminally investigate or prosecute any alcohol or drug abuse patient.[facility] the event this information is protected by the Federal Confidentiality of Alcohol and Drug Abuse Patient Records regulations: The Federal rules restrict any use of the information to criminally investigate or prosecute any alcohol or drug abuse patient.[facility]In the event this information is protected by the Federal Confidentiality of Alcohol and Drug Abuse Patient Records regulations: The Federal rules restrict any use of the information to criminally investigate or prosecute any alcohol or drug abuse patient.[facility]In the event this information is protected by the Federal Confidentiality of Alcohol and Drug Abuse Patient Records regulations: The Federal rules restrict any use of the information to criminally investigate or prosecute any alcohol or drug abuse patient.[facility]In the event this information is protected by the Federal Confidentiality of Alcohol and Drug Abuse Patient Records regulations: The Federal rules restrict any use of the information to criminally investigate or prosecute any alcohol or drug abuse patient.[facility] the event this information is protected by the Federal Confidentiality of Alcohol and Drug Abuse Patient Records regulations: The Federal rules restrict any use of the information to criminally investigate or prosecute any alcohol or drug abuse patient.[facility]In the event this information is protected by the Federal Confidentiality of Alcohol and Drug Abuse Patient Records regulations: The Federal rules restrict any use of the information to criminally investigate or prosecute any alcohol or drug abuse patient.[facility]In the event this information is protected by the Federal Confidentiality of Alcohol and Drug Abuse Patient Records regulations: The Federal rules restrict any use of the information to criminally investigate or prosecute any alcohol or drug abuse patient.[facility] HospitalIn the event this information is protected by the Federal Confidentiality of Alcohol and Drug Abuse Patient Records regulations: The Federal rules restrict any use of the information to criminally investigate or prosecute any alcohol or drug abuse patient.[facility] HospitalIn the event this information is protected by the Federal Confidentiality of Alcohol and Drug Abuse Patient Records regulations: The Federal rules restrict any use of the information to criminally investigate or prosecute any alcohol or drug abuse patient.[facility]In the event this information is protected by the Federal Confidentiality of Alcohol and Drug Abuse Patient Records regulations: The Federal rules restrict any use of the information to criminally investigate or prosecute any alcohol or drug abuse patient.[facility] HospitalIn the event this information is protected by the Federal Confidentiality of Alcohol and Drug Abuse Patient Records regulations: The Federal rules restrict any use of the information to criminally investigate or prosecute any alcohol or drug abuse patient.[facility] HospitalIn the event this information is protected by the Federal Confidentiality of Alcohol and Drug Abuse Patient Records regulations: The Federal rules restrict any use of the information to criminally investigate or prosecute any alcohol or drug abuse patient.[facility] HospitalIn the event this information is protected by the Federal Confidentiality of Alcohol and Drug Abuse Patient Records regulations: The Federal rules restrict any use of the information to criminally investigate or prosecute any alcohol or drug abuse patient.[facility] HospitalIn the event this information is protected by the Federal Confidentiality of Alcohol and Drug Abuse Patient Records regulations: The Federal rules restrict any use of the information to criminally investigate or prosecute any alcohol or drug abuse patient.[facility] HospitalIn the event this information is protected by the Federal Confidentiality of Alcohol and Drug Abuse Patient Records regulations: The Federal rules restrict any use of the information to criminally investigate or prosecute any alcohol or drug abuse patient.[facility] HospitalIn the event this information is protected by the Federal Confidentiality of Alcohol and Drug Abuse Patient Records regulations: The Federal rules restrict any use of the information to criminally investigate or prosecute any alcohol or drug abuse patient.[facility] HospitalIn the event this information is protected by the Federal Confidentiality of Alcohol and Drug Abuse Patient Records regulations: The Federal rules restrict any use of the information to criminally investigate or prosecute any alcohol or drug abuse patient.[facility] HospitalIn the event this information is protected by the Federal Confidentiality of Alcohol and Drug Abuse Patient Records regulations: The Federal rules restrict any use of the information to criminally investigate or prosecute any alcohol or drug abuse patient.[facility] HospitalIn the event this information is protected by the Federal Confidentiality of Alcohol and Drug Abuse Patient Records regulations: The Federal rules restrict any use of the information to criminally investigate or prosecute any alcohol or drug abuse patient.[facility] Reason for Visit (unrecogniz ed section and content) Reason Comments Patient Question Reason Comments Diabetes Type II Neuropathy Reason Comments Med Change Request Reason Comments Results Reason Comments type 2 diabetes Reason Comments type 2 diabetes Reason Comments Radiology US Specialty Diagnoses / Procedures Referred By Contac t Referred To Contact US IMAGING Diagnoses Type II diabetes mellitus with manifestations (HCC) Procedures US THYROID/PARATHYROID US SOFT TISSUE HEAD & NECK REAL TIME IMGE Paige Littlejohn, HAND BINDER CUTTER.ELECTRICIAN SUPERVISOR [employer] [id number] [place] [address] [place] [id number] Referral ID Status Reason Start Date Expiration Date V isits Requested Visits Authorized [id number] Closed Auto-Generate d Referral 04/05/2023 05/04/2024 1 1 Reason Comments type 2 diabetes Reporting low sugar events Reason Onset Date Comments Refill Request 01/16/2024 Reason Comments Prior Authorization Unruly Please rese nd PA in 3 days, to [facility]. Not available yetDimontrose Reason Comments Medication Problem Results Prior Auth Appeal Mounle Reason Onset Date Comments Refill Request 02/20/2024 Reason Comments Medication Problem Reason Onset Date Comments Refill Request 06/26/2024 trulicity Reason Comments Nasal Congestion X 2-3 days Sore Throat Cough States it packer in h er chest when she coughs Reason Comments Flu Symptoms Cough, headache, chi lls x2 days. Reason Onset Date Comments Refill Request 09/23/2024 Reason Comments Prior Authorization freestyle test strip s Reason Comments Refill Request Reason Comments Patient Question Request medication c hange Reason Comments Appointment Office Verification Reason Comments Follow Up Reason Comments Insurance Authorization (MOUNJARO) 5 mg/ 0.5 mL Medication Problem Reason Comments Insurance Authorization OZEMPIC) 1 mg/do se (4 mg/3 mL) Reason Comments Medication Preauthorization Scheduled Active and Recently Administ ered Medications (unrecognized section and content) Medication Order 09/05/2024 09/06/2024 09/07/2024 cefuroxime (Ceftin) tablet 500 mg (COMPLETED) 500 mg, Oral, Once, On 09/07/24 at 2205, For 1 dose, Suspected Indication (Select all that apply): Head and Neck Infection 2218 (Given - Provid er: Kimberley Fonseca RN) FOR RECORDS PERTAINING TO PATIENTS WHO ARE [...] BE BASED ON THE PRIMARY CLINICAL RECORDS. [employer] [facility]. provides no warranty or guarantee of the accuracy or completeness of information in this document.
== END 2025-04-08 23:35 | disposition home or self-care (01) ==
LOC: ED 23:34
PROVIDERS: Emergency Provider Emergency Medicine; PCP Internal Medicine; Visit Provider Emergency Medicine
DX: S00.412A Abrasion of left ear, initial encounter (principal); E11.9 Type 2 diabetes mellitus without complications; I10 Essential (primary) hypertension; E78.00 Pure hypercholesterolemia, unspecified; J45.909 Unspecified asthma, uncomplicated; F17.290 Nicotine dependence, other tobacco product, uncomplicated; X58.XXXA Exposure to other specified factors, initial encounter
CPT/HCPCS: 99282

== ENCOUNTER 2025-05-16 12:14 | Emergency (ER) | payer MEDICAID, SELFPAY ==
[2025-05-16 12:14] VITALS: BP 134/85; PULSE 66; RESP 15; TEMP 37; O2SAT 99; BMI 42.7
--- NOTE | 2025-05-16 12:22 | EKG12_ITS ---
Test Reason : Blood Pressure : */* mmHG Vent. Rate : 73 BPM Atrial Rate : 73 BPM P-R Int : 186 ms QRS Dur : 94 ms QT Int : 408 ms P-R-T Axes : 41 30 29 degrees QTcB Int : 449 ms Normal sinus rhythm Normal ECG Confirmed by Galen Stone ([id number]), advertising editor ЕЛЕНА TIAN ([id number]) on 05/19/2025 1:09:13 PM Referred By: ADRIEN Confirmed By: Galen Stoen
--- NOTE | 2025-05-16 12:31 | EX.ED.DYSGE1 ---
HPI History of Present Illness Chief Complaint: Hyperglycemia Narrative Narrative: Patient is a 24-year-old female with a past medical history of diabetes, asthma, hypertension, hypercholesteremia, generalized anxiety disorder, hypertension, migraines, depression, NEELAM who presents to the emergency department chief complaint of elevated blood glucose. She states that earlier today she noted that she was not feeling well checked her blood glucose from her continuous monitor read 350 she states that she took 15 units of insulin and is now at 334. She states that she was recently discontinued Trulicity as her A1c went to 9 and this was not working. She otherwise has no complaints just feels tired. [facility] Medical History Acute back pain Upper respiratory infection Poor appetite Wears glasses Depression Anxiety Diabetes Low iron Easy bruising Injury of head and neck Migraine headache Dietary restriction Vapes nicotine containing substance Asthma Shortness of breath on exertion History of pain when walking History of edema Cardiology follow-up encounter Hypertension Gastroenteritis Screening for thyroid disorder Dermatitis Hemoptysis Cough Cubital tunnel syndrome on left Ulnar neuropathy Preoperative evaluation to rule out surgical contraindication Migraine Type 2 diabetes mellitus Post concussion syndrome Hypersomnia Left shoulder pain Thyromegaly Thyromegaly Vision problems High cholesterol Chronic back pain Right knee pain Generalized anxiety disorder with panic attacks Generalized anxiety disorder Obesity (BMI 30-39.9) Paresthesia Low back pain Shortness of breath Left ventricular noncompaction Pneumonia Asthma Essential hypertension Insomnia History of migraine Diabetes Depression Home Medications ?Medication ?Instructions ?Recorded ?Last Taken ?Type blood-glucose sensor (FeedskyStyle #1 ea 05/03/24 Unknown History Gualberto 3 Sensor device) triamcinolone acetonide 0.1 % 1 applic topical BID PRN rash #30 05/03/24 Unknown Rx topical ointment grams sumatriptan succinate 25 mg tablet See Rx Instructions PO .COMPLEX 07/19/24 Unknown Rx (Imitrex) #14 tabs hydroxyzine HCl 25 mg tablet 25 mg PO BID PRN anxiety #90 tabs 08/21/24 Unknown Rx blood sugar diagnostic (ZampleTouch #10 ea 11/06/24 Unknown History Verio test strips) blood-glucose meter (ZampleTouch #1 ea 11/06/24 Unknown History Verio Flex Meter) lancets 30 gauge (OneTouch Delica #100 ea 11/06/24 Unknown History Plus Lancet) cholecalciferol (vitamin D3) 125 125 mcg PO QDAY #90 tabs 11/15/24 Unknown Rx mcg (5,000 unit) tablet cyanocobalamin (vitamin B-12) 1,000 mcg PO QDAY #90 tabs 11/15/24 Unknown Rx 1,000 mcg tablet famotidine 40 mg tablet 40 mg PO QDAY #90 tabs 11/15/24 Unknown Rx losartan 25 mg tablet 25 mg PO QDAY #30 tabs 11/15/24 Unknown Rx albuterol sulfate 90 mcg/actuation 2 puff inhalation Q6H PRN 01/03/25 Unknown Rx aerosol inhaler Shortness Of Breath Or Wheezing #8.5 grams benzonatate 200 mg capsule 200 mg PO BID PRN cough 7 days #14 01/17/25 Unknown Rx caps cyclobenzaprine 5 mg tablet 5 mg PO TID PRN muscle spasm 3 03/18/25 Unknown Rx days #9 tabs Allergy/AdvReac Type Severity Reaction Status Date / Time vancomycin Allergy Mild Hives Verified 05/16/25 12:17 amoxicillin Allergy Unknown unknown Verified 05/16/25 12:17 azithromycin (From Zithromax Allergy Unknown unknown Verified 05/16/25 12:17 Z-Clyde) Penicillins Allergy Unknown unknown Verified 05/16/25 12:17 Family History Father No problems noted. Grandfather Diabetes Grandmother Hypertension Aunt Hypertension Other Anxiety Arthritis Asthma Depression Osteoporosis Respiratory disease Severe allergy Surgical History History of nasal cauterization History of tonsillectomy and adenoidectomy Hx of myringotomy History of nasal cauterization Social History housing: house Smoking Status: Current every day smoker tobacco type: e-cigarettes Tobacco: How many years used: 4 how long ago did patient quit smokin09/04/2020- pt vapes second hand exposure: No alcohol intake: current alcohol intake frequency: a few times a month Alcohol type: hard liquor substance use type: does not use caffeine: No what type of physical activity do you participate in: walking frequency: daily seatbelt use: sometimes additional social history: DOES NOT TAKE ASPIRIN DOES TAKE IBUPROFEN NEEDED pt admits to vaping, denies marijuana use, denies edibles ROS ROS ED ROS Narrative Constitutional: Denies any fevers, chills, headaches Cardiovascular: Denies chest pain or palpitations Respiratory: Denies coughing wheezing shortness of breath Abdomen: Denies abdominal pain nausea vomiting diarrhea : Denies any urinary symptoms Neurological: Denies any numbness, weakness, tingling Musculoskeletal: Denies back pain Skin: Denies any rashes or lesions EXAM Physical Exam Narrative Exam Narrative: General: Patient was lying in bed resting comfortably did not appear to be in acute distress Head: Atraumatic, normocephalic Eyes: PERRL bilaterally, EOMI bilaterally, no conjunctival injection noted Neck: Soft, supple, trachea midline Cardiovascular: Regular rate and rhythm no murmurs gallops rubs noted Respiratory: Clear to auscultation bilaterally Abdomen: Soft, nondistended, no tenderness to palpation Extremities: +5/5 strength noted in the bilateral lower extremities Neurological: Patient foot commands and that she was at [facility] year is 2024 Skin: Warm, dry, intact no rashes lesions noted Const Vital Signs: 05/16/25 12:14 05/16/25 12:14 Temperature 98.6 F Temperature Source Oral Pulse Rate 66 Respiratory Rate 15 Respiratory Effort Normal Non-Labored Respiratory Pattern Normal Blood Pressure 134/85 H Blood Pressure Mean 101 Pulse Ox 99 Oxygen Delivery Method Room Air MDM MDM MDM Narrative Medical decision making narrative: Patient is a 24-year-old female who presents to the emergency department with concern for hyperglycemia. On the differential diagnose includes but not limited to hyperglycemia, DKA, HHS, UTI, . Once workup is obtained and reviewed she will be reevaluated. Patient be given IV fluids. Patient's CBC reviewed showed a white blood count is normal at 7.6, hemoglobin stable 13.4, platelet count normal at 268. Patient's venous blood gas showed a pH 7.38, sodium normal 137, potassium of 4 anion gap was normal at 11. Patient's AST and ALT were 35 and 47 respectively total bilirubin normal at 0.24. Patient lipase normal at 42, beta-hydroxybutyrate normal at 0.2 test negative. Patient urinalysis reviewed and showed no evidence of infection. Patient was given additional IV fluids Patient's repeat blood glucose was noted be 195. Patient was reevaluated and feels much improved and like to go home at this point time. She advised to follow-up with her doctors in outpatient setting and return with worsening symptoms or any concerns. She is agreeable this plan all course concerns answered she was discharged home in stable condition. Lab Data Labs: Laboratory Results - last 24 hr 05/16/25 05/16/25 12:27 12:32 WBC 7.6 RBC 4.03 L Hgb 13.4 Hct 38.2 MCV 94.8 MCH 33.3 H MCHC 35.1 RDW Std Deviation 39.8 RDW Coeff of [place] 11.7 Plt Count 268 MPV 9.2 Immature Gran % (Auto) 0.300 Neut % (Auto) 66.8 Lymph % (Auto) 27.3 [place] % (Auto) 4.2 Eos % (Auto) 1.1 Baso % (Auto) 0.3 Absolute Neuts (auto) 5.1 Absolute Lymphs (auto) 2.08 Nucleated RBC % 0 Sodium 137 Potassium 4.0 Chloride 101 Carbon Dioxide 25.0 Anion Gap 11 BUN 8 Creatinine 0.77 Estim Creat Clear Calc 171.57 Est GFR (MDRD) Non-Af 108 BUN/Creatinine Ratio 10.7 Glucose 337 H Lactic Acid 1.4 Calcium 9.2 Total Bilirubin 0.24 AST 35 H ALT 47 H Alkaline Phosphatase 65 Total Protein 6.6 Albumin 3.9 Globulin 2.7 Albumin/Globulin Ratio 1.5 Lipase 42 b-Hydroxybutyric mmol/L 0.2 Serum , Qual NEGATIVE Urine Color Yellow Urine Clarity Clear Urine pH 6.5 Ur Specific [place] 1.010 Urine Protein Negative Urine Glucose (UA) 1000 H Urine Ketones 15 H Urine Occult Blood Negative Urine Nitrite Negative Urine Bilirubin Negative Urine Urobilinogen Normal Ur Leukocyte Esterase Negative Urine RBC 0 SEEN Urine WBC 0-5 SEEN Ur Squamous Epith Cells 0-5 SEEN Urine Bacteria 0 SEEN Urine Mucus 0 SEEN ABG Data ABG results: ABG 05/16/25 12:50 Specimen Type JULY Sample Site Not entered O2 % 21.0 VBG pH 7.38 VBG pO2 37 VBG HCO3 32 H VBG Total CO2 33 VBG O2 Sat (Calc) 69 VBG Base Excess 7 H POC Mix VBG pCO2 Pt Tmp 52.7 H O2 Delivery Device Not entered Discharge Plan Triage Chief Complaint: Hyperglycemia ED Provider: Santizo,Shlomo Dx/Rx/DC Orders Clinical Impression: Generalized anxiety disorder, Diabetes, Hyperglycemia Prescriptions: No Action (DME) FreeStyle Gualberto 3 Sensor Device See Rx Instructions .ROUTE .MEDSUPPLY Qty: 1 Patient Comments: [NO ORIGINAL SIG] Rx Instructions: As directed triamcinolone acetonide 0.1 % ointment 1 applic topical BID PRN (Reason: rash) Qty: 30 1RF sumatriptan succinate [Imitrex] 25 mg tablet See Rx Instructions PO .COMPLEX Qty: 14 2RF Rx Instructions: take 1 tab at onset of headache; if no relief may repeat 1 tab after at least 2 hrs; max = 4 tabs/24 hr PO losartan 25 mg tablet 25 mg PO QDAY Qty: 30 3RF famotidine 40 mg tablet 40 mg PO QDAY Qty: 90 1RF cholecalciferol (vitamin D3) 125 mcg (5,000 unit) tablet 125 mcg PO QDAY Qty: 90 1RF cyanocobalamin (vitamin B-12) 1,000 mcg tablet 1,000 mcg PO QDAY Qty: 90 1RF (DME) blood-glucose meter [OneTouch Verio Flex meter] Misc See Rx Instructions .ROUTE .MEDSUPPLY Qty: 1 Rx Instructions: As directed (DME) OneTouch Verio test strips Strip See Rx Instructions .ROUTE BID Qty: 10 Rx Instructions: As directed (DME) lancets [OneTouch Delica Plus Lancet] 30 gauge misc See Rx Instructions .ROUTE BID Qty: 100 Rx Instructions: As directed benzonatate 200 mg capsule 200 mg PO BID PRN (Reason: cough) 7 Days Qty: 14 0RF cyclobenzaprine 5 mg tablet 5 mg PO TID PRN (Reason: muscle spasm) 3 Days Qty: 9 0RF hydroxyzine HCl 25 mg tablet 25 mg PO BID PRN (Reason: anxiety) Qty: 90 1RF albuterol sulfate 90 mcg/actuation HFA aerosol inhaler 2 puff INHALATION Q6H PRN (Reason: Shortness Of Breath Or Wheezing) Qty: 8.5 1RF Primary Care Provider: Delma Amos Referrals: Delma Amos MD [Primary Care Provider] - Activity Restrictions/Additional Instructions: Follow-up your doctor in outpatient setting. Return with worsening symptoms or any concerns. Your blood work did not show any evidence of DKA here in the emergency department. Print Language: Stateless Disposition Disposition: Home, Self Care
[2025-05-16 12:36] LABS: Mucous, Urine 0 SEEN /hpf (<or=2+); Red Blood Cells-Urine 0 SEEN /hpf (0-5)
[2025-05-16 12:36] LABS: Hematocrit 38.2 % (37-47); Hemoglobin 13.4 g/dL (12.0-15.0); Immature Granulocytes Count 0.020 X10^3/uL (0.0-0.0); Mean Corp Hgb Conc 35.1 g/dL (32-36); Mean Corpuscular Volume 94.8 fL (81-99); Mean Platelet Vol. 9.2 fl (6.2-12.0); NRBC Flagged by Analyzer 0 % (0-5); Platelet Count 268 K/mm3 (150-450); RBC Distribution Width CV 11.7 % (11.6-14.6); RBC Distribution Width SD 39.8 fl (35.1-43.9); Red Blood Count 4.03 M/mm3 (4.2-5.4); White Blood Count 7.6 K/mm3 (4.4-11.0)
[2025-05-16] MEDS: 0.9% Normal Saline (1000mL) 1,000 ML 999 ML IV ×2 (12:36→13:15)
[2025-05-16 12:53] LABS: FI02 21.0; SITE Not entered; VBG BASE EXCESS 7 mmol/L (-1.0-3.5); VBG PO2 37 mmHg (25-40); VBG SO2 69 % (50-70); VBG TCO2 33 mmol/L (23-33)
[2025-05-16 12:59] LABS: Internal QC Validated? YES +Cl - CLEAR BKGD; Pregnancy, Serum, hCG Quali. NEGATIVE Negative; Record Kit Lot#, Serum Preg. 0000964736
[2025-05-16 13:02] LABS: Color, Urine Yellow (Yellow); Glucose, Dipstick 1000 mg/dl (Normal); Ketone-Dipstick 15 mg/dl (Negative); Leukocyte Esterase-Dipstick Negative /ul (Negative); Nitrite-Dipstick Negative (Negative); Occult Blood-Urine Negative /ul (Negative); Protein-Dipstick Negative (Negative); Specific Gravity, Urine 1.010 (1.002-1.030); Urine Bilirubin Dipstick Negative (Negative)
[2025-05-16 13:03] LABS: AST(SGOT) 35 U/L (<=31); Alanine Aminotransfer ALT/SGPT 47 U/L (<=34); Albumin, Serum 3.9 g/dL (3.5-5.0); Alkaline Phosphatase 65 U/L (35-104); Anion Gap 11 (5-15); BETA-HYDROXYBUTYRATE 0.2 mmol/L (0.0-0.3); BUN 8 mg/dL (4-19); BUN/Creat Ratio 10.7 RATIO (10-20); Calcium,Total 9.2 mg/dL (7.6-11.0); Carbon Dioxide 25.0 mmol/L (21.0-32.0); Chloride 101 mmol/L (98-108); Estimated Creatinine Clearance 171.57 ml/min (50-250); Globulin 2.7 g/dL (2.2-4.2); Glucose 337 mg/dL (70-99); Lipase 42 U/L (13-75); Potassium 4.0 mmol/L (3.3-5.1)
[2025-05-16 13:24] LABS: Squamous Epithelial Cells - UA 0-5 SEEN /hpf (5-10)
[2025-05-16 14:14] VITALS: BP 132/80; PULSE 70; RESP 16; O2SAT 98
[2025-05-16 14:53] VITALS: BP 132/80; PULSE 70; RESP 16; TEMP 36.8; O2SAT 98
== END 2025-05-16 15:01 | disposition home or self-care (01) ==
PROVIDERS: Emergency Provider Emergency Medicine; PCP Internal Medicine; Visit Provider Emergency Medicine
DX: F41.1 Generalized anxiety disorder (principal); E11.65 Type 2 diabetes mellitus with hyperglycemia; Z79.4 Long term (current) use of insulin; I10 Essential (primary) hypertension; E78.00 Pure hypercholesterolemia, unspecified; J45.909 Unspecified asthma, uncomplicated; F17.290 Nicotine dependence, other tobacco product, uncomplicated
CPT/HCPCS: 80053; 81001; 82010; 82803; 82962; 83605; 83690; 84703; 85025; 93005; 96360; 96361; 99285

== ENCOUNTER 2025-05-30 00:02 | Emergency (ER) | payer MEDICAID, SELFPAY ==
[2025-05-30 00:04] VITALS: BP 160/104; PULSE 53; RESP 18; TEMP 36.8; O2SAT 99
--- NOTE | 2025-05-30 00:43 | ED.RN ---
Addendum entered by Jacki Santiago 05/30/25 00:49: This RN explained to the patient that her oxygen saturation is 99%, which is reassuring. The patient is informed on waiting for the doctor and this RN apologizes for the long wait times d/t the high volume of patients in the ED. Original Note: Pt called this RN into the room to state that she could not breathe and that she was having a panic attack so she took her prn pills for her panic attacks, which were two 10mg tablets of hydroxyzine. The patient states this while the patient is lying comfortably in the bed, without labored breathing or tachypnea. This RN reassured the patient that her oxygen levels were within normal limits.
[2025-05-30 00:47] VITALS: BP 151/83; PULSE 62; RESP 16; O2SAT 99
--- OUTSIDE RECORDS SUMMARY | 2025-05-30 00:57 | XMS RPT_ITS | CCD ---
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 Normal 98-108 [facility] Comment on above: Performed By: #### L 503.6005, L100.0100, L700.6800, L500.4050, L501.6901, L501.2450 #### [facility] [address] [place], [address] CO2 [Moles/Vol] 25.0 mmol/L Normal 21.0-32.0 [facility] Comment on above: Performed By: #### L 503.6005, L100.0100, L700.6800, L500.4050, L501.6901, L501.2450 #### [facility] [address] [place], [address] Creatinine [Mass/Vol] 0.77 mg/dL Normal 0.70-1.20 [facility] Comment on above: Performed By: #### L 503.6005, L100.0100, L700.6800, L500.4050, L501.6901, L501.2450 #### [facility] [address] [place], [address] ECRCL 171.57 ml/min Normal 50-250 [facility] Comment on above: Performed By: #### L 503.6005, L100.0100, L700.6800, L500.4050, L501.6901, L501.2450 #### [facility] [address] [place], [address] GAP 11 Normal 5-15 [facility] Comment on above: Performed By: #### L 503.6005, L100.0100, L700.6800, L500.4050, L501.6901, L501.2450 #### [facility] [address] [place], [address] GFR/1.73 sq M.predicted among non-blacks MDRD (S/P/Bld) [Vol rate/Area] 108 mL/min/{1.73_m2} Normal >60 [facility] Comment on above: Result Comment: mL/m in/1.73m2 CKD-EPI Creatinine Equation (2020) Performed By: #### L 503.6005, L100.0100, L700.6800, L500.4050, L501.6901, L501.2450 #### [facility] [address] [place], [address] Globulin (S) [Mass/Vol] 2.7 g/dL Normal 2.2-4.2 [facility] Comment on above: Performed By: #### L 503.6005, L100.0100, L700.6800, L500.4050, L501.6901, L501.2450 #### [facility] [address] [place], [address] Glucose [Mass/Vol] 337 mg/dL High 70-99 [facility] Comment on above: Performed By: #### L 503.6005, L100.0100, L700.6800, L500.4050, L501.6901, L501.2450 #### [facility] [address] [place], [address] Potassium [Moles/Vol] 4.0 mmol/L Normal 3.3-5.1 [facility] Comment on above: Performed By: #### L 503.6005, L100.0100, L700.6800, L500.4050, L501.6901, L501.2450 #### [facility] [address] [place], [address] Sodium [Moles/Vol] 137 mmol/L Normal 133-145 [facility] Comment on above: Performed By: #### L 503.6005, L100.0100, L700.6800, L500.4050, L501.6901, L501.2450 #### [facility] [address] [place], [address] T PROT 6.6 g/dL Normal 5.9-8.4 [facility] Comment on above: Performed By: #### L 503.6005, L100.0100, L700.6800, L500.4050, L501.6901, L501.2450 #### [facility] [address], [address] Urea nitrogen [Mass/Vol] 8 mg/dL Normal 4-19 [facility] Comment on above: Performed By: #### L 503.6005, L100.0100, L700.6800, L500.4050, L501.6901, L501.2450 #### [facility] [address] [place], [address] Emergency Department Summary on 05-16-2025 Emergency Department Summary [facility] Medical Records Department [address] [place] [address] Emergency Department Summary 05/16/25 MR#: [id number] Acct: [id number] Name: SUGEY WEST Rep #: [id number] : 2000 24 From: Shlomo Santizo DO PCP: Dr. Eliazar Amos MD Status:REG ER Location: ED ADDENDUM by Dr. Shlomo Santizo DO on 05/16/25 at 1443 Patient is EKG reviewed showed sinus rhythm rate of 73 bpm with MO interval 186 05/16/25 1443 Cosigner Signature (if applicable): cc: Dr. Eliazar Amos MD * Signed HPI History of Present Illness Chief Complaint: Hyperglycemia Narrative Narrative: Patient is a 24-year-old female with a past medical history of diabetes, asthma, hypertension, hypercholesteremia, generalized anxiety disorder, hypertension, migraines, depression, NEELAM who presents to the emergency department chief complaint of elevated blood glucose. She states that earlier today she noted that she was not feeling well checked her blood glucose from her continuous monitor read 350 she states that she took 15 units of insulin and is now at 334. She states that she was recently discontinued Trulicity as her A1c went to 9 and this was not working. She otherwise has no complaints just feels tired. [facility] Medical History Acute back pain Upper respiratory infection Poor [...] PRN anxiety #90 tabs 08/21/24 Unknown Rx blood sugar diagnostic (OneTouch #10 ea 11/06/24 Unknown History Verio test strips) blood-glucose meter (OneTouch #1 ea 11/06/24 Unknown History Verio Flex Meter) lancets 30 gauge (OneTouch Delica #100 ea 11/06/24 Unknown History Plus Lancet) cholecalciferol (vitamin D3) 125 125 mcg PO QDAY #90 tabs 11/15/24 Unknown Rx mcg (5,000 unit) tablet cyanocobalamin (vitamin B-12) 1,000 mcg PO QDAY #90 tabs 5 Unknown Rx 1,000 mcg tablet famotidine 40 mg tablet 40 mg PO QDAY #90 tabs 11/15/24 Un known Rx losartan 25 mg tablet 25 mg PO QDAY #30 tabs 11/15/24 Un known Rx albuterol sulfate 90 mcg/actuation 2 puff inhalation Q6H PRN Unknown Rx aerosol inhaler Shortness Of Breath Or Wheezing #8.5 grams benzonatate 200 mg capsule 200 mg PO BID PRN cough 7 days #14 01/17/25 Unknown Rx caps cyclobenzaprine 5 mg tablet 5 mg PO TID PRN muscle spasm 3 Unknown Rx days #9 tabs Allergy/AdvReac Type Severity Reaction Status Date / Time vancomycin Allergy Mild Hives Verified 05/16/25 12:17 amoxicillin Allergy Unknown unknown Verified 05/16/25 12:17 azithromycin (From Zithromax Allergy Unknown unknown Verified 05/16/25 12:17 Z-Clyde) Penicillins Allergy Unknown unknown Verified 05/16/25 12:17 Family History Father No problems noted. Grandfather Diabetes Grandmother Hypertension Aunt Hypertension Other Anxiety Arthritis Asthma Depression Osteoporosis Respiratory disease Severe allergy Surgical History History of nasal cauterization History of tonsillectomy and adenoidectomy Hx of myringotomy History of nasal cauterization Social History housing: house Smoking Status: Current every day smoker tobacco type: e-ciga (more content not included)... Normal [facility] Eosinophil percentageOrdered By: Shlomo Santizo on 05-16-2025 Eosinophils/100 WBC (Bld) 1.1 % 0-5 [facility] Erythrocyte distribution wid th ratioOrdered By: Shlomo Santizo on 05-16-2025 Erythrocyte distribution width (RBC) [Ratio] 11.7 % 11.6-14.6 [facility] Erythrocyte distribution wid th standard deviationOrdered By: Shlomo Santizo on 05-16-2025 Erythrocyte distribution width (RBC) [Ratio] 39.8 fl 35.1-43.9 [facility] Glomerular filtration rate ( GFR) estimation/1.73 sq m using serum, plasma, or whole bOrdered By: Shlomo Santizo on 05-16-2025 GFR/1.73 sq M.predicted among non-blacks MDRD (S/P/Bld) [Vol rate/Area] 108 mL/min/{1.73_m2} >60 [facility] Comment on above: mL/min/1.73m2 CKD-EP I Creatinine Equation (2020) [facility]ucose [facility] deOrdered By: Shlomo Santizo on 05-16-2025 Glucose [Mass/Vol] 195 mg/dL High 74-106 [facility] Comment on above: MANAGEMENT OF PATIEN T CARE PER NURSING PROTOCOL Hematocrit Auto (Bld) [Volum e fraction]Ordered By: Shlomo Santizo on 05-16-2025 Hematocrit (Bld) [Volume fraction] 38.2 % 37-47 [facility] Hemoglobin measurementOrdere d By: Shlomo Santizo on 05-16-2025 Hemoglobin (Bld) [Mass/Vol] 13.4 g/dL 12.0-15.0 [facility] Immature granulocytes/100 WB C Auto (Bld)Ordered By: Shlomo Santizo on 05-16-2025 Immature granulocytes/100 WBC (Bld) 0.300 % 0.0-0.9 [facility] Comment on above: IG% - Immature Granu locytes (promyelocytes, myelocytes and metamyelocytes) > 1% indicates that a LEFT SHIFT is Present. Ketones Test strip Ql (U)Ord ered By: Shlomo Santizo on 05-16-2025 Ketones Ql (U) 15 mg/dl High Negative [facility] - Chemistry and C hemistry - challengeOrdered By: Shlomo Santizo on 05-16-2025 AST [Catalytic activity/Vol] 35 U/L High <32 [facility] Lactic Acidon 05-16-2025 Lactate [Moles/Vol] 1.4 mmol/L Normal 0.0-2.0 [facility] Comment on above: Order Comment: Y Performed By: #### L 503.6005, L100.0100, L700.6800, L500.4050, L501.6901, L501.2450 #### [facility] [address] [place], [place], [address] Lactic acid measurementOrder ed By: Shlomo Santizo on 05-16-2025 Lactate [Moles/Vol] 1.4 mmol/L 0.0-2.0 [facility] Lipaseon 05-16-2025 Lipase [Catalytic activity/Vol] 42 U/L Normal 13- [facility] Comment on above: Result Comment: Plea se note: LIPASE revised reference range effective 22. New Lipase methodology. Expected to produce lower values than the previous assay method. NEW Reference Range: 13 - 75 U/L Performed By: #### L 503.6005, L100.0100, L700.6800, L500.4050, L501.6901, L501.2450 ####[facility] [address] [place], [place], [id number] Lipase measurementOrdered By : Shlomo Santizo on 05-16-2025 Lipase [Catalytic activity/Vol] 42 U/L 13-75 [facility] Comment on above: Please note:LIPASE r evised reference range effective 22. New Lipase methodology. Expected to produce lower values than the previous assay method. NEW Reference Range: 13 - 75 U/L MCV (mean corpuscular volume ) determinationOrdered By: Shlomo Santizo on 05-16-2025 MCV (RBC) [Entitic vol] 94.8 fL 81-99 [facility] Mean corpuscular hemoglobin (MCH) determinationOrdered By: Shlomo Santizo on 05-16-2025 MCH (RBC) [Entitic mass] 33.3 pg High 27.0-32.0 [facility] Mean corpuscular hemoglobin concentration (MCHC) determinationOrdered By: Shlomo Santizo on 05-16-2025 MCHC (RBC) [Mass/Vol] 35.1 g/dL 32-36 [facility] Mean platelet volume determi nationOrdered By: Shlomo Santizo on 05-16-2025 Platelet mean volume (Bld) [Entitic vol] 9.2 fL 6.2-12.0 [facility] Microscopic analysis of urin e for red blood cells (RBC)Ordered By: Shlomo Santizo on 05-16-2025 Microscopic analysis of urine for red blood cells (RBC) 0 SEEN /hpf 0-5 [facility] Monocyte percentageOrdered B y: Shlomo Santizo on 05-16-2025 Monocytes/100 WBC (Bld) 4.2 % 0-10 [facility] Mucus LM Ql (Urine sed)Order ed By: Shlomo Santizo on 05-16-2025 Mucus Ql (Urine sed) 0 SEEN /hpf [facility] Neutrophil percentageOrdered By: Shlomo Santizo on 05-16-2025 Neutrophils/100 WBC (Bld) 66.8 % 47-70 [facility] Nitrite Test strip Ql (U)Ord ered By: Shlomo Santizo on 05-16-2025 Nitrite Ql (U) Negative Negative [facility] No Panel InformationOrdered By: Shlomo Santizo on 05-16-2025 Blood Gas Sample Site Not entered [facility] Blood Gas Specimen Type JULY [facility] Oxygen Delivery Device Not entered [facility] Nucleated red blood cell per centageOrdered By: Shlomo Santizo on 05-16-2025 Nucleated RBC/100 WBC (Bld) [Ratio] 0 % 0-5 [facility] Platelet countOrdered By: Armando Santizo on 05-16-2025 Platelets (Bld) [#/Vol] 268 10*3/uL 150-450 [facility] Potassium measurement (mass/ volume)Ordered By: Shlomo Santizo on 05-16-2025 Potassium (Unsp spec) [Mass/Vol] 4.0 mmol/L 3.3-5.1 [facility] ,Serum,hCG Quali.on 05-16-2025 HCG, SERUM QUAL Negative Normal [facility] Comment on above: Performed By: #### L 503.6005, L100.0100, L700.6800, L500.4050, L501.6901, L501.2450 #### [facility] [address] [place], [place], [id number] Protein Test strip Ql (U)Ord ered By: Shlomo Santizo on 05-16-2025 Protein Ql (U) Negative Negative [facility] RBC Auto (Bld) [#/Vol]Ordere d By: Shlomo Santizo on 05-16-2025 RBC (Bld) [#/Vol] 4.03 10*6/uL Low 4.2-5.4 [facility] Serum beta-hCG test, qualita tiveOrdered By: Shlomo Santizo on 05-16-2025 Beta HCG ( test) Ql Negative [facility] Serum creatinine measurement (mass/volume)Ordered By: Shlomo Santizo on 05-16-2025 Creatinine [Mass/Vol] 0.77 mg/dL 0.70-1.20 [facility] Serum globulin measurementOr dered By: Shlomo Santizo on 05-16-2025 Globulin (S) [Mass/Vol] 2.7 g/dL 2.2-4.2 [facility] Serum glucose measurement (m ass/volume)Ordered By: Shlomo Santizo on 05-16-2025 Glucose [Mass/Vol] 337 mg/dL High 70-99 [facility] Serum or plasma alanine shultz otransferase (ALT) measurementOrdered By: Shlomo Santizo on 05-16-2025 ALT [Catalytic activity/Vol] 47 U/L High <35 [facility] Serum or plasma albumin jalyn urement (mass/volume)Ordered By: Shlomo Santizo on 05-16-2025 Albumin [Mass/Vol] 3.9 g/dL 3.5-5.0 [facility] Serum or plasma albumin/glob ulin mass ratioOrdered By: Shlomo Santizo on 05-16-2025 Albumin/Globulin [Mass ratio] 1.5 {ratio} 0.9-2.4 [facility] Serum or plasma alkaline julio sphatase measurementOrdered By: Shlomo Santizo on 05-16-2025 ALP [Catalytic activity/Vol] 65 U/L 35-104 [facility] Serum or plasma calcium jalyn urement (mass/volume)Ordered By: Shlomo Santizo on 05-16-2025 Calcium [Mass/Vol] 9.2 mg/dL 7.6-11.0 [facility] Serum or plasma urea nitroge n measurement (mass/volume)Ordered By: Shlomo Santizo on 05-16-2025 Urea nitrogen [Mass/Vol] 8 mg/dL 4-19 [facility] Sodium levelOrdered By: Josh Santizo on 05-16-2025 Sodium [Moles/Vol] 137 mmol/L 133-145 [facility] Squamous epithelial cells de tection in urine sediment by light microscopyOrdered By: Shlomo Santizo on 05-16-2025 Epithelial cells.squamous LM Ql (Urine sed) 0-5 SEEN /hpf - [facility] Total proteinOrdered By: Kush Santizo on 05-16-2025 Protein [Mass/Vol] 6.6 g/dL 5.9-8.4 [facility] Urinalysis, Completeon 05-16 EPI,SQUAMOUS 0-5 SEEN Normal - [facility] Comment on above: Order Comment: CLEAN CATCH Performed By: #### L 400.0001 ####[facility] [address] [place], [place], [id number] WBC 0-5 SEEN Normal 0-5 [facility] Comment on above: Order Comment: CLEAN CATCH Performed By: #### L 400.0001 ####[facility] [address] [place], [address] BACTERIA 0 SEEN Normal None Seen [facility] Comment on above: Order Comment: CLEAN CATCH Performed By: #### L 400.0001 ####[facility] [address] [place], [address] Mucus Ql (Urine sed) 0 SEEN Normal [facility] Comment on above: Order Comment: CLEAN CATCH Performed By: #### L 400.0001 ####[facility] [address] [place], [address] RBC 0 SEEN Normal 0-5 [facility] Comment on above: Order Comment: CLEAN CATCH Performed By: #### L 400.0001 ####[facility] [address] [place], [place], [address] Urine clarityOrdered By: Kush Santizo on 05-16-2025 Clarity (U) Clear Clear [facility] Urine color determinationOrd ered By: Shlomo Santizo on 05-16-2025 Color (U) Yellow Yellow [facility] Urine glucose detectionOrder ed By: Shlomo Santizo on 05-16-2025 Glucose Ql (U) 1000 mg/dl High Normal [facility] Urine leukocyte esterase det ection by dipstickOrdered By: Shlomo Santizo on 05-16-2025 Leukocyte esterase Test strip Ql (U) Negative Negative [facility] Urine pHOrdered By: Shlomo walls on 05-16-2025 pH (U) 6.5 [pH] 5.0 - 8.0 [facility] Urine sediment bacteria coun t by microscopy (number/high power field)Ordered By: Shlomo Santizo on 05-16-2025 Bacteria LM.HPF (Urine sed) [#/Area] 0 /[HPF] None Seen [facility] Urine specific gravity measu rementOrdered By: Shlomo Santizo on 05-16-2025 Specific gravity (U) [Rel density] 1.010 1.002-1.030 [facility] Urine urobilinogen measureme ntOrdered By: Shlomo Santizo on 05-16-2025 Urobilinogen Ql (U) Normal mg/dl Normal [facility] Venous Blood Gason Blood Gas Type JULY Normal [facility] Comment on above: Performed By: #### L 9000.0810 #### [facility] [address] [place], [address] CO2 [Moles/Vol] 33 mmol/L Normal 23-33 [facility] Comment on above: Performed By: #### L 9000.0810 #### [facility] [address] [place], [address] FI02 21.0 Normal [facility] Comment on above: Performed By: #### L 9000.0810 #### [facility] [address] [place], [address] HCO3 (Bld) [Moles/Vol] 32 mmol/L High 22-26 [facility] Comment on above: Performed By: #### L 9000.0810 #### [facility] [address] [place], [address] O2 Delivery Dev Not entered Normal [facility] Comment on above: Performed By: #### L 9000.0810 #### [facility] [address] [place], [address] SITE Not entered [facility] Comment on above: Performed By: #### L 9000.0810 #### [facility] [address] [place], [address] VBG BE 7 mmol/L High -1.0-3.5 [facility] Comment on above: Performed By: #### L 9000.0810 #### [facility] [address] [place], [address] VBG pCO2 52.7 mmHg High 41-51 [facility] Comment on above: Performed By: #### L 9000.0810 #### [facility] [address] [place], [address] VBG pH 7.38 Normal 7.32-7.42 [facility] Comment on above: Performed By: #### L 9000.0810 #### [facility] [address] [place], [place], [address] VBG PO2 37 mmHg Normal 25-40 [facility] Comment on above: Performed By: #### L 9000.0810 #### [facility] [address] [place], [place], [address] VBG SO2 69 Normal 50-70 [facility] Comment on above: Performed By: #### L 9000.0810 #### [facility] [address] [place], [place], [id number] Venous blood base excess silvestre surementOrdered By: Shlomo Santizo on 05-16-2025 Base excess Calc (BldV) [Moles/Vol] 7 mmol/L High -1.0-3.5 [facility] Venous blood bicarbonate silvestre surementOrdered By: Shlomo Santizo on 05-16-2025 HCO3 (Bld) [Moles/Vol] 32 mmol/L High 22-26 [facility] Venous blood oxygen saturati on measurementOrdered By: Shlomo Santizo on 05-16-2025 Oxygen saturation in Blood 69 % 50-70 [facility] Venous blood pH measurementO rdered By: Shlomo Santizo on 05-16-2025 pH (BldV) 7.38 [pH] 7.32-7.42 [facility] Venous blood partial pressur e of carbon dioxide measurementOrdered By: Shlomo Santizo on 05-16-2025 CO2 (BldV) [Partial pressure] 52.7 mm[Hg] High 41-51 [facility] Venous blood partial pressur e of oxygen measurementOrdered By: Shlomo Santizo on 05-16-2025 Oxygen (BldV) [Partial pressure] 37 mm[Hg] 25-40 [facility] White blood cell (WBC) count Ordered By: Shlomo Santizo on 05-16-2025 WBC (Bld) [#/Vol] 7.6 10*3/uL 4.4-11.0 [facility] White blood cell countOrdere d By: Shlomo Santizo on 05-16-2025 White blood cell count 0-5 SEEN /hpf 0-5 [facility] CNNURSEon 05-07-2025 CNNURSE Nurse Visit (ENDIMT) SUGEY WEST ([id number]) 2000 F CHT Date Time Provider Department 05/07/25 3:00 PM DULCE SMITH During your visit today, we recorded the following information about you: Dulce Smith, RN 05/07/2025 3:31 PM Signed DIABETES CARE AND EDUCATION VISIT Location: [place] Type of visit: In person individual PATIENT'S MAIN CONCERN TODAY: Learn more Support person present for education today: none Cognitive ability: Alert and oriented Motivation to learn: Interested Learning barriers identified by educator: none Method of instruction: written, verbal, and demonstration Pre-pump Training Assessment - patient is interested in pursuing either Omnipod pump or a Medtronic InPen - encouraged her to begin making a food log and to follow up with office as her blood sugar/insulin needs become more consistent and we can assess her skill at carb counting based on logs Current CGM: Telerivetstyle Jazmin 3+ In need of training for CGM: No Reports she has used Omnipod Current insulin therapy : Injection - restarting today on basal/bolus Estimated total daily dose (TDD): 45 units + 30 units base to start, will need to titrate up Current use of I:C ratio: YES/NO: No - reports she has done carb counting in past Current correction scale: YES/NO: Yes Understanding of basic insulin pump: Basal/bolus, Insulin action time, IOB, I:C ratio, Meal/correction bolus, Correction factor/Insulin sensitivity, Blood glucose targets: YES/NO: Yes Reviewed insulin pen instructions with pat HANDOUTS: Healthy You: Survival Skills and Healthy You: Planning Healthy Meals LEARNING RESPONSE: Taking medications: Demonstrated understanding/competenc y today or at previous visit Monitoring glucose: Demonstrated understanding/competenc y today or at previous visit POSSIBLE FUTURE TOPICS: 1. DIABETES CARE AND EDUCATION PLAN: Education completed and annual diabetes education follow-up visit recommended Time Spent (Minutes): 30 This visit note will be communicated to the healthcare provider via access to shared medical record. SIGNATURE: Dulce Smith RN PATIENT NAME: Sugey West DATE: May 07, 2025 TIME: 2:54 PM Allergies As of Date: 05/07/2025 Noted Allergy Reaction AMOXICILLIN 04/05/2023 16 - Unknown PENICILLINS 04/05/2023 16 - Unknown SEASONAL ALLERGIES 12/10/2012 14 - Other: See Comments Comments: sneezing, watery eyes, tired ZITHROMAX (AZITHROMYCIN) 05/12/2008 8 - GI Upset Date Reviewed: 05/07/2025 Reviewed by: Yumiko Garcia LPN - Fully Assessed Visit Diagnosis:Diabetes mellitus treated with injections of non-insulin medication (HCC) [E11.9, Z79.85] Order(s):ENDOCRINOLOGY DIETITIAN VISIT (MNT) [[id number]] Order #: [id number]: 4 Prescriptions as of 05/07/2025 - dulaglutide (TRULICITY) 1.5 mg/0.5 mL pen injector Inject 1.5 mg subcutaneously one time a week. - insulin glargine U-300 conc (TOUJEO MAX U-300 SOLOSTAR) 300 unit/mL (3 mL) inpn Inject 30 units daily - can increase by 2 units each week until morning sugar 130 then stay at that dose - insulin lispro (HUMALOG KWIKPEN INSULIN) 100 unit/mL Inject 15 units with meals PLUS Sliding scale #2 (2 extra units for every 50 over 150) ~ 60 units - Insulin Sanford, Disposable, (BD ULTRAFINE III MINI PEN) 31 gauge x 3/16 Uses 4 per day with insulin injection E11.9 - metFORMIN ER (GLUCOPHAGE XR) 500 [...] # 30 gram(s), 0 Refill(s), [facility]: [id number], 177.5, cm, 03/13/23 10:35:00 EDT, Height, 117.5 - SUMAtriptan (IMITREX) 50 mg tablet TAKE 1 TABLET BY MOUTH EVERY 2 HOURS NEEDED FOR HEADACHE. MAX DOSE OF 2 TABLETS A DAY - cyclobenzaprine (FLEXERIL) 10 mg tablet Take 10 mg by mouth three times daily. prn - sertraline (ZOLOFT) 25 mg tablet Take 25 mg by mouth once daily. - loratadine 10 mg ORAL Cap Take by mouth. - albuterol HFA 90 mcg/Actuation INHALATION inhaler Inhale 2 Puffs as instruc (more content not included)... Normal [facility] CNOVon 05-07-2025 CNOV Office Visit (ENWSTR ) SUGEY WEST ([id number]) 2000 F T Date Time Provider Department 05/07/25 2:45 PM PAIGE MULLER ENWSTR During your visit today, we recorded the following information about you: Temperature Pulse Respiration Blood pressure 97.4 degrees 74/minute 14/minute 108/86 Weight Height 135.2 kg 1.803 m Mónica Casiano MA 05/07/2025 3:13 PM Signed Paige Muller APRN.CNP 05/07/2025 3:13 PM Signed OFFICE VISIT PROGRESS NOTE CC Sugey West is a 23 year old who presents today for blood sugar review, DM med dose review, adjust. 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 - multiple appts scheduled and cancelled by patient No change in nutrition Was denied jodi by insurance Has not been on insulins at all If needs to go back on insulin, wants to re-look at possibly insulin pump therapy Is using her CGM -- compliant and benefiting from CGM use CURRENT DM MEDS TRULICITY 1.5 mg weekly injection METFORMIN 500 2 tab BID SMBG Freestyle jazmin 3 Type of Monitor: [...] APPT, PATIENT DID NOT COMPLETE Recent Labs 04/05/23 1530 04/05/23 1532 06/21/23 1230 02/02/24 1139 02/02/24 1151 01/01/25 0920 01/01/25 0927 ALT 30 -- -- 23 -- 59* -- AST 21 -- -- 20 -- 41* -- UCRR -- 128.4 -- -- 256.6 -- 62.5 UALBR -- <12.0 -- -- 213.8 -- <12.0 UALBCR -- <9 -- -- 83* -- <19 TSH 0.777 -- -- -- -- 3.010 -- TPROT 6.9 -- -- 7.3 -- 7.0 -- ALB 4.1 -- -- 4.5 -- 4.3 -- CA 9.6 -- -- 10.0 -- 9.6 -- TBILI 0.2 -- -- 0.4 -- 0.3 -- ALKPHOS 72 -- -- 65 -- 67 -- GLUC 235* -- -- 202* -- 264* -- BUN 14 -- -- 11 -- 10 -- CREAT 0.60 -- -- 0.64 -- 0.64 -- NA 139 -- -- 140 -- 141 -- K 3.8 -- -- 3.9 -- 4.1 -- CHLOR 102 -- -- 105 -- 103 -- CO2 24 -- -- 27 -- 27 -- ANION 13 -- -- 8* -- 11 -- EGFROTH 129 -- -- 126 -- 125 -- HBA1C 10.9* -- 9.1* 6.4* -- 7.6* -- Recent Labs 04/05/23 1530 06/21/23 1230 02/02/24 1139 01/01/25 0920 TG 210* -- 94 147 CHOL 184 -- 189 178 HDL 36* -- 34* 32* VLDL 42* -- 19 25 LDL 106* -- 136* 120* TCHDL 5.11* -- 5.56* 5.56* LDLHDL 2.94* -- 4.00* 3.75* NONHDL 148* -- 155* 146* HBA1C 10.9* 9.1* 6.4* 7.6* HBA0 266 -- 137 171 PAST MEDICAL HISTORY Diagnosis Date Depression Diabetes [...] use: No Current Outpatient Medications Medication Sig semaglutide (OZEMPIC) 1 mg/dose (4 mg/3 mL) pen Inject 1 mg subcutaneously one time a week. metFORMIN ER (GLUCOPHAGE XR) 500 mg 24 hr tablet Take 2 (more content not included)... Normal [facility] HEMOGLOBIN A1C (POC)on 05-07 HbA1c (Bld) [Mass fraction] 9.7 % Abnormal 4.3 - 5.6 % [facility] Comment on above: Location:[facility], [address], [place], [address] Point of care (POC) Hemoglobin A1c (HGBA1C) testing is intended to assess glucose control and provide a management tool for patients known to have diabetes and their healthcare providers. Target HGBA1C levels may depend on specific clinical circumstances. POC HGBA1C is not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 Address: [address] [place] [address] Performed By: #### 5 7021-8 ####[facility] MILADYSBRIDGERA [id number] [place] [address] [place] Monocytes/100 WBC (Bld) 5.0 % Normal [facility] Comment on above: Order Comment: Speci men Type: BLOOD SPECIMENOrdering Facility: [facility] Address: [address] [place] [address] Performed By: #### 5 7021-8 ####[facility] [id number] [place] [address] [place] Neutrophils (Bld) [#/Vol] 5.07 10*3/uL Normal 1.45-7.50 [facility] Comment on above: Order Comment: Speci men Type: BLOOD SPECIMENOrdering Facility: [facility] Address: [address] [place] [address] Performed By: #### 5 7021-8 ####[facility] [id number] [place] [address] [place] Neutrophils/100 WBC (Bld) 58.8 % Normal [facility] Comment on above: Order Comment: Speci men Type: BLOOD SPECIMENOrdering Facility: [facility] Address: [address] [place] [address] Performed By: #### 5 7021-8 ####[facility]ENTERLIA [id number] [place] [address] [place] Nucleated RBC (Bld) [#/Vol] 10*3/uL Normal <0.01 [facility] Comment on above: Order Comment: Speci men Type: BLOOD SPECIMENOrdering Facility: [facility] Address: [address] [place] [address] Performed By: #### 5 7021-8 ####[facility] MILADYSCASILIA [id number] [place] [address] [place] Nucleated RBC/100 WBC (Bld) [Ratio] 0.0 /100 WBC Normal [facility] Comment on above: Order Comment: Speci men Type: BLOOD SPECIMENOrdering Facility: [facility] Address: [address] [place] [address] Performed By: #### 5 7021-8 ####[facility] [id number] [place] [address] [place] Platelet mean volume (Bld) [Entitic vol] 9.2 fL Normal 9.0-12.7 [facility] Comment on above: Order Comment: Speci men Type: BLOOD SPECIMENOrdering Facility: [facility] Address: [address] [place] [address] Performed By: #### 5 7021-8 ####[facility] [id number] [place] [address] [place] Platelets (Bld) [#/Vol] 280 10*3/uL Normal 150-400 [facility] Comment on above: Order Comment: Speci men Type: BLOOD SPECIMENOrdering Facility: [facility] Address: [address] [place] [address] Performed By: #### 5 7021-8 ####[facility] [id number] [place] [address] [place] RBC (Bld) [#/Vol] 4.18 10*6/uL Normal 3.90-5.20 [facility] Comment on above: Order Comment: Speci men Type: BLOOD SPECIMENOrdering Facility: [facility] Address: [address] [place] [address] Performed By: #### 5 7021-8 ####[facility] [id number] [place] [address] [place] WBC (Bld) [#/Vol] 8.62 10*3/uL Normal 3.70-11.00 [facility] Comment on above: Order Comment: Speci men Type: BLOOD SPECIMENOrdering Facility: [facility] Address: [address] [place] [address] Performed By: #### 5 7021-8 ####[facility] [id number] [place] [address] [place] CNOVon 01-01-2025 CNOV Office Visit (ENWSTR ) SUGEY WEST ([id number]) 2000 F CHT Date Time Provider Department 01/01/25 8:45 AM PAIGE MULLER ENWSTR During your visit today, we recorded the following information about you: Pulse Blood pressure Weight 81/minute 123/85 137.4 kg Mónica Casiano MA 01/01/2025 9:01 AM Signed Paige Muller, LACTATION SPECIALIST.DATA INTEGRATION DEVELOPER 01/01/2025 9:01 AM Signed OFFICE VISIT PROGRESS NOTE CC Sugey West is a 23 year old who presents today for blood sugar review, DM med dose review, adjust. HPI Diagnosed with pre diabetes age 16 Dx with DM2 2020 Last endocrine OV 01/24/2024 Some elements copied [...] mg. fluticas (more content not included)... Normal [facility] metabolic 2000 panelOrdered By: Jayleen Wilks on 01-01-2025 Albumin [Mass/Vol] 4.3 g/dL 3.9 - 4.9 g/dL [facility] ALP [Catalytic activity/Vol] 67 U/L 34 - 123 U/L [facility] ALT [Catalytic activity/Vol] 59 U/L High 7 - 38 U/L [facility] Anion gap [Moles/Vol] 11 mmol/L 8 - 15 mmol/L [facility] AST [Catalytic activity/Vol] 41 U/L High 13 - 35 U/L [facility] Bilirubin [Mass/Vol] 0.3 mg/dL 0.2 - 1 .3 mg/dL [facility] Calcium [Mass/Vol] 9.6 mg/dL 8.5 - 10. 2 mg/dL [facility] Chloride [Moles/Vol] 103 mmol/L 98 - 10 7 mmol/L [facility] CO2 [Moles/Vol] 27 mmol/L 22 - 30 mmol/L [facility] Creatinine [Mass/Vol] 0.64 mg/dL 0.58 - 0.96 mg/dL [facility] GFR/1.73 sq M.predicted among non-blacks MDRD (S/P/Bld) [Vol rate/Area] 125 mL/min/{1.73_m2} - PINF [facility] Comment on above: Estimated Glomerular Filtration [...] 264 mg/dL High 74 - 99 mg/dL [facility] Comment on above: The [place] Diabete s Association (ADA) provides guidance for [...] Standards of Medical Care in Diabetes 2016, [place] Diabetes Association. Diabetes Care. 2016.39(Suppl 1). Interpretation and review of laboratory results Abnormal [facility] Potassium [Moles/Vol] 4.1 mmol/L 3.7 - 5.1 mmol/L [facility] Protein [Mass/Vol] 7 g/dL 6.3 - 8.0 g/dL [facility] Sodium [Moles/Vol] 141 mmol/L 136 - 144 mmol/L [facility] Urea nitrogen [Mass/Vol] 10 mg/dL 7 - 21 mg/dL [facility] Comprehensive metabolic 2000 panelon 01-01-2025 Albumin [Mass/Vol] 4.3 g/dL Normal 3.9-4.9 [facility] Comment on above: Order Comment: Speci men Type: BLOOD SPECIMENOrdering Facility: [facility] Address: [address] [place] [address] Performed By: #### 2 4323-8 ####[facility] [id number] [place] [address] [place] ALP [Catalytic activity/Vol] 67 U/L Normal 34-123 [facility] Comment on above: Order Comment: Speci men Type: BLOOD SPECIMENOrdering Facility: [facility] Address: [address] [place], [place] [address] Performed By: #### 2 4323-8 ####[facility] [id number] [place] [address] [place] ALT [Catalytic activity/Vol] 59 U/L High 7-38 [facility] Comment on above: Order Comment: Speci men Type: BLOOD SPECIMENOrdering Facility: [facility] Address: [address] [place] [address] Performed By: #### 2 4323-8 ####[facility] MILLTOWNCLIA [id number] [place] [address] [place] Anion gap [Moles/Vol] 11 mmol/L Normal 8-15 [facility] Comment on above: Order Comment: Speci men Type: BLOOD SPECIMENOrdering Facility: [facility] Address: [address] [place] [address] Performed By: #### 2 4323-8 ####[facility] MILLTOWNCLIA [id number] [place] [address] [place] AST [Catalytic activity/Vol] 41 U/L High 13-35 [facility] Comment on above: Order Comment: Speci men Type: BLOOD SPECIMENOrdering Facility: [facility] Address: [address] [place] [address] Performed By: #### 2 4323-8 ####[facility] MILLTOWNCLIA [id number] [place] [address] [place] Bilirubin [Mass/Vol] 0.3 mg/dL Normal 0.2-1.3 [facility] Comment on above: Order Comment: Speci men Type: BLOOD SPECIMENOrdering Facility: [facility] Address: [address] [place] [address] Performed By: #### 2 4323-8 ####[facility] MILLTOWNCLIA [id number] [place] [address] [place] Calcium [Mass/Vol] 9.6 mg/dL Normal 8.5-10.2 [facility] Comment on above: Order Comment: Speci men Type: BLOOD SPECIMENOrdering Facility: [facility] Address: [address] [place] [address] Performed By: #### 2 4323-8 ####[facility] MILLTOWNCLIA [id number] [place] [address] [place] Chloride [Moles/Vol] 103 mmol/L Normal 98-107 [facility] Comment on above: Order Comment: Speci men Type: BLOOD SPECIMENOrdering Facility: [facility] Address: [address] [place] [address] Performed By: #### 2 4323-8 ####[facility] [id number] [place] [address] [place] CO2 [Moles/Vol] 27 mmol/L Normal 22-30 [facility] Comment on above: Order Comment: Speci men Type: BLOOD SPECIMENOrdering Facility: [facility] Address: [address] [place] [address] Performed By: #### 2 4323-8 ####[facility] [id number] [place] [address] [place] Creatinine [Mass/Vol] 0.64 mg/dL Normal 0.58-0.96 [facility] Comment on above: Order Comment: Speci men Type: BLOOD SPECIMENOrdering Facility: [facility] Address: [address] [place] [address] Performed By: #### 2 4323-8 ####[facility] [id number] [address] OF [facility] Creatinine and Glomerular filtration rate.predicted panel (S/P/Bld) 125 mL/min/1.73m??? Normal >=60 [facility] Comment on above: Order Comment: Speci men Type: BLOOD SPECIMENOrdering Facility: [facility] Address: [address] [place] [address] Result Comment: Lizzeth mated Glomerular Filtration Rate [...] actual GFR. Performed By: #### 2 4323-8 ####[facility] [id number] [place] [address] [place] Glucose [Mass/Vol] 264 mg/dL High 74-99 [facility] Comment on above: Order Comment: Speci men Type: BLOOD SPECIMENOrdering Facility: [facility] Address: [address] [place] [address] Result Comment: The [place] Diabetes Association (ADA) provides guidance for cutoff [...] Standards of Medical Care in Diabetes 2016, [place] Diabetes Association. Diabetes Care. 2016.39(Suppl 1). Performed By: #### 2 4323-8 ####[facility] [id number] [place] [address] [place] Potassium [Moles/Vol] 4.1 mmol/L Normal 3.7-5.1 [facility] Comment on above: Order Comment: Yoanna cuba Type: BLOOD SPECIMENOrdering Facility: [facility] Address: [address] [place] [address] Performed By: #### 2 4323-8 ####[facility] [id number] [place] [address] [place] Protein [Mass/Vol] 7.0 g/dL Normal 6.3-8.0 [facility] Comment on above: Order Comment: Yoanna cuba Type: BLOOD SPECIMENOrdering Facility: [facility] Address: [address] [place] [address] Performed By: #### 2 4323-8 ####[facility] [id number] [place] [address] [place] Sodium [Moles/Vol] 141 mmol/L Normal 136-144 [facility] Comment on above: Order Comment: Speci men Type: BLOOD SPECIMENOrdering Facility: [facility] Address: [address] [place] [address] Performed By: #### 2 4323-8 ####[facility] [id number] [place] [address] [place] Urea nitrogen [Mass/Vol] 10 mg/dL Normal 7-21 [facility] Comment on above: Order Comment: Speci men Type: BLOOD SPECIMENOrdering Facility: [facility] Address: [address] [place] [address] Performed By: #### 2 4323-8 ####[facility] [id number] [place] [address] [place] HbA1c (Bld)on 01-01-2025 Average glucose Estimated from glycated hemoglobin (Bld) [Mass/Vol] 171 mg/dL Normal [facility] Comment on above: Order Comment: Speci men Type: BLOOD SPECIMENOrdering Facility: [facility] Address: [address] [place] [address] Result Comment: eAG: (Estimated average glucose) is a calculated value from HgbA1c and is medical device sales representative of the average blood glucose level in the last 2-3 month period. Performed By: #### 5 5454-3 ####[facility] LABCLIA [id number] [place] [address] [place] HbA1c (Bld) [Mass fraction] 7.6 % High 4.3-5.6 [facility] Comment on above: Order Comment: Speci men Type: BLOOD SPECIMENOrdering Facility: [facility] Address: [address] [place] [address] Result Comment: [place] Diabetes Association guidelines indicate that patients with HgbA1c in the range 5.7-6.4% are at increased risk for development of diabetes, and intervention by lifestyle modification may be beneficial. HgbA1c greater or equal to 6.5% is considered diagnostic of diabetes. Performed By: #### 5 5454-3 ####[facility] LABCLIA [id number] [place] [address] [facility] LIPID PANEL, NONFASTINGon Cholesterol [Mass/Vol] 178 mg/dL Normal <200 [facility] Comment on above: Order Comment: Speci men Type: BLOOD SPECIMENOrdering Facility: [facility] Address: [address] [place] [address] Result Comment: <200 mg/dL, Desirable 200-239 mg/dL, Borderline high >239 mg/dL, High Performed By: #### L IPNF, 3024-7, 3016-3 ####[facility] LABCLIA [id number] [address], [facility]95 [place] HDL CHOLESTEROL, NF 32 mg/dL Low >39 [facility] Comment on above: Order Comment: Emeterioi men Type: BLOOD SPECIMENOrdering Facility: [facility] Address: [address] [place] [address] Result Comment: 40-5 9 mg/dL, Acceptable >59 mg/dL, High: Negative risk factor for coronary heart disease <40 mg/dL, Low: Positive risk factor for coronary heart disease Performed By: #### L IPNF, 3024-7, 3016-3 ####[facility] LABCLIA [id number] [place] [id number] [place] LDL CHOLESTEROL CALCULATED, NF 120 mg/dL High <100 [facility] Comment on above: Order Comment: Speci men Type: BLOOD SPECIMENOrdering Facility: [facility] Address: [address] [place] [address] Result Comment: <100 mg/dL, Optimal 100-129 mg/dL, Near optimal/above optimal 130-159 mg/dL, Borderline high 160-189 mg/dL, High >189 mg/dL, Very high Secondary prevention optimal LDL Cholesterol levels are recommended to be <70 mg/dL LDL cholesterol is calculated using the Cardenas-NIH equation. Performed By: #### L KINSEY, 3023-7, 3015-3 ####[facility] LABCLIA [id number] [address] OF [facility] LDL/HDL RATIO, NF 3.75 mg/dL High <2.54 [facility] Comment on above: Order Comment: Yoanna cuba Type: BLOOD SPECIMENOrdering Facility: [facility] Address: [address] [place] [address] Result Comment: Refe rence: 1. National Cholesterol Education Program ATP III Guideline At-A-Glance Quick Desk Reference: National Heart, Lung, and Blood [place]. National Institutes of Health. 2001: NIH Publication No. 01-3305. 2. An International Atherosclerosis Society position paper: global recommendations for the management of dyslipidemia: executive summary, Atherosclerosis. 2014: 232(2):410-413. Performed By: #### L KINSEY, 3024-03, 3015-11 ####[facility] LABCLIA [id number] [address] NON HDL CHOL, NF 146 mg/dL High <130 [facility] Comment on above: Order Comment: Yoanna cuba Type: BLOOD SPECIMENOrdering Facility: [facility] Address: [address] [place] [address] Result Comment: <130 mg/dL, Optimal 130-159 mg/dL, Near optimal/above optimal 160-189 mg/dL, Borderline high 190-219 mg/dL, High >219 mg/dL, Very high Secondary prevention optimal non HDL Cholesterol levels are recommended to be <100 mg/dL Performed By: #### L KINSEY, 3023-, 3015-3 ####[facility] LABCLIA [id number] [place] [address] [place] T CHOL/HDL RATIO NF 5.56 mg/dL High <5.10 [facility] Comment on above: Order Comment: Speci men Type: BLOOD SPECIMENOrdering Facility: [facility] Address: [address] [place] [address] Performed By: #### L IPNF, 3024-03, 301-3 ####[facility] LABCLIA [id number] [place] [address] [place] TRIGLYCERIDES, NF 147 mg/dL Normal <150 [facility] Comment on above: Order Comment: Speci men Type: BLOOD SPECIMENOrdering Facility: [facility] Address: [address] [place] [address] Result Comment: <150 mg/dL, Normal 150-199 mg/dL, Borderline high 200-499 mg/dL, High >499 mg/dL, Very high Performed By: #### L IPNF, 3024-03, 3 ####[facility] LABCLIA [id number] [place] [address] [place] VLDL CHOLESTEROL, NF 25 mg/dL Normal <30 [facility] Comment on above: Order Comment: Speci men Type: BLOOD SPECIMENOrdering Facility: [facility] Address: [address] [place] [address] Performed By: #### L IPNF, 3024-03, 3015-3 ####[facility] LABCLIA [id number] [place] [address] [place] T4 Free SerPl-mCncon 01-01- 025 Free T4 [Mass/Vol] 1.0 ng/dL Normal 0.9-1.7 [facility] Comment on above: Order Comment: Speci men Type: BLOOD SPECIMENOrdering Facility: [facility] Address: [address] [place] [address] Performed By: #### L IPNF, 3024-03, 3015-3 ####[facility] LABCLIA [id number] [address] [address] [place] TSH SerPl-aCncon 01-01-2025 TSH Qn 3.010 m[IU]/L Normal 0.270-4.200 [facility] Comment on above: Order Comment: Speci men Type: BLOOD SPECIMENOrdering Facility: [facility] Address: [facility] [place] [address] Result Comment: If t he patient is , TSH reference range varies by gestational period: First Trimester (weeks 9-12): 0.180-2.990 mIU/L Second Trimester: 0.110-3.980 mIU/L Third Trimester: 0.480-4.710 mIU/L Ulices Ramsey et al. A Practical Approach for the Verifications and Determination of Site- and Trimester-Specific Reference Intervals for Thyroid Function tests in . Thyroid, 2019:29:3:412-420. Robbie [place], et al. 2017 Guidelines of the [place] Thyroid Association for the Diagnosis and Management of Thyroid Disease during and the . Thyroid, 2017:27:3:315-389. Performed By: #### L IPNF, 3024-7, 3016-3 ####[facility] LABCLIA [id number] [place] [address] [place] Influenza virus A and B and SARS-CoV-2 (COVID-19) and Respiratory syncytial virus RNAOrdered By: Eliazar Amos on 11-15-2024 SARS-CoV-2 (COVID-19) RNA GREYSON+probe Ql (Unsp spec) [facility] Internal Medicine Office Vis iton 11-15-2024 Internal Medicine Office Visit [facility] [address] [place], [place] [address] OFFICE VISIT Date of Service: 11/15/24 MR#: [id number] Acct: [id number] Name: SUGEY WEST Rep #: [id number] : 2000 Provider: Dr. Eliazar acosta MD Age/Sex: 23/F Location: [facility] Status: Signed Intake Vital Signs 07/19/24 10:33 [...] ???Medication ???Instructions ???Recorded ???Confirmed ???Type blood-glucose sensor (CRS Electronicsyle #1 ea 05/03/24 11/15/24 History Jazmin 3 [...] 10/31/24 0 11/15/24 Rx blood sugar diagnostic (SkoovyTouch #10 ea 11/06/24 11/15/24 History Verio test strips) blood-glucose meter (OneTouch #1 ea 11/06/24 11/15/24 History Verio Flex Meter) dulaglutide 1.5 mg/0.5 mL 1.5 mg subcut QWEEK 11/06/2411/15 History subcutaneous pen injector (Trulicity) lancets 30 gauge (SkoovyTouch Delio #100 ea 11/06/24 11/15/24 History Plus Lancet) [...] TO LOSE WEIGHT BEFORE BREAST REDUCTION SURGERY [facility] Medical History (Updated 11/15/24 @ 11:09 by [...] daily sea (more content not included)... Normal [facility] Laboratory - Hematology and Cell countsOrdered By: Eliazar Amos on 11-15-2024 HbA1c (Bld) [Mass fraction] 7.2 % High 4.2-6.3 [facility] M100.678on 11-15-2024 M100.678 SARS-CoV-2 (COVID 19 ) Negative INFLUENZA A Negative INFLUENZA B Negative RSV PCR Negative Normal [facility] Comment on above: Performed By: #### M 100.678 #### [facility] Laboratory [address] [place], [address] [facility] 11-07-2024 [facility] Tele[facility] (STED) SUGEY WEST ([id number]) 2000 [facility] Date Time Provider Department 11/07/24 PAIGE MULLER During your visit today, we recorded the following information about you: Madison Carlisle MA 11/07/2024 8:59 AM Signed Left patient message to let her know she was scheduled at the [place] office,and that we are 2 1/2 hours away I said she could reschedule with the [place] office.I asked that she call and confirm [...] test TWO TIMES DAILY - Blood-Glucose Sensor (Asante SolutionsSTYLE JAZMIN 3 SENSOR PLUS) osito CHANGE SENSOR [...] BID, # 30 gram(s), 0 Refill(s), Pharmacy: [id number], 177.5, cm, 03/13/23 10:35:00 EDT, Height, 117.5 - SUMAtriptan (IMITREX) 50 mg tablet TAKE 1 TABLET BY MOUTH EVERY 2 HOURS NEEDED FOR HEADACHE. MAX DOSE OF 2 TABLETS A DAY - cyclobenzaprine (FLEXERIL) 10 mg tablet Take 10 mg by mouth three times daily. prn - Insulin Sanford, Disposable, (BD ULTRAFINE III MINI PEN) 31 [...] Encounter Status:Closed by MADISON CARLISLE on 11/07/24 [facility] Plastic Surgery Visit Report on 11-06-2024 Plastic Surgery Visit Report [facility] Plastic Reconstructive Surgery [address] [facility], [address] [place] [id number] OFFICE VISIT Date of Service: 11/06/24 MR#: [id number] Acct: [id number] Name: SUGEY WEST Rep #: [id number] : 2000 Provider: Dr. Delores park MD Age/Sex: 23/F Location[facility] Status: Signed Intake Vital Signs [...] 10/31/24 0 11/06/24 Rx blood sugar diagnostic (OneTouch #10 ea 11/06/24 11/06/24 History Verio test strips) blood-glucose meter (OneTouch #1 ea 11/06/24 11/06/24 History Verio Flex Meter) dulaglutide 1.5 mg/0.5 mL 1.5 mg subcut QWEEK 11/06/2411/06 History subcutaneous pen injector (Trulicity) lancets 30 gauge (OneTouch Delio #100 ea 11/06/24 11/06/24 History Plus Lancet) lorazepam 1 mg capsule,extended 1 mg PO QDAY 11/06/24 11/06/24 His tory release 24 hr Have you fallen in the past year?: No Nurse's Note: pt here with friend for josette breast reduction consult, pt admits to vaping. [facility] Medical History Poor appetite Wears glasses Depression [...] of physical activity (more content not included)... [facility] 10-28-2024 [facility] Telephone (ENWSTR) SUGEY WEST ([id number]) 2000 [facility] Date Time Provider Department 10/28/24 PAIGE MULLER [...] Gutierrez MA 10/29/2024 3:16 PM Signed ALEJANDRA singh denied Coverage is provided when the member meets [...] two or more drugs concomitantly per ADA ([place] Diabetes Association) guidelines and; 3. Member has documented adherence and appropriate dose escalation (must achieve maximum recommended dose or document that maximum recommended dose is not tolerated or is clinically inappropriate) and; 4. Documentation includes a patient specific A1C goal if less than 7% and must include current A1C (within the last [address] [facility] Policy for Medical Necessity as posted on the [facility] website and [facility] Preferred Drug List criteria were reviewed and per [place] Administrative Code Rule 5160-1-01 (C) and (B), [...] 1 ta (more content not included)... Normal [facility] Bedside Glucoseon 10-15-2024 FINGERSTICK GLU 88 mg/dL Normal 74-106 [facility] Comment on above: Result Comment: RICA OBREGON OF PATIENT CARE PER NURSING PROTOCOL Performed By: #### M [id number] #### [facility] [address] [place], [place], [address] Glucose [facility] at [facility] deOrdered By: Shlomo Santizo on 10-15-2024 Bedside Glucose ([facility] Panel) 88 mg/dL 74-106 [facility] Comment on above: MANAGEMENT OF PATIEN T CARE PER NURSING PROTOCOL Glucose [Mass/Vol] 88 mg/dL 74-106 [facility] Comment on above: MANAGEMENT OF PATIEN T CARE PER NURSING PROTOCOL 12 Lead EKGon 10-14-2024 12 Lead EKG [facility] [address] [place] [address] 12 Lead EKG 10/14/24 2306 MR#: [id number] Acct: [id number] Name: SUGEY WEST Rep #: [id number] : 2000 From: George Stone MD Attending [...] Otherwise normal ECG Confirmed by George Stone ([id number]), editor managing director ROB HATCH ([id number]) on 10/15/2024 10:00:34 AM Referred By: Confirmed By: George Stone 10/15/24 1000 Date George Stone MD CC: Dr. Eliazar Amos MD; Dr. Shlomo Santizo DO Signed Normal [facility] Absolute lymphocyte countOrd ered By: Shlomo Santizo on 10-14-2024 Lymphocytes Auto (Unsp spec) [#/Vol] 3.85 10*3/uL 0.83-4.51 [facility] Absolute neutrophil countOrd ered By: Shlomo Santizo on 10-14-2024 Neutrophils (Bld) [#/Vol] 5.5 10*3/uL 2.0-7.7 [facility] Automated lymphocyte count a s percentage of total leukocytesOrdered By: Shlomo Santizo on 10-14-2024 Lymphocytes/100 WBC Auto (Unsp spec) 38.9 % 19-41 [facility] Basic Metabolic Profile (BMP )on 10-14-2024 BUN/CRE 12.6 RATIO Normal 10- [facility] Comment on above: Order Comment: 'TROP ' Serial specimen #1, #2 or #3: 1 Performed By: #### L 501.9520, L500.2500, L100.0100, L501.4020, L506.0400, L501.03021 ####[facility] [address] [place], [address] CA,Total 8.9 mg/dL Normal 8.5-10.1 [facility] Comment on above: Order Comment: 'TROP ' Serial specimen #1, #2 or #3: 1 Performed By: #### L 501.9520, L500.2500, L100.0100, L501.4020, L506.0400, L501.08065 ####[facility] [address] [place], [address] Chloride [Moles/Vol] 108 mmol/L High 98-107 [facility] Comment on above: Order Comment: 'TROP ' Serial specimen #1, #2 or #3: 1 Performed By: #### L 501.9520, L500.2500, L100.0100, L501.4020, L506.0400, L501.74687 ####[facility] [address] [place], [address] CO2 [Moles/Vol] 30.0 mmol/L Normal 21.0-32.0 [facility] Comment on above: Order Comment: 'TROP ' Serial specimen #1, #2 or #3: 1 Performed By: #### L 501.9520, L500.2500, L100.0100, L501.4020, L506.0400, L501.33093 ####[facility] [address] [place], [address] Creatinine [Mass/Vol] 0.72 mg/dL Normal 0.55-1.02 [facility] Comment on above: Order Comment: 'TROP ' Serial specimen #1, #2 or #3: 1 Result Comment: The validity of the calculated GFR GFRAA in patients over 70 years has not been determined. Clinical correlation is essential. Performed By: #### L 501.9520, L500.2500, L100.0100, L501.4020, L506.0400, L501.08896 ####[facility] [address] [place], [address] ECRCL 189.31 ml/min Normal [facility] Comment on above: Order Comment: 'TROP ' Serial specimen #1, #2 or #3: 1 Performed By: #### L 501.9520, L500.2500, L100.0100, L501.4020, L506.0400, L501.04105 ####[facility] [address] [place], [address] EST GFR - AA 127 mL/min Normal >60 [facility] Comment on above: Order Comment: 'TROP ' Serial specimen #1, #2 or #3: 1 Result Comment: Afri can Irish GFR Calc Performed By: #### L 501.9520, L500.2500, L100.0100, L501.4020, L506.0400, L501.54490 ####[facility] [address] [place], [address] GAP 5 Normal 5-15 [facility] Comment on above: Order Comment: 'TROP ' Serial specimen #1, #2 or #3: 1 Performed By: #### L 501.9520, L500.2500, L100.0100, L501.4020, L506.0400, L501.97437 ####[facility] [address] [place], [address] GFR/1.73 sq M.predicted among non-blacks MDRD (S/P/Bld) [Vol rate/Area] 105 mL/min/{1.73_m2} Normal >60 [facility] Comment on above: Order Comment: 'TROP ' Serial specimen #1, #2 or #3: 1 Result Comment: Non- GFR Calc Performed By: #### L 501.9520, L500.2500, L100.0100, L501.4020, L506.0400, L501.83570 ####[facility] [address] [place], [address] Glucose [Mass/Vol] 108 mg/dL High 74-106 [facility] Comment on above: Order Comment: 'TROP ' Serial specimen #1, #2 or #3: 1 Result Comment: Fast ing Glucose result from 100 to 125 mg/dL suggests IMPAIRED HOMEOSTASIS per A.D.A. criteria. Performed By: #### L 501.9520, L500.2500, L100.0100, L501.4020, L506.0400, L501.69179 ####[facility] [address] [place], [address] Potassium [Moles/Vol] 3.6 mmol/L Normal 3.5-5.1 [facility] Comment on above: Order Comment: 'TROP ' Serial specimen #1, #2 or #3: 1 Performed By: #### L 501.9520, L500.2500, L100.0100, L501.4020, L506.0400, L501.02289 ####[facility] [address] [place], [address] Sodium [Moles/Vol] 143 mmol/L Normal 136-145 [facility] Comment on above: Order Comment: 'TROP ' Serial specimen #1, #2 or #3: 1 Performed By: #### L 501.9520, L500.2500, L100.0100, L501.4020, L506.0400, L501.87417 ####[facility] [address] [place], [address] Urea nitrogen [Mass/Vol] 9 mg/dL Normal 7-18 [facility] Comment on above: Order Comment: 'TROP ' Serial specimen #1, #2 or #3: 1 Performed By: #### L 501.9520, L500.2500, L100.0100, L501.4020, L506.0400, L501.12724 ####[facility] [address] [place], [address] Basophil percentageOrdered B y: Shlomo Santizo on 10-14-2024 Basophils/100 WBC (Bld) 0.2 % 0-1 [facility] Bedside Glucoseon 10-14-2024 FINGERSTICK GLU 98 mg/dL Normal 74-106 [facility] Comment on above: Result Comment: RICA OBREGON OF PATIENT CARE PER NURSING PROTOCOL Performed By: #### L 501.080 #### [facility] [address] [place], [address] Blood urea nitrogen (BUN)/cr eatinine ratioOrdered By: Shlomo Santizo on 10-14-2024 Urea nitrogen/Creatinine [Mass ratio] 12.6 mg/mg 10-20 [facility] CBC W/Diff, Automatedon 10-05 Absolute Lymph 3.85 X10 3/uL Normal 0.83-4.51 [facility] Comment on above: Performed By: #### L 501.9520, L500.2500, L100.0100, L501.4020, L506.0400, L501.37531 ####[facility] [address] [place], [address] Absolute Neut 5.5 X10 3/uL Normal 2.0-7.7 [facility] Comment on above: Performed By: #### L 501.9520, L500.2500, L100.0100, L501.4020, L506.0400, L501.13426 ####[facility] [address] [place], [address] Basophils/100 WBC (Bld) 0.2 % Normal 0-1 [facility] Comment on above: Performed By: #### L 501.9520, L500.2500, L100.0100, L501.4020, L506.0400, L501.59941 ####[facility] [address] [place], [address] Eosinophils/100 WBC (Bld) 1.2 % Normal 0-5 [facility] Comment on above: Performed By: #### L 501.9520, L500.2500, L100.0100, L501.4020, L506.0400, L501.41697 ####[facility] [address] [place], [address] Erythrocyte distribution width (RBC) [Ratio] 12.3 % Normal 11.6-14.6 [facility] Comment on above: Performed By: #### L 501.9520, L500.2500, L100.0100, L501.4020, L506.0400, L501.92885 ####[facility] [address] [place], [address] Hematocrit (Bld) [Volume fraction] 35.3 % Low 37-47 [facility] Comment on above: Performed By: #### L 501.9520, L500.2500, L100.0100, L501.4020, L506.0400, L501.33046 ####[facility] [address] [place], [address] Hemoglobin (Bld) [Mass/Vol] 12.5 g/dL Normal 12.0-15.0 [facility] Comment on above: Performed By: #### L 501.9520, L500.2500, L100.0100, L501.4020, L506.0400, L501.80958 ####[facility] [address] [place], [address] IG% 0.300 Normal 0.0-0.9 [facility] Comment on above: Result Comment: IG% - Immature Granulocytes (promyelocytes, myelocytes and metamyelocytes) > 1% indicates that a LEFT SHIFT is Present. Performed By: #### L 501.9520, L500.2500, L100.0100, L501.4020, L506.0400, L501.76226 ####[facility] [address] [place], [address] Lymphocytes/100 WBC (Bld) 38.9 % Normal 19-41 [facility] Comment on above: Performed By: #### L 501.9520, L500.2500, L100.0100, L501.4020, L506.0400, L501.78777 ####[facility] [address] [place], [address] MCH (RBC) [Entitic mass] 33.1 pg High 27.0-32.0 [facility] Comment on above: Performed By: #### L 501.9520, L500.2500, L100.0100, L501.4020, L506.0400, L501.96248 ####[facility] [address] [place], [address] MCHC (RBC) [Mass/Vol] 35.4 g/dL Normal 32-36 [facility] Comment on above: Performed By: #### L 501.9520, L500.2500, L100.0100, L501.4020, L506.0400, L501.24106 ####[facility] [address] [place], [address] MCV (RBC) [Entitic vol] 93.4 fL Normal 81-99 [facility] Comment on above: Performed By: #### L 501.9520, L500.2500, L100.0100, L501.4020, L506.0400, L501.65786 ####[facility] [address] [place], [address] Monocytes/100 WBC (Bld) 3.5 % Normal 0-10 [facility] Comment on above: Performed By: #### L 501.9520, L500.2500, L100.0100, L501.4020, L506.0400, L501.03795 ####[facility] [address] [place], [address] Neutrophils/100 WBC (Bld) 55.9 % Normal 47-70 [facility] Comment on above: Performed By: #### L 501.9520, L500.2500, L100.0100, L501.4020, L506.0400, L501.60736 ####[facility] [address] [place], [address] Nucleated RBC (Bld) [#/Vol] 0 10*3/uL Normal 0-5 [facility] Comment on above: Performed By: #### L 501.9520, L500.2500, L100.0100, L501.4020, L506.0400, L501.56679 ####[facility] [address] [place], [address] Platelet mean volume (Bld) [Entitic vol] 8.4 fL Normal 6.2-12.0 [facility] Comment on above: Performed By: #### L 501.9520, L500.2500, L100.0100, L501.4020, L506.0400, L501.76488 ####[facility] [address] [place], [address] Platelets (Bld) [#/Vol] 273 10*3/uL Normal 150-450 [facility] Comment on above: Performed By: #### L 501.9520, L500.2500, L100.0100, L501.4020, L506.0400, L501.33673 ####[facility] [address] [place], [address] RBC (Bld) [#/Vol] 3.78 10*6/uL Low 4.2-5.4 [facility] Comment on above: Performed By: #### L 501.9520, L500.2500, L100.0100, L501.4020, L506.0400, L501.80254 ####[facility] [address] [place], [address] RDW SD 42.0 fl Normal 35.1-43.9 [facility] Comment on above: Performed By: #### L 501.9520, L500.2500, L100.0100, L501.4020, L506.0400, L501.87788 ####[facility] [address] [place], [address] WBC (Bld) [#/Vol] 9.9 10*3/uL Normal 4.4-11.0 [facility] Comment on above: Performed By: #### L 501.9520, L500.2500, L100.0100, L501.4020, L506.0400, L501.59787 ####[facility] [address] [place], [address] Carbon dioxide measurementOr dered By: Shlomo Santizo on 10-14-2024 CO2 [Moles/Vol] 30.0 mmol/L 21.0-32.0 [facility] [facility] Chest PA and Lateralon 10-14 Chest PA and Lateral [facility] [address] [place] [address] Chest PA and Lateral MR#: [id number] Acct: [id number] Name: SUGEY WEST Rep #: [id number] : 2000 F 23 [facility] Dr[facility] Eliazar Amos MD Status: [facility] ER Study: Chest PA and Lateral Date of Exam: 10/14/24 Exam# [id number] Ordering Dr: Shlomo Santizo DO PROCEDURE: CHEST PA AND LATERAL REASON FOR EXAM: Chest pain. TECHNIQUE: Frontal and lateral views of the chest. COMPARISON: Chest x-ray from 08/12/2022. FINDINGS: Cardiac size and pulmonary vasculature are within normal limits. No consolidation, pleural effusion, or pneumothorax is present. RAD/Chest PA and Lateral IMPRESSION: No acute cardiopulmonary process. Reading Location: [facility] CC: Dr. Eliazar Amos MD; Dr. Shlomo Santizo DO Associate Web Developer: Signed Normal [facility] Chloride measurementOrdered By: Shlomo Santizo on 10-14-2024 Chloride [Moles/Vol] 108 mmol/L High 98-107 [facility] Direct serum free thyroxine (FT4) measurementOrdered By: Shlomo Santizo on 10-14-2024 Free T4 [Mass/Vol] 0.95 ng/dL 0.76-1.46 [facility] Emergency Department Summary on 10-14-2024 Emergency Department Summary [facility] Medical Records Department [address] [place] [address] Emergency Department Summary 10/14/24 MR#: [id number] Acct: [id number] Name: SUGEY WEST Rep #: [id number] : 2000 23 From: Shlomo Santizo DO PCP: Dr. Eliazar [...] that she got her Trulicity shot yesterday. [facility] Medical History Poor appetite Wears glasses Depression [...] ROS E (more content not included)... Normal [facility] Eosinophil percentageOrdered By: Shlomo Santizo on 10-14-2024 Eosinophils/100 WBC (Bld) 1.2 % 0-5 [facility] Erythrocyte distribution wid th ratioOrdered By: Shlomo Santizo on 10-14-2024 Erythrocyte distribution width (RBC) [Ratio] 12.3 % 11.6-14.6 [facility] Erythrocyte distribution wid th standard deviationOrdered By: Shlomo Santizo on 10-14-2024 Erythrocyte distribution width (RBC) [Entitic vol] 42.0 fL 35.1-43.9 [facility] Erythrocyte distribution width (RBC) [Ratio] 42.0 fl 35.1-43.9 [facility] Estimated glomerular filtrat ion rate (GFR) AmericanOrdered By: Shlomo Santizo on 10-14-2024 Estimated GFR (MDRD) Amer 127 mL/min >60 [facility] Comment on above: GFR Calc Estimation of creatinine caitlin aranceOrdered By: Shlomo Santizo on 10-14-2024 Estimated Creatinine Clearance Calc 189.31 ml/min [facility] Free T3on 10-14-2024 Free T3 [Mass/Vol] 3.4 pg/mL Normal 2.18-3.98 [facility] Comment on above: Order Comment: 'TROP ' Serial specimen #1, #2 or #3: 1 Performed By: #### L 501.9520, L500.2500, L100.0100, L501.4020, L506.0400, L501.68010 ####[facility] [address] [place], [place], [id number] Free F1Acnoxkb By: Shlomo flynn on 10-14-2024 Free T3 [Mass/Vol] 3.4 pg/mL 2.18-3.98 [facility] Free Triiodothyronine (T3) pg/dL 3.4 pg/mL 2.18-3.98 [facility] Glomerular filtration rate ( GFR) estimationOrdered By: Shlomo Santizo on 10-14-2024 Estimated GFR (MDRD) Non-Af Amer 105 mL/min >60 [facility] Comment on above: Non- GFR Calc GFR/1.73 sq M.predicted among non-blacks MDRD (S/P/Bld) [Vol rate/Area] 105 mL/min/{1.73_m2} >60 [facility] Comment on above: Non- GFR Calc Glucose measurementOrdered B y: Shlomo Santizo on 10-14-2024 Glucose [Mass/Vol] 108 mg/dL High 74-106 [facility] Comment on above: Fasting Glucose resu lt from 100 to 125 mg/dL suggests IMPAIRED HOMEOSTASIS per A.D.A. criteria. Hematocrit Auto (Bld) [Volum e fraction]Ordered By: Shlomo Santizo on 10-14-2024 Hematocrit (Bld) [Volume fraction] 35.3 % Low 37-47 [facility] Hemoglobin measurementOrdere d By: Shlomo Santizo on 10-14-2024 Hemoglobin (Bld) [Mass/Vol] 12.5 g/dL 12.0-15.0 [facility] Immature granulocytes/100 WB C Auto (Bld)Ordered By: Shlomo Santizo on 10-14-2024 Immature granulocytes/100 WBC (Bld) 0.300 % 0.0-0.9 [facility] Comment on above: IG% - Immature Granu locytes (promyelocytes, myelocytes and metamyelocytes) > 1% indicates that a LEFT SHIFT is Present. Influenza virus A and B and SARS-CoV-2 (COVID-19) and Respiratory syncytial virus RNAOrdered By: Shlomo Santizo on 10-14-2024 SARS-CoV-2 (COVID-19) RNA GREYSON+probe Ql (Unsp spec) [facility] L501.4020on 10-14-2024 TROPONIN-I HS 5 pg/mL Normal 3.0-54.0 [facility] Comment on above: Order Comment: 'TROP ' Serial specimen #1, #2 or #3: 1 Result Comment: Plea se Note: New Test Units and Gender Specific Reference Ranges. For more information see Policy Stat Procedure [place] High Sensitivity Troponin (TNIH) and attachments. Performed By: #### L 501.9520, L500.2500, L100.0100, L501.4020, L506.0400, L501.84997 ####[facility] [address] [place], [place], [id number]) Lymphocytes Auto (Unsp spec) [#/Vol]Ordered By: Shlomo Santizo on 10-14-2024 Lymphocytes (Bld) [#/Vol] 3.85 10*3/uL 0.83-4.51 [facility] Lymphocytes/100 WBC Auto (Un sp spec)Ordered By: Shlomo Santizo on 10-14-2024 Lymphocytes/100 WBC (Bld) 38.9 % 19-41 [facility] M100.678on 10-14-2024 M100.678 Pending SARS-CoV-2 (COVID 19) Negative INFLUENZA A Negative INFLUENZA B Negative RSV PCR Negative Normal [facility] Comment on above: Performed By: #### M 100.678 #### [facility] Laboratory [address] [place], [address] MCV (mean corpuscular volume ) determinationOrdered By: Shlomo Santizo on 10-14-2024 MCV (RBC) [Entitic vol] 93.4 fL 81-99 [facility] Mean corpuscular hemoglobin (MCH) determinationOrdered By: Shlomo Santizo on 10-14-2024 MCH (RBC) [Entitic mass] 33.1 pg High 27.0-32.0 [facility] Mean corpuscular hemoglobin concentration (MCHC) determinationOrdered By: Shlomo Santizo on 10-14-2024 MCHC (RBC) [Mass/Vol] 35.4 g/dL 32-36 [facility] Mean platelet volume determi nationOrdered By: Shlomo Santizo on 10-14-2024 Platelet mean volume (Bld) [Entitic vol] 8.4 fL 6.2-12.0 [facility] Monocyte percentageOrdered B y: Shlomo Santizo on 10-14-2024 Monocytes/100 WBC (Bld) 3.5 % 0-10 [facility] Neutrophil percentageOrdered By: Shlomo Santizo on 10-14-2024 Neutrophils/100 WBC (Bld) 55.9 % 47-70 [facility] Nucleated red blood cell per centageOrdered By: Shlomo Santizo on 10-14-2024 Nucleated RBC/100 WBC (Bld) [Ratio] 0 % 0-5 [facility] Platelet countOrdered By: Armando Santizo on 10-14-2024 Platelets (Bld) [#/Vol] 273 10*3/uL 150-450 [facility] Potassium measurementOrdered By: Shlomo Santizo on 10-14-2024 Potassium [Moles/Vol] 3.6 mmol/L 3.5-5.1 [facility] RBC Auto (Bld) [#/Vol]Ordere d By: Shlomo Santizo on 10-14-2024 RBC (Bld) [#/Vol] 3.78 10*6/uL Low 4.2-5.4 [facility] Serum anion gap measurementO rdered By: Shlomo Santizo on 10-14-2024 Anion gap [Moles/Vol] 5 mmol/L 5-15 [facility] Serum or plasma calcium jalyn urement (mass/volume)Ordered By: Shlomo Santizo on 10-14-2024 Calcium [Mass/Vol] 8.9 mg/dL 8.5-10.1 [facility] Serum or plasma creatinine m easurement (mass/volume)Ordered By: Shlomo Santizo on 10-14-2024 Creatinine [Mass/Vol] 0.72 mg/dL 0.55-1.02 [facility] Comment on above: The validity of the calculated GFR & GFRAA in patients over 70 years has not been determined. Clinical correlation is essential. Serum or plasma thyroid stim ulating hormone (TSH) measurement (units/volume)Ordered By: Shlomo Santizo on 10-14-2024 TSH Qn 4.220 uIU/mL High 0.358-3.740 [facility] Serum or plasma urea nitroge n measurement (mass/volume)Ordered By: Shlomo Santizo on 10-14-2024 Urea nitrogen [Mass/Vol] 9 mg/dL 7-18 [facility] Sodium levelOrdered By: Josh Santizo on 10-14-2024 Sodium [Moles/Vol] 143 mmol/L 136-145 [facility] T4 Free Directon 10-14-2024 T4 FREE DIRECT 0.95 ng/dL Normal 0.76-1.46 [facility] Comment on above: Order Comment: 'TROP ' Serial specimen #1, #2 or #3: 1 Performed By: #### L 501.9520, L500.2500, L100.0100, L501.4020, L506.0400, L501.39382 ####[facility] [address] [place], [place], [id number] TSH QnOrdered By: Shlomo trevino on 10-14-2024 Thyroid Stimulating Hormone (TSH) 4.220 uIU/mL High 0.358-3.740 [facility] Thyroid Stim Hormone (TSH)on 10-14-2024 TSH 4.220 uIU/mL High 0.358-3.740 [facility] Comment on above: Order Comment: 'TROP ' Serial specimen #1, #2 or #3: 1 Performed By: #### L 501.9520, L500.2500, L100.0100, L501.4020, L506.0400, L501.28146 ####[facility] [address] [place], [address] Troponin IOrdered By: Shlomo Santizo on 10-14-2024 Troponin I 5 pg/mL 3.0-54.0 [facility] Comment on above: Please Note: New Emy t Units and Gender Specific Reference Ranges. For more information see Policy Stat Procedure [place] High Sensitivity Troponin (TNIH) and attachments. Troponin I High Sensitivity 5 pg/mL 3.0-54.0 [facility] Comment on above: Please Note: New Emy t Units and Gender Specific Reference Ranges. For more information see Policy Stat Procedure [place] High Sensitivity Troponin (TNIH) and attachments. White blood cell (WBC) count Ordered By: Shlomo Santizo on 10-14-2024 WBC (Bld) [#/Vol] 9.9 10*3/uL 4.4-11.0 [facility] CNPN Telephone (ENWSTR) SUGEY WEST ([id number]) 2000 F T Date Time Provider Department 09/24/24 PAIGE MULLER ENWSTR During your visit today, we recorded the following information about you: Mónica Casiano MA 09/24/2024 3:42 PM Signed Cover my meds PA mancia [id number] started. NARDA Artis Brittney, RN 10/31/2024 12:03 PM Signed Paige Muller APRN.DATA INTEGRATION DEVELOPER 10/31/2024 12:32 PM Signed Patient's request for [...] notify patient. VICKI Pink Dianne C, APRN.CNP 10/31/2024 12:32 PM Signed Addended by: [...] BID, # 30 gram(s), 0 Refill(s), Pharmacy: [facility] #[id number], 177.5, cm, 03/13/23 10:35:00 EDT, Height, 117.5 - SUMAtriptan (IMITREX) 50 mg tablet TAKE 1 TABLET BY MOUTH EVERY 2 HOURS NEEDED FOR HEADACHE. MAX DOSE OF 2 TABLETS A DAY - cyclobenzaprine (FLEXERIL) 10 mg tablet Take 10 mg by mouth three times daily. prn - Insulin [place], Disposable, (BD ULTRAFINE III MINI PEN) 31 [...] Encounter Status:Closed by MÓNICA CASIANO on 09/24/24 Normal [facility] ED Provider Noteon ED Provider Note EMERGENCY [...] and DIFFERENTIAL DIAGNOSIS/MDM: Vitals: Vitals: 09/07/24 2141 09/07/242142 BP: (!) 138/98 Pulse: 87 Resp: 18 [...] [BM] Mona Collazo DO Diagnoses as of 09/07/242205 URI with cough and congestion Left otitis media, unspecified otitis media type Pharyngitis, unspecified etiology Medications cefuroxime (Ceftin) tablet 500 mg (has no administration in time range) REVAL: CRITICAL CARE TIME FINAL IMPRESSION 1. URI with cough and congestion 2. Left otitis media, unspecified otitis media type 3. Pharyngitis, unspecified etiology DISPOSITION Discharge 09/07/2024 10:03:59 PM PATIENT REFERRED TO: [facility] EM[facility]GENCY DEPT [address] [place] [phone] As needed, If symptoms worsen DISCHARGE [...] and ph (more content not included)... Normal [facility] Internal Medicine Office Vis tim 07-19-2024 Internal Medicine Office Visit [facility] [address] [place], [place] [address] OFFICE VISIT Date of Service: 07/19/24 MR#: [id number] Acct: [id number] Name: SUGEY WEST Rep #: [id number] : 2000 Provider: Dr. Eliazar acosta MD Age/Sex: 23/F Location: [facility] Status: Signed Intake Vital Signs 05/03/24 10:08 [...] fu/med refills Chief Complaint: f/u chronic conditions. Electoral Officer Required: No Accompanied by: Self Is patient [...] that anxiety is (more content not included)... [facility] Yadi 06-26-2024 [facility] Telephone (ENDWST) SUGEY WEST ([id number]) 2000 F CHT Date Time Provider Department 06/26/24 PAIGE MULLER During your visit today, we [...] unable to take the 4.5 mg? Paige Muller, LACTATION SPECIALIST.DATA INTEGRATION DEVELOPER 06/26/2024 2:19 PM Signed Message states patient [...] Reason for Visit: Refill Request [94] Cmt: shalonda Order(s):dulaglutide (TRULICITY) 3 mg/0.5 mL pen injectorInject [...] # 30 gram(s), 0 Refill(s), Pharmacy: [facility] #[id number], 177.5, cm, 03/13/23 10:35:00 EDT, Height, 117.5 - SUMAtriptan (IMITREX) 50 mg tablet TAKE 1 TABLET BY MOUTH EVERY 2 HOURS NEEDED FOR HEADACHE. MAX DOSE OF 2 TABLETS A DAY - cyclobenzaprine (FLEXERIL) 10 mg tablet Take 10 mg by mouth three times daily. prn - Insulin Sanford, Disposable, (BD ULTRAFINE III MINI PEN) 31 [...] Encounter Status:Closed by PAIGE MULLER on 06/27/24 Normal [facility] Activated partial thrombopla stin time (aPTT) in platelet poor plasma by coagulation aOrdered By: Fortunato Yap on 11-22-2023 aPTT Coag (PPP) [Time] 28.1 s 24.1-36.2 [facility] Basophil percentageOrdered B y: Fortunato Yap on 11-22-2023 Bilirubin [Mass/Vol] 0.40 mg/dL 0.20-1.00 [facility] Comment on above: For patients on eltr ombopag therapy, use of Dimension [place] TBIL is not recommended. Chloride [Moles/Vol] 110 mmol/L 98-107 [facility] Glucose [Mass/Vol] 123 mg/dL 74-106 [facility] Comment on above: Fasting Glucose resu lt from 100 to 125 mg/dL suggests IMPAIRED HOMEOSTASIS per A.D.A. criteria. Hemoglobin (Bld) [Mass/Vol] 13.0 g/dL 12.0-15.0 [facility] Potassium [Moles/Vol] 3.5 mmol/L 3.5-5.1 [facility] Protein [Mass/Vol] 6.9 g/dL 6.4-8.2 [facility] Sodium [Moles/Vol] 141 mmol/L 136-145 [facility] WBC (Bld) [#/Vol] 9.6 10*3/uL 4.4-11.0 [facility] Determination of erythrocyte mean corpuscular volume (MCV)Ordered By: Fortunato Yap on 11-22-2023 MCV (RBC) [Entitic vol] 98.0 fL 81-99 [facility] Direct bilirubinOrdered By: Fortunato Yap on 11-22-2023 Bilirubin.direct [Mass/Vol] 0.11 mg/dL 0.00-0.30 [facility] Erythrocyte distribution wid th ratioOrdered By: Fortunato Yap on 11-22-2023 Erythrocyte distribution width (RBC) [Ratio] 12.2 % 11.6-14.6 [facility] Erythrocyte distribution wid th standard deviationOrdered By: Fortunato Yap on 11-22-2023 Erythrocyte distribution width (RBC) [Entitic vol] 43.5 fL 35.1-43.9 [facility] Hematocrit Auto (Bld) [Volum e fraction]Ordered By: Fortunato Yap on 11-22-2023 Hematocrit (Bld) [Volume fraction] 39.0 % 37-47 [facility] Laboratory - Chemistry and C hemistry - challengeOrdered By: Fortunato Yap on 11-22-2023 ALP [Catalytic activity/Vol] 52 U/L 45-117 [facility] ALT [Catalytic activity/Vol] 23 U/L 13-56 [facility] CO2 [Moles/Vol] 24.0 mmol/L 21.0-32.0 [facility] Globulin (S) [Mass/Vol] 3.3 g/dL 2.2-4.2 [facility] Urea nitrogen/Creatinine [Mass ratio] 11.1 mg/mg 10-20 [facility] HCG ( test) Ql (U) Negative [facility] Comment on above: Very dilute urine sp ecimens, as indicated by a low specificgravity, may not contain medical device sales representative levels of hCG. If is still suspected, a first morning urinespecimen should be collected 48 hours later and tested. Laboratory - CoagulationOrde red By: Fortunato Yap on 11-22-2023 INR Coag (Bld) [Relative time] 1.0 {INR} [facility] PT Coag (PPP) [Time] 13.6 s 11.7-14.9 [facility] Laboratory - Hematology and Cell countsOrdered By: Fortunato Yap on 11-22-2023 MCH (RBC) [Entitic mass] 32.7 pg 27.0-32.0 [facility] MCHC (RBC) [Mass/Vol] 33.3 g/dL 32-36 [facility] Platelet mean volume (Bld) [Entitic vol] 8.5 fL 6.2-12.0 [facility] Platelets (Bld) [#/Vol] 303 10*3/uL 150-450 [facility] No Panel InformationOrdered By: Fortunato Yap on 11-22-2023 Estimated Creatinine Clearance Calc 182.94 ml/min [facility] Estimated GFR (MDRD) Amer 127 mL/min >60 [facility] Comment on above: GFR Calc Estimated GFR (MDRD) Non-Af Amer 105 mL/min >60 [facility] Comment on above: Non- GFR Calc RBC Auto (Bld) [#/Vol]Ordere d By: Fortunato Yap on 11-22-2023 RBC (Bld) [#/Vol] 3.98 10*6/uL 4.2-5.4 [facility] Serum or plasma calcium jalyn urement (mass/volume)Ordered By: Fortunato Yap on 11-22-2023 Calcium [Mass/Vol] 8.6 mg/dL 8.5-10.1 [facility] Serum or plasma creatinine m easurement (mass/volume)Ordered By: Fortunato Yap on 11-22-2023 Creatinine [Mass/Vol] 0.72 mg/dL 0.55-1.02 [facility] Comment on above: The validity of the calculated GFR & GFRAA in patients over 70 years has not been determined. Clinical correlation is essential. Serum or plasma urea nitroge n measurement (mass/volume)Ordered By: Fortunato Yap on 11-22-2023 Urea nitrogen [Mass/Vol] 8 mg/dL 7-18 [facility] Thin prep Papanicolaou smear with manual screeningOrdered By: Indio Olivares on 11-22-2023 Thin prep Papanicolaou smear with manual screening 165 mg/dL 74-106 [facility] Comment on above: MANAGEMENT OF PATIEN T CARE PER NURSING PROTOCOL Thin prep Papanicolaou smear with manual screeningOrdered By: Fortunato Yap on 11-22-2023 Thin prep Papanicolaou smear with manual screening 3.6 g/dL 3.2-5.0 [facility] Thin prep Papanicolaou smear with manual screening 15 U/L 15-37 [facility] Thin prep Papanicolaou smear with manual screening 7 5-15 [facility] CVFLURVon 10-25-2023 FLU A PCR Negative Normal Negative [facility] ([place] Comment on above: Performed By: #### C VFLURV, STREPA ####[facility] [address] [place], [place] [address] FLU B PCR Negative Normal Negative [facility] [place] Comment on above: Performed By: #### C VFLURV, STREPA ####[facility] [address] [place], [place] [address] RSV PCR Negative Normal Negative [facility] ([place] Comment on above: Performed By: #### C VFLURV, STREPA ####[facility] [address] [place], [place] [address] SARS-CoV-2 (COVID-19) RNA GREYSON+probe Ql (Unsp spec) Negative Normal Negative [facility] ([place] Comment on above: Result Comment: Resu lts [...] inaccurate positive results. Performed By: #### C VFLURV, STREPA ####[facility] [address] [place], [place] [address] STREPAon 10-25-2023 [facility] Strep PCR Not detected Normal Not Detected [facility] ([place] Comment on above: Performed By: #### C VFLURV, STREPA ####[facility] [address] [place], [place] [address] [facility] Strep PCR Int Normal [facility] ([place]) Comment on above: Result Comment: Nega tive [...] infections. See Interp Performed By: #### C VFLURV, STREPA ####[facility] [address] [place], [place] [address] LABORATORYOrdered By: Edith Rodriguez on 10-24-2023 FLUAV [...] HbA1c (Bld) [Mass fraction] 5.9 % 4.2-6.3 [facility] Serum or plasma thyroid stim ulating hormone (TSH) measurement (units/volume)Ordered By: Eliazar Amos on 10-12-2023 TSH Qn 0.87 uIU/mL 0.358-3.74 [facility] Thin prep Papanicolaou smear with manual screeningOrdered By: ernieloranesharon Amos on 10-12-2023 Thin prep Papanicolaou smear with manual screening 0.88 ng/dL 0.76-1.46 [facility] Absolute lymphocyte countOrd ered By: ernieloranesharon Amos on 08-03-2023 Lymphocytes Auto (Unsp spec) [#/Vol] 2.77 10*3/uL 0.83-4.51 [facility] Basophil percentageOrdered B y: Eliazar Amos on 08-03-2023 Basophils/100 WBC (Bld) 0.2 % 0-1 [facility] Bilirubin [Mass/Vol] 0.20 mg/dL 0.20-1.00 [facility] Comment on above: For patients on eltr ombopag therapy, use of Dimension [place] TBIL is not recommended. Chloride [Moles/Vol] 106 mmol/L 98-107 [facility] Eosinophils/100 WBC (Bld) 1.1 % 0-5 [facility] Glucose [Mass/Vol] 90 mg/dL 74-106 [facility] Neutrophils (Bld) [#/Vol] 5.1 10*3/uL 2.0-7.7 [facility] Neutrophils/100 WBC (Bld) 61.4 % 47-70 [facility] Potassium [Moles/Vol] 4.1 mmol/L 3.5-5.1 [facility] Protein [Mass/Vol] 7.6 g/dL 6.4-8.2 [facility] Sodium [Moles/Vol] 140 mmol/L 136-145 [facility] WBC (Bld) [#/Vol] 8.4 10*3/uL 4.4-11.0 [facility] Blood erythrocytes count (nu mber/volume)Ordered By: Eliazar Amos on 08-03-2023 RBC (Bld) [#/Vol] 4.09 10*6/uL 4.2-5.4 [facility] Blood hemoglobin measurement (mass/volume)Ordered By: Eliazar Eduardbonnycyn on 08-03-2023 Hemoglobin (Bld) [Mass/Vol] 14.0 g/dL 12.0-15.0 [facility] Blood lymphocytes/100 leukoc ytesOrdered By: elijah Amos on 08-03-2023 Lymphocytes/100 WBC (Bld) 33.2 % 19-41 [facility] Blood monocytes/100 leukocyt esOrdered By: [facility] Ricasharon Chapabonnycyn on 08-03-2023 Monocytes/100 WBC (Bld) 4.0 % 0-10 [facility] Blood platelet mean volumeOr dered By: ernieloranesharon Eduardbonnycyn on 08-03-2023 Platelet mean volume (Bld) [Entitic vol] 8.9 fL 6.2-12.0 [facility] Determination of erythrocyte mean corpuscular volume (MCV)Ordered By: Edwinelijah Amos on 08-03-2023 MCV (RBC) [Entitic vol] 101.0 fL 81-99 [facility] Hematocrit Auto (Bld) [Volum e fraction]Ordered By: [facility] Ricasharon Eduardbonnycyn on 08-03-2023 Hematocrit (Bld) [Volume fraction] 41.3 % 37-47 [facility] Laboratory - Chemistry and C hemistry - challengeOrdered By: ernieloranesharon Amos on 08-03-2023 ALP [Catalytic activity/Vol] 58 U/L 45-117 [facility] ALT [Catalytic activity/Vol] 39 U/L 13-56 [facility] CO2 [Moles/Vol] 30.0 mmol/L 21.0-32.0 [facility] Globulin (S) [Mass/Vol] 3.9 g/dL 2.2-4.2 [facility] Urea nitrogen/Creatinine [Mass ratio] 19.5 mg/mg 10-20 [facility] Laboratory - Hematology and Cell countsOrdered By: ernieloranesharon Amos on 08-03-2023 Erythrocyte distribution width (RBC) [Entitic vol] 43.4 fL 35.1-43.9 [facility] Erythrocyte distribution width (RBC) [Ratio] 11.9 % 11.6-14.6 [facility] Immature granulocytes/100 WBC (Bld) 0.100 % 0.0-0.9 [facility] Comment on above: IG% - Immature Granu locytes (promyelocytes, myelocytes and metamyelocytes) > 1% indicates that a LEFT SHIFT is Present. MCH (RBC) [Entitic mass] 34.2 pg 27.0-32.0 [facility] Nucleated RBC/100 WBC (Bld) [Ratio] 0 % 0-5 [facility] Laboratory - Hematology and Cell countson 08-03-2023 HbA1c (Bld) [Mass fraction] 6.8 % 4.2-6.3 [facility] MCHC Auto (RBC) [Mass/Vol]Or dered By: Eliazar Amos on 08-03-2023 MCHC (RBC) [Mass/Vol] 33.9 g/dL 32-36 [facility] No Panel InformationOrdered By: Eliazar Amos on 08-03-2023 Estimated GFR (MDRD) Amer 128 mL/min >60 [facility] Comment on above: GFR Calc Estimated GFR (MDRD) Non-Af Amer 105 mL/min >60 [facility] Comment on above: Non- GFR Calc Platelets bldOrdered By: Minh Amos on 08-03-2023 Platelets (Bld) [#/Vol] 294 10*3/uL 150-450 [facility] Serum or plasma albumin jalyn urement (mass/volume)Ordered By: Eliazar Amos on 08-03-2023 Albumin [Mass/Vol] 3.7 g/dL 3.2-5.0 [facility] Serum or plasma albumin/glob ulin mass ratioOrdered By: Eliazar Amos on 08-03-2023 Albumin/Globulin [Mass ratio] 0.9 {ratio} 0.9-2.4 [facility] Serum or plasma calcium jalyn urement (mass/volume)Ordered By: Eliazar Amos on 08-03-2023 Calcium [Mass/Vol] 9.4 mg/dL 8.5-10.1 [facility] Serum or plasma creatinine m easurement (mass/volume)Ordered By: Eliazar Amos on 08-03-2023 Creatinine [Mass/Vol] 0.72 mg/dL 0.55-1.02 [facility] Comment on above: The validity of the calculated GFR & GFRAA in patients over 70 years has not been determined. Clinical correlation is essential. Serum or plasma urea nitroge n measurement (mass/volume)Ordered By: Eliazar Amos on 08-03-2023 Urea nitrogen [Mass/Vol] 14 mg/dL 03-21 [facility] Thin prep Papanicolaou smear with manual screeningOrdered By: Eliazar Amos on 08-03-2023 Thin prep Papanicolaou smear with manual screening 18 U/L 15 [facility] Thin prep Papanicolaou smear with manual screening 4 5- [facility] HEMOGLOBIN A1C (POC)on 06-21 HbA1c (Bld) [Mass fraction] 9.1 % Abnormal 4.2 - 5.6 % [facility] US THYROID/PARATHYROIDon [facility] Absolute lymphocyte countOrd ered By: Eliazar Amos on 05-11-2023 Lymphocytes Auto (Unsp spec) [#/Vol] 2.33 10*3/uL 0.83-4.51 [facility] Basophil percentageOrdered B y: Eliazar Amos on 05-11-2023 Basophils/100 WBC (Bld) 0.4 % 0-1 [facility] Bilirubin [Mass/Vol] 0.40 mg/dL 0.20-1.00 [facility] Comment on above: For patients on eltr ombopag therapy, use of Dimension [place] TBIL is not recommended. Chloride [Moles/Vol] 107 mmol/L 98-107 [facility] Eosinophils/100 WBC (Bld) 1.9 % 0-5 [facility] Glucose [Mass/Vol] 286 mg/dL 74-106 [facility] Comment on above: Glucose result great er than or equal to 200 mg/dLsuggests DIABETES MELLITUS per A.D.A. criteria. Neutrophils (Bld) [#/Vol] 6.9 10*3/uL 2.0-7.7 [facility] Neutrophils/100 WBC (Bld) 69.7 % 47-70 [facility] Potassium [Moles/Vol] 3.7 mmol/L 3.5-5.1 [facility] Protein [Mass/Vol] 7.2 g/dL 6.4-8.2 [facility] Sodium [Moles/Vol] 139 mmol/L 136-145 [facility] WBC (Bld) [#/Vol] 9.8 10*3/uL 4.4-11.0 [facility] Blood erythrocytes count (nu mber/volume)Ordered By: Eliazar Amos on 05-11-2023 RBC (Bld) [#/Vol] 4.21 10*6/uL 4.2-5.4 [facility] Blood hemoglobin measurement (mass/volume)Ordered By: Eliazar Amos on 05-11-2023 Hemoglobin (Bld) [Mass/Vol] 14.1 g/dL 12.0-15.0 [facility] Blood lymphocytes/100 leukoc ytesOrdered By: Eliazar Amos on 05-11-2023 Lymphocytes/100 WBC (Bld) 23.7 % 19-41 [facility] Blood monocytes/100 leukocyt esOrdered By: Eliazar Amos on 05-11-2023 Monocytes/100 WBC (Bld) 4.1 % 0-10 [facility] Blood platelet mean volumeOr dered By: Eliazar Amos on 05-11-2023 Platelet mean volume (Bld) [Entitic vol] 9.3 fL 6.2-12.0 [facility] Determination of erythrocyte mean corpuscular volume (MCV)Ordered By: Eliazar Amos on 05-11-2023 MCV (RBC) [Entitic vol] 98.8 fL 81-99 [facility] Hematocrit Auto (Bld) [Volum e fraction]Ordered By: Eliazar Amos on 05-11-2023 Hematocrit (Bld) [Volume fraction] 41.6 % 37-47 [facility] Laboratory - Chemistry and C hemistry - challengeOrdered By: Eliazar Amos on 05-11-2023 ALP [Catalytic activity/Vol] 66 U/L 45-117 [facility] ALT [Catalytic activity/Vol] 32 U/L 13-56 [facility] CO2 [Moles/Vol] 26.0 mmol/L 21.0-32.0 [facility] Globulin (S) [Mass/Vol] 3.8 g/dL 2.2-4.2 [facility] Urea nitrogen/Creatinine [Mass ratio] 14.8 mg/mg 10-20 [facility] - Hematology and Cell countsOrdered By: Eliazar Amos on 05-11-2023 Erythrocyte distribution width (RBC) [Entitic vol] 42.1 fL 35.1-43.9 [facility] Erythrocyte distribution width (RBC) [Ratio] 11.7 % 11.6-14.6 [facility] Immature granulocytes/100 WBC (Bld) 0.200 % 0.0-0.9 [facility] Comment on above: IG% - Immature Granu locytes (promyelocytes, myelocytes and metamyelocytes) > 1% indicates that a LEFT SHIFT is Present. MCH (RBC) [Entitic mass] 33.5 pg 27.0-32.0 [facility] Nucleated RBC/100 WBC (Bld) [Ratio] 0 % 0-5 [facility] MCHC Auto (RBC) [Mass/Vol]Or dered By: Eliazar Amos on 05-11-2023 MCHC (RBC) [Mass/Vol] 33.9 g/dL 32-36 [facility] No Panel InformationOrdered By: Eliazar Amos on 05-11-2023 Estimated GFR (MDRD) Amer 111 mL/min >60 [facility] Comment on above: GFR Calc Estimated GFR (MDRD) Non-Af Amer 92 mL/min >60 [facility] Comment on above: Non- GFR Calc Platelets bldOrdered By: Minh Amos on 05-11-2023 Platelets (Bld) [#/Vol] 290 10*3/uL 150-450 [facility] Serum or plasma albumin jalyn urement (mass/volume)Ordered By: Eliazar Amos on 05-11-2023 Albumin [Mass/Vol] 3.4 g/dL 3.2-5.0 [facility] Serum or plasma albumin/glob ulin mass ratioOrdered By: Eliazar Amos on 05-11-2023 Albumin/Globulin [Mass ratio] 0.9 {ratio} 0.9-2.4 [facility] Serum or plasma calcium jalyn urement (mass/volume)Ordered By: Eliazar Amos on 05-11-2023 Calcium [Mass/Vol] 9.1 mg/dL 8.5-10.1 [facility] Serum or plasma creatinine m easurement (mass/volume)Ordered By: Eliazar Amos on 05-11-2023 Creatinine [Mass/Vol] 0.81 mg/dL 0.55-1.02 [facility] Comment on above: The validity of the calculated GFR & GFRAA in patients over 70 years has not been determined. Clinical correlation is essential. Serum or plasma urea nitroge n measurement (mass/volume)Ordered By: Eliazar Amos on 05-11-2023 Urea nitrogen [Mass/Vol] 12 mg/dL 7-18 [facility] Thin prep Papanicolaou smear with manual screeningOrdered By: Eliazar Amos on 05-11-2023 Thin prep Papanicolaou smear with manual screening 16 U/L 15-37 [facility] Thin prep Papanicolaou smear with manual screening 6 5-15 [facility] - Hematology and Cell countson 05-03-2023 HbA1c (Bld) [Mass fraction] 11.9 % 4.2-6.3 [facility] ALBUMIN/CREAT RATIO RND URon 04-06-2023 Albumin DL <= 20 mg/L (U) [Mass/Vol] [facility] Albumin/Creatinine (U) [Mass ratio] <30 mg/g [facility] Creatinine (U) [Mass/Vol] 128.4 mg/dL 20.0 - 300.0 mg/dL [facility] LIPID PANEL, NONFASTINGon Cholesterol [Mass/Vol] 184 mg/dL <200 mg/dL [facility] HDL Cholesterol, Nonfasting 36 mg/dL Low >39 mg/dL [facility] LDL Cholesterol, Nonfasting 106 mg/dL High <100 mg/dL [facility] LDL/HDL Ratio, Nonfasting 2.94 mg/dL High <2.54 mg/dL [facility] Non HDL Cholesterol, Nonfasting 148 mg/dL High <130 mg/dL [facility] Total Chol/HDL Ratio, Nonfasting 5.11 mg/dL High <5.10 mg/dL [facility] Triglycerides, Nonfasting 210 mg/dL High <150 mg/dL [facility] VLDL Cholesterol, Nonfasting 42 mg/dL High <30 mg/dL [facility] T4 FREE/FREE THYROXon 2022 Free T4 [Mass/Vol] 1.0 ng/dL 0.9 - 1.7 ng/dL [facility] TSH BLDon 04-06-2023 TSH Qn 0.777 m[IU]/L 0.270 - 4.200 mIU/L [facility] Comprehensive metabolic 2000 panelon 04-05-2023 Albumin [Mass/Vol] 4.1 g/dL 3.9 - 4.9 g/dL [facility] ALP [Catalytic activity/Vol] 72 U/L 34 - 123 U/L [facility] ALT [Catalytic activity/Vol] 30 U/L 7 - 38 U/L [facility] Anion gap [Moles/Vol] 13 mmol/L 9 - 18 mmol/L [facility] AST [Catalytic activity/Vol] 21 U/L 13 - 35 U/L [facility] Bilirubin [Mass/Vol] 0.2 mg/dL 0.2 - 1 .3 mg/dL [facility] Calcium [Mass/Vol] 9.6 mg/dL 8.5 - 10. 2 mg/dL [facility] Chloride [Moles/Vol] 102 mmol/L 97 - 10 5 mmol/L [facility] CO2 [Moles/Vol] 24 mmol/L 22 - 30 mmol/L [facility] Creatinine [Mass/Vol] 0.60 mg/dL 0.58 - 0.96 mg/dL [facility] Estimated Glomerular Filtration Rate 129 mL/min/1.73m >=60 mL/min/1.73 m [facility] Glucose [Mass/Vol] 235 mg/dL High 74 - 99 mg/dL [facility] Potassium [Moles/Vol] 3.8 mmol/L 3.7 - 5.1 mmol/L [facility] Protein [Mass/Vol] 6.9 g/dL 6.3 - 8.0 g/dL [facility] Sodium [Moles/Vol] 139 mmol/L 136 - 144 mmol/L [facility] Urea nitrogen [Mass/Vol] 14 mg/dL 7 - 21 mg/dL [facility] HbA1c (Bld)on 04-05-2023 Average glucose Estimated from glycated hemoglobin (Bld) [Mass/Vol] 266 mg/dL [facility] HbA1c (Bld) [Mass fraction] 10.9 % High 4.3 - 5.6 % [facility] THYROID PEROXIDASE ANTIBODY BLOODon 04-05-2023 TPO Ab Qn 5.2 [IU]/mL <5.6 IU/mL [facility] US PELVIS NON-OB W/TRANSVAGI NALon 03-22-2023 [...] Date: 03/22/2023 12:39:27 PM Ordering Provider: MARINE BACON [facility] ([place]) Specialist Field Engineer Cytology Reporton 2022 Specialist Field Engineer Cytology Report . Pathology Reports Accession: Collected Date/Time: Received Date/Time: Pathologist: [id number] 03/13/2023 11:09 EDT 03/13/2023 18:00 EDT TORREY WADE MD Specialist Field Engineer Cytology Report SPECIMEN: Specimen Description: Liquid Prep [...] and evaluated with the assistance of the [employer] ThinPrep Test Imaging System. Pathology Reports Accession: Collected Date/Time: Received Date/Time: Pathologist: [id number] 03/13/2023 11:09 EDT 03/13/2023 18:00 EDT TORREY WADE MD Electronically Signed by Pathology report verified by [facility] Screened by: ADIN ENCINAS Electronically signed by TORREY WADE Sign-Out Date: 03/21/2023 13:21 Performing Lab: [facility], [address] [place] [address] Pathology Dept Disclaimer The Pap test is a screening test for cervical cancer. As evidenced by published data, it is subject to both inherent false negative and false positive results. Your patient's results should be interpreted in context with pertinent clinical history including gynecological examination. Normal [facility] [place] HPVon 03-20-2023 HPV Interp Normal See Interp HPVN [facility] [place] Comment on above: Order Comment: Order placed by AP_HPV_ORDER rule from [id number] Result Comment: High Risk HPV Typing: NEGATIVE [...] and sufficient DNA to be detected. See [facility] HPVN Performed By: #### H PV ####[place] [address] HPV Source Cervix Normal [facility] [place] Comment on above: Order Comment: Order placed by AP_HPV_ORDER rule from [id number] Performed By: #### H PV ####[place] [address] Basophil percentageOrdered B y: Saulo Lacy on 03-16-2023 Bilirubin [Mass/Vol] 0.60 mg/dL 0.20-1.00 [facility] Comment on above: For patients on eltr ombopag therapy, use of Dimension [place] TBIL is not recommended. Chloride [Moles/Vol] 104 mmol/L 98-107 [facility] Glucose [Mass/Vol] 291 mg/dL 74-106 [facility] Comment on above: Glucose result great er than or equal to 200 mg/dLsuggests DIABETES MELLITUS per A.D.A. criteria. Potassium [Moles/Vol] 4.0 mmol/L 3.5-5.1 [facility] Protein [Mass/Vol] 7.6 g/dL 6.4-8.2 [facility] Sodium [Moles/Vol] 137 mmol/L 136-145 [facility] WBC (Bld) [#/Vol] 9.5 10*3/uL 4.4-11.0 [facility] Creatinine [Mass/Vol] 0.9 mg/dL 0.55-1.02 [facility] Blood erythrocytes count (nu mber/volume)Ordered By: Saulo Lacy on 03-16-2023 RBC (Bld) [#/Vol] 4.36 10*6/uL 4.2-5.4 [facility] Blood hemoglobin measurement (mass/volume)Ordered By: Saulo Lacy on 03-16-2023 Hemoglobin (Bld) [Mass/Vol] 15.2 g/dL 12.0-15.0 [facility] Blood platelet mean volumeOr dered By: Saulo Lacy on 03-16-2023 Platelet mean volume (Bld) [Entitic vol] 9.4 fL 6.2-12.0 [facility] Determination of erythrocyte mean corpuscular volume (MCV)Ordered By: Saulo Lacy on 03-16-2023 MCV (RBC) [Entitic vol] 98.2 fL 81-99 [facility] Hematocrit Auto (Bld) [Volum e fraction]Ordered By: Saulo Lacy on 03-16-2023 Hematocrit (Bld) [Volume fraction] 42.8 % 37-47 [facility] Laboratory - Chemistry and C hemistry - challengeOrdered By: Charleston Oscar on 03-16-2023 ALP [Catalytic activity/Vol] 74 U/L 45-117 [facility] ALT [Catalytic activity/Vol] 46 U/L 13-56 [facility] CO2 [Moles/Vol] 27.0 mmol/L 21.0-32.0 [facility] Cobalamin (Vitamin B12) [Mass/Vol] 380 pg/mL 211-911 [facility] Free T4 [Mass/Vol] 0.99 ng/dL 0.76-1.46 [facility] Globulin (S) [Mass/Vol] 3.8 g/dL 2.2-4.2 [facility] Urea nitrogen/Creatinine [Mass ratio] 13.5 mg/mg 10-20 [facility] Laboratory - Hematology and Cell countsOrdered By: Saulo Lacy on 03-16-2023 Erythrocyte distribution width (RBC) [Entitic vol] 43.1 fL 35.1-43.9 [facility] Erythrocyte distribution width (RBC) [Ratio] 11.9 % 11.6-14.6 [facility] MCH (RBC) [Entitic mass] 34.9 pg 27.0-32.0 [facility] MCHC Auto (RBC) [Mass/Vol]Or dered By: Saulo Lacy on 03-16-2023 MCHC (RBC) [Mass/Vol] 35.5 g/dL 32-36 [facility] No Panel InformationOrdered By: Saulo Lacy on 03-16-2023 Estimated GFR (MDRD) Amer 101 mL/min >60 [facility] Comment on above: GFR Calc Estimated GFR (MDRD) Non-Af Amer 83 mL/min >60 [facility] Comment on above: Non- GFR Calc Thyroid Stimulating Hormone (TSH) 1.45 uIU/mL 0.358-3.74 [facility] Whole Blood Vitamin B1 Level 143.8 nmol/L 66.5-200.0 [facility] Comment on above: Performed at: [address] [id number] Director: Tim Altamirano MD, Phone: [phone] Bedside Estimated GFR (eGFR) > 60.0000 mL/min >60 [facility] Platelets bldOrdered By: Solo Lacy on 03-16-2023 Platelets (Bld) [#/Vol] 295 10*3/uL 150-450 [facility] Serum or plasma albumin jalyn urement (mass/volume)Ordered By: Saulo Lacy on 03-16-2023 Albumin [Mass/Vol] 3.8 g/dL 3.2-5.0 [facility] Serum or plasma albumin/glob ulin mass ratioOrdered By: Saulo Lacy on 03-16-2023 Albumin/Globulin [Mass ratio] 1.0 {ratio} 0.9-2.4 [facility] Serum or plasma calcitriol m easurement (mass/volume)Ordered By: Saulo Lacy on 03-16-2023 1,25-dihydroxyvitamin D3 [Mass/Vol] 49.1 pg/mL 24.8-81.5 [facility] Comment on above: Performed at: - [address] [id number] Director: Tim Altamirano MD, Phone: [phone] Serum or plasma calcium jalyn urement (mass/volume)Ordered By: Saulo Lacy on 03-16-2023 Calcium [Mass/Vol] 9.3 mg/dL 8.5-10.1 [facility] Serum or plasma creatinine m easurement (mass/volume)Ordered By: Sauloshreya Lacy on 03-16-2023 Creatinine [Mass/Vol] 0.89 mg/dL 0.55-1.02 [facility] Comment on above: The validity of the calculated GFR & GFRAA in patients over 70 years has not been determined. Clinical correlation is essential. Serum or plasma folate measu rement (mass/volume)Ordered By: Saulo Lacy on 03-16-2023 Folate [Mass/Vol] 19.50 ng/mL 3.1-55.4 [facility] Serum or plasma urea nitroge n measurement (mass/volume)Ordered By: Sauloshreay Lacy on 03-16-2023 Urea nitrogen [Mass/Vol] 12 mg/dL 7-18 [facility] Thin prep Papanicolaou smear with manual screeningOrdered By: Charleston Oscar on 03-16-2023 Thin prep Papanicolaou smear with manual screening 17 U/L 15-37 [facility] Thin prep Papanicolaou smear with manual screening 6 5-15 [facility] CTPCRon 03-14-2023 C. trachomatis Interp Normal See CT Interp N [facility] [place] Comment on above: Result Comment: C. t rachomatis DNA not detected. Specimen is presumptive negative for C. trachomatis. A negative result does not preclude C. trachomatis infection because results depend on adequate specimen collection, absence of inhibitors, and sufficient DNA to be detected. See CT Interp N Performed By: #### N GPCR1, CTPCR #### [place] [address] C.trachomatis PCR Negative Normal Negative [facility] [place] Comment on above: Result Comment: Mole cular (PCR) assay performed on the [employer] 4800 system. Performed By: #### N GPCR1, CTPCR #### [address] [address] Chlam Source Urine Normal [facility] [place] Comment on above: Performed By: #### N GPCR1, CTPCR #### [place] [address] [id number] 03-14-2023 GC PCR Source Urine Normal [facility] [place] Comment on above: Performed By: #### N GPCR1, CTPCR #### [place] [address] N. gonorrhoeae (PCR) Negative Normal Negative [facility] ([place]) Comment on above: Result Comment: Mole cular (PCR) assay performed on the [employer] 4800 System. Performed By: #### N GPCR1, CTPCR #### [place] [address] N. gonorrhoeae Interp Normal See NG Interp N [facility] [place] Comment on above: Result Comment: N. g onorrhoeae DNA not detected. Specimen is presumptive negative for N. gonorrhoeae. A negative result does not preclude Neisseria gonorrhoeae infection because results depend on adequate specimen collection, absence of inhibitors, and sufficient DNA to be detected. See NG Interp N Performed By: #### N GPCR1, CTPCR #### [place] [address] LABORATORYOrdered By: Clarisse Parker on 03-13-2023 C. [...] or 2. Interpretative criteria are not available. [facility] Work Phone: XR KNEE THREE VIEWS RIGHTon [...] 12/09/2022 11:57:33 PM Ordering Provider: SPRING Alvarado [facility] [place] T4on 12-08-2022 T4 [Mass/Vol] 8.1 ug/dL Normal 4.5-10.9 [facility] [place] Comment on above: Result Comment: No te - New Reference Range in effect 20 Performed By: #### M DW, TSH, CBC, GFR, BMP, ADIFF, ANEU ####[place] [address]#### T4 ####[place] [address] .Auto Diffon 12-07-2022 Basophil, Absolute 0.0 10 3/mcL Normal 0.0-0.2 [facility] ([place] Comment on above: Performed By: #### M DW, TSH, CBC, GFR, BMP, ADIFF, ANEU #### [place] [address] #### T4 #### [place] [address] Basophils/100 WBC (Bld) 0.5 % Normal 0.0-2.5 [facility] ([place]) Comment on above: Performed By: #### M DW, TSH, CBC, GFR, BMP, ADIFF, ANEU #### [place] [address] #### T4 #### [place] [address] Eosinophil, Absolute 0.1 10 3/mcL Normal 0.0-0.4 [facility] ([place]) Comment on above: Performed By: #### M DW, TSH, CBC, GFR, BMP, ADIFF, ANEU #### [address] [address] #### T4 #### [address] [address] Eosinophils/100 WBC (Bld) 1.0 % Normal 0.0-7.0 [facility] [place] Comment on above: Performed By: #### M DW, TSH, CBC, GFR, BMP, ADIFF, ANEU #### [place] [address] #### T4 #### [address] [address] Lymphocyte, Absolute 2.7 10 3/mcL Normal 0.8-3.9 [facility] ([place] Comment on above: Performed By: #### M DW, TSH, CBC, GFR, BMP, ADIFF, ANEU #### [place] [address] #### T4 #### [address] [address] Lymphocytes/100 WBC (Bld) 33.6 % Normal 10.0-50.0 [facility] [place] Comment on above: Performed By: #### M DW, TSH, CBC, GFR, BMP, ADIFF, ANEU #### [place] [address] #### T4 #### [address] [address] Monocyte, Absolute 0.3 10 3/mcL Normal 0.2-1.0 [facility] ([place] Comment on above: Performed By: #### M DW, TSH, CBC, GFR, BMP, ADIFF, ANEU #### [place] [address] #### T4 #### [address] [address] Monocytes/100 WBC (Bld) 3.6 % Normal 1.7-13.0 [facility] ([place]) Comment on above: Performed By: #### M DW, TSH, CBC, GFR, BMP, ADIFF, ANEU #### [place] [id number] [place], [place] [address] #### T4 #### [facility] [address] [place] [address] Neutrophils/100 WBC (Bld) 61.3 % Normal 37.0-80.0 [facility] [place] Comment on above: Performed By: #### M DW, TSH, CBC, GFR, BMP, ADIFF, ANEU #### [address] [address] #### T4 #### [address] [address] .GFRon 12-07-2022 GFR 100 ml/min/1.73sqm Normal [facility] ([place]) Comment on above: Result Comment: GFR Population [...] DW, TSH, CBC, GFR, BMP, ADIFF, ANEU ####[place] [address] [place], [place] [address]#### T4 ####[facility] [place] [address] GFR Non- 83 ml/min/1.73sqm Normal [facility] ([place] Comment on above: Result Comment: GFR Population [...] DW, TSH, CBC, GFR, BMP, ADIFF, ANEU ####[place] [address]#### T4 ####[address] [address] .MDWon 12-07-2022 Monocyte Distribution Width 15.40 Normal 0.00-20.00 [facility] ([place] Comment on above: Result Comment: For ED adult patients suspected of sepsis, MDW<=20.0 does not rule out sepsis or risk of sepsis Performed By: #### M DW, TSH, CBC, GFR, BMP, ADIFF, ANEU #### [place] [address] #### T4 #### [place] [address] .NEUABSon 12-07-2022 Neutrophil, Absolute 4.9 10 3/mcL Normal 2.9-6.2 [facility] ([place]) Comment on above: Performed By: #### M DW, TSH, CBC, GFR, BMP, ADIFF, ANEU #### [place] [address] #### T4 #### [place] [address] BMPon 12-07-2022 BUN/Creatinine Ratio 12 ratio Normal 7-27 [facility] ([place] Comment on above: Performed By: #### M DW, TSH, CBC, GFR, BMP, ADIFF, ANEU #### [place] [address] #### T4 #### [place] [address] Calcium [Mass/Vol] 9.2 mg/dL Normal 8.4-10.2 [facility] ([place]) Comment on above: Performed By: #### M DW, TSH, CBC, GFR, BMP, ADIFF, ANEU #### [address] [address] #### T4 #### [address] [address] Chloride [Moles/Vol] 103 mmol/L Normal 98-107 [facility] ([place]) Comment on above: Performed By: #### M DW, TSH, CBC, GFR, BMP, ADIFF, ANEU #### [address] [address] #### T4 #### [address] [address] CO2 [Moles/Vol] 28 mmol/L Normal 22-29 [facility] ([place]) Comment on above: Performed By: #### M DW, TSH, CBC, GFR, BMP, ADIFF, ANEU #### [place] [address] #### T4 #### [address] [address] Creatinine [Mass/Vol] 0.85 mg/dL Normal 0.55-1.02 [facility] ([place]) Comment on above: Performed By: #### M DW, TSH, CBC, GFR, BMP, ADIFF, ANEU #### [place] [address] #### T4 #### [address] [address] Electrolyte Balance 9.0 mEq/L Normal 4.0-15.0 [facility] ([place]) Comment on above: Performed By: #### M DW, TSH, CBC, GFR, BMP, ADIFF, ANEU #### [place] [address] #### T4 #### [address] [address] Glucose [Mass/Vol] 216 mg/dL High 70-105 [facility] ([place]) Comment on above: Performed By: #### M DW, TSH, CBC, GFR, BMP, ADIFF, ANEU #### [address] [address] #### T4 #### [address] [address] Potassium [Moles/Vol] 4.2 mmol/L Normal 3.5-5.1 [facility] ([place]) Comment on above: Performed By: #### M DW, TSH, CBC, GFR, BMP, ADIFF, ANEU #### [place] [address] #### T4 #### [address] [address] Sodium [Moles/Vol] 140 mmol/L Normal 136-145 [facility] ([place]) Comment on above: Performed By: #### M DW, TSH, CBC, GFR, BMP, ADIFF, ANEU #### [place] [address] #### T4 #### [place] [address] Urea nitrogen [Mass/Vol] 10 mg/dL Normal 7-18 [facility] ([place]) Comment on above: Performed By: #### M DW, TSH, CBC, GFR, BMP, ADIFF, ANEU #### [place] [address] #### T4 #### [address] [address] CBCon 12-07-2022 Erythrocyte distribution width (RBC) [Ratio] 13.0 % Normal 11.5-14.5 [facility] ([place]) Comment on above: Performed By: #### M DW, TSH, CBC, GFR, BMP, ADIFF, ANEU #### [place] [address] #### T4 #### [place] [address] Hematocrit (Bld) [Volume fraction] 41.1 % Normal 37.0-47.0 [facility] ([place]) Comment on above: Performed By: #### M DW, TSH, CBC, GFR, BMP, ADIFF, ANEU #### [place] [address] #### T4 #### [place] [address] Hgb 14.2 G/dL Normal 12.0-16.0 [facility] ([place]) Comment on above: Performed By: #### M DW, TSH, CBC, GFR, BMP, ADIFF, ANEU #### [place] [address] #### T4 #### [place] [address] MCH (RBC) [Entitic mass] 33.8 pg High 27.0-31.2 [facility] ([place]) Comment on above: Performed By: #### M DW, TSH, CBC, GFR, BMP, ADIFF, ANEU #### [place] [address] #### T4 #### [place] [address] MCHC 34.6 G/dL Normal 33.0-37.0 [facility] ([place]) Comment on above: Performed By: #### M DW, TSH, CBC, GFR, BMP, ADIFF, ANEU #### [place] [address] #### T4 #### [place] [address] MCV (RBC) [Entitic vol] 97.6 fL High 80.0-94.0 [facility] ([place]) Comment on above: Performed By: #### M DW, TSH, CBC, GFR, BMP, ADIFF, ANEU #### [place] [address] #### T4 #### [place] [address] Platelet 281 10 3/mcL Normal 130-400 [facility] ([place]) Comment on above: Performed By: #### M DW, TSH, CBC, GFR, BMP, ADIFF, ANEU #### [place] [address] #### T4 #### [place] [address] Platelet mean volume (Bld) [Entitic vol] 6.9 fL Low 7.4-10.4 [facility] ([place]) Comment on above: Performed By: #### M DW, TSH, CBC, GFR, BMP, ADIFF, ANEU #### [place] [address] #### T4 #### [place] [address] RBC 4.21 10 6/mcL Normal 4.20-5.40 [facility] ([place]) Comment on above: Performed By: #### M DW, TSH, CBC, GFR, BMP, ADIFF, ANEU #### [place] [address] #### T4 #### [place] [address] WBC 7.9 10 3/mcL Normal 4.6-10.8 [facility] ([place]) Comment on above: Performed By: #### M DW, TSH, CBC, GFR, BMP, ADIFF, ANEU #### [place] [address] #### T4 #### [place] [address] LABORATORYOrdered By: Brandon Walden on 12-07-2022 Basophil, [...] Invalid Interpretation Code 70 - 110 mg/dL [facility] Work Phone: TSHon 12-07-2022 TSH Qn 1.27 m[IU]/L Normal 0.36-3.74 [facility] ([place]) Comment on above: Performed By: #### M DW, TSH, CBC, GFR, BMP, ADIFF, ANEU #### [facility] [address] [place], [place] [address] #### T4 #### [address] [address] XR CHEST 2 VIEWSon 3 XR CHEST 2 VIEWS ORIGINAL EXAMINATION: TWO XRAY VIEWS OF THE CHEST4/01/2023 1:17 pm COMPARISON: Chest radiograph 02/25/2021 and [...] Date: 12/07/2022 1:47:20 PM Ordering Provider[facility] XR NECK SOFT TISSUEon 2022 XR NECK [...] Date: 12/07/2022 1:36:44 PM Ordering Provider: [facility] Absolute lymphocyte counton 08-12-2022 Lymphocytes Auto (Unsp spec) [#/Vol] 2.19 10*3/uL 0.83-4.51 [facility] Work Phone: Basophil percentageon 2021 Basophils/100 WBC (Bld) 0.2 % 0-1 [facility] Work Phone: Chloride [Moles/Vol] 109 mmol/L 98-107 [facility] Work Phone: Eosinophils/100 WBC (Bld) 0.7 % 0-5 [facility] Work Phone: Glucose [Mass/Vol] 187 mg/dL 74-106 [facility] Work Phone: Comment on above: Fasting Glucose resu lt greater than or equal to 126 mg/dL suggests DIABETES MELLITUS per A.D.A. criteria. Neutrophils (Bld) [#/Vol] 6.8 10*3/uL 2.0-7.7 [facility] Work Phone: Neutrophils/100 WBC (Bld) 71.7 % 47-70 [facility] Work Phone: Potassium [Moles/Vol] 3.6 mmol/L 3.5-5.1 [facility] Work Phone: Sodium [Moles/Vol] 141 mmol/L 136-145 [facility] Work Phone: WBC (Bld) [#/Vol] 9.5 10*3/uL 4.4-11.0 [facility] Work Phone: Blood erythrocytes count (nu mber/volume)on 08-12-2022 RBC (Bld) [#/Vol] 4.29 10*6/uL 4.2-5.4 [facility] Work Phone: Blood hemoglobin measurement (mass/volume)on 08-12-2022 Hemoglobin (Bld) [Mass/Vol] 14.1 g/dL 12.0-15.0 [facility] Work Phone: Blood lymphocytes/100 leukoc yteson 08-12-2022 Lymphocytes/100 WBC (Bld) 23.0 % 19-41 [facility] Work Phone: Blood monocytes/100 leukocyt eson 08-12-2022 Monocytes/100 WBC (Bld) 4.0 % 0-10 [facility] Work Phone: [phone] Blood platelet mean volumeon 08-12-2022 Platelet mean volume (Bld) [Entitic vol] 8.9 fL 6.2-12.0 [facility] Work Phone: [phone] Determination of erythrocyte mean corpuscular volume (MCV)on 08-12-2022 MCV (RBC) [Entitic vol] 98.8 fL 81-99 [facility] Work Phone: [phone] Glucose Glucometer (BldC) [M ass/Vol]on 08-12-2022 Glucose [Mass/Vol] 186 mg/dL 74-106 [facility] Work Phone: [phone] Comment on above: MANAGEMENT OF PATIEN T CARE PER NURSING PROTOCOL Hematocrit Auto (Bld) [Volum e fraction]on 08-12-2022 Hematocrit (Bld) [Volume fraction] 42.4 % 37-47 [facility] Work Phone: [phone] Laboratory - Chemistry and C hemistry - challengeon 08-12-2022 CO2 [Moles/Vol] 29.0 mmol/L 21.0-32.0 [facility] Work Phone: [phone] Urea nitrogen/Creatinine [Mass ratio] 13.3 mg/mg 10-20 [facility] Work Phone: [phone] Laboratory - Hematology and Cell countson 08-12-2022 Erythrocyte distribution width (RBC) [Entitic vol] 44.1 fL 35.1-43.9 [facility] Work Phone: [phone] Erythrocyte distribution width (RBC) [Ratio] 12.1 % 11.6-14.6 [facility] Work Phone: [phone] Immature granulocytes/100 WBC (Bld) 0.400 % 0.0-0.9 [facility] Work Phone: [phone] Comment on above: IG% - Immature Granu locytes (promyelocytes, myelocytes and metamyelocytes) > 1% indicates that a LEFT SHIFT is Present. MCH (RBC) [Entitic mass] 32.9 pg 27.0-32.0 [facility] Work Phone: [phone] Nucleated RBC/100 WBC (Bld) [Ratio] 0 % 0-5 [facility] Work Phone: MCHC Auto (RBC) [Mass/Vol]on 08-12-2022 MCHC (RBC) [Mass/Vol] 33.3 g/dL 32-36 [facility] Work Phone: No Panel Informationon 08-12 Estimated Creatinine Clearance Calc 117.82 ml/min [facility] Work Phone: Estimated GFR (MDRD) Amer 110 mL/min >60 [facility] Work Phone: Comment on above: GFR Calc Estimated GFR (MDRD) Non-Af Amer 91 mL/min >60 [facility] Work Phone: Comment on above: Non- GFR Calc Troponin I High Sensitivity 5 pg/mL 3.0-54.0 [facility] Work Phone: Comment on above: Please Note: New Emy t Units and Gender Specific Reference Ranges. For more information see Policy Stat Procedure [place] High Sensitivity Troponin (TNIH) and attachments. Platelets bldon 08-12-2022 Platelets (Bld) [#/Vol] 264 10*3/uL 150-450 [facility] Work Phone: Serum or plasma calcium jalyn urement (mass/volume)on 08-12-2022 Calcium [Mass/Vol] 9.5 mg/dL 8.5-10.1 [facility] Work Phone: [phone] Serum or plasma creatinine m easurement (mass/volume)on 08-12-2022 Creatinine [Mass/Vol] 0.83 mg/dL 0.55-1.02 [facility] Work Phone: Comment on above: The validity of the calculated GFR & GFRAA in patients over 70 years has not been determined. Clinical correlation is essential. Serum or plasma urea nitroge n measurement (mass/volume)on 08-12-2022 Urea nitrogen [Mass/Vol] 11 mg/dL 7-18 [facility] Work Phone: Thin prep Papanicolaou smear with manual screeningon 08-12-2022 Thin prep Papanicolaou smear with manual screening 3 5-15 [facility] Work Phone: Absolute lymphocyte counton 06-15-2022 Lymphocytes Auto (Unsp spec) [#/Vol] 3.02 10*3/uL 0.83-4.51 [facility] Work Phone: Basophil percentageon 2021 Basophils/100 WBC (Bld) 0.3 % 0-1 [facility] Work Phone: Bilirubin [Mass/Vol] 0.40 mg/dL 0.20-1.00 [facility] Work Phone: Comment on above: For patients on eltr ombopag therapy, use of Dimension [place] TBIL is not recommended. Chloride [Moles/Vol] 108 mmol/L 98-107 [facility] Work Phone: Cholesterol [Mass/Vol] 183 mg/dL <200 [facility] Work Phone: Comment on above: <200 mg/dL Desirable 200-240 mg/dL Borderline >240 mg/dL High Risk Eosinophils/100 WBC (Bld) 0.9 % 0-5 [facility] Work Phone: Glucose [Mass/Vol] 130 mg/dL 74-106 [facility] Work Phone: Comment on above: Fasting Glucose resu lt greater than or equal to 126 mg/dL suggests DIABETES MELLITUS per A.D.A. criteria. Neutrophils (Bld) [#/Vol] 6.7 10*3/uL 2.0-7.7 [facility] Work Phone: Neutrophils/100 WBC (Bld) 65.3 % 47-70 [facility] Work Phone: Potassium [Moles/Vol] 3.9 mmol/L 3.5-5.1 [facility] Work Phone: [phone] Protein [Mass/Vol] 7.7 g/dL 6.4-8.2 [facility] Work Phone: Sodium [Moles/Vol] 140 mmol/L 136-145 [facility] Work Phone: [phone] Triglyceride [Mass/Vol] 100 mg/dL <199 [facility] Work Phone: [phone] Comment on above: The drugs N-Acetylcy steine and Metamizole may falsely depress this assay.Serum Triglycerides Reference Interval Normal <150 mg/dL Borderline high 150 - 199 mg/dL High 200 - 499 mg/dL Very High > or = 500 mg/dL WBC (Bld) [#/Vol] 10.2 10*3/uL 4.4-11.0 [facility] Work Phone: Blood erythrocytes count (nu mber/volume)on 06-15-2022 RBC (Bld) [#/Vol] 4.28 10*6/uL 4.2-5.4 [facility] Work Phone: Blood hemoglobin measurement (mass/volume)on 06-15-2022 Hemoglobin (Bld) [Mass/Vol] 14.3 g/dL 12.0-15.0 [facility] Work Phone: [phone] Blood lymphocytes/100 leukoc yteson 06-15-2022 Lymphocytes/100 WBC (Bld) 29.7 % 19-41 [facility] Work Phone: [phone] Blood monocytes/100 leukocyt eson 06-15-2022 Monocytes/100 WBC (Bld) 3.4 % 0-10 [facility] Work Phone: [phone] Blood platelet mean volumeon 06-15-2022 Platelet mean volume (Bld) [Entitic vol] 9.0 fL 6.2-12.0 [facility] Work Phone: [phone] Determination of erythrocyte mean corpuscular volume (MCV)on 06-15-2022 MCV (RBC) [Entitic vol] 98.6 fL 81-99 [facility] Work Phone: [phone] Hematocrit Auto (Bld) [Volum e fraction]on 06-15-2022 Hematocrit (Bld) [Volume fraction] 42.2 % 37-47 [facility] Work Phone: [phone] Laboratory - Chemistry and C hemistry - challengeon 06-15-2022 ALP [Catalytic activity/Vol] 58 U/L 45-117 [facility] Work Phone: [phone] ALT [Catalytic activity/Vol] 31 U/L 13-56 [facility] Work Phone: [phone] CO2 [Moles/Vol] 27.0 mmol/L 21.0-32.0 [facility] Work Phone: [phone] Free T4 [Mass/Vol] 1.00 ng/dL 0.76-1.46 [facility] Work Phone: [phone] Globulin (S) [Mass/Vol] 3.9 g/dL 2.2-4.2 [facility] Work Phone: [phone] Urea nitrogen/Creatinine [Mass ratio] 15.2 mg/mg 10-20 [facility] Work Phone: [phone] Laboratory - Hematology and Cell countson 06-15-2022 Erythrocyte distribution width (RBC) [Entitic vol] 42.6 fL 35.1-43.9 [facility] Work Phone: [phone] Erythrocyte distribution width (RBC) [Ratio] 11.9 % 11.6-14.6 [facility] Work Phone: [phone] Immature granulocytes/100 WBC (Bld) 0.400 % 0.0-0.9 [facility] Work Phone: [phone] Comment on above: IG% - Immature Granu locytes (promyelocytes, myelocytes and metamyelocytes) > 1% indicates that a LEFT SHIFT is Present. MCH (RBC) [Entitic mass] 33.4 pg 27.0-32.0 [facility] Work Phone: [phone] Nucleated RBC/100 WBC (Bld) [Ratio] 0 % 0-5 [facility] Work Phone: [phone] MCHC Auto (RBC) [Mass/Vol]on 06-15-2022 MCHC (RBC) [Mass/Vol] 33.9 g/dL 32-36 [facility] Phone: [phone] Panel Informationon 06-15 Estimated GFR (MDRD) Amer 97 mL/min >60 [facility] Work Phone: Comment on above: GFR Calc Estimated GFR (MDRD) Non-Af Amer 80 mL/min >60 [facility] Work Phone: Comment on above: Non- GFR Calc Thyroid Stimulating Hormone (TSH) 1.66 uIU/mL 0.358-3.74 [facility] Work Phone: Platelets bldon 06-15-2022 Platelets (Bld) [#/Vol] 319 10*3/uL 150-450 [facility] Work Phone: Serum or plasma albumin jalyn urement (mass/volume)on 06-15-2022 Albumin [Mass/Vol] 3.8 g/dL 3.2-5.0 [facility] Work Phone: Serum or plasma albumin/glob ulin mass ratioon 06-15-2022 Albumin/Globulin [Mass ratio] 1.0 {ratio} 0.9-2.4 [facility] Work Phone: Serum or plasma calcium jalyn urement (mass/volume)on 06-15-2022 Calcium [Mass/Vol] 9.4 mg/dL 8.5-10.1 [facility] Work Phone: Serum or plasma cholesterol in HDL measurement (mass/volume)on 06-15-2022 Cholesterol in HDL [Mass/Vol] 38 mg/dL >40 [facility] Work Phone: Comment on above: The drugs N-Acetylcy steine and Metamizole may falsely depress this assay. Reference Range HDL <40 mg/dL Low HDL Cholesterol HDL >or= 60 mg/dL High HDL Cholesterol Serum or plasma cholesterol in VLDL measurement (mass/volume)on 06-15-2022 Cholesterol in VLDL [Mass/Vol] 20 mg/dL 5-40 [facility] Work Phone: Serum or plasma creatinine m easurement (mass/volume)on 06-15-2022 Creatinine [Mass/Vol] 0.92 mg/dL 0.55-1.02 [facility] Work Phone: Comment on above: The validity of the calculated GFR & GFRAA in patients over 70 years has not been determined. Clinical correlation is essential. Serum or plasma low density lipoprotein (LDL) cholesterol measurement (mass/volume)on 06-15-2022 Cholesterol in LDL [Mass/Vol] 125 mg/dL 0-130 [facility] Work Phone: [phone] Serum or plasma urea nitroge n measurement (mass/volume)on 06-15-2022 Urea nitrogen [Mass/Vol] 14 mg/dL 7-18 [facility] Work Phone: [phone] Thin prep Papanicolaou smear with manual screeningon 06-15-2022 Thin prep Papanicolaou smear with manual screening 16 U/L 15-37 [facility] Work Phone: [phone] Thin prep Papanicolaou smear with manual screening 5 5-15 [facility] Work Phone: [phone] Whole blood hemoglobin A1c/t otal hemoglobin ratio (mass fraction)on 06-15-2022 HbA1c (Bld) [Mass fraction] 6.1 % 3.8-5.6 [facility] Work Phone: Comment on above: Normal < 5.7 % Predi abetic 5.7 - 6.4 % Diabetic >or= 6.5 % Please note range changes. Laboratory - Hematology and Cell countson 06-07-2022 HbA1c (Bld) [Mass fraction] 5.7 % 4.2-6.3 [facility] Work Phone: [phone] Laboratory - Drug toxicology on 11-17-2021 Amphetamines Ql (U) Negative [facility] Work Phone: [phone] Benzodiazepines Ql (U) Negative [facility] Work Phone: [phone] Cannabinoids Screen Ql (U) Positive [facility] Work Phone: [phone] Cocaine Ql (U) Negative [facility] Work Phone: [phone] Opiates Ql (U) Negative [facility] Work Phone: [phone] Panel Informationon 11-17 MDMA (Ecstasy) Screen Negative [facility] Work Phone: Urine Barbiturates Screen Negative [facility] Work Phone: Urine Drug Screen Comment [facility] Work Phone: Comment on above: CONFIRMATORY [...] USE TESTMNEMONIC: [facility] Urine Methadone Screen Negative [facility] Work Phone: Urine phencyclidine (PCP) de tectionon 11-17-2021 Phencyclidine Ql (U) Negative [facility] Work Phone: ALLIED HEALTHon 02-21-2021 [facility] HNO ID: [id number] Author: Chaplain Jennifer Service: ? Author Type: Fruit Dumper Type: Allied Health Filed: 02/21/2021 6:30 PM Note Text: SPIRITUALCARE Spiritual Care Visit- Brief Note Name: Sugey [place] Date: February 21, 2021 Notes: Dis-charge Patient in need of clothing. Fruit Dumper delivered T shirt Fruit Dumper Signature: Chaplain Jennifer To contact the Spiritual Care Department: Please call [phone] or Page the On-Call Fruit Dumper at pager [phone] Thank you for the opportunity to be of service. This is an electronically created document. IF PRINTED, PLEASE DO NOT REMOVE FROM THE CHART OR MODIFY PRINTED COPY. [facility] ALLIED HEALTH HNO ID: [id number] Author: RT Alicia(R) Service: ? Author Type: Hvac Sales Representative Type: Allied Health Filed: 02/21/2021 3:52 PM [...] IV DATA: Not applicable SIGNED BY: RT Alicia(R) February 21, 2021 3:51 PM [facility] HNO ID: [id number] Author: RT Gifty(R) Service: Radiology Author Type: Hvac Sales Representative Type: [facility] Filed: 02/21/2021 1:56 AM Note Text: [...] IV DATA: Not applicable SIGNED BY: RT Gifty(R) February 21, 2021 1:56 AM [facility] HNO ID: [id number] Author: Chaplain Brenda Service: Spiritual Care Author Type: Fruit Dumper Type: [facility] Filed: 02/21/2021 12:00 PM Note Text: SPIRITUAL CARE PROGRESS NOTE SERVICE DATE: 02/21/2021 SERVICE TIME: 1:32 am Fruit Dumper resp'd to trauma alert per [facility] protocol. Patient is being serviced by multiple caregivers. Fruit Dumper met with aunt of patient in family room and introduced Spiritual Care department along with follow-up. Aunt grateful as physician updated on patient's status. Fruit Dumper escorted aunt to bedside and informed unit that another relative was en route. Fruit Dumper on standby if needed further. To contact the Spiritual Care Department: Please call [phone] SIGNATURE: Chaplain Brenda PATIENT NAME: Sugey West DATE: February 21, 2021 TIME: 11:56 AM PAGER/CONTACT #: [phone] Normal [facility] CBC panel Auto (Bld)on 02-21 Erythrocyte distribution width (RBC) [Ratio] 13.2 % Normal 11.5-15.0 [facility] Comment on above: Order Comment: Speci men Type: BLOOD SPECIMEN Performed By: #### 5 8410-2 ####[facility] LABORATORYCLIA [id number] [place] [address] Hematocrit (Bld) [Volume fraction] 44.7 % Normal 36.0-46.0 [facility] Comment on above: Order Comment: Speci men Type: BLOOD SPECIMEN Performed By: #### 5 8410-2 ####[facility] LABORATORYCLIA [id number] [place] [address] Hemoglobin (Bld) [Mass/Vol] 15.5 g/dL Normal 11.5-15.5 [facility] Comment on above: Order Comment: Speci men Type: BLOOD SPECIMEN Performed By: #### 5 8410-2 ####[facility] LABORATORYCLIA [id number] [place] [address] MCH (RBC) [Entitic mass] 32.2 pg Normal 26.0-34.0 [facility] Comment on above: Order Comment: Speci men Type: BLOOD SPECIMEN Performed By: #### 5 8410-2 ####[facility] LABORATORYCLIA [id number] [place] [address] MCHC (RBC) [Mass/Vol] 34.7 g/dL Normal 30.5-36.0 [facility] Comment on above: Order Comment: Speci men Type: BLOOD SPECIMEN Performed By: #### 5 8410-2 ####[facility] LABORATORYCLIA [id number] [place] [address] MCV (RBC) [Entitic vol] 92.9 fL Normal 80.0-100.0 [facility] Comment on above: Order Comment: Speci men Type: BLOOD SPECIMEN Performed By: #### 5 8410-2 ####[facility] LABORATORYCLIA [id number] [place] [address] Nucleated RBC (Bld) [#/Vol] 10*3/uL Normal <0.01 [facility] Comment on above: Order Comment: Speci men Type: BLOOD SPECIMEN Performed By: #### 5 8410-2 ####[facility] LABORATORYCLIA [id number] [place] [address] Platelet mean volume (Bld) [Entitic vol] 10.4 fL Normal 9.0-12.7 [facility] Comment on above: Order Comment: Speci men Type: BLOOD SPECIMEN Performed By: #### 5 8410-2 ####[facility] LABORATORYCLIA [id number] [place] [address] Platelets (Bld) [#/Vol] 268 10*3/uL Normal 150-400 [facility] Comment on above: Order Comment: Speci men Type: BLOOD SPECIMEN Performed By: #### 5 8410-2 ####[facility] LABORATORYCLIA [id number] [place] [address] RBC (Bld) [#/Vol] 4.81 10*6/uL Normal 3.90-5.20 [facility] Comment on above: Order Comment: Speci men Type: BLOOD SPECIMEN Performed By: #### 5 8410-2 ####[facility] LABORATORYCLIA [id number] [place] [address] WBC (Bld) [#/Vol] 11.25 10*3/uL High 3.70-11.00 [facility] Comment on above: Order Comment: Speci men Type: BLOOD SPECIMEN Performed By: #### 5 8410-2 ####[facility] LABORATORYCLIA [id number] [place] [address] SKYLERDSon 02-21-2021 [facility] HNO ID: [id number] Author: Antonia Norrsi MD Service: General Surgery Author Type: Physician [...] Surgery February 21, 2021 8:54 PM Normal [facility] CT ABD/PEL W IVCONon 021 CT ABD/PEL W IVCON * * *Final Report* * * DATE OF EXAM: Feb 21 2021 2:26AM [facility] 0530 - CT ABD/PEL W IVCON / [...] Automated exposure control(AEC) and iterative recon RESULT: TAX COMPLIANCE REPRESENTATIVE: Unremarkable. THORAX: Motion degrades exam. Within the [...] spine. Details and incidental findings as discussed. Associate Web Developer: PSCB Transcribe Date/Time: Feb 21 2021 2:40A Dictated by : GEORGE VYAS MD This examination was interpreted and the report reviewed and electronically signed by: GEORGE VYAS MD on Feb 21 2021 2:50AM EST [id number] Normal [facility] CT BRAIN WO IVCONon 02-22-20 CT BRAIN WO IVCON * * *Final Report* * * DATE OF EXAM: Feb 21 2021 2:14AM [facility] 0504 - CT BRAIN WO IVCON / [...] the patient is able to voluntarily cooperate. Associate Web Developer: ROSIE Transcribe Date/Time: Feb 21 2021 2:18A Dictated by : GEORGE VYAS MD This examination was interpreted and the report reviewed and electronically signed by: GEORGE VYAS MD on Feb 21 2021 2:20AM EST [id number] Normal [facility] CT CERVICAL SPINE WO IVCONon 02-21-2021 CT CERVICAL SPINE WO IVCON * * *Final Report* * * DATE OF EXAM: Feb 21 2021 2:14AM [facility] 0505 - CT CERVICAL SPINE WO IVCON [...] Counting reference: Craniocervical junction. Anatomic Variants: None. Payroll Accounting Manager (topogram) images: Alignment: Alignment is anatomic. Craniocervical [...] vertebrae with counting from the craniocervical junction. Associate Web Developer: ROSIE Transcribe Date/Time: Feb 21 2021 2:21A Dictated by : GEORGE VYAS MD This examination was interpreted and the report reviewed and electronically signed by: GEORGE VYAS MD on Feb 21 2021 2:28AM EST [id number] Normal [facility] CT CHEST W IVCONon 1 CT CHEST W IVCON * * *Final Report* * * DATE OF EXAM: Feb 21 2021 2:26AM [facility] 0539 - CT CHEST W IVCON / [...] Automated exposure control(AEC) and iterative recon RESULT: TAX COMPLIANCE REPRESENTATIVE: Unremarkable. THORAX: Motion degrades exam. Within the [...] spine. Details and incidental findings as discussed. Associate Web Developer: ROSIE Transcribe Date/Time: Feb 21 2021 2:40A Dictated by : GEORGE VYAS MD This examination was interpreted and the report reviewed and electronically signed by: GEORGE VYAS MD on Feb 21 2021 2:50AM EST [id number] Normal [facility] CT FACIAL BONE/BRIAN WO IVCON on 02-21-2021 CT FACIAL BONE/BRIAN WO IVCON * * *Final Report* * * DATE OF EXAM: Feb 21 2021 2:14AM [facility] 0507 - CT FACIAL BONE/BRIAN WO IVCON [...] Reduction Employed: Iterative recon COMPARISON: None. RESULT: Payroll Accounting Manager (topogram) images: No additional findings. Soft Tissues: [...] in the left nasal cavity and nasopharynx. Associate Web Developer: PSCB Transcribe Date/Time: Feb 21 2021 2:30A Dictated by : MATTIE FRYE MD This examination was interpreted and the report reviewed and electronically signed by: MATTIE FRYE MD on Feb 21 2021 2:47AM EST [id number] Normal [facility] CT LUMBAR SPINE W RECON DATA -NBon 02-21-2021 CT LUMBAR SPINE W RECON DATA -NB * * *Final Report* * * DATE OF EXAM: Feb 21 2021 2:26AM [facility] 0481 - CT LUMBAR SPINE W RECON [...] Automated exposure control(AEC) and iterative recon RESULT: TAX COMPLIANCE REPRESENTATIVE: Unremarkable. THORAX: Motion degrades exam. Within the [...] spine. Details and incidental findings as discussed. Associate Web Developer: ROSIE Transcribe Date/Time: Feb 21 2021 2:40A Dictated by : GEORGE VYAS MD This examination was interpreted and the report reviewed and electronically signed by: GEORGE VYAS MD on Feb 21 2021 2:50AM EST [id number] Normal [facility] CT T-SPINE W RECON DATA -NBo n 02-21-2021 CT T-SPINE W RECON DATA -NB * * *Final Report* * * DATE OF EXAM: Feb 21 2021 2:26AM [facility] 0485 - CT T-SPINE W RECON DATA [...] Automated exposure control(AEC) and iterative recon RESULT: TAX COMPLIANCE REPRESENTATIVE: Unremarkable. THORAX: Motion degrades exam. Within the [...] spine. Details and incidental findings as discussed. Associate Web Developer: PSCJulieth Transcribe Date/Time: Feb 21 2021 2:40A Dictated by : GEORGE VYAS MD This examination was interpreted and the report reviewed and electronically signed by: GEORGE VYAS MD on Feb 21 2021 2:50AM EST [id number] Normal [facility] Comprehensive metabolic 2000 panelon 02-21-2021 Albumin [Mass/Vol] 3.9 g/dL Normal 3.9-4.9 [facility] Comment on above: Order Comment: Speci men Type: BLOOD SPECIMEN Performed By: #### 2 4323-8 ####[facility]ORATORYCLIA [id number] [place] [address] ALP [Catalytic activity/Vol] 76 U/L Normal 34-123 [facility] Comment on above: Order Comment: Speci men Type: BLOOD SPECIMEN Performed By: #### 2 4323-8 ####[facility] LABORATORYCLIA [id number] [place] [address] ALT With P-5'-P [Catalytic activity/Vol] Normal [facility] Comment on above: Order Comment: Speci men Type: BLOOD SPECIMEN Result Comment: Unab le to assay due to interference from hemolysis. Suggest reorder as clinically indicated. Performed By: #### 2 4323-8 ####[facility] LABORATORYCLIA [id number] [place] [address] Anion gap [Moles/Vol] 16 mmol/L Normal 9-18 [facility] Comment on above: Order Comment: Speci men Type: BLOOD SPECIMEN Performed By: #### 2 4323-8 ####[facility] LABORATORYCLIA [id number] [place] [address] AST With P-5'-P [Catalytic activity/Vol] Normal [facility] Comment on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 Amos Work Phone: [facility] 11-22-2023 09:11-0400 Body weight 134.[address] Eliazar Amos Work Phone: [facility] 10-24-2023 22:07-0500 Body temperature 97.7 [degF] DR MAREN WAN MD [facility] 10-24-2023 22:07-0500 Diastolic Blood Pressure Non-Invasive 92 mm[Hg] DR MAREN WAN MD [facility] 10-24-2023 22:07-0500 Heart rate 74 /min DR MAREN WAN MD [facility] 10-24-2023 22:07-0500 Respiratory rate 18 /min DR MAREN WAN MD [facility] 10-24-2023 22:07-0500 Systolic Blood Pressure Non-Invasive 142 mm[Hg] DR MAREN WAN MD [facility] 10-12-2023 14:13-0500 Body height 180.[address] Eliazar Amos Work Phone: [facility] 10-12-2023 14:13-0500 Body mass index (BMI) [Ratio] 40.4 kg/m2 Dr. Eliazar Amos Work Phone: [facility] 10-12-2023 14:13-0500 Body temperature 97.9 [degF] Dr. Eliazar Amos Work Phone: [facility] 10-12-2023 14:13-0500 Body weight 131.[address] Eliazar Amos Work Phone: [facility] 10-12-2023 14:13-0500 Diastolic blood pressure 82 mm[Hg] Dr. Eliazar Amos Work Phone: [facility] 10-12-2023 14:13-0500 Heart rate 88 /min Dr. Eliazar Amos Work Phone: [facility] 10-12-2023 14:13-0500 Respiratory rate 16 /min Dr. Eliazar Amos Work Phone: [facility] 10-12-2023 14:13-0500 SaO2% (BldA) [Mass fraction] 97 % Dr. Eliazar Amos Work Phone: [facility] 10-12-2023 14:13-0500 Systolic blood pressure 120 mm[Hg] Dr. Eliazar Amos Work Phone: [facility] 08-09-2023 09:28-0500 Body temperature 98.49 [degF] Paige Cioce LACTATION SPECIALIST.DATA INTEGRATION DEVELOPER Work Phone: [facility] 08-09-2023 09:28-0500 Body weight 129 kg Paige Cioce LACTATION SPECIALIST.DATA INTEGRATION DEVELOPER Work Phone: [facility] 08-09-2023 09:28-0500 Diastolic blood pressure 90 mm[Hg] Paige Cioce LACTATION SPECIALIST.DATA INTEGRATION DEVELOPER Work Phone: [facility] 08-09-2023 09:28-0500 Heart rate 96 /min Paige Cioce LACTATION SPECIALIST.DATA INTEGRATION DEVELOPER Work Phone: [facility] 08-09-2023 09:28-0500 SaO2% (BldA) [Mass fraction] 97 % Paige Cioce LACTATION SPECIALIST.DATA INTEGRATION DEVELOPER Work Phone: [facility] 08-09-2023 09:28-0500 Systolic blood pressure 140 mm[Hg] Paige Cioce LACTATION SPECIALIST.DATA INTEGRATION DEVELOPER Work Phone: [facility] 08-03-2023 14:42-0500 Body height 180.[address] Eliazar Amos Work Phone: [facility] 08-03-2023 14:42-0500 Body mass index (BMI) [Ratio] 39 kg/m2 Dr. Eliazar Amos Work Phone: [facility] 08-03-2023 14:42-0500 Body temperature 98.9 [degF] Dr. Eliazar Amos Work Phone: [facility] 08-03-2023 14:42-0500 Body weight [address] Eliazar Amos Work Phone: [facility] 08-03-2023 14:42-0500 Diastolic blood pressure 82 mm[Hg] Dr. Eliazar Amos Work Phone: [facility] 08-03-2023 14:42-0500 Heart rate 86 /min Dr. Eliazar Amos Work Phone: [facility] 08-03-2023 14:42-0500 Respiratory rate 16 /min Dr. Eliazar Amos Work Phone: [facility] 08-03-2023 14:42-0500 SaO2% (BldA) [Mass fraction] 97 % Dr. Eliazar Amos Work Phone: [facility] 08-03-2023 14:42-0500 Systolic blood pressure 122 mm[Hg] Dr. Eliazar Amos Work Phone: [facility] 06-21-2023 12:11-0400 Body height 180.3 cm Paige Cioce LACTATION SPECIALIST.DATA INTEGRATION DEVELOPER Work Phone: [facility] 06-21-2023 12:11-0400 Body weight 123.83 kg Paige Cioce LACTATION SPECIALIST.DATA INTEGRATION DEVELOPER Work Phone: [facility] 06-21-2023 12:11-0400 Diastolic blood pressure 84 mm[Hg] Paige Cioce LACTATION SPECIALIST.DATA INTEGRATION DEVELOPER Work Phone: [facility] 06-21-2023 12:11-0400 Heart rate 69 /min Paige Cioce LACTATION SPECIALIST.DATA INTEGRATION DEVELOPER Work Phone: [facility] 06-21-2023 12:11-0400 SaO2% (BldA) [Mass fraction] 95 % Paige Cioce LACTATION SPECIALIST.DATA INTEGRATION DEVELOPER Work Phone: [facility] 06-21-2023 12:11-0400 Systolic blood pressure 138 mm[Hg] Paige Cioce LACTATION SPECIALIST.DATA INTEGRATION DEVELOPER Work Phone: [facility] 05-17-2023 09:52-0400 Body height 180.3 cm Paige Cioce LACTATION SPECIALIST.DATA INTEGRATION DEVELOPER Work Phone: [facility] 05-17-2023 09:52-0400 Body temperature 97.59 [degF] Paige Cioce LACTATION SPECIALIST.DATA INTEGRATION DEVELOPER Work Phone: [facility] 05-17-2023 09:52-0400 Body weight 119.93 kg Paige Cioce LACTATION SPECIALIST.DATA INTEGRATION DEVELOPER Work Phone: [facility] 05-17-2023 09:52-0400 Heart rate 68 /min Paige Cioce LACTATION SPECIALIST.DATA INTEGRATION DEVELOPER Work Phone: [facility] 05-17-2023 09:52-0400 SaO2% (BldA) [Mass fraction] 96 % Paige Cioce LACTATION SPECIALIST.DATA INTEGRATION DEVELOPER Work Phone: [facility] 05-11-2023 14:52-0400 Body mass index (BMI) [Ratio] 37.2 kg/m2 Dr. Eliazar Amos Work Phone: [facility] 05-11-2023 14:52-0400 Body temperature 96.2 [degF] Dr. Eliazar Amos Work Phone: [facility] 05-11-2023 14:52-0400 Body weight 121.[address] Eliazar Amos Work Phone: [facility] 05-11-2023 14:52-0400 Diastolic blood pressure 90 mm[Hg] Dr. Eliazar Amos Work Phone: [facility] 05-11-2023 14:52-0400 Heart rate 87 /min Dr. Eliazar Amos Work Phone: [facility] 05-11-2023 14:52-0400 Respiratory rate 16 /min Dr. Eliazar Amos Work Phone: [facility] 05-11-2023 14:52-0400 SaO2% (BldA) [Mass fraction] 97 % Dr. Eliazar Amos Work Phone: [facility] 05-11-2023 14:52-0400 Systolic blood pressure 120 mm[Hg] Dr. Eliazar Amos Work Phone: [facility] 05-03-2023 15:23-0400 Body mass index (BMI) [Ratio] 36.8 kg/m2 Dr. Eliazar Amos Work Phone: [facility] 05-03-2023 15:23-0400 Body temperature 96.8 [degF] Dr. Eliazar Amos Work Phone: [facility] 05-03-2023 15:23-0400 Body weight 119.[address] Eliazar Amos Work Phone: [facility] 05-03-2023 15:23-0400 Diastolic blood pressure 88 mm[Hg] Dr. Eliazar Amos Work Phone: [facility] 05-03-2023 15:23-0400 Heart rate 73 /min Dr. Eliazar Amos Work Phone: [facility] 05-03-2023 15:23-0400 Respiratory rate 18 /min Dr. Eliazar Amos Work Phone: [facility] 05-03-2023 15:23-0400 SaO2% (BldA) [Mass fraction] 98 % Dr. Eliazar Amos Work Phone: [facility] 05-03-2023 15:23-0400 Systolic blood pressure 128 mm[Hg] Dr. Eliaazr Amos Work Phone: [facility] 05-02-2023 11:43-0400 Body mass index (BMI) [Ratio] 36.8 kg/m2 Dr. Eliazar Amos Work Phone: [facility] 05-02-2023 11:43-0400 Body temperature 98.1 [degF] Dr. Eliazar Amos Work Phone: [facility] 05-02-2023 11:43-0400 Body weight 119.[address] Eliazar Amos Work Phone: [facility] 05-02-2023 11:43-0400 Diastolic blood pressure 80 mm[Hg] Dr. Eliazar Amos Work Phone: [facility] 05-02-2023 11:43-0400 Heart rate 81 /min Dr. Eliazar Amos Work Phone: [facility] 05-02-2023 11:43-0400 Respiratory rate 17 /min Dr. Eliazar Amos Work Phone: [facility] 05-02-2023 11:43-0400 SaO2% (BldA) [Mass fraction] 97 % Dr. Eliazar Amos Work Phone: [facility] 05-02-2023 11:43-0400 Systolic blood pressure 100 mm[Hg] Dr. Eliazar Amos Work Phone: [facility] 04-05-2023 14:22-0400 Body height 180.3 cm Paige Cioce LACTATION SPECIALIST.DATA INTEGRATION DEVELOPER Work Phone: [facility] 04-05-2023 14:22-0400 Body weight 122.02 kg Paige Cioce LACTATION SPECIALIST.DATA INTEGRATION DEVELOPER Work Phone: [facility] 04-05-2023 14:22-0400 Diastolic blood pressure 82 mm[Hg] Paige Cioce LACTATION SPECIALIST.DATA INTEGRATION DEVELOPER Work Phone: [facility] 04-05-2023 14:22-0400 Heart rate 68 /min Paige Cioce LACTATION SPECIALIST.DATA INTEGRATION DEVELOPER Work Phone: [facility] 04-05-2023 14:22-0400 Respiratory rate 14 /min Paige Cioce LACTATION SPECIALIST.DATA INTEGRATION DEVELOPER Work Phone: [facility] 04-05-2023 14:22-0400 Systolic blood pressure 112 mm[Hg] Paige Cioce LACTATION SPECIALIST.DATA INTEGRATION DEVELOPER Work Phone: [facility] 12-20-2022 09:06-0400 Body height 180.[address] Eliazar Amos Work Phone: [facility] 12-20-2022 09:06-0400 Body mass index (BMI) [Ratio] 38.6 kg/m2 Dr. Eliazar Amos Work Phone: [facility] 12-20-2022 09:06-0400 Body temperature 97.8 [degF] Dr. Eliazar Amos Work Phone: [facility] 12-20-2022 09:06-0400 Body weight 125.[address] Eliazar Amos Work Phone: [facility] 12-20-2022 09:06-0400 Diastolic blood pressure 86 mm[Hg] Dr. Eliazar Amos Work Phone: [facility] 12-20-2022 09:06-0400 Heart rate 78 /min Dr. Eliazar Amos Work Phone: [facility] 12-20-2022 09:06-0400 Respiratory rate 17 /min Dr. Eliazar Amos Work Phone: [facility] 12-20-2022 09:06-0400 SaO2% (BldA) [Mass fraction] 98 % Dr. Eliazar Amos Work Phone: [facility] 12-20-2022 09:06-0400 Systolic blood pressure 120 mm[Hg] Dr. Eliazar Amos Work Phone: [facility] 12-09-2022 17:06-0400 Diastolic Blood Pressure Non-Invasive 96 1 [place] [place] DO [facility] 12-09-2022 17:06-0400 Heart rate 67 /min [place] DO [facility] 12-09-2022 17:06-0400 Respiratory rate 16 /min [place] DO [facility] 12-09-2022 17:06-0400 Systolic Blood Pressure Non-Invasive 145 1 [place] DO [facility] 12-09-2022 15:35-0400 Body height 180 cm [place] DO [facility] 12-09-2022 15:35-0400 Body temperature 97.52 [degF] [place] DO [facility] 12-09-2022 15:35-0400 Body weight 110 kg [facility] [place] DO [facility] 12-09-2022 15:35-0400 Diastolic Blood Pressure Non-Invasive 93 1 [place] DO [facility] 12-09-2022 15:35-0400 Heart rate 75 /min [place] DO [facility] 12-09-2022 15:35-0400 Respiratory rate 16 /min [place] DO [facility] 12-09-2022 15:35-0400 Systolic Blood Pressure Non-Invasive 134 1 [place] DO [facility] 12-07-2022 14:43-0400 Diastolic Blood Pressure Non-Invasive [address] NAYELY FISHER MD [facility] 12-07-2022 14:43-0400 Heart rate 90 /min DR NAYELY FISHER MD [facility] 12-07-2022 14:43-0400 Reason For Taking VItal Signs DR NAYELY FISHER MD [facility] 12-07-2022 14:43-0400 Respiratory rate 18 /min DR NAYELY FISHER MD [facility] 12-07-2022 14:43-0400 Systolic Blood Pressure Non-Invasive [address] NAYELY FISHER MD [facility] 12-07-2022 12:52-0400 Diastolic Blood Pressure Non-Invasive [address] NAYELY FISHER MD [facility] 12-07-2022 12:52-0400 Heart rate 68 /min DR NAYELY FISHER MD [facility] 12-07-2022 12:52-0400 Respiratory rate 16 /min DR NAYELY FISHER MD [facility] 12-07-2022 12:52-0400 Systolic Blood Pressure Non-Invasive [address] NAYELY FISHER MD [facility] 12-07-2022 12:30-0400 Body temperature 96.98 [degF] DR NAYELY FISHER MD [facility] 12-07-2022 12:30-0400 Diastolic Blood Pressure Non-Invasive [address] NAYELY FISHER MD [facility] 12-07-2022 12:30-0400 Heart rate 100 /min DR NAYELY FISHER MD [facility] 12-07-2022 12:30-0400 Respiratory rate 18 /min DR NAYELY FISHER MD [facility] 12-07-2022 12:30-0400 Systolic Blood Pressure Non-Invasive [address] NAYELY FISHER MD [facility] 08-12-2022 19:45-0500 Respiratory rate 16 /min Dr. Eliazar Amos Work Phone: [facility] Work Phone: 08-12-2022 18:14-0500 Heart rate 103 /min Dr. Eliazar Amos Work Phone: [facility] Work Phone: 08-12-2022 18:14-0500 SaO2% (BldA) [Mass fraction] 99 % Dr. Eliazar Amos Work Phone: [facility] Work Phone: 08-12-2022 15:59-0500 Body height 180.[address] Eliazar Amos Work Phone: [facility] Work Phone: 08-12-2022 15:59-0500 Body mass index (BMI) [Ratio] 38.5 kg/m2 Dr. Eliazar Amos Work Phone: [facility] Work Phone: 08-12-2022 15:59-0500 Body temperature 98.3 [degF] Dr. Eliazar Amos Work Phone: [facility] Work Phone: 08-12-2022 15:59-0500 Body weight 125.[address] Eliazar Amos Work Phone: [facility] Work Phone: 08-12-2022 15:59-0500 Diastolic blood pressure 88 mm[Hg] Dr. Eliazar Amos Work Phone: [facility] Work Phone: 08-12-2022 15:59-0500 Systolic blood pressure 153 mm[Hg] Dr. Eliazar Amos Work Phone: [facility] Work Phone: 07-10-2022 13:47-0500 Body temperature 98.6 [degF] DEAN LYON MD [facility] 07-10-2022 13:47-0500 Diastolic blood pressure 80 mm[Hg] DEAN LYON MD [facility] 07-10-2022 13:47-0500 Heart rate 85 /min DEAN LYON MD [facility] 07-10-2022 13:47-0500 Respiratory rate 18 /min DEAN LYON MD [facility] 07-10-2022 13:47-0500 Systolic blood pressure 123 mm[Hg] DEAN LYON MD [facility] 06-25-2022 13:53-0400 Heart rate 89 /min Dr. Eliazar Aoms Work Phone: [facility] Work Phone: 06-25-2022 13:53-0400 Respiratory rate 16 /min Dr. Eliazar Amos Work Phone: [facility] Work Phone: 06-25-2022 13:09-0400 Body height 180.[address] Eliazar Amos Work Phone: [facility] Work Phone: 06-25-2022 13:09-0400 Body mass index (BMI) [Ratio] 37.5 kg/m2 Dr. Eliazar Amos Work Phone: [facility] Work Phone: 06-25-2022 13:09-0400 Body temperature 97.5 [degF] Dr. Eliazar Amos Work Phone: [facility] Work Phone: 06-25-2022 13:09-0400 Body weight 122.[address] Eliazar Amos Work Phone: [facility] Work Phone: 06-25-2022 13:09-0400 Diastolic blood pressure 137 mm[Hg] Dr. Eliazar Amos Work Phone: [facility] Work Phone: 06-25-2022 13:09-0400 SaO2% (BldA) [Mass fraction] 98 % Dr. Eliazar Amos Work Phone: [facility] Work Phone: 06-25-2022 13:09-0400 Systolic blood pressure 163 mm[Hg] Dr. Eliazar Amos Work Phone: [facility] Work Phone: 06-07-2022 14:33-0400 Body height 180.[address] Eliazar Amos Work Phone: [facility] Work Phone: 06-07-2022 14:33-0400 Body mass index (BMI) [Ratio] 40 kg/m2 Dr. Eliazar Amos Work Phone: [facility] Work Phone: 06-07-2022 14:33-0400 Body temperature 97.1 [degF] Dr. Eliazar Amos Work Phone: [facility] Work Phone: 06-07-2022 14:33-0400 Body weight 130.[address] Eliazar Amos Work Phone: [facility] Work Phone: 06-07-2022 14:33-0400 Diastolic blood pressure 92 mm[Hg] Dr. Eliazar Amos Work Phone: [facility] Work Phone: 06-07-2022 14:33-0400 Heart rate 69 /min Dr. Eliazar Amos Work Phone: [facility] Work Phone: 06-07-2022 14:33-0400 Respiratory rate 14 /min Dr. Eliazar Amos Work Phone: [facility] Work Phone: 06-07-2022 14:33-0400 SaO2% (BldA) [Mass fraction] 97 % Dr. Eliazar Amos Work Phone: [facility] Work Phone: 06-07-2022 14:33-0400 Systolic blood pressure 142 mm[Hg] Dr. Eliazar Amos Work Phone: [facility] Work Phone: 04-04-2022 22:16-0400 Body height 180.[address] PATRIA PARRA DO [facility] 04-04-2022 22:16-0400 Body temperature 98.06 [degF] DR PATRIA PARRA DO [facility] 04-04-2022 22:16-0400 Body weight 118.[address] PATRIA PARRA DO [facility] 04-04-2022 22:16-0400 Diastolic blood pressure 90 mm[Hg] DR PATRIA PARRA DO [facility] 04-04-2022 22:16-0400 Heart rate 75 /min DR PATRIA PARRA DO [facility] 04-04-2022 22:16-0400 Respiratory rate 18 /min DR PATRIA PARRA DO [facility] 04-04-2022 22:16-0400 Systolic blood pressure 135 mm[Hg] DR PATRIA PARRA DO [facility] 02-16-2022 14:15-0400 Body height 177 cm MARIYA LEALДМИТРИЙ DO [facility] 02-16-2022 14:15-0400 Body temperature 98.42 [degF] MARIYARADHA LEALKA DO [facility] 02-16-2022 14:15-0400 Body weight 122 kg MARIYA CALI DO [facility] 02-16-2022 14:15-0400 Diastolic blood pressure 89 mm[Hg] MARIYA LEALKA DO [facility] 02-16-2022 14:15-0400 Heart rate 110 /min MARIYA LEALKA DO [facility] 02-16-2022 14:15-0400 Respiratory rate 18 /min MARIYA JENAESKA DO [facility] 02-16-2022 14:15-0400 Systolic blood pressure 135 mm[Hg] MARIYA KARELY DO [facility] 12-26-2021 16:10-0400 Body temperature 97.7 [degF] DR PATRIA PARRA DO [facility] 12-26-2021 16:10-0400 Diastolic blood pressure 84 mm[Hg] DR PATRIA PARRA DO [facility] 12-26-2021 16:10-0400 Heart rate 94 /min DR PATRIA PARRA DO [facility] 12-26-2021 16:10-0400 Respiratory rate 18 /min DR PATRIA PARRA DO [facility] 12-26-2021 16:10-0400 Systolic blood pressure 122 mm[Hg] DR PATRIA PARRA DO [facility] 12-08-2021 17:13-0400 Body height 180.[address] Maren Sultana Work Phone: [facility] Work Phone: 12-08-2021 17:13-0400 Body mass index (BMI) [Ratio] 40 kg/m2 Dr. Maren Sultana Work Phone: [facility] Work Phone: 12-08-2021 17:13-0400 Body temperature 96.7 [degF] Dr. Maren Sultana Work Phone: [facility] Work Phone: 12-08-2021 17:13-0400 Body weight 130.[address] Maren Sultana Work Phone: [facility] Work Phone: 12-08-2021 17:13-0400 Diastolic blood pressure 122 mm[Hg] Dr. Maren Sultana Work Phone: [facility] Work Phone: 12-08-2021 17:13-0400 Heart rate 76 /min Dr. Maren Sultana Work Phone: [facility] Work Phone: 12-08-2021 17:13-0400 Respiratory rate 15 /min Dr. Maren Sultana Work Phone: [facility] Work Phone: 12-08-2021 17:13-0400 SaO2% (BldA) [Mass fraction] 98 % Dr. Maren Sultana Work Phone: [facility] Work Phone: 12-08-2021 17:13-0400 Systolic blood pressure 144 mm[Hg] Dr. Maren Sultana Work Phone: [facility] Work Phone: 11-17-2021 14:46-0400 Body mass index (BMI) [Ratio] 39.4 kg/m2 Dr. Maren Sultana Work Phone: [facility] Work Phone: 11-17-2021 14:46-0400 Body temperature 98.3 [degF] Dr. Maren Sultana Work Phone: [facility] Work Phone: 11-17-2021 14:46-0400 Body weight 128.[address] Maren Sultana Work Phone: [facility] Work Phone: 11-17-2021 14:46-0400 Diastolic blood pressure 82 mm[Hg] Dr. Maren Sultana Work Phone: [facility] Work Phone: 11-17-2021 14:46-0400 Heart rate 90 /min Dr. Maren Sultana Work Phone: [facility] Work Phone: 11-17-2021 14:46-0400 Respiratory rate 14 /min Dr. Maren Sultana Work Phone: [facility] Work Phone: 11-17-2021 14:46-0400 SaO2% (BldA) [Mass fraction] 98 % Dr. Maren Sultana Work Phone: [facility] Work Phone: 11-17-2021 14:46-0400 Systolic blood pressure 126 mm[Hg] Dr. Maren Sultana Work Phone: [facility] Work Phone: 10-28-2021 13:27-0500 Body mass index (BMI) [Ratio] 40 kg/m2 Dr. Maren Sultana Work Phone: [facility] Work Phone: 10-28-2021 13:27-0500 Body temperature 97.7 [degF] Dr. Maren Sultana Work Phone: [facility] Work Phone: 10-28-2021 13:27-0500 Body weight 130.[address] Maren Sultana Work Phone: [facility] Work Phone: 10-28-2021 13:27-0500 Heart rate 67 /min Dr. Maren Sultana Work Phone: [facility] Work Phone: 10-28-2021 13:27-0500 Respiratory rate 16 /min Dr. Maren Sultana Work Phone: [facility] Work Phone: 10-28-2021 13:27-0500 SaO2% (BldA) [Mass fraction] 97 % Dr. Maren Sultana Work Phone: [facility] Work Phone: 09-02-2021 12:19-0500 Body mass index (BMI) [Ratio] 38.9 kg/m2 Dr. Maren Sultana Work Phone: [facility] Work Phone: 09-02-2021 12:19-0500 Body temperature 95.9 [degF] Dr. Maren Sultana Work Phone: [facility] Work Phone: 09-02-2021 12:19-0500 Body weight 126.[address] Maren Sulatna Work Phone: [facility] Work Phone: 09-02-2021 12:19-0500 Diastolic blood pressure 86 mm[Hg] Dr. Maren Sultana Work Phone: [facility] Work Phone: 09-02-2021 12:19-0500 Heart rate 90 /min Dr. Maren Sultana Work Phone: [facility] Work Phone: 09-02-2021 12:19-0500 Respiratory rate 16 /min Dr. Maren Sultana Work Phone: [facility] Work Phone: 09-02-2021 12:19-0500 SaO2% (BldA) [Mass fraction] 97 % Dr. Maren Sultana Work Phone: [facility] Work Phone: 09-02-2021 12:19-0500 Systolic blood pressure 124 mm[Hg] Dr. Maren Sultana Work Phone: [facility] Work Phone: Encounters Encounter Date Encounter Type Care Provider Facility Start: 05-16-2025 End: 05-16-2025 Emergency department patient visit Dr. Eliazar Amos MD Work Phone: -Emergency Department Work Phone: Start: 05-07-2025 End: 05-07-2025 Nursing evaluation of patient and report Dulce Smith RN Work Phone: Endocrinology Comment on above: Diabetes mellitus tr eated with injections of non-insulin medication (HCC) Start: 05-07-2025 End: 05-07-2025 Patient encounter procedure Paige Muller APRN.DATA INTEGRATION DEVELOPER Work Phone: Endocrinology Comment on above: Diabetes mellitus tr eated with injections of non-insulin medication (HCC) (Primary Dx); Obesity, Class III, BMI 40-49.9 (morbid obesity) (HCC); Poorly controlled type 2 diabetes mellitus (HCC) Start: 05-07-2025 End: 05-07-2025 ambulatory ELIAZAR AMOS Facility:[facility] Start: 05-02-2025 End: 05-02-[address] Eliazar Amos MD -[place] [facility] Work Phone: Start: 05-02-2025 End: 05-02-[address] Eliazar Amos MD Work Phone: -[place] [facility] Start: 04-08-2025 End: 04-08-2025 Emergency department patient visit Dr. Eliazar Amos MD Work Phone: -Emergency Department Work Phone: Start: 03-20-2025 End: 03-20-[address] Eliazar Amos MD -[place] [facility] Work Phone: Start: 03-20-2025 End: 03-20-[address] Eliazar Amos MD Work Phone: -[place] [facility] Start: 03-18-2025 End: 03-18-2025 Emergency department patient visit Dr. Eliazar Amos MD Work Phone: -Emergency Department Work Phone: Start: 02-17-2025 ambulatory Eliazar Alvaradoi ty:[facility] Start: 01-20-2025 End: 01-20-2025 Telephone encounter Paige Muller LACTATION SPECIALIST.DATA INTEGRATION DEVELOPER Work Phone: [facility] [place] Comment on above: Insurance Authorizat ion (OZEMPIC) 1 mg/dose (4 mg/3 mL)) Start: 01-17-2025 End: 01-17-2025 Emergency department patient visit Dr. Eliazar Amos MD Work Phone: -Emergency Department Work Phone: Start: 01-16-2025 End: 01-20-2025 Telephone encounter Paige Muller LACTATION SPECIALIST.DATA INTEGRATION DEVELOPER Work Phone: [facility] [place] Comment on above: Medication Preauthor ization Start: 01-02-2025 End: 01-14-2025 Telephone encounter Paige Muller APRN.DATA INTEGRATION DEVELOPER Work Phone: [facility] [place] Comment on above: Insurance Authorizat ion ( (MOUNJARO) 5 mg/0.5 mL); Medication Problem Start: 01-01-2025 End: 01-01-2025 Patient encounter procedure Paige Muller LACTATION SPECIALIST.DATA INTEGRATION DEVELOPER Work Phone: Endocrinology Comment on above: Diabetes mellitus tr eated with injections of non-insulin medication (HCC) (Primary Dx) Start: 01-01-2025 End: 01-01-2025 ambulatory ELIAZAR AMOS Facility:[facility] Start: 11-15-2024 End: 11-15-[address] Eliazar Amos MD Work Phone: [facility] Work Phone: Start: 11-15-2024 End: 11-15-[address] Eliazar Amos MD -Laboratory, Specimen Work Phone: Start: 11-15-2024 End: 11-15-[address] Eliazar Amos MD -[place] [facility] Work Phone: Start: 11-15-2024 End: 11-15-2024 ambulatory [facility] Facility:[facility] Start: 11-15-2024 End: 11-15-2024 ambulatory [facility] Facility:[facility] Start: 11-07-2024 End: 11-07-2024 Telephone encounter Paige Muller LACTATION SPECIALIST.DATA INTEGRATION DEVELOPER Work Phone: Endocrinology Comment on above: Appointment Office V erification Start: 11-06-2024 End: 11-06-[address] Delores Begum MD -[place] [facility] Work Phone: Start: 11-06-2024 End: 11-06-2024 ambulatory Delores Begum Facility:[facility] Start: 10-30-2024 End: 10-30-2024 ambulatory Paige Muller LACTATION SPECIALIST.DATA INTEGRATION DEVELOPER Work Phone: Endocrinology Comment on above: Moopal Denial Start: 10-30-2024 End: 10-30-2024 E-mail encounter from caregiver Paige Muller LACTATION SPECIALIST.DATA INTEGRATION DEVELOPER Work Phone: Endocrinology Start: 10-28-2024 End: 10-29-2024 Telephone encounter Paige Muller LACTATION SPECIALIST.DATA INTEGRATION DEVELOPER Work Phone: Endocrinology Comment on above: Patient Question (Re quest medication change) Start: 10-14-2024 End: 10-15-2024 Emergency department patient visit Dr. Shlomo Santizo DO -Emergency Department Work Phone: Start: 10-10-2024 End: 10-10-2024 Refill Paige Muller LACTATION SPECIALIST.DATA INTEGRATION DEVELOPER Work Phone: Endocrinology Comment on above: Refill Request Start: 09-24-2024 End: 09-24-2024 Telephone encounter Paige Mulelr LACTATION SPECIALIST.DATA INTEGRATION DEVELOPER Work Phone: Endocrinology Comment on above: Prior Authorization freestyle test strips Start: 09-23-2024 End: 09-23-2024 Refill Paige Muller APRN.DATA INTEGRATION DEVELOPER Work Phone: Endocrinology Comment on above: Refill Request Start: 09-07-2024 End: 09-07-2024 Emergency department patient visit Mona Collazo DO Work Phone: [facility] Comment on above: URI with cough and c ongestion (Primary Dx); Left otitis media, unspecified otitis media type; Pharyngitis, unspecified etiology Start: 07-25-2024 End: 07-25-2024 ambulatory KATIE BRIZUELA Facility:[facility] Start: 07-25-2024 End: 07-25-2024 Office outpatient visit 15 minutes Katie Brizuela MD Work Phone: [facility] Comment on above: Acute upper respirat ory infection (Primary Dx) Start: 07-19-2024 End: 07-19-20[facility] Start: 06-26-2024 End: 06-27-2024 Telephone encounter Paige Muller APRN.DATA INTEGRATION DEVELOPER Work Phone: Endocrinology Comment on above: Refill Request (trul icity) Start: 05-31-2024 End: 05-31-2024 ambulatory Paige Muller APRN.DATA INTEGRATION DEVELOPER Work Phone: Endocrinology Comment on above: Trulicity Start: 05-31-2024 End: 05-31-2024 E-mail encounter from caregiver Paige Muller APRN.DATA INTEGRATION DEVELOPER Work Phone: Endocrinology Start: 05-27-2024 End: 05-27-2024 Orders Only Paige Muller LACTATION SPECIALIST.DATA INTEGRATION DEVELOPER Work Phone: Endocrinology Comment on above: Diabetes mellitus tr eated with injections of non-insulin medication (HCC) (Primary Dx) Start: 05-24-2024 End: 05-25-2024 Telephone encounter Paige Muller APRN.DATA INTEGRATION DEVELOPER Work Phone: Endocrinology Comment on above: Medication Problem Start: 05-02-2024 End: 05-02-2024 Emergency department patient visit SPRING BRANCH DO [facility] Start: 02-20-2024 Refill Paige C Cioce LACTATION SPECIALIST.DATA INTEGRATION DEVELOPER Work Phone: Endocrinology Comment on above: Refill Request Start: 02-13-2024 Telephone encounter Paige C C ioce LACTATION SPECIALIST.DATA INTEGRATION DEVELOPER Work Phone: Endocrinology Comment on above: Medication Problem; Results; Prior Auth Appeal (Unruly) Start: 01-25-2024 Telephone encounter Paige C C ioce LACTATION SPECIALIST.DATA INTEGRATION DEVELOPER Work Phone: Endocrinology Comment on above: Prior Authorization Unruly (Please resend PA in 3 days, to [facility] through [employer]. Not available yet//[place]) Start: 01-24-2024 End: 01-24-2024 Patient encounter procedure Paige C Cioce LACTATION SPECIALIST.DATA INTEGRATION DEVELOPER Work Phone: Endocrinology Comment on above: Poorly controlled ty pe 2 diabetes mellitus (HCC) (Primary Dx) Start: 01-16-2024 Refill Paige C Cioce LACTATION SPECIALIST.DATA INTEGRATION DEVELOPER Work Phone: Endocrinology Comment on above: Refill Request Start: 11-22-2023 Non-patient / Non-visit Dr. Edwin Amos Work Phone: [facility] Start: 11-22-2023 End: 11-22-2023 Admission to same day surgery center Dr. Eliazar Amos Work Phone: [facility] Start: 11-22-2023 End: 11-22-[address] Eliazar Amos Work Phone: [facility] Work Phone: Start: 10-25-2023 End: 10-25-2023 Emergency department patient visit ELIAZAR AMOS MD Facility:B Start: 10-24-2023 End: 10-24-2023 Emergency department patient visit DR MAREN WAN MD [facility] Start: 10-12-2023 End: 10-12-[address] Eliazar Amos Work Phone: [facility] Work Phone: Start: 10-12-2023 End: 10-12-[address] Eliazar Amos Work Phone: [facility] Work Phone: Start: 10-10-2023 End: 10-10-[address] Eliazar Amos Work Phone: [facility] Work Phone: Start: 09-27-2023 Non-patient / Non-visit Dr. Edwin Amos Work Phone: [facility] Start: 09-27-2023 End: 09-27-[address] Eliazar Amos Work Phone: [facility] Work Phone: Start: 09-27-2023 End: 09-27-[address] Eliazar Amos Work Phone: [facility]-Pulmonary Services/Neurology Work Phone: Start: 08-21-2023 End: 08-21-[address] Eliazar Amos Work Phone: [facility] Work Phone: Start: 08-09-2023 End: 08-09-2023 Patient encounter procedure Paige Muller APRN.DATA INTEGRATION DEVELOPER Work Phone: Endocrinology Comment on above: Poorly controlled ty pe 2 diabetes mellitus (HCC) (Primary Dx) Start: 08-03-2023 End: 08-03-[address] Eliazar Amos Work Phone: [facility] Work Phone: Start: 08-03-2023 End: 08-03-[address] Eliazar Amos Work Phone: [facility] Work Phone: Start: 06-21-2023 End: 06-21-2023 Patient encounter procedure Paige Muller LACTATION SPECIALIST.DATA INTEGRATION DEVELOPER Work Phone: Endocrinology Comment on above: Poorly controlled ty pe 2 diabetes mellitus (HCC) (Primary Dx) Start: 05-30-2023 End: 05-30-[address] Eliazar Amos Work Phone: [facility] Work Phone: Start: 05-28-2023 ambulatory Paige Hectoroccyn LACTATION SPECIALIST.DATA INTEGRATION DEVELOPER Work Phone: Endocrinology Comment on above: Thyroid Start: 05-19-2023 End: 05-19-2023 Subsequent hospital visit by physician [facility] Work Phone: Radiology Comment on above: Type II diabetes debbie litus with manifestations (HCC) [E11.8] Start: 05-17-2023 End: 05-17-2023 Patient encounter procedure Paige Hectoroce LACTATION SPECIALIST.DATA INTEGRATION DEVELOPER Work Phone: Endocrinology Comment on above: Type II diabetes debbie litus with manifestations (HCC) (Primary Dx) Start: 05-11-[address] Cyn Amos Work Phone: [facility] Start: 05-11-2023 End: 05-11-2023 Emergency department patient visit Dr. Eliazar Amos Work Phone: [facility] Start: 05-11-2023 End: 05-11-[address] Eliazar Amos Work Phone: [facility] Work Phone: Start: 05-09-2023 End: 05-09-[address] Eliazar Amos Work Phone: [facility] Work Phone: Start: 05-03-2023 End: 05-03-[address] Eliazar Amos Work Phone: [facility] Work Phone: Start: 05-03-2023 End: 05-03-[address] Eliazar Amos Work Phone: [facility] Work Phone: Start: 05-02-2023 End: 05-02-[address] Eliazar Amos Work Phone: [facility] Neurology Work Phone: Start: 04-09-2023 Telephone encounter Paige C C ioce LACTATION SPECIALIST.DATA INTEGRATION DEVELOPER Work Phone: Endocrinology Comment on above: Results Start: 04-06-2023 Refill Paige C Cioce LACTATION SPECIALIST.DATA INTEGRATION DEVELOPER Work Phone: Endocrinology Comment on above: Med Change Request Start: 04-05-2023 End: 04-05-2023 Patient encounter procedure Paige C Cioce LACTATION SPECIALIST.DATA INTEGRATION DEVELOPER Work Phone: Endocrinology Comment on above: Type II diabetes debbie litus with manifestations (HCC) (Primary Dx); Goiter Start: 04-05-2023 Telephone encounter Paige C C ioce LACTATION SPECIALIST.DATA INTEGRATION DEVELOPER Work Phone: Endocrinology Comment on above: Patient Question Start: 03-17-2023 End: 03-18-2023 ambulatory ELIAZAR AMOS MD Facility:[facility] Start: 03-16-2023 End: 03-16-[address] Eliazar Amos Work Phone: [facility] Work Phone: Start: 03-16-2023 End: 03-16-[address] Eliazar Amos Work Phone: [facility] Work Phone: Start: 03-13-2023 End: 03-18-2023 ambulatory MARINE BACON MD Facility:B Start: 03-13-2023 End: 03-17-2023 Outreach Lab MARINE BACON MD [facility] Start: 12-23-2022 End: 12-23-[address] Eliazar Amos Work Phone: [facility]-Pulmonary Services/Neurology Work Phone: Start: 12-20-2022 End: 12-20-[address] Eliazar Amos Work Phone: [facility] Work Phone: Start: 12-19-2022 End: 12-19-[address] Eliazar Amos Work Phone: [facility] Work Phone: Start: 12-09-2022 End: 12-09-2022 Emergency department patient visit [facility] Facility:[facility] Start: 12-09-2022 End: 12-09-2022 Emergency department patient visit [facility] Start: 12-07-2022 End: 12-07-2022 Emergency department patient visit DR NAYELY FISHER MD Facility:B Start: 12-07-2022 End: 12-07-2022 Emergency department patient visit DR NAYELY FISHER MD [facility] Start: 08-12-2022 End: 08-12-2022 Emergency department patient visit Dr. Eliazar Amos Work Phone: [facility]-Emergency Department Start: 07-10-2022 End: 07-10-2022 Emergency department patient visit DEAN LYON MD [facility] Start: 06-25-2022 End: 06-25-2022 Emergency department patient visit Dr. Eliazar Amos Work Phone: [facility]-Emergency Department Start: 06-15-2022 End: 06-15-[address] Eliazar Amos Work Phone: [facility] [facility] Work Phone: Start: 06-15-2022 End: 06-15-[address] Eliazar Amos Work Phone: [facility] Start: 06-07-2022 End: 06-07-[address] Eliazar Amos Work Phone: [facility] Start: 04-04-2022 End: 04-04-2022 Emergency department patient visit DR PATRIA PARRA DO [facility] Start: 02-16-2022 End: 02-16-2022 Emergency department patient visit MARIYA CALI DO [facility] Start: 12-26-2021 End: 12-26-2021 Emergency department patient visit DR PATRIA PARRA DO [facility] Start: 12-08-2021 End: 12-08-2021 Emergency department patient visit Dr. Maren Sultana Work Phone: [facility]-Emergency Department Start: 11-17-2021 End: 11-17-[address] Maren Sultana Work Phone: [facility]-Laboratory, Specimen Start: 10-28-2021 End: 10-28-[address] Maren Sultana Work Phone: [facility] Start: 09-02-2021 End: 09-02-[address] Maren Sultana Work Phone: [facility] Procedures Date Procedure Procedure Detail Performing Clinician Start: 05-16-[address] Eliazar Amos MD Work Phone: Start: 05-16-2025 Urnls dip stick/tabl et reagent auto microscopy Dr. Eliazar Amos MD Work Phone: Start: 05-16-[address] Eliazar Amos MD Work Phone: Start: 05-07-2025 Hemoglobin A1c/Hemoglobin.total in Blood Paige C Cioce LACTATION SPECIALIST.DATA INTEGRATION DEVELOPER Work Phone: Start: 01-17-2025 X-ray of chest, PA a [...] Start: 06-21-2023 Hemoglobin A1c/Hemoglobin.total in Blood Paige Hectoroce LACTATION SPECIALIST.DATA INTEGRATION DEVELOPER Work Phone: Start: 05-19-2023 Us soft tissue head & neck real time imge docm Paigemadeleine Hectoroce LACTATION SPECIALIST.DATA INTEGRATION DEVELOPER Work Phone: Start: 03-16-2023 MRI of brain [...] SPECIMEN Performed By: #### T SCR #### [facility] CLIA [id number] [address] [place] [address] PATRIA PARRA DO Comment on [...] Treatment Date Care Activity Detail Author Start: 2073 RSV Immunization for Adults (1 - 1-dose 75+ series) RSV Immunization for Adults (1 - 1-dose 75+ series) [facility] Start: 2048 Zoster Vaccines (1 of 2) Zoster Vaccines (1 of 2) [facility] Start: 12-09-2031 Tetanus vaccination [facility] Start: 12-09-2031 Urine microalbumin profile DTaP,Tdap,Td Vaccine (9 - Td or Tdap) [facility] Start: 02-21-2031 DTaP/Tdap/Td Vaccines (8 - Td or Tdap) DTaP/Tdap/Td Vaccines (8 - Td or Tdap) [facility] Start: 02-21-2031 Urine microalbumin profile [facility] Start: 01-01-2026 Hepatitis B screening Urine Albumin:Creatinine Ratio [facility] Start: 01-01-2026 Hepatitis B surface antibody level LDL Cholesterol [facility] Start: 08-06-2025 Hemoglobin A1c measurement HbA1C [facility] Start: 07-03-2025 Hemoglobin A1c measurement HbA1C [facility] Start: 05-16-2025 [facility] Start: 05-07-2025 End: 08-06-2025 Comprehensive metabolic 2000 panel - Serum or Plasma COMPREHENSIVE METABOLIC PANEL Lab Routine Diabetes mellitus treated with injections of non-insulin medication (HCC) Expected: 05/07/2025, Expires: 08/06/2025 [facility] Work Phone: Comment on above: Expected: 05/07/2025, Expires: Start: 05-07-2025 End: 08-06-2025 Hemoglobin A1c in Blood HEMOGLOBIN A1C Lab Routine Diabetes mellitus treated with injections of non-insulin medication (HCC) Expected: 05/07/2025, Expires: 08/06/2025 [facility] Comment on above: Expected: 05/07/2025, Expires: Start: 05-07-2025 End: 08-06-2025 LIPID PANEL, NONFASTING LIPID PANEL, NONFASTING Lab Routine Diabetes mellitus treated with injections of non-insulin medication (HCC) Expected: 05/07/2025, Expires: 08/06/2025 [facility] Comment on above: Expected: 05/07/2025, Expires: Start: 05-07-2025 End: 08-06-2025 Microalbumin/Creatinine [Mass Ratio] in Urine ALBUMIN/CREATININE RATIO, URINE Lab Routine Diabetes mellitus treated with injections of non-insulin medication (HCC) Expected: 05/07/2025, Expires: 08/06/2025 [facility] Comment on above: Expected: 05/07/2025, Expires: Start: 05-05-2025 Influenza vaccination [facility] Start: 04-08-2025 [facility] Start: 04-02-2025 End: 04-02-2025 Patient encounter procedure 04/02/2025 2:45 PM EDT Office Visit Endocrinology [address] [place] [address] Paige Muller APRN.DATA INTEGRATION DEVELOPER [address] [place] [address] 3 month follow up Endocrinology Comment on above: 3 month follow up Start: 03-18-2025 [facility] Start: 02-05-2025 End: 02-05-2025 Patient encounter procedure 02/05/2025 12:15 PM EDT Office Visit Endocrinology [address] [place] [address] Paige Muller LACTATION SPECIALIST.DATA INTEGRATION DEVELOPER [address] [place] [address] diabetes Endocrinology Comment on above: diabetes Start: 02-03-2025 End: 02-03-2025 ambulatory 02/03/2025 11:00 AM EDT Education Endocrinology [address] [place] [address] Cristina Delgado, POLINA [address] [address] Diabetes mellitus treated with injections of non-insulin medication (HCC) [E11.9, Z79.85] Endocrinology Comment on above: Diabetes mellitus treated with injection s of non-insulin medication (HCC) [E11.9, Z79.85] Start: 02-01-2025 Hepatitis B screening Urine Albumin:Creatinine Ratio [facility] Start: 02-01-2025 Hepatitis B surface antibody level LDL Cholesterol [facility] Start: 01-17-2025 End: 01-17-2025 [facility] Start: 01-01-2025 End: 04-02-2025 25-hydroxyvitamin D3 [Mass/volume] in Serum or Plasma [facility] Comment on above: Expected: 01/01/2025, Expires: Start: 01-01-2025 End: 04-02-2025 Hemoglobin A1c in Blood [facility] Comment on above: Expected: 01/01/2025, Expires: Start: 01-01-2025 End: 04-02-2025 LIPID PANEL, NONFASTING [facility] Work Phone: Comment on above: Expected: 01/01/2025, Expires: Start: 01-01-2025 End: 04-02-2025 Microalbumin/Creatinine [Mass Ratio] in Urine [facility] Comment on above: Expected: 01/01/2025, Expires: Start: 01-01-2025 End: 04-02-2025 Thyrotropin [Units/volume] in Serum or Plasma [facility] Comment on above: Expected: 01/01/2025, Expires: Start: 01-01-2025 End: 04-02-2025 Thyroxine (T4) free [Mass/volume] in Serum or Plasma [facility] Comment on above: Expected: 01/01/2025, Expires: Start: 11-07-2024 End: 11-07-2024 Patient encounter procedure 11/07/2024 1:15 PM EST Office Visit Endocrinology [address] [place] [address] Paige Muller, LACTATION SPECIALIST.DATA INTEGRATION DEVELOPER [address] [place] [address] Follow Up Endocrinology Comment on above: Follow Up Start: 10-15-2024 [facility] Start: 10-14-2024 [facility] Start: 08-03-2024 Hemoglobin A1c measurement HbA1C [facility] Start: 05-05-2024 COVID-19 VACCINE ( season) COVID-19 VACCINE ( season) [facility] Start: 05-05-2024 Covid-19 Vaccine ( season) Covid-19 Vaccine () [facility] Start: 05-05-2024 Influenza vaccination [facility] Start: 04-05-2024 Hepatitis B screening Urine Albumin:Creatinine Ratio [facility] Start: 04-05-2024 Hepatitis B surface antibody level LDL Cholesterol [facility] Start: 12-04-2023 End: 03-04-2024 ALBUMIN/CREAT RATIO RND UR [facility] Work Phone: Comment on above: Expected: 12/04/2023, Expires: Expected: 12/04/2023 , Expires: 03/04/2024 Start: 12-04-2023 End: 03-04-2024 Comprehensive metabolic 2000 panel - Serum or Plasma [facility] Work Phone: Comment on above: Expected: 12/04/2023, Expires: 4 Expected: 12/04/2023 , Expires: 03/04/2024 Start: 12-04-2023 End: 03-04-2024 Hemoglobin A1c in Blood [facility] Work Phone: Comment on above: Expected: 12/04/2023, Expires: 4 Expected: 12/04/2023 , Expires: 03/04/2024 Start: 12-04-2023 End: 03-04-2024 LIPID PANEL, NONFASTING [facility] Work Phone: Comment on above: Expected: 12/04/2023, Expires: 4 Expected: 12/04/2023 , Expires: 03/04/2024 Start: 11-22-2023 Patient discharge [facility] Start: 11-22-2023 Application of ice collar, cap or bag [facility] Start: 11-22-2023 Assessment of risk of venous thromboembolism [facility] Start: 11-22-2023 Catheterization of vein [facility] Start: 11-22-2023 Deep breathing and coughing exercises [facility] Start: 11-22-2023 Following clinical pathway protocol [facility] Start: 11-22-2023 Gait training procedure [facility] Start: 11-22-2023 Incentive spirometry [facility] Start: 11-22-2023 Introduction of urinary catheter [facility] Start: 11-22-2023 Patient education [facility] Start: 11-22-2023 Taking patient vital signs [facility] Start: 11-22-2023 Vital signs measurements [facility] Start: 11-22-2023 [facility] Start: 11-22-2023 Electrocardiographic procedure [facility] Start: 11-22-2023 Medication education [facility] Start: 11-03-2023 End: 01-03-2024 ALBUMIN/CREAT RATIO RND UR ALBUMIN/CREAT RATIO RND UR Lab Routine Type II diabetes mellitus with manifestations (HCC) Expected: 11/03/2023, Expires: 01/03/2024 [facility] Work Phone: Comment on above: Expected: 11/03/2023, Expires: Start: 11-03-2023 End: 01-03-2024 Comprehensive metabolic 2000 panel - Serum or Plasma COMP METABOLIC PANEL Lab Routine Type II diabetes mellitus with manifestations (HCC) Expected: 11/03/2023, Expires: 01/03/2024 [facility] Work Phone: Comment on above: Expected: 11/03/2023, Expires: 4 Start: 11-03-2023 End: 01-03-2024 Hemoglobin A1c in Blood HGB A1C Lab Routine Type II diabetes mellitus with manifestations (HCC) Expected: 11/03/2023, Expires: 01/03/2024 [facility] Work Phone: Comment on above: Expected: 11/03/2023, Expires: 4 Start: 11-03-2023 End: 01-03-2024 LIPID PANEL, NONFASTING LIPID PANEL, NONFASTING Lab Routine Type II diabetes mellitus with manifestations (HCC) Expected: 11/03/2023, Expires: 01/03/2024 [facility] Work Phone: Comment on above: Expected: 11/03/2023, Expires: 4 Start: 09-21-2023 [facility] Start: 09-21-2023 Hemoglobin A1c/Hemoglobin.total in Blood HbA1C [facility] Start: 09-04-2023 Behavioral Health Screening Behavioral Health Screening [facility] Start: 07-06-2023 Hemoglobin A1c/Hemoglobin.total in Blood HbA1C [facility] Start: 06-21-2023 End: 09-20-2023 Hemoglobin A1c in Blood HGB A1C Lab Routine Poorly controlled type 2 diabetes mellitus (HCC) Expected: 06/21/2023, Expires: 09/20/2023 [facility] Work Phone: Comment on above: Expected: 06/21/2023, Expires: 4 Start: 05-05-2023 Covid-19 Vaccine (2022- season) Covid-19 Vaccine () [facility] Start: 05-05-2023 Influenza vaccination [facility] Start: 04-05-2023 End: 06-05-2023 Glutamate decarboxylase 65 Ab [Units/volume] in Serum [facility] Work Phone: Comment on above: Expected: 04/05/2023, Expires: 3 Start: 04-05-2023 End: 06-05-2023 Pancreatic islet cell Ab [Titer] in Serum [facility] Work Phone: Comment on above: Expected: 04/05/2023, Expires: 3 Start: 09-04-2022 DEPRESSION ASSESSMENT DEPRESSION ASSESSMENT [facility] Start: 08-12-2022 [facility] Work Phone: Start: 06-25-2022 [facility] Work Phone: Start: 01-12-2022 COVID-19 VACCINE (2 - Moderna series) COVID-19 VACCINE (2 - Moderna series) [facility] Start: 12-19-2019 PAP TESTING PAP TESTING [facility] Start: 12-19-2019 Screening for malignant neoplasm of cervix [facility] Start: 2017 Pneumococcal vaccination Pneumococcal Vaccine (1 of 2 - PCV) [facility] Start: 2017 Pneumococcal Vaccine: Pediatrics (0 to 5 Years) and At-Risk Patients (6 to 49 Years) (1 of 2 - PCV) Pneumococcal Vaccine: Pediatrics (0 to 5 Years) and At-Risk Patients (6 to 49 Years) (1 of 2 - PCV) [facility] Start: 2016 Annual PCP Team Chronic Disease Visit Annual PCP Team Chronic Disease Visit [facility] Start: 2016 Anxiety Screening Anxiety Screening [facility] Start: 2016 Depression Screening Depression Screening [facility] Start: 2016 HEPATITIS C SCREENING HEPATITIS C SCREENING [facility] Start: 2016 Hepatitis C screening Hepatitis C Screening [facility] Start: 2016 HIV SCREENING HIV SCREENING [facility] Start: 2016 HIV screening HIV Screening [facility] Start: 2014 Meningococcal B Vaccine: Consider Based On Risk (1 of 2 - Patient Seeks Protection) Meningococcal B Vaccine: Consider Based On Risk (1 of 2 - Patient Seeks Protection) [facility] Start: 2014 MENINGOCOCCAL B: Consider based on risk (1 of 2 - Patient Seeks Protection) MENINGOCOCCAL B: Consider based on risk (1 of 2 - Patient Seeks Protection) [facility] Start: 2014 Screening for Chlamydia trachomatis CHLAMYDIA SCREEN [facility] Start: 2013 HIV screening HIV SCREENING DISCUSSION [facility] Start: 2012 PEDS TO ADULT TRANSITION ANNUAL ASSESSMENT PEDS TO ADULT TRANSITION ANNUAL ASSESSMENT [facility] Start: 12-19-2011 Varicella vaccination Varicella Vaccines (1 of 2 - 13+ 2-dose series) [facility] Start: 11-17-2011 HPV VACCINE (2 - 2-dose series) HPV VACCINE (2 - 2-dose series) [facility] Start: 11-17-2011 HPV Vaccines (2 - 2-dose series) HPV Vaccines (2 - 2-dose series) [facility] Start: 11-17-2011 Vaccination for human papillomavirus HPV VACCINE ADOL (2 - 2-dose series) [facility] Start: 05-24-2011 Glaucoma screening Dilated Retinal Exam [facility] Start: 05-24-2011 Hepatitis C antibody, confirmatory test Dilated Retinal Exam [facility] Start: 2010 Depression Monitoring Depression Monitoring [facility] Start: 2010 PEDS TO ADULT TRANSITION INITIAL DISCUSSION PEDS TO ADULT TRANSITION INITIAL DISCUSSION [facility] Start: 2008 3 comp foot exam completed Diabetic Foot Exam [facility] Start: 2008 Diabetic foot examination Diabetic Foot Exam [facility] Start: 2004 Pneumococcal vaccination [facility] Start: 1998 Hepatitis C screening HEPATITIS C VIRUS SCREENING [facility] Start: 1998 HIV screening HIV Screening [facility] Start: 1998 Screening for Chlamydia trachomatis GONORRHEA SCREEN [facility] Basic metabolic 2008 panel with ionized calcium - Serum or Plasma [facility] Electrocardiographic procedure [facility] Hemoglobin A1c/Hemoglobin.total in Blood HEMOGLOBIN A1C (POC) Lab Routine Poorly controlled type 2 diabetes mellitus (HCC) Ordered: 08/08/2023 [facility] Work Phone: Comment on above: Ordered: 08/08/2023 MRA Head vessels [facility] Patient Education [facility] Work Phone: Patient referral [facility] Work Phone: Polysomnography [facility] Work Phone: Polysomnography [facility] Polysomnography [facility] Urine microalbumin/creatinine ratio measurement [facility] Work Phone: End: 05-04-2024 Us soft tissue head & neck real time imge docm US THYROID/PARATHYROID Radiology Routine Type II diabetes mellitus with manifestations (HCC) 1 Occurrences starting 04/05/2023 until 05/04/2024 [facility] Work Phone: Comment on above: 1 Occurrences starting 04/05/2023 until 05/04/2024 XR Chest PA and Lateral [facility] Immunizations Immunization Date Immunization Notes Care Provider Fa gaetano 12-08-2021 tetanus toxoid, redu brannon diphtheria toxoid, and acellular pertussis vaccine, adsorbed Dr. Maren Sultana Work Phone: [facility] 02-21-2021 tetanus toxoid, redu brannon diphtheria toxoid, and acellular pertussis vaccine, adsorbed Paige Cioce LACTATION SPECIALIST.DATA INTEGRATION DEVELOPER Work Phone: [facility] 08-17-[address] PATRIA PARRA DO [facility] 08-17-2016 meningococcal polysaccharide (groups A, C, Y and W-135) diphtheria toxoid conjugate vaccine (MCV4P) DR PATRIA PARRA DO [facility] 05-19-2011 human papilloma viru s vaccine, quadrivalent Paige Cioce LACTATION SPECIALIST.DATA INTEGRATION DEVELOPER Work Phone: [facility] Work Phone: 05-19-[address] PATRIA PARRA DO [facility] 05-19-2011 meningococcal polysaccharide (groups A, C, Y and W-135) diphtheria toxoid conjugate vaccine (MCV4P) DR PATRIA PARRA DO [facility] 05-19-2011 Meningococcal, MCV4, unspecified conjugate formulation(groups A, C, Y and W-135) Paige Cioce LACTATION SPECIALIST.DATA INTEGRATION DEVELOPER Work Phone: [facility] 05-19-2011 tetanus toxoid, redu brannon diphtheria toxoid, and acellular pertussis vaccine, adsorbed DR PATRIA PARRA DO [facility] 05-19-2011 HPV, unspecified formulation Mona Collazo DO Work Phone: [facility] 04-25-2003 diphtheria, tetanus toxoids and acellular pertussis vaccine DR PATRIA PARRA DO [facility] 04-25-2003 measles, mumps and rubella virus vaccine Paige Hectoroccyn LACTATION SPECIALIST.DATA INTEGRATION DEVELOPER Work Phone: [facility] Work Phone: 04-25-2003 measles/mumps/rubell a virus vaccine DR PATRIA PARRA DO [facility] 04-25-[address], inactivated DR PATRIA PARRA DO [facility] 03-25-2002 diphtheria, tetanus toxoids and acellular pertussis vaccine DR PATRIA PARRA DO [facility] 03-25-2002 haemophilus influenz ae type b vaccine, HbOC conjugate Paige Cioce LACTATION SPECIALIST.DATA INTEGRATION DEVELOPER Work Phone: [facility] Work Phone: 03-25-2002 haemophilus influenz ae type b vaccine, PRP-T conjugate DR PATRIA PARRA DO [facility] 03-25-[address], inactivated [address] PATRIA PARRA DO [facility] 02-11-2000 diphtheria, tetanus toxoids and acellular pertussis vaccine DR PATRIA PARRA DO [facility] 02-11-2000 haemophilus influenz ae type b vaccine, HbOC conjugate Paige Cioce LACTATION SPECIALIST.DATA INTEGRATION DEVELOPER Work Phone: [facility] Work Phone: 02-11-2000 haemophilus influenz ae type b vaccine, PRP-T conjugate DR PATRIA PARRA DO [facility] 02-11-2000 hepatitis B pediatri c vaccine DR PATRIA PARRA DO [facility] 02-11-2000 hepatitis B vaccine, pediatric or pediatric/adolescent dosage Paige Cioce LACTATION SPECIALIST.DATA INTEGRATION DEVELOPER Work Phone: [facility] Work Phone: 02-11-2000 measles, mumps and rubella virus vaccine Paige Cioce LACTATION SPECIALIST.DATA INTEGRATION DEVELOPER Work Phone: [facility] Work Phone: 02-11-2000 measles/mumps/rubell a virus vaccine DR PATRIA PARRA DO [facility] 10-30-1999 diphtheria, tetanus toxoids and acellular pertussis vaccine DR PATRIA PARRA DO [facility] 10-30-1999 haemophilus influenz ae type b vaccine, HbOC conjugate Paige Cioce LACTATION SPECIALIST.DATA INTEGRATION DEVELOPER Work Phone: [facility] Work Phone: 10-30-1999 haemophilus influenz ae type b vaccine, PRP-T conjugate DR PATRIA PARRA DO [facility] 10-30-1999 hepatitis B pediatri c vaccine DR PATRIA PARRA DO [facility] 10-30-1999 hepatitis B vaccine, pediatric or pediatric/adolescent dosage Paige Cioce LACTATION SPECIALIST.DATA INTEGRATION DEVELOPER Work Phone: [facility] Work Phone: 10-30-1999 poliovirus vaccine, inactivated DR PATRIA PARRA DO [facility] 02-22-1999 diphtheria, tetanus toxoids and acellular pertussis vaccine DR PATRIA PARRA DO [facility] 02-22-1999 haemophilus influenz ae type b vaccine, HbOC conjugate Paige Cioce LACTATION SPECIALIST.DATA INTEGRATION DEVELOPER Work Phone: [facility] Work Phone: 02-22-1999 haemophilus influenz ae type b vaccine, PRP-T conjugate DR PATRIA PARRA DO [facility] 02-22-1999 hepatitis B pediatri c vaccine DR PATRIA PARRA DO [facility] 02-22-1999 hepatitis B vaccine, pediatric or pediatric/adolescent dosage Paige Cioce LACTATION SPECIALIST.DATA INTEGRATION DEVELOPER Work Phone: [facility] Work Phone: 02-22-1999 poliovirus vaccine, inactivated DR PATRIA PARRA DO [facility] 1998 hepatitis B pediatri c vaccine DR PATRIA PARRA DO [facility] 1998 hepatitis B vaccine, pediatric or pediatric/adolescent dosage Paige Cioce LACTATION SPECIALIST.DATA INTEGRATION DEVELOPER Work Phone: [facility] Work Phone: Payers Date Payer Category Payer Medicaid [facility] [id number] 2024 Unknown EVANS SCHAEFER [id number] 2024-Present [address] [place] [address] [id number] 2024 Self-pay [id number] 2022 Medicaid [id number] 2022 Unknown [id number] 1998 Unknown [id number] 1998 Unknown [id number] 1998 Unknown [id number] 1998 Unknown [id number] 1998 Unknown [id number] 1998 Unknown [id number] Unknown [id number] Unknown [id number] Unknown [id number] Unknown [id number] Unknown [id number] Unknown [id number] Unknown [id number] Unknown [id number] Unknown [id number] [id number] Unknown [id number] [id number] Unknown [id number] [id number] Unknown [id number] [id number] Unknown [id number] Unknown [id number] Social History Date Type Detail Facility Start: 11-17-2021 End: 11-08-2023 Tobacco smoking status MEIS Unknown if ever smoked [facility] Start: 2000 Sex Assigned At Female [facility] Start: 12-21-2020 End: 03-13-2023 Tobacco smoking status Light tobacco smoker (finding) [facility] Sex Assigned At Sex [facility] Tobacco Nicotine Use: Va ping Product in Last 90 Days. Type: Electronic Cigarettes (Vaping). [facility] Start: 11-06-2024 End: 05-16-2025 Tobacco smoking status Smokes tobacco daily (finding) [facility] Start: 04-05-2023 Tobacco smoking status NHIS Never smoked tobacco [facility] History of tobacco use Passive smoker [facility] Start: 04-05-2023 Tobacco use and exposure Smokeless tobacco non-user [facility] Start: 04-05-2023 End: 05-07-2025 Alcohol intake Current non-drinker of alcohol (finding) [facility] Start: 04-05-2023 End: 05-07-2025 History of Social function [facility] Start: 04-05-2023 End: 05-07-2025 Tobacco use panel [facility] Start: 08-05-2012 National Score (1-100), lower number is lower risk 63 [facility] Start: 04-05-2023 Tobacco Comment grandmother alex jaeger - she is child's guardian [facility] Start: 2000 Sex Assigned At Not on file [facility] How often to you hav e a drink containing alcohol? Never [place] [facility] Start: 09-07-2024 End: 11-24-2024 Sex Female (finding) [facility] NEGATED: Highlighted row [facility] Medical Equipment Procedure Code Equipment Code Equipment Origin al Text Equipment Identifier Dates Arthroscopy, knee, with meniscectomy SUT TAPE,T-LOOP [id number] FDA Start: 11-22-2023 Arthroscopy, knee, with meniscectomy Tendon/ligament bone anchor, non-bioabsorbable ()[id number] FDA Start: 11-22-2023 Arthroscopy, knee, with meniscectomy Soft-tissue/mesh anchor, non-bioabsorbable ()[id number] FDA Start: 11-22-2023 Arthroscopy, knee, with meniscectomy Soft-tissue/mesh anchor, non-bioabsorbable ()[id number] FDA Start: 11-22-2023 Arthroscopy, knee, with meniscectomy Soft-tissue/mesh anchor, non-bioabsorbable ()[id number] K66 FDA Start: 11-22-2023 Arthroscopy, knee, with meniscectomy Soft-tissue/mesh anchor, non-bioabsorbable [id number] FDA Start: 11-22-2023 Arthroscopy, knee, with meniscectomy Soft-tissue/mesh anchor, non-bioabsorbable ()[id number] FDA Start: 11-22-2023 Arthroscopy, knee, with meniscectomy Soft-tissue/mesh anchor, non-bioabsorbable ()[id number])[id number] B43 FDA Start: 11-22-2023 Arthroscopy, knee, with [...] refills, # 1 EA, 3 Refill(s), Pharmacy: [facility] [address] Diabetes, 175.5, cm, 02/08/21 14:56:00 EDT, Height, [...] Start: 06-07-2022 Lancets (Freesty le Lancets) [facility] Start: 06-07-2022 See Instructions , Tests twice [...] strip Start: 06-07-2022 Lancets (Freesty le Lancets) [address] [place] [address] Start: 06-07-2022 See Instructions , Tests twice [...] 09-23-2022 Lancets (Freesty le Lancets) 28 gauge [facility] Start: 06-07-2022 Blood Sugar Diagnostic (Freestyle Test) strip Start: 06-07-2022 End: 09-22-2022 Blood Sugar Diagnostic (Freestyle Test) strip Start: 09-22-2022 End: 09-23-2022 [id number], [id number], [id number], [id number], [id number], [id number] Start: 03-09-2023 End: 05-07-2025 Comment on above: Use up to 3 [...] refills, # 1 EA, 3 Refill(s), Pharmacy: [facility] Diabetes, 175.5, cm, 02/08/21 14:56:00 EDT, Height, 136.8, kg, 02/08/21 14:56:00 EDT, Dosing Weight Start: 02-08-2021 See Instructions , qs 1 month supply. check daily. Dx: uncontrolled DM. Adjust to formulary requirements/brand, # 1 EA, 11 Refill(s), Pharmacy: [facility] 180, cm, 02/24/20 14:27:00 EDT, Height, 126.2, kg, 03/18/20 14:08:00 EDT, Dosing Weight Start: 03-26-2020 Blood Sugar Diagnostic (Freestyle Test) strip Start: 06-07-2022 End: 09-22-2022 Blood Sugar Diagnostic (Freestyle Test) strip Start: 09-22-2022 End: 09-23-2022 See Instructions , Tests twice daily. Please dispense enough for 3 months with 3 refills, # 1 EA, 3 Refill(s), [facility] [address] Diabetes, 175.5, cm, 02/08/21 14:56:00 EDT, Height, 136.8, kg, 02/08/21 14:56:00 EDT, Dosing Weight Start: 02-08-2021 See Instructions , qs 1 month supply. check daily. Dx: uncontrolled DM. Adjust to formulary requirements/brand, # 1 EA, 11 Refill(s), [facility] [address] 180, cm, 02/24/20 14:27:00 [...] Assessment Result Facility 05-02-2024 Functional Status Independent [facility] 05-02-2024 Functional Status Standard Safet y ID band on, Allergy Band on, Call device within reach, Bed in low position, Wheels locked, personal items within reach, Bedside Cart Locked, Visitor at bedside [facility] 10-24-2023 Functional Status Independent [facility] 12-09-2022 Functional Status Independent [facility] 12-09-2022 Functional Status Standard Safet y ID band on, Allergy Band on, Call device within reach, Bed in low position, Wheels locked, Visitor at bedside [facility] 12-07-2022 Functional Status ID band on, Call device within reach, Bed in low position, Wheels locked, Bedside Cart Locked, Safety level maintained [facility] 07-10-2022 Functional Status [facility] 07-10-[facility]22 Functional Status Standard Safet y ID band on, Allergy Band on, Call device within reach, Bed in low position, Wheels locked, Upper/Half-Length side-rails up, Phone within reach, personal items within reach, Assistive devices within reach, Toileting device within reach, Bedside Cart Locked, Visitor at bedside, Safety level maintained [facility] 04-04-2022 Functional Status Ambulating in huerta, Ambulating in room, Awake [facility] 02-16-2022 Functional Status Standard Safet y ID band on, Allergy Band on, Call device within reach, Bed in low position, Wheels locked [facility] 12-26-2021 Functional Status [facility] 02-21-2021 Are you deaf, or do you have serious difficulty hearing No 02/21/2021 5:37 PM Bernadette Whitehead RN No [facility] 02-21-2021 Are you blind, or do you have serious difficulty seeing, even when wearing glasses No 02/21/2021 5:37 PM Bernadette Whitehead RN No [facility] 02-21-2021 Do you have serious difficulty walking or climbing stairs No 02/21/2021 5:37 PM EDT Bernadette Stanford RN No [facility] 02-21-2021 Do you have difficul ty dressing or bathing No 02/21/2021 5:37 PM EDT Bernadette Stanford RN No [facility] 02-21-2021 Because of a physica l, mental, or emotional condition, do you have difficulty doing errands alone such as visiting a physician's office or shopping No 02/21/2021 5:37 PM EDT Bernadette Stanford RN No [facility] Mental Status Date Assessment Result Facility 05-16-2025 Cognitive function Level Of Cons ciousness Awake;Alert;Appropriate;Fol lows Commands [facility] Work Phone: 01-17-2025 Cognitive function Voice/Name [facility] Work Phone: 10-14-2024 Cognitive function Level Of Cons ciousness Awake;Alert;Appropriate;Fol lows Commands [facility] Work Phone: 05-02-2024 Mental Status Orientation Oriented x 4 [facility] 05-02-2024 Mental Status [facility] 11-22-2023 Cognitive function Voice/Name [facility] Work Phone: 10-24-2023 Mental Status Orientation Oriented x 4 [facility] 10-24-2023 Mental Status [facility] 12-09-2022 Mental Status Orientation Oriented x 4 [facility] 12-09-2022 Mental Status [facility] 12-07-2022 Mental Status Oriented x 4 [facility] 12-07-2022 Mental Status [facility] 07-10-2022 Mental Status Orientation Oriented x 4 [facility] 07-10-2022 Mental Status [facility] 04-04-2022 Mental Status Oriented x 4 [facility] 02-16-2022 Mental Status Orientation Oriented x 4 [facility] 12-26-2021 Mental Status [facility] 02-21-2021 Because of a physica l, mental, or emotional condition, do you have serious difficulty concentrating, remembering, or making decisions No 02/21/2021 5:37 PM EDT Bernadette Stanford, MCKENNA No [facility] Clinical Notes 02-10-2021 to 05-16-2025 Note Date & Type Note Facility 05-16-2025 Discharge summary [facility] 05-16-2025 Discharge summary Note Date/Time May 16, 2025 2:43pm [facility] Medical Records Department [address] [place] [address] Emergency Department Summary 05/16/25 MR#: [id number] Acct: [id number] Name: SUGEY WEST Rep #:[id number] : 2000 24 From: Shlomo Santizo DO PCP: Dr. Eliazar Amos MD Status:R ER Location: ED ADDENDUM by Dr. Shlomo Santizo DO on 05/16/25 at 1443 Patient is EKG reviewed showed sinus rhythm rate of 73 bpm with MO interval 186 05/16/25 1443<Electronically signed by Shlomo Santizo DO> Cosigner Signature (if applicable): cc: Dr. Eliazar Amos MD ~* Signed HPI History of Present Illness Chief Complaint: Hyperglycemia Narrative Narrative: Patient is a 24-year-old female with a past medical history of diabetes, asthma,hypertension, hypercholesteremia, generalized anxiety disorder, hypertension, migraines, depression, NEELAM who presents to the emergency department chief complaint of elevated blood glucose. She states that earlier today she noted that she was not feeling well checked her blood glucose from her continuous monitor read 350 she states that she took 15 units of insulin and is now at 334. She states that she was recently discontinued Trulicity as her A1c went to 9 and this was not working. She otherwise has no complaints just feels tired. [facility] Medical History Acute back pain Upper respiratory infection Poor [...] PRN anxiety #90 tabs 08/21/24 Unknown Rx blood sugar diagnostic (OneTouch #10 ea 11/06/24 Unkno wn History Verio test strips) blood-glucose meter (OneTouch #1 ea 11/06/24 Unknown H istory Verio Flex Meter) lancets 30 gauge (OneTouch Delica #100 ea 11/06/24 Unk nown History Plus Lancet) cholecalciferol (vitamin D3) 125 125 mcg PO QDAY #90 t abs 11/15/24 Unknown Rx mcg (5,000 unit) tablet cyanocobalamin (vitamin B-12) 1,000 mcg PO QDAY #90 ta bs 11/15/24 Unknown Rx 1,000 mcg tablet famotidine 40 mg tablet 40 mg PO QDAY #90 tabs 11/15 Unknown Rx losartan 25 mg tablet 25 mg PO QDAY #30 tabs 11/15 Unknown Rx albuterol sulfate 90 mcg/actuation 2 puff inhalation [...] / Time vancomycin Allergy Mild Hives Verified 05/16/25 12:17 amoxicillin Allergy Unknown unknown Verified 05/16/25 12:17 azithromycin (From Zithromax Allergy Unknown unknown Verified 05/16/25 12:17 Z-Clyde) Penicillins Allergy Unknown unknown Verified 05/16/25 12:17 Family History Father No problems noted. Grandfather Diabetes Grandmother Hypertension Aunt Hypertension Other Anxiety Arthritis Asthma Depression Osteoporosis Respiratory disease Severe allergy Surgical History History of nasal cauterization History of tonsillectomy and adenoidectomy Hx of myringotomy History of nasal cauterization Social History housing: house Smoking Status: Current every day smoker tobacco [...] to vaping, denies marijuana use, denies edibles ROS ROS ED ROS Narrative Constitutional: Denies any fevers, chills, headaches Cardiovascular: Denies chest pain or palpitations Respiratory: Denies coughing wheezing shortness of breath Abdomen: Denies abdominal pain nausea vomiting diarrhea : Denies any urinary symptoms Neurological: Denies any numbness, weakness, tingling Musculoskeletal: Denies back pain Skin: Denies any rashes or lesions EXAM Physical Exam Narrative Exam Narrative: General: Patient was lying in bed resting comfortably did not appear to be in acute distress Head: Atraumatic, normocephalic Eyes: PERRL bilaterally, EOMI bilaterally, no conjunctival injection noted Neck: Soft, supple, trachea midline Cardiovascular: Regular rate and rhythm no murmurs gallops rubs noted Respiratory: Clear to auscultation bilaterally Abdomen: Soft, nondistended, no tenderness to palpation Extremities: +5/5 strength noted in the bilateral lower extremities Neurological: Patient foot commands and that she was at [facility] year [id number] Skin: Warm, dry, intact no rashes lesions noted Const Vital Signs: 05/16/25 12:14 05/16/25 12:14 Temperature 98.6 F Temperature Source Oral Pulse Rate 66 Respiratory Rate 15 Respiratory Effort Normal Non-Labored Respiratory Pattern Normal Blood Pressure 134/85 H Blood Pressure Mean 101 Pulse Ox 99 Oxygen Delivery Method Room Air MDM MDM MDM Narrative Medical decision making narrative: Patient is a 24-year-old female who presents to the emergency department with concern for hyperglycemia. On the differential diagnose includes but not limited to hyperglycemia, DKA, HHS, UTI, . Once workup is obtained andreviewed she will be reevaluated. Patient be given IV fluids. Patient's CBC reviewed showed a white blood count is normal at 7.6, hemoglobin stable 13.4, platelet count normal at 268. Patient's venous blood gas showed a pH 7.38, sodium normal 137, potassium of 4 anion gap was normal at 11. Patient's AST and ALT were 35 and 47 respectively total bilirubin normal at 0.24. Patient lipase normal at 42, beta-hydroxybutyrate normal at 0.2 pregnancytest negative. Patient urinalysis reviewed and showed no evidence of infection. Patient was given additional IV fluids Patient's repeat blood glucose was noted be 195. Patient was reevaluated and feels much improved and like to go home at this point time. She advised to follow-up with her doctors in outpatient setting andreturn with worsening symptoms or any concerns. She is agreeable this plan all course concerns answered she was discharged home in stable condition. Lab Data Labs: Laboratory Results - last 24 hr 05/16/25 05/16/25 12:27 12:32 WBC 7.6 RBC 4.03 L Hgb 13.4 Hct 38.2 MCV 94.8 MCH 33.3 H MCHC 35.1 RDW Std Deviation 39.8 RDW Coeff of [place] 11.7 Plt Count 268 MPV 9.2 Immature Gran % (Auto) 0.300 Neut % (Auto) 66.8 Lymph % (Auto) 27.3 [place] % (Auto) 4.2 Eos % (Auto) 1.1 Baso % (Auto) 0.3 Absolute Neuts (auto) 5.1 Absolute Lymphs (auto) 2.08 Nucleated RBC % 0 Sodium 137 Potassium 4.0 Chloride 101 Carbon Dioxide 25.0 Anion Gap 11 BUN 8 Creatinine 0.77 Estim Creat Clear Calc 171.57 Est GFR (MDRD) Non-Af 108 BUN/Creatinine Ratio 10.7 Glucose 337 H Lactic Acid 1.4 Calcium 9.2 Total Bilirubin 0.24 AST 35 H ALT 47 H Alkaline Phosphatase 65 Total Protein 6.6 Albumin 3.9 Globulin 2.7 Albumin/Globulin Ratio 1.5 Lipase 42 b-Hydroxybutyric mmol/L 0.2 Serum , Qual NEGATIVE Urine Color Yellow Urine Clarity Clear Urine pH 6.5 Ur Specific [place] 1.010 Urine Protein Negative Urine Glucose (UA) 1000 H Urine Ketones 15 H Urine Occult Blood Negative Urine Nitrite Negative Urine Bilirubin Negative Urine Urobilinogen Normal Ur Leukocyte Esterase Negative Urine RBC 0 SEEN Urine WBC 0-5 SEEN Ur Squamous Epith Cells 0-5 SEEN Urine Bacteria 0 SEEN Urine Mucus 0 SEEN ABG Data ABG results: ABG 05/16/25 12:50 Specimen Type JULY Sample Site Not entered O2 % 21.0 VBG pH 7.38 VBG pO2 37 VBG HCO3 32 H VBG Total CO2 33 VBG O2 Sat (Calc) 69 VBG Base Excess 7 H POC Mix VBG pCO2 Pt Tmp 52.7 H O2 Delivery Device Not entered Discharge Plan Triage Chief Complaint: Hyperglycemia ED Provider: Shlomo Santizo Dx/Rx/DC Orders Clinical Impression: Generalized anxiety disorder, Diabetes, Hyperglycemia Prescriptions: No Action (DME) FreeStyle Jazmin 3 Sensor [...] 25 mg PO QDAY Qty: 30 3RF famotidine 40 mg tablet 40 mg PO [...] BID Qty: 100 Rx Instructions: As directed benzonatate 200 mg capsule 200 mg PO BID PRN (Reason: cough) 7 Days Qty: 14 0RF cyclobenzaprine 5 mg tablet 5 mg PO TID PRN (Reason: muscle spasm) 3 Days Qty: 9 0RF hydroxyzine HCl 25 mg tablet 25 mg PO BID PRN (Reason: anxiety) Qty: 90 1RF albuterol sulfate 90 mcg/actuation HFA aerosol inhaler 2 puff INHALATION Q6H PRN (Reason: Shortness Of Breath Or Wheezing) Qty: 8.5 1RF Primary Care Provider: Eliazar Amos Referrals: Eliazar Amos MD [Primary Care Provider] - Activity Restrictions/Additional Instructions: Follow-up your doctor in outpatient setting. Return with worsening symptoms or any concerns. Your blood work did not show any evidence of DKA here in the emergency department. Print Language: Estonian Disposition Disposition: Home, Self Care What to do if you have Problems For any increased pain, shortness of breath, bleeding, nausea or vomiting, chestpain, or any unexpected problems, contact your Primary Care Provider. Call [facility] ([phone]) or report to the closest Emergency Room. Call 911 if necessary. 05/16/25 1441 <Electronically signed by Shlomo Santizo DO> Marilia Signature (if applicable): CC: Dr. Eliazar Amos MD ~ Signed [facility] Work Phone: 1(211) 696-595509-03-2025 NoteHNO ID: [id number] Author: DULCE SMITH RN Service: ? Author Type: Registered Nurse Type: Progress Notes Filed: 05/07/2025 15:31 Note Text: DIABETES CARE AND EDUCATION VISIT Location: [place] Type of visit: In person individual PATIENT'S MAIN CONCERN TODAY: Learn more Support person present for education today: none Cognitive ability: Alert and oriented Motivation to learn: Interested Learning barriers identified by educator: none Method of instruction: written, verbal, and demonstration Pre-pump Training Assessment - patient is interested in pursuing either Omnipod pump or a Medtronic InPen - encouraged her to begin making a food log and to follow up with office as her blood sugar/insulin needs become more consistent and we can assess her skill at carb counting based on logs Current CGM: DoCircuitse 3+ In need of training for CGM: No Reports she has used Omnipod Current insulin therapy : Injection - restarting today on basal/bolus Estimated total daily dose (TDD): 45 units + 30 units base to start, will need to titrate up Current use of I:C ratio: YES/NO: No - reports she has done carb counting in past Current correction scale: YES/NO: Yes Understanding of basic insulin pump: Basal/bolus, Insulin action time, IOB, I:C ratio, Meal/correction bolus, Correction factor/Insulin sensitivity, Blood glucose targets: YES/NO: Yes Reviewed insulin pen instructions with pat HANDOUTS: Healthy You: Survival Skills and Healthy You: Planning Healthy Meals LEARNING RESPONSE: Taking medications: Demonstrated understanding/competency today or at previous visit Monitoring glucose: Demonstrated understanding/competency today or at previous visit POSSIBLE FUTURE TOPICS: 1. DIABETES CARE AND EDUCATION PLAN: Education completed and annual diabetes education follow-up visit recommended Time Spent (Minutes): 30 This visit note will be communicated to the healthcare provider via access to shared medical record. SIGNATURE: Dulce Smith RN PATIENT NAME: Sugey West DATE: May 07, 2025 TIME: 2:54 [facility]09-03-2025 History of Present illness Narrative* Dulce Smith RN - 05/07/2025 2:53 PM EDT DIABETES CARE AND EDUCATION VISIT Location: [place] Type of visit: In person individual PATIENT'S MAIN CONCERN TODAY: Learn more Support person present for education today: none Cognitive ability: Alert and oriented Motivation to learn: Interested Learning barriers identified by educator: none Method of instruction: written, verbal, and demonstration Pre-pump Training Assessment - patient is interested in pursuing either Omnipod pump or a MedtronicInPen - encouraged her to begin making a food log and to follow up with office as her blood sugar/insulin needs become more consistent and we can assess her skill at carb counting based on logs Current CGM: DoCircuitse 3+ In need of training for CGM: No Reports she has used Omnipod Current insulin therapy : Injection - restarting today on basal/bolus Estimated total daily dose (TDD): 45 units + 30 units base to start, will need to titrate up Current use of I:C ratio: YES/NO: No - reports she has done carb counting in past Current correction scale: YES/NO: Yes Understanding of basic insulin pump: Basal/bolus, Insulin action time, IOB, I:C ratio, Meal/correction bolus, Correction factor/Insulin sensitivity, Blood glucose targets: YES/NO: Yes Reviewed insulin pen instructions with pat HANDOUTS: Healthy You: Survival Skills and Healthy You: Planning Healthy Meals LEARNING RESPONSE: Taking medications: Demonstrated understanding/competency today or at previous visit Monitoring glucose: Demonstrated understanding/competency today or at previous visit POSSIBLE FUTURE TOPICS: 1. DIABETES CARE AND EDUCATION PLAN: Education completed and annual diabetes education follow-up visit recommended Time Spent (Minutes): 30 This visit note will be communicated to the healthcare provider via access to shared medical record. SIGNATURE: Dulce Smith RN PATIENT NAME: Sugey West DATE: May 07, 2025 TIME: 2:54 [facility] History of Present illness Narrative* Paige Muller APRN.EVA - 05/07/2025 2:45 PM EDT Images from the original note were not included. OFFICE VISIT PROGRESS NOTE CC Sugey West is a 23 year old who presents today for blood sugar review, DM med dose review, adjust. 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 - multiple appts scheduled and cancelled by patient No change in nutrition Was denied gonzalomaria g by insurance Has not been on insulins at all If needs to go back on insulin, wants to re-look at possibly insulin pump therapy Is using her CGM -- compliant and benefiting from CGM use CURRENT DM MEDS TRULICITY 1.5 mg weekly injection METFORMIN 500 2 tab BID SMBG Freestyle jazmin 3 Type of Monitor: [...] APPT, PATIENT DID NOT COMPLETE Recent Labs 04/05/23 1530 04/05/23 1532 06/21/23 1230 02/02/24 1139 02/02/24 1151 01/01/25 0920 01/01/25 0927 ALT 30 -- -- 23 -- 59* -- AST 21 -- -- 20 -- 41* -- UCRR -- 128.4 -- -- 256.6 -- 62.5 UALBR -- <12.0 -- -- 213.8 -- <12.0 UALBCR -- <9 -- -- 83* -- <19 TSH 0.777 -- -- -- -- 3.010 -- TPROT 6.9 -- -- 7.3 -- 7.0 -- ALB 4.1 -- -- 4.5 -- 4.3 -- CA 9.6 -- -- 10.0 -- 9.6 -- TBILI 0.2 -- -- 0.4 -- 0.3 -- ALKPHOS 72 -- -- 65 -- 67 -- GLUC 235* -- -- 202* -- 264* -- BUN 14 -- -- 11 -- 10 -- CREAT 0.60 -- -- 0.64 -- 0.64 -- NA 139 -- -- 140 -- 141 -- K 3.8 -- -- 3.9 -- 4.1 -- CHLOR 102 -- -- 105 -- 103 -- CO2 24 -- -- 27 -- 27 -- ANION 13 -- -- 8* -- 11 -- EGFROTH 129 -- -- 126 -- 125 -- HBA1C 10.9* -- 9.1* 6.4* -- 7.6* -- Recent Labs 04/05/23 1530 06/21/23 1230 02/02/24 1139 01/01/25 0920 TG 210* -- 94 147 CHOL 184 -- 189 178 HDL 36* -- 34* 32* VLDL 42* -- 19 25 LDL 106* -- 136* 120* TCHDL 5.11* -- 5.56* 5.56* LDLHDL 2.94* -- 4.00* 3.75* NONHDL 148* -- 155* 146* HBA1C 10.9* 9.1* 6.4* 7.6* HBA0 266 -- 137 171 PAST MEDICAL HISTORY Diagnosis Date Depression Diabetes [...] use: No Current Outpatient Medications Medication Sig semaglutide (OZEMPIC) 1 mg/dose (4 mg/3 mL) pen Inject 1 mg subcutaneously one time a week. metFORMIN ER (GLUCOPHAGE XR) 500 mg 24 hr tablet Take 2 tabs with breakfast, 2 tabs with dinner Blood-Glucose Sensor (FREESTYLE JAZMIN 3 PLUS SENSOR) osito CHANGE SENSOR EVERY 15 days. USE FOR CONTINUOUS GLUCOSE MONITORING> MULTIPLE INSULIN INJECTIONS. E11.9 cyanocobalamin (VITAMIN B-12) 1,000 mcg tab Take 1 tablet by mouth once daily. cholecalciferol (VITAMIN D-3) 5,000 unit tab Take 1 tablet by mouth once daily. Lancets Checks blood sugar 2 times daily Blood-Glucose Meter DISPENSE ONE METER KIT blood sugar diagnostic (BLOOD GLUCOSE TEST) test strip Use with blood glucose test TWO TIMES DAILY galcanezumab-gnlm (EMGALITY SYRINGE) 120 mg/mL syringe Inject subcutaneously once every month. Do not shake. busPIRone (BUSPAR) 7.5 mg tablet 7.5 mg. fluticasone (FLONASE) 50 mcg/actuation nasal spray place 2 sprays into each nostril once daily nystatin-triamcinolone (MYCOLOG II) cream 0.5 gm, Topical, BID, # 30 gram(s), 0 Refill(s), [facility]acy: [facility] #[id number], 177.5, cm, 03/13/23 10:35:00 EDT, Height, 117.5 SUMAtriptan (IMITREX) 50 mg tablet TAKE 1 TABLET BY MOUTH EVERY 2 HOURS NEEDED FOR HEADACHE. MAXDOSE OF 2 TABLETS A DAY cyclobenzaprine (FLEXERIL) 10 mg tablet Take 10 mg by mouth three times daily. prn Insulin Sanford, Disposable, (BD ULTRAFINE III MINI PEN) 31 [...] swelling, hypertension, CHF or palpitations PHYSICAL EXAMINATION: LMP 12/20/2023 (Exact Date) BP 108/86 (BP Site: Right Arm, BP Position: Sitting, BP Cuff Size: Large Adult) Pulse 74 Temp 36.3 C (97.4 F) (Temporal) Resp 14 Ht 180.3 cm (5' 11) Wt 135.2 kg (298 lb) LMP 12/20/2023 (Exact Date) SpO2 97% BMI 41.56 kg/m GENERAL: alert and appropriate, in no distress and well-hydrated, well nourished SKIN: no rash noted HEAD: normocephalic, no abnormality or lesion noted EYES: pupil sizes are equal NECK: no obvious neck swelling or mass ACANTHOSIS: none noted EXTREMITIES: normal NEUROLOGIC: no obvious deficit ASSESSMENT/PLAN (E11.9, Z79.85) Diabetes mellitus treated with injections of non-insulin medication (HCC) (primary encounter diagnosis) Comment: CGM DOWNLOADED AND REVIEWED FOR OV RECOMMENDATIONS PER REVIEW FOLLOWS: Patient is compliant with CGM use and is benefiting from sensor use. RESTART TOUJEO 30 units daily RESTART HUMALOG 15-15-15 plus SS#2 (pre meal blood sugar) Discussed cannot start SGLT2 with blood sugars as elevated as they are Will need to bring blood sugars down and then can add SGLT2 Patient states wants to trial for 120 days as required by insurance to be able to add MOUNJARO PATIENT WILL STOP TRULICITY due to allergic reaction at site and break out welts (hives) pt sts on abdomen at injection site Patient sts has seen ENDO BALL MACHINE OPERATOR. EPIC chart shows numerous appts cancelled or no show CONSULT TO DM ED for pre pump ed - will see educator today following appt Recommended diet: Low carbohydrate and Low saturated [...] RATIO, URINE, HEMOGLOBIN A1C Paige Muller CNP * Mónica Casiano MA - 05/07/2025 2:42 PM EDT Images from the original note were not included. [facility] in [facility] NoteHNO ID: [id number] Author: PAIGE MULLER APRN.CNP Service: ? Author Type: Nurse Practitioner Type: Progress Notes Filed: 05/07/2025 15:13 Note Text: OFFICE VISIT PROGRESS NOTE CC Sugey West is a 23 year old who presents today for blood sugar review, DM med dose review, adjust. 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 - multiple appts scheduled and cancelled by patient No change in nutrition Was denied unruly blum shamikadamarimaria g by insurance Has not been on insulins at all If needs to go back on insulin, wants to re-look at possibly insulin pump therapy Is using her CGM -- compliant and benefiting from CGM use CURRENT DM MEDS TRULICITY 1.5 mg weekly injection METFORMIN 500 2 tab BID SMBG Freestyle jazmin 3 Type of Monitor: [...] APPT, PATIENT DID NOT COMPLETE Recent Labs 04/05/23 1530 04/05/23 1532 06/21/23 1230 02/02/24 1139 02/02/24 1151 01/01/25 0920 01/01/25 0927 ALT 30 -- -- 23 -- 59* -- AST 21 -- -- 20 -- 41* -- UCRR -- 128.4 -- -- 256.6 -- 62.5 UALBR -- <12.0 -- -- 213.8 -- <12.0 UALBCR -- <9 -- -- 83* -- <19 TSH 0.777 -- -- -- -- 3.010 -- TPROT 6.9 -- -- 7.3 -- 7.0 -- ALB 4.1 -- -- 4.5 -- 4.3 -- CA 9.6 -- -- 10.0 -- 9.6 -- TBILI 0.2 -- -- 0.4 -- 0.3 -- ALKPHOS 72 -- -- 65 -- 67 -- GLUC 235* -- -- 202* -- 264* -- BUN 14 -- -- 11 -- 10 -- CREAT 0.60 -- -- 0.64 -- 0.64 -- NA 139 -- -- 140 -- 141 -- K 3.8 -- -- 3.9 -- 4.1 -- CHLOR 102 -- -- 105 -- 103 -- CO2 24 -- -- 27 -- 27 -- ANION 13 -- -- 8* -- 11 -- EGFROTH 129 -- -- 126 -- 125 -- HBA1C 10.9* -- 9.1* 6.4* -- 7.6* -- Recent Labs 04/05/23 1530 06/21/23 1230 02/02/24 1139 01/01/25 0920 TG 210* -- 94 147 CHOL 184 -- 189 178 HDL 36* -- 34* 32* VLDL 42* -- 19 25 LDL 106* -- 136* 120* TCHDL 5.11* -- 5.56* 5.56* LDLHDL 2.94* -- 4.00* 3.75* NONHDL 148* -- 155* 146* HBA1C 10.9* 9.1* 6.4* 7.6* HBA0 266 -- 137 171 PAST MEDICAL HISTORY Diagnosis Date Depression Diabetes [...] use: No Current Outpatient Medications Medication Sig semaglutide (OZEMPIC) 1 mg/dose (4 mg/3 mL) pen Inject 1 mg subcutaneously one time a week. metFORMIN ER (GLUCOPHAGE XR) 500 mg 24 hr tablet Take 2 tabs with breakfast, 2 tabs with dinner Blood-Glucose Sensor (FREESTYLE JAZMIN 3 PLUS SENSOR) osito CHANGE SENSOR EVERY 15 days. USE FOR CONTINUOUS GLUCOSE MONITORING> MULTIPLE INSULIN INJECTIONS. E11.9 cyanocobalamin (VITAMIN B-12) 1,000 mcg tab Take 1 tablet by mouth once daily. cholecalciferol (VITAMIN D-3) 5,000 unit tab Take 1 tablet by mouth (more content not included)...[facility]09-03-2025 NoteHNO ID: [id number] Author: MÓNICA CASIANO MA Service: ? Author Type: Manager Psychiatry Type: Progress Notes Filed: 05/07/2025 15:13 Note Text:[facility]07-17-2025 Evaluation note* Diagnosis Onset Date Resolution Status Admit Date Acute back pain acute March 5:59pm Dermatitis chronic March 20 5:59pm Essential hypertension chronic Ju 2024 5:59pm Migraine chronic March 20 5:59pm Type 2 diabetes mellitus chronic March 20, 2025 5:59pm [facility] Work Phone: 1(125) 673-919207-17-2025 Evaluation note* Diagnosis Onset Date Resolution Status Admit Date Acute back pain acute March 5:59pm Dermatitis chronic March 20 5:59pm Essential hypertension chronic Ju 2024 5:59pm Migraine chronic March 20 5:59pm Type 2 diabetes mellitus chronic March 20, 2025 5:59pm Acute back pain acute May 022024 9:44am Yeast vaginitis acute May 022024 9:44am [facility] Work Phone: 1(452) 618-274507-15-2025 Discharge summary [facility] Medical Records Department [address] [place] [address] Emergency Department Summary 03/18/25 MR#: [id number] Acct: [id number] Name: SUGEY WEST Rep #:[id number] : 2000 24 From: Dedrick calhoun DO [...] the paraspinal musculature of the lower lumbar spine- worse on the right compared to the left -recreates her pain-muscles are tense, strength +5/5 Skin: Warm, dry Neuro: Alert, oriented, grossly intact, sensation intact Psych: Cooperative, appropriate mood and affect [facility] Medical History (Updated 03/18/25 @ 12:[address] Dedrick Christina-Ermias, DO) Upper respiratory infection Poor appetite Wears [...] ?Instructions ?Recorded ?Last Taken ?Type blood-glucose sensor (Sumo Logic #1 ea 05/03/24 Unknown History Jazmin 3 [...] bs 10/31/24 Unknown Rx blood sugar diagnostic (SkoovyTouch #10 ea 11/06/24 Unkno wn History Verio test strips) blood-glucose meter (WorldPassKeyuch #1 ea 11/06/24 Unknown H istory Verio Flex Meter) dulaglutide 1.5 mg/0.5 mL 1.5 mg subcut QWEEK 11/06/24 Unknown History subcutaneous pen injector (Trulicity) lancets 30 gauge (Insitu Mobile Delica #100 ea 11/06/24 Unk nown History [...] [facility] States while getting in and out of [...] Days Qty: 9 0RF No Action (DME) Red's All naturale 3 Sensor Device See Rx Instructions .ROUTE [...] can increase confusion, fatigue, falls. Print Language: Estonian Disposition Disposition: Home, Self Care What to do if you have Problems For any increased pain, shortness of breath, bleeding, nausea or vomiting, chestpain, or any unexpected problems, contact your Primary Care Provider. Call [facility] ([phone]) or report tothe closest Emergency Room. Call 911 if necessary. 03/18/25 1230 Cosigner Signature (if applicable): CC: Dr. Eliazar Amos MD ~ Signed [facility]05-19-2025 Telephone encounter Note* Telephone Encounter - Kendrick Fong - 01/20/2025 5:14 PM EDT Images from the original note were not included. Kendrick Red Prior Access Analyst Endocrinology & Metabolism [place] [facility]05-19-2025 Miscellaneous Notes* Telephone Encounter - Kendrick Fong - 01/20/2025 5:14 PM EDT Images from the original note were not included. Kendrick Red Prior Access Analyst Endocrinology & Metabolism [place] * Telephone Encounter - Arlene Carty - 01/16/2025 4:12 PM EDT Patient calling to report that she uploaded her [employer] insurance card through [employer] (available for review in 01/16/25 scanned docs). RTE verified plan is active. Patient states that she does not have a separate plan for prescription coverage. She spoke with evans and they advised her to provide their prior auth ph. [phone] to the ordering practitioner. documented in this encounterBlanch[facility]05-[facility] Telephone encounter Note * Telephone Encounter - Kendrick Fong - 01/20/2025 5:13 PM EDT Initiated PA for semaglutide (OZEMPIC) 1 mg/dose (4 mg/3 mL) through Covermymeds Questions Completed/attached notes Waiting for determination Kendrick Red Prior Access Analyst Endocrinology & Metabolism [place] [facility]05-19-2025 Miscellaneous Notes* Telephone Encounter - Kendrick Fong - 01/20/2025 5:13 PM EDT Initiated PA for semaglutide (OZEMPIC) 1 mg/dose (4 mg/3 mL) through Covermymeds Questions Completed/attached notes Waiting for determination Kendrick Red Prior Access Analyst Endocrinology & Metabolism [place] documented in this encounterBlanchard Valley [facility]05-[facility] Radiology Diagnostic study note [facility] [address] [place] [id number] Chest PA and Lateral MR#: [id number] Acct: [id number] Name: SUGEY WEST Rep #: [id number] : 2000 F 24 From: Yloanda Patel MD PCP: Dr. Eliazar Amos MD Status: R EG ER Study:Chest PA and Lateral Date of Exam: 01/17/25 Exam# [id number] Ordering Dr: Faby Morales EXAM: XR Chest, 2 Views CLINICAL INDICATION: COUGH TECHNIQUE: Frontal and lateral views of the chest. COMPARISON: No relevant prior studies available. FINDINGS: LUNGS AND PLEURAL SPACES: Unremarkable. No consolidation. No pneumothorax. HEART: Unremarkable. No cardiomegaly. MEDIASTINUM: Unremarkable. Normal mediastinal contour. BONES/JOINTS: Unremarkable. No acute fracture. RAD/Chest PA and Lateral IMPRESSION: No acute cardiopulmonary process. Reading Location: [facility] CC: Dr. Eliazar Amos MD; ALEJANDRA Fry ~ Associate Web Developer: Signed [facility]05-16-2025 Hospital Discharge instructions Additional Instructions Thanks for letting us take care of you today. Your chest x-ray showed no signs of pneumonia. I think you have a viral illness causing upper respiratory symptoms. Continue use of your inhaler and I prescribed Tessalon Perles which can help with cough. You can also take mdcw-alg-topezea cough medication. Take Tylenol or ibuprofen as needed for fever or pain. Viral illnesses usually last 7 to 10 days. If you have significantly worsening shortness of breath/asthma symptoms please come back to the ER.[facility] Work Phone: [phone]) 324-551905-15-2025 Telephone encounter Note* Telephone Encounter - Arlene Carty - 01/16/2025 4:12 PM EDT Patient calling to report that she uploaded her [employer] insurance card through Setup (available for review in 01/16/25 scanned docs). RTE verified plan is active. Patient states that she does not have a separate plan for prescription coverage. She spoke with [employer] and they advised her to provide their prior auth ph. [phone] to the ordering practitioner. [facility]05-13-2025 Telephone encounter Note* Telephone Encounter - Paige Muller APRN.CNP - 01/14/2025 8:58 AM EDT Patient's request for medication is as follows Requested Prescriptions Signed Prescriptions Disp Refills semaglutide (OZEMPIC) 1 mg/dose (4 mg/3 mL) pen 9 mL 3 Sig: Inject 1 mg subcutaneously one time a week. Authorizing Provider: PAIGE MULLER Order entered - please phone pharmacy and notify patient. Paige Muller APRN.CNP [facility]05-13-2025 Miscellaneous Notes* Telephone Encounter - Paige Muller APRN.CNP - 01/14/2025 8:58 AM EDT Patient's request for medication is as follows Requested Prescriptions Signed Prescriptions Disp Refills semaglutide (OZEMPIC) 1 mg/dose (4 mg/3 mL) pen 9 mL 3 Sig: Inject 1 mg subcutaneously one time a week. Authorizing Provider: PAIGE MULLER Order entered - please phone pharmacy and notify patient. Paige Muller APRN.CNP * Telephone Encounter - Cynthia Redding LPN - 01/13/2025 3:50 PM EDT Patient called. The MOUNJARO is not covered and would like Ozempic order placed to [facility]. Cynthia Redding LPN * Telephone Encounter - Kendrick Fong - 01/02/2025 10:31 AM EDT Images from the original note were not included. Initiated PA for tirzepatide (MOUNJARO) 5 mg/0.5 mL through Covermymeds Waiting on Questions Questions Completed Waiting for determination Kendrick Red Prior Access Analyst Endocrinology & Metabolism [place] documented in this encounterBlanchard [facility]05-[facility] Telephone encounter Note * Telephone Encounter - Cynthia Redding LPN - 01/13/2025 3:50 PM EDT Patient called. The MOUNJARO is not covered and would like Ozempic order placed to [facility] Son. Cynthia Redding LPN [facility]05-01-2025 Telephone encounter Note* Telephone Encounter - Kendrick Fong - 01/02/2025 10:31 AM EDT Images from the original note were not included. Initiated PA for tirzepatide (MOUNJARO) 5 mg/0.5 mL through Covermymeds Waiting on Questions Questions Completed Waiting for determination Kendrick Red Prior Access Analyst Endocrinology & Metabolism [place] [facility]04-30-2025 History of Present illness Narrative* Paige Muller APRN.DATA INTEGRATION DEVELOPER - 01/01/2025 8:45 AM EDT Images from the original note [...] 30 gram(s), 0 Refill(s), [facility]acy: [facility] #[id number], 177.5, cm, 03/13/23 10:35:00 EDT, Height, 117.5 SUMAtriptan (IMITREX) 50 mg tablet TAKE 1 TABLET BY MOUTH EVERY 2 HOURS NEEDED FOR HEADACHE. MAXDOSE OF 2 TABLETS A DAY cyclobenzaprine (FLEXERIL) 10 mg tablet Take 10 mg by mouth three times daily. prn Insulin Sanford, Disposable, (BD ULTRAFINE III MINI PEN) 31 [...] A1C of 8% + CONSULT TO ENDO BALL MACHINE OPERATOR Will do labs on way out CONT [...] RATIO, URINE, HEMOGLOBIN A1C Paige Muller CNP * Mónica Casiano MA - 01/01/2025 8:31 AM EDT Images from the original note were not included. documented in this encounterBlanchard Valley [facility]04-30-2025 NoteHNO ID: [id number] Author: PAIGE MULLER APRN.EVA Service: ? Author Type: Nurse Practitioner Type: Progress Notes Filed: 01/01/2025 09:01 Note Text: OFFICE VISIT PROGRESS NOTE CC Sugey West is a 23 year old who presents today for blood sugar review, DM med dose review, adjust. HPI Diagnosed with pre diabetes age 16 Dx with DM2 2020 Last endocrine OV 01/24/2024 Some elements copied [...] BID, # 30 gram(s), 0 Refill(s), Pharmacy: [facility] #[id number], 177.5, cm, 03/13/23 10:35:00 EDT, Height, 117.5 SUMAtriptan (IMITREX) 50 mg tablet TA (more content not included)...[facility]04-30-2025 NoteHNO ID: [id number] Author: MÓNICA CASIANO MA Service: ? Author Type: Manager Psychiatry Type: Progress Notes Filed: 01/01/2025 09:01 Note Text:[facility]03-06-2025 Telephone encounter Note* Telephone Encounter - Madison Carlisle MA - 11/07/2024 8:56 AM EST Left patient message to let her know she was scheduled at the [place] office,and that we are 2 1/2 hours away I said she could reschedule with the [place] office.I asked that she call and confirm appointment or message the office. Madison Carlisle MA [facility]03-06-2025 Miscellaneous Notes* Telephone Encounter - Madison Carlisle MA - 11/07/2024 8:56 AM EST Left patient message to let her know she was scheduled at the [place] office,and that we are 2 1/2 hours away I said she could reschedule with the [place] office.I asked that she call and confirm appointment or message the office. Madison Carlisle MA documented in this encounterBlanchard Valley [facility]03-[facility] Evaluation note* Diagnosis Onset Date Resolution Status Admit Date Breast hypertrophy acute November 06, 2024 3:05pm Breast ptosis acute November 06, 2024 3:05pm Current every day vaping acute November 06, 2024 3:05pm Severe obesity (BMI >= 40) acute November 06, 2024 3:05pm Chronic back pain chronic November 062024 3:05pm Breast hypertrophy acute November 15, 2024 10:07am Upper respiratory infection acute November 15, 2024 10:07am Essential hypertension chronic [facility] 2024 10:07am Migraine chronic November 15 10:07am Type 2 diabetes mellitus chronic November 15, 2024 10:07am [facility] Work Phone: 1(264) 813-233602-24-2025 Telephone encounter Note* Telephone Encounter - Mónica [...] as she lost hers. Mónica Casiano MA [facility]02-24-2025 Miscellaneous Notes* Telephone Encounter - Mónica [...] hers. Mónica Casiano MA documented in this encounterBlanchard Valley Health System [facility]02-[facility] Telephone encounter Note * Telephone Encounter - Joana Silva MA - 10/10/2024 12:57 PM EST Requester: Pharmacy Patients last Endocrinology visit occurred 01/24/2024. Follow-up evaluation has been established Upcoming Endocrinology Appointments - Next 365 Days Visit Type Date Time Department EST FRANNY PATIENT 11/07/2024 1:15 PM [facility] . Requested Prescriptions Pending Prescriptions Disp Refills TRULICITY 3 mg/0.5 mL pen injector [Pharmacy Med Name: TRULICITY 3 MG/0.5 ML PEN] Sig: INJECT 3 MG SUBCUTANEOUSLY ONE TIME PER WEEK Patient needs scheduled appointment No Joana Silva MA [facility]02-06-2025 Miscellaneous Notes* Telephone Encounter - Joana Silva MA - 10/10/2024 12:57 PM EST Requester: Pharmacy Patients last Endocrinology visit occurred 01/24/2024. Follow-up evaluation has been established Upcoming Endocrinology Appointments - Next 365 Days Visit Type Date Time Department EST FRANNY PATIENT 11/07/2024 1:15 PM [facility] . Requested Prescriptions Pending Prescriptions Disp Refills TRULICITY 3 mg/0.5 mL pen injector [Pharmacy Med Name: TRULICITY 3 MG/0.5 ML PEN] Sig: INJECT 3 MG SUBCUTANEOUSLY ONE TIME PER WEEK Patient needs scheduled appointment No Joana Silva MA documented in this encounterBlanchard Valley [facility]01-21-[facility]25 Telephone encounter Note * Telephone Encounter - Mónica Casiano MA - 09/24/2024 3:36 PM EST Cover my meds PA mancia [id number] started. Mónica Casiano MA [facility]01-21-2025 Miscellaneous Notes* Telephone Encounter - Mónica Casiano MA - 09/24/2024 3:36 PM EST Cover my meds PA mancia [id number] started. Mónica Casiano MA documented in this encounterBlanchard Valley Health System [facility]01-20-2025 Telephone encounter Note * Telephone Encounter [...] needs scheduled appointment Yes Joana Silva MA [facility]01-20-2025 Miscellaneous Notes* Telephone Encounter - Joana [...] Yes Joana Silva MA documented in this encounterBlanchard Valley [facility]01[facility] Hospital Discharge instructions* Discharge Instructions* Mona Collazo DO - 09/07/2024 10:06 PM EST Take Motrin for symptom management. Finish full course of antibiotics. Follow-up with PCP or returnto the ED if no signs of improvement or if worsening shortness of breath. * Attachments The following attachments cannot be sent through Care Everywhere. * Sore Throat in Adults (Estonian) * Ear Infections (Otitis Media) in Adults Discharge Instructions (Estonian) documented in this [facility]01-04-2025 Emergency department Note* Mona Collazo DO - [...] HISTORY SCREENINGS PHYSICAL EXAM ED Triage Vitals [09/07/242140] Temp Heart Rate Resp BP 36.6 C [...] [BM] Mona Collazo DO Diagnoses as of 09/07/24 2206 URI with cough and congestion Left otitis media, unspecified otitis media type Pharyngitis, unspecified etiology Medications cefuroxime (Ceftin) tablet 500 mg (has no administration in time range) REVAL: CRITICAL CARE TIME FINAL IMPRESSION 1. URI with cough and congestion 2. Left otitis media, unspecified otitis media type 3. Pharyngitis, unspecified etiology DISPOSITION Discharge 09/07/2024 10:03:59 PM PATIENT REFERRED TO: [facility] EMERGENCY DEPT [address] [place] [phone] As needed, If symptoms worsen DISCHARGE [...] Emergency Medicine Provider Mona Collazo DO 09/07/24 7947 documented in this [facility]01-04-2025 Physician Emergency department Note* Mona Collazo DO [...] [BM] Mona Collazo DO Diagnoses as of 09/07/242205 URI with cough and congestion Left otitis media, unspecified otitis media type Pharyngitis, unspecified etiology Medications cefuroxime (Ceftin) tablet 500 mg (has no administration in time range) REVAL: CRITICAL CARE TIME FINAL IMPRESSION 1. URI with cough and congestion 2. Left otitis media, unspecified otitis media type 3. Pharyngitis, unspecified etiology DISPOSITION Discharge 09/07/2024 10:03:59 PM PATIENT REFERRED TO: [facility] [address] [place] [id number] As needed, If symptoms worsen DISCHARGE [...] Emergency Medicine Provider Mona Collazo DO 09/07/24 [id number] History of Present illness Narrative* Katie Brizuela MD - 07/25/2024 11:20 AM EST [facility] PATIENT NAME: Sugey [place] [...] Acute upper respiratory infection Other orders - lwuwmupjhxsjfxl-jixonycncwagesq-cckzjlpzkozqtswq 30-2-10 MG/5ML Syrup; Take 5- 10 mL [...] visit to the ER. documented in this [facility] [employer] Work Phone: [phone] Instructions* Patient Instructions* Katie Brizuela MD - [...] visit to the ER. documented in this encounterMEKYRICA [employer] Work Phone: [phone] Telephone encounter Note* Telephone Encounter - Mónica [...] updated pharmacy on file. Mónica Casiano MA [facility]10-23-2024 Miscellaneous Notes* Telephone Encounter - Mónica [...] take the 4.5 mg? [facility] Telephone encounter Note * Telephone Encounter - Paige Muller APRN.CNP - 06/26/2024 2:19 PM EDT Message states patient has moved. Which pharmacy does the TRULICITY go now? [facility]10-23-2024 Telephone encounter Note* Telephone Encounter - [...] is unable to take the 4.5 mg? [facility]09-20-2024 Telephone encounter Note* Telephone Encounter - Mignon Cohen RN - 05/24/2024 3:09 PM EDT Sugey called, verified name and date of . She is having problems with two items. 1) She needs a new prescription sent to [facility] in [place], [place], for Jazmin 3 Plus sensors, as [...] didn't work for me. Mignon Cohen RN [facility]09-20-2024 Miscellaneous Notes* Telephone Encounter - Mignon Cohen RN - 05/24/2024 3:09 PM EDT Sugey called, verified name and date of . She is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 Relationship Specialty Start Date End Date Eliazar Amos MD [address] [place] [address] PCP - General Internal Medicine 04/05/23 Team [...] End: January 17, 2025 Dr. Fortunato Medina , Emergency Provider Active Start: January 17, 2025 [...] March 20, 2025 End: March 20, 2025 Team Status: Inactive Member Role/Relationship Status Dates Dr. Eliazar Amos MD Primary Care Provider Active Start: March 18, 2025 End: March 18, 2025 Dr. Dedrick Lagos DO Attending Provider Activ e Start: March 18, 2025 End: March 18, 2025 Dr. Dedrick Lagos DO Emergency Provider Activ e Start: March 18, 2025 End: March 18, 2025 Team Status: Inactive Member Role/Relationship Status Dates Dr. Eliazar Amos MD Primary Care Provider Active Start: April 08, 2025 End: April 08, 2025 Dr. Timo Harris DO Emergency Provider Active Start: April 08, 2025 End: April 08, 2025 Team Status: Inactive Member Role/Relationship Status Dates Dr. Eliazar Amos MD Primary Care Provider Active Start: April 08, 2025 End: April 08, 2025 Dr. Timo Harris DO Attending Provider Active Start: April 08, 2025 End: April 08, 2025 Dr. Timo Harris DO Emergency Provider Active Start: April 08, 2025 End: April 08, 2025 Team Status: Inactive Member Role/Relationship Status Dates Dr. Eliazar Amos MD Primary Care Provider Active Start: May 02, 2025 End: May 02, 2025 Dr. Eliazar Amos MD Attending Provider Active Start: May 02, 2025 End: May 02, 2025 Dr. 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 Eliazar Amos MD Primary Care Provider Active Start: May 16, 2025 End: May 16, 2025 Dr. Shlomo Santizo DO Emergency Provider Active Start: May 16, 2025 End: May 16, 2025 Care Team (unrecognized sect ion and content) Care Team Personnel Name: ELIAZAR AMOS MD Member Role: Primary Care Physician Address: Address: [address] [place] [address] [address] Care Team Related Persons Name: DELORES WEST Care Team Personnel Name: ELIAZAR AMOS MD Member Role: Primary Care Physician Address: Address: [address] [place] [address] Name: DEAN LYON MD Position: ED Physician Member Role: ED Physician Address: Address: [address] [place] [address] Care Team Related Persons Name: DELORES WEST Source Comments (unrecognize d section and content) In the event this informatio n is protected by the Federal Confidentiality of Alcohol and Drug Abuse Patient Records regulations: The Federal rules restrict any use of the information to criminally investigate or prosecute any alcohol or drug abuse patient.[facility] the event this information is protected by the Federal Confidentiality of Alcohol and Drug Abuse Patient Records regulations: The Federal rules restrict any use of the information to criminally investigate or prosecute any alcohol or drug abuse patient.[facility] the event this information is protected by the Federal Confidentiality of Alcohol and Drug Abuse Patient Records regulations: The Federal rules restrict any use of the information to criminally investigate or prosecute any alcohol or drug abuse patient.[facility] the event this information is protected by the Federal Confidentiality of Alcohol and Drug Abuse Patient Records regulations: The Federal rules restrict any use of the information to criminally investigate or prosecute any alcohol or drug abuse patient.[facility] the event this information is protected by the Federal Confidentiality of Alcohol and Drug Abuse Patient Records regulations: The Federal rules restrict any use of the information to criminally investigate or prosecute any alcohol or drug abuse patient.[facility] the event this information is protected by the Federal Confidentiality of Alcohol and Drug Abuse Patient Records regulations: The Federal rules restrict any use of the information to criminally investigate or prosecute any alcohol or drug abuse patient.[facility] the event this information is protected by the Federal Confidentiality of Alcohol and Drug Abuse Patient Records regulations: The Federal rules restrict any use of the information to criminally investigate or prosecute any alcohol or drug abuse patient.[facility] the event this information is protected by the Federal Confidentiality of Alcohol and Drug Abuse Patient Records regulations: The Federal rules restrict any use of the information to criminally investigate or prosecute any alcohol or drug abuse patient.[facility] the event this information is protected by the Federal Confidentiality of Alcohol and Drug Abuse Patient Records regulations: The Federal rules restrict any use of the information to criminally investigate or prosecute any alcohol or drug abuse patient.[facility] the event this information is protected by the Federal Confidentiality of Alcohol and Drug Abuse Patient Records regulations: The Federal rules restrict any use of the information to criminally investigate or prosecute any alcohol or drug abuse patient.[facility] the event this information is protected by the Federal Confidentiality of Alcohol and Drug Abuse Patient Records regulations: The Federal rules restrict any use of the information to criminally investigate or prosecute any alcohol or drug abuse patient.[facility] the event this information is protected by the Federal Confidentiality of Alcohol and Drug Abuse Patient Records regulations: The Federal rules restrict any use of the information to criminally investigate or prosecute any alcohol or drug abuse patient.[facility] the event this information is protected by the Federal Confidentiality of Alcohol and Drug Abuse Patient Records regulations: The Federal rules restrict any use of the information to criminally investigate or prosecute any alcohol or drug abuse patient.[facility] the event this information is protected by the Federal Confidentiality of Alcohol and Drug Abuse Patient Records regulations: The Federal rules restrict any use of the information to criminally investigate or prosecute any alcohol or drug abuse patient.[facility] the event this information is protected by the Federal Confidentiality of Alcohol and Drug Abuse Patient Records regulations: The Federal rules restrict any use of the information to criminally investigate or prosecute any alcohol or drug abuse patient.[facility] the event this information is protected by the Federal Confidentiality of Alcohol and Drug Abuse Patient Records regulations: The Federal rules restrict any use of the information to criminally investigate or prosecute any alcohol or drug abuse patient.[facility] the event this information is protected by the Federal Confidentiality of Alcohol and Drug Abuse Patient Records regulations: The Federal rules restrict any use of the information to criminally investigate or prosecute any alcohol or drug abuse patient.[facility] the event this information is protected by the Federal Confidentiality of Alcohol and Drug Abuse Patient Records regulations: The Federal rules restrict any use of the information to criminally investigate or prosecute any alcohol or drug abuse patient.[facility]In the event this information is protected by the Federal Confidentiality of Alcohol and Drug Abuse Patient Records regulations: The Federal rules restrict any use of the information to criminally investigate or prosecute any alcohol or drug abuse patient.[facility]In the event this information is protected by the Federal Confidentiality of Alcohol and Drug Abuse Patient Records regulations: The Federal rules restrict any use of the information to criminally investigate or prosecute any alcohol or drug abuse patient.[facility]In the event this information is protected by the Federal Confidentiality of Alcohol and Drug Abuse Patient Records regulations: The Federal rules restrict any use of the information to criminally investigate or prosecute any alcohol or drug abuse patient.[facility]In the event this information is protected by the Federal Confidentiality of Alcohol and Drug Abuse Patient Records regulations: The Federal rules restrict any use of the information to criminally investigate or prosecute any alcohol or drug abuse patient.[facility]In the event this information is protected by the Federal Confidentiality of Alcohol and Drug Abuse Patient Records regulations: The Federal rules restrict any use of the information to criminally investigate or prosecute any alcohol or drug abuse patient.[facility]In the event this information is protected by the Federal Confidentiality of Alcohol and Drug Abuse Patient Records regulations: The Federal rules restrict any use of the information to criminally investigate or prosecute any alcohol or drug abuse patient.[facility]In the event this information is protected by the Federal Confidentiality of Alcohol and Drug Abuse Patient Records regulations: The Federal rules restrict any use of the information to criminally investigate or prosecute any alcohol or drug abuse patient.[facility]In the event this information is protected by the Federal Confidentiality of Alcohol and Drug Abuse Patient Records regulations: The Federal rules restrict any use of the information to criminally investigate or prosecute any alcohol or drug abuse patient.[facility]In the event this information is protected by the Federal Confidentiality of Alcohol and Drug Abuse Patient Records regulations: The Federal rules restrict any use of the information to criminally investigate or prosecute any alcohol or drug abuse patient.[facility]In the event this information is protected by the Federal Confidentiality of Alcohol and Drug Abuse Patient Records regulations: The Federal rules restrict any use of the information to criminally investigate or prosecute any alcohol or drug abuse patient.[facility]In the event this information is protected by the Federal Confidentiality of Alcohol and Drug Abuse Patient Records regulations: The Federal rules restrict any use of the information to criminally investigate or prosecute any alcohol or drug abuse patient.[facility]In the event this information is protected by the Federal Confidentiality of Alcohol and Drug Abuse Patient Records regulations: The Federal rules restrict any use of the information to criminally investigate or prosecute any alcohol or drug abuse patient.[facility] Reason for Visit (unrecogniz ed section [...] TISSUE HEAD & NECK REAL TIME IMGE JAYASHREEM Paige Muller, LACTATION SPECIALIST.DATA INTEGRATION DEVELOPER [address] [place] [address] Us Imaging [id number] Referral ID Status Reason Start Date Expiration Date V isits Requested Visits Authorized [id number] Closed Auto-Generate d Referral 04/05/2023 05/04/2024 1 1 Reason Comments type 2 diabetes Reporting low sugar events Reason Onset Date Comments Refill Request 01/16/2024 Reason Comments Prior Authorization Mounjaro Please rese nd PA in 3 days, to [facility] through [employer]. Not available yetDilamar Reason Comments Medication Problem Results Prior Auth Appeal Mounjaro Reason Onset Date Comments Refill Request 02/20/2024 [...] BE BASED ON THE PRIMARY CLINICAL RECORDS. [employer] provides no warranty or guarantee of the accuracy or completeness of information in this document.
--- NOTE | 2025-05-30 01:25 | RAD_ITS ---
PROCEDURE: CHEST PA AND LATERAL 05/29/2025 REASON FOR EXAM: COUGH TECHNIQUE: Procedure Code: RADCXR Modality: DX Procedure: CHEST PA AND LATERAL COMPARISON: 01/17/2025 FINDINGS: Hardware: None. Heart: The heart size is normal. Mediastinum: The mediastinal contour is unremarkable. Lungs: The lungs are clear. Bones: The bones are unremarkable. RAD/Chest PA and Lateral IMPRESSION: NO ACUTE FINDINGS. Reading [facility]
--- NOTE | 2025-05-30 02:00 | EDS_ITS ---
HPI History of Present Illness Chief Complaint: Cold Sx Informant: patient Narrative Narrative: Patient is a 24-year-old female with past medical history of hypertension asthma anxiety and depression. She states she has had 2 to 3 days of increased nasal congestion sore throat cough. She reports she has noticed bilateral ear pain worse on the left. She states that she feels like her symptoms are worsening and has concern that this may be a bacterial infection requiring antibiotics and secondary to this comes in for evaluation [facility] Medical History Acute back pain Upper respiratory infection Poor appetite Wears glasses Depression Anxiety Diabetes Low iron Easy bruising Injury of head and neck Migraine headache Dietary restriction Vapes nicotine containing substance Asthma Shortness of breath on exertion History of pain when walking History of edema Cardiology follow-up encounter Hypertension Gastroenteritis Screening for thyroid disorder Dermatitis Hemoptysis Cough Cubital tunnel syndrome on left Ulnar neuropathy Preoperative evaluation to rule out surgical contraindication Migraine Type 2 diabetes mellitus Post concussion syndrome Hypersomnia Left shoulder pain Thyromegaly Thyromegaly Vision problems High cholesterol Chronic back pain Right knee pain Generalized anxiety disorder with panic attacks Generalized anxiety disorder Obesity (BMI 30-39.9) Paresthesia Low back pain Shortness of breath Left ventricular noncompaction Pneumonia Asthma Essential hypertension Insomnia History of migraine Diabetes Depression Home Medications ?Medication ?Instructions ?Recorded ?Last Taken ?Type blood-glucose sensor (PrestaShopStyle #1 ea 05/03/24 Unknown History Gualberto 3 Sensor device) triamcinolone acetonide 0.1 % 1 applic topical BID PRN rash #30 05/03/24 Unknown Rx topical ointment grams sumatriptan succinate 25 mg tablet See Rx Instructions PO .COMPLEX 07/19/24 Unknown Rx (Imitrex) #14 tabs hydroxyzine HCl 25 mg tablet 25 mg PO BID PRN anxiety #90 tabs 08/21/24 Unknown Rx blood sugar diagnostic (TripLingoTouch #10 ea 11/06/24 Unkno wn History Verio test strips) blood-glucose meter (TripLingoTouch #1 ea 11/06/24 Unknown H istory Verio Flex Meter) lancets 30 gauge (OneTouch Delica #100 ea 11/06/24 Unk nown History Plus Lancet) cholecalciferol (vitamin D3) 125 125 mcg PO QDAY #90 t abs 11/15/24 Unknown Rx mcg (5,000 unit) tablet cyanocobalamin (vitamin B-12) 1,000 mcg PO QDAY #90 ta bs 11/15/24 Unknown Rx 1,000 mcg tablet famotidine 40 mg tablet 40 mg PO QDAY #90 tabs 11/15 Unknown Rx losartan 25 mg tablet 25 mg PO QDAY #30 tabs 11/15 Unknown Rx albuterol sulfate 90 mcg/actuation 2 puff inhalation Q 6H PRN 01/03/25 Unknown Rx aerosol inhaler Shortness Of Breath Or Wheez ing #8.5 grams benzonatate 200 mg capsule 200 mg PO BID PRN cough 7 d ays #14 01/17/25 Unknown Rx caps cyclobenzaprine 5 mg tablet 5 mg PO TID PRN muscle spa sm 3 03/18/25 Unknown Rx days #9 tabs azelastine 137 mcg (0.1 %) nasal 2 spray intranasal BI D #30 mL 05/30/25 Unknown Rx spray codeine 10 mg-guaifenesin 100 mg/5 10 ml PO 4X/DAY PRN cough 7 days 05/30/25 Unknown Rx mL oral liquid #280 mL prednisone 20 mg tablet 40 mg (2 x 20 mg) PO DAILY 5 days 05/30/25 Unknown Rx #10 tabs Allergy/AdvReac Type Severity Reaction Status Date / Time vancomycin Allergy Mild Hives Verified 05/30/25 00:04 amoxicillin Allergy Unknown unknown Verified 05/30/25 00:04 azithromycin (From Zithromax Allergy Unknown unknown Verified 05/30/25 00:04 Z-Clyde) Penicillins Allergy Unknown unknown Verified 05/30/25 00:04 Family History Father No problems noted. Grandfather Diabetes Grandmother Hypertension Aunt Hypertension Other Anxiety Arthritis Asthma Depression Osteoporosis Respiratory disease Severe allergy Surgical History History of nasal cauterization History of tonsillectomy and adenoidectomy Hx of myringotomy History of nasal cauterization Social History housing: house Smoking Status: Current every day smoker tobacco type: e-cigarettes Tobacco: How many years used: 4 how long ago did patient quit smokin09/04/2020- pt vapes second hand exposure: No alcohol intake: current alcohol intake frequency: a few times a month Alcohol type: hard liquor substance use type: does not use caffeine: No what type of physical activity do you participate in: walking frequency: daily seatbelt use: sometimes additional social history: DOES NOT TAKE ASPIRIN DOES TAKE IBUPROFEN NEEDED pt admits to vaping, denies marijuana use, denies edibles ROS ROS ED Constitutional Constitutional ED: Reports other Details: Positive fatigue ; Denies chills or fever(s) ENT ENT ED: Reports ear pain, rhinorrhea and sore throat Cardiovascular Cardiovascular: Denies chest pain Respiratory/Chest Respiratory/Chest: Reports cough; Denies dyspnea Gastrointestinal Gastrointestinal: Denies abdominal pain, diarrhea, nausea or vomiting Genitourinary Genitourinary ED: Denies dysuria Musculoskeletal Musculoskeletal: Reports myalgias Integumentary Denies rash Neurologic Neurologic: Reports headache(s) Hematologic/Lymphatic Hematologic/Lymphatic: Denies easy bleeding or easy bruising Allergic/Immunologic Allergic/Immunologic ED: Denies mouth swelling or tongue swelling EXAM Physical Exam Const Vital Signs: 05/30/25 00:04 05/30/25 00:47 05/30/25 00:47 Temperature 98.2 F Temperature Source Temporal Pulse Rate 53 L 62 Respiratory Rate 18 16 Respiratory Effort Normal Non-Labored Respiratory Pattern Normal Blood Pressure 160/104 H 151/83 H Blood Pressure Mean 122 105 Pulse Ox 99 99 Oxygen Delivery Method Room Air Room Air Positive well nourished, well developed and obese General Appearance ED: well developed; Negative for pallor Nutritional Appearance: obese HEENT HEENT Narrative: Normocephalic atraumatic Bilateral TMs are retracted but show no secondary findings to suggest infection Nasal mucosa is hyperemic and boggy There is cobblestoning the posterior pharynx consistent with sinus drainage without airway edema or compromise; no secondary findings to suggest infection Eyes PERRL and EOMs intact bilaterally Neck supple Neck Narrative: No nuchal rigidity or meningeal signs Resp normal respiratory effort Resp Narrative: Breath sounds are slightly diminished throughout with faint expiratory wheeze in the bilateral lower lobes but no signs of respiratory distress Cardio regular rate and regular rhythm Extremity normal to inspection Neuro oriented x3, CN's II-XII intact bilaterally and no sensory deficits noted Sensorium / Orientation: alert Motor Exam: strength 5/5 throughout Psych mental status grossly normal Skin no rashes or lesions noted General Skin Exam: Negative for jaundice or pallor MDM MDM MDM Narrative Medical decision making narrative: Patient is a 24-year-old female who reports congestion drainage cough and ear pain for the past few days. Symptoms are most consistent with viral infection such as COVID influenza or RSV. We discussed obtaining a viral swab but as she is not have hypoxia or respiratory distress it would not change treatment options and therefore there is no need to obtain this. With concern she may have a potential pneumonia and x-ray was ordered. X-ray revealed no acute findings. History exam and workup at this time is most consistent with a viral URI. As she does not have signs of respiratory distress or hypoxia there is no need for further intervention and should be given symptomatic care and is otherwise safe for discharge. History & Record Review Discussion w/independent historian: Patient Radiography Diagnostic Testing: Clinical Impression(s) from Imaging Studies Chest X-Ray 05/30/25 01:25 IMPRESSION: NO ACUTE FINDINGS. Reading Location: [facility] Chest x-ray as interpreted by the emergency medicine physician reveals no acute infiltrate pneumothorax or pleural effusion Discharge Plan Triage Chief Complaint: Cold Sx ED Provider: Elroy Jain Dx/Rx/DC Orders Clinical Impression: Viral upper respiratory tract infection with cough, Depression, Generalized anxiety disorder, Essential hypertension, Asthma Instructions: ED URI, Viral, No Abx (Adult) Prescriptions: New azelastine 137 mcg (0.1 %) spray,non-aerosol 2 spray intranasal BID Qty: 30 0RF Rx Instructions: administer into each nostril codeine-guaifenesin 10-100 mg/5 mL liquid 10 ml PO 4X/DAY PRN (Reason: cough) 7 Days Qty: 280 0RF prednisone 20 mg tablet 40 mg PO DAILY 5 Days Qty: 10 0RF No Action (DME) FreeRoadtrippersyle Gualberto 3 Sensor Device See Rx Instructions .ROUTE .MEDSUPPLY Qty: 1 Patient Comments: [NO ORIGINAL SIG] Rx Instructions: As directed triamcinolone acetonide 0.1 % ointment 1 applic topical BID PRN (Reason: rash) Qty: 30 1RF sumatriptan succinate [Imitrex] 25 mg tablet See Rx Instructions PO .COMPLEX Qty: 14 2RF Rx Instructions: take 1 tab at onset of headache; if no relief may repeat 1 tab after at least 2 hrs; max = 4 tabs/24 hr PO losartan 25 mg tablet 25 mg PO QDAY Qty: 30 3RF famotidine 40 mg tablet 40 mg PO QDAY Qty: 90 1RF cholecalciferol (vitamin D3) 125 mcg (5,000 unit) tablet 125 mcg PO QDAY Qty: 90 1RF cyanocobalamin (vitamin B-12) 1,000 mcg tablet 1,000 mcg PO QDAY Qty: 90 1RF (DME) blood-glucose meter [OneTouch Verio Flex meter] Misc See Rx Instructions .ROUTE .MEDSUPPLY Qty: 1 Rx Instructions: As directed (DME) OneTouch Verio test strips Strip See Rx Instructions .ROUTE BID Qty: 10 Rx Instructions: As directed (DME) lancets [OneTouch Delica Plus Lancet] 30 gauge misc See Rx Instructions .ROUTE BID Qty: 100 Rx Instructions: As directed benzonatate 200 mg capsule 200 mg PO BID PRN (Reason: cough) 7 Days Qty: 14 0RF cyclobenzaprine 5 mg tablet 5 mg PO TID PRN (Reason: muscle spasm) 3 Days Qty: 9 0RF hydroxyzine HCl 25 mg tablet 25 mg PO BID PRN (Reason: anxiety) Qty: 90 1RF albuterol sulfate 90 mcg/actuation HFA aerosol inhaler 2 puff INHALATION Q6H PRN (Reason: Shortness Of Breath Or Wheezing) Qty: 8.5 1RF Stand Alone Forms: ED Work / School Excuse Primary Care Provider: Delma Amos Referrals: Delma Amos MD [Primary Care Provider, Internal Medicine] Activity Restrictions/Additional Instructions: Your history and exam is consistent with a viral upper respiratory tract infection. This will take on average 18 to 21 days to resolve. Take the prescribed medication as directed to help control symptoms and return to the ER should you have any further concerns Print Language: [place] Citizen Disposition Disposition: Home, Self Care Discharge Date/Time: 05/30/25 02:12
[2025-05-30 02:05] VITALS: BP 126/78; PULSE 66; RESP 18; TEMP 36.8; O2SAT 95
== END 2025-05-30 02:12 | disposition home or self-care (01) ==
PROVIDERS: Emergency Provider Emergency Medicine; PCP Internal Medicine; Visit Provider Emergency Medicine
DX: J06.9 Acute upper respiratory infection, unspecified (principal); E11.9 Type 2 diabetes mellitus without complications; I10 Essential (primary) hypertension; F41.1 Generalized anxiety disorder; F32.A Depression, unspecified; M54.9 Dorsalgia, unspecified; G89.29 Other chronic pain; J45.909 Unspecified asthma, uncomplicated; G43.909 Migraine, unspecified, not intractable, without status migrainosus; F17.290 Nicotine dependence, other tobacco product, uncomplicated; Z79.899 Other long term (current) drug therapy
CPT/HCPCS: 71046; 99282

== ENCOUNTER 2025-06-29 23:42 | Emergency (ER) | payer MEDICAID, SELFPAY ==
[2025-06-29 23:43] VITALS: BP 156/94; PULSE 89; RESP 18; TEMP 36.6; O2SAT 97; BMI 42.0
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
--- NOTE | 2025-06-30 00:20 | CT_ITS ---
PROCEDURE: BRAIN/HEAD WITHOUT CONTRAST 06/29/2025 REASON FOR EXAM: TRAUMA TECHNIQUE: Procedure Code: CTBR Modality: CT Procedure: BRAIN/HEAD WITHOUT CONTRAST Coronal and Sagittal reconstruction series were provided. One or more dose reduction techniques were used (e.g., Automated exposure control, adjustment of the mA and/or kV according to patient size, use of iterative reconstruction technique. RADIATION DOSE SUMMARY: DLP: 830 mGycm COMPARISON: None FINDINGS: There is no acute infarct, intracranial hemorrhage, or mass effect. There is no hydrocephalus or significant midline shift. No acute, depressed calvarial fractures. No large scalp hematomas. The paranasal sinuses are clear. CT/Brain/Head without Contrast IMPRESSION: No acute intracranial process. Reading Location: [id number]
--- NOTE | 2025-06-30 00:25 | RAD_ITS ---
PROCEDURE: CERV SPINE 2 OR 3 VIEWS 06/29/2025 REASON FOR EXAM: PAIN, TRAUMA TECHNIQUE: Procedure Code: RADSPCL Modality: DX Procedure: CERV SPINE 2 OR 3 VIEWS FINDINGS: No acute cervical fracture or subluxations. No significant degenerative changes No acute soft tissue abnormalities. No radiographic foreign body. RAD/Cerv Spine 2 or 3 Views IMPRESSION: No acute cervical fracture or subluxations. Reading Location: [id number]
--- OUTSIDE RECORDS SUMMARY | 2025-06-30 00:38 | XMS RPT_ITS | CCD ---
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 ulnar nerve] 05-11-2023 Chronic Other nervous system disorders (18 sources) H/O: migraine; Translations: [Personal history of other diseases of the nervous system and sense organs] 11-04-2020 Episodic Other nervous system disorders (18 sources) Paresthesia; Translations: [Paresthesia of skin] 05-20-2021 [...] shoulder region] Episodic Other non-traumatic joint disorders (15 sources) Pain in left shoulder; Translations: [Pain in joint, shoulder region] Episodic Other non-traumatic joint disorders (1 source) Pain in unspecified knee; Translations: [Pain of joint of knee] Onset: 12-09-2022 Episodic Other nutritional; endocrine; and metabolic disorders (18 sources) Body mass index 30+ - obesity; Translations: [Obesity, unspecified] 05-20-2021 Chronic Other nutritional; endocrine; and metabolic disorders (2 sources) Obesity, unspecified; Translations: [Obesity, unspecified] 10-12-2023 Chronic Other nutritional; endocrine; and metabolic disorders (13 sources) Body mass index 40+ - severely obese; Translations: [Morbid (severe) obesity due to excess calories] Onset: 05-07-2025 11-06-2024 Chronic Other nutritional; endocrine; and metabolic disorders (8 sources) Decrease in appetite; Translations: [Anorexia] 05-03-2024 Episodic Other screening for suspected conditions (not mental disorders or infectious disease) (20 sources) Pseudohyponatremia; Translations: [Other specified abnormal findings of blood chemistry] Onset: 03-13-2023 06-17-2021 Episodic Other upper respiratory disease (9 sources) Epistaxis 10-29-2015 Episodic Other upper respiratory infections (18 sources) Sinusitis; Translations: [Chronic sinusitis, unspecified] 06-25-2021 Chronic Otitis media and related conditions (4 sources) Otitis media of left ear; Translations: [Otitis media, unspecified, left ear] Onset: 09-07-2024 09-07-2024 Episodic Maia-; endo-; and myocarditis; cardiomyopathy (except that caused by tuberculosis or sexually transmitted disease) (9 sources) 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 Pneumonia (except that caused by tuberculosis or sexually transmitted disease) (18 sources) Pneumonia; Translations: [Pneumonia, unspecified organism] 10-30-2021 Episodic Residual codes; unclassified (16 sources) Hypersomnia; Translations: [Hypersomnia, unspecified] 12-20-2022 Chronic Residual codes; unclassified (5 sources) Hypersomnia, unspecified; Translations: [Hypersomnia, unspecified] Chronic Residual codes; unclassified (18 sources) Past history of procedure; Translations: [Other specified postprocedural states] 09-02-2021 Episodic Residual codes; unclassified (20 sources) Insomnia; Translations: [Insomnia, unspecified] 10-29-2015 Episodic Residual codes; unclassified (13 sources) Amnesia; Translations: [Other amnesia] 12-20-2022 Episodic Residual codes; unclassified (13 sources) Family history of aneurysm of artery; Translations: [Family history of ischemic heart disease and other diseases of the circulatory system] 12-20-2022 Episodic Residual codes; unclassified (2 sources) Family history of ischemic heart disease and other diseases of the circulatory system; Translations: [Family history of stroke (cerebrovascular)] 12-20-2022 Episodic Residual codes; unclassified (10 sources) Electronic cigarette user; Translations: [Other problems related to lifestyle] 11-06-2024 Episodic Screening and history of mental health and substance abuse codes (20 sources) Ex-smoker; Translations: [Personal history of nicotine dependence] Episodic Skin and subcutaneous tissue infections (20 sources) Abscess of skin and/or subcutaneous tissue; Translations: [Cutaneous abscess, unspecified] 04-13-2021 Episodic Spondylosis; intervertebral disc disorders; other back problems (20 sources) Low back pain; Translations: [Low back pain] Episodic Sprains and strains (19 sources) Sprain of knee; Translations: [Sprain of unspecified site of unspecified knee, initial encounter] Onset: 07-10-2022 Episodic Substance-related disorders (20 sources) Nicotine dependence; Translations: [Nicotine dependence, unspecified, uncomplicated] Onset: 03-17-2021 03-17-2021 Chronic Superficial injury; contusion (12 sources) Abrasion of forearm, infected; Translations: [Abrasion of unspecified forearm, initial encounter] 03-30-2024 Episodic Thyroid disorders (20 sources) Goiter; 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 Unclassified (9 sources) L30.9 - Dermatitis, unspecified Unclassified (1 source) Obesity, Class III, BMI 40-49.9 (morbid obesity) ([facility]); Translations: [Obesity, Class III, BMI 40-49.9 (morbid obesity) (HCC)] Onset: 05-07-2025 Unclassified (1 source) Cough, unspecified; Translations: [Cough, unspecified] Onset: 06-04-2025 Unclassified (1 source) Low back pain, unspecified; Translations: [Low back pain, unspecified] Onset: 03-25-2025 Viral infection (18 sources) Viral disease; Translations: [Viral infection, unspecified] [...] Test Name Value Interpretation Reference Range Facility Chest PA and Lateralon 05-30 Chest PA and Lateral [facility] Imaging Services [address], [place] [address] Chest PA and Lateral MR#: [id number] Acct: [id number] Name: SUGEY WEST Rep #: [id number] : 2000 F 24 From: Jeff Benton MD PCP: Dr. Eliazar Amos MD Status: DEP ER Study: Chest PA and Lateral Date of Exam: 05/30/25 Exam# [id number] Ordering Dr: Elroy Jain DO PROCEDURE: CHEST PA AND LATERAL 05/29/2025 REASON FOR EXAM: COUGH TECHNIQUE: Procedure Code: RADCXR Modality: DX Procedure: CHEST PA AND LATERAL COMPARISON: 01/17/2025 FINDINGS: Hardware: None. Heart: The heart size is normal. Mediastinum: The mediastinal contour is unremarkable. Lungs: The lungs are clear. Bones: The bones are unremarkable. RAD/Chest PA and Lateral IMPRESSION: NO ACUTE FINDINGS. [facility] CC: Dr. Eliazar Amos MD; Elroy Jain DO Web Offset Press Feeder: Signed Normal [facility] Emergency Department Summary on 05-30-2025 Emergency Department Summary [facility] Medical Records Department [address] [place] [address] Emergency Department Summary 05/30/25 MR#: [id number] Acct: [id number] Name: SUGEY WEST Rep #: [id number] : 2000 24 From: Elroy Jain DO PCP: Dr. Eliazar Amos MD Status:DEP ER Location: ED HPI History of Present Illness Chief Complaint: Cold Sx Informant: patient Narrative Narrative: Patient is a 24-year-old female with past medical history of hypertension asthma anxiety and depression. She states she has had 2 to 3 days of increased nasal congestion sore throat cough. She reports she has noticed bilateral ear pain worse on the left. She states that she feels like her symptoms are worsening and has concern that this may be a bacterial infection requiring antibiotics and secondary to this comes in for evaluation [facility] Medical History Acute back pain Upper respiratory [...] spasm 3 Unknown Rx days #9 tabs azelastine 137 mcg (0.1 %) nasal 2 spray intranasal BID #30 mL 05/06 02/26 Unknown Rx spray codeine 10 mg-guaifenesin 100 mg/5 10 ml PO 4X/DAY PRN cough 7 days 05/30/25 Unknown Rx mL oral liquid #280 mL prednisone 20 mg tablet 40 mg (2 x 20 mg) PO DAILY 5 days 05/30/25 Unknown Rx #10 tabs Allergy/AdvReac Type Severity Reaction Status Date / Time vancomycin Allergy Mild Hives Verified 05/30/25 00:04 amoxicillin Allergy Unknown unknown Verified 05/30/25 00:04 azithromycin (From Zithromax Allergy Unknown unknown Verified 05/30/25 00:04 Z-Clyde) Penicillins Allergy Unknown unknown Verified 05/30/25 00:04 Family History Father No problems noted. Grandfather [...] did patient quit smokin09/04/2020- pt vapes second mccormack (more content not included)... Normal [facility] 12 Lead EKGon 05-16-2025 12 Lead EKG [facility] Cardiovascular Services [address] [place] [address] 12 Lead EKG 05/16/25 1234 MR#: [id number] Acct: [id number] Name: SUGEY WEST Rep #: [id number] : 2000 24 From: George Stone MD [...] sinus rhythm Normal ECG Confirmed by George Stone ([id number]), desk editor ЕЛЕНА TIAN ([id number]) on 05/19/2025 1:09:13 PM Referred By: ADRIEN Confirmed By: George Stone 05/19/25 1309 Date George Stone MD CC: Dr. Eliazar Amos MD; Dr. Shlomo Santizo DO Signed Normal [facility] Absolute lymphocyte countOrd ered By: Shlomo Santizo on 05-16-2025 Lymphocytes Auto (Unsp spec) [#/Vol] 2.08 10*3/uL 0.83-4.51 [facility] Absolute neutrophil countOrd ered By: Shlomo Santizo on 05-16-2025 Neutrophils (Bld) [#/Vol] 5.1 10*3/uL 2.0-7.7 [facility] Anion gap in Serum or Plasma Ordered By: Shlomo Santizo on 05-16-2025 Anion gap [Moles/Vol] 11 mmol/L 5-15 [facility] Automated lymphocyte count a s percentage of total leukocytesOrdered By: Shlomo Santizo on 05-16-2025 Lymphocytes/100 WBC Auto (Unsp spec) 27.3 % 19-41 [facility] BUN/creatinine ratioOrdered By: Shlomo Santizo on 05-16-2025 Urea nitrogen/Creatinine [Mass ratio] 10.7 mg/mg 10-20 [facility] Basophil percentageOrdered B y: Shlomo Santizo on 05-16-2025 Basophils/100 WBC (Bld) 0.3 % 0-1 [facility] Bedside Glucoseon 05-16-2025 FINGERSTICK GLU 334 mg/dL High 74-106 [facility] Comment on above: Result Comment: RICA GEMENT OF PATIENT CARE PER NURSING PROTOCOL Performed By: #### L 501.080 #### [facility] Laboratory [address] [place], [address] FINGERSTICK GLU 195 mg/dL High 74-106 [facility] Comment on above: Result Comment: RICA GEMENT OF PATIENT CARE PER NURSING PROTOCOL Performed By: #### L 501.080 ####[facility] [address] [place], [address] Beta-Hydroxbytyrateon 2024 BETA-HYDROXYBUT 0.2 mmol/L Normal 0.0-0.3 [facility] Comment on above: Performed By: #### L 503.6005, L100.0100, L700.6800, L500.4050, L501.6901, L501.2450 ####[facility] [address] [place], [address] Beta-hydroxybutyrateOrdered By: Shlomo Santizo on 05-16-2025 Beta hydroxybutyrate [Mass/Vol] 0.2 mmol/L 0.0-0.3 [facility] Bilirubin Test strip Ql (U)O rdered By: Shlomo Santizo on 05-16-2025 Bilirubin Ql (U) Negative Negative [facility] Bilirubin, totalOrdered By: Shlomo Santizo on 05-16-2025 Bilirubin [Mass/Vol] 0.24 mg/dL 0.00-1.30 [facility] CBC W/Diff, Automatedon 05-05 Absolute Lymph 2.08 X10 3/uL Normal 0.83-4.51 [facility] Comment on above: Performed By: #### L 503.6005, L100.0100, L700.6800, L500.4050, L501.6901, L501.2450 #### [facility] [address] [place], [address] Absolute Neut 5.1 X10 3/uL Normal 2.0-7.7 [facility] Comment on above: Performed By: #### L 503.6005, L100.0100, L700.6800, L500.4050, L501.6901, L501.2450 #### [facility] [address] [place], [address] Basophils/100 WBC (Bld) 0.3 % Normal 0-1 [facility] Comment on above: Performed By: #### L 503.6005, L100.0100, L700.6800, L500.4050, L501.6901, L501.2450 #### [facility] [address] [place], [address] Eosinophils/100 WBC (Bld) 1.1 % Normal 0-5 [facility] Comment on above: Performed By: #### L 503.6005, L100.0100, L700.6800, L500.4050, L501.6901, L501.2450 #### [facility] [address] [place], [address] Erythrocyte distribution width (RBC) [Ratio] 11.7 % Normal 11.6-14.6 [facility] Comment on above: Performed By: #### L 503.6005, L100.0100, L700.6800, L500.4050, L501.6901, L501.2450 #### [facility] [address] [place], [address] Hematocrit (Bld) [Volume fraction] 38.2 % Normal 37-47 [facility] Comment on above: Performed By: #### L 503.6005, L100.0100, L700.6800, L500.4050, L501.6901, L501.2450 #### [facility] [address] [place], [address] Hemoglobin (Bld) [Mass/Vol] 13.4 g/dL Normal 12.0-15.0 [facility] Comment on above: Performed By: #### L 503.6005, L100.0100, L700.6800, L500.4050, L501.6901, L501.2450 #### [facility] [address] [place], [address] IG% 0.300 Normal 0.0-0.9 [facility] Comment on above: Result Comment: IG% - Immature Granulocytes (promyelocytes, myelocytes and metamyelocytes) > 1% indicates that a LEFT SHIFT is Present. Performed By: #### L 503.6005, L100.0100, L700.6800, L500.4050, L501.6901, L501.2450 #### [facility] [address] [place], [address] Lymphocytes/100 WBC (Bld) 27.3 % Normal 19-41 [facility] Comment on above: Performed By: #### L 503.6005, L100.0100, L700.6800, L500.4050, L501.6901, L501.2450 #### [facility] [address] [place], [address] MCH (RBC) [Entitic mass] 33.3 pg High 27.0-32.0 [facility] Comment on above: Performed By: #### L 503.6005, L100.0100, L700.6800, L500.4050, L501.6901, L501.2450 #### [facility] [address] [place], [address] MCHC (RBC) [Mass/Vol] 35.1 g/dL Normal 32-36 [facility] Comment on above: Performed By: #### L 503.6005, L100.0100, L700.6800, L500.4050, L501.6901, L501.2450 #### [facility] [address] [place], [address] MCV (RBC) [Entitic vol] 94.8 fL Normal 81-99 [facility] Comment on above: Performed By: #### L 503.6005, L100.0100, L700.6800, L500.4050, L501.6901, L501.2450 #### [facility] [address] [place], [address] Monocytes/100 WBC (Bld) 4.2 % Normal 0-10 [facility] Comment on above: Performed By: #### L 503.6005, L100.0100, L700.6800, L500.4050, L501.6901, L501.2450 #### [facility] [address] [place], [address] Neutrophils/100 WBC (Bld) 66.8 % Normal 47-70 [facility] Comment on above: Performed By: #### L 503.6005, L100.0100, L700.6800, L500.4050, L501.6901, L501.2450 #### [facility] [address] [place], [address] Nucleated RBC (Bld) [#/Vol] 0 10*3/uL Normal 0-5 [facility] Comment on above: Performed By: #### L 503.6005, L100.0100, L700.6800, L500.4050, L501.6901, L501.2450 #### [facility] [address] [place], [address] Platelet mean volume (Bld) [Entitic vol] 9.2 fL Normal 6.2-12.0 [facility] Comment on above: Performed By: #### L 503.6005, L100.0100, L700.6800, L500.4050, L501.6901, L501.2450 #### [facility] [address] [place], [address] Platelets (Bld) [#/Vol] 268 10*3/uL Normal 150-450 [facility] Comment on above: Performed By: #### L 503.6005, L100.0100, L700.6800, L500.4050, L501.6901, L501.2450 #### [facility] [address] [place], [address] RBC (Bld) [#/Vol] 4.03 10*6/uL Low 4.2-5.4 [facility] Comment on above: Performed By: #### L 503.6005, L100.0100, L700.6800, L500.4050, L501.6901, L501.2450 #### [facility] [address] [place], [address] RDW SD 39.8 fl Normal 35.1-43.9 [facility] Comment on above: Performed By: #### L 503.6005, L100.0100, L700.6800, L500.4050, L501.6901, L501.2450 #### [facility] [address] [place], [address] WBC (Bld) [#/Vol] 7.6 10*3/uL Normal 4.4-11.0 [facility] Comment on above: Performed By: #### L 503.6005, L100.0100, L700.6800, L500.4050, L501.6901, L501.2450 #### [facility] [address] [place], [address] CO2 (BldV) [Moles/Vol]Ordere d By: Shlomo Santizo on 05-16-2025 CO2 [Moles/Vol] 33 mmol/L 23-33 [facility] Carbon dioxide, total [Moles /volume] in Central venous bloodOrdered By: Shlomo Santizo on 05-16-2025 CO2 [Moles/Vol] 25.0 mmol/L 21.0-32.0 [facility] Chloride assayOrdered By: Armando Santizo on 05-16-2025 Chloride [Moles/Vol] 101 mmol/L 98-108 [facility] Comprehensive Metabolic Prof ilon 05-16-2025 Albumin [Mass/Vol] 3.9 g/dL Normal 3.5-5.0 [facility] Comment on above: Performed By: #### L 503.6005, L100.0100, L700.6800, L500.4050, L501.6901, L501.2450 #### [facility] [address] [place], [address] Albumin/Globulin [Mass ratio] 1.5 {ratio} Normal 0.9-2.4 [facility] Comment on above: Performed By: #### L 503.6005, L100.0100, L700.6800, L500.4050, L501.6901, L501.2450 #### [facility] [address] [place], [address] ALK PHOS 65 U/L Normal 35-104 [facility] Comment on above: Performed By: #### L 503.6005, L100.0100, L700.6800, L500.4050, L501.6901, L501.2450 #### [facility] [address] [place], [address] ALT [Catalytic activity/Vol] 47 U/L High <=34 [facility] Comment on above: Performed By: #### L 503.6005, L100.0100, L700.6800, L500.4050, L501.6901, L501.2450 #### [facility] [address] [place], [address] AST [Catalytic activity/Vol] 35 U/L High <=31 [facility] Comment on above: Performed By: #### L 503.6005, L100.0100, L700.6800, L500.4050, L501.6901, L501.2450 #### [facility] [address] [place], [address] Bilirubin [Mass/Vol] 0.24 mg/dL Normal 0.00-1.30 [facility] Comment on above: Performed By: #### L 503.6005, L100.0100, L700.6800, L500.4050, L501.6901, L501.2450 #### [facility] [address] [place], [address] BUN/CRE 10.7 RATIO Normal 10-20 [facility] Comment on above: Performed By: #### L 503.6005, L100.0100, L700.6800, L500.4050, L501.6901, L501.2450 #### [facility] [address] [place], [address] Calcium [Mass/Vol] 9.2 mg/dL Normal 7.6-11.0 [facility] Comment on above: Performed By: #### L 503.6005, L100.0100, L700.6800, L500.4050, L501.6901, L501.2450 #### [facility] [address] [place], [address] Chloride [Moles/Vol] 101 mmol/L Normal 98-108 [facility] Comment on above: Performed By: #### L 503.6005, L100.0100, L700.6800, L500.4050, L501.6901, L501.2450 #### [facility] [address] [place], [address] CO2 [Moles/Vol] 25.0 mmol/L Normal 21.0-32.0 [facility] Comment on above: Performed By: #### L 503.6005, L100.0100, L700.6800, L500.4050, L501.6901, L501.2450 #### [facility] [address] [place], [address] Creatinine [Mass/Vol] 0.77 mg/dL Normal 0.70-1.20 [facility] Comment on above: Performed By: #### L 503.6005, L100.0100, L700.6800, L500.4050, L501.6901, L501.2450 #### [facility] [address] [place], [address] ECRCL 171.57 ml/min Normal 50-250 [facility] Comment on above: Performed By: #### L 503.6005, L100.0100, L700.6800, L500.4050, L501.6901, L501.2450 #### [facility] [address] [place], [address] GAP 11 Normal 5-15 [facility] Comment on above: Performed By: #### L 503.6005, L100.0100, L700.6800, L500.4050, L501.6901, L501.2450 #### [facility] [address] [place], [address] GFR/1.73 sq M.predicted among non-blacks MDRD (S/P/Bld) [Vol rate/Area] 108 mL/min/{1.73_m2} Normal >60 [facility] Comment on above: Result Comment: mL/m in/1.73m2 CKD-EPI Creatinine Equation (2020) Performed By: #### L 503.6005, L100.0100, L700.6800, L500.4050, L501.6901, L501.2450 #### [facility] [address] [place], [address] Globulin (S) [Mass/Vol] 2.7 g/dL Normal 2.2-4.2 [facility] Comment on above: Performed By: #### L 503.6005, L100.0100, L700.6800, L500.4050, L501.6901, L501.2450 #### [facility] [address] [place], [address] Glucose [Mass/Vol] 337 mg/dL High 70-99 [facility] Comment on above: Performed By: #### L 503.6005, L100.0100, L700.6800, L500.4050, L501.6901, L501.2450 #### [facility] [address] [place], [address] Potassium [Moles/Vol] 4.0 mmol/L Normal 3.3-5.1 [facility] Comment on above: Performed By: #### L 503.6005, L100.0100, L700.6800, L500.4050, L501.6901, L501.2450 #### [facility] [address] [place], [address] Sodium [Moles/Vol] 137 mmol/L Normal 133-145 [facility] Comment on above: Performed By: #### L 503.6005, L100.0100, L700.6800, L500.4050, L501.6901, L501.2450 #### [facility] [address] [place], [address] T PROT 6.6 g/dL Normal 5.9-8.4 [facility] Comment on above: Performed By: #### L 503.6005, L100.0100, L700.6800, L500.4050, L501.6901, L501.2450 #### [facility] [address] [place], [address] Urea nitrogen [Mass/Vol] 8 mg/dL Normal 4-19 [facility] Comment on above: Performed By: #### L 503.6005, L100.0100, L700.6800, L500.4050, L501.6901, L501.2450 #### [facility] [address] [place], [address] Emergency Department Summary on 05-16-2025 Emergency Department Summary [facility] Medical Records Department [address] [place] [address] Emergency Department Summary 05/16/25 MR#: [id number] Acct: [id number] Name: SUGEY WEST Rep #: [id number] : 2000 24 From: Shlomo Santizo DO PCP: Dr. Eliazar Amos MD Status:REG ER Location: ED ADDENDUM by Dr. Shlomo Santizo DO on 05/16/25 at 1443 Patient is EKG reviewed showed sinus rhythm rate of 73 bpm with DE interval 186 05/16/25 1443 Cosigner Signature (if [...] otherwise has no complaints just feels tired. [facility] Medical History Acute back pain Upper respiratory [...] type: e-ciga (more content not included)... Normal [facility] Eosinophil percentageOrdered By: Shlomo Santizo on 05-16-2025 Eosinophils/100 WBC (Bld) 1.1 % 0-5 [facility] Erythrocyte distribution wid th ratioOrdered By: Shlomo Santizo on 05-16-2025 Erythrocyte distribution width (RBC) [Ratio] 11.7 % 11.6-14.6 [facility] Erythrocyte distribution wid th standard deviationOrdered By: Shlomo Santizo on 05-16-2025 Erythrocyte distribution width (RBC) [Ratio] 39.8 fl 35.1-43.9 [facility] Glomerular filtration rate ( GFR) estimation/1.73 sq m using serum, plasma, or whole bOrdered By: Shlomo Santizo on 05-16-2025 GFR/1.73 sq M.predicted among non-blacks MDRD (S/P/Bld) [Vol rate/Area] 108 mL/min/{1.73_m2} >60 [facility] Comment on above: mL/min/1.73m2 CKD-EP I Creatinine Equation (2020) [facility] deOrdered By: Shlomo Santizo on 05-16-2025 Glucose [Mass/Vol] 195 mg/dL High 74-106 [facility] Comment on above: MANAGEMENT OF PATIEN T CARE PER NURSING PROTOCOL Hematocrit Auto (Bld) [Volum e fraction]Ordered By: Shlomo Santizo on 05-16-2025 Hematocrit (Bld) [Volume fraction] 38.2 % 37-47 [facility] Hemoglobin measurementOrdere d By: Shlomo Santizo on 05-16-2025 Hemoglobin (Bld) [Mass/Vol] 13.4 g/dL 12.0-15.0 [facility] Immature granulocytes/100 WB C Auto (Bld)Ordered By: Shlomo Santizo on 05-16-2025 Immature granulocytes/100 WBC (Bld) 0.300 % 0.0-0.9 [facility] Comment on above: IG% - Immature Granu locytes (promyelocytes, myelocytes and metamyelocytes) > 1% indicates that a LEFT SHIFT is Present. Ketones Test strip Ql (U)Ord ered By: Shlomobelinda Santizo on 05-16-2025 Ketones Ql (U) 15 mg/dl High Negative [facility] Laboratory - Chemistry and C hemistry - challengeOrdered By: Shlomo Santizo on 05-16-2025 AST [Catalytic activity/Vol] 35 U/L High <32 [facility] Lactic Acidon 05-16-2025 Lactate [Moles/Vol] 1.4 mmol/L Normal 0.0-2.0 [facility] Comment on above: Order Comment: Y Performed By: #### L 503.6005, L100.0100, L700.6800, L500.4050, L501.6901, L501.2450 #### [facility] [address] [place], [address] Lactic acid measurementOrder ed By: Shlomo Santizo on 05-16-2025 Lactate [Moles/Vol] 1.4 mmol/L 0.0-2.0 [facility] Lipaseon 05-16-2025 Lipase [Catalytic activity/Vol] 42 U/L Normal - [facility] Comment on above: Result Comment: Plea se note: LIPASE revised reference range effective 22. New Lipase methodology. Expected to produce lower values than the previous assay method. NEW Reference Range: 13 - 75 U/L Performed By: #### L 503.6005, L100.0100, L700.6800, L500.4050, L501.6901, L501.2450 ####[facility] [address] [place], [address] Lipase measurementOrdered By : Shlomo Santizo on 05-16-2025 Lipase [Catalytic activity/Vol] 42 U/L 13-75 [facility] Comment on above: Please note:LIPASE r evised reference range effective 22. New Lipase methodology. Expected to produce lower values than the previous assay method. NEW Reference Range: 13 - 75 U/L MCV (mean corpuscular volume ) determinationOrdered By: Shlomo Santizo on 05-16-2025 MCV (RBC) [Entitic vol] 94.8 fL 81-99 [facility] Mean corpuscular hemoglobin (MCH) determinationOrdered By: Shlomo Santizo on 05-16-2025 MCH (RBC) [Entitic mass] 33.3 pg High 27.0-32.0 [facility] Mean corpuscular hemoglobin concentration (MCHC) determinationOrdered By: Shlomo Santizo on 05-16-2025 MCHC (RBC) [Mass/Vol] 35.1 g/dL 32-36 [facility] Mean platelet volume determi nationOrdered By: Shlomo Santizo on 05-16-2025 Platelet mean volume (Bld) [Entitic vol] 9.2 fL 6.2-12.0 [facility] Microscopic analysis of urin e for red blood cells (RBC)Ordered By: Shlomo Santizo on 05-16-2025 Microscopic analysis of urine for red blood cells (RBC) 0 SEEN /hpf 0-5 [facility] Monocyte percentageOrdered B y: Shlomo Santizo on 05-16-2025 Monocytes/100 WBC (Bld) 4.2 % 0-10 [facility] Mucus LM Ql (Urine sed)Order ed By: Shlomo Santizo on 05-16-2025 Mucus Ql (Urine sed) 0 SEEN /hpf [facility] Neutrophil percentageOrdered By: Shlomo Santizo on 05-16-2025 Neutrophils/100 WBC (Bld) 66.8 % 47-70 [facility] Nitrite Test strip Ql (U)Ord ered By: Shlomo Santizo on 05-16-2025 Nitrite Ql (U) Negative Negative [facility] No Panel InformationOrdered By: Shlomo Santizo on 05-16-2025 Blood Gas Sample Site Not entered [facility] Blood Gas Specimen Type JULY W [facility] Oxygen Delivery Device Not entered [facility] Nucleated red blood cell per centageOrdered By: Shlomo Santizo on 05-16-2025 Nucleated RBC/100 WBC (Bld) [Ratio] 0 % 0-5 [facility] Platelet countOrdered By: Armando Santizo on 05-16-2025 Platelets (Bld) [#/Vol] 268 10*3/uL 150-450 [facility] Potassium measurement (mass/ volume)Ordered By: Shlomo Santizo on 05-16-2025 Potassium (Unsp spec) [Mass/Vol] 4.0 mmol/L 3.3-5.1 [facility] ,Serum,hCG Quali.on 05-16-2025 HCG, SERUM QUAL Negative Normal [facility] Comment on above: Performed By: #### L 503.6005, L100.0100, L700.6800, L500.4050, L501.6901, L501.2450 #### [facility] [address] [place], [place], [id number] Protein Test strip Ql (U)Ord ered By: Shlomo Santizo on 05-16-2025 Protein Ql (U) Negative Negative [facility] RBC Auto (Bld) [#/Vol]Ordere d By: Shlomo Santizo on 05-16-2025 RBC (Bld) [#/Vol] 4.03 10*6/uL Low 4.2-5.4 [facility] Serum beta-hCG test, qualita tiveOrdered By: Shlomo Santizo on 05-16-2025 Beta HCG ( test) Ql Negative [facility] Serum creatinine measurement (mass/volume)Ordered By: Shlomo Santizo on 05-16-2025 Creatinine [Mass/Vol] 0.77 mg/dL 0.70-1.20 [facility] Serum globulin measurementOr dered By: Shlomo Santizo on 05-16-2025 Globulin (S) [Mass/Vol] 2.7 g/dL 2.2-4.2 [facility] Serum glucose measurement (m ass/volume)Ordered By: Shlomo Santizo on 05-16-2025 Glucose [Mass/Vol] 337 mg/dL High 70-99 [facility] Serum or plasma alanine shultz otransferase (ALT) measurementOrdered By: Shlomo Santizo on 05-16-2025 ALT [Catalytic activity/Vol] 47 U/L High <35 [facility] Serum or plasma albumin jalyn urement (mass/volume)Ordered By: Shlomo Santizo on 05-16-2025 Albumin [Mass/Vol] 3.9 g/dL 3.5-5.0 [facility] Serum or plasma albumin/glob ulin mass ratioOrdered By: Shlomo Santizo on 05-16-2025 Albumin/Globulin [Mass ratio] 1.5 {ratio} 0.9-2.4 [facility] Serum or plasma alkaline julio sphatase measurementOrdered By: Shlomo Santizo on 05-16-2025 ALP [Catalytic activity/Vol] 65 U/L 35-104 [facility] Serum or plasma calcium jalyn urement (mass/volume)Ordered By: Shlomo Santizo on 05-16-2025 Calcium [Mass/Vol] 9.2 mg/dL 7.6-11.0 [facility] Serum or plasma urea nitroge n measurement (mass/volume)Ordered By: Shlomo Santizo on 05-16-2025 Urea nitrogen [Mass/Vol] 8 mg/dL 4-19 [facility] Sodium levelOrdered By: Josh Santizo on 05-16-2025 Sodium [Moles/Vol] 137 mmol/L 133-145 [facility] Squamous epithelial cells de tection in urine sediment by light microscopyOrdered By: Shlomo Santizo on 05-16-2025 Epithelial cells.squamous LM Ql (Urine sed) 0-5 SEEN /hpf 5-10 [facility] Total proteinOrdered By: Kush Santizo on 05-16-2025 Protein [Mass/Vol] 6.6 g/dL 5.9-8.4 [facility] Urinalysis, Completeon 05-16 EPI,SQUAMOUS 0-5 SEEN Normal 5-10 [facility] Comment on above: Order Comment: CLEAN CATCH Performed By: #### L 400.0001 ####[facility] [address] [place], [address] WBC 0-5 SEEN Normal 0-5 [facility] Comment on above: Order Comment: CLEAN CATCH Performed By: #### L 400.0001 ####[facility] [address] [place], [address] BACTERIA 0 SEEN Normal None Seen [facility] Comment on above: Order Comment: CLEAN CATCH Performed By: #### L 400.0001 ####[facility] [address] [place], [address] Mucus Ql (Urine sed) 0 SEEN Normal [facility] Comment on above: Order Comment: CLEAN CATCH Performed By: #### L 400.0001 ####[facility] [address] [place], [address] RBC 0 SEEN Normal 0-5 [facility] Comment on above: Order Comment: CLEAN CATCH Performed By: #### L 400.0001 ####[facility] [address] [place], [place], [id number] Urine clarityOrdered By: Kush Santizo on 05-16-2025 Clarity (U) Clear Clear [facility] Urine color determinationOrd ered By: Shlomo Santizo on 05-16-2025 Color (U) Yellow Yellow [facility] Urine glucose detectionOrder ed By: Shlomo Santizo on 05-16-2025 Glucose Ql (U) 1000 mg/dl High Normal [facility] Urine leukocyte esterase det ection by dipstickOrdered By: Shlomo Santizo on 05-16-2025 Leukocyte esterase Test strip Ql (U) Negative Negative [facility] Urine pHOrdered By: Shlomo walls on 05-16-2025 pH (U) 6.5 [pH] 5.0 - 8.0 [facility] Urine sediment bacteria coun t by microscopy (number/high power field)Ordered By: Shlomo Santizo on 05-16-2025 Bacteria LM.HPF (Urine sed) [#/Area] 0 /[HPF] None Seen [facility] Urine specific gravity measu rementOrdered By: Shlomo Santizo on 05-16-2025 Specific gravity (U) [Rel density] 1.010 1.002-1.030 [facility] Urine urobilinogen measureme ntOrdered By: Shlomo Santizo on 05-16-2025 Urobilinogen Ql (U) Normal mg/dl Normal [facility] Venous Blood Gason 5 Blood Gas Type JULY Normal [facility] Comment on above: Performed By: #### L 9000.0810 #### [facility] [address] [place], [address] CO2 [Moles/Vol] 33 mmol/L Normal 23-33 [facility] Comment on above: Performed By: #### L 9000.0810 #### [facility] [address] [place], [address] FI02 21.0 Normal [facility] Comment on above: Performed By: #### L 9000.0810 #### [facility] [address] [place], [address] HCO3 (Bld) [Moles/Vol] 32 mmol/L High 22-26 [facility] Comment on above: Performed By: #### L 9000.0810 #### [facility] [address] [place], [address] O2 Delivery Dev Not entered Normal [facility] Comment on above: Performed By: #### L 9000.0810 #### [facility] [address] [place], [address] SITE Not entered [facility] Comment on above: Performed By: #### L 9000.0810 #### [facility] [address] [place], [address] VBG BE 7 mmol/L High -1.0-3.5 [facility] Comment on above: Performed By: #### L 9000.0810 #### [facility] [address] [place], [address] VBG pCO2 52.7 mmHg High 41-51 [facility] Comment on above: Performed By: #### L 9000.0810 #### [facility] [address] [place], [address] VBG pH 7.38 Normal 7.32-7.42 [facility] Comment on above: Performed By: #### L 9000.0810 #### [facility] [address] [place], [place], [address] VBG PO2 37 mmHg Normal 25-40 [facility] Comment on above: Performed By: #### L 9000.0810 #### [facility] [address] [place], [place], [address] VBG SO2 69 Normal 50-70 [facility] Comment on above: Performed By: #### L 9000.0810 #### [facility] [address] [place], [place], [address] Venous blood base excess silvestre surementOrdered By: Shlomo Santizo on 05-16-2025 Base excess Calc (BldV) [Moles/Vol] 7 mmol/L High -1.0-3.5 [facility] Venous blood bicarbonate silvestre surementOrdered By: Shlomo Santizo on 05-16-2025 HCO3 (Bld) [Moles/Vol] 32 mmol/L High 22-26 [facility] Venous blood oxygen saturati on measurementOrdered By: Shlomo Santizo on 05-16-2025 Oxygen saturation in Blood 69 % 50-70 [facility] Venous blood pH measurementO rdered By: Shlomo Santizo on 05-16-2025 pH (BldV) 7.38 [pH] 7.32-7.42 [facility] Venous blood partial pressur e of carbon dioxide measurementOrdered By: Shlomo Santizo on 05-16-2025 CO2 (BldV) [Partial pressure] 52.7 mm[Hg] High 41-51 [facility] Venous blood partial pressur e of oxygen measurementOrdered By: Shlomo Santizo on 05-16-2025 Oxygen (BldV) [Partial pressure] 37 mm[Hg] 25-40 [facility] White blood cell (WBC) count Ordered By: Shlomo Santizo on 05-16-2025 WBC (Bld) [#/Vol] 7.6 10*3/uL 4.4-11.0 [facility] White blood cell countOrdere d By: Shlomo Santizo on 05-16-2025 White blood cell count 0-5 SEEN /hpf 0-5 [facility] CNNURSEon 05-07-2025 CNNURSE Nurse Visit (ENDIMT) SUGEY WEST ([id number]) 2000 F T Date Time Provider Department 05/07/25 3:00 PM DULCE SMITH During your visit today, we recorded the following information about you: Dulce Smith RN 05/07/2025 3:31 PM Signed DIABETES CARE AND EDUCATION VISIT Location: [place] Type of visit: In person individual PATIENT'S [...] carb counting based on logs Current CGM: Freestyle Jazmin 3+ In need of training for [...] (HCC) [E11.9, Z79.85] Order(s):ENDOCRINOLOGY DIETITIAN VISIT (MNT) [6797777] Order #: [id number]: 4 Prescriptions as of 05/07/2025 - dulaglutide [...] over 150) ~ 60 units - Insulin [place], Disposable, (BD ULTRAFINE III MINI PEN) 31 gauge x 3/16" Uses 4 per day with insulin injection [...] BID, # 30 gram(s), 0 Refill(s), Pharmacy: [facility] #[id number], 177.5, cm, 03/13/23 10:35:00 EDT, Height, 117.5 [...] as instruc (more content not included)... Normal [facility] CNOVon 05-07-2025 CNOV Office Visit (ENWSTR ) SUGEY WEST ([id number]) 2000 F T Date Time Provider Department [...] at hospital) Has not yet seen ENDO MANAGER LOSS PREVENTION - multiple appts scheduled and cancelled by patient No change in nutrition Was denied unruly and haseeb by insurance Has not been on insulins [...] Take 2 (more content not included)... Normal [facility] HEMOGLOBIN A1C (POC)on 05-07 HbA1c (Bld) [Mass fraction] 9.7 % Abnormal 4.3 - 5.6 % [facility] Comment on above: Location:[facility], [address], [place], [address] Point of care (POC) Hemoglobin A1c (HGBA1C) [...] specific diabetes management situations: The POC device hotel maintenance worker provides a normal range of 4.2% to 6.5% for the HGBA1C POC test. However, the [place] [employer] guidelines indicate that patients with [...] Interpretation and review of laboratory results Abnormal [facility] Internal Medicine Office Vis iton 05-02-2025 Internal Medicine Office Visit [facility] [address] [place] [address] OFFICE VISIT Date of Service: 05/02/25 MR#: [id number] Acct: [id number] Name: SUGEY WEST Rep #: [id number] : 2000 Provider: Dr. Eliazar acosta MD Age/Sex: 24/F Location: [facility] Status: Signed Intake Vital Signs 03/20/25 18:09 [...] Chief Complaint: Follow-up back pain. 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 [facility] 04-25-2025 [facility] Telephone (ENDWST) SUGEY WEST ([id number]) 2000 F CHT Date Time Provider Department 04/25/25 ALEX ONTIVEROS During your visit today, we recorded the following information about you: Antonia Ramsey MA 04/25/2025 1:09 PM Signed Received a call from patient. She is requesting to speak only with Endocrinology nurse. She will not give any details about why she is calling. States she is having a problem. Attempted to reach Endo nurse. Please call patient back at [phone]. Mónica Casiano MA 04/25/2025 2:39 PM Signed [...] placed on waitlist. NARDA Artis Dianne C, [facility]NA[facility] 04/27/2025 7:02 PM Signed I have sent this patient to MANAGER LOSS PREVENTION and EDUCATOR. Doesn't appear that she has [...] over 150) ~ 60 units - Insulin [place], Disposable, (BD ULTRAFINE III MINI PEN) 31 gauge x 3/16" Uses 4 per day with insulin injection E11.9 - metFORMIN ER (GLUCOPHAGE XR) 500 mg 24 hr tablet Take 2 tabs with breakfast, 2 tabs with dinner - Blood-Glucose Sensor (CamioCamSTYLE JAZMIN 3 PLUS SENSOR) osito CHANGE SENSOR [...] BID, # 30 gram(s), 0 Refill(s), Pharmacy: [facility] #[id number], 177.5, cm, 03/13/23 10:35:00 EDT, Height, 117.5 [...] Encounter Status:Closed by ANTONIA RAMSEY on 05/23/25 [facility] Emergency Department Summary on 04-08-2025 Emergency Department Summary [facility] Medical Records Department [address] [place] [address] Emergency Department Summary 04/08/25 MR#: [id number] Acct: [id number] Name: SUGEY WEST Rep #: [id number] : 2000 24 From: Timo Harris DO PCP: Dr. Eliazar Amos MD Status:DEP ER Location: ED HPI History of Present Illness Chief Complaint: Ear Problem [facility] Medical History (Updated 04/08/25 @ 23:33 by [...] 10/31/24 U nknown Rx blood sugar diagnostic (Nimbus ConceptsTouch #10 ea 11/06/24 Unknown History Verio test [...] DOES VALENTINO (more content not included)... Normal [facility] Internal Medicine Office Vis itoeric 03-20-2025 Internal Medicine Office Visit [facility] [address] [place] [address] [address] [place], [place] [address] OFFICE VISIT Date of Service: 03/20/25 MR#: [id number] Acct: [id number] Name: SUGEY WEST Rep #: [id number] : 2000 Provider: Dr. Eliazar acosta MD Age/Sex: 24/F Location: [facility] Status: Signed Intake Vital Signs 03/18/25 11:01 [...] Complaint: Back pain and follow-up chronic conditions Yeast Distiller Required: No Accompanied by: Self Is patient [...] back pain mid lower back lumbar region [facility] Medical History (Updated 03/20/25 @ 18:58 by [...] History (Revi (more content not included)... Normal [facility] Laboratory - Hematology and Cell countsOrdered By: Eliazar Amos on 03-20-2025 HbA1c (Bld) [Mass fraction] 8.8 % High 4.2-6.3 [facility] Emergency Department Summary on 03-18-2025 Emergency Department Summary [facility] Medical Records Department [address] [place] [address] Emergency Department Summary 03/18/25 MR#: [id number] Acct: [id number] Name: SUGEY WEST Rep #: [id number] : 2000 24 From: Dedrick Lagos DO [...] intact Psych: Cooperative, appropriate mood and affect [facility] Medical History (Updated 03/18/25 @ 12:28 [...] days #9 tabs (more content not included)... [facility] 01-20-2025 [facility] Telephone (EMQ) SUGEY WEST ([id number]) 2000 F CHT Date Time Provider Department 01/20/25 PAIGE MULLER During your visit today, we recorded the following information about you: Kendrick Fong 01/20/2025 5:14 PM Signed Initiated PA for semaglutide (OZEMPIC) 1 mg/dose (4 mg/3 mL) through Covermymeds Questions Completed/attached notes Waiting for determination Kendrick Red Prior [facility] [place] Allergies As of Date: 01/20/2025 Noted Allergy [...] 30 gram(s), 0 Refill(s), Pharmacy: [facility] #[id number], 177.5, cm, 03/13/23 10:35:00 EDT, Height, 117.5 - SUMAtriptan (IMITREX) 50 mg tablet TAKE 1 TABLET BY MOUTH EVERY 2 HOURS NEEDED FOR HEADACHE. MAX DOSE OF 2 TABLETS A DAY - cyclobenzaprine (FLEXERIL) 10 mg tablet Take 10 mg by mouth three times daily. prn - Insulin [place], Disposable, (BD ULTRAFINE III MINI PEN) 31 gauge x 3/16" Uses 4 per day with insulin injection [...] Status:Closed by KENDRICK FONG on 01/20/25 Normal [facility] Chest PA and Lateralon 01-17 Chest PA and Lateral [facility] Imaging Services [address] [place] [address] Chest PA and Lateral MR#: [id number] Acct: [id number] Name: SUGEY WEST Rep #: [id number] : 2000 F 24 From: Marshall Patel MD PCP: Dr. Eliazar Amos MD Status: REG ER Study: Chest PA and Lateral Date of Exam: 01/17/25 Exam# [id number] Ordering Dr: Faby Niño EXAM: XR Chest, 2 Views CLINICAL INDICATION: COUGH TECHNIQUE: Frontal and lateral views of the chest. COMPARISON: No relevant prior studies available. FINDINGS: LUNGS AND PLEURAL SPACES: Unremarkable. No consolidation. No pneumothorax. HEART: Unremarkable. No cardiomegaly. MEDIASTINUM: Unremarkable. Normal mediastinal contour. BONES/JOINTS: Unremarkable. No acute fracture. RAD/Chest PA and Lateral IMPRESSION: No acute cardiopulmonary process. Reading Location: [facility] CC: Dr. Eliazar Amos MD; ALEJANDRA Fry Web Offset Press Feeder: Signed Normal [facility] Emergency Department Summary on 01-17-2025 Emergency Department Summary [facility] Medical Records Department [address] [place] [address] Emergency Department Summary 01/17/25 MR#: [id number] Acct: [id number] Name: SUGEY WEST Rep #: [id number] : 2000 24 From: Faby ROBERTS PCP: [...] yesterday. No urinary symptoms. She vapes nicotine. [facility] Medical History (Updated 01/17/25 @ 21:16 [...] type: does not (more content not included)... [facility] 01-16-2025 [facility] Telephone (EMQ) SUGEY WEST ([id number]) 2000 F T Date Time Provider Department 01/16/25 PAIGE MULLER During your visit today, we recorded the following information about you: Arlene Carty 01/16/2025 4:17 PM Signed Patient calling to report that she uploaded her [employer] insurance card through [email or web address] (available for review in 01/16/25 scanned docs). RTE verified plan is active. Patient states that she does not have a separate plan for prescription coverage. She spoke with [employer] [email or web address] and they advised her to provide their prior auth ph. [phone] to the ordering practitioner. Kendrick Fong 01/20/2025 5:14 PM Signed Kendrick Red [facility] [place] Allergies As of Date: 01/16/2025 Noted Allergy [...] 30 gram(s), 0 Refill(s), Pharmacy: [facility] #[id number], 177.5, cm, 03/13/23 10:35:00 EDT, Height, 117.5 - SUMAtriptan (IMITREX) 50 mg tablet TAKE 1 TABLET BY MOUTH EVERY 2 HOURS NEEDED FOR HEADACHE. MAX DOSE OF 2 TABLETS A DAY - cyclobenzaprine (FLEXERIL) 10 mg tablet Take 10 mg by mouth three times daily. prn - Insulin [place], Disposable, (BD ULTRAFINE III MINI PEN) 31 gauge x 3/16" Uses 4 per day with insulin injection [...] Encounter Status:Closed by KENDRICK FONG on 01/20/25 [facility] 01-02-2025 [facility] Telephone (EMQ) SUGEY WEST ([id number]) 2000 F CHT Date Time Provider Department 01/02/25 PAIGE MULLER EMQ During your visit today, we recorded the following information about you: Kendrick Fong 01/02/2025 10:31 AM Signed Initiated PA for tirzepatide (MOUNJARO) 5 mg/0.5 mL through Covermymeds Waiting on Questions Questions Completed Waiting for determination Kendrick Red [facility] [place] Cynthia Redding LPN 01/13/2025 3:52 PM Signed Patient called. The MOUNJARO is not covered and would like Ozempic order placed to [facility]. AISHA Rodriguez Dianne C, APRN.ELECTRICAL HARDWARE ENGINEER 01/14/2025 8:58 AM Signed Patient's request for medication is as follows Requested Prescriptions Signed Prescriptions Disp Refills semaglutide (OZEMPIC) 1 mg/dose (4 mg/3 mL) pen 9 mL 3 Sig: Inject 1 mg subcutaneously one time a week. Authorizing Provider: PAIGE MULLER Order entered - please phone pharmacy and notify patient. Paige Muller APRN.ELECTRICAL HARDWARE ENGINEER Allergies As of Date: 01/02/2025 Noted Allergy Reaction AMOXICILLIN 04/05/2023 16 - Unknown PENICILLINS 04/05/2023 16 - Unknown SEASONAL ALLERGIES 12/10/2012 14 - Other: See Comments Comments: sneezing, watery eyes, tired ZITHROMAX (AZITHROMYCIN) 05/12/2008 8 - GI Upset Date Reviewed: 01/01/2025 Reviewed by: Violeta Owen MA - Fully Assessed Reason for Visit: Insurance Authorization [1693] Cmt: (MOUNJARO) 5 mg/0.5 mL Medication Problem [...] BID, # 30 gram(s), 0 Refill(s), Pharmacy: [id number], 177.5, cm, 03/13/23 10:35:00 EDT, Height, 117.5 - SUMAtriptan (IMITREX) 50 mg tablet TAKE 1 TABLET BY MOUTH EVERY 2 HOURS NEEDED FOR HEADACHE. MAX DOSE OF 2 TABLETS A DAY - cyclobenzaprine (FLEXERIL) 10 mg tablet Take 10 mg by mouth three times daily. prn - Insulin [place], Disposable, (BD ULTRAFINE III MINI PEN) 31 gauge x 3/16" Uses 4 per day with insulin injection [...] Status:Closed by PAIGE MULLER on 01/14/25 Normal [facility] 25(OH)D3 SerPl-ncon 2024 25-hydroxyvitamin D3 [Mass/Vol] 8.7 ng/mL Low 31.0-80.0 [facility] Comment on above: Order Comment: Speci men Type: BLOOD SPECIMENOrdering Facility: [facility] Address: [address] [place] [address] Performed By: #### 1 989-3 ####[facility] [id number] [place] [address] [place] ALBUMIN/CREATININE RATIO, UR INEon 01-01-2025 Albumin DL <= 20 mg/L (U) [Mass/Vol] mg/dL Normal [facility] Comment on above: Order Comment: Speci men Type: URINE SPECIMENOrdering Facility: [facility] Address: [address] [place] [address] Performed By: #### U ACR ####[facility] LABIA [id number] [place] [address] [place] Albumin/Creatinine (U) [Mass ratio] <19 Normal <30 [facility] Comment on above: Order Comment: Speci men Type: URINE SPECIMENOrdering Facility: [facility] Address: [address] [place] [address] Result Comment: Adul t Male and Female Nephrotic Criteria: <30 mg/g is considered normal to mildly increased 30-300 mg/g is considered moderately increased >300 mg/g is considered severely increased KDIGO. (2013). KDIGO 2012 Clinical Practice Guideline for the Evaluation and Management of Chronic Kidney Disease. Official Journal of the International Society of Nephrology, 3(1), 1-150. Performed By: #### U ACR ####[facility] LABCLIA [id number] [address] [place] Creatinine (U) [Mass/Vol] 62.5 mg/dL Normal 20.0-300.0 [facility] Comment on above: Order Comment: Speci men Type: URINE SPECIMENOrdering Facility: [facility] Address: [address] [place] [address] Performed By: #### U ACR ####[facility] LABCLIA [id number] [address] [place] CBC W Auto Differential pane l (Bld)on 01-01-2025 Basophils (Bld) [#/Vol] 0.03 10*3/uL [facility] Basophils/100 WBC (Bld) 0.3 % [facility] Differential cell count method Nom (Bld) Auto [facility] Eosinophils (Bld) [#/Vol] 0.1 10*3/uL [facility] Eosinophils/100 WBC (Bld) 1.2 % [facility] Erythrocyte distribution width (RBC) [Ratio] 12.3 % 11.5 - 15.0 % [facility] Hematocrit (Bld) [Volume fraction] 39.8 % 36.0 - 46.0 % [facility] Hemoglobin (Bld) [Mass/Vol] 13.9 g/dL 11.5 - 15.5 g/dL [facility] Immature granulocytes (Bld) [#/Vol] [facility] Immature granulocytes/100 WBC (Bld) 0.2 % [facility] Lymphocytes (Bld) [#/Vol] 2.97 10*3/uL [facility] Lymphocytes/100 WBC (Bld) 34.5 % [facility] MCH (RBC) [Entitic mass] 33.3 pg 26.0 - 34.0 pg [facility] MCHC (RBC) [Mass/Vol] 34.9 g/dL 30.5 - 36.0 g/dL [facility] MCV (RBC) [Entitic vol] 95.2 fL 80.0 - 100.0 fL [facility] Monocytes (Bld) [#/Vol] 0.43 10*3/uL [facility] Monocytes/100 WBC (Bld) 5 % [facility] Neutrophils (Bld) [#/Vol] 5.07 10*3/uL [facility] Neutrophils/100 WBC (Bld) 58.8 % [facility] Nucleated RBC (Bld) [#/Vol] NINF [facility] Nucleated RBC/100 WBC (Bld) [Ratio] 0 % /100 WBC [facility] Platelet mean volume (Bld) [Entitic vol] 9.2 fL 9.0 - 12.7 fL [facility] Platelets (Bld) [#/Vol] 280 10*3/uL [facility] RBC (Bld) [#/Vol] 4.18 10*6/uL 3.90 - 5.2 0 m/uL [facility] WBC (Bld) [#/Vol] 8.62 10*3/uL [facility] Basophils (Bld) [#/Vol] 0.03 10*3/uL Normal <0.11 [facility] Comment on above: Order Comment: Speci men Type: BLOOD SPECIMENOrdering Facility: [facility] Address: [address] [place] [address] Performed By: #### 5 7021-8 ####[facility] [id number] [address] [place] Basophils/100 WBC (Bld) 0.3 % Normal [facility] Comment on above: Order Comment: Speci men Type: BLOOD SPECIMENOrdering Facility: [facility] Address: [address] [place] [address] Performed By: #### 5 7021-8 ####[facility] [id number] [place] [address] [place] Differential cell count method Nom (Bld) Auto Normal [facility] Comment on above: Order Comment: Speci men Type: BLOOD SPECIMENOrdering Facility: [facility] Address: [address] [place] [address] Performed By: #### 5 7021-8 ####[facility]PITALNCA [id number] [place] [address] [place] Eosinophils (Bld) [#/Vol] 0.10 10*3/uL Normal <0.46 [facility] Comment on above: Order Comment: Speci men Type: BLOOD SPECIMENOrdering Facility: [facility] Address: [address] [place] [address] Performed By: #### 5 7021-8 ####[facility] [id number] [place] [address] [place] Eosinophils/100 WBC (Bld) 1.2 % Normal [facility] Comment on above: Order Comment: Speci men Type: BLOOD SPECIMENOrdering Facility: [facility] Address: [address] [place] [address] Performed By: #### 5 7021-8 ####[facility]ITALNCBEAV[facility] [id number] [place] [address] [place] Erythrocyte distribution width (RBC) [Ratio] 12.3 % Normal 11.5-15.0 [facility] Comment on above: Order Comment: Speci men Type: BLOOD SPECIMENOrdering Facility: [facility] Address: [address] [place] [address] Performed By: #### 5 7021-8 ####[facility]ITALNC[facility] [id number] [place] [address] [place] Hematocrit (Bld) [Volume fraction] 39.8 % Normal 36.0-46.0 [facility] Comment on above: Order Comment: Speci men Type: BLOOD SPECIMENOrdering Facility: [facility] Address: [address] [place] [address] Performed By: #### 5 7021-8 ####[facility]OSPITALJESSABEAVER VALLEY HOSPITAL [id number] [place] [address] [place] Hemoglobin (Bld) [Mass/Vol] 13.9 g/dL Normal 11.5-15.5 [facility] Comment on above: Order Comment: Speci men Type: BLOOD SPECIMENOrdering Facility: [facility] Address: [address] [place] [address] Performed By: #### 5 7021-8 ####[facility] [id number] [place] [address] [place] Immature granulocytes (Bld) [#/Vol] 10*3/uL Normal <0.10 [facility] Comment on above: Order Comment: Speci men Type: BLOOD SPECIMENOrdering Facility: [facility] Address: [address] [place] [address] Performed By: #### 5 7021-8 ####[facility] [id number] [place] [address] [place] Immature granulocytes/100 WBC (Bld) 0.2 % Normal [facility] Comment on above: Order Comment: Speci men Type: BLOOD SPECIMENOrdering Facility: [facility] Address: [address] [place] [address] Performed By: #### 5 7021-8 ####[facility] [id number] [place] [address] [place] Lymphocytes (Bld) [#/Vol] 2.97 10*3/uL Normal 1.00-4.00 [facility] Comment on above: Order Comment: Speci men Type: BLOOD SPECIMENOrdering Facility: [facility] Address: [address] [place] [address] Performed By: #### 5 7021-8 ####[facility] MILADYSWJESSALIA [id number] [place] [address] [place] Lymphocytes/100 WBC (Bld) 34.5 % Normal [facility] Comment on above: Order Comment: Speci men Type: BLOOD SPECIMENOrdering Facility: [facility] Address: [address] [place] [address] Performed By: #### 5 7021-8 ####[facility] HOSPITALJESSALIA [id number] [place] [address] [place] MCH (RBC) [Entitic mass] 33.3 pg Normal 26.0-34.0 [facility] Comment on above: Order Comment: Speci men Type: BLOOD SPECIMENOrdering Facility: [facility] Address: [address] [place] [address] Performed By: #### 5 7021-8 ####[facility]OSPITALJESSABEAVER VALLEY [facility] [id number] [place] [address] [place] MCHC (RBC) [Mass/Vol] 34.9 g/dL Normal 30.5-36.0 [facility] Comment on above: Order Comment: Speci men Type: BLOOD SPECIMENOrdering Facility: [facility] Address: [address] [place] [address] Performed By: #### 5 7021-8 ####[facility] HOSPITALJESSAA [id number] [place] [address] [place] MCV (RBC) [Entitic vol] 95.2 fL Normal 80.0-100.0 [facility] Comment on above: Order Comment: Speci men Type: BLOOD SPECIMENOrdering Facility: [facility] Address: [address] [place] [address] Performed By: #### 5 7021-8 ####[facility]OSPITALNCLI [id number] [place] [address] [place] Monocytes (Bld) [#/Vol] 0.43 10*3/uL Normal <0.87 [facility] Comment on above: Order Comment: Speci men Type: BLOOD SPECIMENOrdering Facility: [facility] Address: [address] [place] [address] Performed By: #### 5 7021-8 ####[facility] CLINICLIA [id number] [place] [address] [place] Monocytes/100 WBC (Bld) 5.0 % Normal [facility] Comment on above: Order Comment: Speci men Type: BLOOD SPECIMENOrdering Facility: [facility] Address: [address] [place] [address] Performed By: #### 5 7021-8 ####[facility] [id number] [place] [address] [place] Neutrophils (Bld) [#/Vol] 5.07 10*3/uL Normal 1.45-7.50 [facility] Comment on above: Order Comment: Speci men Type: BLOOD SPECIMENOrdering Facility: [facility] Address: [address] [place] [address] Performed By: #### 5 7021-8 ####[facility]A [id number] [place] [address] [place] Neutrophils/100 WBC (Bld) 58.8 % Normal [facility] Comment on above: Order Comment: Speci men Type: BLOOD SPECIMENOrdering Facility: [facility] Address: [address] [place] [address] Performed By: #### 5 7021-8 ####[facility]ENTERA [id number] [place] [address] [place] Nucleated RBC (Bld) [#/Vol] 10*3/uL Normal <0.01 [facility] Comment on above: Order Comment: Speci men Type: BLOOD SPECIMENOrdering Facility: [facility] Address: [address] [place] [address] Performed By: #### 5 7021-8 ####[facility] MILADYSGLORIA [id number] [place] [address] [place] Nucleated RBC/100 WBC (Bld) [Ratio] 0.0 /100 WBC Normal [facility] Comment on above: Order Comment: Speci men Type: BLOOD SPECIMENOrdering Facility: [facility] Address: [address] [place] [address] Performed By: #### 5 7021-8 ####[facility] HOSPITALNCFRANCA [id number] [place] [address] [place] Platelet mean volume (Bld) [Entitic vol] 9.2 fL Normal 9.0-12.7 [facility] Comment on above: Order Comment: Speci men Type: BLOOD SPECIMENOrdering Facility: [facility] Address: [address] [place] [address] Performed By: #### 5 7021-8 ####[facility] CENTERRodri [id number] [place] [address] [place] Platelets (Bld) [#/Vol] 280 10*3/uL Normal 150-400 [facility] Comment on above: Order Comment: Speci men Type: BLOOD SPECIMENOrdering Facility: [facility] Address: [address] [place] [address] Performed By: #### 5 7021-8 ####[facility] CLINICLI [id number] [place] [address] [place] RBC (Bld) [#/Vol] 4.18 10*6/uL Normal 3.90-5.20 [facility] Comment on above: Order Comment: Speci men Type: BLOOD SPECIMENOrdering Facility: [facility] Address: [address] [place] [address] Performed By: #### 5 7021-8 ####[facility] HOOKTOWNCLIA [id number] [place] [address] [place] WBC (Bld) [#/Vol] 8.62 10*3/uL Normal 3.70-11.00 [facility] Comment on above: Order Comment: Speci men Type: BLOOD SPECIMENOrdering Facility: [facility] Address: [address] [place] [address] Performed By: #### 5 7021-8 ####[facility]PITALTANO RIGGSWNCLIA [id number] [address] [place] CNOVon 01-01-2025 CNOV Office Visit (ENWSTR ) [place] ([id number]) 2000 F CHT Date Time Provider Department 01/01/25 8:45 AM PAIGE MULLER ENWSTR During your visit today, we recorded the following information about you: Pulse Blood pressure Weight 81/minute 123/85 137.4 kg Mónica Casiano MA 01/01/2025 9:01 AM Signed Paige Muller APRN.ELECTRICAL HARDWARE ENGINEER 01/01/2025 9:01 AM Signed OFFICE VISIT PROGRESS [...] mg. fluticas (more content not included)... Normal [facility] metabolic 2000 panelOrdered By: Jayleen Wilks on 01-01-2025 Albumin [Mass/Vol] 4.3 g/dL 3.9 - 4.9 g/dL [facility] ALP [Catalytic activity/Vol] 67 U/L 34 - 123 U/L [facility] ALT [Catalytic activity/Vol] 59 U/L High 7 - 38 U/L [facility] Anion gap [Moles/Vol] 11 mmol/L 8 - 15 mmol/L [facility] AST [Catalytic activity/Vol] 41 U/L High 13 - 35 U/L [facility] Bilirubin [Mass/Vol] 0.3 mg/dL 0.2 - 1 .3 mg/dL [facility] Calcium [Mass/Vol] 9.6 mg/dL 8.5 - 10. 2 mg/dL [facility] Chloride [Moles/Vol] 103 mmol/L 98 - 10 7 mmol/L [facility] CO2 [Moles/Vol] 27 mmol/L 22 - 30 mmol/L [facility] Creatinine [Mass/Vol] 0.64 mg/dL 0.58 - 0.96 mg/dL [facility] GFR/1.73 sq M.predicted among non-blacks MDRD (S/P/Bld) [Vol rate/Area] 125 mL/min/{1.73_m2} - PINF [facility] Comment on above: Estimated Glomerular Filtration Rate [...] 264 mg/dL High 74 - 99 mg/dL [facility] Comment on above: The [place] Diabete s Association (ADA) provides guidance for [...] Standards of Medical Care in Diabetes 2016, [place] Diabetes Association. Diabetes Care. 2016.39(Suppl 1). Interpretation and review of laboratory results Abnormal [facility] Potassium [Moles/Vol] 4.1 mmol/L 3.7 - 5.1 mmol/L [facility] Protein [Mass/Vol] 7 g/dL 6.3 - 8.0 g/dL [facility] Sodium [Moles/Vol] 141 mmol/L 136 - 144 mmol/L [facility] Urea nitrogen [Mass/Vol] 10 mg/dL 7 - 21 mg/dL [facility] Comprehensive metabolic 2000 panelon 01-01-2025 Albumin [Mass/Vol] 4.3 g/dL Normal 3.9-4.9 [facility] Comment on above: Order Comment: Speci men Type: BLOOD SPECIMENOrdering Facility: [facility] Address: [address] [place] [address] Performed By: #### 2 4323-8 ####[facility] [id number] [place] [address] [place] ALP [Catalytic activity/Vol] 67 U/L Normal 34-123 [facility] Comment on above: Order Comment: Speci men Type: BLOOD SPECIMENOrdering Facility: [facility] Address: [address] [place] [address] Performed By: #### 2 4323-8 ####[facility] [id number] [place] [address] [place] ALT [Catalytic activity/Vol] 59 U/L High 7-38 [facility] Comment on above: Order Comment: Speci men Type: BLOOD SPECIMENOrdering Facility: [facility] Address: [address] [place] [address] Performed By: #### 2 4323-8 ####[facility] CENTERWNCLIA [id number] [place] [address] [place] Anion gap [Moles/Vol] 11 mmol/L Normal 8-15 [facility] Comment on above: Order Comment: Speci men Type: BLOOD SPECIMENOrdering Facility: [facility] Address: [address] [place] [address] Performed By: #### 2 4323-8 ####[facility] CLINICLIA [id number] [place] [address] [place] AST [Catalytic activity/Vol] 41 U/L High 13-35 [facility] Comment on above: Order Comment: Speci men Type: BLOOD SPECIMENOrdering Facility: [facility] Address: [address] [place] [address] Performed By: #### 2 4323-8 ####[facility] CENTERA [id number] [place] [address] [place] Bilirubin [Mass/Vol] 0.3 mg/dL Normal 0.2-1.3 [facility] Comment on above: Order Comment: Speci men Type: BLOOD SPECIMENOrdering Facility: [facility] Address: [address] [place] [address] Performed By: #### 2 4323-8 ####[facility]OSPITALNCLIA [id number] [place] [address] [place] Calcium [Mass/Vol] 9.6 mg/dL Normal 8.5-10.2 [facility] Comment on above: Order Comment: Speci men Type: BLOOD SPECIMENOrdering Facility: [facility] Address: [address] [place] [address] Performed By: #### 2 4323-8 ####[facility] CLINICLIA [id number] [place] [address] [place] Chloride [Moles/Vol] 103 mmol/L Normal 98-107 [facility] Comment on above: Order Comment: Speci men Type: BLOOD SPECIMENOrdering Facility: [facility] Address: [address] [place] [address] Performed By: #### 2 4323-8 ####[facility] [id number] [place] [address] [place] CO2 [Moles/Vol] 27 mmol/L Normal 22-30 [facility] Comment on above: Order Comment: Speci men Type: BLOOD SPECIMENOrdering Facility: [facility] Address: [address] [place] [address] Performed By: #### 2 4323-8 ####[facility] [id number] [place] [address] [place] Creatinine [Mass/Vol] 0.64 mg/dL Normal 0.58-0.96 [facility] Comment on above: Order Comment: Speci men Type: BLOOD SPECIMENOrdering Facility: [facility] Address: [address] [place] [address] Performed By: #### 2 4323-8 ####[facility] [id number] [address] Creatinine and Glomerular filtration rate.predicted panel (S/P/Bld) 125 mL/min/1.73m??? Normal >=60 [facility] Comment on above: Order Comment: Speci men Type: BLOOD SPECIMENOrdering Facility: [facility] Address: [address] [place] [address] Result Comment: Lizzeth mated Glomerular Filtration Rate [...] actual GFR. Performed By: #### 2 4323-8 ####[facility] MED[facility] CENTERWNCLIRodri [id number] [place] [address] [place] Glucose [Mass/Vol] 264 mg/dL High 74-99 [facility] Comment on above: Order Comment: Yoanna cuba Type: BLOOD SPECIMENOrdering Facility: [facility] Address: [address] [place] [address] Result Comment: The [place] Diabetes Association (ADA) provides guidance for cutoff [...] Standards of Medical Care in Diabetes 2016, [place] Diabetes Association. Diabetes Care. 2016.39(Suppl 1). Performed By: #### 2 4323-8 ####[facility] HOSPITALNCLIA [id number] [place] [address] [place] Potassium [Moles/Vol] 4.1 mmol/L Normal 3.7-5.1 [facility] Comment on above: Order Comment: Yoanna cuba Type: BLOOD SPECIMENOrdering Facility: [facility] Address: [address] [place] [address] Performed By: #### 2 4323-8 ####[facility] HOSPITALNCLIA [id number] [place] [address] [place] Protein [Mass/Vol] 7.0 g/dL Normal 6.3-8.0 [facility] Comment on above: Order Comment: Speci men Type: BLOOD SPECIMENOrdering Facility: [facility] Address: [address] [place] [address] Performed By: #### 2 4323-8 ####[facility] [id number] [place] [address] [place] Sodium [Moles/Vol] 141 mmol/L Normal 136-144 [facility] Comment on above: Order Comment: Speci men Type: BLOOD SPECIMENOrdering Facility: [facility] Address: [address] [place] [address] Performed By: #### 2 4323-8 ####[facility] [id number] [place] [address] [place] Urea nitrogen [Mass/Vol] 10 mg/dL Normal 7-21 [facility] Comment on above: Order Comment: Speci men Type: BLOOD SPECIMENOrdering Facility: [facility] Address: [address] [place] [address] Performed By: #### 2 4323-8 ####[facility] [id number] [place] [address] [place] HbA1c (Bld)on 01-01-2025 Average glucose Estimated from glycated hemoglobin (Bld) [Mass/Vol] 171 mg/dL Normal [facility] Comment on above: Order Comment: Speci men Type: BLOOD SPECIMENOrdering Facility: [facility] Address: [address] [place] [address] Result Comment: eAG: (Estimated average glucose) is a calculated value from HgbA1c and is sales representative metals of the average blood glucose level in the last 2-3 month period. Performed By: #### 5 5454-3 ####[facility] LABCLIA [id number] [place] [address] [place] HbA1c (Bld) [Mass fraction] 7.6 % High 4.3-5.6 [facility] Comment on above: Order Comment: Speci bereket Type: BLOOD SPECIMENOrdering Facility: [facility] Address: [address] [place] [address] Result Comment: [place] Diabetes Association guidelines indicate that patients with HgbA1c in the range 5.7-6.4% are at increased risk for development of diabetes, and intervention by lifestyle modification may be beneficial. HgbA1c greater or equal to 6.5% is considered diagnostic of diabetes. Performed By: #### 5 5454-3 ####[facility] LABCLIA [id number] [place] [address] [place] LIPID PANEL, NONFASTINGon Cholesterol [Mass/Vol] 178 mg/dL Normal <200 [facility] Comment on above: Order Comment: Yoanna bereket Type: BLOOD SPECIMENOrdering Facility: [facility] Address: [address] [place] [address] Result Comment: <200 mg/dL, Desirable 200-239 mg/dL, Borderline high >239 mg/dL, High Performed By: #### L IPNF, 4-7, 3016-3 ####[facility] LABCLIA [id number] [place] [address] [place] HDL CHOLESTEROL, NF 32 mg/dL Low >39 [facility] Comment on above: Order Comment: Emeterioi bereket Type: BLOOD SPECIMENOrdering Facility: [facility] Address: [address] [place] [address] Result Comment: 40-5 9 mg/dL, Acceptable >59 mg/dL, High: Negative risk factor for coronary heart disease <40 mg/dL, Low: Positive risk factor for coronary heart disease Performed By: #### L IPNF, 4-7, 3016-3 ####[facility] LABCLIA [id number] [facility] O50YLPLKUTMN, [facility]95 [place] LDL CHOLESTEROL CALCULATED, NF 120 mg/dL High <100 [facility] Comment on above: Order Comment: Speci men Type: BLOOD SPECIMENOrdering Facility: [facility] Address: [address] [place] [address] Result Comment: <100 mg/dL, Optimal 100-129 mg/dL, Near optimal/above optimal 130-159 mg/dL, Borderline high 160-189 mg/dL, High >189 mg/dL, Very high Secondary prevention optimal LDL Cholesterol levels are recommended to be <70 mg/dL LDL cholesterol is calculated using the Cardenas-NIH equation. Performed By: #### L KINSEY, 3023-, 3015-3 ####[facility] LABIA [id number] [place] [address] [place] LDL/HDL RATIO, NF 3.75 mg/dL High <2.[address] [facility] Comment on above: Order Comment: Yoanna cuba Type: BLOOD SPECIMENOrdering Facility: [facility] Address: [address] [place] [address] Result Comment: Refcyn vargas: 1. National Cholesterol Education Program ATP III Guideline At-A-Glance Quick Desk Reference: National Heart, Lung, and Blood [place]. National Institutes of Health. 2001: NIH Publication No. 01-3305. 2. An International Atherosclerosis Society position paper: global recommendations for the management of dyslipidemia: executive summary, Atherosclerosis. 2014: 232(2):410-413. Performed By: #### L KINSEY, 3024-03, 3015-11 ####[facility] LABIA [id number] [address] [place] NON HDL CHOL, NF 146 mg/dL High <130 [facility] Comment on above: Order Comment: Yoanna cuba Type: BLOOD SPECIMENOrdering Facility: [facility] Address: [address] [place] [address] Result Comment: <130 mg/dL, Optimal 130-159 mg/dL, Near optimal/above optimal 160-189 mg/dL, Borderline high 190-219 mg/dL, High >219 mg/dL, Very high Secondary prevention optimal non HDL Cholesterol levels are recommended to be <100 mg/dL Performed By: #### L KINSEY, 3024-03, 3016-3 ####[facility] LABCLIA [id number] [address] [address] [place] T CHOL/HDL RATIO NF 5.56 mg/dL High <5.10 [facility] Comment on above: Order Comment: Speci men Type: BLOOD SPECIMENOrdering Facility: [facility] Address: [address] [place] [address] Performed By: #### L IPNF, 3024-03, 3 ####[facility] LABCLIA [id number] [address] [address] [place] TRIGLYCERIDES, NF 147 mg/dL Normal <[address] [facility] Comment on above: Order Comment: Speci men Type: BLOOD SPECIMENOrdering Facility: [facility] Address: [address] [place] [address] Result Comment: <150 mg/dL, Normal 150-199 mg/dL, Borderline high 200-499 mg/dL, High >499 mg/dL, Very high Performed By: #### L IPNF, 3024-03, 3 ####[facility] LABCLIA [id number] [place] [address] [place] VLDL CHOLESTEROL, NF 25 mg/dL Normal <30 [facility] Comment on above: Order Comment: Speci men Type: BLOOD SPECIMENOrdering Facility: [facility] Address: [address] [place] [address] Performed By: #### L IPNF, 3024-03, 3 ####[facility] LABCLIA [id number] [address] [address] [place] T4 Free SerPl-mCncon 025 Free T4 [Mass/Vol] 1.0 ng/dL Normal 0.9-1.7 [facility] Comment on above: Order Comment: Speci men Type: BLOOD SPECIMENOrdering Facility: [facility] Address: [address] [place] [address] Performed By: #### L IP, 3024-7, 3016-3 ####[facility] LABIA [id number] [place] [id number] [place] TSH SerPl-aCncon 01-01-2025 TSH Qn 3.010 m[IU]/L Normal 0.270-4.200 [facility] Comment on above: Order Comment: Speci men Type: BLOOD SPECIMENOrdering Facility: [facility] Address: [address] [place] [address] [place] [address] Result Comment: If t he patient is , TSH reference range varies by gestational period: First Trimester (weeks 9-12): 0.180-2.990 mIU/L Second Trimester: 0.110-3.980 mIU/L Third Trimester: 0.480-4.710 mIU/L Ulices Ramsey et al. A Practical Approach for the Verifications and Determination of Site- and Trimester-Specific Reference Intervals for Thyroid Function tests in . Thyroid, 2019:29:3:412-420. Robbie Addison, et al. 2017 Guidelines of the [place] Thyroid Association for the Diagnosis and Management of Thyroid Disease during and the . Thyroid, 2017:27:3:315-389. Performed By: #### L IPROJAS, 3024-7, 3016-3 ####[facility] LABIA [id number] [address] [address] [place] Influenza virus A and B and SARS-CoV-2 (COVID-19) and Respiratory syncytial virus RNAOrdered By: Eliazar Amos on 11-15-2024 SARS-CoV-2 (COVID-19) RNA GREYSON+probe Ql (Unsp spec) [facility] Internal Medicine Office Vis iton 11-15-2024 Internal Medicine Office Visit [facility] [address] [place] [address] [address] [place], [place] [address] OFFICE VISIT Date of Service: 11/15/24 MR#: [id number] Acct: [id number] Name: KATHYDINORACASI DIAMOND Rep #: [id number] : 2000 Provider: Dr. Eliazar acosta MD Age/Sex: 23/F Location: [facility] Status: Signed Intake Vital Signs 07/19/24 10:33 [...] TO LOSE WEIGHT BEFORE BREAST REDUCTION SURGERY [facility] Medical History (Updated 11/15/24 @ 11:09 by [...] daily sea (more content not included)... Normal [facility] Laboratory - Hematology and Cell countsOrdered By: Eliazar Amos on 11-15-2024 HbA1c (Bld) [Mass fraction] 7.2 % High 4.2-6.3 [facility] M100.678on 11-15-2024 M100.678 SARS-CoV-2 (COVID 19 ) Negative INFLUENZA A Negative INFLUENZA B Negative RSV PCR Negative Normal [facility] Comment on above: Performed By: #### M 100.678 #### [facility] [address] [place], [address] [facility] 11-07-2024 [facility] Telephone (STED) SUGEY WEST ([id number]) 2000 F T Date Time Provider Department 11/07/24 PAIGE MULLER STED During your visit today, we recorded the following information about you: Madison Carlisle MA 11/07/2024 8:59 AM Signed Left patient message to let her know she was scheduled at the [place] office,and that we are 2 1/2 hours away I said she could reschedule with the [place] office.I asked that she call and confirm [...] test TWO TIMES DAILY - Blood-Glucose Sensor (CamioCamSTYLE JAZMIN 3 SENSOR PLUS) osito CHANGE SENSOR [...] BID, # 30 gram(s), 0 Refill(s), Pharmacy: [id number], 177.5, cm, 03/13/23 10:35:00 EDT, Height, 117.5 - SUMAtriptan (IMITREX) 50 mg tablet TAKE 1 TABLET BY MOUTH EVERY 2 HOURS NEEDED FOR HEADACHE. MAX DOSE OF 2 TABLETS A DAY - cyclobenzaprine (FLEXERIL) 10 mg tablet Take 10 mg by mouth three times daily. prn - Insulin [place], Disposable, (BD ULTRAFINE III MINI PEN) 31 gauge x 3/16" Uses 4 per day with insulin injection [...] Status:Closed by MADISON CARLISLE on 11/07/24 Normal [facility] Plastic Surgery Visit Report on 11-06-2024 Plastic Surgery Visit Report [facility] Plastic Reconstructive Surgery [address] [facility], [address] [place] [address] OFFICE VISIT Date of Service: 11/06/24 MR#: [id number] Acct: [id number] Name: SUGEY WEST Rep #: [id number] : 2000 Provider: Dr. Delores park MD Age/Sex: 23/F Location: [facility] Status: Signed Intake Vital Signs 10/14/24 22:15 [...] subcutaneous pen injector (Trulicity) lancets 30 gauge (John Schaferica #100 ea 11/06/24 11/06/24 History Plus Lancet) lorazepam 1 mg capsule,extended 1 mg PO QDAY 11/06/24 11/06/24 His tory release 24 hr Have you fallen in the past year?: No Nurse's Note: pt here with friend for josette breast reduction consult, pt admits to vaping. [facility] Medical History Poor appetite Wears glasses Depression [...] of physical activity (more content not included)... [facility] Tele[facility] (ENJAVIERTR) KATHYSUGEY ([id number]) 2000 [facility] Date Time Provider Department 10/28/24 PAIGE MULLER During your visit today, we [...] Artis Jennifer, MA 10/29/2024 2:33 PM Signed PA [id number] started. Patient also requesting MOUNJARO to replace trulicity. Please advise. NARDA Artis Dianne C, APRN.[facility] 10/29/2024 2:54 PM Signed Patient's request for [...] and notify patient. VICKI Pink Dianne C, APRN.[facility] 10/29/2024 2:54 PM Signed Addended by: PAIGE MULLER on: 10/29/2024 02:54 PM Modules accepted: Orders Stephenie, Mónica, MA 10/29/2024 3:16 PM Signed ALEJANDRA ramon [...] two or more drugs concomitantly per ADA ([place] Diabetes Association) guidelines and; 3. Member has documented adherence and appropriate dose escalation (must achieve maximum recommended dose or document that maximum recommended dose is not tolerated or is clinically inappropriate) and; 4. Documentation includes a patient specific A1C goal if less than 7% and must include current A1C (within the last 6 months). The [facility] Policy for Medical Necessity as posted on the [facility] website and [facility] Preferred Drug List criteria were reviewed and per [place] Administrative Code Rule 5160-1-01 (C) and (B), [...] 1 ta (more content not included)... Normal [facility] Bedside Glucoseon 10-15-2024 FINGERSTICK GLU 88 mg/dL Normal 74-106 [facility] Comment on above: Result Comment: RICA OBREGON OF PATIENT CARE PER NURSING PROTOCOL Performed By: #### M 100.674 #### [facility] [address] [place], [address] [facility] deOrdered By: Shlomo Santizo on 10-15-2024 Bedside Glucose (Misc Panel) 88 mg/dL 74-106 [facility] Comment on above: MANAGEMENT OF PATIEN T CARE PER NURSING PROTOCOL Glucose [Mass/Vol] 88 mg/dL 74-106 [facility] Comment on above: MANAGEMENT OF PATIEN T CARE PER NURSING PROTOCOL 12 Lead EKGon 10-14-2024 12 Lead EKG [facility] Cardiovascular Services [address] [place] [address] 12 Lead EKG 10/14/24 2306 MR#: [id number] Acct: [id number] Name: SUGEY WEST Rep #: [id number] : 2000 From: George Stone MD Attending [...] Otherwise normal ECG Confirmed by George Stone ([id number]), desk editor ROB HATCH ([id number]) on 10/15/2024 10:00:34 AM Referred By: Confirmed By: George Stone 10/15/24999 Date George Stoen MD CC: Dr. Eliazar Amos MD; Dr. Shlomo Santizo DO Signed Normal [facility] Absolute lymphocyte countOrd ered By: Shlomo Santizo on 10-14-2024 Lymphocytes Auto (Unsp spec) [#/Vol] 3.85 10*3/uL 0.83-4.51 [facility] Absolute neutrophil countOrd ered By: Shlomo Santizo on 10-14-2024 Neutrophils (Bld) [#/Vol] 5.5 10*3/uL 2.0-7.7 [facility] Automated lymphocyte count a s percentage of total leukocytesOrdered By: Shlomo Santizo on 10-14-2024 Lymphocytes/100 WBC Auto (Unsp spec) 38.9 % 19-41 [facility] Basic Metabolic Profile (BMP )on 10-14-2024 BUN/CRE 12.6 RATIO Normal 06-23 [facility] Comment on above: Order Comment: 'TROP ' Serial specimen #1, #2 or #3: 1 Performed By: #### L 501.9520, L500.2500, L100.0100, L501.4020, L506.0400, L501.37996 ####[facility] [address] [place], [address] CA,Total 8.9 mg/dL Normal 8.5-10.1 [facility] Comment on above: Order Comment: 'TROP ' Serial specimen #1, #2 or #3: 1 Performed By: #### L 501.9520, L500.2500, L100.0100, L501.4020, L506.0400, L501.59416 ####[facility] [address] [place], [address] Chloride [Moles/Vol] 108 mmol/L High 98-107 [facility] Comment on above: Order Comment: 'TROP ' Serial specimen #1, #2 or #3: 1 Performed By: #### L 501.9520, L500.2500, L100.0100, L501.4020, L506.0400, L501.01220 ####[facility] [address] [place], [address] CO2 [Moles/Vol] 30.0 mmol/L Normal 21.0-32.0 [facility] Comment on above: Order Comment: 'TROP ' Serial specimen #1, #2 or #3: 1 Performed By: #### L 501.9520, L500.2500, L100.0100, L501.4020, L506.0400, L501.59222 ####[facility] [address] [place], [address] Creatinine [Mass/Vol] 0.72 mg/dL Normal 0.55-1.02 [facility] Comment on above: Order Comment: 'TROP ' Serial specimen #1, #2 or #3: 1 Result Comment: The validity of the calculated GFR GFRAA in patients over 70 years has not been determined. Clinical correlation is essential. Performed By: #### L 501.9520, L500.2500, L100.0100, L501.4020, L506.0400, L501.99399 ####[facility] [address] [place], [address] ECRCL 189.31 ml/min Normal [facility] Comment on above: Order Comment: 'TROP ' Serial specimen #1, #2 or #3: 1 Performed By: #### L 501.9520, L500.2500, L100.0100, L501.4020, L506.0400, L501.66956 ####[facility] [address] [place], [address] EST GFR - AA 127 mL/min Normal >60 [facility] Comment on above: Order Comment: 'TROP ' Serial specimen #1, #2 or #3: 1 Result Comment: Afri can [place] GFR Calc Performed By: #### L 501.9520, L500.2500, L100.0100, L501.4020, L506.0400, L501.58745 ####[facility] [address] [place], [address] GAP 5 Normal 5-15 [facility] Comment on above: Order Comment: 'TROP ' Serial specimen #1, #2 or #3: 1 Performed By: #### L 501.9520, L500.2500, L100.0100, L501.4020, L506.0400, L501.68878 ####[facility] [address] [place], [address] GFR/1.73 sq M.predicted among non-blacks MDRD (S/P/Bld) [Vol rate/Area] 105 mL/min/{1.73_m2} Normal >60 [facility] Comment on above: Order Comment: 'TROP ' Serial specimen #1, #2 or #3: 1 Result Comment: Non- GFR Calc Performed By: #### L 501.9520, L500.2500, L100.0100, L501.4020, L506.0400, L501.85770 ####[facility] [address] [place], [address] Glucose [Mass/Vol] 108 mg/dL High 74-106 [facility] Comment on above: Order Comment: 'TROP ' Serial specimen #1, #2 or #3: 1 Result Comment: Fast ing Glucose result from 100 to 125 mg/dL suggests IMPAIRED HOMEOSTASIS per A.D.A. criteria. Performed By: #### L 501.9520, L500.2500, L100.0100, L501.4020, L506.0400, L501.45585 ####[facility] [address] [place], [address] Potassium [Moles/Vol] 3.6 mmol/L Normal 3.5-5.1 [facility] Comment on above: Order Comment: 'TROP ' Serial specimen #1, #2 or #3: 1 Performed By: #### L 501.9520, L500.2500, L100.0100, L501.4020, L506.0400, L501.07353 ####[facility] [address] [place], [address] Sodium [Moles/Vol] 143 mmol/L Normal 136-145 [facility] Comment on above: Order Comment: 'TROP ' Serial specimen #1, #2 or #3: 1 Performed By: #### L 501.9520, L500.2500, L100.0100, L501.4020, L506.0400, L501.80889 ####[facility] [address] [place], [address] Urea nitrogen [Mass/Vol] 9 mg/dL Normal 7-18 [facility] Comment on above: Order Comment: 'TROP ' Serial specimen #1, #2 or #3: 1 Performed By: #### L 501.9520, L500.2500, L100.0100, L501.4020, L506.0400, L501.81687 ####[facility] [address] [place], [address] Basophil percentageOrdered B y: Shlomo Santizo on 10-14-2024 Basophils/100 WBC (Bld) 0.2 % 0-1 [facility] Bedside Glucoseon 10-14-2024 FINGERSTICK GLU 98 mg/dL Normal 74-106 [facility] Comment on above: Result Comment: RICA OBREGON OF PATIENT CARE PER NURSING PROTOCOL Performed By: #### L 501.080 #### [facility] [address] [place], [address] Blood urea nitrogen (BUN)/cr eatinine ratioOrdered By: Shlomo Santizo on 10-14-2024 Urea nitrogen/Creatinine [Mass ratio] 12.6 mg/mg 10-20 [facility] CBC W/Diff, Automatedon 10-05 Absolute Lymph 3.85 X10 3/uL Normal 0.83-4.51 [facility] Comment on above: Performed By: #### L 501.9520, L500.2500, L100.0100, L501.4020, L506.0400, L501.51954 ####[facility] [address] [place], [address] Absolute Neut 5.5 X10 3/uL Normal 2.0-7.7 [facility] Comment on above: Performed By: #### L 501.9520, L500.2500, L100.0100, L501.4020, L506.0400, L501.03853 ####[facility] [address] [place], [address] Basophils/100 WBC (Bld) 0.2 % Normal 0-1 [facility] Comment on above: Performed By: #### L 501.9520, L500.2500, L100.0100, L501.4020, L506.0400, L501.17794 ####[facility] [address] [place], [address] Eosinophils/100 WBC (Bld) 1.2 % Normal 0-5 [facility] Comment on above: Performed By: #### L 501.9520, L500.2500, L100.0100, L501.4020, L506.0400, L501.41621 ####[facility] [address] [place], [address] Erythrocyte distribution width (RBC) [Ratio] 12.3 % Normal 11.6-14.6 [facility] Comment on above: Performed By: #### L 501.9520, L500.2500, L100.0100, L501.4020, L506.0400, L501.31750 ####[facility] [address] [place], [address] Hematocrit (Bld) [Volume fraction] 35.3 % Low 37-47 [facility] Comment on above: Performed By: #### L 501.9520, L500.2500, L100.0100, L501.4020, L506.0400, L501.31058 ####[facility] [address] [place], [address] Hemoglobin (Bld) [Mass/Vol] 12.5 g/dL Normal 12.0-15.0 [facility] Comment on above: Performed By: #### L 501.9520, L500.2500, L100.0100, L501.4020, L506.0400, L501.32667 ####[facility] [address] [place], [address] IG% 0.300 Normal 0.0-0.9 [facility] Comment on above: Result Comment: IG% - Immature Granulocytes (promyelocytes, myelocytes and metamyelocytes) > 1% indicates that a LEFT SHIFT is Present. Performed By: #### L 501.9520, L500.2500, L100.0100, L501.4020, L506.0400, L501.57757 ####[facility] [address] [place], [address] Lymphocytes/100 WBC (Bld) 38.9 % Normal 19-41 [facility] Comment on above: Performed By: #### L 501.9520, L500.2500, L100.0100, L501.4020, L506.0400, L501.97229 ####[facility] [address] [place], [address] MCH (RBC) [Entitic mass] 33.1 pg High 27.0-32.0 [facility] Comment on above: Performed By: #### L 501.9520, L500.2500, L100.0100, L501.4020, L506.0400, L501.62013 ####[facility] [address] [place], [address] MCHC (RBC) [Mass/Vol] 35.4 g/dL Normal 32-36 [facility] Comment on above: Performed By: #### L 501.9520, L500.2500, L100.0100, L501.4020, L506.0400, L501.84975 ####[facility] [address] [place], [address] MCV (RBC) [Entitic vol] 93.4 fL Normal 81-99 [facility] Comment on above: Performed By: #### L 501.9520, L500.2500, L100.0100, L501.4020, L506.0400, L501.28424 ####[facility] [address] [place], [address] Monocytes/100 WBC (Bld) 3.5 % Normal 0-10 [facility] Comment on above: Performed By: #### L 501.9520, L500.2500, L100.0100, L501.4020, L506.0400, L501.11767 ####[facility] [address] [place], [address] Neutrophils/100 WBC (Bld) 55.9 % Normal 47-70 [facility] Comment on above: Performed By: #### L 501.9520, L500.2500, L100.0100, L501.4020, L506.0400, L501.01489 ####[facility] [address] [place], [address] Nucleated RBC (Bld) [#/Vol] 0 10*3/uL Normal 0-5 [facility] Comment on above: Performed By: #### L 501.9520, L500.2500, L100.0100, L501.4020, L506.0400, L501.21314 ####[facility] [address] [place], [address] Platelet mean volume (Bld) [Entitic vol] 8.4 fL Normal 6.2-12.0 [facility] Comment on above: Performed By: #### L 501.9520, L500.2500, L100.0100, L501.4020, L506.0400, L501.05410 ####[facility] [address] [place], [address] Platelets (Bld) [#/Vol] 273 10*3/uL Normal 150-450 [facility] Comment on above: Performed By: #### L 501.9520, L500.2500, L100.0100, L501.4020, L506.0400, L501.58281 ####[facility] [address] [place], [address] RBC (Bld) [#/Vol] 3.78 10*6/uL Low 4.2-5.4 [facility] Comment on above: Performed By: #### L 501.9520, L500.2500, L100.0100, L501.4020, L506.0400, L501.88290 ####[facility] [address] [place], [address] RDW SD 42.0 fl Normal 35.1-43.9 [facility] Comment on above: Performed By: #### L 501.9520, L500.2500, L100.0100, L501.4020, L506.0400, L501.31476 ####[facility] [address] [place], [address] WBC (Bld) [#/Vol] 9.9 10*3/uL Normal 4.4-11.0 [facility] Comment on above: Performed By: #### L 501.9520, L500.2500, L100.0100, L501.4020, L506.0400, L501.82207 ####[facility] [address] [place], [address] Carbon dioxide measurementOr dered By: Shlomo Santizo on 10-14-2024 CO2 [Moles/Vol] 30.0 mmol/L 21.0-32.0 [facility] Chest PA and Lateralon 10-14 Chest PA and Lateral [facility] Imaging Services [address] [place] [address] Chest PA and Lateral MR#: [id number] Acct: [id number] Name: SUGEY WEST Rep #: [id number] : 2000 F 23 From: Deepak Hyatt DO PCP: Dr. Eliazar Amos MD Status: [facility] ER Study: Chest PA and Lateral Date of Exam: 10/14/24 Exam# [id number] Ordering Dr: Shlomo Santizo DO PROCEDURE: CHEST PA AND LATERAL REASON FOR EXAM: Chest pain. TECHNIQUE: Frontal and lateral views of the chest. COMPARISON: Chest x-ray from 08/12/2022. FINDINGS: Cardiac size and pulmonary vasculature are within normal limits. No consolidation, pleural effusion, or pneumothorax is present. RAD/Chest PA and Lateral IMPRESSION: No acute cardiopulmonary process. Reading Location: [facility] CC: Dr. Eliazar Amos MD; Dr. Shlomo Santizo DO Web Offset Press Feeder: Signed Normal [facility] Chloride measurementOrdered By: Shlomo Santizo on 10-14-2024 Chloride [Moles/Vol] 108 mmol/L High 98-107 [facility] Direct serum free thyroxine (FT4) measurementOrdered By: Shlomo Santizo on 10-14-2024 Free T4 [Mass/Vol] 0.95 ng/dL 0.76-1.46 [facility] Emergency Department Summary on 10-14-2024 Emergency Department Summary [facility] Medical Records Department [address] [place] [address] Emergency Department Summary 10/14/24 MR#: [id number] Acct: [id number] Name: SUGEY WEST Rep #: [id number] : 2000 From: Shlomo Santizo DO PCP: [...] that she got her Trulicity shot yesterday. PFSH PFSH Medical History Poor appetite Wears glasses [...] ROS E (more content not included)... Normal [facility] Eosinophil percentageOrdered By: Shlomo Santizo on 10-14-2024 Eosinophils/100 WBC (Bld) 1.2 % 0-5 [facility] [facility] Erythrocyte distribution wid th ratioOrdered By: Shlomo Santizo on 10-14-2024 Erythrocyte distribution width (RBC) [Ratio] 12.3 % 11.6-14.6 [facility] Erythrocyte distribution wid th standard deviationOrdered By: Shlomo Santizo on 10-14-2024 Erythrocyte distribution width (RBC) [Entitic vol] 42.0 fL 35.1-43.9 [facility] Erythrocyte distribution width (RBC) [Ratio] 42.0 fl 35.1-43.9 [facility] Estimated glomerular filtrat ion rate (GFR) AmericanOrdered By: Shlomo Santizo on 10-14-2024 Estimated GFR (MDRD) Amer 127 mL/min >60 [facility] Comment on above: GFR Calc Estimation of creatinine crow aranceOrdered By: Shlomo Santizo on 10-14-2024 Estimated Creatinine Clearance Calc 189.31 ml/min [facility] Free T3on 10-14-2024 Free T3 [Mass/Vol] 3.4 pg/mL Normal 2.18-3.98 [facility] Comment on above: Order Comment: 'TROP ' Serial specimen #1, #2 or #3: 1 Performed By: #### L 501.9520, L500.2500, L100.0100, L501.4020, L506.0400, L501.87391 ####[facility] [id number] [place], [address] Free J0Aojlnks By: Shlomo flynn on 10-14-2024 Free T3 [Mass/Vol] 3.4 pg/mL 2.18-3.98 [facility] Free Triiodothyronine (T3) pg/dL 3.4 pg/mL 2.18-3.98 [facility] Glomerular filtration rate ( GFR) estimationOrdered By: Slhomo Santizo on 10-14-2024 Estimated GFR (MDRD) Non-Af Amer 105 mL/min >60 [facility] Comment on above: Non- GFR Calc GFR/1.73 sq M.predicted among non-blacks MDRD (S/P/Bld) [Vol rate/Area] 105 mL/min/{1.73_m2} >60 [facility] Comment on above: Non- GFR Calc Glucose measurementOrdered B y: Shlomo Santizo on 10-14-2024 Glucose [Mass/Vol] 108 mg/dL High 74-106 [facility] Comment on above: Fasting Glucose resu lt from 100 to 125 mg/dL suggests IMPAIRED HOMEOSTASIS per A.D.A. criteria. Hematocrit Auto (Bld) [Volum e fraction]Ordered By: Shlomo Santizo on 10-14-2024 Hematocrit (Bld) [Volume fraction] 35.3 % Low 37-47 [facility] Hemoglobin measurementOrdere d By: Shlomo Santizo on 10-14-2024 Hemoglobin (Bld) [Mass/Vol] 12.5 g/dL 12.0-15.0 [facility] Immature granulocytes/100 WB C Auto (Bld)Ordered By: Shlomo Santizo on 10-14-2024 Immature granulocytes/100 WBC (Bld) 0.300 % 0.0-0.9 [facility] Comment on above: IG% - Immature Granu locytes (promyelocytes, myelocytes and metamyelocytes) > 1% indicates that a LEFT SHIFT is Present. Influenza virus A and B and SARS-CoV-2 (COVID-19) and Respiratory syncytial virus RNAOrdered By: Shlomo Santizo on 10-14-2024 SARS-CoV-2 (COVID-19) RNA RGEYSON+probe Ql (Unsp spec) [facility] L501.4020on 10-14-2024 TROPONIN-I HS 5 pg/mL Normal 3.0-54.0 [facility] Comment on above: Order Comment: 'TROP ' Serial specimen #1, #2 or #3: 1 Result Comment: Plea se Note: New Test Units and Gender Specific Reference Ranges. For more information see Policy Stat Procedure [facility] High Sensitivity Troponin (TNIH) and attachments. Performed By: #### L 501.9520, L500.2500, L100.0100, L501.4020, L506.0400, L501.34277 ####[facility] [id number] [place], [address] Lymphocytes Auto (Unsp spec) [#/Vol]Ordered By: Shlomo Santizo on 10-14-2024 Lymphocytes (Bld) [#/Vol] 3.85 10*3/uL 0.83-4.51 [facility] Lymphocytes/100 WBC Auto (Un sp spec)Ordered By: Shlomo Santizo on 10-14-2024 Lymphocytes/100 WBC (Bld) 38.9 % 19-41 [facility] M100.678on 10-14-2024 M100.678 Pending SARS-CoV-2 (COVID 19) Negative INFLUENZA A Negative INFLUENZA B Negative RSV PCR Negative Normal [facility] Comment on above: Performed By: #### M 100.678 #### [facility] [place], [address] MCV (mean corpuscular volume ) determinationOrdered By: Shlomo Santizo on 10-14-2024 MCV (RBC) [Entitic vol] 93.4 fL 81-99 [facility] Mean corpuscular hemoglobin (MCH) determinationOrdered By: Shlomo Santizo on 10-14-2024 MCH (RBC) [Entitic mass] 33.1 pg High 27.0-32.0 [facility] Mean corpuscular hemoglobin concentration (MCHC) determinationOrdered By: Shlomo Santizo on 10-14-2024 MCHC (RBC) [Mass/Vol] 35.4 g/dL 32-36 [facility] Mean platelet volume determi nationOrdered By: Shlomo Santizo on 10-14-2024 Platelet mean volume (Bld) [Entitic vol] 8.4 fL 6.2-12.0 [facility] Monocyte percentageOrdered B y: Shlomo Santizo on 10-14-2024 Monocytes/100 WBC (Bld) 3.5 % 0-10 [facility] Neutrophil percentageOrdered By: Shlomo Santizo on 10-14-2024 Neutrophils/100 WBC (Bld) 55.9 % 47-70 [facility] Nucleated red blood cell per centageOrdered By: Shlomo Santizo on 10-14-2024 Nucleated RBC/100 WBC (Bld) [Ratio] 0 % 0-5 [facility] Platelet countOrdered By: Armando Santizo on 10-14-2024 Platelets (Bld) [#/Vol] 273 10*3/uL 150-450 [facility] Potassium measurementOrdered By: Shlomo Santizo on 10-14-2024 Potassium [Moles/Vol] 3.6 mmol/L 3.5-5.1 [facility] RBC Auto (Bld) [#/Vol]Ordere d By: Shlomo Santizo on 10-14-2024 RBC (Bld) [#/Vol] 3.78 10*6/uL Low 4.2-5.4 [facility] Serum anion gap measurementO rdered By: Shlomo Santizo on 10-14-2024 Anion gap [Moles/Vol] 5 mmol/L 5-15 [facility] Serum or plasma calcium jalyn urement (mass/volume)Ordered By: Shlomo Santizo on 10-14-2024 Calcium [Mass/Vol] 8.9 mg/dL 8.5-10.1 [facility] Serum or plasma creatinine m easurement (mass/volume)Ordered By: Shlomo Santizo on 10-14-2024 Creatinine [Mass/Vol] 0.72 mg/dL 0.55-1.02 [facility] Comment on above: The validity of the calculated GFR & GFRAA in patients over 70 years has not been determined. Clinical correlation is essential. Serum or plasma thyroid stim ulating hormone (TSH) measurement (units/volume)Ordered By: Shlomo Santizo on 10-14-2024 TSH Qn 4.220 uIU/mL High 0.358-3.740 [facility] Serum or plasma urea nitroge n measurement (mass/volume)Ordered By: Shlomo Santizo on 10-14-2024 Urea nitrogen [Mass/Vol] 9 mg/dL 7-18 [facility] Sodium levelOrdered By: Josh Santizo on 10-14-2024 Sodium [Moles/Vol] 143 mmol/L 136-145 [facility] T4 Free Directon 10-14-2024 T4 FREE DIRECT 0.95 ng/dL Normal 0.76-1.46 [facility] Comment on above: Order Comment: 'TROP ' Serial specimen #1, #2 or #3: 1 Performed By: #### L 501.9520, L500.2500, L100.0100, L501.4020, L506.0400, L501.42404 ####[facility] [id number] [place], [place], [id number] TSH QnOrdered By: Shlomo trevino on 10-14-2024 Thyroid Stimulating Hormone (TSH) 4.220 uIU/mL High 0.358-3.740 [facility] Thyroid Stim Hormone (TSH)on 10-14-2024 TSH 4.220 uIU/mL High 0.358-3.740 [facility] Comment on above: Order Comment: 'TROP ' Serial specimen #1, #2 or #3: 1 Performed By: #### L 501.9520, L500.2500, L100.0100, L501.4020, L506.0400, L501.91816 ####[facility] [id number] [place], [address] Troponin IOrdered By: Shlomo Santizo on 10-14-2024 Troponin I 5 pg/mL 3.0-54.0 [facility] Comment on above: Please Note: New Emy t Units and Gender Specific Reference Ranges. For more information see Policy Stat Procedure [facility] High Sensitivity Troponin (TNIH) and attachments. Troponin I High Sensitivity 5 pg/mL 3.0-54.0 [facility] Comment on above: Please Note: New Emy t Units and Gender Specific Reference Ranges. For more information see Policy Stat Procedure [facility] High Sensitivity Troponin (TNIH) and attachments. White blood cell (WBC) count Ordered By: Shlomo Santizo on 10-14-2024 WBC (Bld) [#/Vol] 9.9 10*3/uL 4.4-11.0 [facility] CNPNon 09-24-2024 CNPN Telephone (ENWSTR) SUGEY WEST ([id number]) 2000 F T Date Time Provider Department 09/24/24 PAIGE MULLER ENWSTR During your visit today, we recorded the following information about you: Mónica Casiano MA 09/24/2024 3:42 PM Signed Cover my meds [place] mancia [id number] started. NARDA Artis Brittney, RN 10/31/2024 12:03 PM Signed Paige Muller, FORGING PRESS SETTER UP.[facility] 10/31/2024 12:32 PM Signed Patient's request for [...] BID, # 30 gram(s), 0 Refill(s), Pharmacy: [facility] #[id number], 177.5, cm, 03/13/23 10:35:00 EDT, Height, 117.5 - SUMAtriptan (IMITREX) 50 mg tablet TAKE 1 TABLET BY MOUTH EVERY 2 HOURS NEEDED FOR HEADACHE. MAX DOSE OF 2 TABLETS A DAY - cyclobenzaprine (FLEXERIL) 10 mg tablet Take 10 mg by mouth three times daily. prn - Insulin [place], Disposable, (BD ULTRAFINE III MINI PEN) 31 gauge x 3/16" Uses 4 per day with insulin injection [...] Encounter Status:Closed by MÓNICA CASIANO on 09/24/24 [facility] ED Provider Noteon ED Provider Note [...] Discharge 09/07/2024 10:03:59 PM PATIENT REFERRED TO: [facility] EMERGENCY DEPT [address] [place] [phone] As needed, If symptoms worsen DISCHARGE [...] and ph (more content not included)... Normal [facility] Internal Medicine Office Vis tim 07-19-2024 Internal Medicine Office Visit [facility] [place] [address] OFFICE VISIT Date of Service: 07/19/24 MR#: [id number] Acct: [id number] Name: SUGEY WEST Rep #: [id number] : 2000 Provider: Dr. Eliazar acosta MD Age/Sex: 23/F Location: [facility] Status: Signed Intake Vital Signs 05/03/24 10:08 [...] fu/med refills Chief Complaint: f/u chronic conditions. 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 Normal [facility] 06-26-2024 [facility] Telephone (ENDWST) KATHYSUGEY ([id number]) 2000 F CHT Date Time Provider Department [...] to take the 4.5 mg? 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 MAX DOSE OF 2 TABLETS A DAY - cyclobenzaprine (FLEXERIL) 10 mg tablet Take 10 mg by mouth three times daily. prn - Insulin [place], Disposable, (BD ULTRAFINE III MINI PEN) 31 gauge x 3/16" Uses 4 per day with insulin injection [...] Status:Closed by PAIGE MULLER on 06/27/24 Normal [facility] Activated partial thrombopla stin time (aPTT) in platelet poor plasma by coagulation aOrdered By: Fortunato Yap on 11-22-2023 aPTT Coag (PPP) [Time] 28.1 s 24.1-36.2 [facility] Basophil percentageOrdered B y: Fortunato Yap on 11-22-2023 Bilirubin [Mass/Vol] 0.40 mg/dL 0.20-1.00 [facility] Comment on above: For patients on eltr ombopag therapy, use of Dimension [facility] TBIL is not recommended. Chloride [Moles/Vol] 110 mmol/L 98-107 [facility] Glucose [Mass/Vol] 123 mg/dL 74-106 [facility] Comment on above: Fasting Glucose resu lt from 100 to 125 mg/dL suggests IMPAIRED HOMEOSTASIS per A.D.A. criteria. Hemoglobin (Bld) [Mass/Vol] 13.0 g/dL 12.0-15.0 [facility] Potassium [Moles/Vol] 3.5 mmol/L 3.5-5.1 [facility] Protein [Mass/Vol] 6.9 g/dL 6.4-8.2 [facility] Sodium [Moles/Vol] 141 mmol/L 136-145 [facility] WBC (Bld) [#/Vol] 9.6 10*3/uL 4.4-11.0 [facility] Determination of erythrocyte mean corpuscular volume (MCV)Ordered By: Fortunato Yap on 11-22-2023 MCV (RBC) [Entitic vol] 98.0 fL 81-99 [facility] Direct bilirubinOrdered By: Fortunatomaria g Yap on 11-22-2023 Bilirubin.direct [Mass/Vol] 0.11 mg/dL 0.00-0.30 [facility] Erythrocyte distribution wid th ratioOrdered By: [facility] Marely on 11-22-2023 Erythrocyte distribution width (RBC) [Ratio] 12.2 % 11.6-14.6 [facility] Erythrocyte distribution wid th standard deviationOrdered By: Fortunatomaria g Yap on 11-22-2023 Erythrocyte distribution width (RBC) [Entitic vol] 43.5 fL 35.1-43.9 [facility] Hematocrit Auto (Bld) [Volum e fraction]Ordered By: Fortunato Yap on 11-22-2023 Hematocrit (Bld) [Volume fraction] 39.0 % 37-47 [facility] Laboratory - Chemistry and C hemistry - challengeOrdered By: Fortunatomaria g Yap on 11-22-2023 ALP [Catalytic activity/Vol] 52 U/L 45-117 [facility] ALT [Catalytic activity/Vol] 23 U/L 13-56 [facility] CO2 [Moles/Vol] 24.0 mmol/L 21.0-32.0 [facility] Globulin (S) [Mass/Vol] 3.3 g/dL 2.2-4.2 [facility] Urea nitrogen/Creatinine [Mass ratio] 11.1 mg/mg 10-20 [facility] HCG ( test) Ql (U) Negative [facility] Comment on above: Very dilute urine sp ecimens, as indicated by a low specificgravity, may not contain sales representative metals levels of hCG. If is still suspected, a first morning urinespecimen should be collected 48 hours later and tested. Laboratory - CoagulationOrde red By: Fortunato Yap on 11-22-2023 INR Coag (Bld) [Relative time] 1.0 {INR} [facility] PT Coag (PPP) [Time] 13.6 s 11.7-14.9 [facility] Laboratory - Hematology and Cell countsOrdered By: Fortunato Yap on 11-22-2023 MCH (RBC) [Entitic mass] 32.7 pg 27.0-32.0 [facility] MCHC (RBC) [Mass/Vol] 33.3 g/dL 32-36 [facility] Platelet mean volume (Bld) [Entitic vol] 8.5 fL 6.2-12.0 [facility] Platelets (Bld) [#/Vol] 303 10*3/uL 150-450 [facility] No Panel InformationOrdered By: Fortunato Yap on 11-22-2023 Estimated Creatinine Clearance Calc 182.94 ml/min [facility] Estimated GFR (MDRD) Amer 127 mL/min >60 [facility] Comment on above: GFR Calc Estimated GFR (MDRD) Non-Af Amer 105 mL/min >60 [facility] Comment on above: Non- GFR Calc RBC Auto (Bld) [#/Vol]Ordere d By: Fortunato Yap on 11-22-2023 RBC (Bld) [#/Vol] 3.98 10*6/uL 4.2-5.4 [facility] Serum or plasma calcium jalyn urement (mass/volume)Ordered By: Fortunato Yap on 11-22-2023 Calcium [Mass/Vol] 8.6 mg/dL 8.5-10.1 [facility] Serum or plasma creatinine m easurement (mass/volume)Ordered By: Fortunato Yap on 11-22-2023 Creatinine [Mass/Vol] 0.72 mg/dL 0.55-1.02 [facility] Comment on above: The validity of the calculated GFR & GFRAA in patients over 70 years has not been determined. Clinical correlation is essential. Serum or plasma urea nitroge n measurement (mass/volume)Ordered By: Fortunato Yap on 11-22-2023 Urea nitrogen [Mass/Vol] 8 mg/dL 7-18 [facility] Thin prep Papanicolaou smear with manual screeningOrdered By: Indio Olivares on 11-22-2023 Thin prep Papanicolaou smear with manual screening 165 mg/dL 74-106 [facility] Comment on above: MANAGEMENT OF PATIEN T CARE PER NURSING PROTOCOL Thin prep Papanicolaou smear with manual screeningOrdered By: Fortunato Yap on 11-22-2023 Thin prep Papanicolaou smear with manual screening 3.6 g/dL 3.2-5.0 [facility] Thin prep Papanicolaou smear with manual screening 15 U/L 15-37 [facility] Thin prep Papanicolaou smear with manual screening 7 5-15 [facility] CVFLURVon 10-25-2023 FLU A PCR Negative Normal [facility] Comment on above: Performed By: #### C VFLURV, STREPA ####[facility] [address] [place] [address] FLU B PCR Negative Normal [facility] Comment on above: Performed By: #### C VFLURV, STREPA ####[facility] [address] [place], [place] [address] RSV PCR Negative Normal [facility] Comment on above: Performed By: #### C VFLURV STREPA ####[facility] [address] [address] SARS-CoV-2 (COVID-19) RNA GREYSON+probe Ql (Unsp spec) Negative Normal [facility] Comment on above: Result Comment: Resu lts [...] results. Performed By: #### C VFLURV STREPA ####[facility] [address] [place], [place] [address] STREPAon 10-25-2023 Group A Strep PCR Not detected Normal Not Detected [facility] Comment on above: Performed By: #### C VFSAMARIARV STREPA ####[facility] [address] [place] [address] Group A Strep PCR Int Normal [facility] Comment on above: Result Comment: Nega tive [...] infections. See Interp Performed By: #### C VFLURV STREPA ####[facility] [address] [place], [place] [address] LABORATORYOrdered By: Edith Rodriguez on 10-24-2023 FLUAV [...] HbA1c (Bld) [Mass fraction] 5.9 % 4.2-6.3 [facility] Serum or plasma thyroid stim ulating hormone (TSH) measurement (units/volume)Ordered By: [facility] on 10-12-2023 TSH Qn 0.87 uIU/mL 0.358-3.74 [facility] Thin prep Papanicolaou smear with manual screeningOrdered By: [facility] on 10-12-2023 Thin prep Papanicolaou smear with manual screening 0.88 ng/dL 0.76-1.46 [facility] Absolute lymphocyte countOrd ered By: [facility] on 08-03-2023 Lymphocytes Auto (Unsp spec) [#/Vol] 2.77 10*3/uL 0.83-4.51 [facility] Basophil percentageOrdered B y: [facility] Eduardcy[facility] on 08-03-2023 Basophils/100 WBC (Bld) 0.2 % 0-1 [facility] Bilirubin [Mass/Vol] 0.20 mg/dL 0.20-1.00 [facility] Comment on above: For patients on eltr ombopag therapy, use of Dim[facility] TBIL is not recommended. Chloride [Moles/Vol] 106 mmol/L 98-107 [facility] Eosinophils/100 WBC (Bld) 1.1 % 0-5 [facility] Glucose [Mass/Vol] 90 mg/dL 74-106 [facility] Neutrophils (Bld) [#/Vol] 5.1 10*3/uL 2.0-7.7 [facility] Neutrophils/100 WBC (Bld) 61.4 % 47-70 [facility] Potassium [Moles/Vol] 4.1 mmol/L 3.5-5.1 [facility] Protein [Mass/Vol] 7.6 g/dL 6.4-8.2 [facility] Sodium [Moles/Vol] 140 mmol/L 136-145 [facility] WBC (Bld) [#/Vol] 8.4 10*3/uL 4.4-11.0 [facility] Blood erythrocytes count (nu mber/volume)Ordered By: Eliazar Amos on 08-03-2023 RBC (Bld) [#/Vol] 4.09 10*6/uL 4.2-5.4 [facility] Blood hemoglobin measurement (mass/volume)Ordered By: Eliazar Amos on 08-03-2023 Hemoglobin (Bld) [Mass/Vol] 14.0 g/dL 12.0-15.0 [facility] Blood lymphocytes/100 leukoc ytesOrdered By: [facility] on 08-03-2023 Lymphocytes/100 WBC (Bld) 33.2 % 19-41 [facility] Blood monocytes/100 leukocyt esOrdered By: [facility] on 08-03-2023 Monocytes/100 WBC (Bld) 4.0 % 0-10 [facility] Blood platelet mean volumeOr dered By: Eliazar Amos on 08-03-2023 Platelet mean volume (Bld) [Entitic vol] 8.9 fL 6.2-12.0 [facility] Determination of erythrocyte mean corpuscular volume (MCV)Ordered By: Eliazar Amos on 08-03-2023 MCV (RBC) [Entitic vol] 101.0 fL 81-99 [facility] Hematocrit Auto (Bld) [Volum e fraction]Ordered By: [facility] on 08-03-2023 Hematocrit (Bld) [Volume fraction] 41.3 % 37-47 [facility] Laboratory - Chemistry and C hemistry - challengeOrdered By: Calvin[facility] bendsharon Amos on 08-03-2023 ALP [Catalytic activity/Vol] 58 U/L 45-117 [facility] ALT [Catalytic activity/Vol] 39 U/L 13-56 [facility] CO2 [Moles/Vol] 30.0 mmol/L 21.0-32.0 [facility] Globulin (S) [Mass/Vol] 3.9 g/dL 2.2-4.2 [facility] Urea nitrogen/Creatinine [Mass ratio] 19.5 mg/mg 10-20 [facility] Laboratory - Hematology and Cell countsOrdered By: Eliazar Amos on 08-03-2023 Erythrocyte distribution width (RBC) [Entitic vol] 43.4 fL 35.1-43.9 [facility] Erythrocyte distribution width (RBC) [Ratio] 11.9 % 11.6-14.6 [facility] Immature granulocytes/100 WBC (Bld) 0.100 % 0.0-0.9 [facility] Comment on above: IG% - Immature Granu locytes (promyelocytes, myelocytes and metamyelocytes) > 1% indicates that a LEFT SHIFT is Present. MCH (RBC) [Entitic mass] 34.2 pg 27.0-32.0 [facility] Nucleated RBC/100 WBC (Bld) [Ratio] 0 % 0-5 [facility] Laboratory - Hematology and Cell countson 08-03-2023 HbA1c (Bld) [Mass fraction] 6.8 % 4.2-6.3 [facility] MCHC Auto (RBC) [Mass/Vol]Or dered By: Eliazar Amos on 08-03-2023 MCHC (RBC) [Mass/Vol] 33.9 g/dL 32-36 [facility] No Panel InformationOrdered By: Eliazar Amos on 08-03-2023 Estimated GFR (MDRD) Amer 128 mL/min >60 [facility] Comment on above: GFR Calc Estimated GFR (MDRD) Non-Af Amer 105 mL/min >60 [facility] Comment on above: Non- GFR Calc Platelets bldOrdered By: Minh Amos on 08-03-2023 Platelets (Bld) [#/Vol] 294 10*3/uL 150-450 [facility] Serum or plasma albumin jalyn urement (mass/volume)Ordered By: Eliazar Amos on 08-03-2023 Albumin [Mass/Vol] 3.7 g/dL 3.2-5.0 [facility] Serum or plasma albumin/glob ulin mass ratioOrdered By: Eliazar Amos on 08-03-2023 Albumin/Globulin [Mass ratio] 0.9 {ratio} 0.9-2.4 [facility] Serum or plasma calcium jalyn urement (mass/volume)Ordered By: Eliazar Amos on 08-03-2023 Calcium [Mass/Vol] 9.4 mg/dL 8.5-10.1 [facility] Serum or plasma creatinine m easurement (mass/volume)Ordered By: Eliazar Amos on 08-03-2023 Creatinine [Mass/Vol] 0.72 mg/dL 0.55-1.02 [facility] Comment on above: The validity of the calculated GFR & GFRAA in patients over 70 years has not been determined. Clinical correlation is essential. Serum or plasma urea nitroge n measurement (mass/volume)Ordered By: Eliazar Amos on 08-03-2023 Urea nitrogen [Mass/Vol] 14 mg/dL 03-21 [facility] Thin prep Papanicolaou smear with manual screeningOrdered By: Eliazar Amos on 08-03-2023 Thin prep Papanicolaou smear with manual screening 18 U/L 15- [facility] Thin prep Papanicolaou smear with manual screening 4 5-15 [facility] HEMOGLOBIN A1C (POC)on 06-21 HbA1c (Bld) [Mass fraction] 9.1 % Abnormal 4.2 - 5.6 % [facility] US THYROID/PARATHYROIDon [facility] Absolute lymphocyte countOrd ered By: Eliazar Amos on 05-11-2023 Lymphocytes Auto (Unsp spec) [#/Vol] 2.33 10*3/uL 0.83-4.51 [facility] Basophil percentageOrdered B y: Eliazar Amos on 05-11-2023 Basophils/100 WBC (Bld) 0.4 % 0-1 [facility] Bilirubin [Mass/Vol] 0.40 mg/dL 0.20-1.00 [facility] Comment on above: For patients on eltr ombopag therapy, use of Dim[facility] TBIL is not recommended. Chloride [Moles/Vol] 107 mmol/L 98-107 [facility] Eosinophils/100 WBC (Bld) 1.9 % 0-5 [facility] Glucose [Mass/Vol] 286 mg/dL 74-106 [facility] Comment on above: Glucose result great er than or equal to 200 mg/dLsuggests DIABETES MELLITUS per A.D.A. criteria. Neutrophils (Bld) [#/Vol] 6.9 10*3/uL 2.0-7.7 [facility] Neutrophils/100 WBC (Bld) 69.7 % 47-70 [facility] Potassium [Moles/Vol] 3.7 mmol/L 3.5-5.1 [facility] Protein [Mass/Vol] 7.2 g/dL 6.4-8.2 [facility] Sodium [Moles/Vol] 139 mmol/L 136-145 [facility] WBC (Bld) [#/Vol] 9.8 10*3/uL 4.4-11.0 [facility] Blood erythrocytes count (nu mber/volume)Ordered By: Eliazar Amos on 05-11-2023 RBC (Bld) [#/Vol] 4.21 10*6/uL 4.2-5.4 [facility] Blood hemoglobin measurement (mass/volume)Ordered By: Eliazar Amos on 05-11-2023 Hemoglobin (Bld) [Mass/Vol] 14.1 g/dL 12.0-15.0 [facility] Blood lymphocytes/100 leukoc ytesOrdered By: Eliazar Amos on 05-11-2023 Lymphocytes/100 WBC (Bld) 23.7 % 19-41 [facility] Blood monocytes/100 leukocyt esOrdered By: Eliazar Amos on 05-11-2023 Monocytes/100 WBC (Bld) 4.1 % 0-10 [facility] Blood platelet mean volumeOr dered By: Eliazar Amos on 05-11-2023 Platelet mean volume (Bld) [Entitic vol] 9.3 fL 6.2-12.0 [facility] Determination of erythrocyte mean corpuscular volume (MCV)Ordered By: Eliazar Amos on 05-11-2023 MCV (RBC) [Entitic vol] 98.8 fL 81-99 [facility] Hematocrit Auto (Bld) [Volum e fraction]Ordered By: Eliazar Amos on 05-11-2023 Hematocrit (Bld) [Volume fraction] 41.6 % 37-47 [facility] Laboratory - Chemistry and C hemistry - challengeOrdered By: Eliazar Amos on 05-11-2023 ALP [Catalytic activity/Vol] 66 U/L 45-117 [facility] ALT [Catalytic activity/Vol] 32 U/L 13-56 [facility] CO2 [Moles/Vol] 26.0 mmol/L 21.0-32.0 [facility] Globulin (S) [Mass/Vol] 3.8 g/dL 2.2-4.2 [facility] Urea nitrogen/Creatinine [Mass ratio] 14.8 mg/mg 10-20 [facility] Laboratory - Hematology and Cell countsOrdered By: Eliazar Amos on 05-11-2023 Erythrocyte distribution width (RBC) [Entitic vol] 42.1 fL 35.1-43.9 [facility] Erythrocyte distribution width (RBC) [Ratio] 11.7 % 11.6-14.6 [facility] Immature granulocytes/100 WBC (Bld) 0.200 % 0.0-0.9 [facility] Comment on above: IG% - Immature Granu locytes (promyelocytes, myelocytes and metamyelocytes) > 1% indicates that a LEFT SHIFT is Present. MCH (RBC) [Entitic mass] 33.5 pg 27.0-32.0 [facility] Nucleated RBC/100 WBC (Bld) [Ratio] 0 % 0-5 [facility] MCHC Auto (RBC) [Mass/Vol]Or dered By: Eliazar Amos on 05-11-2023 MCHC (RBC) [Mass/Vol] 33.9 g/dL 32-36 [facility] No Panel InformationOrdered By: Eliazar Amos on 05-11-2023 Estimated GFR (MDRD) Amer 111 mL/min >60 [facility] Comment on above: GFR Calc Estimated GFR (MDRD) Non-Af Amer 92 mL/min >60 [facility] Comment on above: Non- GFR Calc Platelets bldOrdered By: Minh Amos on 05-11-2023 Platelets (Bld) [#/Vol] 290 10*3/uL 150-450 [facility] Serum or plasma albumin jalyn urement (mass/volume)Ordered By: Eliazar Amos on 05-11-2023 Albumin [Mass/Vol] 3.4 g/dL 3.2-5.0 [facility] Serum or plasma albumin/glob ulin mass ratioOrdered By: Eliazar Amos on 05-11-2023 Albumin/Globulin [Mass ratio] 0.9 {ratio} 0.9-2.4 [facility] Serum or plasma calcium jalyn urement (mass/volume)Ordered By: Calvinwest bendsharon Amos on 05-11-2023 Calcium [Mass/Vol] 9.1 mg/dL 8.5-10.1 [facility] Serum or plasma creatinine m easurement (mass/volume)Ordered By: Calvinwest bendsharon Amos on 05-11-2023 Creatinine [Mass/Vol] 0.81 mg/dL 0.55-1.02 [facility] Comment on above: The validity of the calculated GFR & GFRAA in patients over 70 years has not been determined. Clinical correlation is essential. Serum or plasma urea nitroge n measurement (mass/volume)Ordered By: Eliazar Amos on 05-11-2023 Urea nitrogen [Mass/Vol] 12 mg/dL 7-18 [facility] Thin prep Papanicolaou smear with manual screeningOrdered By: Calvinwest bendsharon Amos on 05-11-2023 Thin prep Papanicolaou smear with manual screening 16 U/L 15-37 [facility] Thin prep Papanicolaou smear with manual screening 6 5-15 [facility] Laboratory - Hematology and Cell countson 05-03-2023 HbA1c (Bld) [Mass fraction] 11.9 % 4.2-6.3 [facility] ALBUMIN/CREAT RATIO RND URon 04-06-2023 Albumin DL <= 20 mg/L (U) [Mass/Vol] [facility] Albumin/Creatinine (U) [Mass ratio] <30 mg/g [facility] Creatinine (U) [Mass/Vol] 128.4 mg/dL 20.0 - 300.0 mg/dL [facility] LIPID PANEL, NONFASTINGon Cholesterol [Mass/Vol] 184 mg/dL <200 mg/dL [facility] HDL Cholesterol, Nonfasting 36 mg/dL Low >39 mg/dL [facility] LDL Cholesterol, Nonfasting 106 mg/dL High <100 mg/dL [facility] LDL/HDL Ratio, Nonfasting 2.94 mg/dL High <2.54 mg/dL [facility] Non HDL Cholesterol, Nonfasting 148 mg/dL High <130 mg/dL [facility] Total Chol/HDL Ratio, Nonfasting 5.11 mg/dL High <5.10 mg/dL [facility] Triglycerides, Nonfasting 210 mg/dL High <150 mg/dL [facility] VLDL Cholesterol, Nonfasting 42 mg/dL High <30 mg/dL [facility] T4 FREE/FREE THYROXon 2022 Free T4 [Mass/Vol] 1.0 ng/dL 0.9 - 1.7 ng/dL [facility] TSH BLDon 04-06-2023 TSH Qn 0.777 m[IU]/L 0.270 - 4.200 mIU/L [facility] Comprehensive metabolic 2000 panelon 04-05-2023 Albumin [Mass/Vol] 4.1 g/dL 3.9 - 4.9 g/dL [facility] ALP [Catalytic activity/Vol] 72 U/L 34 - 123 U/L [facility] ALT [Catalytic activity/Vol] 30 U/L 7 - 38 U/L [facility] Anion gap [Moles/Vol] 13 mmol/L 9 - 18 mmol/L [facility] AST [Catalytic activity/Vol] 21 U/L 13 - 35 U/L [facility] Bilirubin [Mass/Vol] 0.2 mg/dL 0.2 - 1 .3 mg/dL [facility] Calcium [Mass/Vol] 9.6 mg/dL 8.5 - 10. 2 mg/dL [facility] Chloride [Moles/Vol] 102 mmol/L 97 - 10 5 mmol/L [facility] CO2 [Moles/Vol] 24 mmol/L 22 - 30 mmol/L [facility] Creatinine [Mass/Vol] 0.60 mg/dL 0.58 - 0.96 mg/dL [facility] Estimated Glomerular Filtration Rate 129 mL/min/1.73m >=60 mL/min/1.73 m [facility] Glucose [Mass/Vol] 235 mg/dL High 74 - 99 mg/dL [facility] Potassium [Moles/Vol] 3.8 mmol/L 3.7 - 5.1 mmol/L [facility] Protein [Mass/Vol] 6.9 g/dL 6.3 - 8.0 g/dL [facility] Sodium [Moles/Vol] 139 mmol/L 136 - 144 mmol/L [facility] Urea nitrogen [Mass/Vol] 14 mg/dL 7 - 21 mg/dL [facility] HbA1c (Bld)on 04-05-2023 Average glucose Estimated from glycated hemoglobin (Bld) [Mass/Vol] 266 mg/dL [facility] HbA1c (Bld) [Mass fraction] 10.9 % High 4.3 - 5.6 % [facility] THYROID PEROXIDASE ANTIBODY BLOODon 04-05-2023 TPO Ab Qn 5.2 [IU]/mL <5.6 IU/mL [facility] US PELVIS NON-OB W/TRANSVAGI NALon 03-22-2023 US [...] 03/22/2023 12:39:27 PM Ordering Provider: MARINE Alvarado [facility] Machine Feed Operator Cytology Reporton 2022 Machine Feed Operator Cytology Report . Pathology Reports Accession: Collected Date/Time: Received Date/Time: Pathologist: [id number] 03/13/2023 11:09 EDT 03/13/2023 18:00 EDT TORREY WADE MD Machine Feed Operator Cytology Report SPECIMEN: Specimen Description: Liquid Prep [...] and evaluated with the assistance of the [employer] ThinPrep Test Imaging System. Pathology Reports Accession: Collected Date/Time: Received Date/Time: Pathologist: [id number] 03/13/2023 11:09 EDT 03/13/2023 18:00 EDT TORREY WADE MD Electronically Signed by Pathology report verified by [facility] Screened by: ADIN ENCINAS Electronically signed by TORREY WADE Sign-Out Date: 03/21/2023 13:21 Performing Lab: [facility], [address] [place] [address] Pathology Dept Disclaimer The Pap test is a screening test for cervical cancer. As evidenced by published data, it is subject to both inherent false negative and false positive results. Your patient's results should be interpreted in context with pertinent clinical history including gynecological examination. Normal [facility] HPVon 03-20-2023 HPV Interp Normal See Interp HPVN [facility]) Comment on above: Order Comment: Order placed by AP_HPV_ORDER rule from [id number] Result Comment: High Risk HPV Typing: NEGATIVE [...] sufficient DNA to be detected. See [facility] HPVN Performed By: #### H PV ####[place] [address] HPV Source Cervix Normal [facility] Comment on above: Order Comment: Order placed by AP_HPV_ORDER rule from [id number] Performed By: #### H PV ####[place] [address] Basophil percentageOrdered B y: Saulo Lacy on 03-16-2023 Bilirubin [Mass/Vol] 0.60 mg/dL 0.20-1.00 [facility] Comment on above: For patients on eltr ombopag therapy, use of Dimension [place] TBIL is not recommended. Chloride [Moles/Vol] 104 mmol/L 98-107 [facility] Glucose [Mass/Vol] 291 mg/dL 74-106 [facility] Comment on above: Glucose result great er than or equal to 200 mg/dLsuggests DIABETES MELLITUS per A.D.A. criteria. Potassium [Moles/Vol] 4.0 mmol/L 3.5-5.1 [facility] Protein [Mass/Vol] 7.6 g/dL 6.4-8.2 [facility] Sodium [Moles/Vol] 137 mmol/L 136-145 [facility] WBC (Bld) [#/Vol] 9.5 10*3/uL 4.4-11.0 [facility] Creatinine [Mass/Vol] 0.9 mg/dL 0.55-1.02 [facility] Blood erythrocytes count (nu mber/volume)Ordered By: Saulo Lacy on 03-16-2023 RBC (Bld) [#/Vol] 4.36 10*6/uL 4.2-5.4 [facility] Blood hemoglobin measurement (mass/volume)Ordered By: Saulo Lacy on 03-16-2023 Hemoglobin (Bld) [Mass/Vol] 15.2 g/dL 12.0-15.0 [facility] Blood platelet mean volumeOr dered By: Saulo Lacy on 03-16-2023 Platelet mean volume (Bld) [Entitic vol] 9.4 fL 6.2-12.0 [facility] Determination of erythrocyte mean corpuscular volume (MCV)Ordered By: Saulo Lacy on 03-16-2023 MCV (RBC) [Entitic vol] 98.2 fL 81-99 [facility] Hematocrit Auto (Bld) [Volum e fraction]Ordered By: Saulo Lacy on 03-16-2023 Hematocrit (Bld) [Volume fraction] 42.8 % 37-47 [facility] Laboratory - Chemistry and C hemistry - challengeOrdered By: Saulo Lacy on 03-16-2023 ALP [Catalytic activity/Vol] 74 U/L 45-117 [facility] ALT [Catalytic activity/Vol] 46 U/L 13-56 [facility] CO2 [Moles/Vol] 27.0 mmol/L 21.0-32.0 [facility] Cobalamin (Vitamin B12) [Mass/Vol] 380 pg/mL 211-911 [facility] Free T4 [Mass/Vol] 0.99 ng/dL 0.76-1.46 [facility] Globulin (S) [Mass/Vol] 3.8 g/dL 2.2-4.2 [facility] Urea nitrogen/Creatinine [Mass ratio] 13.5 mg/mg 10-20 [facility] Laboratory - Hematology and Cell countsOrdered By: Saulo Lacy on 03-16-2023 Erythrocyte distribution width (RBC) [Entitic vol] 43.1 fL 35.1-43.9 [facility] Erythrocyte distribution width (RBC) [Ratio] 11.9 % 11.6-14.6 [facility] MCH (RBC) [Entitic mass] 34.9 pg 27.0-32.0 [facility] MCHC Auto (RBC) [Mass/Vol]Or dered By: Saulo Lacy on 03-16-2023 MCHC (RBC) [Mass/Vol] 35.5 g/dL 32-36 [facility] No Panel InformationOrdered By: Saulo Lacy on 03-16-2023 Estimated GFR (MDRD) Amer 101 mL/min >60 [facility] Comment on above: GFR Calc Estimated GFR (MDRD) Non-Af Amer 83 mL/min >60 [facility] Comment on above: Non- GFR Calc Thyroid Stimulating Hormone (TSH) 1.45 uIU/mL 0.358-3.74 [facility] Whole Blood Vitamin B1 Level 143.8 nmol/L 66.5-200.0 [facility] Comment on above: Performed at: - [address] [id number] Director: Tim Altamirano MD, Phone: [phone] Bedside Estimated GFR (eGFR) > 60.0000 mL/min >60 [facility] Platelets bldOrdered By: Solo Lacy on 03-16-2023 Platelets (Bld) [#/Vol] 295 10*3/uL 150-450 [facility] Serum or plasma albumin jalyn urement (mass/volume)Ordered By: Saulo Lacy on 03-16-2023 Albumin [Mass/Vol] 3.8 g/dL 3.2-5.0 [facility] Serum or plasma albumin/glob ulin mass ratioOrdered By: Saulo Lacy on 03-16-2023 Albumin/Globulin [Mass ratio] 1.0 {ratio} 0.9-2.4 [facility] Serum or plasma calcitriol m easurement (mass/volume)Ordered By: Saulo Lacy on 03-16-2023 1,25-dihydroxyvitamin D3 [Mass/Vol] 49.1 pg/mL 24.8-81.5 [facility] Comment on above: Performed at: [facility] - [address] [id number] Director: Tim Altamirano MD, Phone: [phone] Serum or plasma calcium jalyn urement (mass/volume)Ordered By: Saulo Lacy on 03-16-2023 Calcium [Mass/Vol] 9.3 mg/dL 8.5-10.1 [facility] Serum or plasma creatinine m easurement (mass/volume)Ordered By: Saulo Lacy on 03-16-2023 Creatinine [Mass/Vol] 0.89 mg/dL 0.55-1.02 [facility] Comment on above: The validity of the calculated GFR & GFRAA in patients over 70 years has not been determined. Clinical correlation is essential. Serum or plasma folate measu rement (mass/volume)Ordered By: Saulo Lacy on 03-16-2023 Folate [Mass/Vol] 19.50 ng/mL 3.1-55.4 [facility] Serum or plasma urea nitroge n measurement (mass/volume)Ordered By: Saulo Lacy on 03-16-2023 Urea nitrogen [Mass/Vol] 12 mg/dL 7-18 [facility] Thin prep Papanicolaou smear with manual screeningOrdered By: Saulo Lacy on 03-16-2023 Thin prep Papanicolaou smear with manual screening 17 U/L 15-37 [facility] Thin prep Papanicolaou smear with manual screening 6 5-15 [facility] CTPCRon 03-14-2023 C. trachomatis Interp Normal See CT Interp N [facility] Comment on above: Result Comment: C. t rachomatis DNA not detected. Specimen is presumptive negative for C. trachomatis. A negative result does not preclude C. trachomatis infection because results depend on adequate specimen collection, absence of inhibitors, and sufficient DNA to be detected. See CT Interp N Performed By: #### N GPCR1, CTPCR #### [place] [address] C.trachomatis PCR Negative Normal Negative [facility] Comment on above: Result Comment: Mole cular (PCR) assay performed on the [employer] [place] 4800 system. Performed By: #### N GPCR1, CTPCR #### [place] [id number] Chlam Source Urine Normal [facility] Comment on above: Performed By: #### N GPCR1, CTPCR #### [place] [address] [id number] 03-14-2023 GC PCR Source Urine Normal [facility] Comment on above: Performed By: #### N GPCR1, CTPCR #### [place] [address] N. gonorrhoeae (PCR) Negative Normal Negative [facility] ([place] Comment on above: Result Comment: Mole cular (PCR) assay performed on the [employer] [place] 4800 System. Performed By: #### N GPCR1, CTPCR #### [place] [address] N. gonorrhoeae Interp Normal See NG Interp N [facility] Comment on above: Result Comment: N. g onorrhoeae DNA not detected. Specimen is presumptive negative for N. gonorrhoeae. A negative result does not preclude Neisseria gonorrhoeae infection because results depend on adequate specimen collection, absence of inhibitors, and sufficient DNA to be detected. See NG Interp N Performed By: #### N GPCR1, CTPCR #### [place] [address] LABORATORYOrdered By: Clarisse Parker on 03-13-2023 C. [...] or 2. Interpretative criteria are not available. [facility] Work Phone: XR KNEE THREE VIEWS RIGHTon [...] 12/09/2022 11:57:33 PM Ordering Provider: SPRING Alvarado [facility] T4on 12-08-2022 T4 [Mass/Vol] 8.1 ug/dL Normal 4.5-10.9 [facility] Comment on above: Result Comment: No te - New Reference Range in effect 20 Performed By: #### M DW, TSH, CBC, GFR, BMP, ADIFF, ANEU ####[place] [address]#### T4 ####[place] [address] .Auto Diffon 12-07-2022 Basophil, Absolute 0.0 10 3/mcL Normal 0.0-0.2 [facility]) Comment on above: Performed By: #### M DW, TSH, CBC, GFR, BMP, ADIFF, ANEU #### [place] [address] #### T4 #### [place] [address] Basophils/100 WBC (Bld) 0.5 % Normal 0.0-2.5 [facility] ([place]) Comment on above: Performed By: #### M DW, TSH, CBC, GFR, BMP, ADIFF, ANEU #### [place] [address] #### T4 #### [facility] [address] [place], [place] [address] Eosinophil, Absolute 0.1 10 3/mcL Normal 0.0-0.4 [facility] ([place] Comment on above: Performed By: #### M DW, TSH, CBC, GFR, BMP, ADIFF, ANEU #### [address] [address] #### T4 #### [address] [address] Eosinophils/100 WBC (Bld) 1.0 % Normal 0.0-7.0 [facility] Comment on above: Performed By: #### M DW, TSH, CBC, GFR, BMP, ADIFF, ANEU #### [place] [address] #### T4 #### [address] [address] Lymphocyte, Absolute 2.7 10 3/mcL Normal 0.8-3.9 [facility] ([place] Comment on above: Performed By: #### M DW, TSH, CBC, GFR, BMP, ADIFF, ANEU #### [place] [address] #### T4 #### [address] [address] Lymphocytes/100 WBC (Bld) 33.6 % Normal 10.0-50.0 [facility] Comment on above: Performed By: #### M DW, TSH, CBC, GFR, BMP, ADIFF, ANEU #### [place] [address] #### T4 #### [address] [address] Monocyte, Absolute 0.3 10 3/mcL Normal 0.2-1.0 [facility] ([place] Comment on above: Performed By: #### M DW, TSH, CBC, GFR, BMP, ADIFF, ANEU #### [place] [address] #### T4 #### [address] [address] Monocytes/100 WBC (Bld) 3.6 % Normal 1.7-13.0 [facility] ([place] Comment on above: Performed By: #### M DW, TSH, CBC, GFR, BMP, ADIFF, ANEU #### [address] [address] #### T4 #### [facility] [address] [place] [address] Neutrophils/100 WBC (Bld) 61.3 % Normal 37.0-80.0 [facility] Comment on above: Performed By: #### M DW, TSH, CBC, GFR, BMP, ADIFF, ANEU #### [address] [address] #### T4 #### [facility] [address] [place] [address] .GFRon 12-07-2022 GFR 100 ml/min/1.73sqm Normal [facility] Comment on above: Result Comment: GFR Population [...] DW, TSH, CBC, GFR, BMP, ADIFF, ANEU ####[facility] [place], [place] [address]#### T4 ####[facility] [place] [address] GFR Non- 83 ml/min/1.73sqm Normal [facility] Comment on above: Result Comment: GFR Population [...] DW, TSH, CBC, GFR, BMP, ADIFF, ANEU ####[address] [address]#### T4 ####[place] [address] .MDWon 12-07-2022 Monocyte Distribution Width 15.40 Normal 0.00-20.00 [facility] Comment on above: Result Comment: For ED adult patients suspected of sepsis, MDW<=20.0 does not rule out sepsis or risk of sepsis Performed By: #### M DW, TSH, CBC, GFR, BMP, ADIFF, ANEU #### [place] [address] #### T4 #### [place] [address] .NEUABSon 12-07-2022 Neutrophil, Absolute 4.9 10 3/mcL Normal 2.9-6.2 [facility] ([place] Comment on above: Performed By: #### M DW, TSH, CBC, GFR, BMP, ADIFF, ANEU #### [address] [address] #### T4 #### [address] 12-07-2022 BUN/Creatinine Ratio 12 ratio Normal 7-27 [facility] ([place] Comment on above: Performed By: #### M DW, TSH, CBC, GFR, BMP, ADIFF, ANEU #### [place] [address] #### T4 #### [address] [address] Calcium [Mass/Vol] 9.2 mg/dL Normal 8.4-10.2 [facility] ([place] Comment on above: Performed By: #### M DW, TSH, CBC, GFR, BMP, ADIFF, ANEU #### [address] [address] #### T4 #### [address] [address] Chloride [Moles/Vol] 103 mmol/L Normal 98-107 [facility] ([place] Comment on above: Performed By: #### M DW, TSH, CBC, GFR, BMP, ADIFF, ANEU #### [place] [address] #### T4 #### [address] [address] CO2 [Moles/Vol] 28 mmol/L Normal 22-29 [facility] Comment on above: Performed By: #### M DW, TSH, CBC, GFR, BMP, ADIFF, ANEU #### [place] [address] #### T4 #### [address] [address] Creatinine [Mass/Vol] 0.85 mg/dL Normal 0.55-1.02 [facility] ([place] Comment on above: Performed By: #### M DW, TSH, CBC, GFR, BMP, ADIFF, ANEU #### [place] [address] #### T4 #### [address] [address] Electrolyte Balance 9.0 mEq/L Normal 4.0-15.0 [facility] ([place] Comment on above: Performed By: #### M DW, TSH, CBC, GFR, BMP, ADIFF, ANEU #### [address] [address] #### T4 #### [address] [address] Glucose [Mass/Vol] 216 mg/dL High 70-105 [facility] ([place] Comment on above: Performed By: #### M DW, TSH, CBC, GFR, BMP, ADIFF, ANEU #### [address] [address] #### T4 #### [address] [address] Potassium [Moles/Vol] 4.2 mmol/L Normal 3.5-5.1 [facility] ([place] Comment on above: Performed By: #### M DW, TSH, CBC, GFR, BMP, ADIFF, ANEU #### [address] [address] #### T4 #### [address] [address] Sodium [Moles/Vol] 140 mmol/L Normal 136-145 [facility] ([place] Comment on above: Performed By: #### M DW, TSH, CBC, GFR, BMP, ADIFF, ANEU #### [address] [address] #### T4 #### [address] [address] Urea nitrogen [Mass/Vol] 10 mg/dL Normal 7-18 [facility] Comment on above: Performed By: #### M DW, TSH, CBC, GFR, BMP, ADIFF, ANEU #### [address] [address] #### T4 #### [address] [address] CBCon 12-07-2022 Erythrocyte distribution width (RBC) [Ratio] 13.0 % Normal 11.5-14.5 [facility] Comment on above: Performed By: #### M DW, TSH, CBC, GFR, BMP, ADIFF, ANEU #### [address] [address] #### T4 #### [address] [address] Hematocrit (Bld) [Volume fraction] 41.1 % Normal 37.0-47.0 [facility] Comment on above: Performed By: #### M DW, TSH, CBC, GFR, BMP, ADIFF, ANEU #### [place] [address] #### T4 #### [place] [address] Hgb 14.2 G/dL Normal 12.0-16.0 [facility] [place] Comment on above: Performed By: #### M DW, TSH, CBC, GFR, BMP, ADIFF, ANEU #### [place] [address] #### T4 #### [place] [address] MCH (RBC) [Entitic mass] 33.8 pg High 27.0-31.2 [facility] [place] Comment on above: Performed By: #### M DW, TSH, CBC, GFR, BMP, ADIFF, ANEU #### [place] [address] #### T4 #### [place] [address] MCHC 34.6 G/dL Normal 33.0-37.0 [facility] [place] Comment on above: Performed By: #### M DW, TSH, CBC, GFR, BMP, ADIFF, ANEU #### [place] [address] #### T4 #### [place] [address] MCV (RBC) [Entitic vol] 97.6 fL High 80.0-94.0 [facility] ([place]) Comment on above: Performed By: #### M DW, TSH, CBC, GFR, BMP, ADIFF, ANEU #### [place] [address] #### T4 #### [place] [address] Platelet 281 10 3/mcL Normal 130-400 [facility] Comment on above: Performed By: #### M DW, TSH, CBC, GFR, BMP, ADIFF, ANEU #### [place] [address] #### T4 #### [place] [address] Platelet mean volume (Bld) [Entitic vol] 6.9 fL Low 7.4-10.4 [facility] [place] Comment on above: Performed By: #### M DW, TSH, CBC, GFR, BMP, ADIFF, ANEU #### [place] [address] #### T4 #### [place] [address] RBC 4.21 10 6/mcL Normal 4.20-5.40 [facility] Comment on above: Performed By: #### M DW, TSH, CBC, GFR, BMP, ADIFF, ANEU #### [place] [address] #### T4 #### [place] [address] WBC 7.9 10 3/mcL Normal 4.6-10.8 [facility] Comment on above: Performed By: #### M DW, TSH, CBC, GFR, BMP, ADIFF, ANEU #### [place] [address] #### T4 #### [place] [address] LABORATORYOrdered By: Brandon Walden on 12-07-2022 Basophil, [...] Invalid Interpretation Code 70 - 110 mg/dL [facility] Work Phone: TSHon 12-07-2022 TSH Qn 1.27 m[IU]/L Normal 0.36-3.74 [facility] Comment on above: Performed By: #### M DW, TSH, CBC, GFR, BMP, ADIFF, ANEU #### [facility] [address] [place] [address] #### T4 #### [facility] [address] [place], [place] [address] XR CHEST 2 VIEWSon 3 XR CHEST [...] 12/07/2022 1:47:20 PM Ordering Provider: NAYELY FISHER [facility] ([place] XR NECK SOFT TISSUEon 2022 XR NECK [...] 12/07/2022 1:36:44 PM Ordering Provider: NAYELY FISHER [facility] ([place] Absolute lymphocyte counton 08-12-2022 Lymphocytes Auto (Unsp spec) [#/Vol] 2.19 10*3/uL 0.83-4.51 [facility] Work Phone: Basophil percentageon 2021 Basophils/100 WBC (Bld) 0.2 % 0-1 [facility] Work Phone: Chloride [Moles/Vol] 109 mmol/L 98-107 [facility] Work Phone: Eosinophils/100 WBC (Bld) 0.7 % 0-5 [facility] Work Phone: Glucose [Mass/Vol] 187 mg/dL 74-106 [facility] Work Phone: Comment on above: Fasting Glucose resu lt greater than or equal to 126 mg/dL suggests DIABETES MELLITUS per A.D.A. criteria. Neutrophils (Bld) [#/Vol] 6.8 10*3/uL 2.0-7.7 [facility] Work Phone: Neutrophils/100 WBC (Bld) 71.7 % 47-70 [facility] Work Phone: Potassium [Moles/Vol] 3.6 mmol/L 3.5-5.1 [facility] Work Phone: Sodium [Moles/Vol] 141 mmol/L 136-145 [facility] Work Phone: WBC (Bld) [#/Vol] 9.5 10*3/uL 4.4-11.0 [facility] Work Phone: Blood erythrocytes count (nu mber/volume)on 08-12-2022 RBC (Bld) [#/Vol] 4.29 10*6/uL 4.2-5.4 [facility] Work Phone: Blood hemoglobin measurement (mass/volume)on 08-12-2022 Hemoglobin (Bld) [Mass/Vol] 14.1 g/dL 12.0-15.0 [facility] Work Phone: Blood lymphocytes/100 leukoc yteson 08-12-2022 Lymphocytes/100 WBC (Bld) 23.0 % 19-41 [facility] Work Phone: Blood monocytes/100 leukocyt eson 08-12-2022 Monocytes/100 WBC (Bld) 4.0 % 0-10 [facility] Work Phone: [phone] Blood platelet mean volumeon 08-12-2022 Platelet mean volume (Bld) [Entitic vol] 8.9 fL 6.2-12.0 [facility] Work Phone: [phone] Determination of erythrocyte mean corpuscular volume (MCV)on 08-12-2022 MCV (RBC) [Entitic vol] 98.8 fL 81-99 [facility] Work Phone: [phone] Glucose Glucometer (BldC) [M ass/Vol]on 08-12-2022 Glucose [Mass/Vol] 186 mg/dL 74-106 [facility] Work Phone: [phone] Comment on above: MANAGEMENT OF PATIEN T CARE PER NURSING PROTOCOL Hematocrit Auto (Bld) [Volum e fraction]on 08-12-2022 Hematocrit (Bld) [Volume fraction] 42.4 % 37-47 [facility] Work Phone: [phone] Laboratory - Chemistry and C hemistry - challengeon 08-12-2022 CO2 [Moles/Vol] 29.0 mmol/L 21.0-32.0 [facility] Work Phone: [phone] Urea nitrogen/Creatinine [Mass ratio] 13.3 mg/mg 10-20 [facility] Work Phone: [phone] Laboratory - Hematology and Cell countson 08-12-2022 Erythrocyte distribution width (RBC) [Entitic vol] 44.1 fL 35.1-43.9 [facility] Work Phone: [phone] Erythrocyte distribution width (RBC) [Ratio] 12.1 % 11.6-14.6 [facility] Work Phone: [phone] Immature granulocytes/100 WBC (Bld) 0.400 % 0.0-0.9 [facility] Work Phone: [phone] Comment on above: IG% - Immature Granu locytes (promyelocytes, myelocytes and metamyelocytes) > 1% indicates that a LEFT SHIFT is Present. MCH (RBC) [Entitic mass] 32.9 pg 27.0-32.0 [facility] Work Phone: [phone] Nucleated RBC/100 WBC (Bld) [Ratio] 0 % 0-5 [facility] Work Phone: [phone] MCHC Auto (RBC) [Mass/Vol]on 08-12-2022 MCHC (RBC) [Mass/Vol] 33.3 g/dL 32-36 [facility] Work Phone: No Panel Informationon 08-12 Estimated Creatinine Clearance Calc 117.82 ml/min [facility] Work Phone: [phone] Estimated GFR (MDRD) Amer 110 mL/min >60 [facility] Work Phone: [phone] Comment on above: GFR Calc Estimated GFR (MDRD) Non-Af Amer 91 mL/min >60 [facility] Work Phone: [phone] Comment on above: Non- GFR Calc Troponin I High Sensitivity 5 pg/mL 3.0-54.0 [facility] Work Phone: Comment on above: Please Note: New Emy t Units and Gender Specific Reference Ranges. For more information see Policy Stat Procedure [facility] High Sensitivity Troponin (TNIH) and attachments. Platelets bldon 08-12-2022 Platelets (Bld) [#/Vol] 264 10*3/uL 150-450 [facility] Work Phone: [phone] Serum or plasma calcium jalyn urement (mass/volume)on 08-12-2022 Calcium [Mass/Vol] 9.5 mg/dL 8.5-10.1 [facility] Work Phone: [phone] Serum or plasma creatinine m easurement (mass/volume)on 08-12-2022 Creatinine [Mass/Vol] 0.83 mg/dL 0.55-1.02 [facility] Work Phone: Comment on above: The validity of the calculated GFR & GFRAA in patients over 70 years has not been determined. Clinical correlation is essential. Serum or plasma urea nitroge n measurement (mass/volume)on 08-12-2022 Urea nitrogen [Mass/Vol] 11 mg/dL 7-18 [facility] Work Phone: Thin prep Papanicolaou smear with manual screeningon 08-12-2022 Thin prep Papanicolaou smear with manual screening 3 5-15 [facility] Work Phone: Absolute lymphocyte counton 06-15-2022 Lymphocytes Auto (Unsp spec) [#/Vol] 3.02 10*3/uL 0.83-4.51 [facility] Work Phone: Basophil percentageon 2021 Basophils/100 WBC (Bld) 0.3 % 0-1 [facility] Work Phone: Bilirubin [Mass/Vol] 0.40 mg/dL 0.20-1.00 [facility] Work Phone: Comment on above: For patients on eltr ombopag therapy, use of Dimension [facility] TBIL is not recommended. Chloride [Moles/Vol] 108 mmol/L 98-107 [facility] Work Phone: Cholesterol [Mass/Vol] 183 mg/dL <200 [facility] Work Phone: Comment on above: <200 mg/dL Desirable 200-240 mg/dL Borderline >240 mg/dL High Risk Eosinophils/100 WBC (Bld) 0.9 % 0-5 [facility] Work Phone: Glucose [Mass/Vol] 130 mg/dL 74-106 [facility] Work Phone: Comment on above: Fasting Glucose resu lt greater than or equal to 126 mg/dL suggests DIABETES MELLITUS per A.D.A. criteria. Neutrophils (Bld) [#/Vol] 6.7 10*3/uL 2.0-7.7 [facility] Work Phone: Neutrophils/100 WBC (Bld) 65.3 % 47-70 [facility] Work Phone: Potassium [Moles/Vol] 3.9 mmol/L 3.5-5.1 [facility] Work Phone: Protein [Mass/Vol] 7.7 g/dL 6.4-8.2 [facility] Work Phone: [phone] Sodium [Moles/Vol] 140 mmol/L 136-145 [facility] Work Phone: [phone] Triglyceride [Mass/Vol] 100 mg/dL <199 [facility] Work Phone: [phone] Comment on above: The drugs N-Acetylcy steine and Metamizole may falsely depress this assay.Serum Triglycerides Reference Interval Normal <150 mg/dL Borderline high 150 - 199 mg/dL High 200 - 499 mg/dL Very High > or = 500 mg/dL WBC (Bld) [#/Vol] 10.2 10*3/uL 4.4-11.0 [facility] Work Phone: [phone] Blood erythrocytes count (nu mber/volume)on 06-15-2022 RBC (Bld) [#/Vol] 4.28 10*6/uL 4.2-5.4 [facility] Work Phone: [phone] Blood hemoglobin measurement (mass/volume)on 06-15-2022 Hemoglobin (Bld) [Mass/Vol] 14.3 g/dL 12.0-15.0 [facility] Work Phone: [phone] Blood lymphocytes/100 leukoc yteson 06-15-2022 Lymphocytes/100 WBC (Bld) 29.7 % 19-41 [facility] Work Phone: [phone] Blood monocytes/100 leukocyt eson 06-15-2022 Monocytes/100 WBC (Bld) 3.4 % 0-10 [facility] Work Phone: [phone] Blood platelet mean volumeon 06-15-2022 Platelet mean volume (Bld) [Entitic vol] 9.0 fL 6.2-12.0 [facility] Work Phone: [phone] Determination of erythrocyte mean corpuscular volume (MCV)on 06-15-2022 MCV (RBC) [Entitic vol] 98.6 fL 81-99 [facility] Work Phone: [phone] Hematocrit Auto (Bld) [Volum e fraction]on 06-15-2022 Hematocrit (Bld) [Volume fraction] 42.2 % 37-47 [facility] Work Phone: [phone] Laboratory - Chemistry and C hemistry - challengeon 06-15-2022 ALP [Catalytic activity/Vol] 58 U/L 45-117 [facility] Work Phone: [phone] ALT [Catalytic activity/Vol] 31 U/L 13-56 [facility] Work Phone: [phone] CO2 [Moles/Vol] 27.0 mmol/L 21.0-32.0 [facility] Work Phone: [phone] Free T4 [Mass/Vol] 1.00 ng/dL 0.76-1.46 [facility] Work Phone: [phone] Globulin (S) [Mass/Vol] 3.9 g/dL 2.2-4.2 [facility] Work Phone: [phone] Urea nitrogen/Creatinine [Mass ratio] 15.2 mg/mg 10-20 [facility] Work Phone: [phone] Laboratory - Hematology and Cell countson 06-15-2022 Erythrocyte distribution width (RBC) [Entitic vol] 42.6 fL 35.1-43.9 [facility] Work Phone: [phone] Erythrocyte distribution width (RBC) [Ratio] 11.9 % 11.6-14.6 [facility] Work Phone: [phone] Immature granulocytes/100 WBC (Bld) 0.400 % 0.0-0.9 [facility] Work Phone: [phone] Comment on above: IG% - Immature Granu locytes (promyelocytes, myelocytes and metamyelocytes) > 1% indicates that a LEFT SHIFT is Present. MCH (RBC) [Entitic mass] 33.4 pg 27.0-32.0 [facility] Work Phone: [phone] Nucleated RBC/100 WBC (Bld) [Ratio] 0 % 0-5 [facility] Work Phone: [phone] MCHC Auto (RBC) [Mass/Vol]on 06-15-2022 MCHC (RBC) [Mass/Vol] 33.9 g/dL 32-36 [facility] Work Phone: No Panel Informationon 06-15 Estimated GFR (MDRD) Amer 97 mL/min >60 [facility] Work Phone: Comment on above: GFR Calc Estimated GFR (MDRD) Non-Af Amer 80 mL/min >60 [facility] Work Phone: Comment on above: Non- GFR Calc Thyroid Stimulating Hormone (TSH) 1.66 uIU/mL 0.358-3.74 [facility] Work Phone: Platelets bldon 06-15-2022 Platelets (Bld) [#/Vol] 319 10*3/uL 150-450 [facility] Work Phone: Serum or plasma albumin jalyn urement (mass/volume)on 06-15-2022 Albumin [Mass/Vol] 3.8 g/dL 3.2-5.0 [facility] Work Phone: Serum or plasma albumin/glob ulin mass ratioon 06-15-2022 Albumin/Globulin [Mass ratio] 1.0 {ratio} 0.9-2.4 [facility] Work Phone: Serum or plasma calcium jalyn urement (mass/volume)on 06-15-2022 Calcium [Mass/Vol] 9.4 mg/dL 8.5-10.1 [facility] Work Phone: [phone] Serum or plasma cholesterol in HDL measurement (mass/volume)on 06-15-2022 Cholesterol in HDL [Mass/Vol] 38 mg/dL >40 [facility] Work Phone: Comment on above: The drugs N-Acetylcy steine and Metamizole may falsely depress this assay. Reference Range HDL <40 mg/dL Low HDL Cholesterol HDL >or= 60 mg/dL High HDL Cholesterol Serum or plasma cholesterol in VLDL measurement (mass/volume)on 06-15-2022 Cholesterol in VLDL [Mass/Vol] 20 mg/dL 5-40 [facility] Work Phone: [phone] Serum or plasma creatinine m easurement (mass/volume)on 06-15-2022 Creatinine [Mass/Vol] 0.92 mg/dL 0.55-1.02 [facility] Work Phone: [phone] Comment on above: The validity of the calculated GFR & GFRAA in patients over 70 years has not been determined. Clinical correlation is essential. Serum or plasma low density lipoprotein (LDL) cholesterol measurement (mass/volume)on 06-15-2022 Cholesterol in LDL [Mass/Vol] 125 mg/dL 0-130 [facility] Work Phone: [phone] Serum or plasma urea nitroge n measurement (mass/volume)on 06-15-2022 Urea nitrogen [Mass/Vol] 14 mg/dL 7-18 [facility] Work Phone: [phone] Thin prep Papanicolaou smear with manual screeningon 06-15-2022 Thin prep Papanicolaou smear with manual screening 16 U/L 15-37 [facility] Work Phone: [phone] Thin prep Papanicolaou smear with manual screening 5 5-15 [facility] Work Phone: [phone] Whole blood hemoglobin A1c/t otal hemoglobin ratio (mass fraction)on 06-15-2022 HbA1c (Bld) [Mass fraction] 6.1 % 3.8-5.6 [facility] Work Phone: Comment on above: Normal < 5.7 % Predi abetic 5.7 - 6.4 % Diabetic >or= 6.5 % Please note range changes. Laboratory - Hematology and Cell countson 06-07-2022 HbA1c (Bld) [Mass fraction] 5.7 % 4.2-6.3 [facility] Work Phone: [phone] Laboratory - Drug toxicology on 11-17-2021 Amphetamines Ql (U) Negative [facility] Work Phone: [phone] Benzodiazepines Ql (U) Negative [facility] Work Phone: [phone] Cannabinoids Screen Ql (U) Positive [facility] Work Phone: [phone] Cocaine Ql (U) Negative [facility] Work Phone: Opiates Ql (U) Negative [facility] Work Phone: No Panel Informationon 11-17 MDMA (Ecstasy) Screen Negative [facility] Work Phone: Urine Barbiturates Screen Negative [facility] Work Phone: Urine Drug Screen Comment [facility] Work Phone: Comment on above: CONFIRMATORY [...] USE TESTMNEMONIC: [facility] Urine Methadone Screen Negative [facility] Work Phone: Urine phencyclidine (PCP) de tectionon 11-17-2021 Phencyclidine Ql (U) Negative [facility] Work Phone: ALLIED HEALTHon 02-21-2021 [facility] HNO ID: [id number] Author: Chaplain Jennifer Service: ? Author Type: Real Time Operator Type: [facility] Filed: 02/21/2021 6:30 PM Note Text: SPIRITUALCARE Spiritual Care Visit- Brief Note Name: Sugey West Date: February 21, 2021 Notes: Dis-charge Patient in need of clothing. Real Time Operator delivered T shirt Real Time Operator Signature: Chaplain Jennifer To contact the Spiritual Care Department: Please call [phone] or Page the On-Call Real Time Operator at pager [phone] Thank you for the opportunity to be of service. This is an electronically created document. IF PRINTED, PLEASE DO NOT REMOVE FROM THE CHART OR MODIFY PRINTED COPY. [facility] HNO ID: [id number] Author: RT Alicia(Edgardo) Service: ? Author Type: [employer] Type: [employer] [facility] Filed: 02/21/2021 3:52 PM Note Text: [...] RT Alicia(Edgardo) February 21, 2021 3:51 PM [facility] HNO ID: [id number] Author: AMIRA Durbin) Service: Radiology Author Type: [employer] Type: [employer] Filed: 02/21/2021 1:56 AM Note Text: [...] RT Gifty(Edgardo) February 21, 2021 1:56 AM [facility] HNO ID: [id number] Author: Chaplain Brenda Service: Spiritual Care Author Type: Real Time Operator Type: Allied Health Filed: 02/21/2021 12:00 PM Note Text: SPIRITUAL CARE PROGRESS NOTE SERVICE DATE: 02/21/2021 SERVICE TIME: 1:32 am Real Time Operator resp'd to trauma alert per [facility] protocol. Patient is being serviced by multiple caregivers. Real Time Operator met with aunt of patient in family room and introduced Spiritual Care department along with follow-up. Aunt grateful as physician updated on patient's status. Real Time Operator escorted aunt to bedside and informed unit that another relative was en route. Real Time Operator on standby if needed further. To contact the Spiritual Care Department: Please call [phone] SIGNATURE: Chaplain Brenda PATIENT NAME: Sugey West DATE: February 21, 2021 TIME: 11:56 AM PAGER/CONTACT #: [phone] Normal [facility] CBC panel Auto (Bld)on 02-21 Erythrocyte distribution width (RBC) [Ratio] 13.2 % Normal 11.5-15.0 [facility] Comment on above: Order Comment: Speci men Type: BLOOD SPECIMEN Performed By: #### 5 8410-2 ####[facility] [id number] [place] [address] Hematocrit (Bld) [Volume fraction] 44.7 % Normal 36.0-46.0 [facility] Comment on above: Order Comment: Speci men Type: BLOOD SPECIMEN Performed By: #### 5 8410-2 ####[facility]ORYCLIA [id number] [place] [address] Hemoglobin (Bld) [Mass/Vol] 15.5 g/dL Normal 11.5-15.5 [facility] Comment on above: Order Comment: Speci men Type: BLOOD SPECIMEN Performed By: #### 5 8410-2 ####[facility]ORYCLIA [id number] [place] [address] MCH (RBC) [Entitic mass] 32.2 pg Normal 26.0-34.0 [facility] Comment on above: Order Comment: Speci men Type: BLOOD SPECIMEN Performed By: #### 5 8410-2 ####[facility]ORYCLIA [id number] [place] [address] MCHC (RBC) [Mass/Vol] 34.7 g/dL Normal 30.5-36.0 [facility] Comment on above: Order Comment: Speci men Type: BLOOD SPECIMEN Performed By: #### 5 8410-2 ####[facility]ORYCLIA [id number] [place] [address] MCV (RBC) [Entitic vol] 92.9 fL Normal 80.0-100.0 [facility] Comment on above: Order Comment: Speci men Type: BLOOD SPECIMEN Performed By: #### 5 8410-2 ####[facility]ORYCLIA [id number] [place] [address] Nucleated RBC (Bld) [#/Vol] 10*3/uL Normal <0.01 [facility] Comment on above: Order Comment: Speci men Type: BLOOD SPECIMEN Performed By: #### 5 8410-2 ####[facility]ORYCLIA [id number] [place] [address] Platelet mean volume (Bld) [Entitic vol] 10.4 fL Normal 9.0-12.7 [facility] Comment on above: Order Comment: Speci men Type: BLOOD SPECIMEN Performed By: #### 5 8410-2 ####[facility]ORYCLIA [id number] [place] [address] Platelets (Bld) [#/Vol] 268 10*3/uL Normal 150-400 [facility] Comment on above: Order Comment: Speci men Type: BLOOD SPECIMEN Performed By: #### 5 8410-2 ####[facility]ORYCLIA [id number] [place] [address] RBC (Bld) [#/Vol] 4.81 10*6/uL Normal 3.90-5.20 [facility] Comment on above: Order Comment: Speci men Type: BLOOD SPECIMEN Performed By: #### 5 8410-2 ####[facility]ORYCLIA [id number] [place] [address] WBC (Bld) [#/Vol] 11.25 10*3/uL High 3.70-11.00 [facility] Comment on above: Order Comment: Speci men Type: BLOOD SPECIMEN Performed By: #### 5 8410-2 ####[facility]ORYCLIA [id number] [place] [address] CNDSon 02-21-2021 [facility] HNO ID: [id number] Author: Antonia Norris MD Service: General Surgery [...] Surgery February 21, 2021 8:54 PM Normal [facility] CT ABD/PEL W IVCONon 021 CT ABD/PEL W IVCON * * *Final Report* * * DATE OF EXAM: Feb 21 2021 2:26AM [facility] 0530 - CT ABD/PEL W [...] Automated exposure control(AEC) and iterative recon RESULT: NATURALIZATION EXAMINER: Unremarkable. THORAX: Motion degrades exam. Within the [...] spine. Details and incidental findings as discussed. Web Offset Press Feeder: ROSIE Transcribe Date/Time: Feb 21 2021 2:40A Dictated by : GEORGE VYAS MD This examination was interpreted and the report reviewed and electronically signed by: GEORGE VYAS MD on Feb 21 2021 2:50AM EST [id number] Normal [facility] CT BRAIN WO IVCONon 02-22-20 CT BRAIN WO IVCON * * *Final Report* * * DATE OF EXAM: Feb 21 2021 2:14AM [facility] 0504 - CT BRAIN WO [...] the patient is able to voluntarily cooperate. Web Offset Press Feeder: ROSIE Transcribe Date/Time: Feb 21 2021 2:18A Dictated by : GEORGE VYAS MD This examination was interpreted and the report reviewed and electronically signed by: GEORGE VYAS MD on Feb 21 2021 2:20AM EST [id number] Normal [facility] CT CERVICAL SPINE WO IVCONon 02-21-2021 CT CERVICAL SPINE WO IVCON * * *Final Report* * * DATE OF EXAM: Feb 21 2021 2:14AM [facility] 0505 - CT CERVICAL SPINE [...] Counting reference: Craniocervical junction. Anatomic Variants: None. Bible Reader (topogram) images: Alignment: Alignment is anatomic. Craniocervical [...] vertebrae with counting from the craniocervical junction. Web Offset Press Feeder: ROSIE Transcribe Date/Time: Feb 21 2021 2:21A Dictated by : GEORGE VYAS MD This examination was interpreted and the report reviewed and electronically signed by: GEORGE VYAS MD on Feb 21 2021 2:28AM EST [id number] Normal [facility] CT CHEST W IVCONon 1 CT CHEST W IVCON * * *Final Report* * * DATE OF EXAM: Feb 21 2021 2:26AM [facility] 0539 - CT CHEST W [...] Automated exposure control(AEC) and iterative recon RESULT: NATURALIZATION EXAMINER: Unremarkable. THORAX: Motion degrades exam. Within the [...] spine. Details and incidental findings as discussed. Web Offset Press Feeder: ROSIE Transcribe Date/Time: Feb 21 2021 2:40A Dictated by : GEORGE VYAS MD This examination was interpreted and the report reviewed and electronically signed by: GEORGE VYAS MD on Feb 21 2021 2:50AM EST [id number] Normal [facility] CT FACIAL BONE/BRIAN WO IVCON on 02-21-2021 CT FACIAL BONE/BRIAN WO IVCON * * *Final Report* * * DATE OF EXAM: Feb 21 2021 2:14AM [facility] 0507 - CT FACIAL BONE/BRIAN [...] Reduction Employed: Iterative recon COMPARISON: None. RESULT: Bible Reader (topogram) images: No additional findings. Soft Tissues: [...] in the left nasal cavity and nasopharynx. Web Offset Press Feeder: PSCB Transcribe Date/Time: Feb 21 2021 2:30A Dictated by : MATTIE FRYE MD This examination was interpreted and the report reviewed and electronically signed by: MATTIE FRYE MD on Feb 21 2021 2:47AM EST [id number] Normal [facility] CT LUMBAR SPINE W RECON DATA -NBon 02-21-2021 CT LUMBAR SPINE W RECON DATA -NB * * *Final Report* * * DATE OF EXAM: Feb 21 2021 2:26AM [facility] 0481 - CT LUMBAR SPINE [...] Automated exposure control(AEC) and iterative recon RESULT: NATURALIZATION EXAMINER: Unremarkable. THORAX: Motion degrades exam. Within the [...] spine. Details and incidental findings as discussed. Web Offset Press Feeder: PSCB Transcribe Date/Time: Feb 21 2021 2:40A Dictated by : GEORGE VYAS MD This examination was interpreted and the report reviewed and electronically signed by: GEORGE VYAS MD on Feb 21 2021 2:50AM EST [id number] Normal [facility] CT T-SPINE W RECON DATA -NBo n 02-21-2021 CT T-SPINE W RECON DATA -NB * * *Final Report* * * DATE OF EXAM: Feb 21 2021 2:26AM [facility] 0485 - CT T-SPINE W [...] Automated exposure control(AEC) and iterative recon RESULT: NATURALIZATION EXAMINER: Unremarkable. THORAX: Motion degrades exam. Within the [...] spine. Details and incidental findings as discussed. Web Offset Press Feeder: ROSIE Transcribe Date/Time: Feb 21 2021 2:40A Dictated by : GEORGE VYAS MD This examination was interpreted and the report reviewed and electronically signed by: GEORGE VYAS MD on Feb 21 2021 2:50AM EST [id number] Normal [facility] Comprehensive metabolic 2000 panelon 02-21-2021 Albumin [Mass/Vol] 3.9 g/dL Normal 3.9-4.9 [facility] Comment on above: Order Comment: Speci men Type: BLOOD SPECIMEN Performed By: #### 2 4323-8 ####[facility]ORYCLIA [id number] [place] [address] ALP [Catalytic activity/Vol] 76 U/L Normal 34-123 [facility] Comment on above: Order Comment: Speci men Type: BLOOD SPECIMEN Performed By: #### 2 4323-8 ####[facility]ORYCLIA [id number] [place] [address] ALT With P-5'-P [Catalytic activity/Vol] Normal [facility] Comment on above: Order Comment: Speci men Type: BLOOD SPECIMEN Result Comment: Unab le to assay due to interference from hemolysis. Suggest reorder as clinically indicated. Performed By: #### 2 4323-8 ####[facility]ORYCLIA [id number] [place] [address] Anion gap [Moles/Vol] 16 mmol/L Normal 9-18 [facility] Comment on above: Order Comment: Speci men Type: BLOOD SPECIMEN Performed By: #### 2 4323-8 ####[facility] [id number] [place] [address] AST With P-5'-P [Catalytic activity/Vol] Normal [facility] Comment on above: Order Comment: Speci men Type: BLOOD SPECIMEN Result Comment: Unab le to assay due to interference from hemolysis. Suggest reorder as clinically indicated. Performed By: #### 2 4323-8 ####[facility]ORYCLIA [id number] [place] [address] Bilirubin [Mass/Vol] 0.2 mg/dL Normal 0.2-1.3 [facility] Comment on above: Order Comment: Speci men Type: BLOOD SPECIMEN Performed By: #### 2 4323-8 ####[facility]ORY[facility]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 Eliazar Amos Work Phone: [facility] 10-12-2023 14:13-0500 Diastolic blood pressure 82 mm[Hg] Dr. Eliazar Amos Work Phone: [facility] 10-12-2023 14:13-0500 Heart rate 88 /min Dr. Eliazar Amos Work Phone: [facility] 10-12-2023 14:13-0500 Respiratory rate 16 /min Dr. Eliazar Amos Work Phone: [facility] 10-12-2023 14:13-0500 SaO2% (BldA) [Mass fraction] 97 % Dr. Eliazar Amos Work Phone: [facility] 10-12-2023 14:13-0500 Systolic blood pressure 120 mm[Hg] Dr. Eliazar Amos Work Phone: [facility] 08-09-2023 09:28-0500 Body temperature 98.49 [degF] Paige Cioce [employer] ENGINEER Work Phone: [facility] 08-09-2023 09:28-0500 Body weight 129 kg Paige Cioce [employer] H[employer]WARE ENGINEER Work Phone: [facility] 08-09-2023 09:28-0500 Diastolic blood pressure 90 mm[Hg] Paige Cioce [employer] H[employer]WARE ENGINEER Work Phone: [facility] 08-09-2023 09:28-0500 Heart rate 96 /min Paige Cioce [employer] H[employer]WARE ENGINEER Work Phone: [facility] 08-09-2023 09:28-0500 SaO2% (BldA) [Mass fraction] 97 % Paige Cioce [employer] H[employer]WARE ENGINEER Work Phone: [facility] 08-09-2023 09:28-0500 Systolic blood pressure 140 mm[Hg] Paige Cioce [employer] H[employer]WARE ENGINEER Work Phone: [facility] 08-03-2023 14:42-0500 Body height 180.[address] Eliazar Amos Work Phone: [facility] 08-03-2023 14:42-0500 Body mass index (BMI) [Ratio] 39 kg/m2 Dr. Eliazar Amos Work Phone: [facility] 08-03-2023 14:42-0500 Body temperature 98.9 [degF] Dr. Eliazar Amos Work Phone: [facility] 08-03-2023 14:42-0500 Body weight [address] Eliazar Amos Work Phone: [facility] 08-03-2023 14:42-0500 Diastolic blood pressure 82 mm[Hg] Dr. Eliazar Amos Work Phone: [facility] 08-03-2023 14:42-0500 Heart rate 86 /min Dr. Eliazar Amos Work Phone: [facility] 08-03-2023 14:42-0500 Respiratory rate 16 /min Dr. Eliazar Amos Work Phone: [facility] 08-03-2023 14:42-0500 SaO2% (BldA) [Mass fraction] 97 % Dr. Eliazar Amos Work Phone: [facility] 08-03-2023 14:42-0500 Systolic blood pressure 122 mm[Hg] Dr. Eliazar Amos Work Phone: [facility] 06-21-2023 12:11-0400 Body height 180.3 cm Paige Cioce [employer] ENGINEER Work Phone: [facility] 06-21-2023 12:11-0400 Body weight 123.83 kg Paige Cioce [employer] H[employer]WARE ENGINEER Work Phone: [facility] 06-21-2023 12:11-0400 Diastolic blood pressure 84 mm[Hg] Paige Cioce [employer] H[employer] ENGINEER Work Phone: [facility] 06-21-2023 12:11-0400 Heart rate 69 /min Paige Cioce [employer]ELECT[employer]ICAL HARDWARE ENGINEER Work Phone: [facility] 06-21-2023 12:11-0400 SaO2% (BldA) [Mass fraction] 95 % Paige Cioce [employer] H[employer]WARE ENGINEER Work Phone: [facility] 06-21-2023 12:11-0400 Systolic blood pressure 138 mm[Hg] Paige Cioce [employer] H[employer]WARE ENGINEER Work Phone: [facility] 05-17-2023 09:52-0400 Body height 180.3 cm Paige Cioce [employer] H[employer]WARE ENGINEER Work Phone: [facility] 05-17-2023 09:52-0400 Body temperature 97.59 [degF] Paige Cioce [employer] H[employer]WARE ENGINEER Work Phone: [facility] 05-17-2023 09:52-0400 Body weight 119.93 kg Paige Cioce [employer] H[employer]WARE ENGINEER Work Phone: [facility] 05-17-2023 09:52-0400 Heart rate 68 /min Paige Cioce [employer]ELECT[employer] HARDWARE ENGINEER Work Phone: [facility] 05-17-2023 09:52-0400 SaO2% (BldA) [Mass fraction] 96 % Paige Cioce [employer] H[employer]WARE ENGINEER Work Phone: [facility] 05-11-2023 14:52-0400 Body mass index (BMI) [Ratio] 37.2 kg/m2 Dr. Eliazar Amos Work Phone: [facility] 05-11-2023 14:52-0400 Body temperature 96.2 [degF] Dr. Eliazar Amos Work Phone: [facility] 05-11-2023 14:52-0400 Body weight 121.[address] Eliazar Amos Work Phone: [facility] 05-11-2023 14:52-0400 Diastolic blood pressure 90 mm[Hg] Dr. Eliazar Amos Work Phone: [facility] 05-11-2023 14:52-0400 Heart rate 87 /min Dr. Eliazar Amos Work Phone: [facility] 05-11-2023 14:52-0400 Respiratory rate 16 /min Dr. Eliazar Amos Work Phone: [facility] 05-11-2023 14:52-0400 SaO2% (BldA) [Mass fraction] 97 % Dr. Eliazar Amos Work Phone: [facility] 05-11-2023 14:52-0400 Systolic blood pressure 120 mm[Hg] Dr. Eliazar Amos Work Phone: [facility] 05-03-2023 15:23-0400 Body mass index (BMI) [Ratio] 36.8 kg/m2 Dr. Eliazar Amos Work Phone: [facility] 05-03-2023 15:23-0400 Body temperature 96.8 [degF] Dr. Eliazar Amos Work Phone: [facility] 05-03-2023 15:23-0400 Body weight 119.[address] Eliazar Amos Work Phone: [facility] 05-03-2023 15:23-0400 Diastolic blood pressure 88 mm[Hg] Dr. Eliazar Amos Work Phone: [facility] 05-03-2023 15:23-0400 Heart rate 73 /min Dr. Eliazar Amos Work Phone: [facility] 05-03-2023 15:23-0400 Respiratory rate 18 /min Dr. Eliazar Amos Work Phone: [facility] 05-03-2023 15:23-0400 SaO2% (BldA) [Mass fraction] 98 % Dr. Eliazar Amos Work Phone: [facility] 05-03-2023 15:23-0400 Systolic blood pressure 128 mm[Hg] Dr. Eliazar Amos Work Phone: [facility] 05-02-2023 11:43-0400 Body mass index (BMI) [Ratio] 36.8 kg/m2 Dr. Eliazar Amos Work Phone: [facility] 05-02-2023 11:43-0400 Body temperature 98.1 [degF] Dr. Eliazar Amos Work Phone: [facility] 05-02-2023 11:43-0400 Body weight 119.[address] Eliazar Amos Work Phone: [facility] 05-02-2023 11:43-0400 Diastolic blood pressure 80 mm[Hg] Dr. Eliazar Amos Work Phone: [facility] 05-02-2023 11:43-0400 Heart rate 81 /min Dr. Eliazar Amos Work Phone: [facility] 05-02-2023 11:43-0400 Respiratory rate 17 /min Dr. Eliazar Amos Work Phone: [facility] 05-02-2023 11:43-0400 SaO2% (BldA) [Mass fraction] 97 % Dr. Eliazar Amos Work Phone: [facility] 05-02-2023 11:43-0400 Systolic blood pressure 100 mm[Hg] Dr. Eliazar Amos Work Phone: [facility] 04-05-2023 14:22-0400 Body height 180.3 cm Paige Cioce [employer] ENGINEER Work Phone: [facility] 04-05-2023 14:22-0400 Body weight 122.02 kg Paige Cioce [employer] H[employer]WARE ENGINEER Work Phone: [facility] 04-05-2023 14:22-0400 Diastolic blood pressure 82 mm[Hg] Paige Cioce [employer] H[employer]WARE ENGINEER Work Phone: [facility] 04-05-2023 14:22-0400 Heart rate 68 /min Paige Cioce [employer]ING [employer]ELECT[employer]ICAL HARDWARE ENGINEER Work Phone: [facility] 04-05-2023 14:22-0400 Respiratory rate 14 /min Paige Cioce [employer]LECT[employer]ICAL HARDWARE ENGINEER Work Phone: [facility] 04-05-2023 14:22-0400 Systolic blood pressure 112 mm[Hg] Paige Cioce [employer]ELECT[employer]ICAL H[employer]WARE ENGINEER Work Phone: [facility] 12-20-2022 09:06-0400 Body height 180.[address] Eliazar Amos Work Phone: [facility] 12-20-2022 09:06-0400 Body mass index (BMI) [Ratio] 38.6 kg/m2 Dr. Eliazar Amos Work Phone: [facility] 12-20-2022 09:06-0400 Body temperature 97.8 [degF] Dr. Eliazar Amos Work Phone: [facility] 12-20-2022 09:06-0400 Body weight 125.[address] Eliazar Amos Work Phone: [facility] 12-20-2022 09:06-0400 Diastolic blood pressure 86 mm[Hg] Dr. Eliazar Amos Work Phone: [facility] 12-20-2022 09:06-0400 Heart rate 78 /min Dr. Eliazar Amos Work Phone: [facility] 12-20-2022 09:06-0400 Respiratory rate 17 /min Dr. Eliazar Amos Work Phone: [facility] 12-20-2022 09:06-0400 SaO2% (BldA) [Mass fraction] 98 % Dr. Eliazar Amos Work Phone: [facility] 12-20-2022 09:06-0400 Systolic blood pressure 120 mm[Hg] Dr. Eliazar Amos Work Phone: [facility] 12-09-2022 17:06-0400 Diastolic Blood Pressure Non-Invasive 96 1 [facility] DO [facility] [place] 12-09-2022 17:06-0400 Heart rate 67 /min SPRING ZOYAHuddle DO [facility] [place] 12-09-2022 17:06-0400 Respiratory rate 16 /min [facility] DO [facility] [place] 12-09-2022 17:06-0400 Systolic Blood Pressure Non-Invasive 145 1 SPRING REICHFIELD DO [facility] [place] 12-09-2022 15:35-0400 Body height 180 cm SPR[place] REICHFIELD DO [facility] [place] 12-09-2022 15:35-0400 Body temperature 97.52 [degF] SPRING REICHFIELD DO [facility] [place] 12-09-2022 15:35-0400 Body weight 110 kg SPRING REICHFIELD DO [facility] [place] 12-09-2022 15:35-0400 Diastolic Blood Pressure Non-Invasive 93 1 SPR[place] REICHFIELD DO [facility] [place] 12-09-2022 15:35-0400 Heart rate 75 /min SPRING REICHFIELD DO [facility] [place] 12-09-2022 15:35-0400 Respiratory rate 16 /min SPRING REICHFIELD DO [facility] [place] 12-09-2022 15:35-0400 Systolic Blood Pressure Non-Invasive 134 1 SPRING REICHFIELD DO [facility] [place] 12-07-2022 14:43-0400 Diastolic Blood Pressure Non-Invasive [address] NAYELY FISHER MD [facility] [place] 12-07-2022 14:43-0400 Heart rate 90 /min DR NAYELY FISHER MD [facility] [place] 12-07-2022 14:43-0400 Reason For Taking VItal Signs DR NAYELY FISHER MD [facility] [place] 12-07-2022 14:43-0400 Respiratory rate 18 /min DR NAYELY FISHER MD [facility] [place] 12-07-2022 14:43-0400 Systolic Blood Pressure Non-Invasive [address] NAYELY FISHER MD [facility] [place] 12-07-2022 12:52-0400 Diastolic Blood Pressure Non-Invasive [address] NAYELY FISHER MD [facility] [place] 12-07-2022 12:52-0400 Heart rate 68 /min DR NAYELY FISHER MD [facility] [place] 12-07-2022 12:52-0400 Respiratory rate 16 /min DR NAYELY FISHER MD [facility] [place] 12-07-2022 12:52-0400 Systolic Blood Pressure Non-Invasive [address] NAYELY FISHER MD [facility] [place] 12-07-2022 12:30-0400 Body temperature 96.98 [degF] DR NAYELY FISHER MD [facility] [place] 12-07-2022 12:30-0400 Diastolic Blood Pressure Non-Invasive [address] NAYELY FISHER MD [facility] [place] 12-07-2022 12:30-0400 Heart rate 100 /min DR NAYELY FISHER MD [facility] [place] 12-07-2022 12:30-0400 Respiratory rate 18 /min DR NAYELY FISHER MD [facility] [place] 12-07-2022 12:30-0400 Systolic Blood Pressure Non-Invasive [address] NAYELY FISHER MD [facility] [place] 08-12-2022 19:45-0500 Respiratory rate 16 /min Dr. Eliazar Amos Work Phone: [facility] Work Phone: 08-12-2022 18:14-0500 Heart rate 103 /min Dr. Eliazar Amos Work Phone: [facility] Work Phone: 08-12-2022 18:14-0500 SaO2% (BldA) [Mass fraction] 99 % Dr. Eliazar Amos Work Phone: [facility] Work Phone: 08-12-2022 15:59-0500 Body height 180.[address] Eliazar Amos Work Phone: [facility] Work Phone: 08-12-2022 15:59-0500 Body mass index (BMI) [Ratio] 38.5 kg/m2 Dr. Eliazar Amos Work Phone: [facility] Work Phone: 08-12-2022 15:59-0500 Body temperature 98.3 [degF] Dr. Eliazar Amos Work Phone: [facility] Work Phone: 08-12-2022 15:59-0500 Body weight 125.[address] Eliazar Amos Work Phone: [facility] Work Phone: 08-12-2022 15:59-0500 Diastolic blood pressure 88 mm[Hg] Dr. Eliazar Amos Work Phone: [facility] Work Phone: 08-12-2022 15:59-0500 Systolic blood pressure 153 mm[Hg] Dr. Eliazar Amos Work Phone: [facility] Work Phone: 07-10-2022 13:47-0500 Body temperature 98.6 [degF] DEAN LYON MD [facility] [place] 07-10-2022 13:47-0500 Diastolic blood pressure 80 mm[Hg] DEAN LYON MD [facility] [place] 07-10-2022 13:47-0500 Heart rate 85 /min DEAN LYON MD [facility] [place] 07-10-2022 13:47-0500 Respiratory rate 18 /min DEAN LYON MD [facility] [place] 07-10-2022 13:47-0500 Systolic blood pressure 123 mm[Hg] DEAN LYON MD [facility] [place] 06-25-2022 13:53-0400 Heart rate 89 /min Dr. Eliazar Amos Work Phone: [facility] Work Phone: 06-25-2022 13:53-0400 Respiratory rate 16 /min Dr. Eliazar Amos Work Phone: [facility] Work Phone: 06-25-2022 13:09-0400 Body height 180.[address] Eliazar Amos Work Phone: [facility] Work Phone: 06-25-2022 13:09-0400 Body mass index (BMI) [Ratio] 37.5 kg/m2 Dr. Eliazar Amos Work Phone: [facility] Work Phone: 06-25-2022 13:09-0400 Body temperature 97.5 [degF] Dr. Eliazar Amos Work Phone: [facility] Work Phone: 06-25-2022 13:09-0400 Body weight 122.[address] Eliazar Amos Work Phone: [facility] Work Phone: 06-25-2022 13:09-0400 Diastolic blood pressure 137 mm[Hg] Dr. Eliazar Amos Work Phone: [facility] Work Phone: 06-25-2022 13:09-0400 SaO2% (BldA) [Mass fraction] 98 % Dr. Eliazar Amos Work Phone: [facility] Work Phone: 06-25-2022 13:09-0400 Systolic blood pressure 163 mm[Hg] Dr. Eliazar Amos Work Phone: [facility] Work Phone: 06-07-2022 14:33-0400 Body height 180.[address] Eliazar Amos Work Phone: [facility] Work Phone: 06-07-2022 14:33-0400 Body mass index (BMI) [Ratio] 40 kg/m2 Dr. Eliazar Amos Work Phone: [facility] Work Phone: 06-07-2022 14:33-0400 Body temperature 97.1 [degF] Dr. Eliazar Amos Work Phone: [facility] Work Phone: 06-07-2022 14:33-0400 Body weight 130.[address] Eliazar Amos Work Phone: [facility] Work Phone: 06-07-2022 14:33-0400 Diastolic blood pressure 92 mm[Hg] Dr. Eliazar Amos Work Phone: [facility] Work Phone: 06-07-2022 14:33-0400 Heart rate 69 /min Dr. Eliazar Amos Work Phone: [facility] Work Phone: 06-07-2022 14:33-0400 Respiratory rate 14 /min Dr. Eliazar Amos Work Phone: [facility] Work Phone: 06-07-2022 14:33-0400 SaO2% (BldA) [Mass fraction] 97 % Dr. Eliazar Amos Work Phone: [facility] Work Phone: 06-07-2022 14:33-0400 Systolic blood pressure 142 mm[Hg] Dr. Eliazar Amos Work Phone: [facility] Work Phone: 04-04-2022 22:16-0400 Body height 180.[address] PATRIA PARRA DO [facility] [place] 04-04-2022 22:16-0400 Body temperature 98.06 [degF] DR PATRIA PARRA DO [facility] [place] 04-04-2022 22:16-0400 Body weight 118.[address] PATRIA PARRA DO [facility] [place] 04-04-2022 22:16-0400 Diastolic blood pressure 90 mm[Hg] DR PATRIA PARRA DO [facility] [place] 04-04-2022 22:16-0400 Heart rate 75 /min DR PATRIA PARRA DO [facility] [place] 04-04-2022 22:16-0400 Respiratory rate 18 /min DR PATRIA PARRA DO [facility] [place] 04-04-2022 22:16-0400 Systolic blood pressure 135 mm[Hg] DR PATRIA PARRA DO [facility] [place] 02-16-2022 14:15-0400 Body height 177 cm MARIYA DURESKA DO [facility] [place] 02-16-2022 14:15-0400 Body temperature 98.42 [degF] MARIYA DURESKA DO [facility] [place] 02-16-2022 14:15-0400 Body weight 122 kg MARIYA DURESKA DO [facility] [place] 02-16-2022 14:15-0400 Diastolic blood pressure 89 mm[Hg] MARIYA DURESKA DO [facility] [place] 02-16-2022 14:15-0400 Heart rate 110 /min MARIYA DURESKA DO [facility] [place] 02-16-2022 14:15-0400 Respiratory rate 18 /min MARIYA DURESKA DO [facility] [place] 02-16-2022 14:15-0400 Systolic blood pressure 135 mm[Hg] MARIYA DURESKA DO [facility] [place] 12-26-2021 16:10-0400 Body temperature 97.7 [degF] DR PATRIA PARRA DO [facility] [place] 12-26-2021 16:10-0400 Diastolic blood pressure 84 mm[Hg] DR PATRIA PARRA DO [facility] [place] 12-26-2021 16:10-0400 Heart rate 94 /min DR PATRIA PARRA DO [facility] [place] 12-26-2021 16:10-0400 Respiratory rate 18 /min DR PATRIA PARRA DO [facility] [place] 12-26-2021 16:10-0400 Systolic blood pressure 122 mm[Hg] DR PATRIA PARRA DO [facility] [place] 12-08-2021 17:13-0400 Body height 180.[address] Maren Sultana Work Phone: [facility] Work Phone: 12-08-2021 17:13-0400 Body mass index (BMI) [Ratio] 40 kg/m2 Dr. Maren Sultana Work Phone: [facility] Work Phone: 12-08-2021 17:13-0400 Body temperature 96.7 [degF] Dr. Maren Sultana Work Phone: [facility] Work Phone: 12-08-2021 17:13-0400 Body weight 130.[address] Maren Sultana Work Phone: [facility] Work Phone: 12-08-2021 17:13-0400 Diastolic blood pressure 122 mm[Hg] Dr. Maren Sultana Work Phone: [facility] Work Phone: 12-08-2021 17:13-0400 Heart rate 76 /min Dr. Maren Sultana Work Phone: [facility] Work Phone: 12-08-2021 17:13-0400 Respiratory rate 15 /min Dr. Maren Sultana Work Phone: [facility] Work Phone: 12-08-2021 17:13-0400 SaO2% (BldA) [Mass fraction] 98 % Dr. Maren Sultana Work Phone: [facility] Work Phone: 12-08-2021 17:13-0400 Systolic blood pressure 144 mm[Hg] Dr. Maren Sultana Work Phone: [facility] Work Phone: 11-17-2021 14:46-0400 Body mass index (BMI) [Ratio] 39.4 kg/m2 Dr. Maren Sultana Work Phone: [facility] Work Phone: 11-17-2021 14:46-0400 Body temperature 98.3 [degF] Dr. Maren Sultana Work Phone: [facility] Work Phone: 11-17-2021 14:46-0400 Body weight 128.[address] Maren Sultana Work Phone: [facility] Work Phone: 11-17-2021 14:46-0400 Diastolic blood pressure 82 mm[Hg] Dr. Maren Sultana Work Phone: [facility] Work Phone: 11-17-2021 14:46-0400 Heart rate 90 /min Dr. Maren Sultana Work Phone: [facility] Work Phone: 11-17-2021 14:46-0400 Respiratory rate 14 /min Dr. Maren Sultana Work Phone: [facility] Work Phone: 11-17-2021 14:46-0400 SaO2% (BldA) [Mass fraction] 98 % Dr. Maren Sultana Work Phone: [facility] Work Phone: 11-17-2021 14:46-0400 Systolic blood pressure 126 mm[Hg] Dr. Maren Sultana Work Phone: [facility] Work Phone: 10-28-2021 13:27-0500 Body mass index (BMI) [Ratio] 40 kg/m2 Dr. Maren Sultana Work Phone: [facility] Work Phone: 10-28-2021 13:27-0500 Body temperature 97.7 [degF] Dr. Maren Sultana Work Phone: [facility] Work Phone: 10-28-2021 13:27-0500 Body weight 130.[address] Maren Sultana Work Phone: [facility] Work Phone: 10-28-2021 13:27-0500 Heart rate 67 /min Dr. Maren Sultana Work Phone: [facility] Work Phone: 10-28-2021 13:27-0500 Respiratory rate 16 /min Dr. Maren Sultana Work Phone: [facility] Work Phone: 10-28-2021 13:27-0500 SaO2% (BldA) [Mass fraction] 97 % Dr. Maren Sultana Work Phone: [facility] Work Phone: 09-02-2021 12:19-0500 Body mass index (BMI) [Ratio] 38.9 kg/m2 Dr. Maren Sultana Work Phone: [facility] Work Phone: 09-02-2021 12:19-0500 Body temperature 95.9 [degF] Dr. Maren Sultana Work Phone: [facility] Work Phone: 09-02-2021 12:19-0500 Body weight 126.[address] Maren Sultana Work Phone: [facility] Work Phone: 09-02-2021 12:19-0500 Diastolic blood pressure 86 mm[Hg] Dr. Maren Sultana Work Phone: [facility] Work Phone: 09-02-2021 12:19-0500 Heart rate 90 /min Dr. Maren Sultana Work Phone: [facility] Work Phone: 09-02-2021 12:19-0500 Respiratory rate 16 /min Dr. Maren Sultana Work Phone: [facility] Work Phone: 09-02-2021 12:19-0500 SaO2% (BldA) [Mass fraction] 97 % Dr. Maren Sultana Work Phone: [facility] Work Phone: 09-02-2021 12:19-0500 Systolic blood pressure 124 mm[Hg] Dr. Maren Sultana Work Phone: [facility] Work Phone: Encounters Encounter Date Encounter Type Care Provider Facility Start: 05-30-2025 End: 05-30-2025 Emergency department patient visit Eliazar Amos Facility:[facility] Start: 05-16-2025 End: 05-16-2025 Emergency department patient visit Dr. Eliazar Amos MD Work Phone: -Emergency Department Work Phone: Start: 05-07-2025 End: 05-07-2025 Nursing evaluation of patient and report Dulce Smith RN Work Phone: Endocrinology Comment on above: Diabetes mellitus tr eated with injections of non-insulin medication (HCC) Start: 05-07-2025 End: 05-07-2025 Patient encounter procedure Paige Muller FORGING PRESS [employer]TER UP.ELECTRICAL HARDWARE ENGINEER Work Phone: Endocrinology Comment on above: Diabetes mellitus tr eated with injections of non-insulin medication (HCC) (Primary Dx); Obesity, Class III, BMI 40-49.9 (morbid obesity) (HCC); Poorly controlled type 2 diabetes mellitus (HCC) Start: 05-07-2025 End: 05-07-2025 ambulatory ELIAZAR AMOS Facility:[facility] Start: 05-02-2025 End: 05-02-[address] Eliazar Amos MD -[facility] Work Phone: Start: 05-02-2025 End: 05-02-[address] Eliazar Amos MD Work Phone: -[facility] Start: 04-08-2025 End: 04-08-2025 Emergency department patient visit Dr. Eliazar Amos MD Work Phone: -Emergency Department Work Phone: Start: 03-20-2025 End: 03-20-[address] Eliazar Amos MD -[facility] Work Phone: Start: 03-20-2025 End: 03-20-[address] Eliazar Amos MD Work Phone: -[place] [facility] Start: 03-18-2025 End: 03-18-2025 Emergency department patient visit Dr. Eliazar Amos MD Work Phone: -Emergency Department Work Phone: Start: 02-17-2025 ambulatory Eliazar Alvaradoi ty:[facility] Start: 01-20-2025 End: 01-20-2025 Telephone encounter Paige Muller [employer]GING PRESS SETTER UP.ELECTRICAL HARDWARE ENGINEER Work Phone: [facility] [place] Comment on above: Insurance Authorizat ion (OZEMPIC) 1 mg/dose (4 mg/3 mL)) Start: 01-17-2025 End: 01-17-2025 Emergency department patient visit Dr. Eliazar Amos MD Work Phone: -Emergency Department Work Phone: Start: 01-16-2025 End: 01-20-2025 Telephone encounter Paige Muller FORGING PRESS SETTER UP.ELECTRICAL HARDWARE ENGINEER Work Phone: [facility] [place] Comment on above: Medication Preauthor ization Start: 01-02-2025 End: 01-14-2025 Telephone encounter Paige Muller FORGING PRESS SETTER UP.ELECTRICAL HARDWARE ENGINEER Work Phone: [facility] [place] Comment on above: Insurance Authorizat ion ( (MOUNJARO) 5 mg/0.5 mL); Medication Problem Start: 01-01-2025 End: 01-01-2025 Patient encounter procedure Paige Muller FORGING PRESS SETTER UP.ELECTRICAL HARDWARE ENGINEER Work Phone: Endocrinology Comment on above: Diabetes mellitus tr eated with injections of non-insulin medication (HCC) (Primary Dx) Start: 01-01-2025 End: 01-01-2025 ambulatory ELIAZAR AMOS Facility:[facility] Start: 11-15-2024 End: 11-15-[address] Eliazar Amos MD Work Phone: [facility] Work Phone: Start: 11-15-2024 End: 11-15-[address] Eliazar Amos MD -Laboratory, Specimen Work Phone: Start: 11-15-2024 End: 11-15-[address] Eliazar Amos MD -[facility] Work Phone: Start: 11-15-2024 End: 11-15-2024 ambulatory Eliazar Amos Facility:[facility] Start: 11-15-2024 End: 11-15-2024 ambulatory Eliazar Amos Facility:[facility] Start: 11-07-2024 End: 11-07-2024 Telephone encounter Paige Muller FORGING PRESS SETTER UP.ELECTRICAL HARDWARE ENGINEER Work Phone: Endocrinology Comment on above: Appointment Office V erification Start: 11-06-2024 End: 11-06-[address] Delores Begum MD -[facility] Work Phone: Start: 11-06-2024 End: 11-06-2024 ambulatory Delores Begum Facility:[facility] Start: 10-30-2024 End: 10-30-2024 ambulatory Paige Hectoroccyn FORGING PRESS SETTER UP.ELECTRICAL HARDWARE ENGINEER Work Phone: Endocrinology Comment on above: Mounjaro Denial Start: 10-30-2024 End: 10-30-2024 E-mail encounter from caregiver Paige Muller APRN.ELECTRICAL HARDWARE ENGINEER Work Phone: Endocrinology Start: 10-28-2024 End: 10-29-2024 Telephone encounter Paige Muller FORGING PRESS SETTER UP.ELECTRICAL HARDWARE ENGINEER Work Phone: Endocrinology Comment on above: Patient Question (Re quest medication change) Start: 10-14-2024 End: 10-15-2024 Emergency department patient visit Dr. Shlomo Santizo DO -Emergency Department Work Phone: Start: 10-10-2024 End: 10-10-2024 Refill Paige Hectoroce FORGING PRESS SETTER UP.ELECTRICAL HARDWARE ENGINEER Work Phone: Endocrinology Comment on above: Refill Request Start: 09-24-2024 End: 09-24-2024 Telephone encounter Pagie Muller FORGING PRESS SETTER UP.ELECTRICAL HARDWARE ENGINEER Work Phone: Endocrinology Comment on above: Prior Authorization freestyle test strips Start: 09-23-2024 End: 09-23-2024 Refill Paige Rober Cioce FORGING PRESS SETTER UP.ELECTRICAL HARDWARE ENGINEER Work Phone: Endocrinology Comment on above: Refill Request Start: 09-07-2024 End: 09-07-2024 Emergency department patient visit Mona Collazo DO Work Phone: [facility] Comment on above: URI with cough and c ongestion (Primary Dx); Left otitis media, unspecified otitis media type; Pharyngitis, unspecified etiology Start: 07-25-2024 End: 07-25-2024 ambulatory KATIE BRIZUELA Facility:[facility] LOC Start: 07-25-2024 End: 07-25-2024 Office outpatient visit 15 minutes Katie Brizuela MD Work Phone: [facility] Comment on above: Acute upper respirat ory infection (Primary Dx) Start: 07-19-2024 End: 07-19-2024 ambulatory Eliazar Amos Facility:[facility] Start: 06-26-2024 End: 06-27-2024 Telephone encounter Paige Muller FORGING PRESS SETTER UP.ELECTRICAL HARDWARE ENGINEER Work Phone: Endocrinology Comment on above: Refill Request (trul icity) Start: 05-31-2024 End: 05-31-2024 ambulatory Paige Muller APRN.ELECTRICAL HARDWARE ENGINEER Work Phone: Endocrinology Comment on above: Trulicity Start: 05-31-2024 End: 05-31-2024 E-mail encounter from caregiver Paige Muller APRN.ELECTRICAL HARDWARE ENGINEER Work Phone: Endocrinology Start: 05-27-2024 End: 05-27-2024 Orders Only Paige Mullre FORGING PRESS SETTER UP.ELECTRICAL HARDWARE ENGINEER Work Phone: Endocrinology Comment on above: Diabetes mellitus tr eated with injections of non-insulin medication (HCC) (Primary Dx) Start: 05-24-2024 End: 05-25-2024 Telephone encounter Paige Muller FORGING PRESS SETTER UP.ELECTRICAL HARDWARE ENGINEER Work Phone: Endocrinology Comment on above: Medication Problem Start: 05-02-2024 End: 05-02-2024 Emergency department patient visit [facility] Start: 02-20-2024 Refill Paige Muller FORGING PRESS SETTER UP.ELECTRICAL HARDWARE ENGINEER Work Phone: Endocrinology Comment on above: Refill Request Start: 02-13-2024 Telephone encounter Paige ivy FORGING PRESS SETTER UP.ELECTRICAL HARDWARE ENGINEER Work Phone: Endocrinology Comment on above: Medication Problem; Results; Prior Auth Appeal (Unruly) Start: 01-25-2024 Telephone encounter Paige ivy FORGING PRESS SETTER UP.ELECTRICAL HARDWARE ENGINEER Work Phone: Endocrinology Comment on above: Prior Authorization Unruly (Please resend PA in 3 days, to [facility] through [employer]. Not available yet//[place]) Start: 01-24-2024 End: 01-24-2024 Patient encounter procedure Paige Muller FORGING PRESS SETTER UP.ELECTRICAL HARDWARE ENGINEER Work Phone: Endocrinology Comment on above: Poorly controlled ty pe 2 diabetes mellitus (HCC) (Primary Dx) Start: 01-16-2024 Refill Paige Muller FORGING PRESS SETTER UP.ELECTRICAL HARDWARE ENGINEER Work Phone: Endocrinology Comment on above: Refill Request Start: 11-22-2023 Non-patient / Non-visit Dr. Edwin Amos Work Phone: [facility] Start: 11-22-2023 End: 11-22-2023 Admission to same day surgery center Dr. Eliazar Amos Work Phone: [facility] Start: 11-22-2023 End: 11-22-[address] Eliazar Amos Work Phone: [facility] Work Phone: Start: 10-25-2023 End: 10-25-2023 Emergency department patient visit ELIAZAR AMOS MD Facility:[facility] Start: 10-24-2023 End: 10-24-2023 Emergency department patient visit DR MAREN WAN MD [facility] Start: 10-12-2023 End: 10-12-[address] Eliazar Amos Work Phone: [facility] Work Phone: Start: 10-12-2023 End: 10-12-[address] Eliazar Amos Work Phone: [facility] Work Phone: Start: 10-10-2023 End: 10-10-[address] Eliazar Amos Work Phone: [facility] Work Phone: Start: 09-27-2023 Non-patient / Non-visit Dr. Edwin Amos Work Phone: [facility] Start: 09-27-2023 End: 09-27-[address] Eliazar Amos Work Phone: [facility] Work Phone: Start: 09-27-2023 End: 09-27-[address] Eliazar Amos Work Phone: [facility]Pulmonary Services/Neurology Work Phone: Start: 08-21-2023 End: 08-21-[address] Eliazar Amos Work Phone: [facility] Work Phone: Start: 08-09-2023 End: 08-09-2023 Patient encounter procedure Paige Muller FORGING PRESS SETTER UP.ELECTRICAL HARDWARE ENGINEER Work Phone: Endocrinology Comment on above: Poorly controlled ty pe 2 diabetes mellitus (HCC) (Primary Dx) Start: 08-03-2023 End: 08-03-[address] Eliazar Amos Work Phone: [facility] Work Phone: Start: 08-03-2023 End: 08-03-[address] Eliazar Amos Work Phone: [facility] Work Phone: Start: 06-21-2023 End: 06-21-2023 Patient encounter procedure Paige Muller FORGING PRESS SETTER UP.ELECTRICAL HARDWARE ENGINEER Work Phone: Endocrinology Comment on above: Poorly controlled ty pe 2 diabetes mellitus (HCC) (Primary Dx) Start: 05-30-2023 End: 05-30-[address] Eliazar Amos Work Phone: [facility] Work Phone: Start: 05-28-2023 ambulatory Paige Muller FORGING PRESS SETTER UP.ELECTRICAL HARDWARE ENGINEER Work Phone: Endocrinology Comment on above: Thyroid Start: 05-19-2023 End: 05-19-2023 Subsequent hospital visit by physician [facility] Work Phone: Radiology Comment on above: Type II diabetes debbie litus with manifestations (HCC) [E11.8] Start: 05-17-2023 End: 05-17-2023 Patient encounter procedure Paige Muller FORGING PRESS SETTER UP.ELECTRICAL HARDWARE ENGINEER Work Phone: Endocrinology Comment on above: Type II diabetes debbie litus with manifestations (HCC) (Primary Dx) Start: 05-11-[address] Cyn Amos Work Phone: [facility] Start: 05-11-2023 End: 05-11-2023 Emergency department patient visit Dr. Eliazar Amos Work Phone: [facility] Start: 05-11-2023 End: 05-11-[address] Eliazar Amos Work Phone: [facility] Work Phone: Start: 05-09-2023 End: 05-09-[address] Eliazar Amos Work Phone: [facility] Work Phone: Start: 05-03-2023 End: 05-03-[address] Eliazar Amos Work Phone: [facility] Work Phone: Start: 05-03-2023 End: 05-03-[address] Eliazar Amos Work Phone: [facility] Work Phone: Start: 05-02-2023 End: 05-02-[address] Eliazar Amos Work Phone: [facility] Work Phone: Start: 04-09-2023 Telephone encounter Paige Rober Richter ioce FORGING PRESS SETTER UP.ELECTRICAL HARDWARE ENGINEER Work Phone: Endocrinology Comment on above: Results Start: 04-06-2023 Refill Paige C Cioce FORGING PRESS SETTER UP.ELECTRICAL HARDWARE ENGINEER Work Phone: Endocrinology Comment on above: Med Change Request Start: 04-05-2023 End: 04-05-2023 Patient encounter procedure Paige C Cioce FORGING PRESS SETTER UP.ELECTRICAL HARDWARE ENGINEER Work Phone: Endocrinology Comment on above: Type II diabetes debbie litus with manifestations (HCC) (Primary Dx); Goiter Start: 04-05-2023 Telephone encounter Paige C C ioce FORGING PRESS SETTER UP.ELECTRICAL HARDWARE ENGINEER Work Phone: Endocrinology Comment on above: Patient Question Start: 03-17-2023 End: 03-18-2023 ambulatory ELIAZAR AMOS MD Facility:[facility] Start: 03-16-2023 End: 03-16-[address] Eliazar Amos Work Phone: [facility] Work Phone: Start: 03-16-2023 End: 03-16-[address] Eliazar Amos Work Phone: [facility] Work Phone: Start: 03-13-2023 End: 03-18-2023 ambulatory MARINE BACON MD Facility:[facility] Start: 03-13-2023 End: 03-17-2023 Outreach Lab MARINE BACON MD [facility] Start: 12-23-2022 End: 12-23-[address] [facility] Start: 12-20-2022 End: 12-20-[address] Eliazar Amos Work Phone: [facility] Work Phone: Start: 12-19-2022 End: 12-19-[address] Eliazar Amos Work Phone: [facility] Work Phone: Start: 12-09-2022 End: 12-09-2022 Emergency department patient visit [facility] Facility:[facility] Start: 12-09-2022 End: 12-09-2022 Emergency department patient visit [facility] Start: 12-07-2022 End: 12-07-2022 Emergency department patient visit DR NAYELY FISHER MD Facility:[facility] Start: 12-07-2022 End: 12-07-2022 Emergency department patient visit DR NAYELY FISHER MD [facility] Start: 08-12-2022 End: 08-12-2022 Emergency department patient visit Dr. Eliazar Amos Work Phone: [facility]-Emergency Department Start: 07-10-2022 End: 07-10-2022 Emergency department patient visit DEAN LYON MD [facility] Start: 06-25-2022 End: 06-25-2022 Emergency department patient visit Dr. Eliazar Amos Work Phone: [facility]-Emergency Department Start: 06-15-2022 End: 06-15-[address] Eliazar Amos Work Phone: [facility] Work Phone: Start: 06-15-2022 End: 06-15-[address] [facility] Start: 06-07-2022 End: 06-07-[address] Eliazar Amos Work Phone: [facility] Start: 04-04-2022 End: 04-04-2022 Emergency department patient visit DR PATRIA PARRA DO [facility] Start: 02-16-2022 End: 02-16-2022 Emergency department patient visit MARIYA CALI DO [facility] Start: 12-26-2021 End: 12-26-2021 Emergency department patient visit DR PATRIA PARRA DO [facility] Start: 12-08-2021 End: 12-08-2021 Emergency department patient visit Dr. Maren Sultana Work Phone: [facility]-Emergency Department Start: 11-17-2021 End: 11-17-[address] Maren [facility]ultana [facility] Start: 10-28-2021 End: 10-28-[address] Maren Sultana Work Phone: [facility] Start: 09-02-2021 End: 09-02-[address] Maren Sultana Work Phone: [facility] Procedures Date Procedure Procedure Detail Performing Clinician Start: 05-30-2025 Radiologic exam ches t [address] Eliazar Amos MD Work Phone: Start: 05-16-[address] Eliazar Amos MD Work Phone: Start: 05-16-2025 Urnls dip stick/tabl et reagent auto microscopy Dr. Eliazar Amos MD Work Phone: Start: 05-16-[address] Eliazar Amos MD Work Phone: Start: 05-07-2025 Hemoglobin A1c/Hemoglobin.total in Blood Paige C Cioce FORGING PRESS SETTER UP.ELECTRICAL HARDWARE ENGINEER Work Phone: Start: 01-17-2025 X-ray of chest, [...] Hemoglobin A1c/Hemoglobin.total in Blood Paige C Cioce FORGING PRESS SETTER UP.ELECTRICAL HARDWARE ENGINEER Work Phone: Start: 05-19-2023 soft tissue head & neck real time imge maryjanem Paige Muller FORGING PRESS SETTER UP.ELECTRICAL HARDWARE ENGINEER Work Phone: Start: 03-16-2023 MRI of brain [...] Performed By: #### T SCR #### [facility] [place] [id number] [address] [place] [id number] PATRIA PARRA DO Comment on [...] for Adults (1 - 1-dose 75+ series) [facility] Start: 2048 Zoster Vaccines (1 of 2) Zoster Vaccines (1 of 2) [facility] Start: 12-09-2031 Tetanus vaccination [facility] Start: 12-09-2031 Urine microalbumin profile DTaP,Tdap,Td Vaccine (9 - Td or Tdap) [facility] Start: 02-21-2031 DTaP/Tdap/Td Vaccines (8 - Td or Tdap) DTaP/Tdap/Td Vaccines (8 - Td or Tdap) [facility] Start: 02-21-2031 Urine microalbumin profile [facility] Start: 01-01-2026 Hepatitis B screening Urine Albumin:Creatinine Ratio [facility] Start: 01-01-2026 Hepatitis B surface antibody level LDL Cholesterol [facility] Start: 08-06-2025 Hemoglobin A1c measurement HbA1C [facility] Start: 07-03-2025 Hemoglobin A1c measurement HbA1C [facility] Start: 05-30-2025 [facility] Start: 05-16-2025 [facility] Start: 05-07-2025 End: 08-06-2025 Comprehensive metabolic 2000 panel - Serum or Plasma COMPREHENSIVE METABOLIC PANEL Lab Routine Diabetes mellitus treated with injections of non-insulin medication (HCC) Expected: 05/07/2025, Expires: 08/06/2025 [facility] Work Phone: Comment on above: Expected: 05/07/2025, Expires: Start: 05-07-2025 End: 08-06-2025 Hemoglobin A1c in Blood HEMOGLOBIN A1C Lab Routine Diabetes mellitus treated with injections of non-insulin medication (HCC) Expected: 05/07/2025, Expires: 08/06/2025 [facility] Comment on above: Expected: 05/07/2025, Expires: Start: 05-07-2025 End: 08-06-2025 LIPID PANEL, NONFASTING LIPID PANEL, NONFASTING Lab Routine Diabetes mellitus treated with injections of non-insulin medication (HCC) Expected: 05/07/2025, Expires: 08/06/2025 [facility] Comment on above: Expected: 05/07/2025, Expires: Start: 05-07-2025 End: 08-06-2025 Microalbumin/Creatinine [Mass Ratio] in Urine ALBUMIN/CREATININE RATIO, URINE Lab Routine Diabetes mellitus treated with injections of non-insulin medication (HCC) Expected: 05/07/2025, Expires: 08/06/2025 [facility] Comment on above: Expected: 05/07/2025, Expires: Start: 05-05-2025 Influenza vaccination [facility] Start: 04-08-2025 [facility] Start: 04-02-2025 End: 04-02-2025 Patient encounter procedure 04/02/2025 2:45 PM EDT Office Visit Endocrinology [address] [place] [address] Paige Muller APRN.ELECTRICAL HARDWARE ENGINEER [address] [place] [address] 3 month follow up Endocrinology Comment on above: 3 month follow up Start: 03-18-2025 [facility] Start: 02-05-2025 End: 02-05-2025 Patient encounter procedure 02/05/2025 12:15 PM EDT Office Visit Endocrinology [address] [place] [address] Paige Muller, FORGING PRESS SETTER UP.ELECTRICAL HARDWARE ENGINEER [address] [place] [address] diabetes Endocrinology Comment on above: diabetes Start: 02-03-2025 End: 02-03-2025 ambulatory 02/03/2025 11:00 AM EDT Education Endocrinology [address] [place] [address] Cristina Delgado, POL[place] [address] [address] Diabetes mellitus treated with injections of non-insulin medication (HCC) [E11.9, Z79.85] Endocrinology Comment on above: Diabetes mellitus treated with injection s of non-insulin medication (HCC) [E11.9, Z79.85] Start: 02-01-2025 Hepatitis B screening Urine Albumin:Creatinine Ratio [facility] Start: 02-01-2025 Hepatitis B surface antibody level LDL Cholesterol [facility] Start: 01-17-2025 End: 01-17-2025 [facility] Start: 01-01-2025 End: 04-02-2025 25-hydroxyvitamin D3 [Mass/volume] in Serum or Plasma [facility] Comment on above: Expected: 01/01/2025, Expires: Start: 01-01-2025 End: 04-02-2025 Hemoglobin A1c in Blood [facility] Comment on above: Expected: 01/01/2025, Expires: Start: 01-01-2025 End: 04-02-2025 LIPID PANEL, NONFASTING [facility] Work Phone: Comment on above: Expected: 01/01/2025, Expires: Start: 01-01-2025 End: 04-02-2025 Microalbumin/Creatinine [Mass Ratio] in Urine [facility] Comment on above: Expected: 01/01/2025, Expires: Start: 01-01-2025 End: 04-02-2025 Thyrotropin [Units/volume] in Serum or Plasma [facility] Comment on above: Expected: 01/01/2025, Expires: Start: 01-01-2025 End: 04-02-2025 Thyroxine (T4) free [Mass/volume] in Serum or Plasma [facility] Comment on above: Expected: 01/01/2025, Expires: Start: 11-07-2024 End: 11-07-2024 Patient encounter procedure 11/07/2024 1:15 PM EST Office Visit Endocrinology [address] [place] [address] Paige Muller, FORGING PRESS SETTER UP.ELECTRICAL HARDWARE ENGINEER [address] [place] [address] Follow Up Endocrinology Comment on above: Follow Up Start: 10-15-2024 [facility] Start: 10-14-2024 [facility] Start: 08-03-2024 Hemoglobin A1c measurement HbA1C [facility] Start: 05-05-2024 COVID-19 VACCINE () COVID-19 VACCINE () [facility] Start: 05-05-2024 Covid-19 Vaccine ( season) Covid-19 Vaccine () [facility] Start: 05-05-2024 Influenza vaccination [facility] [facility] Start: 04-05-2024 Hepatitis B screening Urine Albumin:Creatinine Ratio [facility] Start: 04-05-2024 Hepatitis B surface antibody level LDL Cholesterol [facility] Start: 12-04-2023 End: 03-04-2024 ALBUMIN/CREAT RATIO RND UR [facility] Work Phone: Comment on above: Expected: 12/04/2023, Expires: Expected: 12/04/2023 , Expires: 03/04/2024 Start: 12-04-2023 End: 03-04-2024 Comprehensive metabolic 2000 panel - Serum or Plasma [facility] Work Phone: Comment on above: Expected: 12/04/2023, Expires: 4 Expected: 12/04/2023 , Expires: 03/04/2024 Start: 12-04-2023 End: 03-04-2024 Hemoglobin A1c in Blood [facility] Work Phone: Comment on above: Expected: 12/04/2023, Expires: 4 Expected: 12/04/2023 , Expires: 03/04/2024 Start: 12-04-2023 End: 03-04-2024 LIPID PANEL, NONFASTING [facility] Work Phone: Comment on above: Expected: 12/04/2023, Expires: 4 Expected: 12/04/2023 , Expires: 03/04/2024 Start: 11-22-2023 Patient discharge [facility] Start: 11-22-2023 Application of ice collar, cap or bag [facility] Start: 11-22-2023 Assessment of risk of venous thromboembolism [facility] Start: 11-22-2023 Catheterization of vein [facility] Start: 11-22-2023 Deep breathing and coughing exercises [facility] Start: 11-22-2023 Following clinical pathway protocol [facility] Start: 11-22-2023 Gait training procedure [facility] Start: 11-22-2023 Incentive spirometry [facility] Start: 11-22-2023 Introduction of urinary catheter [facility] Start: 11-22-2023 Patient education [facility] Start: 11-22-[address] [facility] Start: 11-22-2023 Vital signs measurements [facility] Start: 11-22-2023 [facility] Start: 11-22-2023 Electrocardiographic procedure [facility] Start: 11-22-2023 Medication education [facility] Start: 11-03-2023 End: 01-03-2024 ALBUMIN/CREAT RATIO RND UR ALBUMIN/CREAT RATIO RND UR Lab Routine Type II diabetes mellitus with manifestations (HCC) Expected: 11/03/2023, Expires: 01/03/2024 [facility] Work Phone: Comment on above: Expected: 11/03/2023, Expires: Start: 11-03-2023 End: 01-03-2024 Comprehensive metabolic 2000 panel - Serum or Plasma COMP METABOLIC PANEL Lab Routine Type II diabetes mellitus with manifestations (HCC) Expected: 11/03/2023, Expires: 01/03/2024 [facility] Work Phone: Comment on above: Expected: 11/03/2023, Expires: 4 Start: 11-03-2023 End: 01-03-2024 Hemoglobin A1c in Blood HGB A1C Lab Routine Type II diabetes mellitus with manifestations (HCC) Expected: 11/03/2023, Expires: 01/03/2024 [facility] Work Phone: Comment on above: Expected: 11/03/2023, Expires: 4 Start: 11-03-2023 End: 01-03-2024 LIPID PANEL, NONFASTING LIPID PANEL, NONFASTING Lab Routine Type II diabetes mellitus with manifestations (HCC) Expected: 11/03/2023, Expires: 01/03/2024 [facility] Work Phone: Comment on above: Expected: 11/03/2023, Expires: Start: 09-21-2023 [facility]oglobin A[facility]c [facility] Start: 09-21-2023 Hemoglobin A1c/Hemoglobin.total in Blood HbA1C [facility] Start: 09-04-2023 Behavioral Health Screening Behavioral Health Screening [facility] Start: 07-06-2023 Hemoglobin A1c/Hemoglobin.total in Blood HbA1C [facility] Start: 06-21-2023 End: 09-20-2023 Hemoglobin A1c in Blood HGB A1C Lab Routine Poorly controlled type 2 diabetes mellitus (HCC) Expected: 06/21/2023, Expires: 09/20/2023 [facility] Work Phone: Comment on above: Expected: 06/21/2023, Expires: 4 Start: 05-05-2023 Covid-19 Vaccine (2022- season) Covid-19 Vaccine (2022-) [facility] Start: 05-05-2023 Influenza vaccination [facility] Start: 04-05-2023 End: 06-05-2023 Glutamate decarboxylase 65 Ab [Units/volume] in Serum [facility] Work Phone: Comment on above: Expected: 04/05/2023, Expires: 3 Start: 04-05-2023 End: 06-05-2023 Pancreatic islet cell Ab [Titer] in Serum [facility] Work Phone: Comment on above: Expected: 04/05/2023, Expires: 3 Start: 09-04-2022 DEPRESSION ASSESSMENT DEPRESSION ASSESSMENT [facility] Start: 08-12-2022 [facility] Work Phone: Start: 06-25-2022 [facility] Work Phone: Start: 01-12-2022 COVID-19 VACCINE (2 - Moderna series) COVID-19 VACCINE (2 - Moderna series) [facility] Start: 12-19-2019 PAP TESTING PAP TESTING [facility] Start: 12-19-2019 Screening for malignant neoplasm of cervix [facility] Start: 2017 Pneumococcal vaccination Pneumococcal Vaccine (1 of 2 - PCV) [facility] Start: 2017 Pneumococcal Vaccine: Pediatrics (0 to 5 Years) and At-Risk Patients (6 to 49 Years) (1 of 2 - PCV) Pneumococcal Vaccine: Pediatrics (0 to 5 Years) and At-Risk Patients (6 to 49 Years) (1 of 2 - PCV) [facility] Start: 2016 Annual PCP Team Chronic Disease Visit Annual PCP Team Chronic Disease Visit [facility] Start: 2016 Anxiety Screening Anxiety Screening [facility] Start: 2016 Depression Screening Depression Screening [facility] Start: 2016 HEPATITIS C SCREENING HEPATITIS C SCREENING [facility] Start: 2016 Hepatitis C screening Hepatitis C Screening [facility] Start: 2016 HIV SCREENING HIV SCREENING [facility] Start: 2016 HIV screening HIV Screening [facility] Start: 2014 Meningococcal B Vaccine: Consider Based On Risk (1 of 2 - Patient Seeks Protection) Meningococcal B Vaccine: Consider Based On Risk (1 of 2 - Patient Seeks Protection) [facility] Start: 2014 MENINGOCOCCAL B: Consider based on risk (1 of 2 - Patient Seeks Protection) MENINGOCOCCAL B: Consider based on risk (1 of 2 - Patient Seeks Protection) [facility] Start: 2014 Screening for Chlamydia trachomatis CHLAMYDIA SCREEN [facility] Start: 2013 HIV screening HIV SCREENING DISCUSSION [facility] Start: 2012 PEDS TO ADULT TRANSITION ANNUAL ASSESSMENT PEDS TO ADULT TRANSITION ANNUAL ASSESSMENT [facility] Start: 12-19-2011 Varicella vaccination Varicella Vaccines (1 of 2 - 13+ 2-dose series) [facility] Start: 11-17-2011 HPV VACCINE (2 - 2-dose series) HPV VACCINE (2 - 2-dose series) [facility] Start: 11-17-2011 HPV Vaccines (2 - 2-dose series) HPV Vaccines (2 - 2-dose series) [facility] Start: 11-17-2011 Vaccination for human papillomavirus HPV VACCINE ADOL (2 - 2-dose series) [facility] Start: 05-24-2011 Glaucoma screening Dilated Retinal Exam [facility] Start: 05-24-2011 Hepatitis C antibody, confirmatory test Dilated Retinal Exam [facility] Start: 2010 Depression Monitoring Depression Monitoring [facility] Start: 2010 PEDS TO ADULT TRANSITION INITIAL DISCUSSION PEDS TO ADULT TRANSITION INITIAL DISCUSSION [facility] Start: 2008 3 comp foot exam completed Diabetic Foot Exam [facility] Start: 2008 Diabetic foot examination Diabetic Foot [facility] Start: 2004 Pneumococcal vaccination [facility] Start: 1998 Hepatitis C screening HEPATITIS C VIRUS SCREENING [facility] Start: 1998 HIV screening HIV Screening [facility] Start: 1998 Screening for Chlamydia trachomatis GONORRHEA SCREEN [facility] Basic metabolic 2008 panel with ionized calcium - Serum or Plasma [facility] Electrocardiographic procedure [facility] Hemoglobin A1c/Hemoglobin.total in Blood HEMOGLOBIN A1C (POC) Lab Routine Poorly controlled type 2 diabetes mellitus (HCC) Ordered: 08/08/2023 [facility] Work Phone: Comment on above: Ordered: 08/08/2023 MRA Head vessels [facility] Patient Education [facility] Work Phone: Patient referral [facility] Work Phone: Polysomnography [facility] Work Phone: Polysomnography [facility] Polysomnography [facility] Urine microalbumin/creatinine ratio measurement [facility] Work Phone: End: 05-04-2024 Us soft tissue head & neck real time imge docm US THYROID/PARATHYROID Radiology Routine Type II diabetes mellitus with manifestations (HCC) 1 Occurrences starting 04/05/2023 until 05/04/2024 [facility] Work Phone: Comment on above: 1 Occurrences starting 04/05/2023 until 05/04/2024 XR Chest PA and Lateral [facility] Immunizations Immunization Date Immunization Notes Care Provider Robbie salter 12-08-2021 tetanus toxoid, redu brannon diphtheria toxoid, and acellular pertussis vaccine, adsorbed Dr. Maren Sultana Work Phone: [facility] 02-21-2021 tetanus toxoid, redu brannon diphtheria toxoid, and acellular pertussis vaccine, adsorbed Paige Muller APRN.CNP Work Phone: [facility] 08-17-[address] PATRIA PARRA DO [facility] 08-17-2016 meningococcal polysaccharide (groups A, C, Y and W-135) diphtheria toxoid conjugate vaccine (MCV4P) DR PATRIA PARRA DO [facility] 05-19-2011 human papilloma viru s vaccine, quadrivalent Paige Cioce FORGING PRESS SETTER UP.ELECTRICAL HARDWARE ENGINEER Work Phone: [facility] Work Phone: 05-19-[address] PATRIA PARRA DO [facility] 05-19-2011 meningococcal polysaccharide (groups A, C, Y and W-135) diphtheria toxoid conjugate vaccine (MCV4P) DR PATRIA PARRA DO [facility] 05-19-2011 Meningococcal, MCV4, unspecified conjugate formulation(groups A, C, Y and W-135) Paige Cioce FORGING PRESS SETTER UP.ELECTRICAL HARDWARE ENGINEER Work Phone: [facility] 05-19-2011 tetanus toxoid, redu brannon diphtheria toxoid, and acellular pertussis vaccine, adsorbed DR PATRIA PARRA DO [facility] 05-19-2011 HPV, unspecified formulation Mona Collazo DO Work Phone: [facility] 04-25-2003 diphtheria, tetanus toxoids and acellular pertussis vaccine DR PATRIA PARRA DO [facility] 04-25-2003 measles, mumps and rubella virus vaccine Paige Cioce FORGING PRESS SETTER UP.ELECTRICAL HARDWARE ENGINEER Work Phone: [facility] Work Phone: 04-25-2003 measles/mumps/rubell a virus vaccine DR PATRIA PARRA DO [facility] 04-25-[address], inactivated [address] PATRIA PARRA DO [facility] 03-25-2002 diphtheria, tetanus toxoids and acellular pertussis vaccine DR PATRIA PARRA DO [facility] 03-25-2002 haemophilus influenz ae type b vaccine, HbOC conjugate Paige Cioce FORGING PRESS SETTER UP.ELECTRICAL HARDWARE ENGINEER Work Phone: [facility] Work Phone: 03-25-2002 haemophilus influenz ae type b vaccine, PRP-T conjugate DR PATRIA PARRA DO [facility] 03-25-[address], inactivated [address] PATRIA PARRA DO [facility] 02-11-2000 diphtheria, tetanus toxoids and acellular pertussis vaccine DR PATRIA PARRA DO [facility] 02-11-2000 haemophilus influenz ae type b vaccine, HbOC conjugate Paige Cioce FORGING PRESS SETTER UP.ELECTRICAL HARDWARE ENGINEER Work Phone: [facility] Work Phone: 02-11-2000 haemophilus influenz ae type b vaccine, PRP-T conjugate DR PTARIA PARRA DO [facility] 02-11-2000 hepatitis B pediatri c vaccine DR PATRIA PARRA DO [facility] 02-11-2000 hepatitis B vaccine, pediatric or pediatric/adolescent dosage Paige Cioce FORGING PRESS SETTER UP.ELECTRICAL HARDWARE ENGINEER Work Phone: [facility] Work Phone: 02-11-2000 measles, mumps and rubella virus vaccine Paige Cioce FORGING PRESS SETTER UP.ELECTRICAL HARDWARE ENGINEER Work Phone: [facility] Work Phone: 02-11-2000 measles/mumps/rubell a virus vaccine DR PATRIA PARRA DO [facility] 10-30-1999 diphtheria, tetanus toxoids and acellular pertussis vaccine DR PATRIA PARRA DO [facility] 10-30-1999 haemophilus influenz ae type b vaccine, HbOC conjugate Paige Cioce FORGING PRESS SETTER UP.ELECTRICAL HARDWARE ENGINEER Work Phone: [facility] Work Phone: 10-30-1999 haemophilus influenz ae type b vaccine, PRP-T conjugate DR PATRIA PARRA DO [facility] 10-30-1999 hepatitis B pediatri c vaccine DR PATRIA PARRA DO [facility] 10-30-1999 hepatitis B vaccine, pediatric or pediatric/adolescent dosage Paige Cioce FORGING PRESS SETTER UP.ELECTRICAL HARDWARE ENGINEER Work Phone: [facility] Work Phone: 10-30-[address], inactivated [address] PATRIA PARRA DO [facility] 02-22-1999 diphtheria, tetanus toxoids and acellular pertussis vaccine DR PATRIA PARRA DO [facility] 02-22-1999 haemophilus influenz ae type b vaccine, HbOC conjugate Paige Cioce FORGING PRESS SETTER UP.ELECTRICAL HARDWARE ENGINEER Work Phone: [facility] Work Phone: 02-22-1999 haemophilus influenz ae type b vaccine, PRP-T conjugate DR PATRIA PARRA DO [facility] 02-22-1999 hepatitis B pediatri c vaccine DR PATRIA PARRA DO [facility] 02-22-1999 hepatitis B vaccine, pediatric or pediatric/adolescent dosage Paige Cioce FORGING PRESS SETTER UP.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 2024 Unknown EVANS SCHAEFER [id number] 2024-Present [address] [place] [address] [id number] 2024 Self-pay [id number] 2022 Medicaid [id number] 2022 Unknown [id number] 1998 Unknown [id number] 1998 Unknown [id number] 1998 Unknown [id number] .[id number] 1998 Unknown [id number] 1998 Unknown [id number] .[id number] 1998 Unknown [id number] Unknown [id number] Unknown [id number] Unknown [id number] Unknown [id number] Unknown [id number] Unknown [id number] Unknown [id number] Unknown [id number] [id number] Unknown [id number] Unknown [id number] Unknown [id number] Unknown [id number] Unknown [id number] Unknown [id number] Unknown [id number] Social History Date Type Detail Facility Start: 11-17-2021 End: 11-08-2023 Tobacco smoking status ORIS Unknown if ever smoked [facility] Start: 2000 Sex Assigned At Female W [facility] Start: 12-21-2020 End: 03-13-2023 Tobacco smoking status Light tobacco smoker (finding) [facility] Sex Assigned At Sex [facility] Tobacco Nicotine Use: Va ping Product in Last 90 Days. Type: Electronic Cigarettes (Vaping). [facility] Start: 11-06-2024 End: 05-30-2025 Tobacco smoking status Smokes tobacco daily (finding) [facility] Start: 04-05-2023 Tobacco smoking status NHIS Never smoked tobacco [facility] History of tobacco use Passive smoker [facility] Start: 04-05-2023 Tobacco use and exposure Smokeless tobacco non-user [facility] Start: 04-05-2023 End: 05-07-2025 Alcohol intake Current non-drinker of alcohol (finding) [facility] Start: 04-05-2023 End: 05-07-2025 History of Social function [facility] Start: 04-05-2023 End: 05-07-2025 Tobacco use panel [facility] Start: 08-05-2012 National Score (1-100), lower number is lower risk 63 [facility] Start: 04-05-2023 Tobacco Comment 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 Never [facility] Start: 09-07-2024 End: 11-24-2024 Sex Female (finding) [facility] NEGATED: Highlighted row [facility] Medical Equipment Procedure Code Equipment Code Equipment Origin al Text Equipment Identifier Dates Arthroscopy, knee, with meniscectomy SUT TAPE,T-LOOP [id number] FDA Start: 11-22-2023 Arthroscopy, knee, with meniscectomy Tendon/ligament bone anchor, non-bioabsorbable ()[id number] FDA Start: 11-22-2023 Arthroscopy, knee, with meniscectomy Soft-tissue/mesh anchor, non-bioabsorbable ()[id number] FDA Start: 11-22-2023 Arthroscopy, knee, with meniscectomy Soft-tissue/mesh anchor, non-bioabsorbable ()[id number] FDA Start: 11-22-2023 Arthroscopy, knee, with meniscectomy Soft-tissue/mesh anchor, non-bioabsorbable ()[id number] FDA Start: 03-20-2024 Arthroscopy, knee, with meniscectomy Soft-tissue/mesh anchor, non-bioabsorbable [id number] FDA Start: 11-22-2023 Arthroscopy, knee, with meniscectomy Soft-tissue/mesh anchor, non-bioabsorbable [id number] FDA Start: 11-22-2023 Arthroscopy, knee, with meniscectomy Soft-tissue/mesh anchor, non-bioabsorbable ()[id number] FDA Start: 11-22-2023 Arthroscopy, knee, with [...] # 1 EA, 3 Refill(s), [facility]acy: [facility] Diabetes, 175.5, cm, 02/08/21 [...] # 1 EA, 3 Refill(s), Pharmacy: [facility] Diabetes, 175.5, cm, 02/08/21 [...] 06-07-2022 Lancets (Freesty le Lancets) 28 gauge [facility] Start: 06-07-2022 Blood Sugar Diagnostic (Freestyle Test) strip Start: 06-07-2022 Lancets (Freesty le Lancets) 28 gauge [facility] [place] Start: 06-07-2022 See Instructions , Tests twice [...] 06-07-2022 Lancets (Freesty le Lancets) 28 gauge [facility] [place] Start: 06-07-2022 See Instructions , Tests twice [...] 09-23-2022 Lancets (Freesty le Lancets) 28 gauge [facility] [place] Start: 06-07-2022 Blood Sugar Diagnostic (Freestyle Test) strip Start: 06-07-2022 End: 09-22-2022 Blood Sugar Diagnostic (Freestyle Test) strip Start: 09-22-2022 End: 09-23-2022 [id number], [id number], [id number], [id number], [id number], [id number] Start: 03-09-2023 End: 05-07-2025 Comment on above: Use up to 3 daily to calibrate CGM or check blood sugar as needed. INSULIN USE, multiple injections. E11.9 Uses 4 per day with insulin injection E11.9 once daily. Blood Sugar Diagnostic (Freestyle Test) strip Start: 09-23-2022 Lancets (Freesty le Lancets) 28 gauge misc Start: 06-07-2022 Pen Needle, Diabetic (Droplet Pen Needle) 31 gauge x 3/16" needle Start: 05-03-2023 Blood Sugar Diagnostic (Freestyle Test) strip Start: 06-07-2022 End: 09-22-2022 Blood Sugar Diagnostic (Freestyle Test) strip Start: 09-22-2022 End: 09-23-2022 Blood Sugar Diagnostic (Freestyle Test) strip Start: 09-23-2022 Lancets (Freesty le Lancets) 28 gauge misc Start: 06-07-2022 Pen Needle, Diabetic (Droplet Pen Needle) 31 gauge x 3/16" needle Start: 05-03-2023 Blood Sugar Diagnostic (Freestyle Test) strip Start: 06-07-2022 End: 09-22-2022 Blood Sugar Diagnostic (Freestyle Test) strip Start: 09-22-2022 End: 09-23-2022 Blood Sugar Diagnostic (Freestyle Test) strip Start: 09-23-2022 Lancets (Freesty le Lancets) 28 gauge misc Start: 06-07-2022 Pen Needle, Diabetic (Droplet Pen Needle) 31 gauge x 3/16" needle Start: 05-03-2023 Blood Sugar Diagnostic (Freestyle Test) strip Start: 06-07-2022 End: 09-22-2022 Blood Sugar Diagnostic (Freestyle Test) strip Start: 09-22-2022 End: 09-23-2022 See Instructions , Tests twice daily. Please dispense enough for 3 months with 3 refills, # 1 EA, 3 Refill(s), Pharmacy: [facility] Diabetes, 175.5, cm, 02/08/21 14:56:00 EDT, Height, 136.8, kg, 02/08/21 14:56:00 EDT, Dosing Weight Start: 02-08-2021 See Instructions , qs 1 month supply. check daily. Dx: uncontrolled DM. Adjust to formulary requirements/brand, # 1 EA, 11 Refill(s), [facility]acy: [facility] 180, cm, 02/24/20 14:27:00 EDT, Height, 126.2, kg, 03/18/20 14:08:00 EDT, Dosing Weight Start: 03-26-2020 Blood Sugar Diagnostic (Freestyle Test) strip Start: 06-07-2022 End: 09-22-2022 Blood Sugar Diagnostic (Freestyle Test) strip Start: 09-22-2022 End: 09-23-2022 See Instructions , Tests twice daily. Please dispense enough for 3 months with 3 refills, # 1 EA, 3 Refill(s), Pharmacy: [facility] Diabetes, 175.5, cm, 02/08/21 14:56:00 EDT, Height, 136.8, kg, 02/08/21 14:56:00 EDT, Dosing Weight Start: 02-08-2021 See Instructions , qs 1 month supply. check daily. Dx: uncontrolled DM. Adjust to formulary requirements/brand, # 1 EA, 11 Refill(s), Pharmacy: [facility] 180, cm, 02/24/20 14:27:00 [...] Assessment Result Facility 05-02-2024 Functional Status Independent [facility] 05-02-2024 Functional Status Standard Safet y ID band on, Allergy Band on, Call device within reach, Bed in low position, Wheels locked, personal items within reach, Bedside Cart Locked, Visitor at bedside [facility] 10-24-2023 Functional Status Independent [facility] 12-09-2022 Functional Status Independent [facility] 12-09-2022 Functional Status Standard Safet y ID band on, Allergy Band on, Call device within reach, Bed in low position, Wheels locked, Visitor at bedside [facility] 12-07-2022 Functional Status ID band on, Call device within reach, Bed in low position, Wheels locked, Bedside Cart Locked, Safety level maintained [facility] 07-10-2022 Functional Status Independent [facility] 07-10-2022 Functional Status Standard Safet y ID band on, Allergy Band on, Call device within reach, Bed in low position, Wheels locked, Upper/Half-Length side-rails up, Phone within reach, personal items within reach, Assistive devices within reach, Toileting device within reach, Bedside Cart Locked, Visitor at bedside, Safety level maintained [facility] 04-04-2022 Functional Status Ambulating in huerta, Ambulating in room, Awake [facility] 02-16-2022 Functional Status Standard Safet y ID band on, Allergy Band on, Call device within reach, Bed in low position, Wheels locked [facility] 12-26-2021 Functional Status [facility] 02-21-2021 Are you deaf, or do you have serious difficulty hearing No 02/21/2021 5:37 PM EDT Bernadette Stanford RN No [facility] 02-21-2021 Are you blind, or do you have serious difficulty seeing, even when wearing glasses No 02/21/2021 5:37 PM EDT Bernadette Stanford RN No [facility] 02-21-2021 Do you have serious difficulty walking or climbing stairs No 02/21/2021 5:37 PM EDT Bernadette Stanford RN No [facility] 02-21-2021 Do you have difficul ty dressing or bathing No 02/21/2021 5:37 PM EDT Bernadette Stanford RN No [facility] 02-21-2021 Because of a physica l, mental, or emotional condition, do you have difficulty doing errands alone such as visiting a physician's office or shopping No 02/21/2021 5:37 PM EDT Bernadette Stanford RN No [facility] Mental Status Date Assessment Result Facility 05-30-2025 Cognitive function Level Of Cons ciousness Awake [facility] Work Phone: 05-16-2025 Cognitive function Level Of Cons ciousness Awake;Alert;Appropriate;Fol lows Commands [facility] Work Phone: 01-17-2025 Cognitive function Voice/Name [facility] Work Phone: 10-14-2024 Cognitive function Level Of Cons ciousness Awake;Alert;Appropriate;Fol lows Commands [facility] Work Phone: 05-02-2024 Mental Status Orientation Oriented x 4 [facility] 05-02-2024 Mental Status [facility] 11-22-2023 Cognitive function Voice/Name [facility] Work Phone: 10-24-2023 Mental Status Orientation Oriented x 4 [facility] 10-24-2023 Mental Status [facility] 12-09-2022 Mental Status Orientation Oriented x 4 [facility] 12-09-2022 Mental Status [facility] 12-07-2022 Mental Status Oriented x 4 [facility] 12-07-2022 Mental Status [facility] 07-10-2022 Mental Status Orientation Oriented x 4 [facility] 07-10-2022 Mental Status [facility] 04-04-2022 Mental Status Oriented x 4 [facility] 02-16-2022 Mental Status Orientation Oriented x 4 [facility] 12-26-2021 Mental Status [facility] 02-21-2021 Because of a physica l, mental, or emotional condition, do you have serious difficulty concentrating, remembering, or making decisions No 02/21/2021 5:37 PM EDT Bernadette Stanford RN No [facility] Clinical Notes 02-10-2021 to 05-30-2025 Note Date & Type Note Facility 05-30-2025 Radiology Diagnostic study note [facility] Imaging Services [address] [place] [address] [id number] Chest PA and Lateral MR#: [id number] Acct: [id number] Name: SUGEY WEST Rep #: [id number] : 2000 F 24 From: Jeff Benton MD PCP: Dr. Eliazar Amos MD Status: D EP ER Study:Chest PA and Lateral Date of Exam: 05/30/25 Exam# [id number] Ordering Dr: Lynne Jain DO PROCEDURE: CHEST PA AND LATERAL 05/29/2025 REASON FOR EXAM: COUGH TECHNIQUE: Procedure Code: RADCXR Modality: DX Procedure: CHEST PA AND LATERAL COMPARISON: 01/17/2025 FINDINGS: Hardware: None. Heart: The heart size is normal. Mediastinum: The mediastinal contour is unremarkable. Lungs: The lungs are clear. Bones: The bones are unremarkable. RAD/Chest PA and Lateral IMPRESSION: NO ACUTE FINDINGS. Reading Location: [facility] CC: Dr. Eliazar Amos MD; Elroy Jain DO ~ Web Offset Press Feeder: Signed [facility] 05-16-2025 Discharge summary [facility] 05-16-2025 Discharge summary Note Date/Time May 16, 2025 2:43pm [facility] Medical Records Department [address] [place] [address] Emergency Department Summary 05/16/25 MR#: [id number] Acct: [id number] Name: SUGEY WEST Rep #:[id number] : 2000 24 From: Shlomo Santizo DO PCP: Dr. Eliazar Amos MD Status:R EG ER Location: ED ADDENDUM by Dr. Shlomo Santizo DO on 05/16/25 at 1443 Patient is EKG reviewed showed sinus rhythm rate of 73 bpm with DE interval 186 05/16/25 1443<Electronically signed by Shlomo [...] otherwise has no complaints just feels tired. [facility] Medical History Acute back pain Upper respiratory [...] foot commands and that she was at [facility] year [id number] Skin: Warm, dry, intact no rashes lesions [...] % (Auto) 66.8 Lymph % (Auto) 27.3 [place] % (Auto) 4.2 Eos % (Auto) 1.1 [...] Clarity Clear Urine pH 6.5 Ur Specific [place] 1.010 Urine Protein Negative Urine Glucose (UA) [...] here in the emergency department. Print Language: Austrian Disposition Disposition: Home, Self Care What to do if you have Problems For any increased pain, shortness of breath, bleeding, nausea or vomiting, chestpain, or any unexpected problems, contact your Primary Care Provider. Call [facility] ([phone]) or report to the closest Emergency Room. Call 911 if necessary. 05/16/25 1441 <Electronically signed by Shlomo Santizo DO> Cosigner Signature (if applicable): CC: Dr. Eliazar Amos MD ~ Signed [facility] Work Phone: 1(368) 393-123009-03-2025 NoteHNO ID: [id number] Author: DULCE SMITH RN Service: ? Author Type: Registered Nurse Type: Progress Notes Filed: 05/07/2025 15:31 Note Text: DIABETES CARE AND EDUCATION VISIT Location: [place] Type of visit: In person individual PATIENT'S [...] carb counting based on logs Current CGM: [employer] Jazmin 3+ In need of training for [...] [place] DATE: May 07, 2025 TIME: 2:54 [facility]09-03-2025 History of Present illness Narrative* Dulce Smith RN - 05/07/2025 2:53 PM EDT DIABETES CARE AND EDUCATION VISIT Location: [place] Type of visit: In person individual PATIENT'S [...] carb counting based on logs Current CGM: [employer] Jazmin 3+ In need of training for [...] 2025 TIME: 2:54 PM documented in this [facility]09-03-2025 History of Present illness Narrative* Paige Muller, FORGING PRESS SETTER UP.ELECTRICAL HARDWARE ENGINEER - 05/07/2025 2:45 PM EDT Images from the original note were not included. OFFICE VISIT PROGRESS NOTE CC Sugey West is a 23 year old who presents today for blood sugar review, DM med dose review, adjust. HPI Diagnosed with pre diabetes age 16 Dx with DM2 2020 Last endocrine OV 01/01/2025 Some elements copied [...] at hospital) Has not yet seen ENDO MANAGER LOSS PREVENTION - multiple appts scheduled and cancelled by [...] breakfast, 2 tabs with dinner Blood-Glucose Sensor (CamioCamSTYLE JAZMIN 3 PLUS SENSOR) osito CHANGE SENSOR [...] BID, # 30 gram(s), 0 Refill(s), [facility]acy: [id number], 177.5, cm, 03/13/23 10:35:00 EDT, Height, 117.5 SUMAtriptan (IMITREX) 50 mg tablet TAKE 1 TABLET BY MOUTH EVERY 2 HOURS NEEDED FOR HEADACHE. MAXDOSE OF 2 TABLETS A DAY cyclobenzaprine (FLEXERIL) 10 mg tablet Take 10 mg by mouth three times daily. prn Insulin [place], Disposable, (BD ULTRAFINE III MINI PEN) 31 gauge x 3/16" Uses 4 per day with insulin injection [...] (Temporal) Resp 14 Ht 180.3 cm (5' 11") Wt 135.2 kg (298 lb) LMP 12/20/2023 [...] injection site Patient sts has seen ENDO MANAGER LOSS PREVENTION. EPIC chart shows numerous appts cancelled or [...] note were not included. documented in this encounterWilson [facility]09-03-2025 NoteHNO ID: [id number] Author: PAIGE MULLER APRN.EVA Service: ? Author Type: Nurse Practitioner Type: Progress Notes Filed: 05/07/2025 15:13 Note Text: OFFICE VISIT PROGRESS NOTE CC Sugey West is a 23 year old who presents today for blood sugar review, DM med dose review, adjust. HPI Diagnosed with pre diabetes age 16 Dx with DM2 2020 Last endocrine OV 01/01/2025 Some elements copied [...] at hospital) Has not yet seen ENDO MANAGER LOSS PREVENTION - multiple appts scheduled and cancelled by [...] 1 tablet by mouth (more content not included)...[facility]09-03-2025 NoteHNO ID: [id number] Author: MÓNICA CASIANO MA Service: ? Author Type: Medical Hospital Sales Type: Progress Notes Filed: 05/07/2025 15:13 Note Text:[facility]07-17-2025 Evaluation note* Diagnosis Onset Date Resolution Status Admit Date Acute back pain acute March 5:59pm Dermatitis chronic March 20 5:59pm Essential hypertension chronic 2024 5:59pm Migraine chronic March 20 5:59pm Type 2 diabetes mellitus chronic March 20, 2025 5:59pm [facility] Work Phone: 1(708) 624-886207-17-2025 Evaluation note* Diagnosis Onset Date Resolution Status Admit Date Acute back pain acute March 5:59pm Dermatitis chronic March 20 5:59pm Essential hypertension chronic 2024 5:59pm Migraine chronic March 20 5:59pm Type 2 diabetes mellitus chronic March 20, 2025 5:59pm Acute back pain acute May 022024 9:44am Yeast vaginitis acute May 022024 9:44am [facility] Work Phone: 1(815) 309-494907-15-2025 Discharge summary [facility] Medical Records Department [address] [place] [address] Emergency Department Summary 03/18/25 MR#: [id number] Acct: [id number] Name: SUGEY WEST Rep #:[id number] : 2000 24 From: Dedrick calhoun DO [...] intact Psych: Cooperative, appropriate mood and affect [facility] Medical History (Updated 03/18/25 @ 12:28 [...] ?Instructions ?Recorded ?Last Taken ?Type blood-glucose sensor (FreeppieStyle #1 ea 05/03/24 Unknown History Jazmin 3 [...] bs 10/31/24 Unknown Rx blood sugar diagnostic (Nimbus ConceptsTouch #10 ea 11/06/24 Unkno wn History Verio [...] that [facility] States while getting in and out of [...] can increase confusion, fatigue, falls. Print Language: Austrian Disposition Disposition: Home, Self Care What to do if you have Problems For any increased pain, shortness of breath, bleeding, nausea or vomiting, chestpain, or any unexpected problems, contact your Primary Care Provider. Call [facility] ([phone]) or report tothe closest Emergency Room. Call 911 if necessary. 03/18/25 1231 Cosigner Signature (if applicable): CC: Dr. Eliazar Amos MD ~ Signed [facility]05-19-2025 Telephone encounter Note* Telephone Encounter - Kendrick Fong - 01/20/2025 5:14 PM EDT Images from the original note were not included. Kendrick Red Prior [facility]05-19-2025 Miscellaneous Notes* Telephone Encounter - Kendrick Fong - 01/20/2025 5:14 PM EDT Images from the original note were not included. Kendrick Red [facility] [place] * Telephone Encounter - Arlene Carty - 01/16/2025 4:12 PM EDT Patient calling to report that she uploaded her [employer] insurance card through [email or web address] (available for review in 01/16/25 scanned docs). RTE verified plan is active. Patient states that she does not have a separate plan for prescription coverage. She spoke with [employer] and they advised her to provide their prior auth ph. [phone] to the ordering practitioner. documented in this encounterWilson Health05-19-2025 Telephone encounter Note * Telephone Encounter - Kendrick Fong - 01/20/2025 5:13 PM EDT Initiated PA for semaglutide (OZEMPIC) 1 mg/dose (4 mg/3 mL) through Covermymeds Questions Completed/attached notes Waiting for determination Kendrick Red [facility]05-19-2025 Miscellaneous Notes* Telephone Encounter - Kendrick Fong - 01/20/2025 5:13 PM EDT Initiated PA for semaglutide (OZEMPIC) 1 mg/dose (4 mg/3 mL) through Covermymeds Questions Completed/attached notes Waiting for determination Kendrick Red [facility] documented in this encounterWilson Health05-16-2025 Radiology Diagnostic study note [facility] Imaging Services [address] [place] [address] [id number] Chest PA and Lateral MR#: [id number] Acct: [id number] Name: SUGEY WEST Rep #: [id number] : 2000 F 24 From: Yolanda Patel MD PCP: Dr. Eliazar Amos MD Status: R EG ER Study:Chest PA and Lateral Date of Exam: 01/17/25 Exam# [id number] Ordering Dr: Faby Morales EXAM: XR Chest, 2 Views CLINICAL INDICATION: COUGH TECHNIQUE: Frontal and lateral views of the chest. COMPARISON: No relevant prior studies available. FINDINGS: LUNGS AND PLEURAL SPACES: Unremarkable. No consolidation. No pneumothorax. HEART: Unremarkable. No cardiomegaly. MEDIASTINUM: Unremarkable. Normal mediastinal contour. BONES/JOINTS: Unremarkable. No acute fracture. RAD/Chest PA and Lateral IMPRESSION: No acute cardiopulmonary process. Reading Location: [id number] CC: Dr. Eliazar Amos MD; ALEJANDRA Fry ~ Web Offset Press Feeder: Signed [facility]05-16-2025 Hospital Discharge instructions Additional Instructions Thanks for letting us take care of you today. Your chest x-ray showed no signs of pneumonia. I think you have a viral illness causing upper respiratory symptoms. Continue use of your inhaler and I prescribed Tessalon Perles which can help with cough. You can also take qbxx-wtm-rximtlm cough medication. Take Tylenol or ibuprofen as needed for fever or pain. Viral illnesses usually last 7 to 10 days. If you have significantly worsening shortness of breath/asthma symptoms please come back to the ER.[facility] Work Phone: 1(285) 738-237105-15-2025 Telephone encounter Note* Telephone Encounter - Arlene Carty - 01/16/2025 4:12 PM EDT Patient calling to report that she uploaded her [employer] insurance card through [email or web address] (available for review in 01/16/25 scanned docs). RTE verified plan is active. Patient states that she does not have a separate plan for prescription coverage. She spoke with [employer] and they advised her to provide their prior auth ph. [phone] to the ordering practitioner. [facility]05-13-2025 Telephone encounter Note* Telephone Encounter - Paige Muller APRN.CNP - 01/14/2025 8:58 AM EDT Patient's request for medication is as follows Requested Prescriptions Signed Prescriptions Disp Refills semaglutide (OZEMPIC) 1 mg/dose (4 mg/3 mL) pen 9 mL 3 Sig: Inject 1 mg subcutaneously one time a week. Authorizing Provider: PAIGE MULLER Order entered - please phone pharmacy and notify patient. Paige Muller APRN.CNP [facility]05-13-2025 Miscellaneous Notes* Telephone Encounter - Paige Muller APRN.CNP - 01/14/2025 8:58 AM EDT Patient's request for medication is as follows Requested Prescriptions Signed Prescriptions Disp Refills semaglutide (OZEMPIC) 1 mg/dose (4 mg/3 mL) pen 9 mL 3 Sig: Inject 1 mg subcutaneously one time a week. Authorizing Provider: PAIGE MULLER Order entered - please phone pharmacy and notify patient. Paige Muller APRN.EVA * Telephone Encounter - Cynthia Redding LPN - 01/13/2025 3:50 PM EDT Patient called. The MOUNJARO is not covered and would like Ozempic order placed to [facility]. Cynthia Redding LPN * Telephone Encounter - Kendrick Fong - 01/02/2025 10:31 AM EDT Images from the original note were not included. Initiated PA for tirzepatide (MOUNJARO) 5 mg/0.5 mL through Covermymeds Waiting on Questions Questions Completed Waiting for determination Kendrick Red [facility] documented in this encounterWilson Health05-12-2025 Telephone encounter Note * Telephone Encounter - Cynthia Redding LPN - 01/13/2025 3:50 PM EDT Patient called. The MOUNJARO is not covered and would like Ozempic order placed to [facility]. Cynthia Redding LPN [facility]05-01-2025 Telephone encounter Note* Telephone Encounter - Kendrick Fong - 01/02/2025 10:31 AM EDT Images from the original note were not included. Initiated PA for tirzepatide (MOUNJARO) 5 mg/0.5 mL through Covermymeds Waiting on Questions Questions Completed Waiting for determination Kendrick Red [facility]04-30-2025 History of Present illness Narrative* Paige Muller, JELENA.ELECTRICAL HARDWARE ENGINEER - 01/01/2025 8:45 AM EDT Images from [...] glucose test TWO TIMES DAILY Blood-Glucose Sensor ([employer] JAZMIN 3 SENSOR PLUS) osito CHANGE SENSOR [...] BID, # 30 gram(s), 0 Refill(s), Pharmacy: [facility][id number], 177.5, cm, 03/13/23 10:35:00 EDT, Height, 117.5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 you have a Healthcare Power of Rn Womens [facility]? No March 18, 2025 11:42am Do you have a Healthcare Power of Rn Womens [facility]? No May 16, 2025 12:14pm Advance Directive Response Recorded Date/ Time Do you have a Healthcare Power of Rn Womens Health? No April 08, 2025 11:20pm Do you have a Healthcare Power of Rn Wom[facility] Health? No May 30, 2025 12:47am Do you have a Healthcare Power of Rn Womens Health? No March 18, 2025 11:42am Do you have a Healthcare Power of Rn Womens Health? No May 16, 2025 12:14pm Chief Complaint and Reason for Visit Chief Complaint SEAT MENDER-EST CARE-CONSENT ONLY-ENDO PT CONSULT MED REFILL Reason for Visit Right knee pain Chronic back pain Diabetes Essential hypertension Generalized anxiety disorder with panic attacks Former smoker Hemoglobin A1c greater than 9.0% Intertrigo Macromastia Chronic midline thoracic back pain Chronic neck pain Diabetes Shoulder pain Generalized anxiety disorder Left shoulder pain Thyromegaly Chief Complaint SEAT MENDER-EST CARE-CONSENT ONLY-ENDO PT CONSULT MED REFILL LACERATION [...] Yeast vaginitis May 02, 2025 9: 44am Chief Complaint Admit Date BACK March 18, 2025 11:0 1am BACK PAIN March 20, 2025 5:59 pm ear problem April 08, 2025 11: 13pm BACK PAIN FU May 02, 2025 9: 44am hyperglycemia May 16, 2025 12:14pm cold s/s May 30, 2025 12:02am Reason for Referral Specialty Diagnoses / Procedures Referred By Contac t Referred To Contact Diagnoses Diabetes mellitus treated with injections of non-insulin medication (HCC) Procedures ENDOCRINOLOGY DIETITIAN VISIT (MNT) MEDICAL NUTRITION ASSMT&IVNTJ INDIV EACH 15 [place] MEDICAL NUTRITION ASSMT&IVNTJ INDIV EACH 15 [place] MEDICAL NUTRITION ASSMT&IVNTJ INDIV EACH 15 [place] MEDICAL NUTRITION ASSMT&IVNTJ INDIV EACH 15 [place] Paige Muller APRN.ELECTRICAL HARDWARE ENGINEER [id number] [place] [address] Referral ID Status Reason Start Date Expiration Date Visits Requested Visits Authorized [id number] Authorized PCP Requested Referral 05/27/2024 05/27/2025 1 1 Specialty Diagnoses / Procedures Referred By Contac t Referred To Contact Nutrition Diagnoses Type II diabetes mellitus with manifestations (HCC) Procedures CONSULT TO NUTRITION THERAPY MEDICAL NUTRITION ASSMT&IVNTJ INDIV EACH 15 [place] MEDICAL NUTRITION ASSMT&IVNTJ INDIV EACH 15 [place] MEDICAL NUTRITION ASSMT&IVNTJ INDIV EACH 15 [place] MEDICAL [place]UTRITION ASSMT&IVNTJ INDIV EACH 15 [place] Paige Muller APRN.ELECTRICAL HARDWARE ENGINEER [address] [place] [address] Referral ID Status Reason Start Date Expiration Date Visits Requested Visits Authorized [id number] Authorized PCP Requested Referral 05/17/2023 05/16/2024 1 1 Specialty Diagnoses / Procedures Referred By Contac t Referred To Contact Paige Muller APRN.ELECTRICAL HARDWARE ENGINEER [id number] [place] [id number] Referral ID Status Reason Start Date Expiration Date Visits Re quested Visits Authorized [id number] Closed 1 1 Specialty Diagnoses / Procedures Referred By Contac t Referred To Contact US IMAGING Diagnoses Type II diabetes mellitus with manifestations (HCC) Procedures US THYROID/PARATHYROID US SOFT TISSUE HEAD & NECK REAL TIME IMGE Paige Littlejohn APRN.CNP [id number] [place] [id number] [facility] Referral ID Status Reason Start Date Expiration Date Visits Requested Visits Authorized [id number] Authorized Auto-Generat ed Referral 04/05/2023 05/04/2024 1 1 Specialty Diagnoses / Procedures Referred By Contac t Referred To Contact Diagnoses Type II diabetes mellitus with manifestations (HCC) Procedures CONSULT TO DIABETES EDUCATION DSME/MNT MEDICAL NUTRITION ASSMT&IVNTJ INDIV EACH 15 [place] MEDICAL NUTRITION ASSMT&IVNTJ INDIV EACH 15 [place] MEDICAL NUTRITION ASSMT&IVNTJ INDIV EACH 15 [place] MEDICAL NUTRITION ASSMT&IVNTJ INDIV EACH 15 [place] Paige Muller APRN.ELECTRICAL HARDWARE ENGINEER [address] [place] [address] Referral ID Status Reason Start Date Expiration Date Visits Requested Visits Authorized [id number] Authorized PCP Requested Referral 04/05/2023 04/04/2024 1 1 Additional Source Comments INFORMATION SOURCE (unrecogn ized section and content) DATE CREATED AUTHOR 03/18/2021 [facility] DATE CREATED AUTHOR AUTHOR'S ORGANIZ ATION 11/01/2023 [facility] ([place]) DATE CREATED AUTHOR AUTHOR'S ORGANIZ ATION 07/28/2024 [facility] DATE CREATED AUTHOR AUTHOR'S ORGANIZ ATION 08/06/2024 [facility] DATE CREATED AUTHOR AUTHOR'S ORGANIZ ATION 09/15/2024 [facility] DATE CREATED AUTHOR AUTHOR'S ORGANIZ ATION 05/24/2025 [facility] DATE CREATED AUTHOR AUTHOR'S ORGANIZ ATION 06/06/2025 [facility] Goals (unrecognized section and content) Goals [...] Green MD Family Provider Active Dr. Eliazar mAos MD Primary Care Provider Active Team Status: Inactive Member Role Status Dates Dr. Eliazar Amos MD Primary Care Provider, Refer ring Provider Active Dr. aSulo Lacy MD Attending Provider Active Team Status: [...] Lacy MD Attending Provider, Referring Provider Active Manager Production Relationship Specialty Start Date End Date Eliazar Amos MD [address] [place], [place] [address] PCP - General Internal Medicine 04/05/23 Manager Production Relationship Specialty Start Date End Date Eliazar Amos MD [address] [place] [id number] PCP - General Internal Medicine 04/05/23 Manager Production Relationship Specialty Start Date End Date Eliazar Amos MD [address] [place] [address] PCP - General Internal Medicine 04/05/23 Manager Production Relationship Specialty Start Date End Date Eliazar Amos MD [address] [place] [address] PCP - General Internal Medicine 04/05/23 Manager Production Relationship Specialty Start Date End Date Eliazar Amos MD [address] [place] [address] PCP - General Internal Medicine 04/05/23 Manager Production Relationship Specialty Start Date End Date Eliazar Amos MD [address] [place] [address] PCP - General Internal Medicine 04/05/23 Manager Production Relationship Specialty Start Date End Date Eliazar Amos MD [address] [place] [address] PCP - General Internal Medicine 04/05/23 Team [...] Primary Care Provider, Atten ding Provider Active Manager Production Relationship Specialty Start Date End Date Eliazar Amos MD [address] [place] [address] PCP - General Internal Medicine 04/05/23 Team [...] Olivares MD Attending Provider, Other Provider Active Manager Production Relationship Specialty Start Date End Date Eliazar Amos MD [address] [place] [address] PCP - General Internal Medicine 04/05/23 Manager Production Relationship Specialty Start Date End Date Eliazar Amos MD [address] [place] [address] PCP - General Internal Medicine 04/05/23 Manager Production Relationship Specialty Start Date End Date Eliazar Amos MD [address] [place] [address] PCP - General Internal Medicine 04/05/23 Manager Production Relationship Specialty Start Date End Date Eliazar Amos MD [address] [place] [address] PCP - General Internal Medicine 04/05/23 Manager Production Relationship Specialty Start Date End Date Eliazar Amos MD [address] [place] [address] PCP - General Internal Medicine 04/05/23 Manager Production Relationship Specialty Start Date End Date Eliazar Amos MD [address] [place] [address] PCP - General Internal Medicine 04/05/23 Manager Production Relationship Specialty Start Date End Date Eliazar Amos MD [address] [place] [address] (Fax) PCP - General Internal Medicine 04/05/23 [...] November 15, 2024 End: November 15, 2024 Manager Production Relationship Specialty Start Date End Date Eliazar Amos MD [address] [place] [address] PCP - General Internal Medicine 04/05/23 Manager Production Relationship Specialty Start Date End Date Eliazar Amos MD [address] [place] [address] [place] [address] PCP - General Internal Medicine 04/05/23 Team [...] May 02, 2025 End: May 02, 2025 Manager Production Relationship Specialty Start Date End Date Eliazar Amos MD [address] [place] [address] PCP - General Internal Medicine 04/05/23 Team Status: Inactive Member Role/Relationship Status Dates Dr. Eliazar Amos MD Primary Care Provider Active Start: May 16, 2025 End: May 16, 2025 Dr. Shlomo Santizo DO Emergency Provider Active Start: May 16, 2025 End: May 16, 2025 Team Status: Active Member Role/Relationship Status Dates Dr. Eliazar Amos MD Primary care physician Activ e Team Status: Inactive Member Role/Relationship Status Dates Dr. Eliazar Amos MD Primary care physician Activ e Start: March 18, 2025 End: March 18, 2025 Dr. Dedrick Lagos DO Attending physician Active Start: March 18 End: March 18, 2025 Dr. Dedrick Lagos DO Emergency Department Physician Active Start: March 18, 2025 End: March 18, 2025 Team Status: Inactive Member Role/Relationship Status Dates Dr. Eliazar Amos MD Primary care physician Activ e Start: March 20, 2025 End: March 20, 2025 Dr. Eliazar Amos MD Attending physician Active Start: March 20, 2025 End: March 20, 2025 Dr. Eliazar Amos MD Referring Provider Active Start: March 20, 2025 End: March 20, 2025 Team Status: Inactive Member Role/Relationship Status Dates Dr. Eliazar Amos MD Primary care physician Activ e Start: April 08, 2025 End: April 08, 2025 Dr. Timo aHrris DO Attending physician Active Start: April 08, 2025 End: April 08, 2025 Dr. Timo Harris DO Emergency Departm ent Physician Active Start: April 08, 2025 End: April 08, 2025 Team Status: Inactive Member Role/Relationship Status Dates Dr. Eliazar mAos MD Primary care physician Activ e Start: May 02, 2025 End: May 02, 2025 Dr. Eliazar Amos MD Attending physician Active Start: May 02, 2025 End: May 02, 2025 Dr. Eliazar Amos MD Referring Provider Active Start: May 02, 2025 End: May 02, 2025 Team Status: Inactive Member Role/Relationship Status Dates Dr. Eliazar Amos MD Primary care physician Activ e Start: May 16, 2025 End: May 16, 2025 Dr. Shlomo Santizo DO Attending physician Active Start: May 16, 2025 End: May 16, 2025 Dr. Shlomo Santizo DO Emergency Departme nt Physician Active Start: May 16, 2025 End: May 16, 2025 Team Status: Inactive Member Role/Relationship Status Dates Dr. Eliazar Amos MD Primary care physician Activ e Start: May 30, 2025 End: May 30, 2025 Dr. Elroy Jain , DO Emergency Departme nt Physician Active Start: May 30, 2025 End: May 30, 2025 Care Team (unrecognized sect ion and content) Care Team Personnel Name: ELIAZAR AMOS MD Member Role: Primary Care Physician Address: Address: [address] [place] [address] [place] [address]- Care Team Related Persons Name: DELORES WEST Care Team Personnel Name: ELIAZAR AMOS MD Member Role: Primary Care Physician Address: Address: [address] [place] [address] [place], [id number] Name: DEAN LYON MD Position: ED Physician Member Role: ED Physician Address: Address: [address] [place] [address] Care Team Related Persons Name: DELORES WEST Source Comments (unrecognize d section and content) In the event this informatio n is protected by the Federal Confidentiality of Alcohol and Drug Abuse Patient Records regulations: The Federal rules restrict any use of the information to criminally investigate or prosecute any alcohol or drug abuse patient.[facility] HealthIn the event this information is protected by the Federal Confidentiality of Alcohol and Drug Abuse Patient Records regulations: The Federal rules restrict any use of the information to criminally investigate or prosecute any alcohol or drug abuse patient.[facility] HealthIn the event this information is protected by the Federal Confidentiality of Alcohol and Drug Abuse Patient Records regulations: The Federal rules restrict any use of the information to criminally investigate or prosecute any alcohol or drug abuse patient.[facility] HealthIn the event this information is protected by the Federal Confidentiality of Alcohol and Drug Abuse Patient Records regulations: The Federal rules restrict any use of the information to criminally investigate or prosecute any alcohol or drug abuse patient.[facility] HealthIn the event this information is protected by the Federal Confidentiality of Alcohol and Drug Abuse Patient Records regulations: The Federal rules restrict any use of the information to criminally investigate or prosecute any alcohol or drug abuse patient.[facility] HealthIn the event this information is protected by the Federal Confidentiality of Alcohol and Drug Abuse Patient Records regulations: The Federal rules restrict any use of the information to criminally investigate or prosecute any alcohol or drug abuse patient.[facility] HealthIn the event this information is protected by the Federal Confidentiality of Alcohol and Drug Abuse Patient Records regulations: The Federal rules restrict any use of the information to criminally investigate or prosecute any alcohol or drug abuse patient.[facility] the event this information is protected by the Federal Confidentiality of Alcohol and Drug Abuse Patient Records regulations: The Federal rules restrict any use of the information to criminally investigate or prosecute any alcohol or drug abuse patient.[facility] HealthIn the event this information is protected by the Federal Confidentiality of Alcohol and Drug Abuse Patient Records regulations: The Federal rules restrict any use of the information to criminally investigate or prosecute any alcohol or drug abuse patient.[facility] HealthIn the event this information is protected by the Federal Confidentiality of Alcohol and Drug Abuse Patient Records regulations: The Federal rules restrict any use of the information to criminally investigate or prosecute any alcohol or drug abuse patient.[facility] the event this information is protected by the Federal Confidentiality of Alcohol and Drug Abuse Patient Records regulations: The Federal rules restrict any use of the information to criminally investigate or prosecute any alcohol or drug abuse patient.[facility] HealthIn the event this information is protected by the Federal Confidentiality of Alcohol and Drug Abuse Patient Records regulations: The Federal rules restrict any use of the information to criminally investigate or prosecute any alcohol or drug abuse patient.[facility] HealthIn the event this information is protected by the Federal Confidentiality of Alcohol and Drug Abuse Patient Records regulations: The Federal rules restrict any use of the information to criminally investigate or prosecute any alcohol or drug abuse patient.[facility] HealthIn the event this information is protected by the Federal Confidentiality of Alcohol and Drug Abuse Patient Records regulations: The Federal rules restrict any use of the information to criminally investigate or prosecute any alcohol or drug abuse patient.[facility] HealthIn the event this information is protected by the Federal Confidentiality of Alcohol and Drug Abuse Patient Records regulations: The Federal rules restrict any use of the information to criminally investigate or prosecute any alcohol or drug abuse patient.[facility] HealthIn the event this information is protected by the Federal Confidentiality of Alcohol and Drug Abuse Patient Records regulations: The Federal rules restrict any use of the information to criminally investigate or prosecute any alcohol or drug abuse patient.[facility] HealthIn the event this information is protected by the Federal Confidentiality of Alcohol and Drug Abuse Patient Records regulations: The Federal rules restrict any use of the information to criminally investigate or prosecute any alcohol or drug abuse patient.[facility] HealthIn the event this information is protected by the Federal Confidentiality of Alcohol and Drug Abuse Patient Records regulations: The Federal rules restrict any use of the information to criminally investigate or prosecute any alcohol or drug abuse patient.[facility] HealthIn the event this information is protected by the Federal Confidentiality of Alcohol and Drug Abuse Patient Records regulations: The Federal rules restrict any use of the information to criminally investigate or prosecute any alcohol or drug abuse patient.[facility] HealthIn the event this information is protected by the Federal Confidentiality of Alcohol and Drug Abuse Patient Records regulations: The Federal rules restrict any use of the information to criminally investigate or prosecute any alcohol or drug abuse patient.[facility] HealthIn the event this information is protected by the Federal Confidentiality of Alcohol and Drug Abuse Patient Records regulations: The Federal rules restrict any use of the information to criminally investigate or prosecute any alcohol or drug abuse patient.[facility] HealthIn the event this information is protected by the Federal Confidentiality of Alcohol and Drug Abuse Patient Records regulations: The Federal rules restrict any use of the information to criminally investigate or prosecute any alcohol or drug abuse patient.[facility] HealthIn the event this information is protected by the Federal Confidentiality of Alcohol and Drug Abuse Patient Records regulations: The Federal rules restrict any use of the information to criminally investigate or prosecute any alcohol or drug abuse patient.[facility] HealthIn the event this information is protected by the Federal Confidentiality of Alcohol and Drug Abuse Patient Records regulations: The Federal rules restrict any use of the information to criminally investigate or prosecute any alcohol or drug abuse patient.[facility] HealthIn the event this information is protected by the Federal Confidentiality of Alcohol and Drug Abuse Patient Records regulations: The Federal rules restrict any use of the information to criminally investigate or prosecute any alcohol or drug abuse patient.[facility] HealthIn the event this information is protected by the Federal Confidentiality of Alcohol and Drug Abuse Patient Records regulations: The Federal rules restrict any use of the information to criminally investigate or prosecute any alcohol or drug abuse patient.[facility] HealthIn the event this information is protected by the Federal Confidentiality of Alcohol and Drug Abuse Patient Records regulations: The Federal rules restrict any use of the information to criminally investigate or prosecute any alcohol or drug abuse patient.[facility] HealthIn the event this information is protected by the Federal Confidentiality of Alcohol and Drug Abuse Patient Records regulations: The Federal rules restrict any use of the information to criminally investigate or prosecute any alcohol or drug abuse patient.[facility] HealthIn the event this information is protected by the Federal Confidentiality of Alcohol and Drug Abuse Patient Records regulations: The Federal rules restrict any use of the information to criminally investigate or prosecute any alcohol or drug abuse patient.[facility] HealthIn the event this information is protected by the Federal Confidentiality of Alcohol and Drug Abuse Patient Records regulations: The Federal rules restrict any use of the information to criminally investigate or prosecute any alcohol or drug abuse patient.[facility] Reason for Visit (unrecogniz ed section and [...] & NECK REAL TIME IMGE Paige Littlejohn, FORGING PRESS [employer]TER [employer].ELECTRICAL HARDWARE ENGINEER [address] [place] [address] [place] [address] Referral ID Status Reason Start Date Expiration Date V isits Requested Visits Authorized [id number] Closed Auto-Generate d Referral 04/05/2023 05/04/2024 1 1 Reason Comments type 2 diabetes Reporting low sugar events Reason Onset Date Comments Refill Request 01/16/2024 Reason Comments Prior Authorization Unruly Please rese nd PA in 3 days, to [facility] through [employer]. Not available yetDicaddo Reason Comments Medication Problem Results Prior Auth Appeal Unruly Reason Onset Date Comments Refill Request 02/20/2024 [...] BE BASED ON THE PRIMARY CLINICAL RECORDS. [employer] provides no warranty or guarantee of the accuracy or completeness of information in this document.
== END 2025-06-30 01:45 | disposition home or self-care (01) ==
PROVIDERS: Emergency Provider Emergency Medicine; PCP Internal Medicine; Visit Provider Emergency Medicine
DX: S09.90XA Unspecified injury of head, initial encounter (principal); E11.9 Type 2 diabetes mellitus without complications; R51.9 Headache, unspecified; E78.00 Pure hypercholesterolemia, unspecified; I10 Essential (primary) hypertension; J45.909 Unspecified asthma, uncomplicated; F17.290 Nicotine dependence, other tobacco product, uncomplicated; S16.1XXA Strain of muscle, fascia and tendon at neck level, initial encounter; Y04.8XXA Assault by other bodily force, initial encounter
CPT/HCPCS: 70450; 72040; 96372; 99282

== ENCOUNTER 2025-08-03 18:47 | Emergency (ER) | payer MEDICAID, SELFPAY ==
[2025-08-03 18:47] VITALS: BP 161/108; PULSE 79; RESP 18; TEMP 37.2; O2SAT 100; BMI 41.0
--- OUTSIDE RECORDS SUMMARY | 2025-08-03 19:03 | XMS RPT_ITS | CCD ---
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 [address] Basophils/100 WBC (Bld) 0.3 % Normal 0-1 [facility] Comment on above: Performed By: #### L 503.6005, L100.0100, L700.6800, L500.4050, L501.6901, L501.2450 #### [facility] [address] [place], [address] Eosinophils/100 WBC (Bld) 1.1 % Normal 0-5 [facility] Comment on above: Performed By: #### L 503.6005, L100.0100, L700.6800, L500.4050, L501.6901, L501.2450 #### [facility] [address] [place], [address] Erythrocyte distribution width (RBC) [Ratio] 11.7 % Normal 11.6-14.6 [facility] Comment on above: Performed By: #### L 503.6005, L100.0100, L700.6800, L500.4050, L501.6901, L501.2450 #### [facility] [address] [place], [address] Hematocrit (Bld) [Volume fraction] 38.2 % Normal 37-47 [facility] Comment on above: Performed By: #### L 503.6005, L100.0100, L700.6800, L500.4050, L501.6901, L501.2450 #### [facility] [address] [place], [address] Hemoglobin (Bld) [Mass/Vol] 13.4 g/dL Normal 12.0-15.0 [facility] Comment on above: Performed By: #### L 503.6005, L100.0100, L700.6800, L500.4050, L501.6901, L501.2450 #### [facility] [address] [place], [address] IG% 0.300 Normal 0.0-0.9 [facility] Comment on above: Result Comment: IG% - Immature Granulocytes (promyelocytes, myelocytes and metamyelocytes) > 1% indicates that a LEFT SHIFT is Present. Performed By: #### L 503.6005, L100.0100, L700.6800, L500.4050, L501.6901, L501.2450 #### [facility] [address] [place], [address] Lymphocytes/100 WBC (Bld) 27.3 % Normal 19-41 [facility] Comment on above: Performed By: #### L 503.6005, L100.0100, L700.6800, L500.4050, L501.6901, L501.2450 #### [facility] [address] [place], [address] MCH (RBC) [Entitic mass] 33.3 pg High 27.0-32.0 [facility] Comment on above: Performed By: #### L 503.6005, L100.0100, L700.6800, L500.4050, L501.6901, L501.2450 #### [facility] [address] [place], [address] MCHC (RBC) [Mass/Vol] 35.1 g/dL Normal 32-36 [facility] Comment on above: Performed By: #### L 503.6005, L100.0100, L700.6800, L500.4050, L501.6901, L501.2450 #### [facility] [address] [place], [address] MCV (RBC) [Entitic vol] 94.8 fL Normal 81-99 [facility] Comment on above: Performed By: #### L 503.6005, L100.0100, L700.6800, L500.4050, L501.6901, L501.2450 #### [facility] [address] [place], [address] Monocytes/100 WBC (Bld) 4.2 % Normal 0-10 [facility] Comment on above: Performed By: #### L 503.6005, L100.0100, L700.6800, L500.4050, L501.6901, L501.2450 #### [facility] [address] [place], [address] Neutrophils/100 WBC (Bld) 66.8 % Normal 47-70 [facility] Comment on above: Performed By: #### L 503.6005, L100.0100, L700.6800, L500.4050, L501.6901, L501.2450 #### [facility] [address] [place], [address] Nucleated RBC (Bld) [#/Vol] 0 10*3/uL Normal 0-5 [facility] Comment on above: Performed By: #### L 503.6005, L100.0100, L700.6800, L500.4050, L501.6901, L501.2450 #### [facility] [address] [place], [address] Platelet mean volume (Bld) [Entitic vol] 9.2 fL Normal 6.2-12.0 [facility] Comment on above: Performed By: #### L 503.6005, L100.0100, L700.6800, L500.4050, L501.6901, L501.2450 #### [facility] [address] [place], [address] Platelets (Bld) [#/Vol] 268 10*3/uL Normal 150-450 [facility] Comment on above: Performed By: #### L 503.6005, L100.0100, L700.6800, L500.4050, L501.6901, L501.2450 #### [facility] [address] [place], [address] RBC (Bld) [#/Vol] 4.03 10*6/uL Low 4.2-5.4 [facility] Comment on above: Performed By: #### L 503.6005, L100.0100, L700.6800, L500.4050, L501.6901, L501.2450 #### [facility] [address] [place], [address] RDW SD 39.8 fl Normal 35.1-43.9 [facility] Comment on above: Performed By: #### L 503.6005, L100.0100, L700.6800, L500.4050, L501.6901, L501.2450 #### [facility] [address] [place], [address] WBC (Bld) [#/Vol] 7.6 10*3/uL Normal 4.4-11.0 [facility] Comment on above: Performed By: #### L 503.6005, L100.0100, L700.6800, L500.4050, L501.6901, L501.2450 #### [facility] [address] [place], [address] CO2 (BldV) [Moles/Vol]Rick viera By: Shlomo Santizo on 05-16-2025 CO2 [Moles/Vol] 33 mmol/L 23-33 [facility] Carbon dioxide, total [Moles /volume] in Central venous bloodOrdered By: Shlomo Santizo on 05-16-2025 CO2 [Moles/Vol] 25.0 mmol/L 21.0-32.0 [facility] Chloride assayOrdered By: Armando Santizo on 05-16-2025 Chloride [Moles/Vol] 101 mmol/L 98-108 [facility] Comprehensive Metabolic Prof ilon 05-16-2025 Albumin [Mass/Vol] 3.9 g/dL Normal 3.5-5.0 [facility] Comment on above: Performed By: #### L 503.6005, L100.0100, L700.6800, L500.4050, L501.6901, L501.2450 #### [facility] [address] [place], [address] Albumin/Globulin [Mass ratio] 1.5 {ratio} Normal 0.9-2.4 [facility] Comment on above: Performed By: #### L 503.6005, L100.0100, L700.6800, L500.4050, L501.6901, L501.2450 #### [facility] [address] [place], [address] ALK PHOS 65 U/L Normal 35-104 [facility] Comment on above: Performed By: #### L 503.6005, L100.0100, L700.6800, L500.4050, L501.6901, L501.2450 #### [facility] [address] [place], [address] ALT [Catalytic activity/Vol] 47 U/L High <=34 [facility] Comment on above: Performed By: #### L 503.6005, L100.0100, L700.6800, L500.4050, L501.6901, L501.2450 #### [facility] [address] [place], [address] AST [Catalytic activity/Vol] 35 U/L High <=31 [facility] Comment on above: Performed By: #### L 503.6005, L100.0100, L700.6800, L500.4050, L501.6901, L501.2450 #### [facility] [address] [place], [address] Bilirubin [Mass/Vol] 0.24 mg/dL Normal 0.00-1.30 [facility] Comment on above: Performed By: #### L 503.6005, L100.0100, L700.6800, L500.4050, L501.6901, L501.2450 #### [facility] [address] [place], [address] BUN/CRE 10.7 RATIO Normal 10-20 [facility] Comment on above: Performed By: #### L 503.6005, L100.0100, L700.6800, L500.4050, L501.6901, L501.2450 #### [facility] [address] [place], [address] Calcium [Mass/Vol] 9.2 mg/dL Normal 7.6-11.0 [facility] Comment on above: Performed By: #### L 503.6005, L100.0100, L700.6800, L500.4050, L501.6901, L501.2450 #### [facility] [address] [place], [address] Chloride [Moles/Vol] 101 mmol/L Normal 98-108 [facility] Comment on above: Performed By: #### L 503.6005, L100.0100, L700.6800, L500.4050, L501.6901, L501.2450 #### [facility] [address] [place], [address] CO2 [Moles/Vol] 25.0 mmol/L Normal 21.0-32.0 [facility] Comment on above: Performed By: #### L 503.6005, L100.0100, L700.6800, L500.4050, L501.6901, L501.2450 #### [facility] [address] [place], [address] Creatinine [Mass/Vol] 0.77 mg/dL Normal 0.70-1.20 [facility] Comment on above: Performed By: #### L 503.6005, L100.0100, L700.6800, L500.4050, L501.6901, L501.2450 #### [facility] [address] [place], [address] ECRCL 171.57 ml/min Normal 50-250 [facility] Comment on above: Performed By: #### L 503.6005, L100.0100, L700.6800, L500.4050, L501.6901, L501.2450 #### [facility] [address] [place], [address] GAP 11 Normal 5-15 [facility] Comment on above: Performed By: #### L 503.6005, L100.0100, L700.6800, L500.4050, L501.6901, L501.2450 #### [facility] [address] [place], [address] GFR/1.73 sq M.predicted among non-blacks MDRD (S/P/Bld) [Vol rate/Area] 108 mL/min/{1.73_m2} Normal >60 [facility] Comment on above: Result Comment: mL/m in/1.73m2 CKD-EPI Creatinine Equation (2020) Performed By: #### L 503.6005, L100.0100, L700.6800, L500.4050, L501.6901, L501.2450 #### [facility] [address] [place], [address] Globulin (S) [Mass/Vol] 2.7 g/dL Normal 2.2-4.2 [facility] Comment on above: Performed By: #### L 503.6005, L100.0100, L700.6800, L500.4050, L501.6901, L501.2450 #### [facility] [address] [place], [address] Glucose [Mass/Vol] 337 mg/dL High 70-99 [facility] Comment on above: Performed By: #### L 503.6005, L100.0100, L700.6800, L500.4050, L501.6901, L501.2450 #### [facility] [address] [place], [address] Potassium [Moles/Vol] 4.0 mmol/L Normal 3.3-5.1 [facility] Comment on above: Performed By: #### L 503.6005, L100.0100, L700.6800, L500.4050, L501.6901, L501.2450 #### [facility] [address] [place], [address] Sodium [Moles/Vol] 137 mmol/L Normal 133-145 [facility] Comment on above: Performed By: #### L 503.6005, L100.0100, L700.6800, L500.4050, L501.6901, L501.2450 #### [facility] [address] [place], [address] T PROT 6.6 g/dL Normal 5.9-8.4 [facility] Comment on above: Performed By: #### L 503.6005, L100.0100, L700.6800, L500.4050, L501.6901, L501.2450 #### [facility] [address] [place], [address] Urea nitrogen [Mass/Vol] 8 mg/dL Normal 4-19 [facility] Comment on above: Performed By: #### L 503.6005, L100.0100, L700.6800, L500.4050, L501.6901, L501.2450 #### [facility] [address] [place], [address] Emergency Department Summary on 05-16-2025 Emergency Department Summary [facility] Medical Records Department [address] [facility] [place] [address] Emergency Department Summary 05/16/25 MR#: [id number] Acct: [id number] Name: SUGEY WEST Rep #: [id number] : 2000 24 From: Shlomo Santizo DO PCP: Dr. Eliazar Amos MD Status:REG ER Location: ED ADDENDUM by Dr. Shlomo Santizo DO on 05/16/25 at 1443 Patient is EKG reviewed showed sinus rhythm rate of 73 bpm with AR interval 186 05/16/25 1443 Cosigner Signature (if [...] otherwise has no complaints just feels tired. [facility] Medical History Acute back pain Upper respiratory [...] type: e-ciga (more content not included)... Normal [facility] Eosinophil percentageOrdered By: Shlomo Santizo on 05-16-2025 Eosinophils/100 WBC (Bld) 1.1 % 0-5 [facility] Erythrocyte distribution wid th ratioOrdered By: Shlomo Santizo on 05-16-2025 Erythrocyte distribution width (RBC) [Ratio] 11.7 % 11.6-14.6 [facility] Erythrocyte distribution wid th standard deviationOrdered By: Shlomo Santizo on 05-16-2025 Erythrocyte distribution width (RBC) [Ratio] 39.8 fl 35.1-43.9 [facility] Glomerular filtration rate ( GFR) estimation/1.73 sq m using serum, plasma, or whole bOrdered By: Shlomo Santizo on 05-16-2025 GFR/1.73 sq M.predicted among non-blacks MDRD (S/P/Bld) [Vol rate/Area] 108 mL/min/{1.73_m2} >60 [facility] Comment on above: mL/min/1.73m2 CKD-EP I Creatinine Equation (2020) [facility] deOrdered By: Shlomo Santizo on 05-16-2025 Glucose [Mass/Vol] 195 mg/dL High 74-106 [facility] Comment on above: MANAGEMENT OF PATIEN T CARE PER NURSING PROTOCOL Hematocrit Auto (Bld) [Volum e fraction]Ordered By: Shlomo Santizo on 05-16-2025 Hematocrit (Bld) [Volume fraction] 38.2 % 37-47 [facility] Hemoglobin measurementOrdere d By: Shlomo Santizo on 05-16-2025 Hemoglobin (Bld) [Mass/Vol] 13.4 g/dL 12.0-15.0 [facility] Immature granulocytes/100 WB C Auto (Bld)Ordered By: Shlomo Santizo on 05-16-2025 Immature granulocytes/100 WBC (Bld) 0.300 % 0.0-0.9 [facility] Comment on above: IG% - Immature Granu locytes (promyelocytes, myelocytes and metamyelocytes) > 1% indicates that a LEFT SHIFT is Present. Ketones Test strip Ql (U)Ord ered By: Shlomo Santizo on 05-16-2025 Ketones Ql (U) 15 mg/dl High Negative [facility] - Chemistry and C hemistry - challengeOrdered By: Shlomo Santizo on 05-16-2025 AST [Catalytic activity/Vol] 35 U/L High <32 [facility] Lactic Acidon 05-16-2025 Lactate [Moles/Vol] 1.4 mmol/L Normal 0.0-2.0 [facility] Comment on above: Order Comment: Y Performed By: #### L 503.6005, L100.0100, L700.6800, L500.4050, L501.6901, L501.2450 #### [facility] [address] [place], [place], [address] Lactic acid measurementOrder ed By: Shlomo Santizo on 05-16-2025 Lactate [Moles/Vol] 1.4 mmol/L 0.0-2.0 [facility] Lipaseon 05-16-2025 Lipase [Catalytic activity/Vol] 42 U/L Normal 13-75 [facility] Comment on above: Result Comment: Becki de la torre note: LIPASE revised reference range effective 22. New Lipase methodology. Expected to produce lower values than the previous assay method. NEW Reference Range: 13 - 75 U/L Performed By: #### L 503.6005, L100.0100, L700.6800, L500.4050, L501.6901, L501.2450 ####[facility] [address] [place], [address] Lipase measurementOrdered By : Shlomo Santizo on 05-16-2025 Lipase [Catalytic activity/Vol] 42 U/L 13-75 [facility] Comment on above: Please note:LIPASE r evised reference range effective 22. New Lipase methodology. Expected to produce lower values than the previous assay method. NEW Reference Range: 13 - 75 U/L MCV (mean corpuscular volume ) determinationOrdered By: Shlomo Santizo on 05-16-2025 MCV (RBC) [Entitic vol] 94.8 fL 81-99 [facility] Mean corpuscular hemoglobin (MCH) determinationOrdered By: Shlomo Santizo on 05-16-2025 MCH (RBC) [Entitic mass] 33.3 pg High 27.0-32.0 [facility] Mean corpuscular hemoglobin concentration (MCHC) determinationOrdered By: Shlomo Santizo on 05-16-2025 MCHC (RBC) [Mass/Vol] 35.1 g/dL 32-36 [facility] Mean platelet volume determi nationOrdered By: Shlomo Santizo on 05-16-2025 Platelet mean volume (Bld) [Entitic vol] 9.2 fL 6.2-12.0 [facility] Microscopic analysis of urin e for red blood cells (RBC)Ordered By: Shlomo Santizo on 05-16-2025 Microscopic analysis of urine for red blood cells (RBC) 0 SEEN /hpf 0-5 [facility] Monocyte percentageOrdered B y: Shlomo Santizo on 05-16-2025 Monocytes/100 WBC (Bld) 4.2 % 0-10 [facility] Mucus LM Ql (Urine sed)Order ed By: Shlomo Santizo on 05-16-2025 Mucus Ql (Urine sed) 0 SEEN /hpf [facility] Neutrophil percentageOrdered By: Shlomo Santizo on 05-16-2025 Neutrophils/100 WBC (Bld) 66.8 % 47-70 [facility] Nitrite Test strip Ql (U)Ord ered By: Shlomo Santizo on 05-16-2025 Nitrite Ql (U) Negative Negative [facility] No Panel InformationOrdered By: Shlomo Santizo on 05-16-2025 Blood Gas Sample Site Not entered [facility] Blood Gas Specimen Type JULY [facility] Oxygen Delivery Device Not entered [facility] Nucleated red blood cell per centageOrdered By: Shlomo Santizo on 05-16-2025 Nucleated RBC/100 WBC (Bld) [Ratio] 0 % 0-5 [facility] Platelet countOrdered By: Armando Santizo on 05-16-2025 Platelets (Bld) [#/Vol] 268 10*3/uL 150-450 [facility] Potassium measurement (mass/ volume)Ordered By: Shlomo Santizo on 05-16-2025 Potassium (Unsp spec) [Mass/Vol] 4.0 mmol/L 3.3-5.1 [facility] ,Serum,hCG Quali.on 05-16-2025 HCG, SERUM QUAL Negative Normal [facility] Comment on above: Performed By: #### L 503.6005, L100.0100, L700.6800, L500.4050, L501.6901, L501.2450 #### [facility] [address] [place], [place] [address], [address] Protein Test strip Ql (U)Ord ered By: Shlomo Santizo on 05-16-2025 Protein Ql (U) Negative Negative [facility] RBC Auto (Bld) [#/Vol]Ordere d By: Shlomo Santizo on 05-16-2025 RBC (Bld) [#/Vol] 4.03 10*6/uL Low 4.2-5.4 [facility] Serum beta-hCG test, qualita tiveOrdered By: Shlomo Santizo on 05-16-2025 Beta HCG ( test) Ql Negative [facility] Serum creatinine measurement (mass/volume)Ordered By: Shlomo Santizo on 05-16-2025 Creatinine [Mass/Vol] 0.77 mg/dL 0.70-1.20 [facility] Serum globulin measurementOr dered By: Shlomo Santizo on 05-16-2025 Globulin (S) [Mass/Vol] 2.7 g/dL 2.2-4.2 [facility] Serum glucose measurement (m ass/volume)Ordered By: Shlomo Santizo on 05-16-2025 Glucose [Mass/Vol] 337 mg/dL High 70-99 [facility] Serum or plasma alanine shultz otransferase (ALT) measurementOrdered By: Shlomo Santizo on 05-16-2025 ALT [Catalytic activity/Vol] 47 U/L High <35 [facility] Serum or plasma albumin jalyn urement (mass/volume)Ordered By: Shlomo Santizo on 05-16-2025 Albumin [Mass/Vol] 3.9 g/dL 3.5-5.0 [facility] Serum or plasma albumin/glob ulin mass ratioOrdered By: Shlomo Santizo on 05-16-2025 Albumin/Globulin [Mass ratio] 1.5 {ratio} 0.9-2.4 [facility] Serum or plasma alkaline julio sphatase measurementOrdered By: Shlomo Santizo on 05-16-2025 ALP [Catalytic activity/Vol] 65 U/L 35-104 [facility] Serum or plasma calcium jalyn urement (mass/volume)Ordered By: Shlomo Santizo on 05-16-2025 Calcium [Mass/Vol] 9.2 mg/dL 7.6-11.0 [facility] Serum or plasma urea nitroge n measurement (mass/volume)Ordered By: Shlomo Santizo on 05-16-2025 Urea nitrogen [Mass/Vol] 8 mg/dL 4-19 [facility] Sodium levelOrdered By: Josh Santizo on 05-16-2025 Sodium [Moles/Vol] 137 mmol/L 133-145 [facility] Squamous epithelial cells de tection in urine sediment by light microscopyOrdered By: Shlomo Santizo on 05-16-2025 Epithelial cells.squamous LM Ql (Urine sed) 0-5 SEEN /hpf 5-10 [facility] Total proteinOrdered By: Kush Santizo on 05-16-2025 Protein [Mass/Vol] 6.6 g/dL 5.9-8.4 [facility] Urinalysis, Completeon 05-16 EPI,SQUAMOUS 0-5 SEEN Normal 5-10 [facility] Comment on above: Order Comment: CLEAN CATCH Performed By: #### L 400.0001 ####[facility] [address] [place], [address] WBC 0-5 SEEN Normal 0-5 [facility] Comment on above: Order Comment: CLEAN CATCH Performed By: #### L 400.0001 ####[facility] [address] [place], [address] BACTERIA 0 SEEN Normal None Seen [facility] Comment on above: Order Comment: CLEAN CATCH Performed By: #### L 400.0001 ####[facility] [address] [place], [address] Mucus Ql (Urine sed) 0 SEEN Normal [facility] Comment on above: Order Comment: CLEAN CATCH Performed By: #### L 400.0001 ####[facility] [address] [place], [address] RBC 0 SEEN Normal 0-5 [facility] Comment on above: Order Comment: CLEAN CATCH Performed By: #### L 400.0001 ####[facility] [address] [place], [address] Urine clarityOrdered By: Kush Santizo on 05-16-2025 Clarity (U) Clear Clear [facility] Urine color determinationOrd ered By: Shlomo Santizo on 05-16-2025 Color (U) Yellow Yellow [facility] Urine glucose detectionOrder ed By: Shlomo Santizo on 05-16-2025 Glucose Ql (U) 1000 mg/dl High Normal [facility] Urine leukocyte esterase det ection by dipstickOrdered By: Shlomo Santizo on 05-16-2025 Leukocyte esterase Test strip Ql (U) Negative Negative [facility] Urine pHOrdered By: Shlomo walls on 05-16-2025 pH (U) 6.5 [pH] 5.0 - 8.0 [facility] Urine sediment bacteria coun t by microscopy (number/high power field)Ordered By: Shlomo Santizo on 05-16-2025 Bacteria LM.HPF (Urine sed) [#/Area] 0 /[HPF] None Seen [facility] Urine specific gravity measu rementOrdered By: Shlomo Santizo on 05-16-2025 Specific gravity (U) [Rel density] 1.010 1.002-1.030 [facility] Urine urobilinogen measureme ntOrdered By: Shlomo Santizo on 05-16-2025 Urobilinogen Ql (U) Normal mg/dl Normal [facility] Venous Blood Gason Blood Gas Type JULY Normal [facility] Comment on above: Performed By: #### L 9000.0810 #### [facility] [address] [place], [place], [id number] CO2 [Moles/Vol] 33 mmol/L Normal 23-33 [facility] Comment on above: Performed By: #### L 9000.0810 #### [facility] [address] [place], [address] FI02 21.0 Normal [facility] Comment on above: Performed By: #### L 9000.0810 #### [facility] [address] [place], [address] HCO3 (Bld) [Moles/Vol] 32 mmol/L High 22-26 [facility] Comment on above: Performed By: #### L 9000.0810 #### [facility] [address] [place], [address] O2 Delivery Dev Not entered Normal [facility] Comment on above: Performed By: #### L 9000.0810 #### [facility] [address] [place], [address] SITE Not entered Normal [facility] Comment on above: Performed By: #### L 9000.0810 #### [facility] [address] [place], [place], [id number] VBG BE 7 mmol/L High -1.0-3.5 [facility] Comment on above: Performed By: #### L 9000.0810 #### [facility] [address] [place], [address] VBG pCO2 52.7 mmHg High 41-51 [facility] Comment on above: Performed By: #### L 9000.0810 #### [facility] [address] [place], [place], [address] VBG pH 7.38 Normal 7.32-7.42 [facility] Comment on above: Performed By: #### L 9000.0810 #### [facility] [address] [place], [address] VBG PO2 37 mmHg Normal 25-40 [facility] Comment on above: Performed By: #### L 9000.0810 #### [facility] [address] [place], [address] VBG SO2 69 Normal 50-70 [facility] Comment on above: Performed By: #### L 9000.0810 #### [facility] [address] [place], [address] Venous blood base excess silvestre surementOrdered By: Shlomo Santizo on 05-16-2025 Base excess Calc (BldV) [Moles/Vol] 7 mmol/L High -1.0-3.5 [facility] Venous blood bicarbonate silvestre surementOrdered By: Shlomo Santizo on 05-16-2025 HCO3 (Bld) [Moles/Vol] 32 mmol/L High 22-26 [facility] Venous blood oxygen saturati on measurementOrdered By: Shlomo Santizo on 09-12-2025 Oxygen saturation in Blood 69 % 50-70 [facility] Venous blood pH measurementO rdered By: Shlomo Santizo on 05-16-2025 pH (BldV) 7.38 [pH] 7.32-7.42 [facility] Venous blood partial pressur e of carbon dioxide measurementOrdered By: Shlomo Santizo on 05-16-2025 CO2 (BldV) [Partial pressure] 52.7 mm[Hg] High 41-51 [facility] Venous blood partial pressur e of oxygen measurementOrdered By: Shlomo Santizo on 05-16-2025 Oxygen (BldV) [Partial pressure] 37 mm[Hg] 25-40 [facility] White blood cell (WBC) count Ordered By: Shlomo Santizo on 05-16-2025 WBC (Bld) [#/Vol] 7.6 10*3/uL 4.4-11.0 [facility] White blood cell countOrdere d By: Shlomo Santizo on 05-16-2025 White blood cell count 0-5 SEEN /hpf 0-5 [facility] CNNURSEon 05-07-2025 CNNURSE Nurse Visit (ENDIMT) SUGEY WEST ([id number]) 2000 F T Date Time Provider Department 05/07/25 3:00 PM DULCE SMITH During your visit today, we recorded the following information about you: Dulce Smith RN 05/07/2025 3:31 PM Signed DIABETES CARE AND EDUCATION VISIT Location: [place] Type of visit: In person individual PATIENT'S [...] (HCC) [E11.9, Z79.85] Order(s):ENDOCRINOLOGY DIETITIAN VISIT (MNT) [[id number]] Order #: [id number]: 4 Prescriptions as of 05/07/2025 - dulaglutide [...] over 150) ~ 60 units - Insulin Loyalhanna, Disposable, (BD ULTRAFINE III MINI PEN) 31 [...] BID, # 30 gram(s), 0 Refill(s), Pharmacy: [id number], 177.5, cm, 03/13/23 10:35:00 EDT, Height, 117.5 [...] as instruc (more content not included)... Normal [facility] CNOVon 05-07-2025 CNOV Office Visit (ENWSTR ) KATHYSUGEY Rober ([id number]) 2000 F CHT Date Time Provider Department 05/07/25 2:45 PM PAIGE MULLER ENWSTR During your visit today, we recorded the following information about you: Temperature Pulse Respiration Blood pressure 97.4 degrees 74/minute 14/minute 108/86 Weight Height 135.2 kg 1.803 m Mónica Casiano MA 05/07/2025 3:13 PM Signed Paige Muller, JELENA.TIMBER TRIMMER 05/07/2025 3:13 PM Signed OFFICE VISIT PROGRESS NOTE CC Rainerkrystina West is a 23 year old who [...] at hospital) Has not yet seen ENDO [facility] SUPER[facility]OR - multiple appts scheduled and cancelled by [...] Take 2 (more content not included)... Normal [facility] HEMOGLOBIN A1C (POC)on 05-07 HbA1c (Bld) [Mass fraction] 9.7 % Abnormal 4.3 - 5.6 % [facility] Comment on above: Location:[facility], [address], [place], [address] Point of care (POC) Hemoglobin A1c (HGBA1C) [...] specific diabetes management situations: The POC device glass grinder provides a normal range of 4.2% to 6.5% for the HGBA1C POC test. However, the [place] [employer] guidelines indicate that patients with [...] Interpretation and review of laboratory results Abnormal [facility] Internal Medicine Office Vis iton 05-02-2025 Internal Medicine Office Visit [facility] [address] [place] [address] [place] [address] OFFICE VISIT Date of Service: 05/02/25 MR#: [id number] Acct: [id number] Name: SUGEY WEST Rep #: [id number] : 2000 Provider: Dr. Eliazar acosta MD Age/Sex: 24/F Location[facility] Status: Signed Intake Vital Signs 03/20/25 18:09 [...] Chief Complaint: Follow-up back pain. 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 [facility] ([id number]) 2000 F T Date Time Provider Department 04/25/25 ALEX ONTIVEROS ENDWST During your visit today, we recorded the following information about you: Antonia Ramsey MA 04/25/2025 1:09 PM Signed Received a call from patient. She is requesting to speak only with Endocrinology nurse. She will not give any details about why she is calling. States she is having a problem. Attempted to reach Endo nurse. Please call patient back at [phone]. Mónica Casiano MA 04/25/2025 2:39 PM Signed [...] placed on waitlist. NARDA Artis Dianne C, APRN.[facility] 04/27/2025 7:02 PM Signed I have sent this patient to [facility] SUPERVISOR and EDUCATOR. Doesn't appear that she has [...] for Visit: Call patient back [Other] Cmt: Jennifer problems Prescriptions as of 05/23/2025 - dulaglutide [...] over 150) ~ 60 units - Insulin Loyalhanna, Disposable, (BD ULTRAFINE III MINI PEN) 31 [...] BID, # 30 gram(s), 0 Refill(s), Pharmacy: [facility] #[id number], 177.5, cm, 03/13/23 10:35:00 EDT, Height, 117.5 [...] Status:Closed by ANTONIA RAMSEY on 05/23/25 Normal [facility] Emergency Department Summary on 04-08-2025 Emergency Department Summary [facility] Medical Records Department [address] [place] [address] Emergency Department Summary 04/08/25 MR#: [id number] Acct: [id number] Name: SUGEY WEST Rep #: [id number] : 2000 24 From: Timo Harris DO PCP: Dr. Eliazar Amos MD Status:DEP ER Location: ED HPI History of Present Illness Chief Complaint: Ear Problem [facility] Medical History (Updated 04/08/25 @ 23:33 by [...] DOES VALENTINO (more content not included)... Normal [facility] Internal Medicine Office Vis tim 03-20-2025 Internal Medicine Office Visit [facility] [address] [place] [address] [place] [address] OFFICE VISIT Date of Service: 03/20/25 MR#: [id number] Acct: [id number] Name: SUGEY WEST Rep #: [id number] : 2000 Provider: Dr. 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 Normal [facility] Laboratory - Hematology and Cell countsOrdered By: Eliazar Amos on 03-20-2025 HbA1c (Bld) [Mass fraction] 8.8 % High 4.2-6.3 [facility] Emergency Department Summary on 03-18-2025 Emergency Department Summary [facility] Medical Records Department [address] [place] [address] Emergency Department Summary 03/18/25 MR#: [id number] Acct: [id number] Name: SUGEY WEST Rep #: [id number] : 2000 24 From: Dedrick Lagos DO [...] intact Psych: Cooperative, appropriate mood and affect [facility] Medical History (Updated 03/18/25 @ 12:28 by [...] days #9 tabs (more content not included)... [facility] 01-20-2025 [facility] Telephone (EMQ) SUGEY WEST ([id number]) 2000 F CHT Date Time Provider Department 01/20/25 PAIGE MULLER EMQ During your visit today, we recorded the following information about you: Kendrick Fong 01/20/2025 5:14 PM Signed Initiated PA for semaglutide (OZEMPIC) 1 mg/dose (4 mg/3 mL) through Covermymeds Questions Completed/attached notes Waiting for determination Kendrikc Red Prior Production Repairer Endocrinology AND Metabolism [facility] Allergies As of Date: 01/20/2025 Noted Allergy Reaction AMOXICILLIN 04/05/2023 16 - Unknown PENICILLINS 04/05/2023 16 - Unknown SEASONAL ALLERGIES 12/10/2012 14 - Other: See Comments Comments: sneezing, watery eyes, tired ZITHROMAX (AZITHROMYCIN) 05/12/2008 8 - GI Upset Date Reviewed: 01/01/2025 Reviewed by: Violeta Owen MA - Fully Assessed Reason for Visit: Insurance Authorization [[id number]] Cmt: OZEMPIC) 1 mg/dose (4 mg/3 mL) [...] BID, # 30 gram(s), 0 Refill(s), Pharmacy: [facility] #[id number], 177.5, cm, 03/13/23 10:35:00 EDT, Height, 117.5 - SUMAtriptan (IMITREX) 50 mg tablet TAKE 1 TABLET BY MOUTH EVERY 2 HOURS NEEDED FOR HEADACHE. MAX DOSE OF 2 TABLETS A DAY - cyclobenzaprine (FLEXERIL) 10 mg tablet Take 10 mg by mouth three times daily. prn - Insulin Loyalhanna, Disposable, (BD ULTRAFINE III MINI PEN) 31 [...] Status:Closed by KENDRICK FONG on 01/20/25 Normal [facility] Chest PA and Lateralon 01-17 Chest PA and Lateral [facility] Imaging Services [address] [place] [address] Chest PA and Lateral MR#: [id number] Acct: [id number] Name: SUGEY WEST Rep #: [id number] : 2000 F 24 From: Marshall Patel MD PCP: Dr. Eliazar Amos MD Status: REG ER Study: Chest PA and Lateral Date of Exam: 01/17/25 Exam# [id number] Ordering Dr: Faby Niño EXAM: XR Chest, 2 Views CLINICAL INDICATION: COUGH TECHNIQUE: Frontal and lateral views of the chest. COMPARISON: No relevant prior studies available. FINDINGS: LUNGS AND PLEURAL SPACES: Unremarkable. No consolidation. No pneumothorax. HEART: Unremarkable. No cardiomegaly. MEDIASTINUM: Unremarkable. Normal mediastinal contour. BONES/JOINTS: Unremarkable. No acute fracture. RAD/Chest PA and Lateral IMPRESSION: No acute cardiopulmonary process. Reading Location: [facility] CC: Dr. Eliazar Amos MD; ALEJANDRA [place] Landscape Architect: Signed Normal [facility] Emergency Department Summary on 01-17-2025 Emergency Department Summary [facility] Medical Records Department [address] [place] [address] Emergency Department Summary 01/17/25 MR#: [id number] Acct: [id number] Name: SUGEY WEST Rep #: [id number] : 2000 24 From: Faby ROBERTS PCP: [...] yesterday. No urinary symptoms. She vapes nicotine. [facility] Medical History (Updated 01/17/25 @ 21:16 by [...] ???Instructions ???Recorded ???Last Taken ???Type blood-glucose sensor (Prelertyle #1 ea 05/03/24 Unknown History Jazmin 3 [...] subcutaneous pen injector (Trulicity) lancets 30 gauge (KwabenaTouch Delica #100 ea 11/06/24 Unknown History Plus [...] type: does not (more content not included)... [facility] 01-16-2025 [facility] Telephone (EMQ) SUGEY WEST ([id number]) 2000 F CHT Date Time Provider Department 01/16/25 PAIGE MULLER EMQ During your visit today, we recorded the following information about you: Arlene Carty 01/16/2025 4:17 PM Signed Patient calling to report that she uploaded her [employer] insurance card through [employer] (available for review in 01/16/25 scanned docs). RTE verified plan is active. Patient states that she does not have a separate plan for prescription coverage. She spoke with [employer] and they advised her to provide their prior auth ph. [phone] to the ordering practitioner. Kendrick Fong 01/20/2025 5:14 PM Signed Kendrick Red Prior Production Repairer Endocrinology AND Metabolism [facility] Allergies As of Date: 01/16/2025 Noted Allergy [...] BID, # 30 gram(s), 0 Refill(s), Pharmacy: [facility] #[id number], 177.5, cm, 03/13/23 10:35:00 EDT, Height, 117.5 - SUMAtriptan (IMITREX) 50 mg tablet TAKE 1 TABLET BY MOUTH EVERY 2 HOURS NEEDED FOR HEADACHE. MAX DOSE OF 2 TABLETS A DAY - cyclobenzaprine (FLEXERIL) 10 mg tablet Take 10 mg by mouth three times daily. prn - Insulin Loyalhanna, Disposable, (BD ULTRAFINE III MINI PEN) 31 [...] Encounter Status:Closed by KENDRICK FONG on [facility]20[facility]25 [facility] ([id number]) 2000 F T Date Time Provider Department 01/02/25 PAIGE MULLER EMQ During your visit today, we recorded the following information about you: Kendrick Fong 01/02/2025 10:31 AM Signed Initiated PA for tirzepatide (MOUNJARO) 5 mg/0.5 mL through Covermymeds Waiting on Questions Questions Completed Waiting for determination Kendrick Red Prior Production Repairer Endocrinology AND Metabolism [facility] Cynthia Redding LPN 01/13/2025 3:52 PM Signed Patient called. The MOUNJARO is not covered and would like Ozempic order placed to [facility]. AISHA Rodriguez Dianne C, APRN.CNP 01/14/2025 8:58 AM Signed Patient's request for [...] Fully Assessed Reason for Visit: Insurance Authorization [[id number]] Cmt: (MOUNJARO) 5 mg/0.5 mL Medication Problem [...] 2 tabs with dinner - Blood-Glucose Sensor (AVAST SoftwareSTYLE JAZMIN 3 PLUS SENSOR) osito CHANGE SENSOR [...] BID, # 30 gram(s), 0 Refill(s), Pharmacy: [facility] #[id number], 177.5, cm, 03/13/23 10:35:00 EDT, Height, 117.5 - SUMAtriptan (IMITREX) 50 mg tablet TAKE 1 TABLET BY MOUTH EVERY 2 HOURS NEEDED FOR HEADACHE. MAX DOSE OF 2 TABLETS A DAY - cyclobenzaprine (FLEXERIL) 10 mg tablet Take 10 mg by mouth three times daily. prn - Insulin Loyalhanna, Disposable, (BD ULTRAFINE III MINI PEN) 31 [...] Status:Closed by PAIGE MULLER on 01/14/25 Normal [facility] 25(OH)D3 Leticia-beverly 2024 25-hydroxyvitamin D3 [Mass/Vol] 8.7 ng/mL Low 31.0-80.0 [facility] Comment on above: Order Comment: Speci men Type: BLOOD SPECIMENOrdering Facility: [facility] Address: [address] [place] [address] Performed By: #### 1 989-3 ####[facility] LABCLIA [id number] [place] [address] [place] ALBUMIN/CREATININE RATIO, UR INEon 01-01-2025 Albumin DL <= 20 mg/L (U) [Mass/Vol] mg/dL Normal [facility] Comment on above: Order Comment: Speci men Type: URINE SPECIMENOrdering Facility: [facility] Address: [address] [place] [address] Performed By: #### U ACR ####[facility] LABCLIA [id number] [place] [address] [place] Albumin/Creatinine (U) [Mass ratio] <19 Normal <30 [facility] Comment on above: Order Comment: Speci men Type: URINE SPECIMENOrdering Facility: [facility] Address: [address] [place] [address] Result Comment: Adul t Male and Female Nephrotic Criteria: <30 mg/g is considered normal to mildly increased 30-300 mg/g is considered moderately increased >300 mg/g is considered severely increased KDIGO. (2013). KDIGO 2012 Clinical Practice Guideline for the Evaluation and Management of Chronic Kidney Disease. Official Journal of the International Society of Nephrology, 3(1), 1-150. Performed By: #### U ACR ####[facility] LABIA [id number] [address] [place] Creatinine (U) [Mass/Vol] 62.5 mg/dL Normal 20.0-300.0 [facility] Comment on above: Order Comment: Speci men Type: URINE SPECIMENOrdering Facility: [facility] Address: [address] [place] [address] Performed By: #### U ACR ####[facility] LABIA [id number] [place] [address] [place] CBC W Auto Differential pane l (Bld)on 01-01-2025 Basophils (Bld) [#/Vol] 0.03 10*3/uL [facility] Basophils/100 WBC (Bld) 0.3 % C [facility] Differential cell count method Nom (Bld) Auto [facility] Eosinophils (Bld) [#/Vol] 0.1 10*3/uL [facility] Eosinophils/100 WBC (Bld) 1.2 % [facility] Erythrocyte distribution width (RBC) [Ratio] 12.3 % 11.5 - 15.0 % [facility] Hematocrit (Bld) [Volume fraction] 39.8 % 36.0 - 46.0 % [facility] Hemoglobin (Bld) [Mass/Vol] 13.9 g/dL 11.5 - 15.5 g/dL [facility] Immature granulocytes (Bld) [#/Vol] [facility] Immature granulocytes/100 WBC (Bld) 0.2 % [facility] Lymphocytes (Bld) [#/Vol] 2.97 10*3/uL [facility] Lymphocytes/100 WBC (Bld) 34.5 % [facility] MCH (RBC) [Entitic mass] 33.3 pg 26.0 - 34.0 pg [facility] MCHC (RBC) [Mass/Vol] 34.9 g/dL 30.5 - 36.0 g/dL [facility] MCV (RBC) [Entitic vol] 95.2 fL 80.0 - 100.0 fL [facility] Monocytes (Bld) [#/Vol] 0.43 10*3/uL [facility] Monocytes/100 WBC (Bld) 5 % C [facility] Neutrophils (Bld) [#/Vol] 5.07 10*3/uL [facility] Neutrophils/100 WBC (Bld) 58.8 % [facility] Nucleated RBC (Bld) [#/Vol] [facility] Nucleated RBC/100 WBC (Bld) [Ratio] 0 % /100 WBC [facility] Platelet mean volume (Bld) [Entitic vol] 9.2 fL 9.0 - 12.7 fL [facility] Platelets (Bld) [#/Vol] 280 10*3/uL [facility] RBC (Bld) [#/Vol] 4.18 10*6/uL 3.90 - 5.2 0 m/uL [facility] WBC (Bld) [#/Vol] 8.62 10*3/uL [facility] Basophils (Bld) [#/Vol] 0.03 10*3/uL Normal <0.11 [facility] Comment on above: Order Comment: Speci men Type: BLOOD SPECIMENOrdering Facility: [facility] Address: [address] [place] [address] Performed By: #### 5 7021-8 ####[facility] KEELYWNCLIA [id number] [place] [address] [place] Basophils/100 WBC (Bld) 0.3 % Normal [facility] Comment on above: Order Comment: Speci men Type: BLOOD SPECIMENOrdering Facility: [facility] Address: [address] [place] [address] Performed By: #### 5 7021-8 ####[facility]ITAL[facility]CLIA [id number] [place] [address] [place] Differential cell count method Nom (Bld) Auto Normal [facility] Comment on above: Order Comment: Speci men Type: BLOOD SPECIMENOrdering Facility: [facility] Address: [address] [place] [address] Performed By: #### 5 7021-8 ####[facility] MILLWNCLIA [id number] [place] [address] [place] Eosinophils (Bld) [#/Vol] 0.10 10*3/uL Normal <0.46 [facility] Comment on above: Order Comment: Speci men Type: BLOOD SPECIMENOrdering Facility: [facility] Address: [address] [place] [address] Performed By: #### 5 7021-8 ####[facility] MILLWNCLIA [id number] [place] [address] [place] Eosinophils/100 WBC (Bld) 1.2 % Normal [facility] Comment on above: Order Comment: Speci men Type: BLOOD SPECIMENOrdering Facility: [facility] Address: [address] [place] [address] Performed By: #### 5 7021-8 ####[facility] [id number] [place] [address] [place] Erythrocyte distribution width (RBC) [Ratio] 12.3 % Normal 11.5-15.0 [facility] Comment on above: Order Comment: Speci men Type: BLOOD SPECIMENOrdering Facility: [facility] Address: [address] [place] [address] Performed By: #### 5 7021-8 ####[facility] GORDARodri [id number] [place] [address] [place] Hematocrit (Bld) [Volume fraction] 39.8 % Normal 36.0-46.0 [facility] Comment on above: Order Comment: Speci men Type: BLOOD SPECIMENOrdering Facility: [facility] Address: [address] [place] [address] Performed By: #### 5 7021-8 ####[facility] [id number] [place] [address] [place] Hemoglobin (Bld) [Mass/Vol] 13.9 g/dL Normal 11.5-15.5 [facility] Comment on above: Order Comment: Speci men Type: BLOOD SPECIMENOrdering Facility: [facility] Address: [address] [place] [address] Performed By: #### 5 7021-8 ####[facility]OSPITALELÍAS [id number] [place] [address] [place] Immature granulocytes (Bld) [#/Vol] 10*3/uL Normal <0.10 [facility] Comment on above: Order Comment: Speci men Type: BLOOD SPECIMENOrdering Facility: [facility] Address: [address] [place] [address] Performed By: #### 5 7021-8 ####[facility]ITALNCLIA [id number] [place] [address] [place] Immature granulocytes/100 WBC (Bld) 0.2 % Normal [facility] Comment on above: Order Comment: Speci men Type: BLOOD SPECIMENOrdering Facility: [facility] Address: [address] [place] [address] Performed By: #### 5 7021-8 ####[facility] [id number] [place] [address] [place] Lymphocytes (Bld) [#/Vol] 2.97 10*3/uL Normal 1.00-4.00 [facility] Comment on above: Order Comment: Speci men Type: BLOOD SPECIMENOrdering Facility: [facility] Address: [address] [place] [address] Performed By: #### 5 7021-8 ####[facility] [id number] [place] [address] [place] Lymphocytes/100 WBC (Bld) 34.5 % Normal [facility] Comment on above: Order Comment: Speci men Type: BLOOD SPECIMENOrdering Facility: [facility] Address: [address] [place] [address] Performed By: #### 5 7021-8 ####[facility] [id number] [place] [address] [place] MCH (RBC) [Entitic mass] 33.3 pg Normal 26.0-34.0 [facility] Comment on above: Order Comment: Speci men Type: BLOOD SPECIMENOrdering Facility: [facility] Address: [address] [place] [address] Performed By: #### 5 7021-8 ####[facility] [id number] [place] [address] [place] MCHC (RBC) [Mass/Vol] 34.9 g/dL Normal 30.5-36.0 [facility] Comment on above: Order Comment: Speci men Type: BLOOD SPECIMENOrdering Facility: [facility] Address: [address] [place] [address] Performed By: #### 5 7021-8 ####ED [facility] HOSPITALJESSALIA [id number] [place] [address] [place] MCV (RBC) [Entitic vol] 95.2 fL Normal 80.0-100.0 C [facility] Comment on above: Order Comment: Speci men Type: BLOOD SPECIMENOrdering Facility: [facility] Address: [address] [place] [address] Performed By: #### 5 7021-8 ####[facility] HOSPITALJESSAA [id number] [place] [address] [place] Monocytes (Bld) [#/Vol] 0.43 10*3/uL Normal <0.87 [facility] Comment on above: Order Comment: Speci men Type: BLOOD SPECIMENOrdering Facility: [facility] Address: [address] [place] [address] Performed By: #### 5 7021-8 ####[facility] HOSPITALJESSAA [id number] [place] [address] [place] Monocytes/100 WBC (Bld) 5.0 % Normal C [facility] Comment on above: Order Comment: Speci men Type: BLOOD SPECIMENOrdering Facility: [facility] Address: [address] [place] [address] Performed By: #### 5 7021-8 ####[facility]ITALNCLIA [id number] [place] [address] [place] Neutrophils (Bld) [#/Vol] 5.07 10*3/uL Normal 1.45-7.50 [facility] Comment on above: Order Comment: Speci men Type: BLOOD SPECIMENOrdering Facility: [facility] Address: [address] [place] [address] Performed By: #### 5 7021-8 ####[facility] HOSPITALLIA [id number] [place] [address] [place] Neutrophils/100 WBC (Bld) 58.8 % Normal [facility] Comment on above: Order Comment: Speci men Type: BLOOD SPECIMENOrdering Facility: [facility] Address: [address] [place] [address] Performed By: #### 5 7021-8 ####[facility] MILADYSBERKELEYELÍAS [id number] [place] [address] [place] Nucleated RBC (Bld) [#/Vol] 10*3/uL Normal <0.01 [facility] Comment on above: Order Comment: Speci men Type: BLOOD SPECIMENOrdering Facility: [facility] Address: [address] [place] [address] Performed By: #### 5 7021-8 ####[facility] [id number] [place] [address] [place] Nucleated RBC/100 WBC (Bld) [Ratio] 0.0 /100 WBC Normal [facility] Comment on above: Order Comment: Speci men Type: BLOOD SPECIMENOrdering Facility: [facility] Address: [address] [place] [address] Performed By: #### 5 7021-8 ####[facility] HOSPITALFRANCA [id number] [place] [address] [place] Platelet mean volume (Bld) [Entitic vol] 9.2 fL Normal 9.0-12.7 [facility] Comment on above: Order Comment: Speci men Type: BLOOD SPECIMENOrdering Facility: [facility] Address: [address] [place] [address] Performed By: #### 5 7021-8 ####[facility]ITALNCLIA [id number] [place] [address] [place] Platelets (Bld) [#/Vol] 280 10*3/uL Normal 150-400 [facility] Comment on above: Order Comment: Speci men Type: BLOOD SPECIMENOrdering Facility: [facility] Address: [address] [place] [address] Performed By: #### 5 7021-8 ####[facility]ITALNCLIA [id number] [place] [address] [place] RBC (Bld) [#/Vol] 4.18 10*6/uL Normal 3.90-5.20 [facility] Comment on above: Order Comment: Speci men Type: BLOOD SPECIMENOrdering Facility: [facility] Address: [address] [place] [address] Performed By: #### 5 7021-8 ####[facility]ITALNCLIA [id number] [place] [address] [place] WBC (Bld) [#/Vol] 8.62 10*3/uL Normal 3.70-11.00 [facility] Comment on above: Order Comment: Speci men Type: BLOOD SPECIMENOrdering Facility: [facility] Address: [address] [place] [address] Performed By: #### 5 7021-8 ####[facility]ITALNCLIA [id number] [place] [address] [place] CNOVon 01-01-2025 CNOV Office Visit (ENWSTR ) SUGEY WEST ([id number]) 2000 F T Date Time Provider Department 01/01/25 8:45 AM PAIGE MULLER ENWSTR During your visit today, we recorded the following information about you: Pulse Blood pressure Weight 81/minute 123/85 137.4 kg Mónica Casiano MA 01/01/2025 9:01 AM Signed Paige Muller APRN.EVA 01/01/2025 9:01 AM Signed OFFICE VISIT PROGRESS [...] mg. fluticas (more content not included)... Normal [facility] Comprehensive metabolic 2000 panelOrdered By: Jayleen Wilks on 01-01-2025 Albumin [Mass/Vol] 4.3 g/dL 3.9 - 4.9 g/dL [facility] ALP [Catalytic activity/Vol] 67 U/L 34 - 123 U/L [facility] ALT [Catalytic activity/Vol] 59 U/L High 7 - 38 U/L [facility] Anion gap [Moles/Vol] 11 mmol/L 8 - 15 mmol/L [facility] AST [Catalytic activity/Vol] 41 U/L High 13 - 35 U/L [facility] Bilirubin [Mass/Vol] 0.3 mg/dL 0.2 - 1 .3 mg/dL [facility] Calcium [Mass/Vol] 9.6 mg/dL 8.5 - 10. 2 mg/dL [facility] Chloride [Moles/Vol] 103 mmol/L 98 - 10 7 mmol/L [facility] CO2 [Moles/Vol] 27 mmol/L 22 - 30 mmol/L [facility] Creatinine [Mass/Vol] 0.64 mg/dL 0.58 - 0.96 mg/dL [facility] GFR/1.73 sq M.predicted among non-blacks MDRD (S/P/Bld) [Vol rate/Area] 125 mL/min/{1.73_m2} - PINF [facility] Comment on above: Estimated Glomerular Filtration [...] 264 mg/dL High 74 - 99 mg/dL [facility] Comment on above: The [place] Diabete s Association (ADA) provides guidance for [...] Standards of Medical Care in Diabetes 2016, [place] Diabetes Association. Diabetes Care. 2016.39(Suppl 1). Interpretation and review of laboratory results Abnormal [facility] Potassium [Moles/Vol] 4.1 mmol/L 3.7 - 5.1 mmol/L [facility] Protein [Mass/Vol] 7 g/dL 6.3 - 8.0 g/dL [facility] Sodium [Moles/Vol] 141 mmol/L 136 - 144 mmol/L [facility] Urea nitrogen [Mass/Vol] 10 mg/dL 7 - 21 mg/dL [facility] Comprehensive metabolic 2000 panelon 01-01-2025 Albumin [Mass/Vol] 4.3 g/dL Normal 3.9-4.9 [facility] Comment on above: Order Comment: Speci men Type: BLOOD SPECIMENOrdering Facility: [facility] Address: [address] [place] [address] Performed By: #### 2 4323-8 ####[facility] S[facility] MILLTOWNCLIA [id number] [place] [address] [place] ALP [Catalytic activity/Vol] 67 U/L Normal 34-123 [facility] Comment on above: Order Comment: Speci men Type: BLOOD SPECIMENOrdering Facility: [facility] Address: [address] [place] [address] Performed By: #### 2 4323-8 ####[facility] MILLWNCLIA [id number] [place] [address] [place] ALT [Catalytic activity/Vol] 59 U/L High 7-38 [facility] Comment on above: Order Comment: Speci men Type: BLOOD SPECIMENOrdering Facility: [facility] Address: [address] [place] [address] Performed By: #### 2 4323-8 ####[facility]ITALNCLIA [id number] [place] [address] [place] Anion gap [Moles/Vol] 11 mmol/L Normal 8-15 [facility] Comment on above: Order Comment: Speci men Type: BLOOD SPECIMENOrdering Facility: [facility] Address: [address] [place] [address] Performed By: #### 2 4323-8 ####[facility] MILLWNCLIA [id number] [place] [address] [place] AST [Catalytic activity/Vol] 41 U/L High 13-35 [facility] Comment on above: Order Comment: Speci men Type: BLOOD SPECIMENOrdering Facility: [facility] Address: [address] [place] [address] Performed By: #### 2 4323-8 ####[facility] MILLTOWNCLIA [id number] [place] [address] [place] Bilirubin [Mass/Vol] 0.3 mg/dL Normal 0.2-1.3 [facility] Comment on above: Order Comment: Speci men Type: BLOOD SPECIMENOrdering Facility: [facility] Address: [address] [place] [address] Performed By: #### 2 4323-8 ####[facility] SON MILLWNCLIA [id number] [place] [address] [place] Calcium [Mass/Vol] 9.6 mg/dL Normal 8.5-10.2 [facility] Comment on above: Order Comment: Speci men Type: BLOOD SPECIMENOrdering Facility: [facility] Address: [address] [place] [address] Performed By: #### 2 4323-8 ####[facility] CLAY COUNTYWNCLIA [id number] [place] [address] [place] Chloride [Moles/Vol] 103 mmol/L Normal 98-107 [facility] Comment on above: Order Comment: Speci men Type: BLOOD SPECIMENOrdering Facility: [facility] Address: [address] [place] [address] Performed By: #### 2 4323-8 ####[facility]ITALNCLIA [id number] [place] [address] [place] CO2 [Moles/Vol] 27 mmol/L Normal 22-30 [facility] Comment on above: Order Comment: Speci men Type: BLOOD SPECIMENOrdering Facility: [facility] Address: [address] [place] [address] Performed By: #### 2 4323-8 ####[facility] MILLWNCLIA [id number] [place] [address] [place] Creatinine [Mass/Vol] 0.64 mg/dL Normal 0.58-0.96 [facility] Comment on above: Order Comment: Speci men Type: BLOOD SPECIMENOrdering Facility: [facility] Address: [address] [place] [address] Performed By: #### 2 4323-8 ####[facility] [id number] [place] [address] [place] Creatinine and Glomerular filtration rate.predicted panel (S/P/Bld) 125 mL/min/1.73m??? Normal >=60 [facility] Comment on above: Order Comment: Yoanna bereket Type: BLOOD SPECIMENOrdering Facility: [facility] Address: [address] [place] [address] Result Comment: Lizzeth mated Glomerular Filtration Rate [...] actual GFR. Performed By: #### 2 4323-8 ####[facility] HOSPITALLI [id number] [place] [address] [place] Glucose [Mass/Vol] 264 mg/dL High 74-99 [facility] Comment on above: Order Comment: Yoanna cuba Type: BLOOD SPECIMENOrdering Facility: [facility] Address: [address] [place] [address] Result Comment: The [place] Diabetes Association (ADA) provides guidance for cutoff [...] Standards of Medical Care in Diabetes 2016, [place] Diabetes Association. Diabetes Care. 2016.39(Suppl 1). Performed By: #### 2 4323-8 ####[facility] MILLTOWNCLIA [id number] [place] [address] [place] Potassium [Moles/Vol] 4.1 mmol/L Normal 3.7-5.1 [facility] Comment on above: Order Comment: Speci men Type: BLOOD SPECIMENOrdering Facility: [facility] Address: [address] [place] [address] Performed By: #### 2 4323-8 ####[facility] MILLWNCLIA [id number] [place] [address] [place] Protein [Mass/Vol] 7.0 g/dL Normal 6.3-8.0 [facility] Comment on above: Order Comment: Speci men Type: BLOOD SPECIMENOrdering Facility: [facility] Address: [address] [place] [address] Performed By: #### 2 4323-8 ####[facility]ITALNCLIA [id number] [place] [address] [place] Sodium [Moles/Vol] 141 mmol/L Normal 136-144 [facility] Comment on above: Order Comment: Speci men Type: BLOOD SPECIMENOrdering Facility: [facility] Address: [address] [place] [address] Performed By: #### 2 4323-8 ####[facility] MILLTOWNCLIA [id number] [place] [address] [place] Urea nitrogen [Mass/Vol] 10 mg/dL Normal 7-21 [facility] Comment on above: Order Comment: Speci men Type: BLOOD SPECIMENOrdering Facility: [facility] Address: [address] [place] [address] Performed By: #### 2 4323-8 ####[facility] C[facility] COUNTYWNCLIA [id number] [place] [address] [place] HbA1c (Bld)on 01-01-2025 Average glucose Estimated from glycated hemoglobin (Bld) [Mass/Vol] 171 mg/dL Normal [facility] Comment on above: Order Comment: Yoanna cuba Type: BLOOD SPECIMENOrdering Facility: [facility] Address: [address] [place] [address] Result Comment: eAG: (Estimated average glucose) is a calculated value from HgbA1c and is senior customer service representative of the average blood glucose level in the last 2-3 month period. Performed By: #### 5 5454-3 ####[facility] LABCLIA [id number] [address] STATES OF [facility] HbA1c (Bld) [Mass fraction] 7.6 % High 4.3-5.6 [facility] Comment on above: Order Comment: Yoanna cuba Type: BLOOD SPECIMENOrdering Facility: [facility] Address: [address] [place] [address] Result Comment: Amer [place] Diabetes Association guidelines indicate that patients with HgbA1c in the range 5.7-6.4% are at increased risk for development of diabetes, and intervention by lifestyle modification may be beneficial. HgbA1c greater or equal to 6.5% is considered diagnostic of diabetes. Performed By: #### 5 5454-3 ####[facility] LABCLIA [id number] [place] [address] [place] LIPID PANEL, NONFASTINGon Cholesterol [Mass/Vol] 178 mg/dL Normal <200 [facility] Comment on above: Order Comment: Yoanna cuba Type: BLOOD SPECIMENOrdering Facility: [facility] Address: [address] [place] [address] Result Comment: <200 mg/dL, Desirable 200-239 mg/dL, Borderline high >239 mg/dL, High Performed By: #### L IPNF, 3024-7, 3016-3 ####[facility] LABCLIA [id number] [address] [place] HDL CHOLESTEROL, NF 32 mg/dL Low >39 [facility] Comment on above: Order Comment: Yoanna cuba Type: BLOOD SPECIMENOrdering Facility: [facility] Address: [address] [place] [address] Result Comment: 40-5 9 mg/dL, Acceptable >59 mg/dL, High: Negative risk factor for coronary heart disease <40 mg/dL, Low: Positive risk factor for coronary heart disease Performed By: #### L KINSEY, 3023-, 3 ####[facility] LABCLIA [id number] [address] LDL CHOLESTEROL CALCULATED, NF 120 mg/dL High <100 [facility] Comment on above: Order Comment: Emeteriocynthia cuba Type: BLOOD SPECIMENOrdering Facility: [facility] Address: [address] [place] [address] Result Comment: <100 mg/dL, Optimal 100-129 mg/dL, Near optimal/above optimal 130-159 mg/dL, Borderline high 160-189 mg/dL, High >189 mg/dL, Very high Secondary prevention optimal LDL Cholesterol levels are recommended to be <70 mg/dL LDL cholesterol is calculated using the Cardenas-NIH equation. Performed By: #### L KINSEY, 3024-03, 3 ####[facility] LABCLIA [id number] [address] OF [place] LDL/HDL RATIO, NF 3.75 mg/dL High <2.54 [facility] Comment on above: Order Comment: Yoanna cuba Type: BLOOD SPECIMENOrdering Facility: [facility] Address: [address] [place] [address] Result Comment: Refe rence: 1. National Cholesterol Education Program ATP III Guideline At-A-Glance Quick Desk Reference: National Heart, Lung, and Blood Cedar. National Institutes of Health. 2001: NIH Publication No. 01-3305. 2. An International Atherosclerosis Society position paper: global recommendations for the management of dyslipidemia: executive summary, Atherosclerosis. 2014: 232(2):410-413. Performed By: #### L KINSEY, 3024-03, 3015-11 ####[facility] LABCLIA [id number] [facility] [address] [address] [place] NON HDL CHOL, NF 146 mg/dL High <130 [facility] Comment on above: Order Comment: Speci men Type: BLOOD SPECIMENOrdering Facility: [facility] Address: [address] [place] [address] Result Comment: <130 mg/dL, Optimal 130-159 mg/dL, Near optimal/above optimal 160-189 mg/dL, Borderline high 190-219 mg/dL, High >219 mg/dL, Very high Secondary prevention optimal non HDL Cholesterol levels are recommended to be <100 mg/dL Performed By: #### L KINSEY, 3024-03, 3015-11 ####[facility] LABCLIA [id number] [place] [id number] [place] T CHOL/HDL RATIO NF 5.56 mg/dL High <5.10 [facility] Comment on above: Order Comment: Speci men Type: BLOOD SPECIMENOrdering Facility: [facility] Address: [address] [place] [address] Performed By: #### L KINSEY, 3024-03, 3015-11 ####[facility] LABCLIA [id number] [place] [id number] [place] TRIGLYCERIDES, NF 147 mg/dL Normal <150 [facility] Comment on above: Order Comment: Speci men Type: BLOOD SPECIMENOrdering Facility: [facility] Address: [address] [place] [id number] Result Comment: <150 mg/dL, Normal 150-199 mg/dL, Borderline high 200-499 mg/dL, High >499 mg/dL, Very high Performed By: #### L KINSEY, 3024-03, 3015-11 ####[facility] LABCLIA [id number] [place] [id number] [place] VLDL CHOLESTEROL, NF 25 mg/dL Normal <30 [facility] Comment on above: Order Comment: Yoanna cuba Type: BLOOD SPECIMENOrdering Facility: [facility] Address: [address] [place] [address] Performed By: #### L IPNF, 3023-7, 6-3 ####[facility] LABCLIA [id number] [place] [address] [place] T4 Free SerPl-mCncon 025 Free T4 [Mass/Vol] 1.0 ng/dL Normal 0.9-1.7 [facility] Comment on above: Order Comment: Yoanna cuba Type: BLOOD SPECIMENOrdering Facility: [facility] Address: [address] [place] [address] Performed By: #### L IPNF, 3024-03, 3 ####[facility] LABCLIA [id number] [address] [place] TSH SerPl-aCncon 01-01-2025 TSH Qn 3.010 m[IU]/L Normal 0.270-4.200 [facility] Comment on above: Order Comment: Yoanna cuba Type: BLOOD SPECIMENOrdering Facility: [facility] Address: [address] [place] [address] Result Comment: If t he patient is , TSH reference range varies by gestational period: First Trimester (weeks 9-12): 0.180-2.990 mIU/L Second Trimester: 0.110-3.980 mIU/L Third Trimester: 0.480-4.710 mIU/L Ulices Ramsey et al. A Practical Approach for the Verifications and Determination of Site- and Trimester-Specific Reference Intervals for Thyroid Function tests in . Thyroid, 2019:29:3:412-420. Robbie E, et al. 2017 Guidelines of the [place] Thyroid Association for the Diagnosis and Management of Thyroid Disease during and the . Thyroid, 2017:27:3:315-389. Performed By: #### L IPNF, 4-7, 3015-3 ####[facility] LABCLIA [id number] [address] [address] [place] Influenza virus A and B and SARS-CoV-2 (COVID-19) and Respiratory syncytial virus RNAOrdered By: Eliazar Amos on 11-15-2024 SARS-CoV-2 (COVID-19) RNA GREYSON+probe Ql (Unsp spec) [facility] Internal Medicine Office Vis iton 11-15-2024 Internal Medicine Office Visit [facility] [address] [place], [place] [address] OFFICE VISIT Date of Service: 11/15/24 MR#: [id number] Acct: [id number] Name: SUGEY WEST Rep #: [id number] : 2000 Provider: Dr. Eliazar acosta MD Age/Sex: 23/F [facility] Status: Signed Intake Vital Signs 07/19/24 10:33 [...] TO LOSE WEIGHT BEFORE BREAST REDUCTION SURGERY [facility] Medical History (Updated 11/15/24 @ 11:09 [...] daily sea (more content not included)... Normal [facility] - Hematology and Cell countsOrdered By: Eliazar Amos on 11-15-2024 HbA1c (Bld) [Mass fraction] 7.2 % High 4.2-6.3 [facility] M100.678on 11-15-2024 M100.678 SARS-CoV-2 (COVID 19 ) Negative INFLUENZA A Negative INFLUENZA B Negative RSV PCR Negative Normal [facility] Comment on above: Performed By: #### M 100.712 #### [facility] [address] [place], [place], [id number] [facility] 11-07-2024 OLU Telephone (STED) SUGEY WEST ([id number]) 2000 F CHT Date Time Provider Department 11/07/24 PAIGE MULLER During your visit today, we recorded the following information about you: Madison Carlisle MA 11/07/2024 8:59 AM Signed Left patient message to let her know she was scheduled at the [place] office,and that we are 2 1/2 hours away I said she could reschedule with the [place] office.I asked that she call and confirm [...] BID, # 30 gram(s), 0 Refill(s), Pharmacy: [id number], 177.5, cm, 03/13/23 10:35:00 EDT, Height, 117.5 - SUMAtriptan (IMITREX) 50 mg tablet TAKE 1 TABLET BY MOUTH EVERY 2 HOURS NEEDED FOR HEADACHE. MAX DOSE OF 2 TABLETS A DAY - cyclobenzaprine (FLEXERIL) 10 mg tablet Take 10 mg by mouth three times daily. prn - Insulin [place], Disposable, (BD ULTRAFINE III MINI PEN) 31 [...] Status:Closed by MADISON CARLISLE on 11/07/24 Normal [facility] Plastic Surgery Visit Report on 11-06-2024 Plastic Surgery Visit Report [facility] Plastic Reconstructive Surgery [address], [address] [place], [place] [id number] OFFICE VISIT Date of Service: 11/06/24 MR#: [id number] Acct: [id number] Name: SUGEY WEST Rep #: [id number] : 2000 Provider: Dr. Delores park MD Age/Sex: 23/F [facility] Status: Signed Intake Vital Signs 10/14/24 22:15 [...] 11/06/24 History Verio test strips) blood-glucose meter (HoardTouch #1 ea 11/06/24 11/06/24 History Verio Flex [...] breast reduction consult, pt admits to vaping. [facility] Medical History Poor appetite Wears glasses [...] of physical activity (more content not included)... [facility] 10-28-2024 [facility] Tele[facility] (ENWSTR) SUGEY WEST ([id number]) 2000 F T Date Time Provider Department 10/28/24 PAIGE MULLERSHEREE During your visit today, we recorded the [...] trulicity. Please advise. NARDA Artis Dianne C, [facility] 10/29/2024 2:54 PM Signed Patient's request [...] on: 10/29/2024 02:54 PM Modules accepted: Orders Mónica Casiano MA 10/29/2024 3:16 PM Signed ALEJANDRA ramon [...] two or more drugs concomitantly per ADA ([place] Diabetes Association) guidelines and; 3. Member has documented adherence and appropriate dose escalation (must achieve maximum recommended dose or document that maximum recommended dose is not tolerated or is clinically inappropriate) and; 4. Documentation includes a patient specific A1C goal if less than 7% and must include current A1C (within the last 6 months). The [place] Policy for Medical Necessity as posted on the [place] SPBM website and [facility] Preferred Drug List criteria were reviewed and per [place] Administrative Code Rule 5160-1-01 (C) and (B), [...] 1 ta (more content not included)... Normal [facility] Bedside Glucoseon 10-15-2024 FINGERSTICK GLU 88 mg/dL Normal 74-106 [facility] Comment on above: Result Comment: RICA OBREGON OF PATIENT CARE PER NURSING PROTOCOL Performed By: #### M 100.678 #### [facility] [address] [place], [address] [facility] deOrdered By: Shlomo Santizo on 10-15-2024 Bedside Glucose (Misc Panel) 88 mg/dL 74-106 [facility] Comment on above: MANAGEMENT OF PATIEN T CARE PER NURSING PROTOCOL Glucose [Mass/Vol] 88 mg/dL -106 [facility] Comment on above: MANAGEMENT OF PATIEN T CARE PER NURSING PROTOCOL 12 Lead EKGon 10-14-2024 12 Lead EKG [facility] Cardiovascular Services [address] [place] [address] 12 Lead EKG 10/14/24 2306 MR#: [id number] Acct: [id number] Name: SUGEY WEST Rep #: [id number] : 2000 From: George Stone MD Attending [...] Otherwise normal ECG Confirmed by George Stone ([id number]), development editor ROB HATCH ([id number]) on 10/15/2024 10:00:34 AM Referred By: Confirmed By: George Stone 10/15/24999 Date George Stone MD CC: Dr. Eliazar Amos MD; Dr. Shlomo Santizo DO Signed Normal [facility] Absolute lymphocyte countOrd ered By: Shlomo Santizo on 10-14-2024 Lymphocytes Auto (Unsp spec) [#/Vol] 3.85 10*3/uL 0.83-4.51 [facility] Absolute neutrophil countOrd ered By: Shlomo Santizo on 10-14-2024 Neutrophils (Bld) [#/Vol] 5.5 10*3/uL 2.0-7.7 [facility] Automated lymphocyte count a s percentage of total leukocytesOrdered By: Shlomo Santizo on 10-14-2024 Lymphocytes/100 WBC Auto (Unsp spec) 38.9 % 19-41 [facility] Basic Metabolic Profile (BMP )on 10-14-2024 BUN/CRE 12.6 RATIO Normal 10-20 [facility] Comment on above: Order Comment: 'TROP ' Serial specimen #1, #2 or #3: 1 Performed By: #### L 501.9520, L500.2500, L100.0100, L501.4020, L506.0400, L501.05490 ####[facility] [address] [place], [address] CA,Total 8.9 mg/dL Normal 8.5-10.1 [facility] Comment on above: Order Comment: 'TROP ' Serial specimen #1, #2 or #3: 1 Performed By: #### L 501.9520, L500.2500, L100.0100, L501.4020, L506.0400, L501.25798 ####[facility] [address] [place], [address] Chloride [Moles/Vol] 108 mmol/L High 98-107 [facility] Comment on above: Order Comment: 'TROP ' Serial specimen #1, #2 or #3: 1 Performed By: #### L 501.9520, L500.2500, L100.0100, L501.4020, L506.0400, L501.94880 ####[facility] [address] [place], [address] CO2 [Moles/Vol] 30.0 mmol/L Normal 21.0-32.0 [facility] Comment on above: Order Comment: 'TROP ' Serial specimen #1, #2 or #3: 1 Performed By: #### L 501.9520, L500.2500, L100.0100, L501.4020, L506.0400, L501.93666 ####[facility] [address] [place], [address] Creatinine [Mass/Vol] 0.72 mg/dL Normal 0.55-1.02 [facility] Comment on above: Order Comment: 'TROP ' Serial specimen #1, #2 or #3: 1 Result Comment: The validity of the calculated GFR GFRAA in patients over 70 years has not been determined. Clinical correlation is essential. Performed By: #### L 501.9520, L500.2500, L100.0100, L501.4020, L506.0400, L501.53680 ####[facility] [address] [place], [address] ECRCL 189.31 ml/min Normal [facility] Comment on above: Order Comment: 'TROP ' Serial specimen #1, #2 or #3: 1 Performed By: #### L 501.9520, L500.2500, L100.0100, L501.4020, L506.0400, L501.86268 ####[facility] [address] [place], [address] EST GFR - AA 127 mL/min Normal >60 [facility] Comment on above: Order Comment: 'TROP ' Serial specimen #1, #2 or #3: 1 Result Comment: Afri can [place] GFR Calc Performed By: #### L 501.9520, L500.2500, L100.0100, L501.4020, L506.0400, L501.57755 ####[facility] [address] [place], [address] GAP 5 Normal 5-15 [facility] Comment on above: Order Comment: 'TROP ' Serial specimen #1, #2 or #3: 1 Performed By: #### L 501.9520, L500.2500, L100.0100, L501.4020, L506.0400, L501.94420 ####[facility] [address] [place], [address] GFR/1.73 sq M.predicted among non-blacks MDRD (S/P/Bld) [Vol rate/Area] 105 mL/min/{1.73_m2} Normal >60 [facility] Comment on above: Order Comment: 'TROP ' Serial specimen #1, #2 or #3: 1 Result Comment: Non- GFR Calc Performed By: #### L 501.9520, L500.2500, L100.0100, L501.4020, L506.0400, L501.72819 ####[facility] [address] [place], [address] Glucose [Mass/Vol] 108 mg/dL High 74-106 [facility] Comment on above: Order Comment: 'TROP ' Serial specimen #1, #2 or #3: 1 Result Comment: Fast ing Glucose result from 100 to 125 mg/dL suggests IMPAIRED HOMEOSTASIS per A.D.A. criteria. Performed By: #### L 501.9520, L500.2500, L100.0100, L501.4020, L506.0400, L501.78375 ####[facility] [address] [place], [address] Potassium [Moles/Vol] 3.6 mmol/L Normal 3.5-5.1 [facility] Comment on above: Order Comment: 'TROP ' Serial specimen #1, #2 or #3: 1 Performed By: #### L 501.9520, L500.2500, L100.0100, L501.4020, L506.0400, L501.21945 ####[facility] [address] [place], [address] Sodium [Moles/Vol] 143 mmol/L Normal 136-145 [facility] Comment on above: Order Comment: 'TROP ' Serial specimen #1, #2 or #3: 1 Performed By: #### L 501.9520, L500.2500, L100.0100, L501.4020, L506.0400, L501.98852 ####[facility] [address] [place], [address] Urea nitrogen [Mass/Vol] 9 mg/dL Normal 7-18 [facility] Comment on above: Order Comment: 'TROP ' Serial specimen #1, #2 or #3: 1 Performed By: #### L 501.9520, L500.2500, L100.0100, L501.4020, L506.0400, L501.99582 ####[facility] [address] [place], [address] Basophil percentageOrdered B y: Shlomo Santizo on 10-14-2024 Basophils/100 WBC (Bld) 0.2 % 0-1 [facility] Bedside Glucoseon 10-14-2024 FINGERSTICK GLU 98 mg/dL Normal 74-106 [facility] Comment on above: Result Comment: RICA OBREGON OF PATIENT CARE PER NURSING PROTOCOL Performed By: #### L 501.080 #### [facility] [address] [place], [address] Blood urea nitrogen (BUN)/cr eatinine ratioOrdered By: Shlomo Santizo on 10-14-2024 Urea nitrogen/Creatinine [Mass ratio] 12.6 mg/mg 10-20 [facility] CBC W/Diff, Automatedon 10-05 Absolute Lymph 3.85 X10 3/uL Normal 0.83-4.51 [facility] Comment on above: Performed By: #### L 501.9520, L500.2500, L100.0100, L501.4020, L506.0400, L501.09268 ####[facility] [address] [place], [address] Absolute Neut 5.5 X10 3/uL Normal 2.0-7.7 [facility] Comment on above: Performed By: #### L 501.9520, L500.2500, L100.0100, L501.4020, L506.0400, L501.34912 ####[facility] [address] [place], [address] Basophils/100 WBC (Bld) 0.2 % Normal 0-1 [facility] Comment on above: Performed By: #### L 501.9520, L500.2500, L100.0100, L501.4020, L506.0400, L501.91339 ####[facility] [address] [place], [address] Eosinophils/100 WBC (Bld) 1.2 % Normal 0-5 [facility] Comment on above: Performed By: #### L 501.9520, L500.2500, L100.0100, L501.4020, L506.0400, L501.84916 ####[facility] [address] [place], [address] Erythrocyte distribution width (RBC) [Ratio] 12.3 % Normal 11.6-14.6 [facility] Comment on above: Performed By: #### L 501.9520, L500.2500, L100.0100, L501.4020, L506.0400, L501.33798 ####[facility] [address] [place], [address] Hematocrit (Bld) [Volume fraction] 35.3 % Low 37-47 [facility] Comment on above: Performed By: #### L 501.9520, L500.2500, L100.0100, L501.4020, L506.0400, L501.98628 ####[facility] [address] [place], [address] Hemoglobin (Bld) [Mass/Vol] 12.5 g/dL Normal 12.0-15.0 [facility] Comment on above: Performed By: #### L 501.9520, L500.2500, L100.0100, L501.4020, L506.0400, L501.51432 ####[facility] [address] [place], [address] IG% 0.300 Normal 0.0-0.9 [facility] Comment on above: Result Comment: IG% - Immature Granulocytes (promyelocytes, myelocytes and metamyelocytes) > 1% indicates that a LEFT SHIFT is Present. Performed By: #### L 501.9520, L500.2500, L100.0100, L501.4020, L506.0400, L501.72002 ####[facility] [address] [place], [address] Lymphocytes/100 WBC (Bld) 38.9 % Normal 19-41 [facility] Comment on above: Performed By: #### L 501.9520, L500.2500, L100.0100, L501.4020, L506.0400, L501.73296 ####[facility] [address] [place], [address] MCH (RBC) [Entitic mass] 33.1 pg High 27.0-32.0 [facility] Comment on above: Performed By: #### L 501.9520, L500.2500, L100.0100, L501.4020, L506.0400, L501.31898 ####[facility] [address] [place], [address] MCHC (RBC) [Mass/Vol] 35.4 g/dL Normal 32-36 [facility] Comment on above: Performed By: #### L 501.9520, L500.2500, L100.0100, L501.4020, L506.0400, L501.72501 ####[facility] [address] [place], [address] MCV (RBC) [Entitic vol] 93.4 fL Normal 81-99 [facility] Comment on above: Performed By: #### L 501.9520, L500.2500, L100.0100, L501.4020, L506.0400, L501.36186 ####[facility] [address] [place], [address] Monocytes/100 WBC (Bld) 3.5 % Normal 0-10 [facility] Comment on above: Performed By: #### L 501.9520, L500.2500, L100.0100, L501.4020, L506.0400, L501.31674 ####[facility] [address] [place], [address] Neutrophils/100 WBC (Bld) 55.9 % Normal 47-70 [facility] Comment on above: Performed By: #### L 501.9520, L500.2500, L100.0100, L501.4020, L506.0400, L501.50570 ####[facility] [address] [place], [address] Nucleated RBC (Bld) [#/Vol] 0 10*3/uL Normal 0-5 [facility] Comment on above: Performed By: #### L 501.9520, L500.2500, L100.0100, L501.4020, L506.0400, L501.11324 ####[facility] [address] [place], [address] Platelet mean volume (Bld) [Entitic vol] 8.4 fL Normal 6.2-12.0 [facility] Comment on above: Performed By: #### L 501.9520, L500.2500, L100.0100, L501.4020, L506.0400, L501.31260 ####[facility] [address] [place], [address] Platelets (Bld) [#/Vol] 273 10*3/uL Normal 150-450 [facility] Comment on above: Performed By: #### L 501.9520, L500.2500, L100.0100, L501.4020, L506.0400, L501.34768 ####[facility] [address] [place], [address] RBC (Bld) [#/Vol] 3.78 10*6/uL Low 4.2-5.4 [facility] Comment on above: Performed By: #### L 501.9520, L500.2500, L100.0100, L501.4020, L506.0400, L501.95721 ####[facility] [address] [place], [address] RDW SD 42.0 fl Normal 35.1-43.9 [facility] Comment on above: Performed By: #### L 501.9520, L500.2500, L100.0100, L501.4020, L506.0400, L501.23174 ####[facility] [address] [place], [address] WBC (Bld) [#/Vol] 9.9 10*3/uL Normal 4.4-11.0 [facility] Comment on above: Performed By: #### L 501.9520, L500.2500, L100.0100, L501.4020, L506.0400, L501.90855 ####[facility] [address] [place], [address] Carbon dioxide measurementOr dered By: Shlomo Santizo on 10-14-2024 CO2 [Moles/Vol] 30.0 mmol/L 21.0-32.0 [facility] Chest PA and Lateralon 10-14 Chest PA and Lateral [facility] Imaging Services [address] [place] [address] Chest PA and Lateral MR#: [id number] Acct: [id number] Name: SUGEY WEST Rep #: [id number] : 2000 F 23 From: Deepak Hyatt DO PCP: Dr. Eliazar Amos MD Status: REG ER Study: Chest PA and Lateral Date of Exam: 10/14/24 Exam# [id number] Ordering Dr: Shlomo Santizo DO PROCEDURE: CHEST PA AND LATERAL REASON FOR EXAM: Chest pain. TECHNIQUE: Frontal and lateral views of the chest. COMPARISON: Chest x-ray from 08/12/2022. FINDINGS: Cardiac size and pulmonary vasculature are within normal limits. No consolidation, pleural effusion, or pneumothorax is present. RAD/Chest PA and Lateral IMPRESSION: No acute cardiopulmonary process. Reading Location: [facility] CC: Dr. Eliazar Amos MD; Dr. Shlomo Santizo DO Park Landscape Architect: Signed Normal [facility] Chloride measurementOrdered By: Shlomo Santizo on 10-14-2024 Chloride [Moles/Vol] 108 mmol/L High 98-107 [facility] Direct serum free thyroxine (FT4) measurementOrdered By: Shlomo Santizo on 10-14-2024 Free T4 [Mass/Vol] 0.95 ng/dL 0.76-1.46 [facility] Emergency Department Summary on 10-14-2024 Emergency Department Summary [facility] Medical Records Department [address] [place] [address] Emergency Department Summary 10/14/24 MR#: [id number] Acct: [id number] Name: SUGEY WEST Rep #: [id number] : 2000 23 From: Shlomo Santizo DO [...] that she got her Trulicity shot yesterday. [facility] Medical History Poor appetite Wears glasses Depression [...] ROS E (more content not included)... Normal [facility] Eosinophil percentageOrdered By: Shlomo Santizo on 10-14-2024 Eosinophils/100 WBC (Bld) 1.2 % 0-5 [facility] Erythrocyte distribution wid th ratioOrdered By: Shlomo Santizo on 10-14-2024 Erythrocyte distribution width (RBC) [Ratio] 12.3 % 11.6-14.6 [facility] Erythrocyte distribution wid th standard deviationOrdered By: Shlomo Santizo on 10-14-2024 Erythrocyte distribution width (RBC) [Entitic vol] 42.0 fL 35.1-43.9 [facility] Erythrocyte distribution width (RBC) [Ratio] 42.0 fl 35.1-43.9 [facility] Estimated glomerular filtrat ion rate (GFR) AmericanOrdered By: Shlomo Santizo on 10-14-2024 Estimated GFR (MDRD) Amer 127 mL/min >60 [facility] Comment on above: GFR Calc Estimation of creatinine caitlin aranceOrdered By: Shlomo Santizo on 10-14-2024 Estimated Creatinine Clearance Calc 189.31 ml/min [facility] Free T3on 10-14-2024 Free T3 [Mass/Vol] 3.4 pg/mL Normal 2.18-3.98 [facility] Comment on above: Order Comment: 'TROP ' Serial specimen #1, #2 or #3: 1 Performed By: #### L 501.9520, L500.2500, L100.0100, L501.4020, L506.0400, L501.78302 ####[facility] [address] [place], [place], [id number] Free N9Iipaomm By: Shlomo flynn on 10-14-2024 Free T3 [Mass/Vol] 3.4 pg/mL 2.18-3.98 [facility] Free Triiodothyronine (T3) pg/dL 3.4 pg/mL 2.18-3.98 [facility] Glomerular filtration rate ( GFR) estimationOrdered By: Shlomo Santizo on 10-14-2024 Estimated GFR (MDRD) Non-Af Amer 105 mL/min >60 [facility] Comment on above: Non- GFR Calc GFR/1.73 sq M.predicted among non-blacks MDRD (S/P/Bld) [Vol rate/Area] 105 mL/min/{1.73_m2} >60 [facility] Comment on above: Non- GFR Calc Glucose measurementOrdered B y: Shlomo Adrien on 10-14-2024 Glucose [Mass/Vol] 108 mg/dL High 74-106 [facility] Comment on above: Fasting Glucose resu lt from 100 to 125 mg/dL suggests IMPAIRED HOMEOSTASIS per A.D.A. criteria. Hematocrit Auto (Bld) [Volum e fraction]Ordered By: Shlomo Santizo on 10-14-2024 Hematocrit (Bld) [Volume fraction] 35.3 % Low 37-47 [facility] Hemoglobin measurementOrdere d By: Shlomo Santizo on 10-14-2024 Hemoglobin (Bld) [Mass/Vol] 12.5 g/dL 12.0-15.0 [facility] Immature granulocytes/100 WB C Auto (Bld)Ordered By: Shlomo Santizo on 10-14-2024 Immature granulocytes/100 WBC (Bld) 0.300 % 0.0-0.9 [facility] Comment on above: IG% - Immature Granu locytes (promyelocytes, myelocytes and metamyelocytes) > 1% indicates that a LEFT SHIFT is Present. Influenza virus A and B and SARS-CoV-2 (COVID-19) and Respiratory syncytial virus RNAOrdered By: Shlomo Santizo on 10-14-2024 SARS-CoV-2 (COVID-19) RNA GREYSON+probe Ql (Unsp spec) [facility] L501.4020on 10-14-2024 TROPONIN-I HS 5 pg/mL Normal 3.0-54.0 [facility] Comment on above: Order Comment: 'TROP ' Serial specimen #1, #2 or #3: 1 Result Comment: Becki de la torre Note: New Test Units and Gender Specific Reference Ranges. For more information see Policy Stat Procedure Otley High Sensitivity Troponin (TNIH) and attachments. Performed By: #### L 501.9520, L500.2500, L100.0100, L501.4020, L506.0400, L501.06631 ####[facility] [address] [place], [place], [address] Lymphocytes Auto (Unsp spec) [#/Vol]Ordered By: Shlomo Santizo on 10-14-2024 Lymphocytes (Bld) [#/Vol] 3.85 10*3/uL 0.83-4.51 [facility] Lymphocytes/100 WBC Auto (Un sp spec)Ordered By: Shlomo Santizo on 10-14-2024 Lymphocytes/100 WBC (Bld) 38.9 % 19-41 [facility] M100.678on 10-14-2024 M100.678 Pending SARS-CoV-2 (COVID 19) Negative INFLUENZA A Negative INFLUENZA B Negative RSV PCR Negative Normal [facility] Comment on above: Performed By: #### M 100.678 #### [facility] [address] [place], [place], [id number] MCV (mean corpuscular volume ) determinationOrdered By: Shlomo Santizo on 10-14-2024 MCV (RBC) [Entitic vol] 93.4 fL 81-99 [facility] Mean corpuscular hemoglobin (MCH) determinationOrdered By: Shlomo Santizo on 10-14-2024 MCH (RBC) [Entitic mass] 33.1 pg High 27.0-32.0 [facility] Mean corpuscular hemoglobin concentration (MCHC) determinationOrdered By: Shlomo Santizo on 10-14-2024 MCHC (RBC) [Mass/Vol] 35.4 g/dL 32-36 [facility] Mean platelet volume determi nationOrdered By: Shlomo Santizo on 10-14-2024 Platelet mean volume (Bld) [Entitic vol] 8.4 fL 6.2-12.0 [facility] Monocyte percentageOrdered B y: Shlomo Santizo on 10-14-2024 Monocytes/100 WBC (Bld) 3.5 % 0-10 [facility] Neutrophil percentageOrdered By: Shlomo Santizo on 10-14-2024 Neutrophils/100 WBC (Bld) 55.9 % 47-70 [facility] Nucleated red blood cell per centageOrdered By: Shlomo Santizo on 10-14-2024 Nucleated RBC/100 WBC (Bld) [Ratio] 0 % 0-5 [facility] Platelet countOrdered By: Armando Santizo on 10-14-2024 Platelets (Bld) [#/Vol] 273 10*3/uL 150-450 [facility] Potassium measurementOrdered By: Shlomo Santizo on 10-14-2024 Potassium [Moles/Vol] 3.6 mmol/L 3.5-5.1 [facility] RBC Auto (Bld) [#/Vol]Ordere d By: Shlomo Santizo on 10-14-2024 RBC (Bld) [#/Vol] 3.78 10*6/uL Low 4.2-5.4 [facility] Serum anion gap measurementO rdered By: Shlomo Santizo on 10-14-2024 Anion gap [Moles/Vol] 5 mmol/L 5-15 [facility] Serum or plasma calcium jalyn urement (mass/volume)Ordered By: Shlomo Santizo on 10-14-2024 Calcium [Mass/Vol] 8.9 mg/dL 8.5-10.1 [facility] Serum or plasma creatinine m easurement (mass/volume)Ordered By: Shlomo Santizo on 10-14-2024 Creatinine [Mass/Vol] 0.72 mg/dL 0.55-1.02 [facility] Comment on above: The validity of the calculated GFR & GFRAA in patients over 70 years has not been determined. Clinical correlation is essential. Serum or plasma thyroid stim ulating hormone (TSH) measurement (units/volume)Ordered By: Shlomo Santizo on 10-14-2024 TSH Qn 4.220 uIU/mL High 0.358-3.740 [facility] Serum or plasma urea nitroge n measurement (mass/volume)Ordered By: Shlomo Santizo on 10-14-2024 Urea nitrogen [Mass/Vol] 9 mg/dL 7-18 [facility] Sodium levelOrdered By: Josh Santizo on 10-14-2024 Sodium [Moles/Vol] 143 mmol/L 136-145 [facility] T4 Free Directon 10-14-2024 T4 FREE DIRECT 0.95 ng/dL Normal 0.76-1.46 [facility] Comment on above: Order Comment: 'TROP ' Serial specimen #1, #2 or #3: 1 Performed By: #### L 501.9520, L500.2500, L100.0100, L501.4020, L506.0400, L501.59422 ####[facility] [address] [place], [place], [address] TSH QnOrdered By: Shlomo trevino on 10-14-2024 Thyroid Stimulating Hormone (TSH) 4.220 uIU/mL High 0.358-3.740 [facility] Thyroid Stim Hormone (TSH)on 10-14-2024 TSH 4.220 uIU/mL High 0.358-3.740 [facility] Comment on above: Order Comment: 'TROP ' Serial specimen #1, #2 or #3: 1 Performed By: #### L 501.9520, L500.2500, L100.0100, L501.4020, L506.0400, L501.06140 ####[facility] [address] [place], [place], [id number] Troponin IOrdered By: Shlomo Santizo on 10-14-2024 Troponin I 5 pg/mL 3.0-54.0 [facility] Comment on above: Please Note: New Emy t Units and Gender Specific Reference Ranges. For more information see Policy Stat Procedure [place] High Sensitivity Troponin (TNIH) and attachments. Troponin I High Sensitivity 5 pg/mL 3.0-54.0 [facility] Comment on above: Please Note: New Emy t Units and Gender Specific Reference Ranges. For more information see Policy Stat Procedure [place] High Sensitivity Troponin (TNIH) and attachments. White blood cell (WBC) count Ordered By: Shlomo Santizo on 10-14-2024 WBC (Bld) [#/Vol] 9.9 10*3/uL 4.4-11.0 [facility] CNPJessica 09-24-2024 [facility] Tele[facility] (ENWSTR) SUGEY WEST ([id number]) 2000 F [facility] Date Time Provider Department 09/24/24 PAIGE MULLER ENWSTR During your visit today, we recorded the following information about you: Mónica Casiano MA 09/24/2024 3:42 PM Signed Cover my meds PA mancia [id number] started. NARDA Artis Brittney, RN 10/31/2024 12:03 [...] BID, # 30 gram(s), 0 Refill(s), Pharmacy: [facility] #[id number], 177.5, cm, 03/13/23 10:35:00 EDT, Height, 117.5 - SUMAtriptan (IMITREX) 50 mg tablet TAKE 1 TABLET BY MOUTH EVERY 2 HOURS NEEDED FOR HEADACHE. MAX DOSE OF 2 TABLETS A DAY - cyclobenzaprine (FLEXERIL) 10 mg tablet Take 10 mg by mouth three times daily. prn - Insulin Loyalhanna, Disposable, (BD ULTRAFINE III MINI PEN) 31 [...] Encounter Status:Closed by MÓNICA CASIANO on 09/24/24 [facility] ED Provider Noteon ED Provider Note [...] [09/07/242140] Temp Heart Rate Resp BP 36.6 ?C [...] DEPARTMENT COURSE and DIFFERENTIAL DIAGNOSIS/MDM: Vitals: Vitals: 09/07/241 09/07/242142 BP: (!) 138/98 Pulse: 87 Resp: [...] Discharge 09/07/2024 10:03:59 PM PATIENT REFERRED TO: [facility] EMERGENCY DEPT [address] [place] [id number] As needed, If symptoms worsen DISCHARGE [...] and ph (more content not included)... Normal [facility] Office Vis tim 07-19-2024 Internal Medicine Office Visit [facility] [facility] [place] [address] OFFICE VISIT Date of Service: 07/19/24 MR#: [id number] Acct: [id number] Name: SUGEY WEST Rep #: [id number] : 2000 Provider: Dr. 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 Normal [facility] ([id number]) 2000 F T Date Time Provider Department [...] to take the 4.5 mg? Paige [facility]er APRN.[facility] 06/26/2024 2:19 PM Signed Message states patient [...] # 30 gram(s), 0 Refill(s), Pharmacy: [facility] #[id number], 177.5, cm, 03/13/23 10:35:00 EDT, Height, 117.5 - SUMAtriptan (IMITREX) 50 mg tablet TAKE 1 TABLET BY MOUTH EVERY 2 HOURS NEEDED FOR HEADACHE. MAX DOSE OF 2 TABLETS A DAY - cyclobenzaprine (FLEXERIL) 10 mg tablet Take 10 mg by mouth three times daily. prn - Insulin Loyalhanna, Disposable, (BD ULTRAFINE III MINI PEN) 31 gauge x /16 Uses 4 per day with insulin injection [...] Status:Closed by PAIGE MULLER on 06/27/24 Normal [facility] Activated partial thrombopla stin time (aPTT) in platelet poor plasma by coagulation aOrdered By: Fortunato Yap on 11-22-2023 aPTT Coag (PPP) [Time] 28.1 s 24.1-36.2 [facility] Basophil percentageOrdered B y: Fortunato Yap on 11-22-2023 Bilirubin [Mass/Vol] 0.40 mg/dL 0.20-1.00 [facility] Comment on above: For patients on eltr ombopag therapy, use of Dimension Otley TBIL is not recommended. Chloride [Moles/Vol] 110 mmol/L 98-107 [facility] Glucose [Mass/Vol] 123 mg/dL 74-106 [facility] Comment on above: Fasting Glucose resu lt from 100 to 125 mg/dL suggests IMPAIRED HOMEOSTASIS per A.D.A. criteria. Hemoglobin (Bld) [Mass/Vol] 13.0 g/dL 12.0-15.0 [facility] Potassium [Moles/Vol] 3.5 mmol/L 3.5-5.1 [facility] Protein [Mass/Vol] 6.9 g/dL 6.4-8.2 [facility] Sodium [Moles/Vol] 141 mmol/L 136-145 [facility] WBC (Bld) [#/Vol] 9.6 10*3/uL 4.4-11.0 [facility] Determination of erythrocyte mean corpuscular volume (MCV)Ordered By: Fortunato Yap on 11-22-2023 MCV (RBC) [Entitic vol] 98.0 fL 81-99 [facility] Direct bilirubinOrdered By: Fortunato Yap on 11-22-2023 Bilirubin.direct [Mass/Vol] 0.11 mg/dL 0.00-0.30 [facility] Erythrocyte distribution wid th ratioOrdered By: Fortunato Yap on 11-22-2023 Erythrocyte distribution width (RBC) [Ratio] 12.2 % 11.6-14.6 [facility] Erythrocyte distribution wid th standard deviationOrdered By: Fortunato Yap on 11-22-2023 Erythrocyte distribution width (RBC) [Entitic vol] 43.5 fL 35.1-43.9 [facility] Hematocrit Auto (Bld) [Volum e fraction]Ordered By: Fortunato Yap on 11-22-2023 Hematocrit (Bld) [Volume fraction] 39.0 % 37-47 [facility] - Chemistry and C hemistry - challengeOrdered By: Fortunato Yap on 11-22-2023 ALP [Catalytic activity/Vol] 52 U/L 45-117 [facility] ALT [Catalytic activity/Vol] 23 U/L 13-56 [facility] CO2 [Moles/Vol] 24.0 mmol/L 21.0-32.0 [facility] Globulin (S) [Mass/Vol] 3.3 g/dL 2.2-4.2 [facility] Urea nitrogen/Creatinine [Mass ratio] 11.1 mg/mg 10-20 [facility] HCG ( test) Ql (U) Negative [facility] Comment on above: Very dilute urine sp ecimens, as indicated by a low specificgravity, may not contain senior customer service representative levels of hCG. If is still suspected, a first morning urinespecimen should be collected 48 hours later and tested. Laboratory - CoagulationOrde red By: Fortunato Yap on 11-22-2023 INR Coag (Bld) [Relative time] 1.0 {INR} [facility] PT Coag (PPP) [Time] 13.6 s 11.7-14.9 [facility] - Hematology and Cell countsOrdered By: Fortunato Yap on 11-22-2023 MCH (RBC) [Entitic mass] 32.7 pg 27.0-32.0 [facility] MCHC (RBC) [Mass/Vol] 33.3 g/dL 32-36 [facility] Platelet mean volume (Bld) [Entitic vol] 8.5 fL 6.2-12.0 [facility] Platelets (Bld) [#/Vol] 303 10*3/uL 150-450 [facility] No Panel InformationOrdered By: Fortunato Yap on 11-22-2023 Estimated Creatinine Clearance Calc 182.94 ml/min [facility] Estimated GFR (MDRD) Amer 127 mL/min >60 [facility] Comment on above: GFR Calc Estimated GFR (MDRD) Non-Af Amer 105 mL/min >60 [facility] Comment on above: Non- GFR Calc RBC Auto (Bld) [#/Vol]Ordere d By: Fortunato Yap on 11-22-2023 RBC (Bld) [#/Vol] 3.98 10*6/uL 4.2-5.4 [facility] Serum or plasma calcium jalyn urement (mass/volume)Ordered By: Fortunato Yap on 11-22-2023 Calcium [Mass/Vol] 8.6 mg/dL 8.5-10.1 [facility] Serum or plasma creatinine m easurement (mass/volume)Ordered By: Fortunato Yap on 11-22-2023 Creatinine [Mass/Vol] 0.72 mg/dL 0.55-1.02 [facility] Comment on above: The validity of the calculated GFR & GFRAA in patients over 70 years has not been determined. Clinical correlation is essential. Serum or plasma urea nitroge n measurement (mass/volume)Ordered By: Fortunato Yap on 11-22-2023 Urea nitrogen [Mass/Vol] 8 mg/dL 7-18 [facility] Thin prep Papanicolaou smear with manual screeningOrdered By: Indio Olivares on 11-22-2023 Thin prep Papanicolaou smear with manual screening 165 mg/dL 74-106 [facility] Comment on above: MANAGEMENT OF PATIEN T CARE PER NURSING PROTOCOL Thin prep Papanicolaou smear with manual screeningOrdered By: Fortunato Yap on 11-22-2023 Thin prep Papanicolaou smear with manual screening 3.6 g/dL 3.2-5.0 [facility] Thin prep Papanicolaou smear with manual screening 15 U/L 15-37 [facility] Thin prep Papanicolaou smear with manual screening 7 5-15 [facility] CVFLURVon 10-25-2023 FLU A PCR Negative Normal Negative [facility] ([place]) Comment on above: Performed By: #### C VFLURV, STREPA ####[address] [place], [place] [address] FLU B PCR Negative Normal Negative [facility] ([place]) Comment on above: Performed By: #### C VFLURV, STREPA ####[address] [place], [place] [address] RSV PCR Negative Normal Negative [facility] ([place]) Comment on above: Performed By: #### C VFLURV, STREPA ####[address] [place], [place] [address] SARS-CoV-2 (COVID-19) RNA GREYSON+probe Ql (Unsp spec) Negative Normal Negative [facility] ([place]) Comment on above: Result Comment: Resu lts [...] Performed By: #### C VFLURV, STREPA ####[address] [place], [place] [address] STREPAon 10-25-2023 Group A Strep PCR Not detected Normal Not Detected [facility] ([place]) Comment on above: Performed By: #### C VFLURV, STREPA ####[address] [place], [place] [address] Group A Strep PCR Int Normal [facility] ([place]) Comment on above: Result Comment: Nega tive [...] Performed By: #### C VFLURV, STREPA ####[address] [place], [place] [address] LABORATORYOrdered By: Edith Rodriguez on 10-24-2023 FLUAV [...] HbA1c (Bld) [Mass fraction] 5.9 % 4.2-6.3 [facility] Serum or plasma thyroid stim ulating hormone (TSH) measurement (units/volume)Ordered By: elijah Amos on 10-12-2023 TSH Qn 0.87 uIU/mL 0.358-3.74 [facility] Thin prep Papanicolaou smear with manual screeningOrdered By: erniejunction citysharon Amos on 10-12-2023 Thin prep Papanicolaou smear with manual screening 0.88 ng/dL 0.76-1.46 [facility] Absolute lymphocyte countOrd ered By: Eliazar Amos on 08-03-2023 Lymphocytes Auto (Unsp spec) [#/Vol] 2.77 10*3/uL 0.83-4.51 [facility] Basophil percentageOrdered B y: Eliazar Amos on 08-03-2023 Basophils/100 WBC (Bld) 0.2 % 0-1 [facility] Bilirubin [Mass/Vol] 0.20 mg/dL 0.20-1.00 [facility] Comment on above: For patients on eltr ombopag therapy, use of Dimension [place] TBIL is not recommended. Chloride [Moles/Vol] 106 mmol/L 98-107 [facility] Eosinophils/100 WBC (Bld) 1.1 % 0-5 [facility] Glucose [Mass/Vol] 90 mg/dL 74-106 [facility] Neutrophils (Bld) [#/Vol] 5.1 10*3/uL 2.0-7.7 [facility] Neutrophils/100 WBC (Bld) 61.4 % 47-70 [facility] Potassium [Moles/Vol] 4.1 mmol/L 3.5-5.1 [facility] Protein [Mass/Vol] 7.6 g/dL 6.4-8.2 [facility] Sodium [Moles/Vol] 140 mmol/L 136-145 [facility] WBC (Bld) [#/Vol] 8.4 10*3/uL 4.4-11.0 [facility] Blood erythrocytes count (nu mber/volume)Ordered By: Eliazar Amos on 08-03-2023 RBC (Bld) [#/Vol] 4.09 10*6/uL 4.2-5.4 [facility] Blood hemoglobin measurement (mass/volume)Ordered By: Eliazar Amos on 08-03-2023 Hemoglobin (Bld) [Mass/Vol] 14.0 g/dL 12.0-15.0 [facility] Blood lymphocytes/100 leukoc ytesOrdered By: Eliazar Amos on 08-03-2023 Lymphocytes/100 WBC (Bld) 33.2 % 19-41 [facility] Blood monocytes/100 leukocyt esOrdered By: Eliazar Amos on 08-03-2023 Monocytes/100 WBC (Bld) 4.0 % 0-10 [facility] Blood platelet mean volumeOr dered By: Eliazar Amos on 08-03-2023 Platelet mean volume (Bld) [Entitic vol] 8.9 fL 6.2-12.0 [facility] Determination of erythrocyte mean corpuscular volume (MCV)Ordered By: Eliazar Amos on 08-03-2023 MCV (RBC) [Entitic vol] 101.0 fL 81-99 [facility] Hematocrit Auto (Bld) [Volum e fraction]Ordered By: Eliazar Amos on 08-03-2023 Hematocrit (Bld) [Volume fraction] 41.3 % 37-47 [facility] Laboratory - Chemistry and C hemistry - challengeOrdered By: Eliazar Amos on 08-03-2023 ALP [Catalytic activity/Vol] 58 U/L 45-117 [facility] ALT [Catalytic activity/Vol] 39 U/L 13-56 [facility] CO2 [Moles/Vol] 30.0 mmol/L 21.0-32.0 [facility] Globulin (S) [Mass/Vol] 3.9 g/dL 2.2-4.2 [facility] Urea nitrogen/Creatinine [Mass ratio] 19.5 mg/mg 10-20 [facility] Laboratory - Hematology and Cell countsOrdered By: Calvinjunction citysharon Amos on 08-03-2023 Erythrocyte distribution width (RBC) [Entitic vol] 43.4 fL 35.1-43.9 [facility] Erythrocyte distribution width (RBC) [Ratio] 11.9 % 11.6-14.6 [facility] Immature granulocytes/100 WBC (Bld) 0.100 % 0.0-0.9 [facility] Comment on above: IG% - Immature Granu locytes (promyelocytes, myelocytes and metamyelocytes) > 1% indicates that a LEFT SHIFT is Present. MCH (RBC) [Entitic mass] 34.2 pg 27.0-32.0 [facility] Nucleated RBC/100 WBC (Bld) [Ratio] 0 % 0-5 [facility] Laboratory - Hematology and Cell countson 08-03-2023 HbA1c (Bld) [Mass fraction] 6.8 % 4.2-6.3 [facility] MCHC Auto (RBC) [Mass/Vol]Or dered By: Eliazar Amos on 08-03-2023 MCHC (RBC) [Mass/Vol] 33.9 g/dL 32-36 [facility] No Panel InformationOrdered By: Eliazar Amos on 08-03-2023 Estimated GFR (MDRD) Amer 128 mL/min >60 [facility] Comment on above: GFR Calc Estimated GFR (MDRD) Non-Af Amer 105 mL/min >60 [facility] Comment on above: Non- GFR Calc Platelets bldOrdered By: Minh Amos on 08-03-2023 Platelets (Bld) [#/Vol] 294 10*3/uL 150-450 [facility] Serum or plasma albumin jalyn urement (mass/volume)Ordered By: Eliazar Amos on 08-03-2023 Albumin [Mass/Vol] 3.7 g/dL 3.2-5.0 [facility] Serum or plasma albumin/glob ulin mass ratioOrdered By: Eliazar Amos on 08-03-2023 Albumin/Globulin [Mass ratio] 0.9 {ratio} 0.9-2.4 [facility] Serum or plasma calcium jalyn urement (mass/volume)Ordered By: Eliazar Amos on 08-03-2023 Calcium [Mass/Vol] 9.4 mg/dL 8.5-10.1 [facility] Serum or plasma creatinine m easurement (mass/volume)Ordered By: Eliazar Amos on 08-03-2023 Creatinine [Mass/Vol] 0.72 mg/dL 0.55-1.02 [facility] Comment on above: The validity of the calculated GFR & GFRAA in patients over 70 years has not been determined. Clinical correlation is essential. Serum or plasma urea nitroge n measurement (mass/volume)Ordered By: Eliazar Amos on 08-03-2023 Urea nitrogen [Mass/Vol] 14 mg/dL 7-18 [facility] Thin prep Papanicolaou smear with manual screeningOrdered By: Eliazar Amos on 08-03-2023 Thin prep Papanicolaou smear with manual screening 18 U/L 15-37 [facility] Thin prep Papanicolaou smear with manual screening 4 5-15 [facility] HEMOGLOBIN A1C (POC)on 06-21 HbA1c (Bld) [Mass fraction] 9.1 % Abnormal 4.2 - 5.6 % [facility] US THYROID/PARATHYROIDon [facility] Absolute lymphocyte countOrd ered By: Eliazar Amos on 05-11-2023 Lymphocytes Auto (Unsp spec) [#/Vol] 2.33 10*3/uL 0.83-4.51 [facility] Basophil percentageOrdered B y: Eliazar Amos on 05-11-2023 Basophils/100 WBC (Bld) 0.4 % 0-1 [facility] Bilirubin [Mass/Vol] 0.40 mg/dL 0.20-1.00 [facility] Comment on above: For patients on eltr ombopag therapy, use of Dimension [place] TBIL is not recommended. Chloride [Moles/Vol] 107 mmol/L 98-107 [facility] Eosinophils/100 WBC (Bld) 1.9 % 0-5 [facility] Glucose [Mass/Vol] 286 mg/dL 74-106 [facility] Comment on above: Glucose result great er than or equal to 200 mg/dLsuggests DIABETES MELLITUS per A.D.A. criteria. Neutrophils (Bld) [#/Vol] 6.9 10*3/uL 2.0-7.7 [facility] Neutrophils/100 WBC (Bld) 69.7 % 47-70 [facility] Potassium [Moles/Vol] 3.7 mmol/L 3.5-5.1 [facility] Protein [Mass/Vol] 7.2 g/dL 6.4-8.2 [facility] Sodium [Moles/Vol] 139 mmol/L 136-145 [facility] WBC (Bld) [#/Vol] 9.8 10*3/uL 4.4-11.0 [facility] Blood erythrocytes count (nu mber/volume)Ordered By: Eliazar Amos on 05-11-2023 RBC (Bld) [#/Vol] 4.21 10*6/uL 4.2-5.4 [facility] Blood hemoglobin measurement (mass/volume)Ordered By: Eliazar Amos on 05-11-2023 Hemoglobin (Bld) [Mass/Vol] 14.1 g/dL 12.0-15.0 [facility] Blood lymphocytes/100 leukoc ytesOrdered By: Eliazar Amos on 05-11-2023 Lymphocytes/100 WBC (Bld) 23.7 % 19-41 [facility] Blood monocytes/100 leukocyt esOrdered By: Eliazar Amos on 05-11-2023 Monocytes/100 WBC (Bld) 4.1 % 0-10 [facility] Blood platelet mean volumeOr dered By: Eliazar Amos on 05-11-2023 Platelet mean volume (Bld) [Entitic vol] 9.3 fL 6.2-12.0 [facility] Determination of erythrocyte mean corpuscular volume (MCV)Ordered By: Eliazar Amos on 05-11-2023 MCV (RBC) [Entitic vol] 98.8 fL 81-99 [facility] Hematocrit Auto (Bld) [Volum e fraction]Ordered By: erniejunction citysharon Amos on 05-11-2023 Hematocrit (Bld) [Volume fraction] 41.6 % 37-47 [facility] Laboratory - Chemistry and C hemistry - challengeOrdered By: [facility] Eduardcyn on 05-11-2023 ALP [Catalytic activity/Vol] 66 U/L 45-117 [facility] ALT [Catalytic activity/Vol] 32 U/L 13-56 [facility] CO2 [Moles/Vol] 26.0 mmol/L 21.0-32.0 [facility] Globulin (S) [Mass/Vol] 3.8 g/dL 2.2-4.2 [facility] Urea nitrogen/Creatinine [Mass ratio] 14.8 mg/mg 10-20 [facility] Laboratory - Hematology and Cell countsOrdered By: erniejunction citysharon Amos on 05-11-2023 Erythrocyte distribution width (RBC) [Entitic vol] 42.1 fL 35.1-43.9 [facility] Erythrocyte distribution width (RBC) [Ratio] 11.7 % 11.6-14.6 [facility] Immature granulocytes/100 WBC (Bld) 0.200 % 0.0-0.9 [facility] Comment on above: IG% - Immature Granu locytes (promyelocytes, myelocytes and metamyelocytes) > 1% indicates that a LEFT SHIFT is Present. MCH (RBC) [Entitic mass] 33.5 pg 27.0-32.0 [facility] Nucleated RBC/100 W[facility] (Bld) [[facility]] 0 % [facility] [Mass/Vol]Or dered By: Eliazar Amos on 05-11-2023 MCHC (RBC) [Mass/Vol] 33.9 g/dL 32-36 [facility] No Panel InformationOrdered By: Eliazar Amos on 05-11-2023 Estimated GFR (MDRD) Amer 111 mL/min >60 [facility] Comment on above: GFR Calc Estimated GFR (MDRD) Non-Af Amer 92 mL/min >60 [facility] Comment on above: Non- GFR Calc Platelets bldOrdered By: Minh Amos on 05-11-2023 Platelets (Bld) [#/Vol] 290 10*3/uL 150-450 [facility] Serum or plasma albumin jalyn urement (mass/volume)Ordered By: Eliazar Amos on 05-11-2023 Albumin [Mass/Vol] 3.4 g/dL 3.2-5.0 [facility] Serum or plasma albumin/glob ulin mass ratioOrdered By: Eliazar Amos on 05-11-2023 Albumin/Globulin [Mass ratio] 0.9 {ratio} 0.9-2.4 [facility] Serum or plasma calcium jalyn urement (mass/volume)Ordered By: Eliazar Amos on 05-11-2023 Calcium [Mass/Vol] 9.1 mg/dL 8.5-10.1 [facility] Serum or plasma creatinine m easurement (mass/volume)Ordered By: Eliazar Amos on 05-11-2023 Creatinine [Mass/Vol] 0.81 mg/dL 0.55-1.02 [facility] Comment on above: The validity of the calculated GFR & GFRAA in patients over 70 years has not been determined. Clinical correlation is essential. Serum or plasma urea nitroge n measurement (mass/volume)Ordered By: Eliazar Amos on 05-11-2023 Urea nitrogen [Mass/Vol] 12 mg/dL 7-18 [facility] Thin prep Papanicolaou smear with manual screeningOrdered By: Eliazar Amos on 05-11-2023 Thin prep Papanicolaou smear with manual screening 16 U/L 15-37 [facility] Thin prep Papanicolaou smear with manual screening 6 5-15 [facility] Laboratory - Hematology and Cell countson 05-03-2023 HbA1c (Bld) [Mass fraction] 11.9 % 4.2-6.3 [facility] ALBUMIN/CREAT RATIO RND URon 04-06-2023 Albumin DL <= 20 mg/L (U) [Mass/Vol] [facility] Albumin/Creatinine (U) [Mass ratio] <30 mg/g [facility] Creatinine (U) [Mass/Vol] 128.4 mg/dL 20.0 - 300.0 mg/dL [facility] LIPID PANEL, NONFASTINGon Cholesterol [Mass/Vol] 184 mg/dL <200 mg/dL [facility] HDL Cholesterol, Nonfasting 36 mg/dL Low >39 mg/dL [facility] LDL Cholesterol, Nonfasting 106 mg/dL High <100 mg/dL [facility] LDL/HDL Ratio, Nonfasting 2.94 mg/dL High <2.54 mg/dL [facility] Non HDL Cholesterol, Nonfasting 148 mg/dL High <130 mg/dL [facility] Total Chol/HDL Ratio, Nonfasting 5.11 mg/dL High <5.10 mg/dL [facility] Triglycerides, Nonfasting 210 mg/dL High <150 mg/dL [facility] VLDL Cholesterol, Nonfasting 42 mg/dL High <30 mg/dL [facility] T4 FREE/FREE THYROXon 2022 Free T4 [Mass/Vol] 1.0 ng/dL 0.9 - 1.7 ng/dL [facility] TSH BLDon 04-06-2023 TSH Qn 0.777 m[IU]/L 0.270 - 4.200 mIU/L [facility] Comprehensive metabolic 2000 panelon 04-05-2023 Albumin [Mass/Vol] 4.1 g/dL 3.9 - 4.9 g/dL [facility] ALP [Catalytic activity/Vol] 72 U/L 34 - 123 U/L [facility] ALT [Catalytic activity/Vol] 30 U/L 7 - 38 U/L [facility] Anion gap [Moles/Vol] 13 mmol/L 9 - 18 mmol/L [facility] AST [Catalytic activity/Vol] 21 U/L 13 - 35 U/L [facility] Bilirubin [Mass/Vol] 0.2 mg/dL 0.2 - 1 .3 mg/dL [facility] Calcium [Mass/Vol] 9.6 mg/dL 8.5 - 10. 2 mg/dL [facility] Chloride [Moles/Vol] 102 mmol/L 97 - 10 5 mmol/L [facility] CO2 [Moles/Vol] 24 mmol/L 22 - 30 mmol/L [facility] Creatinine [Mass/Vol] 0.60 mg/dL 0.58 - 0.96 mg/dL [facility] Estimated Glomerular Filtration Rate 129 mL/min/1.73m >=60 mL/min/1.73 m [facility] Glucose [Mass/Vol] 235 mg/dL High 74 - 99 mg/dL [facility] Potassium [Moles/Vol] 3.8 mmol/L 3.7 - 5.1 mmol/L [facility] Protein [Mass/Vol] 6.9 g/dL 6.3 - 8.0 g/dL [facility] Sodium [Moles/Vol] 139 mmol/L 136 - 144 mmol/L [facility] Urea nitrogen [Mass/Vol] 14 mg/dL 7 - 21 mg/dL [facility] HbA1c (Bld)on 04-05-2023 Average glucose Estimated from glycated hemoglobin (Bld) [Mass/Vol] 266 mg/dL [facility] HbA1c (Bld) [Mass fraction] 10.9 % High 4.3 - 5.6 % [facility] THYROID PEROXIDASE ANTIBODY BLOODon 04-05-2023 TPO Ab Qn 5.2 [IU]/mL <5.6 IU/mL [facility] US PELVIS NON-OB W/TRANSVAGI NALon 03-22-2023 [...] Sign Date: 03/22/2023 12:39:27 PM Ordering Provider: MARINETRUNG BACON [facility] Patient Coordinator Cytology Reporton 2022 Patient Coordinator Cytology Report . Pathology Reports Accession: Collected Date/Time: Received Date/Time: Pathologist: [id number] 03/13/2023 11:09 EDT 03/13/2023 18:00 EDT TORREY WADE MD Patient Coordinator Cytology Report SPECIMEN: Specimen Description: Liquid Prep [...] and evaluated with the assistance of the [employer] ThinPrep Test Imaging System. Pathology Reports Accession: Collected Date/Time: Received Date/Time: Pathologist: [id number] 03/13/2023 11:09 EDT 03/13/2023 18:00 EDT TORREY WADE MD Electronically Signed by Pathology report verified by [facility] Screened by: ADIN DW Electronically signed by TORREY WADE Sign-Out Date: 03/21/2023 13:21 Performing Lab: [facility], [address] [place] [address] Pathology Dept Disclaimer The Pap test is a screening test for cervical cancer. As evidenced by published data, it is subject to both inherent false negative and false positive results. Your patient's results should be interpreted in context with pertinent clinical history including gynecological examination. Normal [facility] ([place]) HPVon 03-20-2023 HPV Interp Normal See Interp HPVN [facility] ([place]) Comment on above: Order Comment: Order placed by AP_HPV_ORDER rule from [id number] Result Comment: High Risk HPV Typing: NEGATIVE [...] and sufficient DNA to be detected. See Interp HPVN Performed By: #### H PV ####[facility] [place] [address] HPV Source Cervix Normal [facility] ([place]) Comment on above: Order Comment: Order placed by AP_HPV_ORDER rule from [id number] Performed By: #### H PV ####[facility] [place] [address] Basophil percentageOrdered B y: Saulo Lacy on 03-16-2023 Bilirubin [Mass/Vol] 0.60 mg/dL 0.20-1.00 [facility] Comment on above: For patients on eltr ombopag therapy, use of Dimension [place] TBIL is not recommended. Chloride [Moles/Vol] 104 mmol/L 98-107 [facility] Glucose [Mass/Vol] 291 mg/dL 74-106 [facility] Comment on above: Glucose result great er than or equal to 200 mg/dLsuggests DIABETES MELLITUS per A.D.A. criteria. Potassium [Moles/Vol] 4.0 mmol/L 3.5-5.1 [facility] Protein [Mass/Vol] 7.6 g/dL 6.4-8.2 [facility] Sodium [Moles/Vol] 137 mmol/L 136-145 [facility] WBC (Bld) [#/Vol] 9.5 10*3/uL 4.4-11.0 [facility] Creatinine [Mass/Vol] 0.9 mg/dL 0.55-1.02 [facility] Blood erythrocytes count (nu mber/volume)Ordered By: Saulo Lacy on 03-16-2023 RBC (Bld) [#/Vol] 4.36 10*6/uL 4.2-5.4 [facility] Blood hemoglobin measurement (mass/volume)Ordered By: Saulo Lacy on 03-16-2023 Hemoglobin (Bld) [Mass/Vol] 15.2 g/dL 12.0-15.0 [facility] Blood platelet mean volumeOr dered By: Saulo Lacy on 03-16-2023 Platelet mean volume (Bld) [Entitic vol] 9.4 fL 6.2-12.0 [facility] Determination of erythrocyte mean corpuscular volume (MCV)Ordered By: Saulo Lacy on 03-16-2023 MCV (RBC) [Entitic vol] 98.2 fL 81-99 [facility] Hematocrit Auto (Bld) [Volum e fraction]Ordered By: Saulo Lacy on 03-16-2023 Hematocrit (Bld) [Volume fraction] 42.8 % 37-47 [facility] Laboratory - Chemistry and C hemistry - challengeOrdered By: Saulo Lacy on 03-16-2023 ALP [Catalytic activity/Vol] 74 U/L 45-117 [facility] ALT [Catalytic activity/Vol] 46 U/L 13-56 [facility] CO2 [Moles/Vol] 27.0 mmol/L 21.0-32.0 [facility] Cobalamin (Vitamin B12) [Mass/Vol] 380 pg/mL 211-911 [facility] Free T4 [Mass/Vol] 0.99 ng/dL 0.76-1.46 [facility] Globulin (S) [Mass/Vol] 3.8 g/dL 2.2-4.2 [facility] Urea nitrogen/Creatinine [Mass ratio] 13.5 mg/mg 10-20 [facility] Laboratory - Hematology and Cell countsOrdered By: Saulo Lacy on 03-16-2023 Erythrocyte distribution width (RBC) [Entitic vol] 43.1 fL 35.1-43.9 [facility] Erythrocyte distribution width (RBC) [Ratio] 11.9 % 11.6-14.6 [facility] MCH (RBC) [Entitic mass] 34.9 pg 27.0-32.0 [facility] MCHC Auto (RBC) [Mass/Vol]Or dered By: Saulo Lacy on 03-16-2023 MCHC (RBC) [Mass/Vol] 35.5 g/dL 32-36 [facility] No Panel InformationOrdered By: Saulo Lacy on 03-16-2023 Estimated GFR (MDRD) Amer 101 mL/min >60 [facility] Comment on above: GFR Calc Estimated GFR (MDRD) Non-Af Amer 83 mL/min >60 [facility] Comment on above: Non- GFR Calc Thyroid Stimulating Hormone (TSH) 1.45 uIU/mL 0.358-3.74 [facility] Whole Blood Vitamin B1 Level 143.8 nmol/L 66.5-200.0 [facility] Comment on above: Performed at: [employer] [facility] [address] [id number] Director: Tim Altamirano MD, Phone: [phone] Bedside Estimated GFR (eGFR) > 60.0000 mL/min >60 [facility] Platelets bldOrdered By: Solo Lacy on 03-16-2023 Platelets (Bld) [#/Vol] 295 10*3/uL 150-450 [facility] Serum or plasma albumin jalyn urement (mass/volume)Ordered By: Saulo Lacy on 03-16-2023 Albumin [Mass/Vol] 3.8 g/dL 3.2-5.0 [facility] Serum or plasma albumin/glob ulin mass ratioOrdered By: Saulo Lacy on 03-16-2023 Albumin/Globulin [Mass ratio] 1.0 {ratio} 0.9-2.4 [facility] Serum or plasma calcitriol m easurement (mass/volume)Ordered By: Saulo Lacy on 03-16-2023 1,25-dihydroxyvitamin D3 [Mass/Vol] 49.1 pg/mL 24.8-81.5 [facility] Comment on above: Performed at: [facility] [address] [id number] Director: Tim Altamirano MD, Phone: [phone] Serum or plasma calcium jalyn urement (mass/volume)Ordered By: Saulo Lacy on 03-16-2023 Calcium [Mass/Vol] 9.3 mg/dL 8.5-10.1 [facility] Serum or plasma creatinine m easurement (mass/volume)Ordered By: Saulo Lacy on 03-16-2023 Creatinine [Mass/Vol] 0.89 mg/dL 0.55-1.02 [facility] Comment on above: The validity of the calculated GFR & GFRAA in patients over 70 years has not been determined. Clinical correlation is essential. Serum or plasma folate measu rement (mass/volume)Ordered By: Saulo Lacy on 03-16-2023 Folate [Mass/Vol] 19.50 ng/mL 3.1-55.4 [facility] Serum or plasma urea nitroge n measurement (mass/volume)Ordered By: Saulo Recinosdonna on 03-16-2023 Urea nitrogen [Mass/Vol] 12 mg/dL 7-18 [facility] Thin prep Papanicolaou smear with manual screeningOrdered By: Saulo Oscar on 03-16-2023 Thin prep Papanicolaou smear with manual screening 17 U/L 15-37 [facility] Thin prep Papanicolaou smear with manual screening 6 5-15 [facility] CTPCRon 03-14-2023 C. trachomatis Interp Normal See CT Interp N [facility] ([place]) Comment on above: Result Comment: C. t rachomatis DNA not detected. Specimen is presumptive negative for C. trachomatis. A negative result does not preclude C. trachomatis infection because results depend on adequate specimen collection, absence of inhibitors, and sufficient DNA to be detected. See CT Interp N Performed By: #### N GPCR1, CTPCR #### [address] [address] C.trachomatis PCR Negative Normal Negative [facility] ([place]) Comment on above: Result Comment: Mole cular (PCR) assay performed on the [employer] 4800 system. Performed By: #### N GPCR1, CTPCR #### [address] [address] Chlam Source Urine Normal [facility] ([place]) Comment on above: Performed By: #### N GPCR1, CTPCR #### [address] [address] [id number] 03-14-2023 GC PCR Source Urine Normal [facility] ([place]) Comment on above: Performed By: #### N GPCR1, CTPCR #### [address] [address] N. gonorrhoeae (PCR) Negative Normal Negative [facility] ([place]) Comment on above: Result Comment: Mole cular (PCR) assay performed on the [employer] 4800 System. Performed By: #### N GPCR1, CTPCR #### [facility] [address] [place], [place] [address] N. gonorrhoeae Interp Normal See NG Interp N [facility] ([place]) Comment on above: Result Comment: N. g onorrhoeae DNA not detected. Specimen is presumptive negative for N. gonorrhoeae. A negative result does not preclude Neisseria gonorrhoeae infection because results depend on adequate specimen collection, absence of inhibitors, and sufficient DNA to be detected. See NG Interp N Performed By: #### N GPCR1, CTPCR #### [facility] [address] [place] [id number] LABORATORYOrdered By: Clarisse Parker on 03-13-2023 C. trachomatis DNA GREYSON+probe Ql (Unsp spec) Negative (03/13/23 11:09 AM) Invalid Interpretation Code Negative Auto Viro/Sero SS C. trachomatis DNA GREYSON+probe [...] or 2. Interpretative criteria are not available. [facility] Work Phone: XR KNEE THREE VIEWS [...] 12/09/2022 11:57:33 PM Ordering Provider: [facility]) T4on 12-08-2022 T4 [Mass/Vol] 8.1 ug/dL [facility] 4[facility]5-10.9 [facility] Comment on above: Result Comment: No te - New Reference Range in effect 20 Performed By: #### M DW, TSH, CBC, GFR, BMP, ADIFF, ANEU ####[facility] [place], [place] [address]#### T4 ####[address] [address] .Auto Diffon 12-07-2022 Basophil, Absolute 0.0 10 3/mcL Normal 0.0-0.2 [facility]) Comment on above: Performed By: #### M DW, TSH, CBC, GFR, BMP, ADIFF, ANEU #### [place] [address] #### T4 #### [address] [address] Basophils/100 WBC (Bld) 0.5 % Normal 0.0-2.5 A [facility] ([place]) Comment on above: Performed By: #### M DW, TSH, CBC, GFR, BMP, ADIFF, ANEU #### [place] [address] #### T4 #### [address] [address] Eosinophil, Absolute 0.1 10 3/mcL Normal 0.0-0.4 [facility] ([place]) Comment on above: Performed By: #### M DW, TSH, CBC, GFR, BMP, ADIFF, ANEU #### [place] [address] #### T4 #### [address] [address] Eosinophils/100 WBC (Bld) 1.0 % Normal 0.0-7.0 [facility] ([place]) Comment on above: Performed By: #### M DW, TSH, CBC, GFR, BMP, ADIFF, ANEU #### [place] [address] #### T4 #### [address] [address] Lymphocyte, Absolute 2.7 10 3/mcL Normal 0.8-3.9 [facility] ([place]) Comment on above: Performed By: #### M DW, TSH, CBC, GFR, BMP, ADIFF, ANEU #### [place] [address] #### T4 #### [address] [address] Lymphocytes/100 WBC (Bld) 33.6 % Normal 10.0-50.0 [facility] ([place]) Comment on above: Performed By: #### M DW, TSH, CBC, GFR, BMP, ADIFF, ANEU #### [address] [address] #### T4 #### [address] [address] Monocyte, Absolute 0.3 10 3/mcL Normal 0.2-1.0 [facility] ([place]) Comment on above: Performed By: #### M DW, TSH, CBC, GFR, BMP, ADIFF, ANEU #### [address] [address] #### T4 #### [address] [address] Monocytes/100 WBC (Bld) 3.6 % Normal 1.7-13.0 A [facility] ([place]) Comment on above: Performed By: #### M DW, TSH, CBC, GFR, BMP, ADIFF, ANEU #### [address] [address] #### T4 #### [address] [address] Neutrophils/100 WBC (Bld) 61.3 % Normal 37.0-80.0 [facility] ([place]) Comment on above: Performed By: #### M DW, TSH, CBC, GFR, BMP, ADIFF, ANEU #### [address] [address] #### T4 #### [address] [address] .GFRon 12-07-2022 GFR 100 ml/min/1.73sqm Normal [facility] ([place]) Comment on above: Result Comment: GFR [...] DW, TSH, CBC, GFR, BMP, ADIFF, ANEU ####[place] [address] [address]#### T4 ####[place] [address] GFR Non- 83 ml/min/1.73sqm Normal [facility] ([place]) Comment on above: Result Comment: GFR Population [...] DW, TSH, CBC, GFR, BMP, ADIFF, ANEU ####[place] [id number]#### T4 ####[place] [address] .MDWon 12-07-2022 Monocyte Distribution Width 15.40 Normal 0.00-20.00 [facility] ([place]) Comment on above: Result Comment: For ED adult patients suspected of sepsis, MDW<=20.0 does not rule out sepsis or risk of sepsis Performed By: #### M DW, TSH, CBC, GFR, BMP, ADIFF, ANEU #### [address] [address] #### T4 #### [place] [address] .NEUABSon 12-07-2022 Neutrophil, Absolute 4.9 10 3/mcL Normal 2.9-6.2 [facility] ([place]) Comment on above: Performed By: #### M DW, TSH, CBC, GFR, BMP, ADIFF, ANEU #### [address] [address] #### T4 #### [address] [address] BMPon 12-07-2022 BUN/Creatinine Ratio 12 ratio Normal 7-27 [facility] ([place]) Comment on above: Performed By: #### M DW, TSH, CBC, GFR, BMP, ADIFF, ANEU #### [address] [address] #### T4 #### [address] [address] Calcium [Mass/Vol] 9.2 mg/dL Normal 8.4-10.2 [facility] ([place]) Comment on above: Performed By: #### M DW, TSH, CBC, GFR, BMP, ADIFF, ANEU #### [address] [address] #### T4 #### [address] [address] Chloride [Moles/Vol] 103 mmol/L Normal 98-107 [facility] ([place]) Comment on above: Performed By: #### M DW, TSH, CBC, GFR, BMP, ADIFF, ANEU #### [place] [address] #### T4 #### [address] [address] CO2 [Moles/Vol] 28 mmol/L Normal 22-29 [facility] ([place]) Comment on above: Performed By: #### M DW, TSH, CBC, GFR, BMP, ADIFF, ANEU #### [address] [address] #### T4 #### [address] [address] Creatinine [Mass/Vol] 0.85 mg/dL Normal 0.55-1.02 [facility] ([place]) Comment on above: Performed By: #### M DW, TSH, CBC, GFR, BMP, ADIFF, ANEU #### [address] [address] #### T4 #### [address] [address] Electrolyte Balance 9.0 mEq/L Normal 4.0-15.0 [facility] ([place]) Comment on above: Performed By: #### M DW, TSH, CBC, GFR, BMP, ADIFF, ANEU #### [address] [address] #### T4 #### [address] [address] Glucose [Mass/Vol] 216 mg/dL High 70-105 [facility] ([place]) Comment on above: Performed By: #### M DW, TSH, CBC, GFR, BMP, ADIFF, ANEU #### [place] [address] #### T4 #### [address] [address] Potassium [Moles/Vol] 4.2 mmol/L Normal 3.5-5.1 [facility] ([place]) Comment on above: Performed By: #### M DW, TSH, CBC, GFR, BMP, ADIFF, ANEU #### [address] [address] #### T4 #### [address] [address] Sodium [Moles/Vol] 140 mmol/L Normal 136-145 [facility] ([place]) Comment on above: Performed By: #### M DW, TSH, CBC, GFR, BMP, ADIFF, ANEU #### [address] [address] #### T4 #### [address] [address] Urea nitrogen [Mass/Vol] 10 mg/dL Normal 7-18 [facility] ([place]) Comment on above: Performed By: #### M DW, TSH, CBC, GFR, BMP, ADIFF, ANEU #### [place] [address] #### T4 #### [place] [address] CBCon 12-07-2022 Erythrocyte distribution width (RBC) [Ratio] 13.0 % Normal 11.5-14.5 [facility] ([place]) Comment on above: Performed By: #### M DW, TSH, CBC, GFR, BMP, ADIFF, ANEU #### [place] [address] #### T4 #### [place] [address] Hematocrit (Bld) [Volume fraction] 41.1 % Normal 37.0-47.0 [facility] ([place]) Comment on above: Performed By: #### M DW, TSH, CBC, GFR, BMP, ADIFF, ANEU #### [place] [address] #### T4 #### [place] [address] Hgb 14.2 G/dL Normal 12.0-16.0 [facility] ([place]) Comment on above: Performed By: #### M DW, TSH, CBC, GFR, BMP, ADIFF, ANEU #### [place] [address] #### T4 #### [place] [address] MCH (RBC) [Entitic mass] 33.8 pg High 27.0-31.2 [facility] ([place]) Comment on above: Performed By: #### M DW, TSH, CBC, GFR, BMP, ADIFF, ANEU #### [place] [address] #### T4 #### [place] [address] MCHC 34.6 G/dL Normal 33.0-37.0 [facility] ([place]) Comment on above: Performed By: #### M DW, TSH, CBC, GFR, BMP, ADIFF, ANEU #### [place] [address] #### T4 #### [place] [address] MCV (RBC) [Entitic vol] 97.6 fL High 80.0-94.0 A [facility] ([place]) Comment on above: Performed By: #### M DW, TSH, CBC, GFR, BMP, ADIFF, ANEU #### [place] [address] #### T4 #### [place] [address] Platelet 281 10 3/mcL Normal 130-400 [facility] ([place]) Comment on above: Performed By: #### M DW, TSH, CBC, GFR, BMP, ADIFF, ANEU #### [place] [address] #### T4 #### [place] [address] Platelet mean volume (Bld) [Entitic vol] 6.9 fL Low 7.4-10.4 [facility] ([place]) Comment on above: Performed By: #### M DW, TSH, CBC, GFR, BMP, ADIFF, ANEU #### [place] [address] #### T4 #### [place] [address] RBC 4.21 10 6/mcL Normal 4.20-5.40 [facility] ([place]) Comment on above: Performed By: #### M DW, TSH, CBC, GFR, BMP, ADIFF, ANEU #### [place] [address] #### T4 #### [place] [address] WBC 7.9 10 3/mcL Normal 4.6-10.8 [facility] ([place]) Comment on above: Performed By: #### M DW, TSH, CBC, GFR, BMP, ADIFF, ANEU #### [place] [address] [place], [place] [address] #### T4 #### [place] [address] LABORATORYOrdered By: Brandon Walden on 12-07-2022 Basophil, [...] Invalid Interpretation Code 70 - 110 mg/dL [facility] Work Phone: TSHon 12-07-2022 TSH Qn 1.27 m[IU]/L Normal 0.36-3.74 [facility] ([place]) Comment on above: Performed By: #### M DW, TSH, CBC, GFR, BMP, ADIFF, ANEU #### [facility] [address] [place], [place] [address] #### T4 #### [address] [address] XR CHEST 2 VIEWSon 3 XR CHEST [...] 12/07/2022 1:47:20 PM Ordering Provider: NAYELY Alvarado [facility] ([place]) XR NECK SOFT TISSUEon 2022 XR NECK [...] 12/07/2022 1:36:44 PM Ordering Provider: NAYELY Alvarado [facility] ([place]) Absolute lymphocyte counton 08-12-2022 Lymphocytes Auto (Unsp spec) [#/Vol] 2.19 10*3/uL 0.83-4.51 [facility] Work Phone: Basophil percentageon 2021 Basophils/100 WBC (Bld) 0.2 % 0-1 [facility] Work Phone: Chloride [Moles/Vol] 109 mmol/L 98-107 [facility] Work Phone: Eosinophils/100 WBC (Bld) 0.7 % 0-5 [facility] Work Phone: Glucose [Mass/Vol] 187 mg/dL 74-106 [facility] Work Phone: Comment on above: Fasting Glucose resu lt greater than or equal to 126 mg/dL suggests DIABETES MELLITUS per A.D.A. criteria. Neutrophils (Bld) [#/Vol] 6.8 10*3/uL 2.0-7.7 [facility] Work Phone: Neutrophils/100 WBC (Bld) 71.7 % 47-70 [facility] Work Phone: Potassium [Moles/Vol] 3.6 mmol/L 3.5-5.1 [facility] Work Phone: Sodium [Moles/Vol] 141 mmol/L 136-145 [facility] Work Phone: WBC (Bld) [#/Vol] 9.5 10*3/uL 4.4-11.0 [facility] Work Phone: Blood erythrocytes count (nu mber/volume)on 08-12-2022 RBC (Bld) [#/Vol] 4.29 10*6/uL 4.2-5.4 [facility] Work Phone: Blood hemoglobin measurement (mass/volume)on 08-12-2022 Hemoglobin (Bld) [Mass/Vol] 14.1 g/dL 12.0-15.0 [facility] Work Phone: Blood lymphocytes/100 leukoc yteson 08-12-2022 Lymphocytes/100 WBC (Bld) 23.0 % 19-41 [facility] Work Phone: Blood monocytes/100 leukocyt eson 08-12-2022 Monocytes/100 WBC (Bld) 4.0 % 0-10 [facility] Work Phone: Blood platelet mean volumeon 08-12-2022 Platelet mean volume (Bld) [Entitic vol] 8.9 fL 6.2-12.0 [facility] Work Phone: Determination of erythrocyte mean corpuscular volume (MCV)on 08-12-2022 MCV (RBC) [Entitic vol] 98.8 fL 81-99 [facility] Work Phone: Glucose Glucometer (BldC) [M ass/Vol]on 08-12-2022 Glucose [Mass/Vol] 186 mg/dL 74-106 [facility] Work Phone: Comment on above: MANAGEMENT OF PATIEN T CARE PER NURSING PROTOCOL Hematocrit Auto (Bld) [Volum e fraction]on 08-12-2022 Hematocrit (Bld) [Volume fraction] 42.4 % 37-47 [facility] Work Phone: Laboratory - Chemistry and C hemistry - challengeon 08-12-2022 CO2 [Moles/Vol] 29.0 mmol/L 21.0-32.0 [facility] Work Phone: Urea nitrogen/Creatinine [Mass ratio] 13.3 mg/mg 10-20 [facility] Work Phone: [phone] Laboratory - Hematology and Cell countson 08-12-2022 Erythrocyte distribution width (RBC) [Entitic vol] 44.1 fL 35.1-43.9 [facility] Work Phone: [phone] Erythrocyte distribution width (RBC) [Ratio] 12.1 % 11.6-14.6 [facility] Work Phone: [phone] Immature granulocytes/100 WBC (Bld) 0.400 % 0.0-0.9 [facility] Work Phone: [phone] Comment on above: IG% - Immature Granu locytes (promyelocytes, myelocytes and metamyelocytes) > 1% indicates that a LEFT SHIFT is Present. MCH (RBC) [Entitic mass] 32.9 pg 27.0-32.0 [facility] Work Phone: Nucleated RBC/100 WBC (Bld) [Ratio] 0 % 0-5 [facility] Work Phone: [phone] MCHC Auto (RBC) [Mass/Vol]on 08-12-2022 MCHC (RBC) [Mass/Vol] 33.3 g/dL 32-36 [facility] Work Phone: [phone] No Panel Informationon 08-12 Estimated Creatinine Clearance Calc 117.82 ml/min [facility] Work Phone: [phone] Estimated GFR (MDRD) Amer 110 mL/min >60 [facility] Work Phone: [phone] Comment on above: GFR Calc Estimated GFR (MDRD) Non-Af Amer 91 mL/min >60 [facility] Work Phone: Comment on above: Non- GFR Calc Troponin I High Sensitivity 5 pg/mL 3.0-54.0 [facility] Work Phone: [phone] Comment on above: Please Note: New Emy t Units and Gender Specific Reference Ranges. For more information see Policy Stat Procedure [place] High Sensitivity Troponin (TNIH) and attachments. Platelets bldon 08-12-2022 Platelets (Bld) [#/Vol] 264 10*3/uL 150-450 [facility] Work Phone: Serum or plasma calcium jalyn urement (mass/volume)on 08-12-2022 Calcium [Mass/Vol] 9.5 mg/dL 8.5-10.1 [facility] Work Phone: Serum or plasma creatinine m easurement (mass/volume)on 08-12-2022 Creatinine [Mass/Vol] 0.83 mg/dL 0.55-1.02 [facility] Work Phone: Comment on above: The validity of the calculated GFR & GFRAA in patients over 70 years has not been determined. Clinical correlation is essential. Serum or plasma urea nitroge n measurement (mass/volume)on 08-12-2022 Urea nitrogen [Mass/Vol] 11 mg/dL 7-18 [facility] Work Phone: Thin prep Papanicolaou smear with manual screeningon 08-12-2022 Thin prep Papanicolaou smear with manual screening 3 5-15 [facility] Work Phone: Absolute lymphocyte counton 06-15-2022 Lymphocytes Auto (Unsp spec) [#/Vol] 3.02 10*3/uL 0.83-4.51 [facility] Work Phone: Basophil percentageon 2021 Basophils/100 WBC (Bld) 0.3 % 0-1 [facility] Work Phone: [phone] Bilirubin [Mass/Vol] 0.40 mg/dL 0.20-1.00 [facility] Work Phone: [phone] Comment on above: For patients on eltr ombopag therapy, use of Dimension [place] TBIL is not recommended. Chloride [Moles/Vol] 108 mmol/L 98-107 [facility] Work Phone: Cholesterol [Mass/Vol] 183 mg/dL <200 [facility] Work Phone: Comment on above: <200 mg/dL Desirable 200-240 mg/dL Borderline >240 mg/dL High Risk Eosinophils/100 WBC (Bld) 0.9 % 0-5 [facility] Work Phone: Glucose [Mass/Vol] 130 mg/dL 74-106 [facility] Work Phone: Comment on above: Fasting Glucose resu lt greater than or equal to 126 mg/dL suggests DIABETES MELLITUS per A.D.A. criteria. Neutrophils (Bld) [#/Vol] 6.7 10*3/uL 2.0-7.7 [facility] Work Phone: Neutrophils/100 WBC (Bld) 65.3 % 47-70 [facility] Work Phone: Potassium [Moles/Vol] 3.9 mmol/L 3.5-5.1 [facility] Work Phone: [phone] Protein [Mass/Vol] 7.7 g/dL 6.4-8.2 [facility] Work Phone: [phone] Sodium [Moles/Vol] 140 mmol/L 136-145 [facility] Work Phone: [phone] Triglyceride [Mass/Vol] 100 mg/dL <199 [facility] Work Phone: Comment on above: The drugs N-Acetylcy steine and Metamizole may falsely depress this assay.Serum Triglycerides Reference Interval Normal <150 mg/dL Borderline high 150 - 199 mg/dL High 200 - 499 mg/dL Very High > or = 500 mg/dL WBC (Bld) [#/Vol] 10.2 10*3/uL 4.4-11.0 [facility] Work Phone: Blood erythrocytes count (nu mber/volume)on 06-15-2022 RBC (Bld) [#/Vol] 4.28 10*6/uL 4.2-5.4 [facility] Work Phone: [phone] Blood hemoglobin measurement (mass/volume)on 06-15-2022 Hemoglobin (Bld) [Mass/Vol] 14.3 g/dL 12.0-15.0 [facility] Work Phone: Blood lymphocytes/100 leukoc yteson 10-12-2022 Lymphocytes/100 WBC (Bld) 29.7 % 19-41 [facility] Work Phone: Blood monocytes/100 leukocyt eson 06-15-2022 Monocytes/100 WBC (Bld) 3.4 % 0-10 [facility] Work Phone: Blood platelet mean volumeon 06-15-2022 Platelet mean volume (Bld) [Entitic vol] 9.0 fL 6.2-12.0 [facility] Work Phone: Determination of erythrocyte mean corpuscular volume (MCV)on 06-15-2022 MCV (RBC) [Entitic vol] 98.6 fL 81-99 [facility] Work Phone: Hematocrit Auto (Bld) [Volum e fraction]on 06-15-2022 Hematocrit (Bld) [Volume fraction] 42.2 % 37-47 [facility] Work Phone: Laboratory - Chemistry and C hemistry - challengeon 06-15-2022 ALP [Catalytic activity/Vol] 58 U/L 45-117 [facility] Work Phone: ALT [Catalytic activity/Vol] 31 U/L 13-56 [facility] Work Phone: CO2 [Moles/Vol] 27.0 mmol/L 21.0-32.0 [facility] Work Phone: Free T4 [Mass/Vol] 1.00 ng/dL 0.76-1.46 [facility] Work [facility]: Globulin (S) [Mass/Vol] 3.9 g/dL 2.2-4.2 [facility] Work Phone: Urea nitrogen/Creatinine [Mass ratio] 15.2 mg/mg 10-20 [facility] Work Phone: Laboratory - Hematology and Cell countson 06-15-2022 Erythrocyte distribution width (RBC) [Entitic vol] 42.6 fL 35.1-43.9 [facility] Work Phone: Erythrocyte distribution width (RBC) [Ratio] 11.9 % 11.6-14.6 [facility] Work Phone: Immature granulocytes/100 WBC (Bld) 0.400 % 0.0-0.9 [facility] Work Phone: Comment on above: IG% - Immature Granu locytes (promyelocytes, myelocytes and metamyelocytes) > 1% indicates that a LEFT SHIFT is Present. MCH (RBC) [Entitic mass] 33.4 pg 27.0-32.0 [facility] Work Phone: Nucleated RBC/100 WBC (Bld) [Ratio] 0 % 0-5 [facility] Work Phone: [phone] MCHC Auto (RBC) [Mass/Vol]on 06-15-2022 MCHC (RBC) [Mass/Vol] 33.9 g/dL 32-36 [facility] Work Phone: No Panel Informationon 06-15 Estimated GFR (MDRD) Amer 97 mL/min >60 [facility] Work Phone: Comment on above: GFR Calc Estimated GFR (MDRD) Non-Af Amer 80 mL/min >60 [facility] Work Phone: Comment on above: Non- GFR Calc Thyroid Stimulating Hormone (TSH) 1.66 uIU/mL 0.358-3.74 [facility] Work Phone: Platelets bldon 06-15-2022 Platelets (Bld) [#/Vol] 319 10*3/uL 150-450 [facility] Work Phone: [phone] Serum or plasma albumin jalyn urement (mass/volume)on 06-15-2022 Albumin [Mass/Vol] 3.8 g/dL 3.2-5.0 [facility] Work Phone: [phone] Serum or plasma albumin/glob ulin mass ratioon 06-15-2022 Albumin/Globulin [Mass ratio] 1.0 {ratio} 0.9-2.4 [facility] Work Phone: [phone] Serum or plasma calcium jalyn urement (mass/volume)on 06-15-2022 Calcium [Mass/Vol] 9.4 mg/dL 8.5-10.1 [facility] Work Phone: Serum or plasma cholesterol in HDL measurement (mass/volume)on 06-15-2022 Cholesterol in HDL [Mass/Vol] 38 mg/dL >40 [facility] Work Phone: Comment on above: The drugs N-Acetylcy steine and Metamizole may falsely depress this assay. Reference Range HDL <40 mg/dL Low HDL Cholesterol HDL >or= 60 mg/dL High HDL Cholesterol Serum or plasma cholesterol in VLDL measurement (mass/volume)on 06-15-2022 Cholesterol in VLDL [Mass/Vol] 20 mg/dL 5-40 [facility] Work Phone: [phone] Serum or plasma creatinine m easurement (mass/volume)on 06-15-2022 Creatinine [Mass/Vol] 0.92 mg/dL 0.55-1.02 [facility] Work Phone: Comment on above: The validity of the calculated GFR & GFRAA in patients over 70 years has not been determined. Clinical correlation is essential. Serum or plasma low density lipoprotein (LDL) cholesterol measurement (mass/volume)on 06-15-2022 Cholesterol in LDL [Mass/Vol] 125 mg/dL 0-130 [facility] Work Phone: Serum or plasma urea nitroge n measurement (mass/volume)on 06-15-2022 Urea nitrogen [Mass/Vol] 14 mg/dL 7-18 [facility] Work Phone: [phone] Thin prep Papanicolaou smear with manual screeningon 06-15-2022 Thin prep Papanicolaou smear with manual screening 16 U/L 15-37 [facility] Work Phone: [phone] Thin prep Papanicolaou smear with manual screening 5 5-15 [facility] Work Phone: Whole blood hemoglobin A1c/t otal hemoglobin ratio (mass fraction)on 06-15-2022 HbA1c (Bld) [Mass fraction] 6.1 % 3.8-5.6 [facility] Work Phone: Comment on above: Normal < 5.7 % Predi abetic 5.7 - 6.4 % Diabetic >or= 6.5 % Please note range changes. Laboratory - Hematology and Cell countson 06-07-2022 HbA1c (Bld) [Mass fraction] 5.7 % 4.2-6.3 [facility] Work Phone: Laboratory - Drug toxicology on 11-17-2021 Amphetamines Ql (U) Negative [facility] Work Phone: Benzodiazepines Ql (U) Negative [facility] Work Phone: Cannabinoids Screen Ql (U) Positive [facility] Work Phone: Cocaine Ql (U) Negative [facility] Work Phone: Opiates Ql (U) Negative [facility] Work Phone: No Panel Informationon 11-17 MDMA (Ecstasy) Screen Negative [facility] Work Phone: Urine Barbiturates Screen Negative [facility] Work Phone: Urine Drug Screen Comment [facility] Work Phone: Comment on above: CONFIRMATORY [...] USE TESTMNEMONIC: [facility] Urine Methadone Screen Negative [facility] Work Phone: Urine phencyclidine (PCP) de tectionon 11-17-2021 Phencyclidine Ql (U) Negative [facility] Work Phone: ALLIED HEALTHon 02-21-2021 [facility] HNO ID: [id number] Author: Chaplain Jennifer Service: ? Author Type: [employer] Type: Allied Health Filed: 02/21/2021 6:30 PM Note Text: SPIRITUALCARE Spiritual Care Visit- Brief Note Name: Sugey West Date: February 21, 2021 Notes: Dis-charge Patient in need of clothing. [employer] delivered T shirt [employer] Signature: Chaplain Jennifer To contact the Spiritual Care Department: Please call [phone] or Page the On-Call [employer] at pager [phone] Thank you for the opportunity to be of service. This is an electronically created document. IF PRINTED, PLEASE DO NOT REMOVE FROM THE CHART OR MODIFY PRINTED COPY. [facility] HNO ID: [id number] Author: RT Alicia(Edgardo) Service: ? Author Type: Lead Android Developer Type: Allied Health Filed: 02/21/2021 3:52 PM [...] RT Alicia(R) February 21, 2021 3:51 PM [facility] HNO ID: [id number] Author: RT Gifty(R) Service: Radiology Author Type: Lead Android Developer Type: Allied Health Filed: 02/21/2021 1:56 AM Note Text: [...] RT Gifty(R) February 21, 2021 1:56 AM Normal [facility] HNO ID: [id number] Author: Chaplain Brenda Service: Spiritual Care Author Type: [employer] Type: Allied Health Filed: 02/21/2021 12:00 PM Note Text: SPIRITUAL CARE PROGRESS NOTE SERVICE DATE: 02/21/2021 SERVICE TIME: 1:32 am [employer] resp'd to trauma alert per [facility] protocol. Patient is being serviced by multiple caregivers. [employer] met with aunt of patient in family room and introduced Spiritual Care department along with follow-up. Aunt grateful as physician updated on patient's status. [employer] escorted aunt to bedside and informed unit that another relative was en route. [employer] on standby if needed further. To contact the Spiritual Care Department: Please call [phone] SIGNATURE: Chaplain Brenda PATIENT NAME: Sugey West DATE: February 21, 2021 TIME: 11:56 AM PAGER/CONTACT #: [phone] Normal [facility] CBC panel Auto (Bld)on 02-21 Erythrocyte distribution width (RBC) [Ratio] 13.2 % Normal 11.5-15.0 [facility] Comment on above: Order Comment: Speci men Type: BLOOD SPECIMEN Performed By: #### 5 [id number] ####[facility] LABORATORYCLIA [id number] [place] [address] Hematocrit (Bld) [Volume fraction] 44.7 % Normal 36.0-46.0 [facility] Comment on above: Order Comment: Speci men Type: BLOOD SPECIMEN Performed By: #### 5 8410-2 ####[facility] LABORATORYCLIA [id number] [place] [address] Hemoglobin (Bld) [Mass/Vol] 15.5 g/dL Normal 11.5-15.5 [facility] Comment on above: Order Comment: Speci men Type: BLOOD SPECIMEN Performed By: #### 5 8410-2 ####[facility] LABORATORYCLIA [id number] [place] [address] MCH (RBC) [Entitic mass] 32.2 pg Normal 26.0-34.0 [facility] Comment on above: Order Comment: Speci men Type: BLOOD SPECIMEN Performed By: #### 5 8410-2 ####[facility] LABORATORYCLIA [id number] [place] [address] MCHC (RBC) [Mass/Vol] 34.7 g/dL Normal 30.5-36.0 [facility] Comment on above: Order Comment: Speci men Type: BLOOD SPECIMEN Performed By: #### 5 8410-2 ####[facility] LABORATORYCLIA [id number] [place] [address] MCV (RBC) [Entitic vol] 92.9 fL Normal 80.0-100.0 [facility] Comment on above: Order Comment: Speci men Type: BLOOD SPECIMEN Performed By: #### 5 8410-2 ####[facility] LABORATORYCLIA [id number] [place] [address] Nucleated RBC (Bld) [#/Vol] 10*3/uL Normal <0.01 [facility] Comment on above: Order Comment: Speci men Type: BLOOD SPECIMEN Performed By: #### 5 8410-2 ####[facility] LABORATORYCLIA [id number] [place] [address] Platelet mean volume (Bld) [Entitic vol] 10.4 fL Normal 9.0-12.7 [facility] Comment on above: Order Comment: Speci men Type: BLOOD SPECIMEN Performed By: #### 5 8410-2 ####[facility] LABORATORYCLIA [id number] [place] [address] Platelets (Bld) [#/Vol] 268 10*3/uL Normal 150-400 [facility] Comment on above: Order Comment: Speci men Type: BLOOD SPECIMEN Performed By: #### 5 8410-2 ####[facility] LABORATORYCLIA [id number] [place] [address] RBC (Bld) [#/Vol] 4.81 10*6/uL Normal 3.90-5.20 [facility] Comment on above: Order Comment: Speci men Type: BLOOD SPECIMEN Performed By: #### 5 8410-2 ####[facility] LABORATORYCLIA [id number] [place] [address] WBC (Bld) [#/Vol] 11.25 10*3/uL High 3.70-11.00 [facility] Comment on above: Order Comment: Speci men Type: BLOOD SPECIMEN Performed By: #### 5 8410-2 ####[facility] LABORATORYCLIA [id number] [place] [address] CNDSon 02-21-2021 CNDS HNO ID: [id number] Author: Antonia Norris MD Service: General Surgery [...] Surgery February 21, 2021 8:54 PM Normal [facility] CT ABD/PEL W IVCONon 021 CT ABD/PEL W IVCON * * *Final Report* * * DATE OF EXAM: Feb 21 2021 2:26AM [facility] 0530 - CT ABD/PEL W IVCON / [...] Automated exposure control(AEC) and iterative recon RESULT: MEDICATION COORDINATOR: Unremarkable. THORAX: Motion degrades exam. Within the [...] spine. Details and incidental findings as discussed. Park Landscape Architect: PSCB Transcribe Date/Time: Feb 21 2021 2:40A Dictated by : GEORGE VYAS MD This examination was interpreted and the report reviewed and electronically signed by: GEORGE VYAS MD on Feb 21 2021 2:50AM EST [id number] Normal [facility] CT BRAIN WO IVCONon 02-22-20 CT BRAIN WO IVCON * * *Final Report* * * DATE OF EXAM: Feb 21 2021 2:14AM [facility] 0504 - CT BRAIN WO IVCON / [...] the patient is able to voluntarily cooperate. Park Landscape Architect: ROSIE Transcribe Date/Time: Feb 21 2021 2:18A Dictated by : GEORGE VYAS MD This examination was interpreted and the report reviewed and electronically signed by: GEORGE VYAS MD on Feb 21 2021 2:20AM EST [id number] Normal [facility] CT CERVICAL SPINE WO IVCONon 02-21-2021 CT CERVICAL SPINE WO IVCON * * *Final Report* * * DATE OF EXAM: Feb 21 2021 2:14AM [facility] 0505 - CT CERVICAL SPINE WO IVCON [...] Counting reference: Craniocervical junction. Anatomic Variants: None. Warehouse Distribution Associate (topogram) images: Alignment: Alignment is anatomic. Craniocervical [...] vertebrae with counting from the craniocervical junction. Park Landscape Architect: ROSIE Transcribe Date/Time: Feb 21 2021 2:21A Dictated by : GEORGE VYAS MD This examination was interpreted and the report reviewed and electronically signed by: GEORGE VYAS MD on Feb 21 2021 2:28AM EST [id number] Normal [facility] CT CHEST W IVCONon 1 CT CHEST W IVCON * * *Final Report* * * DATE OF EXAM: Feb 21 2021 2:26AM [facility] 0539 - CT CHEST W IVCON / [...] Automated exposure control(AEC) and iterative recon RESULT: MEDICATION COORDINATOR: Unremarkable. THORAX: Motion degrades exam. Within the [...] spine. Details and incidental findings as discussed. Park Landscape Architect: PSCB Transcribe Date/Time: Feb 21 2021 2:40A Dictated by : GEORGE VYAS MD This examination was interpreted and the report reviewed and electronically signed by: GEORGE VYAS MD on Feb 21 2021 2:50AM EST [id number] Normal [facility] CT FACIAL BONE/BRIAN WO IVCON on 02-21-2021 CT FACIAL BONE/BRIAN WO IVCON * * *Final Report* * * DATE OF EXAM: Feb 21 2021 2:14AM [facility] 0507 - CT FACIAL BONE/BRIAN WO IVCON [...] Reduction Employed: Iterative recon COMPARISON: None. RESULT: Warehouse Distribution Associate (topogram) images: No additional findings. Soft Tissues: [...] in the left nasal cavity and nasopharynx. Park Landscape Architect: ROSIE Transcribe Date/Time: Feb 21 2021 2:30A Dictated by : MATTIE FRYE MD This examination was interpreted and the report reviewed and electronically signed by: MATTIE FRYE MD on Feb 21 2021 2:47AM EST [id number] Normal [facility] CT LUMBAR SPINE W RECON DATA -NBon 02-21-2021 CT LUMBAR SPINE W RECON DATA -NB * * *Final Report* * * DATE OF EXAM: Feb 21 2021 2:26AM [facility] 0481 - CT LUMBAR SPINE W RECON [...] Automated exposure control(AEC) and iterative recon RESULT: MEDICATION COORDINATOR: Unremarkable. THORAX: Motion degrades exam. Within the [...] spine. Details and incidental findings as discussed. Park Landscape Architect: ROSIE Transcribe Date/Time: Feb 21 2021 2:40A Dictated by : GEORGE VYAS MD This examination was interpreted and the report reviewed and electronically signed by: GEORGE VYAS MD on Feb 21 2021 2:50AM EST [id number] Normal [facility] CT T-SPINE W RECON DATA -NBo n 02-21-2021 CT T-SPINE W RECON DATA -NB * * *Final Report* * * DATE OF EXAM: Feb 21 2021 2:26AM [facility] 0485 - CT T-SPINE W RECON DATA [...] Automated exposure control(AEC) and iterative recon RESULT: MEDICATION COORDINATOR: Unremarkable. THORAX: Motion degrades exam. Within the [...] spine. Details and incidental findings as discussed. Park Landscape Architect: ROSIE Transcribe Date/Time: Feb 21 2021 2:40A Dictated by : GEORGE VYAS MD This examination was interpreted and the report reviewed and electronically signed by: GEORGE VYAS MD on Feb 21 2021 2:50AM EST [id number] Normal [facility] Comprehensive metabolic 2000 panelon 02-21-2021 Albumin [Mass/Vol] 3.9 g/dL Normal 3.9-4.9 [facility] Comment on above: Order Comment: Speci men Type: BLOOD SPECIMEN Performed By: #### 2 4323-8 ####[facility] LABORATORYCLIA [id number] [place] [address] ALP [Catalytic activity/Vol] 76 U/L Normal 34-123 [facility] Comment on above: Order Comment: Speci men Type: BLOOD SPECIMEN Performed By: #### 2 4323-8 ####[facility]ORATORYCLIA [id number] [place] [address] ALT With P-5'-P [Catalytic activity/Vol] Normal [facility] Comment on above: Order Comment: Speci men Type: BLOOD SPECIMEN Result Comment: Unab le to assay due to interference from hemolysis. Suggest reorder as clinically indicated. Performed By: #### 2 4323-8 ####[facility]ORATORYCLIA [id number] [place] [address] Anion gap [Moles/Vol] 16 mmol/L Normal 9-18 [facility] Comment on above: Order Comment: Speci men Type: BLOOD SPECIMEN Performed By: #### 2 4323-8 ####[facility]ORATORYCLIA [id number] [place] [address] AST With P-5'-P [Catalytic activity/Vol] Normal [facility] Comment on above: Order Comment: Speci men Type: BLOOD SPECIMEN Result Comment: Unab le to assay due to interference from hemolysis. Suggest reorder as clinically indicated. Performed By: #### 2 4323-8 ####[facility]ORATORYCLIA [id number] [place] [address] Bilirubin [Mass/Vol] 0.2 mg/dL Normal 0.2-1.3 [facility] Comment on above: Order Comment: Speci men Type: BLOOD SPECIMEN Performed By: #### 2 4323-8 ####[facility]ORATORYCLIA [id number] [place] [address] Calcium [Mass/Vol] 8.9 mg/dL Normal 8.5-10.2 [facility] Comment on above: Order Comment: Speci men Type: BLOOD SPECIMEN Performed By: #### 2 4323-8 ####[facility]ORATORYCLIA [id number] [place] [address] Chloride [Moles/Vol] 102 mmol/L Normal 97-105 [facility] Comment on above: Order Comment: Speci men Type: BLOOD SPECIMEN Performed By: #### 2 4323-8 ####[facility] LABORATORYCLIA [id number] [place] [address] CO2 [Moles/Vol] 18 mmol/L Low 22-30 [facility] Comment on above: Order Comment: Speci men Type: BLOOD SPECIMEN Performed By: #### 2 4323-8 ####[facility] LABORATORYCLIA [id number] [place] [address] Creatinine [Mass/Vol] 0.50 mg/dL Low 0.58-0.96 [facility] Comment on above: Order Comment: Speci men Type: BLOOD SPECIMEN Performed By: #### 2 4323-8 ####[facility] LABORATORYCLIA [id number] [place] [address] GFR/1.73 sq M.predicted MDRD (S/P/Bld) [Vol rate/Area] mL/min/{1.73_m2} Normal [facility] Comment on above: Order Comment: Speci [...] actual GFR. Performed By: #### 2 4323-8 ####[facility] LABORATORYCLIA [id number] [place] [address] Glucose [Mass/Vol] 319 mg/dL High 74-99 [facility] Comment on above: Order Comment: [facility] Type: BLOOD SPECIMEN Result Comment: The [place] [employer] (ADA) provides guidance for cutoff [...] Standards of Medical Care in Diabetes 2016, [place] [employer]. Diabetes Care. 2016.39(Suppl 1). Performed By: #### 2 4323-8 ####[facility] LABORATORYCLIA [id number] [place] [address] Potassium [Moles/Vol] 4.3 mmol/L Normal 3.7-5.1 [facility] Comment on above: Order Comment: Speci men Type: BLOOD SPECIMEN Performed By: #### 2 4323-8 ####[facility] LABORATORYCLIA [id number] [place] [address] Protein [Mass/Vol] 6.6 g/dL Normal 6.3-8.0 [facility] Comment on above: Order Comment: Speci men Type: BLOOD SPECIMEN Performed By: #### 2 4323-8 ####[facility] LABORATORYCLIA [id number] [place] [address] Sodium [Moles/Vol] 136 mmol/L Normal 136-144 [facility] Comment on above: Order Comment: Speci men Type: BLOOD SPECIMEN Performed By: #### 2 4323-8 ####[facility] LABORATORYCLIA [id number] [place] [address] Urea nitrogen [Mass/Vol] 5 mg/dL Low 7-21 [facility] Comment on above: Order Comment: Speci men Type: BLOOD SPECIMEN Performed By: #### 2 4323-8 ####[facility] LABORATORYCLIA [id number] [place] [address] ED NOTEon 02-21-2021 ED NOTE HNO ID: [id number] Author: Radha Newberry RN Service: ? Author Type: Registered Nurse Type: ED Notes Filed: 02/21/2021 2:28 AM Note Text: 5mg haldol given now, verbal order per Dr Chang Alvarado [facility] ED NOTE HNO ID: [id number] Author: Antonia Gunn Service: ? Author Type: ? Type: ED Notes Filed: 02/21/2021 1:31 AM Note Text: Bed: 03-ED Expected date: 02/21/21 Expected time: 1:24 AM Means of arrival: Nathanael SHAH Comments: Normal [facility] ED PROV NOTEon 02-21-2021 ED PROV NOTE HNO ID: [id number] Author: Antonia Downing MD Service: Emergency Medicine [...] laboratory APTT reagent in use throughout the [facility]. ALCOHOL/ETHANOL BLD COMP METABOLIC PANEL TOX SCREEN ROUT UR TYPE AND SCREEN EXPEDITED COVID19 Procedures ED Course / Clinical Impression ED Course as of Feb 21 0641 Antonia Downing's Documentation [place] Feb 21, 2021 0453 Attending Note I evaluated the patient and [...] Antonia Clancy (more content not included)... Normal [facility] HISTORY PHYSICALon HISTORY PHYSICAL HNO ID: [id number] Author: Moni Ram DO Service: General Surgery [...] Rafael Vines MD Delayed entry TRAUMA SURGERY [facility]P [facility] ARRIVAL DATE: February 21, 2021 ARRIVAL TIME: 01:24 CATEGORY: Level 2 INJURY DATE: February 21, 2021 INJURY TIME: HAND LAUNDERER Subjective 20 year old female presents to [...] CRASHES: Type of Crash: unknown speed Impact: Cnc Router Operator Restraints/Helmets: Unknown BRIEF DESCRIPTION OF INJURIES: [...] Motor: 5=Purposeful (more content not included)... Normal [facility] Lipase SerPl-cCncon 02-22-20 Lipase [Catalytic activity/Vol] 36 U/L Normal 16-61 [facility] Comment on above: Order Comment: Speci men Type: BLOOD SPECIMEN Performed By: #### 3 040-3 ####[facility] LABORATORYCLIA [id number] [place] [address] PT panel Coag (PPP)on 2020 INR Coag (PPP) [Relative time] 1.0 {INR} Normal 0.9-1.3 [facility] Comment on above: Order Comment: Speci men Type: BLOOD SPECIMEN Result Comment: Vandana min K Antagonist (VKA) Therapeutic Range: INR 2 to 3 (Target INR of 2.5) Note: For patients treated with VKA drugs, such as warfarin, the [place] [employer] 2012 Guideline recommends [...] Chest 2012, 141:7S-47S Zee RA, et al. [facility] 2017, 70: 252-289 Performed By: #### 3 4528-0, 25423-0 ####[facility] LABORATORYCLIA [id number] [place] [address] PT Coag (PPP) [Time] 10.4 s Normal 9.7-13.0 [facility] Comment on above: Order Comment: Speci men Type: BLOOD SPECIMEN Performed By: #### 3 4528-0, 08387-3 ####[facility] LABORATORYCLIA [id number] [place] [address] SARS-CoV-2 RNA Resp Ql GREYSON+p robeon 02-21-2021 SARS-CoV-2 (COVID-19) RNA GREYSON+probe Ql (Resp) COVID 19 RESULT: SARS-CoV-2 (Agent of COVID-19) Not Detected by PCR. This test has been authorized by FDA under an Emergency Use Authorization (EUA) [facility] Comment on above: Performed By: #### 9 4500-6 ####[facility] LABORATORYCLIA [id number] [place] [address] TOX SCREEN ROUT URon 021 Amphetamines Confirm (U) [Mass/Vol] Negative Normal Negative [facility] Comment on above: Order Comment: Speci men Type: URINE SPECIMEN Result Comment: Cuto ff threshold at 1000 ng/mL. Performed By: #### U TOX2 ####[facility]ORATORYCLIA [id number] [place] [address] BARBITURATES, URINE Negative Normal Negative [facility] Comment on above: Order Comment: Speci men Type: URINE SPECIMEN Result Comment: Cuto ff threshold at 200 ng/mL. Performed By: #### U TOX2 ####[facility] LABORATORYCLIA [id number] [place] [address] BENZODIAZEPINES, UR Positive Abnormal Negative [facility] Comment on above: Order Comment: Speci men Type: URINE SPECIMEN Result Comment: Cuto ff threshold at 200 ng/mL. Performed By: #### U TOX2 ####[facility] LABORATORYCLIA [id number] [place] [address] CANNABINOIDS,URINE Negative Normal Negative [facility] Comment on above: Order Comment: Speci men Type: URINE SPECIMEN Result Comment: Cuto ff threshold at 50 ng/mL. Performed By: #### U TOX2 ####[facility] LABORATORYCLIA [id number] [place] [address] Cocaine Ql (U) Negative Normal Negative [facility] Comment on above: Order Comment: Speci men Type: URINE SPECIMEN Result Comment: Cuto ff threshold at 300 ng/mL. Performed By: #### U TOX2 ####[facility]ORATORYCLIA [id number] [place] [address] Ethanol (U) [Mass/Vol] 96 mg/dL High <11 [facility] Comment on above: Order Comment: Speci men Type: URINE SPECIMEN Performed By: #### U TOX2 ####[facility]ORATORYCLIA [id number] [place] [address] Opiates Screen Ql (U) Negative Normal Negative [facility] Comment on above: Order Comment: Speci men Type: URINE SPECIMEN Result Comment: Cuto ff threshold at 300 ng/mL. Performed By: #### U TOX2 ####[facility] LABORATORYCLIA [id number] [place] [address] oxyCODONE cutoff Screen (U) [Mass/Vol] Negative Normal Negative [facility] Comment on above: Order Comment: Speci men Type: URINE SPECIMEN Result Comment: Cuto ff threshold at 100 ng/mL. Performed By: #### U TOX2 ####[facility] LABORATORYCLIA [id number] [place] [address] Phencyclidine Ql (U) Negative Normal Negative [facility] Comment on above: Order Comment: Speci men Type: URINE SPECIMEN Result Comment: Cuto ff threshold at 25 ng/mL. Performed By: #### U TOX2 ####[facility]ORATORYCLIA [id number] [place] [address] TYPE AND SCREENon 02-21-2021 ABO B Normal [facility] Comment on above: Order Comment: Speci men Type: BLOOD SPECIMEN Performed By: #### T SCR #### [facility] CLIA [id number] [address] [place] [address] HISTORICAL AB SCR STATUS Negative Normal [facility] Comment on above: Order Comment: Speci men Type: BLOOD SPECIMEN Performed By: #### T SCR #### [facility] CLIA [id number] [address] [place] [address] Rh Nom (Bld) Positive Normal [facility] Comment on above: Order Comment: Speci men Type: BLOOD SPECIMEN Performed By: #### T SCR #### [facility] CLIA [id number] [address] [place] [address] TYPE AND SCREEN EXPIRATION 02/24/2021 23:59 Normal [facility] Comment on above: Order Comment: Speci men Type: BLOOD SPECIMEN Performed By: #### T SCR #### [facility] CLIA [id number] [address] [place] [address] XR CHEST 1V FRONTALon 2020 XR CHEST [...] normal limits. Other: No acute bony abnormality. Park Landscape Architect: Novawise Transcribe Date/Time: Feb 21 2021 1:57A Dictated by : GEORGE VYAS MD This examination was interpreted and the report reviewed and electronically signed by: GEORGE VYAS MD on Feb 21 2021 1:57AM EST [id number] Normal [facility] XR CHEST 2V FRONTAL/LATon XR CHEST [...] soft tissues: Unremarkable. IMPRESSION: Lungs appear clear. Park Landscape Architect: Novawise Transcribe Date/Time: Feb 21 2021 3:55P Dictated by : CLEO ROLLINS MD This examination was interpreted and the report reviewed and electronically signed by: CLEO ROLLINS MD on Feb 21 2021 3:57PM EST [id number] Normal [facility] XR PELVIS 1V APon 02-21-2021 XR [...] dislocation. IMPRESSION: No acute pelvic fracture identified. Park Landscape Architect: PSCB Transcribe Date/Time: Feb 21 2021 1:56A Dictated by : ROMI MONTES MD This examination was interpreted and the report reviewed and electronically signed by: ROMI MONTES MD on Feb 21 2021 1:57AM EST [id number] Normal [facility] aPTT PPPon 02-21-2021 aPTT Coag (PPP) [Time] 25.3 s Normal 23.0-32.4 [facility] Comment on above: Order Comment: Speci men Type: BLOOD SPECIMEN Performed By: #### 3 4528-0, 36363-5 ####[facility]ORATORYCLIA [id number] [place] [address] Influenza virus A and B and SARS-CoV-2 (COVID-19) Ag panel - Upper respiratory specim SARS-CoV-2 (COVID-19) RNA GREYSON+probe Ql (Resp) [facility] Work Phone: Vital Signs Date Time Vital Sign Value Performing Clinician Facility 05-30-2025 02:05-0400 Body temperature 98.2 [degF] Dr. Eliazar Amos MD Work Phone: [facility] 05-30-2025 02:05-0400 Diastolic blood pressure 78 mm[Hg] Dr. Eliazar Amos MD Work Phone: [facility] 05-30-2025 02:05-0400 Heart rate 66 /min Dr. Eliazar Amos MD Work Phone: [facility] 05-30-2025 02:05-0400 Respiratory rate 18 /min Dr. Eliazar Amos MD Work Phone: [facility] 05-30-2025 02:05-0400 SaO2% (BldA) [Mass fraction] 95 % Dr. Eliazar Amos MD Work Phone: [facility] 05-30-2025 02:05-0400 Systolic blood pressure 126 mm[Hg] Dr. Eliazar Amos MD Work Phone: [facility] 05-30-2025 00:04-0400 Body height 180.[address] Eliazar Amos MD Work Phone: [facility] 05-16-2025 14:53-0400 Body temperature 98.3 [degF] Dr. Eliazar Amos MD Work Phone: [facility] 05-16-2025 14:53-0400 Diastolic blood pressure 80 mm[Hg] Dr. Eliazar Amos MD Work Phone: [facility] 05-16-2025 14:53-0400 Heart rate 70 /min Dr. Eliazar Amos MD Work Phone: [facility] 05-16-2025 14:53-0400 Respiratory rate 16 /min Dr. Eliazar Amos MD Work Phone: [facility] 05-16-2025 14:53-0400 SaO2% (BldA) [Mass fraction] 98 % Dr. Eliazar Amos MD Work Phone: [facility] 05-16-2025 14:53-0400 Systolic blood pressure 132 mm[Hg] Dr. Eliazar Amos MD Work Phone: [facility] 05-16-2025 12:14-0400 Body height 180.[address] Eliazar Amos MD Work Phone: [facility] 05-16-2025 12:14-0400 Body mass index (BMI) [Ratio] 42.7 kg/m2 Dr. Eliazar Amos MD Work Phone: [facility] 05-16-2025 12:14-0400 Body weight 139.[address] Eliazar mAos MD Work Phone: [facility] 05-07-2025 14:37-0400 Body height 180.3 cm Paige Cioce WOOL MIXER.TIMBER TRIMMER Work Phone: [facility] 05-07-2025 14:37-0400 Body mass index (BMI) [Ratio] 41.56 kg/m2 Paige Cioce WOOL MIXER.TIMBER TRIMMER Work Phone: [facility] 05-07-2025 14:37-0400 Body temperature 97.39 [degF] Paige Cioce WOOL MIXER.TIMBER TRIMMER Work Phone: [facility] 05-07-2025 14:37-0400 Body weight 135.17 kg Paige Cioce WOOL MIXER.TIMBER TRIMMER Work Phone: [facility] 05-07-2025 14:37-0400 Diastolic blood pressure 86 mm[Hg] Paige Cioce WOOL MIXER.TIMBER TRIMMER Work Phone: [facility] 05-07-2025 14:37-0400 Heart rate 74 /min Paige Cioce WOOL MIXER.TIMBER TRIMMER Work Phone: [facility] 05-07-2025 14:37-0400 Respiratory rate 14 /min Paige Cioce WOOL MIXER.TIMBER TRIMMER Work Phone: [facility] 05-07-2025 14:37-0400 SaO2% (BldA) [Mass fraction] 97 % Paige Cioce WOOL MIXER.TIMBER TRIMMER Work Phone: [facility] 05-07-2025 14:37-0400 Systolic blood pressure 108 mm[Hg] Paige Cioce WOOL MIXER.TIMBER TRIMMER Work Phone: [facility] 05-02-2025 09:54-0400 Body height 180.[address] Eliazar Amos MD Work Phone: [facility] 05-02-2025 09:54-0400 Body mass index (BMI) [Ratio] 41.5 kg/m2 Dr. Eliazar Amos MD Work Phone: [facility] 05-02-2025 09:54-0400 Body temperature 97 [degF] Dr. Eliazar Amos MD Work Phone: [facility] 05-02-2025 09:54-0400 Body weight 135.[address] Eliazar Amos MD Work Phone: [facility] 05-02-2025 09:54-0400 Diastolic blood pressure 82 mm[Hg] Dr. Eliazar Amos MD Work Phone: [facility] 05-02-2025 09:54-0400 Heart rate 72 /min Dr. Eliazar Amos MD Work Phone: [facility] 05-02-2025 09:54-0400 Respiratory rate 16 /min Dr. Eliazar Amos MD Work Phone: [facility] 05-02-2025 09:54-0400 SaO2% (BldA) [Mass fraction] 97 % Dr. Eliazar Amos MD Work Phone: [facility] 05-02-2025 09:54-0400 Systolic blood pressure 128 mm[Hg] Dr. Eliazar Amos MD Work Phone: [facility] 04-08-2025 23:35-0400 Body temperature 98 [degF] Dr. Eliazar Amos MD Work Phone: [facility] 04-08-2025 23:35-0400 Diastolic blood pressure 88 mm[Hg] Dr. Eliazar Amos MD Work Phone: [facility] 04-08-2025 23:35-0400 Heart rate 92 /min Dr. Eliazar Amos MD Work Phone: [facility] 04-08-2025 23:35-0400 Respiratory rate 18 /min Dr. Eliazar Amos MD Work Phone: [facility] 04-08-2025 23:35-0400 SaO2% (BldA) [Mass fraction] 98 % Dr. Eliazar Amos MD Work Phone: [facility] 04-08-2025 23:35-0400 Systolic blood pressure 144 mm[Hg] Dr. Eliazar Amos MD Work Phone: [facility] 04-08-2025 23:14-0400 Body height 180.[address] Eliazar Amos MD Work Phone: [facility] 04-08-2025 23:14-0400 Body mass index (BMI) [Ratio] 41.5 kg/m2 Dr. Eliazar Amos MD Work Phone: [facility] 04-08-2025 23:14-0400 Body weight 134.[address] Eliazar Amos MD Work Phone: [facility] 03-20-2025 18:09-0400 Body height 180.[address] Eliazar Amos MD Work Phone: [facility] 03-20-2025 18:09-0400 Body mass index (BMI) [Ratio] 42.1 kg/m2 Dr. Eliazar Amos MD Work Phone: [facility] 03-20-2025 18:09-0400 Body temperature 96.1 [degF] Dr. Eliazar Amos MD Work Phone: [facility] 03-20-2025 18:09-0400 Body weight 137.[address] Eliazar Amos MD Work Phone: [facility] 03-20-2025 18:09-0400 Diastolic blood pressure 88 mm[Hg] Dr. Eliazar Amos MD Work Phone: [facility] 03-20-2025 18:09-0400 Heart rate 78 /min Dr. Eliazar Amos MD Work Phone: [facility] 03-20-2025 18:09-0400 Respiratory rate 16 /min Dr. Eliazar Amos MD Work Phone: [facility] 03-20-2025 18:09-0400 SaO2% (BldA) [Mass fraction] 98 % Dr. Eliazar Amos MD Work Phone: [facility] 03-20-2025 18:09-0400 Systolic blood pressure 136 mm[Hg] Dr. Eliazar Amos MD Work Phone: [facility] 03-18-2025 12:30-0400 Body temperature 98.4 [degF] Dr. Eliazar Amos MD Work Phone: [facility] 03-18-2025 12:30-0400 Diastolic blood pressure 93 mm[Hg] Dr. Eliazar Amos MD Work Phone: [facility] 03-18-2025 12:30-0400 Heart rate 77 /min Dr. Eliazar Amos MD Work Phone: [facility] 03-18-2025 12:30-0400 Respiratory rate 16 /min Dr. Eliazar Amos MD Work Phone: [facility] 03-18-2025 12:30-0400 SaO2% (BldA) [Mass fraction] 98 % Dr. Eliazar Amos MD Work Phone: [facility] 03-18-2025 12:30-0400 Systolic blood pressure 121 mm[Hg] Dr. Eliazar Amos MD Work Phone: [facility] 03-18-2025 11:01-0400 Body height 180.[address] Eliazar Amos MD Work Phone: [facility] 03-18-2025 11:01-0400 Body mass index (BMI) [Ratio] 42.3 kg/m2 Dr. Eliazar Amos MD Work Phone: [facility] 03-18-2025 11:01-0400 Body weight 137.[address] Eliazar Amos MD Work Phone: [facility] 01-17-2025 22:05-0400 Body temperature 98.1 [degF] Dr. Eliazar Amos MD Work Phone: [facility] 01-17-2025 22:05-0400 Diastolic blood pressure 95 mm[Hg] Dr. Eliazar Amos MD Work Phone: [facility] 01-17-2025 22:05-0400 Heart rate 81 /min Dr. Eliazar Amos MD Work Phone: [facility] 01-17-2025 22:05-0400 Respiratory rate 23 /min Dr. Eliazar Amos MD Work Phone: [facility] 01-17-2025 22:05-0400 SaO2% (BldA) [Mass fraction] 95 % Dr. Eliazar Amos MD Work Phone: [facility] 01-17-2025 22:05-0400 Systolic blood pressure 129 mm[Hg] Dr. Eliazar Amos MD Work Phone: [facility] 01-17-2025 20:44-0400 Body height 180.[address] Eliazar Amos MD Work Phone: [facility] 01-17-2025 20:44-0400 Body mass index (BMI) [Ratio] 42.9 kg/m2 Dr. Eliazar Amos MD Work Phone: [facility] 01-17-2025 20:44-0400 Body weight 139.[address] Eliazar Amos MD Work Phone: [facility] 01-01-2025 08:34-0400 Body mass index (BMI) [Ratio] 42.26 kg/m2 Paige Cioce [employer] Work Phone: [facility] 01-01-2025 08:34-0400 Body weight 137.44 kg Paige Cioce [employer] Work Phone: [facility] 01-01-2025 08:34-0400 Diastolic blood pressure 85 mm[Hg] Paige Cioce [employer] Work Phone: [facility] 01-01-2025 08:34-0400 Heart rate 81 /min Paige Cioce [employer] Work Phone: [facility] 01-01-2025 08:34-0400 SaO2% (BldA) [Mass fraction] 97 % Paige Cioce [employer] Work Phone: [facility] 01-01-2025 08:34-0400 Systolic blood pressure 123 mm[Hg] Paige Cioce [employer] Work Phone: [facility] 11-15-2024 10:36-0400 Body height 180.[address] Eliazar Amos MD Work Phone: [facility] 11-15-2024 10:36-0400 Body mass index (BMI) [Ratio] 43.6 kg/m2 Dr. Elaizar Amos MD Work Phone: [facility] 11-15-2024 10:36-0400 Body temperature 97.7 [degF] Dr. Eliazar Amos MD Work Phone: [facility] 11-15-2024 10:36-0400 Body weight 141.[address] Eliazar Amos MD Work Phone: [facility] 11-15-2024 10:36-0400 Diastolic blood pressure 94 mm[Hg] Dr. Eliazar Amos MD Work Phone: [facility] 11-15-2024 10:36-0400 Heart rate 85 /min Dr. Eliazar Amos MD Work Phone: [facility] 11-15-2024 10:36-0400 Respiratory rate 16 /min Dr. Eliazar Amos MD Work Phone: [facility] 11-15-2024 10:36-0400 SaO2% (BldA) [Mass fraction] 97 % Dr. Eliazar Amos MD Work Phone: [facility] 11-15-2024 10:36-0400 Systolic blood pressure 136 mm[Hg] Dr. Eliazar Amos MD Work Phone: [facility] 11-06-2024 15:38-0500 Body mass index (BMI) [Ratio] 42.8 kg/m2 Dr. Eliazar Amos MD Work Phone: [facility] 11-06-2024 15:38-0500 Body temperature 98.5 [degF] Dr. Eliazar Amos MD Work Phone: [facility] 11-06-2024 15:38-0500 Body weight 139.[address] Eliazar Amos MD Work Phone: [facility] 11-06-2024 15:38-0500 Diastolic blood pressure 89 mm[Hg] Dr. Eliazar Amos MD Work Phone: [facility] 11-06-2024 15:38-0500 Heart rate 74 /min Dr. Eliazar Amos MD Work Phone: [facility] 11-06-2024 15:38-0500 Respiratory rate 18 /min Dr. Eliazar Amos MD Work Phone: [facility] 11-06-2024 15:38-0500 SaO2% (BldA) [Mass fraction] 94 % Dr. Eliazar Amos MD Work Phone: [facility] 11-06-2024 15:38-0500 Systolic blood pressure 130 mm[Hg] Dr. Eliazar Amos MD Work Phone: [facility] 10-15-2024 01:52-0500 Body temperature 98.1 [degF] Dr. Eliazar Amos MD Work Phone: [facility] 10-15-2024 01:52-0500 Diastolic blood pressure 100 mm[Hg] Dr. Eliazar Amos MD Work Phone: [facility] 10-15-2024 01:52-0500 Heart rate 95 /min Dr. Eliazar Amos MD Work Phone: [facility] 10-15-2024 01:52-0500 Respiratory rate 18 /min Dr. Eliazar Amos MD Work Phone: [facility] 10-15-2024 01:52-0500 SaO2% (BldA) [Mass fraction] 99 % Dr. Eliazar Amos MD Work Phone: [facility] 10-15-2024 01:52-0500 Systolic blood pressure 147 mm[Hg] Dr. Eliazar Amos MD Work Phone: [facility] 10-14-2024 22:15-0500 Body mass index (BMI) [Ratio] 44.5 kg/m2 Dr. Eliazar Amos MD Work Phone: [facility] 10-14-2024 22:15-0500 Body weight 144.[address] Eliazar Amos MD Work Phone: [facility] 09-07-2024 21:43-0500 SaO2% (BldA) [Mass fraction] 95 % Mona Collazo DO Work Phone: [facility] 09-07-2024 21:41-0500 Body temperature 97.81 [degF] Mona Collazo DO Work Phone: [facility] 09-07-2024 21:41-0500 Diastolic blood pressure 98 mm[Hg] Mona Babboch DO Work Phone: [facility] [employer] 09-07-2024 21:41-0500 Heart rate 87 /min Mona Vale DO Work Phone: [facility] [employer] 09-07-2024 21:41-0500 Respiratory rate 18 /min Mona Babboch DO Work Phone: [facility] [employer] 09-07-2024 21:41-0500 Systolic blood pressure 138 mm[Hg] Mona Babboch DO Work Phone: [facility] [employer] 07-25-2024 11:28-0500 Body temperature 98.01 [degF] Katie Brizuela MD Work Phone: [facility] 07-25-2024 11:28-0500 Diastolic blood pressure 106 mm[Hg] Katie Brizuela MD Work Phone: [facility] 07-25-2024 11:28-0500 Heart rate 83 /min Katie Brizuela MD Work Phone: [facility] 07-25-2024 11:28-0500 Respiratory rate 18 /min Katie Brizuela MD Work Phone: [facility] 07-25-2024 11:28-0500 SaO2% (BldA) [Mass fraction] 96 % Katie Brizuela MD Work Phone: [facility] 07-25-2024 11:28-0500 Systolic blood pressure 135 mm[Hg] Katie Brizuela MD Work Phone: [facility] 05-02-2024 17:37-0400 Blood Pressure Location SPRING BRANCH DO [facility] 05-02-2024 17:37-0400 Blood Pressure Method [place] [place] [facility] 05-02-2024 17:37-0400 Body height 180.3 cm [facility] DO [facility] 05-02-2024 17:37-0400 Body temperature 99.32 [degF] SPRING REICHFIELD DO [facility] 05-02-2024 17:37-0400 Body weight 131.2 kg SPR[facility] RE[place] DO [facility] 05-02-2024 17:37-0400 Diastolic Blood Pressure Non-Invasive 94 mm[Hg] [facility] 05-02-2024 17:37-0400 Heart rate 82 /min SPR[facility] REICH[place] DO [facility] 05-02-2024 17:37-0400 Respiratory rate 16 /min [facility] 05-02-2024 17:37-0400 Systolic Blood Pressure Non-Invasive 135 mm[Hg] [facility] 01-24-2024 15:20-0400 Body height 180.3 cm Paige Cioce [employer] Work Phone: [facility] 01-24-2024 15:20-0400 Body mass index (BMI) [Ratio] 41.51 kg/m2 Paige Cioce [employer] Work Phone: [facility] 01-24-2024 15:20-0400 Body temperature 97.3 [degF] Paige Cioce [employer] Work Phone: [facility] 01-24-2024 15:20-0400 Body weight 134.99 kg Paige Cioce [employer] Work Phone: [facility] 01-24-2024 15:20-0400 Diastolic blood pressure 78 mm[Hg] Paige Cioce [employer] Work Phone: [facility] 01-24-2024 15:20-0400 Heart rate 86 /min Paige Cioce [employer] Work Phone: [facility] 01-24-2024 15:20-0400 SaO2% (BldA) [Mass fraction] 96 % Paige Cioce [employer] Work Phone: [facility] 01-24-2024 15:20-0400 Systolic blood pressure 108 mm[Hg] Paige Cioce [employer] Work Phone: [facility] 11-22-2023 16:40-0400 Body temperature 97.2 [degF] Dr. Eliazar Amos Work Phone: [facility] 11-22-2023 16:40-0400 Diastolic blood pressure 96 mm[Hg] Dr. Eliazar Amos Work Phone: [facility] 11-22-2023 16:40-0400 Heart rate 100 /min Dr. Eliazar Amos Work Phone: [facility] 11-22-2023 16:40-0400 Respiratory rate 18 /min Dr. Eliazar Amso Work Phone: [facility] 11-22-2023 16:40-0400 SaO2% (BldA) [Mass fraction] 94 % Dr. Eliazar Amos Work Phone: [facility] 11-22-2023 16:40-0400 Systolic blood pressure 150 mm[Hg] Dr. Eliazar Amos Work Phone: [facility] 11-22-2023 14:00-0400 Inhaled oxygen flow rate 3 L/min Dr. Eliazar Amos Work Phone: [facility] 11-22-2023 09:11-0400 Body height 180.[address] Eliazar Amos Work Phone: [facility] 11-22-2023 09:11-0400 Body mass index (BMI) [Ratio] 41.3 kg/m2 Dr. Eliazar Amos Work Phone: [facility] 11-22-2023 09:11-0400 Body weight 134.[address] Eliazar Amos Work Phone: [facility] 10-24-2023 22:07-0500 Body temperature 97.7 [degF] DR MAREN WAN MD [facility] 10-24-2023 22:07-0500 Diastolic Blood Pressure Non-Invasive 92 mm[Hg] DR MAREN WAN MD [facility] 10-24-2023 22:07-0500 Heart rate 74 /min DR MAREN WAN MD [facility] 10-24-2023 22:07-0500 Respiratory rate 18 /min DR MAREN WAN MD [facility] 10-24-2023 22:07-0500 Systolic Blood Pressure Non-Invasive 142 mm[Hg] DR MAREN WAN MD [facility] 10-12-2023 14:13-0500 Body height 180.[address] Eliazar Amos Work Phone: [facility] 10-12-2023 14:13-0500 Body mass index (BMI) [Ratio] 40.4 kg/m2 Dr. Eliazar Amos Work Phone: [facility] 10-12-2023 14:13-0500 Body temperature 97.9 [degF] Dr. Eliazar Amos Work Phone: [facility] 10-12-2023 14:13-0500 Body weight 131.[address] Eliazar Amos Work Phone: [facility] 10-12-2023 14:13-0500 Diastolic blood pressure 82 mm[Hg] Dr. Eliazar Amos Work Phone: [facility] 10-12-2023 14:13-0500 Heart rate 88 /min Dr. Eliazar Amos Work Phone: [facility] 10-12-2023 14:13-0500 Respiratory rate 16 /min Dr. Eliazar Amos Work Phone: [facility] 10-12-2023 14:13-0500 SaO2% (BldA) [Mass fraction] 97 % Dr. Eliazar Amos Work Phone: [facility] 10-12-2023 14:13-0500 Systolic blood pressure 120 mm[Hg] Dr. Eliazar Amos Work Phone: [facility] 08-09-2023 09:28-0500 Body temperature 98.49 [degF] Paige Cioce [employer] Work Phone: [facility] 08-09-2023 09:28-0500 Body weight 129 kg Paige Cioce [employer] Work Phone: [facility] 08-09-2023 09:28-0500 Diastolic blood pressure 90 mm[Hg] Paige Cioce [employer] Work Phone: [facility] 08-09-2023 09:28-0500 Heart rate 96 /min Paige Cioce [employer] Work Phone: [facility] 08-09-2023 09:28-0500 SaO2% (BldA) [Mass fraction] 97 % Paige Cioce [employer] Work Phone: [facility] 08-09-2023 09:28-0500 Systolic blood pressure 140 mm[Hg] Paige Cioce [employer] Work Phone: [facility] 08-03-2023 14:42-0500 Body height 180.[address] Eliazar Amos Work Phone: [facility] 08-03-2023 14:42-0500 Body mass index (BMI) [Ratio] 39 kg/m2 Dr. Eliazar Amos Work Phone: [facility] 08-03-2023 14:42-0500 Body temperature 98.9 [degF] Dr. Eliazar Amos Work Phone: [facility] 08-03-2023 14:42-0500 Body weight [address] Eliazar Amos Work Phone: [facility] 08-03-2023 14:42-0500 Diastolic blood pressure 82 mm[Hg] Dr. Eliazar Amos Work Phone: [facility] 08-03-2023 14:42-0500 Heart rate 86 /min Dr. Eliazar Amos Work Phone: [facility] 08-03-2023 14:42-0500 Respiratory rate 16 /min Dr. Eliazar Amos Work Phone: [facility] 08-03-2023 14:42-0500 SaO2% (BldA) [Mass fraction] 97 % Dr. Eliazar Amos Work Phone: [facility] 08-03-2023 14:42-0500 Systolic blood pressure 122 mm[Hg] Dr. Eliazar Amos Work Phone: [facility] 06-21-2023 12:11-0400 Body height 180.3 cm Paige Cioce [employer] Work Phone: [facility] 06-21-2023 12:11-0400 Body weight 123.83 kg Paige Cioce [employer] Work Phone: [facility] 06-21-2023 12:11-0400 Diastolic blood pressure 84 mm[Hg] Paige Cioce [employer] Work Phone: [facility] 06-21-2023 12:11-0400 Heart rate 69 /min Paige Cioce [employer] Work Phone: [facility] 06-21-2023 12:11-0400 SaO2% (BldA) [Mass fraction] 95 % Paige Cioce [employer] Work Phone: [facility] 06-21-2023 12:11-0400 Systolic blood pressure 138 mm[Hg] Paige Cioce [employer] Work Phone: [facility] 05-17-2023 09:52-0400 Body height 180.3 cm Paige Cioce [employer] Work Phone: [facility] 05-17-2023 09:52-0400 Body temperature 97.59 [degF] Paige Cioce [employer] Work Phone: [facility] 05-17-2023 09:52-0400 Body weight 119.93 kg Paige Cioce [employer] Work Phone: [facility] 05-17-2023 09:52-0400 Heart rate 68 /min Paige Cioce [employer] Work Phone: [facility] 05-17-2023 09:52-0400 SaO2% (BldA) [Mass fraction] 96 % Paige Cioce [employer] Work Phone: [facility] 05-11-2023 14:52-0400 Body mass index (BMI) [Ratio] 37.2 kg/m2 Dr. Eliazar Amos Work Phone: [facility] 05-11-2023 14:52-0400 Body temperature 96.2 [degF] Dr. Eliazar Amos Work Phone: [facility] 05-11-2023 14:52-0400 Body weight 121.[address] Eliazar Amos Work Phone: [facility] 05-11-2023 14:52-0400 Diastolic blood pressure 90 mm[Hg] Dr. Eliazar Amos Work Phone: [facility] 05-11-2023 14:52-0400 Heart rate 87 /min Dr. Eliazar Amos Work Phone: [facility] 05-11-2023 14:52-0400 Respiratory rate 16 /min Dr. Eliazar Amos Work Phone: [facility] 05-11-2023 14:52-0400 SaO2% (BldA) [Mass fraction] 97 % Dr. Eliazar Amos Work Phone: [facility] 05-11-2023 14:52-0400 Systolic blood pressure 120 mm[Hg] Dr. Eliazar Amos Work Phone: [facility] 05-03-2023 15:23-0400 Body mass index (BMI) [Ratio] 36.8 kg/m2 Dr. Eliazar Amos Work Phone: [facility] 05-03-2023 15:23-0400 Body temperature 96.8 [degF] Dr. Eliazar Amos Work Phone: [facility] 05-03-2023 15:23-0400 Body weight 119.[address] Eliazar Amos Work Phone: [facility] 05-03-2023 15:23-0400 Diastolic blood pressure 88 mm[Hg] Dr. Eliazar Amos Work Phone: [facility] 05-03-2023 15:23-0400 Heart rate 73 /min Dr. Eliazar Amos Work Phone: [facility] 05-03-2023 15:23-0400 Respiratory rate 18 /min Dr. Eliazar Amos Work Phone: [facility] 05-03-2023 15:23-0400 SaO2% (BldA) [Mass fraction] 98 % Dr. Eliazar Amos Work Phone: [facility] 05-03-2023 15:23-0400 Systolic blood pressure 128 mm[Hg] Dr. Eliazar Amos Work Phone: [facility] 05-02-2023 11:43-0400 Body mass index (BMI) [Ratio] 36.8 kg/m2 Dr. Eliazar Amos Work Phone: [facility] 05-02-2023 11:43-0400 Body temperature 98.1 [degF] Dr. Eliazar Amos Work Phone: [facility] 05-02-2023 11:43-0400 Body weight 119.[address] Eliazar Amos Work Phone: [facility] 05-02-2023 11:43-0400 Diastolic blood pressure 80 mm[Hg] Dr. Eliazar Amos Work Phone: [facility] 05-02-2023 11:43-0400 Heart rate 81 /min Dr. Eliazar Amos Work Phone: [facility] 05-02-2023 11:43-0400 Respiratory rate 17 /min Dr. Eliazar Amos Work Phone: [facility] 05-02-2023 11:43-0400 SaO2% (BldA) [Mass fraction] 97 % Dr. Eliazar Amos Work Phone: [facility] 05-02-2023 11:43-0400 Systolic blood pressure 100 mm[Hg] Dr. Eliazar Amos Work Phone: [facility] 04-05-2023 14:22-0400 Body height 180.3 cm Paige Cioce [employer] Work Phone: [facility] 04-05-2023 14:22-0400 Body weight 122.02 kg Paige Cioce [employer] Work Phone: [facility] 04-05-2023 14:22-0400 Diastolic blood pressure 82 mm[Hg] Paige Cioce [employer] Work Phone: [facility] 04-05-2023 14:22-0400 Heart rate 68 /min Paige Cioce [employer] Work Phone: [facility] 04-05-2023 14:22-0400 Respiratory rate 14 /min Paige Cioce [employer] Work Phone: [facility] 04-05-2023 14:22-0400 Systolic blood pressure 112 mm[Hg] Paige Cioce [employer] Work Phone: [facility] 12-20-2022 09:06-0400 Body height 180.[address] Eliazar Amos Work Phone: [facility] 12-20-2022 09:06-0400 Body mass index (BMI) [Ratio] 38.6 kg/m2 Dr. Eliazar Amos Work Phone: [facility] 12-20-2022 09:06-0400 Body temperature 97.8 [degF] Dr. Eliazar Amos Work Phone: [facility] 12-20-2022 09:06-0400 Body weight 125.[address] Eliazar Amos Work Phone: [facility] 12-20-2022 09:06-0400 Diastolic blood pressure 86 mm[Hg] Dr. Eliazar Amos Work Phone: [facility] 12-20-2022 09:06-0400 Heart rate 78 /min Dr. Eliazar Amos Work Phone: [facility] 12-20-2022 09:06-0400 Respiratory rate 17 /min Dr. Eliazar Amos Work Phone: [facility] 12-20-2022 09:06-0400 SaO2% (BldA) [Mass fraction] 98 % Dr. Eliazar Amos Work Phone: [facility] 12-20-2022 09:06-0400 Systolic blood pressure 120 mm[Hg] Dr. Eliazar Amos Work Phone: [facility] 12-09-2022 17:06-0400 Diastolic Blood Pressure Non-Invasive 96 1 SPRING RE[facility] DO [facility] 12-09-2022 17:06-0400 Heart rate 67 /min SPR[facility] RE[facility] DO [facility] 12-09-2022 17:06-0400 Respiratory rate 16 /min SPR[facility] RE[place] DO [facility] 12-09-2022 17:06-0400 Systolic Blood Pressure Non-Invasive 145 1 [facility] RE[place] DO [facility] 12-09-2022 15:35-0400 Body height 180 cm SPRING REICH[facility] DO [facility] 12-09-2022 15:35-0400 Body temperature 97.52 [degF] SPRING REICH[facility] DO [facility] 12-09-2022 15:35-0400 Body weight 110 kg SPRING REICH[facility] DO [facility] 12-09-2022 15:35-0400 Diastolic Blood Pressure Non-Invasive 93 1 [place] RE[place] DO [facility] 12-09-2022 15:35-0400 Heart rate 75 /min SPR[facility] RE[place] DO [facility] 12-09-2022 15:35-0400 Respiratory rate 16 /min SPR[facility] RE[place] DO [facility] 12-09-2022 15:35-0400 Systolic Blood Pressure Non-Invasive 134 1 SPRING BRANCH DO [facility] 12-07-2022 14:43-0400 Diastolic Blood Pressure Non-Invasive [address] NAYELY FISHER MD [facility] 12-07-2022 14:43-0400 Heart rate 90 /min DR NAYELY FISHER MD [facility] 12-07-2022 14:43-0400 Reason For Taking VItal Signs DR NAYELY FISHER MD [facility] 12-07-2022 14:43-0400 Respiratory rate 18 /min DR NAYELY FISHER MD [facility] 12-07-2022 14:43-0400 Systolic Blood Pressure Non-Invasive [address] NAYELY FISHER MD [facility] 12-07-2022 12:52-0400 Diastolic Blood Pressure Non-Invasive [address] NAYELY FISHER MD [facility] 12-07-2022 12:52-0400 Heart rate 68 /min DR NAYELY FISHER MD [facility] 12-07-2022 12:52-0400 Respiratory rate 16 /min DR NAYELY FISHER MD [facility] 12-07-2022 12:52-0400 Systolic Blood Pressure Non-Invasive [address] NAYELY FISHER MD [facility] 12-07-2022 12:30-0400 Body temperature 96.98 [degF] DR NAYELY FISHER MD [facility] 12-07-2022 12:30-0400 Diastolic Blood Pressure Non-Invasive [address] NAYELY FISHER MD [facility] 12-07-2022 12:30-0400 Heart rate 100 /min DR NAYELY FISHER MD [facility] 12-07-2022 12:30-0400 Respiratory rate 18 /min DR NAYELY FISHER MD [facility] 12-07-2022 12:30-0400 Systolic Blood Pressure Non-Invasive [address] NAYELY FISHER MD [facility] 08-12-2022 19:45-0500 Respiratory rate 16 /min Dr. Eliazar Amos Work Phone: [facility] Work Phone: 08-12-2022 18:14-0500 Heart rate 103 /min Dr. Eliazar Amos Work Phone: [facility] Work Phone: 08-12-2022 18:14-0500 SaO2% (BldA) [Mass fraction] 99 % Dr. lEiazar Amos Work Phone: [facility] Work Phone: 08-12-2022 15:59-0500 Body height 180.[address] Eliazar Amos Work Phone: [facility] Work Phone: 08-12-2022 15:59-0500 Body mass index (BMI) [Ratio] 38.5 kg/m2 Dr. Eliazar Amos Work Phone: [facility] Work Phone: 08-12-2022 15:59-0500 Body temperature 98.3 [degF] Dr. Eliazar Amos Work Phone: [facility] Work Phone: 08-12-2022 15:59-0500 Body weight 125.[address] Eliazar Amos [facility]: [facility] [facility] Work Phone: 08-12-2022 15:59-0500 Diastolic blood pressure 88 mm[Hg] Dr. Eliazar Amos Work Phone: [facility] Work Phone: 08-12-2022 15:59-0500 Systolic blood pressure 153 mm[Hg] Dr. Eliazar Amos Work Phone: [facility] Work Phone: 07-10-2022 13:47-0500 Body temperature 98.6 [degF] DEAN LYON MD [facility] 07-10-2022 13:47-0500 Diastolic blood pressure 80 mm[Hg] DEAN LYON MD [facility] 07-10-2022 13:47-0500 Heart rate 85 /min DEAN LYON MD [facility] 07-10-2022 13:47-0500 Respiratory rate 18 /min DEAN LYON MD [facility] 07-10-2022 13:47-0500 Systolic blood pressure 123 mm[Hg] DEAN LYON MD [facility] 06-25-2022 13:53-0400 Heart rate 89 /min Dr. Eliazar Amos Work Phone: [facility] Work Phone: 06-25-2022 13:53-0400 Respiratory rate 16 /min Dr. Eliazar Amos Work Phone: [facility] Work Phone: 06-25-2022 13:09-0400 Body height 180.[address] Eliazar Amos Work Phone: [facility] Work Phone: 06-25-2022 13:09-0400 Body mass index (BMI) [Ratio] 37.5 kg/m2 Dr. Eliazar Amos Work Phone: [facility] Work Phone: 06-25-2022 13:09-0400 Body temperature 97.5 [degF] Dr. Eliazar Amos Work Phone: [facility] Work Phone: 06-25-2022 13:09-0400 Body weight 122.[address] Eliazar Amos Work Phone: [facility] Work Phone: 06-25-2022 13:09-0400 Diastolic blood pressure 137 mm[Hg] Dr. Eliazar Amos Work Phone: [facility] Work Phone: 06-25-2022 13:09-0400 SaO2% (BldA) [Mass fraction] 98 % Dr. Eliazar Amos Work Phone: [facility] Work Phone: 06-25-2022 13:09-0400 Systolic blood pressure 163 mm[Hg] Dr. Eliazar Amos Work Phone: [facility] Work Phone: 06-07-2022 14:33-0400 Body height 180.[address] Eliazar Amos Work Phone: [facility] Work Phone: 06-07-2022 14:33-0400 Body mass index (BMI) [Ratio] 40 kg/m2 Dr. Eliazar Amos Work Phone: [facility] Work Phone: 06-07-2022 14:33-0400 Body temperature 97.1 [degF] Dr. Eliazar Amos Work Phone: [facility] Work Phone: 06-07-2022 14:33-0400 Body weight 130.[address] Eliazar Amos Work Phone: [facility] Work Phone: 06-07-2022 14:33-0400 Diastolic blood pressure 92 mm[Hg] Dr. Eliazar Amos Work Phone: [facility] Work Phone: 06-07-2022 14:33-0400 Heart rate 69 /min Dr. Eliazar Amos Work Phone: [facility] Work Phone: 06-07-2022 14:33-0400 Respiratory rate 14 /min Dr. Eliazar Amos Work Phone: [facility] Work Phone: 06-07-2022 14:33-0400 SaO2% (BldA) [Mass fraction] 97 % Dr. Eliazar Amos Work Phone: [facility] Work Phone: 06-07-2022 14:33-0400 Systolic blood pressure 142 mm[Hg] Dr. Eliazar Amos Work Phone: [facility] Work Phone: 04-04-2022 22:16-0400 Body height 180.[address] PATRIA PARRA DO [facility] 04-04-2022 22:16-0400 Body temperature 98.06 [degF] DR PATRIA PARRA DO [facility] 04-04-2022 22:16-0400 Body weight 118.[address] PATRIA PARRA DO [facility] 04-04-2022 22:16-0400 Diastolic blood pressure 90 mm[Hg] DR PATRIA PARRA DO [facility] 04-04-2022 22:16-0400 Heart rate 75 /min DR PATRIA PARRA DO [facility] 04-04-2022 22:16-0400 Respiratory rate 18 /min DR PATRIA PARRA DO [facility] 04-04-2022 22:16-0400 Systolic blood pressure 135 mm[Hg] DR PATRIA PARRA DO [facility] 02-16-2022 14:15-0400 Body height 177 cm MARIYA LEALДМИТРИЙ DO [facility] 02-16-2022 14:15-0400 Body temperature 98.42 [degF] MARIYARADHA BELLAESKA DO [facility] 02-16-2022 14:15-0400 Body weight 122 kg MARIYA LEALKA DO [facility] 02-16-2022 14:15-0400 Diastolic blood pressure 89 mm[Hg] MARIYA BELLAESKA DO [facility] 02-16-2022 14:15-0400 Heart rate 110 /min MARIYA BELLAESKA DO [facility] 02-16-2022 14:15-0400 Respiratory rate 18 /min MARIYA BELLAESKA DO [facility] 02-16-2022 14:15-0400 Systolic blood pressure 135 mm[Hg] MARIYA ELVISДМИТРИЙ DO [facility] 12-26-2021 16:10-0400 Body temperature 97.7 [degF] DR PATRIA PARRA DO [facility] 12-26-2021 16:10-0400 Diastolic blood pressure 84 mm[Hg] DR PATRIA PARRA DO [facility] 12-26-2021 16:10-0400 Heart rate 94 /min DR PATRIA PARRA DO [facility] 12-26-2021 16:10-0400 Respiratory rate 18 /min DR PATRIA PARRA DO [facility] 12-26-2021 16:10-0400 Systolic blood pressure 122 mm[Hg] DR PATRIA PARRA DO [facility] 12-08-2021 17:13-0400 Body height 180.[address] Maren Sultana Work Phone: [facility] Work Phone: 12-08-2021 17:13-0400 Body mass index (BMI) [Ratio] 40 kg/m2 Dr. Maren Sultana Work Phone: [facility] Work Phone: 12-08-2021 17:13-0400 Body temperature 96.7 [degF] Dr. Maren Sultana Work Phone: [facility] Work Phone: 12-08-2021 17:13-0400 Body weight 130.[address] Maren Sultana Work Phone: [facility] Work Phone: 12-08-2021 17:13-0400 Diastolic blood pressure 122 mm[Hg] Dr. Maren Sultana Work Phone: [facility] Work Phone: 12-08-2021 17:13-0400 Heart rate 76 /min Dr. Maren Sultana Work Phone: [facility] Work Phone: 12-08-2021 17:13-0400 Respiratory rate 15 /min Dr. Maren Sultana Work Phone: [facility] Work Phone: 12-08-2021 17:13-0400 SaO2% (BldA) [Mass fraction] 98 % Dr. Maren Sultana Work Phone: [facility] Work Phone: 12-08-2021 17:13-0400 Systolic blood pressure 144 mm[Hg] Dr. Maren Sultana Work Phone: [facility] Work Phone: 11-17-2021 14:46-0400 Body mass index (BMI) [Ratio] 39.4 kg/m2 Dr. Maren Sultana Work Phone: [facility] Work Phone: 11-17-2021 14:46-0400 Body temperature 98.3 [degF] Dr. Maren Sultana Work Phone: [facility] Work Phone: 11-17-2021 14:46-0400 Body weight 128.[address] Maren Sultana Work Phone: [facility] Work Phone: 11-17-2021 14:46-0400 Diastolic blood pressure 82 mm[Hg] Dr. Maren Sultana Work Phone: [facility] Work Phone: 11-17-2021 14:46-0400 Heart rate 90 /min Dr. Maren Sultana Work Phone: [facility] Work Phone: 11-17-2021 14:46-0400 Respiratory rate 14 /min Dr. Maren Sultana Work Phone: [facility] Work Phone: 11-17-2021 14:46-0400 SaO2% (BldA) [Mass fraction] 98 % Dr. Maren Sultana Work Phone: [facility] Work Phone: 11-17-2021 14:46-0400 Systolic blood pressure 126 mm[Hg] Dr. Maren Sultana Work Phone: [facility] Work Phone: 10-28-2021 13:27-0500 Body mass index (BMI) [Ratio] 40 kg/m2 Dr. Maren Sultana Work Phone: [facility] Work Phone: 10-28-2021 13:27-0500 Body temperature 97.7 [degF] Dr. Maren Sultana Work Phone: [facility] Work Phone: 10-28-2021 13:27-0500 Body weight 130.[address] Maren Sultana Work Phone: [facility] Work Phone: 10-28-2021 13:27-0500 Heart rate 67 /min Dr. Maren Sultana Work Phone: [facility] Work Phone: 10-28-2021 13:27-0500 Respiratory rate 16 /min Dr. Maren Sultana Work Phone: [facility] Work Phone: 10-28-2021 13:27-0500 SaO2% (BldA) [Mass fraction] 97 % Dr. Maren Sultana Work Phone: [facility] Work Phone: 09-02-2021 12:19-0500 Body mass index (BMI) [Ratio] 38.9 kg/m2 Dr. Maren Sultana Work Phone: [facility] Work Phone: 09-02-2021 12:19-0500 Body temperature 95.9 [degF] Dr. Maren Sultana Work Phone: [facility] Work Phone: 09-02-2021 12:19-0500 Body weight 126.[address] Maren Sultana Work Phone: [facility] Work Phone: 09-02-2021 12:19-0500 Diastolic blood pressure 86 mm[Hg] Dr. Maren Sultana Work Phone: [facility] Work Phone: 09-02-2021 12:19-0500 Heart rate 90 /min Dr. Maren Sultana Work Phone: [facility] Work Phone: 09-02-2021 12:19-0500 Respiratory rate 16 /min Dr. Maren Sultana Work Phone: [facility] Work Phone: 09-02-2021 12:19-0500 SaO2% (BldA) [Mass fraction] 97 % Dr. Maren Sultana Work Phone: [facility] Work Phone: 09-02-2021 12:19-0500 Systolic blood pressure 124 mm[Hg] Dr. Maren Sultana Work Phone: [facility] Work Phone: Encounters Encounter Date Encounter Type Care Provider Facility Start: 07-04-2025 End: 07-04-2025 ambulatory [facility] [place] Start: 06-29-2025 End: 06-30-2025 Emergency department patient visit [facility] Facility:[facility] Start: 05-30-2025 End: 05-30-2025 Emergency department patient visit Dr. Eliazar Amos MD Work Phone: -Emergency Department Work Phone: Start: 05-16-2025 End: 05-16-2025 Emergency department patient visit Dr. Eliazar Amos MD Work Phone: -Emergency Department Work Phone: Start: 05-07-2025 End: 05-07-2025 Nursing evaluation of patient and report Dulce Smith RN Work Phone: Endocrinology Comment on above: Diabetes mellitus tr eated with injections of non-insulin medication (HCC) Start: 05-07-2025 End: 05-07-2025 Patient encounter procedure Paige Muller APRN.TIMBER TRIMMER Work Phone: Endocrinology Comment on above: Diabetes mellitus tr eated with injections of non-insulin medication (HCC) (Primary Dx); Obesity, Class III, BMI 40-49.9 (morbid obesity) (HCC); Poorly controlled type 2 diabetes mellitus (HCC) Start: 05-07-2025 End: 05-07-2025 [facility] Start: 05-02-2025 End: 05-02-[address] Eliazar Amos MD -[facility] Work Phone: Start: 05-02-2025 End: 05-02-[address] Eliazar Amos MD Work Phone: -[facility] Start: 04-08-2025 End: 04-08-2025 Emergency department patient visit Dr. Eliazar Amos MD Work Phone: -Emergency Department Work Phone: Start: 03-20-2025 End: 03-20-[address] Eliazar Amos MD -[facility] Work Phone: Start: 03-20-2025 End: 03-20-[address] Eliazar Amos MD Work Phone: -[facility] Start: 03-18-2025 End: 03-18-2025 Emergency department patient visit Dr. Eliazar Amos MD Work Phone: -Emergency Department Work Phone: Start: 02-17-2025 ambulatory Eliazar Castillo ty:[facility] Start: 01-20-2025 End: 01-20-2025 Telephone encounter Paige Muller APRN.TIMBER TRIMMER Work Phone: [facility] Comment on above: Insurance Authorizat ion (OZEMPIC) 1 mg/dose (4 mg/3 mL)) Start: 01-17-2025 End: 01-17-2025 Emergency department patient visit Dr. Eliazar Amos MD Work Phone: -Emergency Department Work Phone: Start: 01-16-2025 End: 01-20-2025 Telephone encounter Paige Muller WOOL MIXER.TIMBER TRIMMER Work Phone: [facility] Comment on above: Medication Preauthor ization Start: 01-02-2025 End: 01-14-2025 Telephone encounter Paige Muller WOOL MIXER.TIMBER TRIMMER Work Phone: [facility] Comment on above: Insurance Authorizat ion ( (MOUNJARO) 5 mg/0.5 mL); Medication Problem Start: 01-01-2025 End: 01-01-2025 Patient encounter procedure Paige Muller WOOL MIXER.TIMBER TRIMMER Work Phone: Endocrinology Comment on above: Diabetes mellitus tr eated with injections of non-insulin medication (HCC) (Primary Dx) Start: 01-01-2025 End: 01-01-2025 ambulatory ELIAZAR AMOS Facility:[facility] Start: 11-15-2024 End: 11-15-[address] Eliazar Amos MD Work Phone: [facility] Work Phone: Start: 11-15-2024 End: 11-15-[address] Eliazar Amos MD -Laboratory, Specimen Work Phone: Start: 11-15-2024 End: 11-15-[address] Eliazar Amos MD -[facility] Work Phone: Start: 11-15-2024 End: 11-15-2024 ambulatory Eliazar Amos [place] Start: 11-15-2024 End: 11-15-2024 ambulatory [facility] Facility:[facility] Start: 11-07-2024 End: 11-07-2024 Telephone encounter Paige Muller WOOL MIXER.TIMBER TRIMMER Work Phone: Endocrinology Comment on above: Appointment Office V erification Start: 11-06-2024 End: 11-06-[address] Delores Begum MD -[facility] Work Phone: Start: 11-06-2024 End: 11-06-2024 [facility] Start: 10-30-2024 End: 10-30-2024 ambulatory Paige Muller WOOL MIXER.TIMBER TRIMMER Work Phone: Endocrinology Comment on above: Mounjaro Denial Start: 10-30-2024 End: 10-30-2024 E-mail encounter from caregiver Paige Muller APRN.TIMBER TRIMMER Work Phone: Endocrinology Start: 10-28-2024 End: 10-29-2024 Telephone encounter Paige Muller WOOL MIXER.TIMBER TRIMMER Work Phone: Endocrinology Comment on above: Patient Question (Re quest medication change) Start: 10-14-2024 End: 10-15-2024 Emergency department patient visit Dr. Shlomo Santizo DO -Emergency Department Work Phone: Start: 10-10-2024 End: 10-10-2024 Refill Paige Muller WOOL MIXER.TIMBER TRIMMER Work Phone: Endocrinology Comment on above: Refill Request Start: 09-24-2024 End: 09-24-2024 Telephone encounter Paige Hectoroccyn WOOL MIXER.TIMBER TRIMMER Work Phone: Endocrinology Comment on above: Prior Authorization freestyle test strips Start: 09-23-2024 End: 09-23-2024 Refill Paige Hectoroccyn WOOL MIXER.TIMBER TRIMMER Work Phone: Endocrinology Comment on above: Refill Request Start: 09-07-2024 End: 09-07-2024 Emergency department patient visit Mona Collazo DO Work Phone: [facility] Comment on above: URI with cough and c ongestion (Primary Dx); Left otitis media, unspecified otitis media type; Pharyngitis, unspecified etiology Start: 07-25-2024 End: 07-25-2024 ambulatory KATIE BRIZUELA Facility:[facility] Start: 07-25-2024 End: 07-25-2024 Office outpatient visit 15 minutes Katie Brizuela MD Work Phone: [facility] Comment on above: Acute upper respirat ory infection (Primary Dx) Start: 07-19-2024 End: 07-19-2024 [facility] Start: 06-26-2024 End: 06-27-2024 Telephone encounter Paige Hectoroccyn WOOL MIXER.TIMBER TRIMMER Work Phone: Endocrinology Comment on above: Refill Request (trul icity) Start: 05-31-2024 End: 05-31-2024 ambulatory Paige Hectoroccyn WOOL MIXER.TIMBER TRIMMER Work Phone: Endocrinology Comment on above: Trulicity Start: 05-31-2024 End: 05-31-2024 E-mail encounter from caregiver Paige Rober Muller APRN.EVA Work Phone: Endocrinology Start: 05-27-2024 End: 05-27-2024 Orders Only Paige Muller APRN.TIMBER TRIMMER Work Phone: Endocrinology Comment on above: Diabetes mellitus tr eated with injections of non-insulin medication (HCC) (Primary Dx) Start: 05-24-2024 End: 05-25-2024 Telephone encounter Paige Muller APRN.TIMBER TRIMMER Work Phone: Endocrinology Comment on above: Medication Problem Start: 05-02-2024 End: 05-02-2024 Emergency department patient visit [facility] Start: 02-20-2024 Refill Paige Muller APRN.TIMBER TRIMMER Work Phone: Endocrinology Comment on above: Refill Request Start: 02-13-2024 Telephone encounter Paige ivy WOOL MIXER.TIMBER TRIMMER Work Phone: Endocrinology Comment on above: Medication Problem; Results; Prior Auth Appeal (Unruly) Start: 01-25-2024 Telephone encounter Paige ivy WOOL MIXER.TIMBER TRIMMER Work Phone: Endocrinology Comment on above: Prior Authorization Unruly (Please resend PA in 3 days, to [facility] through [employer]. Not available yet//[place]) Start: 01-24-2024 End: 01-24-2024 Patient encounter procedure Paige Muller APRN.TIMBER TRIMMER Work Phone: Endocrinology Comment on above: Poorly controlled ty pe 2 diabetes mellitus (HCC) (Primary Dx) Start: 01-16-2024 Refill Paige Hectoroccyn WOOL MIXER.TIMBER TRIMMER Work Phone: Endocrinology Comment on above: Refill Request Start: 11-22-2023 Non-patient / Non-visit Dr. Edwin Amos Work Phone: [facility] Start: 11-22-2023 End: 11-22-2023 Admission to same day surgery center Dr. Eliazar Amos Work Phone: [facility] Start: 11-22-2023 End: 11-22-[address] Eliazar Amos Work Phone: [facility] Work Phone: Start: 10-25-2023 End: 10-25-2023 Emergency department patient visit ELIAZAR AMOS MD Facility:[facility] Start: 10-24-2023 End: 10-24-2023 Emergency department patient visit DR MAREN WAN MD [facility] Start: 10-12-2023 End: 10-12-[address] Eliazar Amos Work Phone: [facility] Work Phone: Start: 10-12-2023 End: 10-12-[address] Eliazar Amos Work Phone: [facility] Internal Medicine Work Phone: Start: 10-10-2023 End: 10-10-[address] Eliazar Amos Work Phone: [facility] Work Phone: Start: 09-27-2023 Non-patient / Non-visit Dr. Edwin Amos Work Phone: [facility] Start: 09-27-2023 End: 09-27-[address] Eliazar Amos Work Phone: [facility] Work Phone: Start: 09-27-2023 End: 09-27-[address] Eliazar Amos Work Phone: [facility]-Pulmonary Services/Neurology Work Phone: Start: 08-21-2023 End: 08-21-[address] Eliazar Amos Work Phone: [facility] Orthopaedic [facility] Work Phone: Start: 08-09-2023 End: 08-09-2023 Patient encounter procedure Paige Hectoroccyn WOOL MIXER.TIMBER TRIMMER Work Phone: Endocrinology Comment on above: Poorly controlled ty pe 2 diabetes mellitus (HCC) (Primary Dx) Start: 08-03-2023 End: 08-03-[address] Eliazar Amos Work Phone: [facility] Work Phone: Start: 08-03-2023 End: 08-03-[address] Eliazar Amos Work Phone: [facility] Internal Medicine Work Phone: Start: 06-21-2023 End: 06-21-2023 Patient encounter procedure Paige Muller WOOL MIXER.TIMBER TRIMMER Work Phone: Endocrinology Comment on above: Poorly controlled ty pe 2 diabetes mellitus (HCC) (Primary Dx) Start: 05-30-2023 End: 05-30-[address] 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 Cyn Amos Work Phone: [facility] Start: 05-11-2023 End: 05-11-2023 Emergency department patient visit Dr. Eliazar Amos Work Phone: [facility] Start: 05-11-2023 End: 05-11-[address] Eliazar Amos Work Phone: [facility] Internal Medicine Work Phone: Start: 05-09-2023 End: 05-09-[address] Eliazar Amos Work Phone: [facility] Work Phone: Start: 05-03-2023 End: 05-03-[address] Eliazar Amos Work Phone: [facility] Internal Medicine Work Phone: Start: 05-03-2023 End: 05-03-[address] Eliazar Amos Work Phone: [facility] Work Phone: Start: 05-02-2023 End: 05-02-[address] Eliazar Amos Work Phone: [facility] Neurology Work Phone: Start: 04-09-2023 Telephone encounter Paige ivy WOOL MIXER.TIMBER TRIMMER Work Phone: Endocrinology Comment on above: Results Start: 04-06-2023 Refill Paige Muller WOOL MIXER.TIMBER TRIMMER Work Phone: Endocrinology Comment on above: Med Change Request Start: 04-05-2023 End: 04-05-2023 Patient encounter procedure Paige Muller WOOL MIXER.TIMBER TRIMMER Work Phone: Endocrinology Comment on above: Type II diabetes debbie litus with manifestations (HCC) (Primary Dx); Goiter Start: 04-05-2023 Telephone encounter Paige ivy APRN.CNP Work Phone: Endocrinology Comment on above: Patient Question Start: 03-17-2023 End: 03-18-2023 ambulatory ELIAZAR AMOS MD Facility:[facility] Start: 03-16-2023 End: 03-16-[address] Eliazar Amos Work Phone: [facility] Work Phone: Start: 03-16-2023 End: 03-16-[address] Eliazar Amos Work Phone: [facility] Work Phone: Start: 03-13-2023 End: 03-18-2023 ambulatory MARINE BACON MD Facility:[facility] Start: 03-13-2023 End: 03-17-2023 Outreach Lab MARINE BACON MD [facility] Start: 12-23-2022 End: 12-23-[address] Eliazar Amos Work Phone: [facility]-Pulmonary Services/Neurology Work Phone: Start: 12-20-2022 End: 12-20-[address] Eliazar Amos Work Phone: [facility] Neurology Work Phone: Start: 12-19-2022 End: 12-19-[address] Eliazar Amos Work Phone: [facility] Work Phone: Start: 12-09-2022 End: 12-09-2022 Emergency department patient visit [facility] Facility:[facility] Start: 12-09-2022 End: 12-09-2022 Emergency department patient visit [facility] DO [facility] Start: 12-07-2022 End: 12-07-2022 Emergency department patient visit DR NAYELY FISHER MD Facility:[facility] Start: 12-07-2022 End: 12-07-2022 Emergency department patient visit DR NAYELY FISHER MD [facility] Start: 08-12-2022 End: 08-12-2022 Emergency department patient visit Dr. Eliazar Amos Work Phone: [facility]-Emergency Department Start: 07-10-2022 End: 07-10-2022 Emergency department patient visit DEAN LYON MD [facility] Start: 06-25-2022 End: 06-25-2022 Emergency department patient visit Dr. Eliazar Amos Work Phone: [facility]-Emergency Department Start: 06-15-2022 End: 06-15-[address] Eliazar Amos Work Phone: [facility] Work Phone: Start: 06-15-2022 End: 06-15-[address] Eliazar Amos Work Phone: [facility] Start: 06-07-2022 End: 06-07-[address] Eliazar Amos Work Phone: [facility] Internal Medicine Start: 04-04-2022 End: 04-04-2022 Emergency department patient visit DR PATRIA PARRA DO [facility] Start: 02-16-2022 End: 02-16-2022 Emergency department patient visit MARIYA CALI DO [facility] Start: 12-26-2021 End: 12-26-2021 Emergency department patient visit DR PATRIA PARRA DO [facility] Start: 12-08-2021 End: 12-08-2021 Emergency department patient visit Dr. Maren Sultana Work Phone: [facility]-Emergency Department Start: 11-17-2021 End: 11-17-[address] Maren Sultana Work Phone: [facility]-Laboratory, Specimen Start: 10-28-2021 End: 10-28-[address] Maren Sultana Work Phone: [facility] Start: 09-02-2021 End: 09-02-[address] Maren Sultana Work Phone: [facility] Internal Medicine Procedures Date Procedure Procedure [...] Start: 05-07-2025 Hemoglobin A1c/Hemoglobin.total in Blood Paige Rober Hectoroce WOOL MIXER.TIMBER TRIMMER Work Phone: Start: 01-17-2025 X-ray of chest, [...] Hemoglobin A1c/Hemoglobin.total in Blood Paige C Cioce WOOL MIXER.TIMBER TRIMMER Work Phone: Start: 05-19-2023 Us soft tissue head & neck real time imge docm Paige C Cioce WOOL MIXER.TIMBER TRIMMER Work Phone: Start: 03-16-2023 MRI of brain [...] SPECIMEN Performed By: #### T SCR #### [facility] CLIA [id number] [address] [place] [address] PATRIA PARRA DO Comment on [...] for Adults (1 - 1-dose 75+ series) [facility] Start: 2048 Zoster Vaccines (1 of 2) Zoster Vaccines (1 of 2) [facility] [facility] Start: 12-09-2031 Tetanus vaccination [facility] Start: 12-09-2031 Urine microalbumin profile DTaP,Tdap,Td Vaccine (9 - Td or Tdap) [facility] Start: 02-21-2031 DTaP/Tdap/Td Vaccines (8 - Td or Tdap) DTaP/Tdap/Td Vaccines (8 - Td or Tdap) [facility] Start: 02-21-2031 Urine microalbumin profile [facility] Start: 01-01-2026 Hepatitis B screening Urine Albumin:Creatinine Ratio [facility] Start: 01-01-2026 Hepatitis B surface antibody level LDL Cholesterol [facility] Start: 08-06-2025 Hemoglobin A1c measurement HbA1C [facility] Start: 07-03-2025 Hemoglobin A1c measurement HbA1C [facility] Start: 05-30-2025 [facility] Start: 05-16-2025 [facility] Start: 05-07-2025 End: 08-06-2025 Comprehensive metabolic 2000 panel - Serum or Plasma COMPREHENSIVE METABOLIC PANEL Lab Routine Diabetes mellitus treated with injections of non-insulin medication (HCC) Expected: 05/07/2025, Expires: 08/06/2025 [facility] Work Phone: Comment on above: Expected: 05/07/2025, Expires: Start: 05-07-2025 End: 08-06-2025 Hemoglobin A1c in Blood HEMOGLOBIN A1C Lab Routine Diabetes mellitus treated with injections of non-insulin medication (HCC) Expected: 05/07/2025, Expires: 08/06/2025 [facility] Comment on above: Expected: 05/07/2025, Expires: Start: 05-07-2025 End: 08-06-2025 LIPID PANEL, NONFASTING LIPID PANEL, NONFASTING Lab Routine Diabetes mellitus treated with injections of non-insulin medication (HCC) Expected: 05/07/2025, Expires: 08/06/2025 [facility] Comment on above: Expected: 05/07/2025, Expires: Start: 05-07-2025 End: 08-06-2025 Microalbumin/Creatinine [Mass Ratio] in Urine ALBUMIN/CREATININE RATIO, URINE Lab Routine Diabetes mellitus treated with injections of non-insulin medication (HCC) Expected: 05/07/2025, Expires: 08/06/2025 [facility] Comment on above: Expected: 05/07/2025, Expires: Start: 05-05-2025 Influenza vaccination [facility] Start: 04-08-2025 [facility] Start: 04-02-2025 End: 04-02-2025 Patient encounter procedure 04/02/2025 2:45 PM EDT Office Visit Endocrinology [address] [place] [address] Paige Muller, WOOL MIXER.TIMBER TRIMMER [address] [place] [address] 3 month follow up Endocrinology Comment on above: 3 month follow up Start: 03-18-2025 [facility] Start: 02-05-2025 End: 02-05-2025 Patient encounter procedure 02/05/2025 12:15 PM EDT Office Visit Endocrinology [address] [place] [address] Paige Muller, WOOL MIXER.TIMBER TRIMMER [address] [place] [address] diabetes Endocrinology Comment on above: diabetes Start: 02-03-2025 End: 02-03-2025 ambulatory 02/03/2025 11:00 AM EDT Education Endocrinology [address] [place] [address] Cristina Delgado, RD [address] [address] Diabetes mellitus treated with injections of non-insulin medication (HCC) [E11.9, Z79.85] Endocrinology Comment on above: Diabetes mellitus treated with injection s of non-insulin medication (HCC) [E11.9, Z79.85] Start: 02-01-2025 Hepatitis B screening Urine Albumin:Creatinine Ratio [facility] Start: 02-01-2025 Hepatitis B surface antibody level LDL Cholesterol [facility] Start: 01-17-2025 End: 01-17-2025 [facility] Start: 01-01-2025 End: 04-02-2025 25-hydroxyvitamin D3 [Mass/volume] in Serum or Plasma [facility] Comment on above: Expected: 01/01/2025, Expires: Start: 01-01-2025 End: 04-02-2025 Hemoglobin A1c in Blood [facility] Comment on above: Expected: 01/01/2025, Expires: Start: 01-01-2025 End: 04-02-2025 LIPID PANEL, NONFASTING [facility] Work Phone: Comment on above: Expected: 01/01/2025, Expires: Start: 01-01-2025 End: 04-02-2025 Microalbumin/Creatinine [Mass Ratio] in Urine [facility] Comment on above: Expected: 01/01/2025, Expires: Start: 01-01-2025 End: 04-02-2025 Thyrotropin [Units/volume] in Serum or Plasma [facility] Comment on above: Expected: 01/01/2025, Expires: Start: 01-01-2025 End: 04-02-2025 Thyroxine (T4) free [Mass/volume] in Serum or Plasma [facility] Comment on above: Expected: 01/01/2025, Expires: Start: 11-07-2024 End: 11-07-2024 Patient encounter procedure 11/07/2024 1:15 PM EST Office Visit Endocrinology [address] [place] [address] Paige Muller, JELENA.TIMBER TRIMMER [address] [place] [address] Follow Up Endocrinology Comment on above: Follow Up Start: 10-15-2024 [facility] Start: 10-14-2024 [facility] Start: 08-03-2024 Hemoglobin A1c measurement HbA1C [facility] Start: 05-05-2024 COVID-19 VACCINE ( season) COVID-19 VACCINE ( season) [facility] Start: 05-05-2024 Covid-19 Vaccine ( season) Covid-19 Vaccine ( season) [facility] Start: 05-05-2024 Influenza vaccination [facility] Start: 04-05-2024 Hepatitis B screening Urine Albumin:Creatinine Ratio [facility] Start: 04-05-2024 Hepatitis B surface antibody level LDL Cholesterol [facility] Start: 12-04-2023 End: 03-04-2024 ALBUMIN/CREAT RATIO RND UR [facility] Work Phone: Comment on above: Expected: 12/04/2023, Expires: Expected: 12/04/2023 , Expires: 03/04/2024 Start: 12-04-2023 End: 03-04-2024 Comprehensive metabolic 2000 panel - Serum or Plasma [facility] Work Phone: Comment on above: Expected: 12/04/2023, Expires: 4 Expected: 12/04/2023 , Expires: 03/04/2024 Start: 12-04-2023 End: 03-04-2024 Hemoglobin A1c in Blood [facility] Work Phone: Comment on above: Expected: 12/04/2023, Expires: 4 Expected: 12/04/2023 , Expires: 03/04/2024 Start: 12-04-2023 End: 03-04-2024 LIPID PANEL, NONFASTING [facility] Work Phone: Comment on above: Expected: 12/04/2023, Expires: 4 Expected: 12/04/2023 , Expires: 03/04/2024 Start: 11-22-2023 Patient discharge [facility] Start: 11-22-2023 Application of ice collar, cap or bag [facility] Start: 11-22-2023 Assessment of risk of venous thromboembolism [facility] Start: 11-22-2023 Catheterization of vein [facility] Start: 11-22-2023 Deep breathing and coughing exercises [facility] Start: 11-22-2023 Following clinical pathway protocol [facility] Start: 11-22-2023 Gait training procedure [facility] Start: 11-22-2023 Incentive spirometry [facility] Start: 11-22-2023 Introduction of urinary catheter [facility] Start: 11-22-2023 Patient education [facility] Start: 11-22-2023 Taking patient vital signs [facility] Start: 11-22-2023 Vital signs measurements [facility] Start: 11-22-2023 [facility] Start: 11-22-2023 Electrocardiographic procedure [facility] Start: 11-22-2023 Medication education [facility] Start: 11-03-2023 End: 01-03-2024 ALBUMIN/CREAT RATIO RND UR ALBUMIN/CREAT RATIO RND UR Lab Routine Type II diabetes mellitus with manifestations (HCC) Expected: 11/03/2023, Expires: 01/03/2024 [facility] Work Phone: Comment on above: Expected: 11/03/2023, Expires: 4 Start: 11-03-2023 End: 01-03-2024 Comprehensive metabolic 2000 panel - Serum or Plasma COMP METABOLIC PANEL Lab Routine Type II diabetes mellitus with manifestations (HCC) Expected: 11/03/2023, Expires: 01/03/2024 [facility] Work Phone: Comment on above: Expected: 11/03/2023, Expires: Start: 11-03-2023 End: 01-03-2024 Hemoglobin A1c in Blood HGB A1C Lab Routine Type II diabetes mellitus with manifestations (HCC) Expected: 11/03/2023, Expires: 01/03/2024 [facility] Work Phone: Comment on above: Expected: 11/03/2023, Expires: Start: 11-03-2023 End: 01-03-2024 LIPID PANEL, NONFASTING LIPID PANEL, NONFASTING Lab Routine Type II diabetes mellitus with manifestations (HCC) Expected: 11/03/2023, Expires: 01/03/2024 [facility] Work Phone: Comment on above: Expected: 11/03/2023, Expires: Start: 09-21-2023 Hemoglobin A1c measurement HbA1C [facility] Start: 09-21-2023 Hemoglobin A1c/Hemoglobin.total in Blood HbA1C [facility] Start: 09-04-2023 Behavioral Health Screening Behavioral Health Screening [facility] Start: 07-06-2023 Hemoglobin A1c/Hemoglobin.total in Blood HbA1C [facility] Start: 06-21-2023 End: 09-20-2023 Hemoglobin A1c in Blood HGB A1C Lab Routine Poorly controlled type 2 diabetes mellitus (HCC) Expected: 06/21/2023, Expires: 09/20/2023 [facility] Work Phone: Comment on above: Expected: 06/21/2023, Expires: Start: 05-05-2023 Covid-19 Vaccine ( season) Covid-19 Vaccine () [facility] Start: 05-05-2023 Influenza vaccination [facility] Start: 04-05-2023 End: 10-02-2023 Glutamate decarboxylase 65 Ab [Units/volume] in Serum [facility] Work Phone: Comment on above: Expected: 04/05/2023, Expires: 3 Start: 04-05-2023 End: 06-05-2023 Pancreatic islet cell Ab [Titer] in Serum [facility] Work Phone: Comment on above: Expected: 04/05/2023, Expires: 3 Start: 09-04-2022 DEPRESSION ASSESSMENT DEPRESSION ASSESSMENT [facility] Start: 08-12-2022 [facility] Work Phone: Start: 06-25-2022 [facility] Work Phone: Start: 01-12-2022 COVID-19 VACCINE (2 - Moderna series) COVID-19 VACCINE (2 - Moderna series) [facility] Start: 12-19-2019 PAP TESTING PAP TESTING [facility] Start: 12-19-2019 Screening for malignant neoplasm of cervix [facility] Start: 2017 Pneumococcal vaccination Pneumococcal Vaccine (1 of 2 - PCV) [facility] Start: 2017 Pneumococcal Vaccine: Pediatrics (0 to 5 Years) and At-Risk Patients (6 to 49 Years) (1 of 2 - PCV) Pneumococcal Vaccine: Pediatrics (0 to 5 Years) and At-Risk Patients (6 to 49 Years) (1 of 2 - PCV) [facility] Start: 2016 Annual PCP Team Chronic Disease Visit Annual PCP Team Chronic Disease Visit [facility] Start: 2016 Anxiety Screening Anxiety Screening [facility] Start: 2016 Depression Screening Depression Screening [facility] Start: 2016 HEPATITIS C SCREENING HEPATITIS C SCREENING [facility] Start: 2016 Hepatitis C screening Hepatitis C Screening [facility] Start: 2016 HIV SCREENING HIV SCREENING [facility] Start: 2016 HIV screening HIV Screening [facility] Start: 2014 Meningococcal B Vaccine: Consider Based On Risk (1 of 2 - Patient Seeks Protection) Meningococcal B Vaccine: Consider Based On Risk (1 of 2 - Patient Seeks Protection) [facility] Start: 2014 MENINGOCOCCAL B: Consider based on risk (1 of 2 - Patient Seeks Protection) MENINGOCOCCAL B: Consider based on risk (1 of 2 - Patient Seeks Protection) [facility] Start: 2014 Screening for Chlamydia trachomatis CHLAMYDIA SCREEN [facility] Start: 2013 HIV screening HIV SCREENING DISCUSSION [facility] Start: 2012 PEDS TO ADULT TRANSITION ANNUAL ASSESSMENT PEDS TO ADULT TRANSITION ANNUAL ASSESSMENT [facility] Start: 12-19-2011 Varicella vaccination Varicella Vaccines (1 of 2 - 13+ 2-dose series) [facility] Start: 11-17-2011 HPV VACCINE (2 - 2-dose series) HPV VACCINE (2 - 2-dose series) [facility] Start: 11-17-2011 HPV Vaccines (2 - 2-dose series) HPV Vaccines (2 - 2-dose series) [facility] Start: 11-17-2011 Vaccination for human papillomavirus HPV VACCINE ADOL (2 - 2-dose series) [facility] Start: 05-24-2011 Glaucoma screening Dilated Retinal Exam [facility] Start: 05-24-2011 Hepatitis C antibody, confirmatory test Dilated Retinal Exam [facility] Start: 2010 Depression Monitoring Depression Monitoring [facility] Start: 2010 PEDS TO ADULT TRANSITION INITIAL DISCUSSION PEDS TO ADULT TRANSITION INITIAL DISCUSSION [facility] Start: 2008 3 comp foot exam completed Diabetic Foot Exam [facility] Start: 2008 Diabetic foot examination Diabetic Foot Exam [facility] Start: 2004 Pneumococcal vaccination [facility] Start: 1998 Hepatitis C screening HEPATITIS C VIRUS SCREENING [facility] Start: 1998 HIV screening HIV Screening [facility] Start: 1998 Screening for Chlamydia trachomatis GONORRHEA SCREEN [facility] Basic metabolic 2008 panel with ionized calcium - Serum or Plasma [facility] Electrocardiographic procedure [facility] Hemoglobin A1c/Hemoglobin.total in Blood HEMOGLOBIN A1C (POC) Lab Routine Poorly controlled type 2 diabetes mellitus (HCC) Ordered: 08/08/2023 [facility] Work Phone: Comment on above: Ordered: 08/08/2023 MRA Head vessels [facility] Patient Education [facility] Work Phone: Patient referral [facility] Work Phone: Polysomnography [facility] Work Phone: Polysomnography [facility] Polysomnography [facility] Urine microalbumin/creatinine ratio measurement [facility] Work Phone: End: 05-04-2024 Us soft tissue head & neck real time imge docm US THYROID/PARATHYROID Radiology Routine Type II diabetes mellitus with manifestations (HCC) 1 Occurrences starting 04/05/2023 until 05/04/2024 [facility] Work Phone: Comment on above: 1 Occurrences starting 04/05/2023 until 05/04/2024 XR Chest PA and Lateral [facility] Immunizations Immunization Date Immunization Notes Care Provider Fa cility 12-08-2021 tetanus toxoid, redu brannon diphtheria toxoid, and acellular pertussis vaccine, adsorbed Dr. Maren Sultana Work Phone: [facility] 02-21-2021 tetanus toxoid, redu brannon diphtheria toxoid, and acellular pertussis vaccine, adsorbed Paige Cioce WOOL MIXER.TIMBER TRIMMER Work Phone: [facility] 08-17-[address] PATRIA PARRA DO [facility] 08-17-2016 meningococcal polysaccharide (groups A, C, Y and W-135) diphtheria toxoid conjugate vaccine (MCV4P) DR PATRIA PARAR DO [facility] 05-19-2011 human papilloma viru s vaccine, quadrivalent Paige Cioce WOOL MIXER.TIMBER TRIMMER Work Phone: [facility] Work Phone: 05-19-[address] PATRIA PARRA DO [facility] 05-19-2011 meningococcal polysaccharide (groups A, C, Y and W-135) diphtheria toxoid conjugate vaccine (MCV4P) DR PATRIA PARRA DO [facility] 05-19-2011 Meningococcal, MCV4, unspecified conjugate formulation(groups A, C, Y and W-135) Paige Muller APRN.TIMBER TRIMMER Work Phone: [facility] 05-19-2011 tetanus toxoid, redu brannon diphtheria toxoid, and acellular pertussis vaccine, adsorbed DR PATRIA PARRA DO [facility] 05-19-2011 HPV, unspecified formulation Mona Alcalaulloch DO Work Phone: [facility] 04-25-2003 diphtheria, tetanus toxoids and acellular pertussis vaccine DR PATRIA PARRA DO [facility] 04-25-2003 measles, mumps and rubella virus vaccine Paige Muller WOOL MIXER.TIMBER TRIMMER Work Phone: [facility] Work Phone: 04-25-2003 measles/mumps/rubell a virus vaccine DR PATRIA PARRA DO [facility] 04-25-2003 poliovirus vaccine, inactivated DR PATRIA PARRA DO [facility] 03-25-2002 diphtheria, tetanus toxoids and acellular pertussis vaccine DR PATRIA PARRA DO [facility] 03-25-2002 haemophilus influenz ae type b vaccine, HbOC conjugate Paige Muller APRN.TIMBER TRIMMER Work Phone: [facility] Work Phone: 03-25-2002 haemophilus influenz ae type b vaccine, PRP-T conjugate DR PATRIA PARRA DO [facility] 03-25-2002 poliovirus vaccine, inactivated DR PATRIA PARRA DO [facility] 02-11-2000 diphtheria, tetanus toxoids and acellular pertussis vaccine DR PATRIA PARRA DO [facility] 02-11-2000 haemophilus influenz ae type b vaccine, HbOC conjugate Paige Cioce WOOL MIXER.TIMBER TRIMMER Work Phone: [facility] Work Phone: 02-11-2000 haemophilus influenz ae type b vaccine, PRP-T conjugate DR PATRIA PARRA DO [facility] 02-11-2000 hepatitis B pediatri c vaccine DR PATRIA PARRA DO [facility] 02-11-2000 hepatitis B vaccine, pediatric or pediatric/adolescent dosage Paige Cioce WOOL MIXER.TIMBER TRIMMER Work Phone: [facility] Work Phone: 02-11-2000 measles, mumps and rubella virus vaccine Paige Cioccyn WOOL MIXER.TIMBER TRIMMER Work Phone: [facility] Work Phone: 02-11-2000 measles/mumps/rubell a virus vaccine DR PATRIA PARRA DO [facility] 10-30-1999 diphtheria, tetanus toxoids and acellular pertussis vaccine DR PATRIA PARRA DO [facility] 10-30-1999 haemophilus influenz ae type b vaccine, HbOC conjugate Paige Cioce WOOL MIXER.TIMBER TRIMMER Work Phone: [facility] Work Phone: 10-30-1999 haemophilus influenz ae type b vaccine, PRP-T conjugate DR PATRIA PARRA DO [facility] 10-30-1999 hepatitis B pediatri c vaccine DR PATRIA PARRA DO [facility] 10-30-1999 hepatitis B vaccine, pediatric or pediatric/adolescent dosage Paige Cioce WOOL MIXER.TIMBER TRIMMER Work Phone: [facility] Work Phone: 10-30-1999 poliovirus vaccine, inactivated DR PATRIA PARRA DO [facility] 02-22-1999 diphtheria, tetanus toxoids and acellular pertussis vaccine DR PATRIA PARRA DO [facility] 02-22-1999 haemophilus influenz ae type b vaccine, HbOC conjugate Paige Cioce WOOL MIXER.TIMBER TRIMMER Work Phone: [facility] Work Phone: 02-22-1999 haemophilus influenz ae type b vaccine, PRP-T conjugate DR PATRIA PARRA DO [facility] 02-22-1999 hepatitis B pediatri c vaccine DR PATRIA PARRA DO [facility] 02-22-1999 hepatitis B vaccine, pediatric or pediatric/adolescent dosage Paige Cioce WOOL MIXER.TIMBER TRIMMER Work Phone: [facility] Work Phone: 02-22-1999 poliovirus vaccine, inactivated DR PATRIA PARRA DO [facility] 1998 hepatitis B pediatri c vaccine DR PATRIA PARRA DO [facility] 1998 hepatitis B vaccine, pediatric or pediatric/adolescent dosage Paige Muller APRN.[facility] Work Phone: [facility] Work Phone: Payers Date Payer Category Payer Medicaid HMO [employer] [id number] 2024 Unknown EVANS SCHAEFER [id number] 2024-Present [address] [place] [address] [id number] 2024 Self-pay [id number] 2022 Medicaid [id number] 2022 Unknown [id number] 1998 Unknown [id number] 1998 Unknown [id number] 1998 Unknown [id number] 2..840.1.892828.3.579.2.627 1998 Unknown [id number] 2..840.1.549109.3.579.2.627 1998 Unknown [id number] 2.840.1.337493.3.579.2.627 1998 Unknown [id number] 2.840.1.842932.3.579.2.478 Unknown [id number] Unknown [id number] .840.1.934609.3.579.2.543 Unknown [id number] .[id number] Unknown [id number] .840.1.378069.3.579.2.462 Unknown [id number] .840.1.802723.3.579.2.462 Unknown [id number] .840.1.261173.3.579.2.462 Unknown [id number] .840.1.634405.3.579.2.462 Unknown [id number] Unknown [id number] .840.1.947773.3.579.2.462 Unknown [id number] .840.1.224510.3.579.2.462 Unknown [id number] .840.1.746610.3.579.2.462 Unknown [id number] .840.1.206992.3.579.2.462 Unknown [id number] .840.1.432283.3.579.2.462 Unknown [id number] Unknown [id number] [id number]2 Unknown [id number] [id number] Unknown [id number] [id number] Social History Date Type Detail Facility Start: 11-17-2021 End: 11-08-2023 Tobacco smoking status NHIS Unknown if ever smoked [facility] Start: 2000 Sex Assigned At Female [facility] Start: 12-21-2020 End: 03-13-2023 Tobacco smoking status Light tobacco smoker (finding) [facility] Sex Assigned At Sex [facility] Tobacco Nicotine Use: Va ping Product in Last 90 Days. Type: Electronic Cigarettes (Vaping). [facility] Start: 11-06-2024 End: 05-30-2025 Tobacco smoking status Smokes tobacco daily (finding) [facility] Start: 04-05-2023 Tobacco smoking status NHIS Never smoked tobacco [facility] History of tobacco use Passive smoker [facility] Start: 04-05-2023 Tobacco use and exposure Smokeless tobacco non-user [facility] Start: 04-05-2023 End: 05-07-2025 Alcohol intake Current non-drinker of alcohol (finding) [facility] Start: 04-05-2023 End: 05-07-2025 History of Social function [facility] Start: 04-05-2023 End: 05-07-2025 Tobacco use panel [facility] Start: 08-05-2012 National Score (1-100), lower number is lower risk 63 [facility] Start: 04-05-2023 Tobacco Comment grandmother 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 Never [facility] Start: 09-07-2024 End: 11-24-2024 Sex Female (finding) [employer] NEGATED: Highlighted row [facility] Medical Equipment Procedure Code Equipment Code Equipment Origin al Text Equipment Identifier Dates Arthroscopy, knee, with meniscectomy SUT TAPE,T-LOOP [id number] FDA Start: 11-22-2023 Arthroscopy, knee, with meniscectomy Tendon/ligament bone anchor, non-bioabsorbable [id number] FDA Start: 11-22-2023 Arthroscopy, knee, with meniscectomy Soft-tissue/mesh anchor, non-bioabsorbable [id number] FDA Start: 11-22-2023 Arthroscopy, knee, with meniscectomy Soft-tissue/mesh anchor, non-bioabsorbable [id number] FDA Start: 11-22-2023 Arthroscopy, knee, with meniscectomy Soft-tissue/mesh anchor, non-bioabsorbable [id number] FDA Start: 11-22-2023 Arthroscopy, knee, with meniscectomy Soft-tissue/mesh anchor, non-bioabsorbable [id number] FDA Start: 11-22-2023 Arthroscopy, knee, with meniscectomy Soft-tissue/mesh anchor, non-bioabsorbable [id number] FDA Start: 11-22-2023 Arthroscopy, knee, with meniscectomy Soft-tissue/mesh anchor, non-bioabsorbable [id number] FDA Start: 11-22-2023 Arthroscopy, knee, with meniscectomy SUT TAPE,T-LOOP [id number] FDA Start: 03-20-2024 Arthroscopy, knee, with meniscectomy SUT TAPE,T-LOOP [id number] [...] # 1 EA, 11 Refill(s), [facility]acy: [facility] [address], cm, 02/24/20 14:27:00 EDT, Height, 126.2, kg, 03/18/20 14:08:00 EDT, Dosing We... Start: 03-26-2020 Blood Sugar Diagnostic (Freestyle Test) strip Start: 06-07-2022 Lancets (Freesty le Lancets) 28 gauge [facility] Start: 06-07-2022 Blood Sugar Diagnostic (Freestyle Test) strip Start: 06-07-2022 Lancets (Freesty le Lancets) 28 gauge [facility] Start: 06-07-2022 See Instructions , Tests twice [...] 06-07-2022 Lancets (Freesty le Lancets) 28 gauge [facility] Start: 06-07-2022 See Instructions , Tests twice [...] # 1 EA, 11 Refill(s), Pharmacy: [facility] [address], cm, 02/24/20 14:27:00 EDT, Height, 126.2, kg, 03/18/20 14:08:00 EDT, Dosing We... Start: 03-26-2020 Blood Sugar Diagnostic (Freestyle Test) strip Start: 09-23-2022 Lancets (Freesty le Lancets) 28 gauge misc Start: 06-07-2022 Blood Sugar Diagnostic (Freestyle Test) strip Start: 06-07-2022 End: 09-22-2022 Blood Sugar Diagnostic (Freestyle Test) strip Start: 09-22-2022 End: 09-23-2022 [id number], [id number], [id number], [id number], [id number], [id number] Start: 03-09-2023 End: 05-07-2025 Comment on above: [...] refills, # 1 EA, 3 Refill(s), [facility] [address] Diabetes, 175.5, cm, 02/08/21 14:56:00 EDT, Height, 136.8, kg, 02/08/21 14:56:00 EDT, Dosing Weight Start: 02-08-2021 See Instructions , qs 1 month supply. check daily. Dx: uncontrolled DM. Adjust to formulary requirements/brand, # 1 EA, 11 Refill(s), [facility]: [facility] [address] 180, cm, 02/24/20 14:27:00 EDT, Height, 126.2, kg, 03/18/20 14:08:00 EDT, Dosing Weight Start: 03-26-2020 Blood Sugar Diagnostic (Freestyle Test) strip Start: 06-07-2022 End: 09-22-2022 Blood Sugar Diagnostic (Freestyle Test) strip Start: 09-22-2022 End: 09-23-2022 See Instructions , Tests twice daily. Please dispense enough for 3 months with 3 refills, # 1 EA, 3 Refill(s), [facility] [address] Diabetes, 175.5, cm, 02/08/21 [...] Diagnostic (Onetouch Verio Test Strips) strip Start: 03-05-2025 Lancets (Onetouc h Delica Plus Lancet) 30 [...] Assessment Result Facility 05-02-2024 Functional Status Independent [facility] 05-02-2024 Functional Status Standard Safet y ID band on, Allergy Band on, Call device within reach, Bed in low position, Wheels locked, personal items within reach, Bedside Cart Locked, Visitor at bedside [facility] 10-24-2023 Functional Status Independent [facility] 12-09-2022 Functional Status Independent [facility] 12-09-2022 Functional Status Standard Safet y ID band on, Allergy Band on, Call device within reach, Bed in low position, Wheels locked, Visitor at bedside [facility] 12-07-2022 Functional Status ID band on, Call device within reach, Bed in low position, Wheels locked, Bedside Cart Locked, Safety level maintained [facility] 07-10-2022 Functional Status Independent [facility] 07-10-2022 Functional Status Standard Safet y ID band on, Allergy Band on, Call device within reach, Bed in low position, Wheels locked, Upper/Half-Length side-rails up, Phone within reach, personal items within reach, Assistive devices within reach, Toileting device within reach, Bedside Cart Locked, Visitor at bedside, Safety level maintained [facility] 04-04-2022 Functional Status Ambulating in huerta, Ambulating in room, Awake [facility] 02-16-2022 Functional Status Standard Safet y ID band on, Allergy Band on, Call device within reach, Bed in low position, Wheels locked [facility] 12-26-2021 Functional Status [facility] 02-21-2021 Are you deaf, or do you have serious difficulty hearing No 02/21/2021 5:37 PM Bernadette Whitehead RN No [facility] 02-21-2021 Are you blind, or do you have serious difficulty seeing, even when wearing glasses No 02/21/2021 5:37 PM Bernadette Whitehead RN No [facility] 02-21-2021 Do you have serious difficulty walking or climbing stairs No 02/21/2021 5:37 PM Bernadette Whitehead RN No [facility] 02-21-2021 Do you have difficul ty dressing or bathing No 02/21/2021 5:37 PM Bernadette Whitehead RN No [facility] 02-21-2021 Because of a physica l, mental, or emotional condition, do you have difficulty doing errands alone such as visiting a physician's office or shopping No 02/21/2021 5:37 PM Bernadette Whitehead RN No [facility] Mental Status Date Assessment Result Facility 05-30-2025 Cognitive function Level Of Cons ciousness Awake [facility] Work Phone: 05-16-2025 Cognitive function Level Of Cons ciousness Awake;Alert;Appropriate;Fol lows Commands [facility] Work Phone: 01-17-2025 Cognitive function Voice/Name [facility] Work Phone: 10-14-2024 Cognitive function Level Of Cons ciousness Awake;Alert;Appropriate;Fol lows Commands [facility] Work Phone: 05-02-2024 Mental Status Orientation Oriented x 4 [facility] 05-02-2024 Mental Status [facility] 11-22-2023 Cognitive function Voice/Name [facility] Work Phone: 10-24-2023 Mental Status Orientation Oriented x 4 [facility] 10-24-2023 Mental Status [facility] 12-09-2022 Mental Status Orientation Oriented x 4 [facility] 12-09-2022 [facility] Mental Status Oriented x 4 [facility] 12-07-2022 [facility] 07-10-2022 Mental Status Orientation Oriented x 4 [facility] 07-10-2022 [facility] 04-04-2022 Mental Status Oriented x 4 [facility] 02-16-2022 Mental Status Orientation Oriented x 4 [facility] 12-26-2021 Mental Status [facility] 02-21-2021 Because of a physica l, mental, or emotional condition, do you have serious difficulty concentrating, remembering, or making decisions No 02/21/2021 5:37 PM EDT Bernadette Stanford, RN No [facility] Clinical Notes 02-10-2021 to 05-30-2025 Note Date & Type Note Facility 05-30-2025 Radiology Diagnostic study note [facility] Imaging Services [address] [place] [id number] Chest PA and Lateral MR#: [id number] Acct: [id number] Name: SUGEY WEST Rep #: [id number] : 2000 F 24 From: Jeff Cline MD PCP: Dr. Eliazar Amos MD Status: D EP ER Study:Chest PA and Lateral Date of Exam: 05/30/25 Exam# [id number] Ordering Dr: Lynne Jain DO PROCEDURE: CHEST PA AND LATERAL 05/29/2025 REASON FOR EXAM: COUGH TECHNIQUE: Procedure Code: RADCXR Modality: DX Procedure: CHEST PA AND LATERAL COMPARISON: 01/17/2025 FINDINGS: Hardware: None. Heart: The heart size is normal. Mediastinum: The mediastinal contour is unremarkable. Lungs: The lungs are clear. Bones: The bones are unremarkable. RAD/Chest PA and Lateral IMPRESSION: NO ACUTE FINDINGS. Reading Location: [facility] CC: Dr. Eliazar Amos MD; Elroy Jain DO ~ Park Landscape Architect: Signed [facility] 05-16-2025 Discharge summary [facility] 05-16-2025 Discharge summary Note Date/Time May 16, 2025 2:43pm [facility] Medical Records Department [address] [place] [id number] Emergency Department Summary 05/16/25 MR#: [id number] Acct: [id number] Name: SUGEY WEST Rep #:[id number] : 2000 24 From: Shlomo Santizo DO PCP: Dr. Eliazar Amos MD Status:R EG ER Location: ED ADDENDUM by Dr. Shlomo Santizo DO on 05/16/25 at 1443 Patient is EKG reviewed showed sinus rhythm rate of 73 bpm with AR interval 186 05/16/25 1443<Electronically signed by Shlomo [...] otherwise has no complaints just feels tired. [facility] Medical History Acute back pain Upper respiratory [...] tabs 08/21/24 Unknown Rx blood sugar diagnostic (KwabenaTouch #10 ea 11/06/24 Unkno wn History Verio test strips) blood-glucose meter (Carteruch #1 ea 11/06/24 Unknown H istory Verio Flex Meter) lancets 30 gauge (John Delica #100 ea 11/06/24 Unk nown History [...] foot commands and that she was at [facility] year [id number] Skin: Warm, dry, intact no rashes lesions [...] follow-up with her doctors in outpatient setting anabella with worsening symptoms or any concerns. She [...] % (Auto) 66.8 Lymph % (Auto) 27.3 Benzie % (Auto) 4.2 Eos % (Auto) 1.1 [...] Clarity Clear Urine pH 6.5 Ur Specific [place] 1.010 Urine Protein Negative Urine Glucose (UA) [...] here in the emergency department. Print Language: Palauan Disposition Disposition: Home, Self Care What to do if you have Problems For any increased pain, shortness of breath, bleeding, nausea or vomiting, chestpain, or any unexpected problems, contact your Primary Care Provider. Call [facility] ([phone]) or report to the closest Emergency Room. Call 911 if necessary. 05/16/25 1441 <Electronically signed by Shlomo Santizo DO> Cosigner Signature (if applicable): CC: Dr. Eliazar Amos MD ~ Signed [facility] Work Phone: 1(644) 970-736409-03-2025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 uncontrolled [facility] Diagnosis Type II diabetes mellitus with manifestations (HCC) Type II or unspecified type diabetes mellitus with other specified manifestations, not stated as uncontrolled [facility] Diagnosis Onset Date Resolution Status [...] ic Type 2 diabetes mellitus chr onic [facility] Work Phone: Evaluation note* Diagnosis Poorly controlled type 2 diabetes mellitus (HCC)- Primary Type II or unspecified type diabetes mellitus without mention of complication, not stated as uncontrolled [facility] Diagnosis Onset Date Resolution Status Cough acute Dermatitis acute Hemoptysis acute Essential hypertension chron ic Type 2 diabetes mellitus chr onic ACL (anterior cruciate ligament) rupture acute Cubital tunnel syndrome on left acute Medial meniscus tear acute [facility] Work Phone: Evaluation note* Diagnosis Onset [...] chroni c Type 2 diabetes mellitus chr [facility] Work Phone: Evaluation note* Diagnosis Onset Date [...] ligament) rupture acute Medial meniscus tear acute [facility] Work Phone: Evaluation note* Diagnosis Poorly controlled type 2 diabetes mellitus (HCC)- Primary Type II or unspecified type diabetes mellitus without mention of complication, not stated as uncontrolled [facility]* Diagnosis Diabetes mellitus treated with injections of non-insulin medication (HCC)- Primary documented [facility]* Diagnosis Acute upper respiratory infection- Primary Acute upper respiratory infections of unspecified site documented in this encounter [facility] [employer] Phone: Evaluation note* Diagnosis URI with cough and congestion- Primary Left otitis media, unspecified otitis media type Pharyngitis, unspecified etiology documented in this encounter [facility] note* Diagnosis Type II diabetes mellitus with manifestations (HCC)- Primary Type II or unspecified type diabetes mellitus with other specified manifestations, not stated as uncontrolled Poorly controlled type 2 diabetes mellitus (HCC)- Primary Type II or unspecified type diabetes mellitus without mention of complication, not stated as uncontrolled documented [facility]* Diagnosis Diabetes mellitus treated with injections of non-insulin medication (HCC)- Primary documented in this encounter [facility] noteNo assessment information [facility] Work Phone: Evaluation note* Diagnosis Diabetes mellitus treated with injections of non-insulin medication (HCC)- Primary Obesity, Class III, BMI 40-49.9 (morbid obesity) (HCC) Morbid obesity Poorly controlled type 2 diabetes mellitus (HCC) Type II or unspecified type diabetes mellitus without mention of complication, not stated as uncontrolled documented in this encounter [facility] note* Diagnosis Diabetes mellitus treated with injections of non-insulin medication (HCC) documented in this encounter [facility] course Narrative No data available for this section [facility] Hospital Discharge instructions No data available for this section [facility] Hospital Discharge instructions Additional Instructions Implant Used?: Yes [facility]: Hospital Discharge instructionsAdditional Instructions [...] taking these. They can increase confusion, fatigue, falls.[facility] Work Phone: Hospital Discharge instructionsAmbulatory Orders* Dermatology Location: None [facility] Work Phone: Hospital Discharge instructionsAdditional Instructions [...] (Dr. Vaughan) for further outpatient evaluation and management.[facility] Work Phone: Hospital Discharge instructionsAdditional Instructions Follow-up your doctor in outpatient setting. Return with worsening symptoms or any concerns. Your blood work did not show any evidence of DKA here in the emergency department. [facility] Work Phone: Hospital Discharge instructionsAdditional Instructions Your history and exam is consistent with a viral upper respiratory tract infection. This will take on average 18 to 21 days to resolve. Take the prescribed medication as directed to help control symptoms and return to the ER should you have any further concernsWGlenbeigh [facility] Work Phone: Progress note No data available for this section [facility] Reason for referral (narrative)* Diagnostic Procedure Only (Routine) - Closed Specialty Diagnoses / Procedures Referred By Lincoln evans Referred To Contact US IMAGING Diagnoses Type II diabetes mellitus with manifestations (HCC) Procedures US THYROID/PARATHYROID US SOFT TISSUE HEAD & NECK REAL TIME IMGE DOCM Paige Muller APRN.CNP [id number] [place] [phone] [place] [id number] Referral ID Status Reason Start Date Expiration Date V isits Requested Visits Authorized [id number] Closed Auto-Generate d Referral 04/05/2023 05/04/2024 1 1 [facility] for referral (narrative)No reason for referral information availableWGlenbeigh Hospital Work Phone: Reason for referral (narrative)* Medication Prior Authorization - Pending Review Specialty Diagnoses / Procedures Referred By Lincoln t Referred To Contact Paige Muller APRN.CNP [id number] [phone] Phone: tel: fax: Referral ID Status Reason Start Date Expiration Date V isits Requested Visits Authorized [id number] Pending Review 1 1 [facility] for visit Narrative* Consult, Test, Treat (Routine) - Closed Specialty Diagnoses / Procedures Referred By Contac t Referred To Contact Endocrinology Diagnoses Diabetes mellitus treated with injections of non-insulin medication (HCC) Procedures MEDICAL NUTRITION ASSMT&IVNTJ INDIV EACH 15 PR MEDICAL NUTRITION ASSMT&IVNTJ INDIV EACH 15 PR MEDICAL NUTRITION ASSMT&IVNTJ INDIV EACH 15 PR MEDICAL NUTRITION ASSMT&IVNTJ INDIV EACH 15 PR Paige Muller APRN.CNP [id number] [place] [address] Phone: tel: fax: Referral ID Status Reason Start Date Expiration Date V isits Requested Visits Authorized [id number] Closed PCP Requested Referral 01/01/2025 01/01/2026 1 1 [facility] Summary Purpose Family History No Family [...] No November 17, 2021 3:11pm Power of Solar Energy Installation Manager No November 17 3:11pm Advance Directive Response Recorded Date/ Time Living Will No December 08, 2021 6:35pm Power of Solar Energy Installation Manager No December 08 6:35pm Advance Directive Response Recorded Date/ Time Living Will No June 25 1:45pm Power of Solar Energy Installation Manager No June 25, 2022 1:45pm Advance Directive Response Recorded Date/ Time Living Will No August 12 5:07pm Power of Solar Energy Installation Manager No August 12, 2022 5:07pm Advance Directive Response Recorded Date/ Time Living Will No August 12 6:07pm Power of Solar Energy Installation Manager No August 12, 2022 6:07pm Advance Directive Response Recorded Date/ Time Living Will No October 10 11:53am Power of Solar Energy Installation Manager No October 10, 2023 11:53am Advance Directive Response Recorded Date/ Time Living Will No November 08, 2023 11:01am Power of Solar Energy Installation Manager No November 07 11:01am Advance Directive Response Recorded Date/ Time Living Will No October 14, 025 11:13pm Do you have a Healthcare Power of Solar Energy Installation Manager? No October 14, 2024 11:13pm Advance Directive Response Recorded Date/ Time Living Will No October 14 11:13pm Do you have a Healthcare Power of Solar Energy Installation Manager? No October 14, 2024 11:13pm Do you have a Healthcare Power of Solar Energy Installation Manager? No January 17, 2025 8:56pm Advance Directive Response Recorded Date/ Time Do you have a Healthcare Power of Solar Energy Installation Manager? No January 17, 2025 8:56pm Do you have a Healthcare Power of Solar Energy Installation Manager? No March 18, 2025 11:42am Advance Directive Response Recorded Date/ Time Do you have a Healthcare Power of Solar Energy Installation Manager? No January 17, 2025 8:56pm Do you have a Healthcare Power of Solar Energy Installation Manager? No April 08, 2025 11:20pm Do you have a Healthcare Power of Solar Energy Installation Manager? No March 18, 2025 11:42am Advance Directive Response Recorded Date/ Time Do you have a Healthcare Power of Solar Energy Installation Manager? No January 17, 2025 8:56pm Do you have a Healthcare Power of Solar Energy Installation Manager? No April 08, 2025 11:20pm Do you have a Healthcare Power of Solar Energy Installation Manager? No March 18, 2025 11:42am Do you have a Healthcare Power of Solar Energy Installation Manager? No May 16, 2025 12:14pm Advance Directive Response Recorded Date/ Time Do you have a Healthcare Power of Solar Energy Installation Manager? No April 08, 2025 11:20pm Do you have a Healthcare Power of Solar Energy Installation Manager? No May 30, 2025 12:47am Do you have a Healthcare Power of Solar Energy Installation Manager? No March 18, 2025 11:42am Do you have a Healthcare Power of Solar Energy Installation Manager? No May 16, 2025 12:14pm Chief Complaint and Reason for Visit Chief Complaint MUSEUM SPECIALIST-EST CARE-CONSENT ONLY-ENDO PT CONSULT MED REFILL Reason for Visit Right knee pain Chronic back pain Diabetes Essential hypertension Generalized anxiety disorder with panic attacks Former smoker Hemoglobin A1c greater than 9.0% Intertrigo Macromastia Chronic midline thoracic back pain Chronic neck pain Diabetes Shoulder pain Generalized anxiety disorder Left shoulder pain Thyromegaly Chief Complaint MUSEUM SPECIALIST-EST CARE-CONSENT ONLY-ENDO PT CONSULT MED REFILL LACERATION [...] CTS LEFT UPPER CTS PRE EMP/NON DOT/DRUG SCREEN/[facility] follow up Reason for Visit Cough Dermatitis Hemoptysis Essential hypertension Type 2 diabetes mellitus ACL (anterior cruciate ligament) rupture Cubital tunnel syndrome on left Medial meniscus tear Gastroenteritis Essential hypertension Generalized anxiety disorder with panic attacks Obesity (BMI 30-39.9) Type 2 diabetes mellitus Chief Complaint 3 M FU right knee LEFT UPPER CTS LEFT UPPER CTS PRE EMP/NON DOT/DRUG SCREEN/[facility] follow up RT KNEE ARTHROSCOPY ACL RECONSTRUCTION [...] ASSMT&IVNTJ INDIV EACH 15 PR Paige Muller APRN.TIMBER TRIMMER [address] [place] [address] Referral ID Status Reason Start Date Expiration Date Visits Requested Visits Authorized [id number] Authorized PCP Requested Referral 05/27/2024 05/27/2025 1 1 Specialty Diagnoses / Procedures Referred By Contac t Referred To Contact Nutrition Diagnoses Type II diabetes mellitus with manifestations (HCC) Procedures CONSULT TO NUTRITION THERAPY MEDICAL NUTRITION ASSMT&IVNTJ INDIV EACH 15 PR MEDICAL NUTRITION ASSMT&IVNTJ INDIV EACH 15 PR MEDICAL NUTRITION ASSMT&IVNTJ INDIV EACH 15 PR MEDICAL NUTRITION ASSMT&IVNTJ INDIV EACH 15 PR Paige Muller, WOOL MIXER.TIMBER TRIMMER [address] [place] [id number] Referral ID Status Reason Start Date Expiration Date Visits Requested Visits Authorized [id number] Authorized PCP Requested Referral 05/17/2023 05/16/2024 1 1 Specialty Diagnoses / Procedures Referred By Contac t Referred To Contact Paige Muller WOOL MIXER.TIMBER TRIMMER [address] [place] [id number] Referral ID Status Reason Start Date Expiration Date Visits Re quested Visits Authorized [id number] Closed 1 1 Specialty Diagnoses / Procedures Referred By Contac t Referred To Contact US IMAGING Diagnoses Type II diabetes mellitus with manifestations (HCC) Procedures US THYROID/PARATHYROID US SOFT TISSUE HEAD & NECK REAL TIME IMGE DOCM Paige Muller WOOL MIXER.TIMBER TRIMMER [address] [place] [address] [facility] Referral ID Status Reason Start Date Expiration Date Visits Requested Visits Authorized [id number] Authorized Auto-Generat ed Referral 04/05/2023 05/04/2024 1 1 Specialty Diagnoses / Procedures Referred By Contac t Referred To Contact Diagnoses Type II diabetes mellitus with manifestations (HCC) Procedures CONSULT TO DIABETES EDUCATION DSME/MNT MEDICAL NUTRITION ASSMT&IVNTJ INDIV EACH 15 PR MEDICAL NUTRITION ASSMT&IVNTJ INDIV EACH 15 PR MEDICAL NUTRITION ASSMT&IVNTJ INDIV EACH 15 PR MEDICAL NUTRITION ASSMT&IVNTJ INDIV EACH 15 PR Paige Muller WOOL MIXER.TIMBER TRIMMER [address] [place] [address] Referral ID Status Reason Start Date Expiration Date Visits Requested Visits Authorized [id number] Authorized PCP Requested Referral 04/05/2023 04/04/2024 1 1 Additional Source Comments INFORMATION SOURCE (unrecogn ized section and content) DATE CREATED AUTHOR 03/18/2021 [facility] DATE CREATED AUTHOR AUTHOR'S ORGANIZ ATION 11/01/2023 [facility] ([place]) DATE CREATED AUTHOR AUTHOR'S ORGANIZ ATION 07/28/2024 [facility] DATE CREATED AUTHOR AUTHOR'S ORGANIZ ATION [facility]/06[facility]2024 [facility] DATE CREATED AUTHOR AUTHOR'S ORGANIZ ATION 09/15/2024 [facility] DATE CREATED AUTHOR AUTHOR'S ORGANIZ ATION 05/24/2025 [facility] DATE CREATED AUTHOR AUTHOR'S ORGANIZ ATION 07/11/2025 [facility] Goals (unrecognized section and content) Goals [...] Lacy MD Attending Provider, Referring Provider Active Cnc Router Operator Relationship Specialty Start Date End Date Eliazar Amos MD [address] [place] [address] PCP - General Internal Medicine 04/05/23 Cnc Router Operator Relationship Specialty Start Date End Date Eliazar Amos MD [address] [place] [address] PCP - General Internal Medicine 04/05/23 Cnc Router Operator Relationship Specialty Start Date End Date Eliazar Amos MD [address] [place] [address] PCP - General Internal Medicine 04/05/23 Cnc Router Operator Relationship Specialty Start Date End Date Eliazar Amos MD [address] [place] [address] PCP - General Internal Medicine 04/05/23 Cnc Router Operator Relationship Specialty Start Date End Date Eliazar Amos MD [address] [place] [address] PCP - General Internal Medicine 04/05/23 Cnc Router Operator Relationship Specialty Start Date End Date Eliazar Amos MD [address] [place] [address] PCP - General Internal Medicine 04/05/23 Cnc Router Operator Relationship Specialty Start Date End Date Eliazar Amos MD [address] [place] [address] PCP - General Internal Medicine 04/05/23 Team [...] Primary Care Provider, Atten ding Provider Active Cnc Router Operator Relationship Specialty Start Date End Date Eliazar Amos MD [address] [place] [address] PCP - General Internal Medicine 04/05/23 Team [...] Olivares MD Attending Provider, Other Provider Active Cnc Router Operator Relationship Specialty Start Date End Date Eliazar Amos MD [address] [place] [address] PCP - General Internal Medicine 04/05/23 Cnc Router Operator Relationship Specialty Start Date End Date Eliazar Amos MD [address] [place] [address] PCP - General Internal Medicine 04/05/23 Cnc Router Operator Relationship Specialty Start Date End Date Eliazar Amos MD [address] [place] [address] PCP - General Internal Medicine 04/05/23 Cnc Router Operator Relationship Specialty Start Date End Date Eliazar Amos MD [address] [place] [address] PCP - General Internal Medicine 04/05/23 Cnc Router Operator Relationship Specialty Start Date End Date Eliazar Amos MD [address] [place] [address] PCP - General Internal Medicine 04/05/23 Cnc Router Operator Relationship Specialty Start Date End Date Eliazar Amos MD [address] [place] [address] PCP - General Internal Medicine 04/05/23 Cnc Router Operator Relationship Specialty Start Date End Date Eliazar Amos MD [address] [place] [address] PCP - General Internal Medicine 04/05/23 Team [...] November 15, 2024 End: November 15, 2024 Cnc Router Operator Relationship Specialty Start Date End Date Eliazar Amos MD [address] [place] [address] PCP - General Internal Medicine 04/05/23 Cnc Router Operator Relationship Specialty Start Date End Date Eliazar Amos MD [address] [place] [address] PCP - General Internal Medicine 04/05/23 Team [...] May 02, 2025 End: May 02, 2025 Cnc Router Operator Relationship Specialty Start Date End Date Eliazar Amos MD [address] [place] [address] PCP - General Internal Medicine 04/05/23 Team [...] 08, 2025 Dr. Timo Harris DO Attending physician Active Start: April 08, [...] End: May 16, 2025 Dr. Shlomo Santizo , DO Emergency Departme nt Physician Active [...] Member Role: Primary Care Physician Address: Address: [address] [place] [address]- Care Team Related Persons Name: DELORES WEST Care Team Personnel Name: ELIAZAR AMOS MD Member Role: Primary Care Physician Address: Address: [address] [place] [address]- Name: DEAN LYON MD Position: ED Physician Member Role: ED Physician Address: Address: [address] [place] [address] Care Team Related Persons Name: DELORES WEST Source Comments (unrecognize d section and content) In the event this informatio n is protected by the Federal Confidentiality of Alcohol and Drug Abuse Patient Records regulations: The Federal rules restrict any use of the information to criminally investigate or prosecute any alcohol or drug abuse patient.[facility] the event this information is protected by the Federal Confidentiality of Alcohol and Drug Abuse Patient Records regulations: The Federal rules restrict any use of the information to criminally investigate or prosecute any alcohol or drug abuse patient.[facility] the event this information is protected by the Federal Confidentiality of Alcohol and Drug Abuse Patient Records regulations: The Federal rules restrict any use of the information to criminally investigate or prosecute any alcohol or drug abuse patient.[facility] the event this information is protected by the Federal Confidentiality of Alcohol and Drug Abuse Patient Records regulations: The Federal rules restrict any use of the information to criminally investigate or prosecute any alcohol or drug abuse patient.[facility] the event this information is protected by the Federal Confidentiality of Alcohol and Drug Abuse Patient Records regulations: The Federal rules restrict any use of the information to criminally investigate or prosecute any alcohol or drug abuse patient.[facility] the event this information is protected by the Federal Confidentiality of Alcohol and Drug Abuse Patient Records regulations: The Federal rules restrict any use of the information to criminally investigate or prosecute any alcohol or drug abuse patient.[facility] the event this information is protected by the Federal Confidentiality of Alcohol and Drug Abuse Patient Records regulations: The Federal rules restrict any use of the information to criminally investigate or prosecute any alcohol or drug abuse patient.[facility] the event this information is protected by the Federal Confidentiality of Alcohol and Drug Abuse Patient Records regulations: The Federal rules restrict any use of the information to criminally investigate or prosecute any alcohol or drug abuse patient.[facility] the event this information is protected by the Federal Confidentiality of Alcohol and Drug Abuse Patient Records regulations: The Federal rules restrict any use of the information to criminally investigate or prosecute any alcohol or drug abuse patient.[facility] the event this information is protected by the Federal Confidentiality of Alcohol and Drug Abuse Patient Records regulations: The Federal rules restrict any use of the information to criminally investigate or prosecute any alcohol or drug abuse patient.[facility] the event this information is protected by the Federal Confidentiality of Alcohol and Drug Abuse Patient Records regulations: The Federal rules restrict any use of the information to criminally investigate or prosecute any alcohol or drug abuse patient.[facility] the event this information is protected by the Federal Confidentiality of Alcohol and Drug Abuse Patient Records regulations: The Federal rules restrict any use of the information to criminally investigate or prosecute any alcohol or drug abuse patient.[facility] the event this information is protected by the Federal Confidentiality of Alcohol and Drug Abuse Patient Records regulations: The Federal rules restrict any use of the information to criminally investigate or prosecute any alcohol or drug abuse patient.[facility] the event this information is protected by the Federal Confidentiality of Alcohol and Drug Abuse Patient Records regulations: The Federal rules restrict any use of the information to criminally investigate or prosecute any alcohol or drug abuse patient.[facility] the event this information is protected by the Federal Confidentiality of Alcohol and Drug Abuse Patient Records regulations: The Federal rules restrict any use of the information to criminally investigate or prosecute any alcohol or drug abuse patient.[facility]In the event this information is protected by the Federal Confidentiality of Alcohol and Drug Abuse Patient Records regulations: The Federal rules restrict any use of the information to criminally investigate or prosecute any alcohol or drug abuse patient.[facility]In the event this information is protected by the Federal Confidentiality of Alcohol and Drug Abuse Patient Records regulations: The Federal rules restrict any use of the information to criminally investigate or prosecute any alcohol or drug abuse patient.[facility] the event this information is protected by the Federal Confidentiality of Alcohol and Drug Abuse Patient Records regulations: The Federal rules restrict any use of the information to criminally investigate or prosecute any alcohol or drug abuse patient.[facility]In the event this information is protected by the Federal Confidentiality of Alcohol and Drug Abuse Patient Records regulations: The Federal rules restrict any use of the information to criminally investigate or prosecute any alcohol or drug abuse patient.[facility]In the event this information is protected by the Federal Confidentiality of Alcohol and Drug Abuse Patient Records regulations: The Federal rules restrict any use of the information to criminally investigate or prosecute any alcohol or drug abuse patient.[facility]In the event this information is protected by the Federal Confidentiality of Alcohol and Drug Abuse Patient Records regulations: The Federal rules restrict any use of the information to criminally investigate or prosecute any alcohol or drug abuse patient.[facility]In the event this information is protected by the Federal Confidentiality of Alcohol and Drug Abuse Patient Records regulations: The Federal rules restrict any use of the information to criminally investigate or prosecute any alcohol or drug abuse patient.[facility]In the event this information is protected by the Federal Confidentiality of Alcohol and Drug Abuse Patient Records regulations: The Federal rules restrict any use of the information to criminally investigate or prosecute any alcohol or drug abuse patient.[facility]In the event this information is protected by the Federal Confidentiality of Alcohol and Drug Abuse Patient Records regulations: The Federal rules restrict any use of the information to criminally investigate or prosecute any alcohol or drug abuse patient.[facility]In the event this information is protected by the Federal Confidentiality of Alcohol and Drug Abuse Patient Records regulations: The Federal rules restrict any use of the information to criminally investigate or prosecute any alcohol or drug abuse patient.[facility]In the event this information is protected by the Federal Confidentiality of Alcohol and Drug Abuse Patient Records regulations: The Federal rules restrict any use of the information to criminally investigate or prosecute any alcohol or drug abuse patient.[facility]In the event this information is protected by the Federal Confidentiality of Alcohol and Drug Abuse Patient Records regulations: The Federal rules restrict any use of the information to criminally investigate or prosecute any alcohol or drug abuse patient.[facility]In the event this information is protected by the Federal Confidentiality of Alcohol and Drug Abuse Patient Records regulations: The Federal rules restrict any use of the information to criminally investigate or prosecute any alcohol or drug abuse patient.[facility]In the event this information is protected by the Federal Confidentiality of Alcohol and Drug Abuse Patient Records regulations: The Federal rules restrict any use of the information to criminally investigate or prosecute any alcohol or drug abuse patient.[facility]In the event this information is protected by the Federal Confidentiality of Alcohol and Drug Abuse Patient Records regulations: The Federal rules restrict any use of the information to criminally investigate or prosecute any alcohol or drug abuse patient.[facility] Reason for Visit (unrecogniz ed section [...] & NECK REAL TIME IMGE Paige Littlejohn, WOOL 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 Not available yetDivillanueva Reason Comments Medication Problem Results Prior Auth [...] BE BASED ON THE PRIMARY CLINICAL RECORDS. [employer] provides no warranty or guarantee of the accuracy or completeness of information in this document.
--- NOTE | 2025-08-03 19:21 | EX.ED.DYSGE1 ---
HPI History of Present Illness Chief Complaint: General Illness Informant: patient Onset/Context/Timing Onset: Yesterday Context: Gradual Onset Timing: Continuous Quality: Burning Location: Chest Worsened by: Breathing Relieved by: Nothing Narrative Narrative: Patient presents with cough, fever, and sore throat that began yesterday. Patient states it is gradually gotten worse. Patient states she has some burning in her chest. Patient states it is worse with breathing. Patient states nothing seems to help with it. Patient states she has been taking Tylenol with no relief. Patient admits to some nasal congestion and rhinorrhea. Patient also admits to mild headache. Patient admits to some nausea but denies any vomiting. Patient admits to some diarrhea. Patient admits to a cough with some yellow sputum. Patient admits to subjective fevers and chills. [facility] Medical History Acute back pain Upper respiratory infection Poor appetite Wears glasses Depression Anxiety Diabetes Low iron Easy bruising Injury of head and neck Migraine headache Dietary restriction Vapes nicotine containing substance Asthma Shortness of breath on exertion History of pain when walking History of edema Cardiology follow-up encounter Hypertension Gastroenteritis Screening for thyroid disorder Dermatitis Hemoptysis Cough Cubital tunnel syndrome on left Ulnar neuropathy Preoperative evaluation to rule out surgical contraindication Migraine Type 2 diabetes mellitus Post concussion syndrome Hypersomnia Left shoulder pain Thyromegaly Thyromegaly Vision problems High cholesterol Chronic back pain Right knee pain Generalized anxiety disorder with panic attacks Generalized anxiety disorder Obesity (BMI 30-39.9) Paresthesia Low back pain Shortness of breath Left ventricular noncompaction Pneumonia Asthma Essential hypertension Insomnia History of migraine Diabetes Depression Home Medications ?Medication ?Instructions ?Recorded ?Last Taken ?Type blood-glucose sensor (FreeStyle #1 ea 05/03/24 Unknown History Gualberto 3 Sensor device) triamcinolone acetonide 0.1 % 1 applic topical BID PRN rash #30 05/03/24 Unknown Rx topical ointment grams sumatriptan succinate 25 mg tablet See Rx Instructions PO .COMPLEX 07/19/24 Unknown Rx (Imitrex) #14 tabs hydroxyzine HCl 25 mg tablet 25 mg PO BID PRN anxiety #90 tabs 08/21/24 Unknown Rx blood sugar diagnostic (OneTouch #10 ea 11/06/24 Unknown History Verio test strips) blood-glucose meter (OneTouch #1 ea 11/06/24 Unknown History Verio Flex Meter) lancets 30 gauge (OneTouch Delica #100 ea 11/06/24 Unknown History Plus Lancet) cholecalciferol (vitamin D3) 125 125 mcg PO QDAY #90 tabs 11/15/24 Unknown Rx mcg (5,000 unit) tablet cyanocobalamin (vitamin B-12) 1,000 mcg PO QDAY #90 tabs 11/15/24 Unknown Rx 1,000 mcg tablet albuterol sulfate 90 mcg/actuation 2 puff inhalation Q6H PRN 01/03/25 Unknown Rx aerosol inhaler Shortness Of Breath Or Wheezing #8.5 grams cyclobenzaprine 10 mg tablet 10 mg PO TID PRN Muscle Spasm #20 06/30/25 Unknown Rx TABLETS ibuprofen 600 mg tablet 600 mg PO Q6H PRN PRN pain #20 06/30/25 Unknown Rx TABLETS hydroxyzine HCl 10 mg tablet 10 mg PO QHS PRN anxiety #30 tabs 07/04/25 Unknown Rx quetiapine 25 mg tablet (Seroquel) 25 mg PO QHS #90 tabs 07/04/25 Unknown Rx dulaglutide 1.5 mg/0.5 mL 1.5 mg subcut QWEEK 08/03/25 Unknown History subcutaneous pen injector (Trulicity) Allergy/AdvReac Type Severity Reaction Status Date / Time vancomycin Allergy Mild Hives Verified 08/03/25 18:49 amoxicillin Allergy Unknown unknown Verified 08/03/25 18:49 azithromycin (From Zithromax Allergy Unknown unknown Verified 08/03/25 18:49 Z-Clyde) Penicillins Allergy Unknown unknown Verified 08/03/25 18:49 Family History Father No problems noted. Grandfather Diabetes Grandmother Hypertension Aunt Hypertension Other Anxiety Arthritis Asthma Depression Osteoporosis Respiratory disease Severe allergy Surgical History History of nasal cauterization History of tonsillectomy and adenoidectomy Hx of myringotomy History of nasal cauterization Social History housing: house Smoking Status: Current every day smoker tobacco type: e-cigarettes Tobacco: How many years used: 4 how long ago did patient quit smokin09/04/2020- pt vapes second hand exposure: No alcohol intake: current alcohol intake frequency: a few times a month Alcohol type: hard liquor substance use type: does not use caffeine: No what type of physical activity do you participate in: walking frequency: daily seatbelt use: sometimes additional social history: DOES NOT TAKE ASPIRIN DOES TAKE IBUPROFEN NEEDED pt admits to vaping, denies marijuana use, denies edibles ROS ROS ED Constitutional Constitutional ED: Reports chills, fever(s) and subjective Eyes Eyes: Denies blurry vision or change in vision ENT ENT ED: Reports ear pain bilateral; Denies rhinorrhea or sore throat Cardiovascular Cardiovascular: Reports chest pain; Denies palpitations Respiratory/Chest Respiratory/Chest: Reports cough and dyspnea Gastrointestinal Gastrointestinal: Reports diarrhea; Denies nausea or vomiting Genitourinary Genitourinary ED: Denies dysuria or hematuria Musculoskeletal Musculoskeletal: Denies back pain or neck pain Integumentary Denies abscess or rash Neurologic Neurologic: Reports headache(s); Denies weakness Allergic/Immunologic Allergic/Immunologic ED: Denies mouth swelling or urticaria EXAM Physical Exam Const Vital Signs: 08/03/25 18:47 08/03/25 19:01 08/03/25 19:43 Temperature 99 F Temperature Source Temporal Pulse Rate 79 81 Respiratory Rate 18 18 Respiratory Effort Normal Respiratory Pattern Normal Normal Blood Pressure 161/108 H Blood Pressure Mean 125 Pulse Ox 100 Oxygen Delivery Method Room Air Positive well nourished and well developed General Appearance ED: well developed and NAD HEENT Reports moist mucous membranes Neck supple and no JVD Chest Wall palpation of chest normal Resp normal respiratory effort and clear to auscultation bilaterally Cardio regular rate and regular rhythm GI non-tender and non-distended Palpation: soft Neuro oriented x3, CN's II-XII intact bilaterally and no sensory deficits noted Sensorium / Orientation: alert Motor Exam: strength 5/5 throughout Psych mental status grossly normal MDM MDM MDM Narrative Medical decision making narrative: Differential diagnosis includes pneumonia, bronchitis, and viral upper respiratory infection. Chest x-ray will be obtained to assess for pneumonia or bronchitis. COVID-19, influenza, and RSV PCR will be obtained to assess for viral illness. Lab Data Attestation: I reviewed the patient's lab results. Lab results narrative: COVID-19 PCR was reviewed and was negative. Influenza PCR was reviewed and was negative for influenza A and influenza B. RSV PCR was reviewed and was negative. Radiography Chest X-Ray - ED: 2 View, Read by ED Physician, Read by Radiologist and Normal Diagnostic Testing: Clinical Impression(s) from Imaging Studies Chest X-Ray 08/03/25 19:22 IMPRESSION: As above. Reading Location: [id number] and lateral chest x-ray was obtained. There are 2 views. On my independent interpretation, lung núñez are clear. There is normal cardiac silhouette. Bony thorax is normal. There is no acute process noted. Radiologist also interpreted the x-ray and agrees. Treatment and Re-Evaluation :: Patient was given a DuoNeb aerosol here. Patient was advised of her findings. Patient was advised that this is likely a viral upper respiratory infection. Patient was instructed to drink plenty of fluids. Patient was instructed to take Tylenol or ibuprofen as needed for any fevers or aches. Patient was instructed to follow-up with her primary care physician in 5 to 7 days. Patient understood and was agreeable with the plan. All questions were answered. Discharge Plan Triage Chief Complaint: General Illness ED Provider: Fortunato Medina Dx/Rx/DC Orders Clinical Impression: Viral upper respiratory tract infection, Type 2 diabetes mellitus Instructions: ED URI, Viral, No Abx (Adult) Prescriptions: No Action (DME) FreeStyle Gualberto 3 Sensor Device See Rx Instructions .ROUTE .MEDSUPPLY Qty: 1 Patient Comments: [NO ORIGINAL SIG] Rx Instructions: As directed triamcinolone acetonide 0.1 % ointment 1 applic topical BID PRN (Reason: rash) Qty: 30 1RF sumatriptan succinate [Imitrex] 25 mg tablet See Rx Instructions PO .COMPLEX Qty: 14 2RF Rx Instructions: take 1 tab at onset of headache; if no relief may repeat 1 tab after at least 2 hrs; max = 4 tabs/24 hr PO cholecalciferol (vitamin D3) 125 mcg (5,000 unit) tablet 125 mcg PO QDAY Qty: 90 1RF cyanocobalamin (vitamin B-12) 1,000 mcg tablet 1,000 mcg PO QDAY Qty: 90 1RF (DME) blood-glucose meter [OneTouch Verio Flex meter] Misc See Rx Instructions .ROUTE .MEDSUPPLY Qty: 1 Rx Instructions: As directed (DME) OneTouch Verio test strips Strip See Rx Instructions .ROUTE BID Qty: 10 Rx Instructions: As directed (DME) lancets [OneTouch Delica Plus Lancet] 30 gauge misc See Rx Instructions .ROUTE BID Qty: 100 Rx Instructions: As directed hydroxyzine HCl 10 mg tablet 10 mg PO QHS PRN (Reason: anxiety) Qty: 30 0RF quetiapine [Seroquel] 25 mg tablet 25 mg PO QHS Qty: 90 1RF cyclobenzaprine 10 mg tablet 10 mg PO TID PRN (Reason: Muscle Spasm) Qty: 20 0RF ibuprofen 600 mg tablet 600 mg PO Q6H PRN PRN (Reason: pain) Qty: 20 0RF Trulicity 1.5 mg/0.5 mL pen injector 1.5 mg subcut QWEEK hydroxyzine HCl 25 mg tablet 25 mg PO BID PRN (Reason: anxiety) Qty: 90 1RF albuterol sulfate 90 mcg/actuation HFA aerosol inhaler 2 puff INHALATION Q6H PRN (Reason: Shortness Of Breath Or Wheezing) Qty: 8.5 1RF Primary Care Provider: Delma Amos Referrals: Delma Amos MD [Primary Care Provider, Internal Medicine] - 5-7 Days Print Language: Slovenian Disposition Disposition: Home, Self Care
--- NOTE | 2025-08-03 19:22 | RAD_ITS ---
PROCEDURE: CHEST PA AND LATERAL 08/03/2025 REASON FOR EXAM: COUGH TECHNIQUE: Procedure Code: RADCXR Modality: DX Procedure: CHEST PA AND LATERAL COMPARISON: 05/30/2025. FINDINGS: The lungs are clear. The cardiomediastinal silhouette appears unremarkable. No acute osseous abnormality. RAD/Chest PA and Lateral IMPRESSION: As above. Reading Location: [id number]
[2025-08-03 19:43] VITALS: PULSE 81; RESP 18
[2025-08-03 20:52] VITALS: BP 160/98; PULSE 88; RESP 16; TEMP 36.7; O2SAT 97
== END 2025-08-03 20:52 | disposition home or self-care (01) ==
PROVIDERS: Emergency Provider Emergency Medicine; PCP Internal Medicine; Visit Provider Emergency Medicine
DX: J06.9 Acute upper respiratory infection, unspecified (principal); E11.40 Type 2 diabetes mellitus with diabetic neuropathy, unspecified; I10 Essential (primary) hypertension; F32.A Depression, unspecified; F41.1 Generalized anxiety disorder; E78.00 Pure hypercholesterolemia, unspecified; J45.909 Unspecified asthma, uncomplicated; G43.909 Migraine, unspecified, not intractable, without status migrainosus; F17.290 Nicotine dependence, other tobacco product, uncomplicated; Z79.85 Long-term (current) use of injectable non-insulin antidiabetic drugs; Z79.899 Other long term (current) drug therapy
CPT/HCPCS: 71046; 87631; 94640; 99282